=== PATIENT | male | born 1990 | race Caucasian/White ===

== ENCOUNTER 2023-09-28 17:10 | Emergency (ER) | payer MEDICAID, SELFPAY ==
[2023-09-28 17:12] VITALS: BP 193/139; PULSE 118; RESP 18; TEMP 36.7; O2SAT 98; BMI 26.5
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
--- NOTE | 2023-09-28 19:33 | EKG12_ITS ---
Test Reason : MHC Blood Pressure : / mmHG Vent. Rate : 098 BPM Atrial Rate : 098 BPM P-R Int : 142 ms QRS Dur : 114 ms QT Int : 334 ms P-R-T Axes : 063 087 043 degrees QTc Int : 426 ms Normal sinus rhythm Incomplete right bundle branch block Borderline ECG Confirmed by Trenton Vargas ([id number]), non linear editor NAS NOYOLA ([id number]) on 10/01/2023 10:26:42 AM Referred By: Confirmed By:Trenton Vargas
[2023-09-28 20:00] VITALS: RESP 16; O2SAT 98
[2023-09-28 20:58] LABS: Absolute Lymphocyte Count 1.95 X10^3/uL (0.83-4.51); Absolute Neutrophil Count 7.3 X10^3/uL (2.0-7.7); Basophil# 0.05 X10^3/uL; Basophil% 0.5 % (0-1); Eosinophil# 0.03 X10^3/uL; Eosinophils% 0.3 % (0-5); Hematocrit 44.8 % (40-54); Hemoglobin 14.9 g/dL (13.0-16.5); Lymphocyte # 1.95 X10^3/ul (0.83-4.51); Lymphocyte % 19.5 % (19-41); Mean Corp Hgb Conc 33.3 g/dL (32-36); Mean Corpuscular Hgb 29.8 pg (27.0-32.0); Mean Corpuscular Volume 89.6 fL (80-94); Mean Platelet Vol. 10.8 fl (6.2-12.0); Monocyte# 0.59 X10^3/uL; Monocyte% 5.9 % (0-10); NRBC Flagged by Analyzer 0 % (0-5); Neutrophil # 7.33 X10^3/uL (2.7-7.7); Neutrophil % 73.3 % (47-70); Platelet Count 256 K/mm3 (150-450); RBC Distribution Width CV 12.3 % (11.6-14.6); RBC Distribution Width SD 40.1 fl (35.1-43.9)
[2023-09-28 21:09] LABS: Amphetamine Urine VISTA NEGATIVE (<1000 ng/mL); Barbiturate Urine VISTA NEGATIVE (< 200 ng/mL); Benzodiazepine Urine VISTA NEGATIVE (< 200 ng/mL); Cocaine Urine VISTA NEGATIVE (< 300 ng/mL); Ecstacy Urine VISTA NEGATIVE (< 500 ng/mL); Methadone Urine VISTA NEGATIVE (< 300 ng/mL); PCP Urine VISTA NEGATIVE (< 25 ng/mL); THC Urine VISTA POSITIVE (< 50 ng/mL); Vista UDS pH Range 5
[2023-09-28 21:11] LABS: Anion Gap 2 (5-15); BUN 16 mg/dL (7-18); BUN/Creat Ratio 15.7 RATIO (10-20); Calcium,Total 8.7 mg/dL (8.5-10.1); Chloride 113 mmol/L (98-107); Creatinine, Serum 1.02 mg/dL (0.70-1.30); EST Glomerular Filtration Rate 88 mL/min (>60); Est Glom Filt Rate - Afr Amer 107 mL/min (>60); Estimated Creatinine Clearance 105.36 ml/min; Glucose 114 mg/dL (74-106); Potassium 3.7 mmol/L (3.5-5.1); Sodium Level 143 mmol/L (136-145)
[2023-09-28 22:00] VITALS: RESP 16; O2SAT 98
[2023-09-29] VITALS: BP 126/74; PULSE 78; RESP 16; TEMP 36.6; O2SAT 97
[2023-09-29 02:00] VITALS: PULSE 74; RESP 16; O2SAT 97
[2023-09-29 04:00] VITALS: BP 122/72; PULSE 72; RESP 16; TEMP 36.6; O2SAT 98
[2023-09-29 06:00] VITALS: PULSE 71; RESP 16; O2SAT 97
[2023-09-29 06:49] VITALS: BP 122/72; PULSE 71; RESP 16; TEMP 36.6; O2SAT 98
--- NOTE | 2023-09-29 07:46 | ED.RN ---
report given to transport team.
--- NOTE | 2023-09-29 08:02 | ED.RN ---
called facility to confirm they had recieved report. no further questions. let them know pt has left our facility
== END 2023-09-29 07:59 ==
PROVIDERS: Emergency Provider Emergency Medicine; Visit Provider Emergency Medicine
DX: F23 Brief psychotic disorder (principal); F12.90 Cannabis use, unspecified, uncomplicated
CPT/HCPCS: 80048; 80307; 80320; 85025; 87635; 93005; 99283; G0480

== ENCOUNTER 2023-12-13 19:06 | Emergency (ER) | payer MEDICAID, SELFPAY ==
[2023-12-13 19:07] VITALS: BP 152/90; PULSE 106; RESP 16; TEMP 36.6; O2SAT 99; BMI 23.6
--- NOTE | 2023-12-13 19:26 | EKG12_ITS ---
Test Reason : DYSRHYTHMIA Blood Pressure : / mmHG Vent. Rate : 097 BPM Atrial Rate : 097 BPM P-R Int : 136 ms QRS Dur : 110 ms QT Int : 332 ms P-R-T Axes : 069 092 055 degrees QTc Int : 421 ms Normal sinus rhythm Rightward axis Incomplete right bundle branch block Borderline ECG Confirmed by Trenton Vargas ([id number]), publication editor DAILY LOU ([id number]) on 12/17/2023 10:24:14 AM Referred By: Confirmed By:Trenton Vargas
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
--- NOTE | 2023-12-13 19:40 | RAD_ITS ---
STUDY: X-RAY CHEST REASON FOR EXAM: Male, 33 years old. chest pain TECHNIQUE: Single frontal view of the chest. COMPARISON: None. FINDINGS: The lungs are clear and expanded. There is no demonstrated pleural abnormality. Normal size heart. Normal mediastinum and sharad. Normal visualized pulmonary arteries. Normal visualized aortic arch and descending thoracic aorta. Normal visualized thoracic spine. Normal visualized ribs, clavicles, and shoulders. There is no demonstrated abnormality of the visualized soft tissue structures of the upper abdomen. RAD/Chest 1 View (Portable) IMPRESSION: Normal x-ray examination of the chest. Electronically Signed: Gaston Sprague MD at 20:18 EDT ,
[2023-12-13 19:48] LABS: Absolute Lymphocyte Count 2.44 X10^3/uL (0.83-4.51); Absolute Neutrophil Count 8.6 X10^3/uL (2.0-7.7); Basophil# 0.07 X10^3/uL; Basophil% 0.6 % (0-1); Eosinophil# 0.13 X10^3/uL; Hematocrit 46.1 % (40-54); Hemoglobin 15.3 g/dL (13.0-16.5); Lymphocyte # 2.44 X10^3/ul (0.83-4.51); Lymphocyte % 19.5 % (19-41); Mean Corp Hgb Conc 33.2 g/dL (32-36); Mean Corpuscular Volume 87.3 fL (80-94); Monocyte# 1.25 X10^3/uL; NRBC Flagged by Analyzer 0 % (0-5); Neutrophil # 8.57 X10^3/uL (2.7-7.7); Neutrophil % 68.3 % (47-70); Platelet Count 234 K/mm3 (150-450); RBC Distribution Width CV 12.7 % (11.6-14.6); RBC Distribution Width SD 39.9 fl (35.1-43.9); Red Blood Count 5.28 M/mm3 (4.6-6.2); White Blood Count 12.5 K/mm3 (4.4-11.0)
[2023-12-13 20:07] LABS: Amphetamine Urine VISTA POSITIVE (<1000 ng/mL); Barbiturate Urine VISTA NEGATIVE (< 200 ng/mL); Benzodiazepine Urine VISTA NEGATIVE (< 200 ng/mL); Cocaine Urine VISTA NEGATIVE (< 300 ng/mL); Ecstacy Urine VISTA POSITIVE (< 500 ng/mL); Methadone Urine VISTA NEGATIVE (< 300 ng/mL); PCP Urine VISTA NEGATIVE (< 25 ng/mL); THC Urine VISTA POSITIVE (< 50 ng/mL); Vista UDS pH Range 5
[2023-12-13 20:09] LABS: ALB/GLOB Ratio 1.2 RATIO (0.9-2.4); AST(SGOT) 32 U/L (15-37); Alanine Aminotransfer ALT/SGPT 27 U/L (16-61); Albumin, Serum 3.9 g/dL (3.2-5.0); Alkaline Phosphatase 68 U/L (45-117); Anion Gap 6 (5-15); BUN 21 mg/dL (7-18); BUN/Creat Ratio 15.7 RATIO (10-20); Calcium,Total 9.1 mg/dL (8.5-10.1); Chloride 106 mmol/L (98-107); Creatinine, Serum 1.34 mg/dL (0.70-1.30); EST Glomerular Filtration Rate 65 mL/min (>60); Est Glom Filt Rate - Afr Amer 78 mL/min (>60); Estimated Creatinine Clearance 81.95 ml/min; Globulin 3.3 g/dL (2.2-4.2); Glucose 105 mg/dL (74-106); Potassium 3.6 mmol/L (3.5-5.1); Protein, Total 7.2 g/dL (6.4-8.2); Sodium Level 139 mmol/L (136-145); Troponin-I HS 9 pg/mL (3.0-78.0)
[2023-12-13 20:51] LABS: CPK Total, Creatine Kinase 488 U/L (39-308)
[2023-12-13 21:10] VITALS: BP 147/103; PULSE 89; RESP 17; O2SAT 97
[2023-12-13 23:00] VITALS: PULSE 70; RESP 17; TEMP 36.7; O2SAT 96
[2023-12-14 00:26] VITALS: BP 125/97; PULSE 99; RESP 17; TEMP 36.6; O2SAT 98
== END 2023-12-14 00:29 | disposition home or self-care (01) ==
PROVIDERS: Physician Assistant; Emergency Provider Emergency Medicine; Visit Provider Emergency Medicine
DX: R44.0 Auditory hallucinations (principal); F19.19 Other psychoactive substance abuse with unspecified psychoactive substance-induced disorder; F15.10 Other stimulant abuse, uncomplicated; F90.9 Attention-deficit hyperactivity disorder, unspecified type; F17.210 Nicotine dependence, cigarettes, uncomplicated; Z79.899 Other long term (current) drug therapy
CPT/HCPCS: 71045; 80053; 80307; 80320; 82550; 84484; 85025; 93005; 99283; G0480

== ENCOUNTER 2023-12-21 17:30 | Emergency (ER) | payer MEDICAID, SELFPAY ==
[2023-12-21 17:31] VITALS: BP 245/228; PULSE 115; RESP 17; TEMP 36.4; O2SAT 97; BMI 24.3
--- NOTE | 2023-12-21 17:49 | EX.ED.VIS.PS ---
HPI HPI - Psych History of Present Illness Chief Complaint: Mental Health Detail of Chief Complaint: Patient presents because he needs refills on his psychiatric meds. Onset/Context/Timing Onset: Days Timing: Continuous Worsened by: Situational factors (No prescription refills) Associated Symptoms Specific plan (suicidal thought): Not applicable Narrative Narrative: Patient is a 33-year-old male. [facility] in [place]. He was discharged to home on multiple meds. He has no refills. He presents because he wants help and has no refills. He is concerned he will have a lapse and does not want that to occur. He has otherwise no complaints. Prior similar symptoms: Yes Recent Illness/Hospitalization: Yes PFSH PFSH Medical History Smoker Home Medications ?Medication ?Instructions ?Recorded ?Last Taken ?Type guanfacine 2 mg tablet 2 mg PO QHS #30 tabs 12/21/23 Unknown Rx hydroxyzine pamoate 50 mg capsule 50 mg PO TID PRN anxiety #90 caps 12/21/23 Unknown Rx lamotrigine 25 mg tablet 50 mg (2 x 25 mg) PO QHS #60 tabs 12/21/23 Unknown Rx risperidone 0.5 mg tablet 0.5 mg PO QHS #30 tabs 12/21/23 Unknown Rx trazodone 50 mg tablet 50 mg PO QHS PRN insomnia #30 tabs 12/21/23 Unknown Rx Allergy/AdvReac Type Severity Reaction Status Date / Time No Known Allergies Allergy Verified 12/21/23 17:37 Social History Smoking Status: Current every day smoker tobacco type: cigarettes ROS ROS ED Constitutional Constitutional ED: Denies chills, fever(s) or subjective Eyes Eyes: Denies blurry vision or change in vision Cardiovascular Cardiovascular: Denies chest pain or palpitations Respiratory/Chest Respiratory/Chest: Denies cough, dyspnea or dyspnea on exertion Gastrointestinal Gastrointestinal: Denies diarrhea, nausea or vomiting Musculoskeletal Musculoskeletal: Denies arthralgias or myalgias Psychiatric Psychiatric: Reports anxiety; Denies depression, suicidal ideation or suicidal thoughts Endocrine Endocrinology: Denies polydipsia or polyphagia Hematologic/Lymphatic Hematologic/Lymphatic: Denies easy bleeding or easy bruising EXAM Physical Exam Const Vital Signs: 12/21/23 17:31 Temperature 97.6 F L Temperature Source Temporal Pulse Rate 115 H Respiratory Rate 17 Blood Pressure 245/228 H Blood Pressure Mean 233 Pulse Ox 97 Oxygen Delivery Method Room Air Positive well nourished and well developed General Appearance ED: well developed and NAD; Negative for pallor HEENT Reports moist mucous membranes normocephalic and atraumatic Eyes PERRL and EOMs intact bilaterally General Eye ED: Negative for pale conjunctiva or scleral icterus Resp normal respiratory effort Cardio Rate: regular rate Rhythm: regular rhythm Extremity normal to inspection Neuro oriented x3 and CN's II-XII intact bilaterally Sensorium / Orientation: alert Psych mental status grossly normal, thought process normal, cooperative, denies hallucinations, denies homicidal ideation and denies suicidal ideation; Negative for speech normal or activity/motor behavior normal Appearance: grossly normal Attitude: engaged, No uncooperative, No evasive, No belligerent, No agitated, No aggressive and No hostile Activity / Motor Behavior: appropriate eye contact and hyperactive Speech: rapid and pressured Mood & Affect: elevated mood Thought Process: normal thought process Thought Content: normal thought content Attention / Concentration: attention grossly intact Memory / Cognition: memory grossly intact Insight: fair Judgement: fair Skin General Skin Exam: Negative for jaundice or pallor MDM MDM MDM Narrative Medical decision making narrative: Patient presents because he is experiencing some anxiety and agitation. He states he is concerned because he does not have refills on his medication. Will refill his medication. Discharge Plan Triage Chief Complaint: Mental Health ED Provider: Justin Linda Dx/Rx/DC Orders Clinical Impression: Schizoaffective disorder, Difficulty refilling prescriptions, Prescription refill Prescriptions: New guanfacine 2 mg tablet 2 mg PO QHS Qty: 30 0RF lamotrigine 25 mg tablet 50 mg PO QHS Qty: 60 0RF risperidone 0.5 mg tablet 0.5 mg PO QHS Qty: 30 0RF trazodone 50 mg tablet 50 mg PO QHS PRN (Reason: insomnia) Qty: 30 0RF hydroxyzine pamoate 50 mg capsule 50 mg PO TID PRN (Reason: anxiety) Qty: 90 0RF Primary Care Provider: Care Physician,No Primary Referrals: Counseling,Center [Group of Physicians] - 1-2 Weeks Care Physician,No Primary [Primary Care Provider] - Print Language: Tanzanian Disposition Disposition: Home, Self Care
[2023-12-21 18:31] VITALS: BP 127/80; PULSE 67; RESP 16; O2SAT 99
[2023-12-21 18:38] LABS: Absolute Lymphocyte Count 2.62 X10^3/uL (0.83-4.51); Absolute Neutrophil Count 3.4 X10^3/uL (2.0-7.7); Basophil# 0.04 X10^3/uL; Basophil% 0.6 % (0-1); Eosinophil# 0.32 X10^3/uL; Eosinophils% 4.6 % (0-5); Hematocrit 42.5 % (40-54); Hemoglobin 14.2 g/dL (13.0-16.5); Lymphocyte # 2.62 X10^3/ul (0.83-4.51); Lymphocyte % 37.9 % (19-41); Mean Corp Hgb Conc 33.4 g/dL (32-36); Mean Corpuscular Volume 86.9 fL (80-94); Mean Platelet Vol. 11.1 fl (6.2-12.0); Monocyte# 0.54 X10^3/uL; Monocyte% 7.8 % (0-10); NRBC Flagged by Analyzer 0 % (0-5); Neutrophil # 3.37 X10^3/uL (2.7-7.7); Neutrophil % 48.8 % (47-70); Platelet Count 275 K/mm3 (150-450); RBC Distribution Width CV 12.6 % (11.6-14.6); Red Blood Count 4.89 M/mm3 (4.6-6.2); White Blood Count 6.9 K/mm3 (4.4-11.0)
[2023-12-21 18:49] LABS: Anion Gap 5 (5-15); BUN 14 mg/dL (7-18); BUN/Creat Ratio 11.7 RATIO (10-20); Calcium,Total 8.8 mg/dL (8.5-10.1); Chloride 113 mmol/L (98-107); EST Glomerular Filtration Rate 73 mL/min (>60); Est Glom Filt Rate - Afr Amer 89 mL/min (>60); Estimated Creatinine Clearance 88.72 ml/min; Glucose 106 mg/dL (74-106); Potassium 3.8 mmol/L (3.5-5.1); Sodium Level 143 mmol/L (136-145)
[2023-12-21] MEDS: Ziprasidone IM 20 MG/ML VIAL IM (18:58)
[2023-12-21 20:00] VITALS: BP 115/78; PULSE 64; RESP 16; O2SAT 98
[2023-12-21 21:00] VITALS: BP 121/81; PULSE 59; RESP 14; O2SAT 98
[2023-12-21 22:45] LABS: Amphetamine Urine VISTA POSITIVE (<1000 ng/mL); Barbiturate Urine VISTA NEGATIVE (< 200 ng/mL); Benzodiazepine Urine VISTA NEGATIVE (< 200 ng/mL); Cocaine Urine VISTA NEGATIVE (< 300 ng/mL); Ecstacy Urine VISTA POSITIVE (< 500 ng/mL); Methadone Urine VISTA NEGATIVE (< 300 ng/mL); PCP Urine VISTA NEGATIVE (< 25 ng/mL); THC Urine VISTA POSITIVE (< 50 ng/mL); Vista UDS pH Range 5
[2023-12-22 05:08] VITALS: BP 161/85; PULSE 89; RESP 17; TEMP 36.2; O2SAT 97
[2023-12-22 11:29] VITALS: BP 131/84; PULSE 74; RESP 18; TEMP 36.6; O2SAT 98
--- NOTE | 2023-12-22 11:35 | ED.RN ---
Report given to Alex
== END 2023-12-22 11:35 ==
PROVIDERS: Emergency Provider Emergency Medicine; Visit Provider Emergency Medicine
DX: F25.9 Schizoaffective disorder, unspecified (principal); Z76.0 Encounter for issue of repeat prescription; F17.210 Nicotine dependence, cigarettes, uncomplicated
CPT/HCPCS: 80048; 80307; 80320; 85025; 96372; 99283; G0480

== ENCOUNTER 2024-01-02 13:34 | Emergency (ER) | payer MEDICAID, SELFPAY ==
[2024-01-02 13:34] VITALS: BP 127/80; PULSE 77; RESP 18; TEMP 36.7; O2SAT 99; BMI 23.6
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
--- NOTE | 2024-01-02 14:20 | RAD_ITS ---
STUDY: X-RAY - LEFT ELBOW REASON FOR EXAM: Male, 33 years old. Pain following a fall. TECHNIQUE: 3 view(s) of the elbow. COMPARISON: None. FINDINGS: Normal visualized humerus, radius and ulna. Normal radiocapitellar and ulnotrochlear articulations. The soft tissue structures are unremarkable. RAD/Elbow min 3 Views IMPRESSION: Normal x-ray examination of the elbow. Electronically Signed: Thanh Blancas MD at 14:37 EDT ,
[2024-01-02 14:34] VITALS: BP 113/65; PULSE 70; RESP 16; O2SAT 98
[2024-01-02] MEDS: Acetaminophen 325 MG Tablet 650 MG PO (14:48)
[2024-01-02 14:59] VITALS: BP 113/65; PULSE 70; RESP 16; TEMP 36.6; O2SAT 98
== END 2024-01-02 14:58 | disposition home or self-care (01) ==
PROVIDERS: Emergency Provider Emergency Medicine; PCP Nurse Practitioner Family; Visit Provider Emergency Medicine
DX: S40.012A Contusion of left shoulder, initial encounter (principal); Y92.410 Unspecified street and highway as the place of occurrence of the external cause; F17.210 Nicotine dependence, cigarettes, uncomplicated; S50.02XA Contusion of left elbow, initial encounter; V18.0XXA Pedal cycle driver injured in noncollision transport accident in nontraffic accident, initial encounter
CPT/HCPCS: 73030; 73080; 99283

== ENCOUNTER 2024-04-17 19:47 | Emergency (ER) | payer MEDICAID, SELFPAY ==
[2024-04-17 19:47] VITALS: BP 138/90; PULSE 76; RESP 18; TEMP 36.7; O2SAT 98; BMI 25.1
--- NOTE | 2024-04-17 21:42 | ED.RN ---
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
== END 2024-04-17 21:42 | disposition left against medical advice (07) ==
LOC: ED 22:50
PROVIDERS: PCP Nurse Practitioner Family
DX: R11.2 Nausea with vomiting, unspecified (principal)

== ENCOUNTER 2024-04-17 23:28 | Inpatient (IN) | payer MEDICAID, SELFPAY ==
[2024-04-17 23:29] VITALS: BP 129/102; PULSE 127; RESP 20; TEMP 36.6; O2SAT 93; BMI 24.3
[2024-04-18] VITALS (8 sets, daily range): BP systolic 120–159; BP diastolic 67–100; PULSE 104–128; RESP 14–18; TEMP 36.3–37.2; O2SAT 95–99; BMI 24.1
[2024-04-18] MEDS: 0.9% Normal Saline (1000mL) 1,000 ML 999 ML IV ×3 (00:01→02:23)
[2024-04-18] MEDS: Ondansetron 4 MG/2 ML Vial IV (00:01)
[2024-04-18 00:07] LABS: Absolute Lymphocyte Count 0.92 X10^3/uL (0.83-4.51); Absolute Neutrophil Count 22.7 X10^3/uL (2.0-7.7); Basophil# 0.09 X10^3/uL; Basophil% 0.4 % (0-1); Hematocrit 48.9 % (40-54); Hemoglobin 16.7 g/dL (13.0-16.5); Lymphocyte # 0.92 X10^3/ul (0.83-4.51); Lymphocyte % 3.6 % (19-41); Mean Corp Hgb Conc 34.2 g/dL (32-36); Mean Corpuscular Hgb 29.5 pg (27.0-32.0); Mean Corpuscular Volume 86.4 fL (80-94); Mean Platelet Vol. 10.5 fl (6.2-12.0); Monocyte# 1.43 X10^3/uL; Monocyte% 5.6 % (0-10); NRBC Flagged by Analyzer 0 % (0-5); Neutrophil # 22.72 X10^3/uL (2.7-7.7); Neutrophil % 89.3 % (47-70); POSITIVE DIFFERENTIAL YES; Platelet Count 330 K/mm3 (150-450); RBC Distribution Width CV 13.2 % (11.6-14.6); RBC Distribution Width SD 41.1 fl (35.1-43.9); Red Blood Count 5.66 M/mm3 (4.6-6.2); White Blood Count 25.5 K/mm3 (4.4-11.0)
[2024-04-18 00:10] LABS: Differential Indicated SCAN CRITERIA MET
[2024-04-18 00:16] LABS: AST(SGOT) 59 U/L (15-37); Alanine Aminotransfer ALT/SGPT 61 U/L (16-61); Albumin, Serum 4.8 g/dL (3.2-5.0); Alkaline Phosphatase 85 U/L (45-117); Anion Gap 16 (5-15); BUN 31 mg/dL (7-18); BUN/Creat Ratio 10.8 RATIO (10-20); Bilirubin, Direct 0.37 mg/dL (0.00-0.30); Calcium,Total 10.2 mg/dL (8.5-10.1); Chloride 101 mmol/L (98-107); Creatinine, Serum 2.87 mg/dL (0.70-1.30); EST Glomerular Filtration Rate 27 mL/min (>60); Est Glom Filt Rate - Afr Amer 32 mL/min (>60); Estimated Creatinine Clearance 38.26 ml/min; Globulin 3.6 g/dL (2.2-4.2); Glucose 125 mg/dL (74-106); Lipase 17 U/L (13-75); Magnesium 2.2 mg/dL (1.6-2.6); Potassium 4.5 mmol/L (3.5-5.1); Protein, Total 8.4 g/dL (6.4-8.2); Sodium Level 137 mmol/L (136-145)
--- NOTE | 2024-04-18 00:30 | CT_ITS ---
EXAM: CT ABDOMEN AND PELVIS WITHOUT INTRAVENOUS CONTRAST CLINICAL INDICATION: PAIN TECHNIQUE: Helically acquired images were obtained of the abdomen and pelvis without intravenous contrast. This CT exam was performed using one or more of the following dose reduction techniques: automated exposure control, adjustment of the mA and/or kV according to patient size, and/or use of iterative reconstruction technique. RADIATION DOSE: Total DLP: 360.48 mGy-cm. COMPARISON: No relevant prior studies available. FINDINGS: LOWER THORAX: Isolated focus of subpleural bronchiectasis within the posterior aspect of the right lower lobe; the most distal portion of this dilated bronchus is opacified by secretions or mucous plugging. No acute basilar pulmonary infiltrates or pleural effusions are identified. No coronary artery calcification. No significant pericardial effusion. ABDOMEN: LIVER: Unremarkable. Homogeneous. GALLBLADDER AND BILE DUCTS: Unremarkable. No calcified gallstones. No gallbladder distention or wall edema. No intra- or extrahepatic biliary ductal dilation. PANCREAS: Unremarkable. No focal cystic mass. SPLEEN: Unremarkable. Normal size without focal cystic or solid mass. ADRENALS: Unremarkable. No nodules. KIDNEYS AND URETERS: Unremarkable. Normal renal size and position. No renal or obstructing ureteral stones. No perirenal stranding or hydronephrosis. STOMACH AND BOWEL: No gastric mural thickening, periduodenal inflammatory changes or distended small bowel loops. The descending and rectosigmoid colon are decompressed/empty. The wall of the distal sigmoid colon is thicker/more prominent in the proximal sigmoid wall, raising the possibility of a mild colitis, in the appropriate clinical setting. No findings of diverticulitis or small bowel obstruction. No pneumatosis or additional air. PELVIS: APPENDIX: Normal appendix. No CT findings of acute appendicitis. BLADDER: Unremarkable. REPRODUCTIVE: Unremarkable as visualized. No mass. ABDOMEN and PELVIS: INTRAPERITONEAL SPACE: Unremarkable. No ascites or other fluid collection. No free air. BONES/JOINTS: No acute osseous abnormality. Sacralization of L5 is present. No suspicious lytic or blastic abnormality. SOFT TISSUES: A small fat-filled umbilical hernia is incidentally noted. VASCULATURE: Unremarkable. Abdominal aorta is non-dilated. LYMPH NODES: A few small pericecal lymph nodes are present but these do not fulfill the size criteria for mesenteric adenitis. No adenopathy. CT/Abdomen/Pelvis without Cont IMPRESSION: 1. Thickening of the distal colonic wall, primarily due to lack of distention but a mild colitis of the distal sigmoid colon may also be present, and clinical correlation is suggested. 2. Normal appendix. 3. No findings of small bowel obstruction or obstructive uropathy. Electronically Signed: Dayton Hanna MD at 2:22 EDT ,
[2024-04-18 00:56] LABS: Differential Comment SCANNED
--- NOTE | 2024-04-18 02:28 | HP.PCM.HOS_ITS ---
HPI - General General Date of Admission: 04/18/24 Date of Service: 04/18/24 Chief Complaint: N/V/D HPI Narrative The patient is a 33 y/o M w/ PMHx: Anxiety and Depression/Mood disorder/High suspicion underlying schizophrenia with history of frequent auditory hallucinations, Tobacco use, CKD stage II per GFR trending, History of Polysubstance abuse (Fentanyl, Methamphetamines per prior records) who presents to the [facility] ED on 04/18/24 with history of onset significant nausea, emesis and diarrhea starting at 4 in the afternoon reporting recent ill contacts at work not abating prompted eventual ED evaluation to be cautious. Patient notes mild generalized abdominal discomfort more so cramping although lessened since initial ED arrival. Upon evaluation in the ED notes his nausea is currently abated. Workup in the ED included T98, heart rate 76, BP 138/90, respiratory rate 18, 98% on room air with most recent repeat vital signs T97.9 Orally, heart rate 127, BP 129/102, respiratory rate 20, 93% on room air, CBC with WBC 25.5, hemoglobin 16.7, platelet 330 with left shift, CMP with, oxide 20, anion gap 16, BUN/creatinine 31/2.7, GFR 27, glucose 125, calcium 10.2, magnesium 2.2, T. bili 1.50, D bili 0.37, AST/ALT 59/61, alk phos 85, lipase 17, CT A/P with with thickening of the distal colonic wall primarily due to lack of distention but a mild colitis of the distal sigmoid colon may also be present, normal appendix with no findings of bowel obstruction or obstructive uropathy, SARS COVID/influenza/RSV PCR with positive COVID PCR. In the ED patient ministered 2 L normal saline as well as Zofran 4 mg IV x 1. PFSH Medical History ADHD Schizophrenia Mood disorder Anxiety and depression CKD (chronic kidney disease), stage II Polysubstance abuse Tobacco use Home Medications ?Medication ?Instructions ?Recorded ?Last Taken ?Type guanfacine 2 mg tablet 2 mg PO QHS #30 tabs 12/21/23 Unknown Rx atomoxetine 40 mg capsule 40 mg PO DAILY 04/18/24 Unknown History (Strattera) Allergy/AdvReac Type Severity Reaction Status Date / Time No Known Allergies Allergy Verified 04/17/24 23:29 Family History (Updated 04/18/24 @ 02:[address] Lucero Vidal MD) Mother Kidney disease Father Cancer Surgical History (Updated 04/18/24 @ 02:[address] Lucero Vidal MD) History of dental surgery History of tonsillectomy and adenoidectomy Social History (Updated 04/18/24 @ 02:[address] Lucero Vidal MD) household members: other details: Lives with his uncle. Smoking Status: Current every day smoker tobacco type: cigarettes Smoking packs per day: 0.5 Smoking cigarettes per day: 10.0 alcohol intake: never substance use type: former substance user Date of last use: Fentanyl, Methamphetamines per prior records. ROS ROS Narrative Admission Review of Systems: CONSTITUTIONAL: No weight loss, fever, chills, + weakness or fatigue. HEENT: Eyes: No visual loss, blurred vision, double vision or yellow sclerae. Ears, Nose, Throat: No hearing loss, sneezing, congestion, runny nose or sore throat. SKIN: No rash or itching, lesions, wounds. CARDIOVASCULAR: No chest pain, chest pressure or chest discomfort, palpitations, edema, orthopnea, syncopal events. RESPIRATORY: No shortness of breath, cough or sputum, wheezing, hemoptysis. GASTROINTESTINAL: + anorexia, nausea, vomiting, or diarrhea, abdominal pain. No melena, BRBPR. GENITOURINARY: No dysuria, frequency, urgency or retention. NEUROLOGICAL: No headache, dizziness, syncope, paralysis, ataxia, numbness or tingling in the extremities, focal weakness, change in bowel or bladder control, seizure. MUSCULOSKELETAL: + muscle, back pain, joint pain or stiffness. HEMATOLOGIC: No anemia, bleeding or bruising. LYMPHATICS: No enlarged nodes. No history of splenectomy. PSYCHIATRIC: + History of anxiety depression/mood disorder/ADHD/schizophrenia. ENDOCRINOLOGIC: No reports of sweating, cold or heat intolerance. No polyuria or polydipsia. ALLERGIES: No history of asthma, hives, eczema or rhinitis. Vital Signs Vital Signs Vital Signs: 04/17/24 23:29 04/18/24 01:29 Temperature 97.9 F Temperature Source Oral Pulse Rate 127 H 128 H Respiratory Rate 20 H 18 Blood Pressure 129/102 H 159/100 H Blood Pressure Mean 111 119 Pulse Ox 93 97 Oxygen Delivery Method Room Air Room Air Weight Weight: 174 lb 13.225 oz Body Mass Index (BMI) 24.3 Physical Exam Narrative Physical Examination: General: Awake, alert, oriented x 3 and cooperative, laying in the ED bed, fatigued but notes he is feeling improved since initial ED arrival. Skin: Normal color, normal turgor, no icterus, no cyanosis except occasional staged ecchymoses. HEENT: AT/NC, EOMI, PERRLA, dry MM, lacking dentition, no carotid bruits or JVD noted. Lungs: Diminished, greater bases, appropriate effort, no rales, ronchi or wheezing. Heart: Tachycardic with regular rhythm; no gallop, rub audible. Abdomen: Soft, mild generalized discomfort with palpation but no rebound or guarding,, ND, hyperactive BS, no appreciated HSM. Extremities: No cyanosis, clubbing, or edema. Neurological: Patient awake, alert, oriented as noted, cognitive function intact; pupils equally reactive to light and accommodation, cranial nerves gross normal, moving all 4 extremities, no focal deficits, strength moderately global decrease secondary to acute presentation Psychiatric: Affect appears fatigued, ill-appearing, no acute evidence of depressive or anxiety feelings but does have underlying significant psychiatric history Results Lab / Micro Data 04/17/24 23:50 04/17/24 23:50 Labs: Laboratory Results - last 24 hr 04/17/24 23:50: WBC 25.5 H, RBC 5.66, Hgb 16.7 H, Hct 48.9, MCV 86.4, MCH 29.5, MCHC 34.2, RDW Std Deviation 41.1, RDW Coeff of Thomas 13.2, Plt Count 330, MPV 10.5, Immature Gran % (Auto) 1.100 H, Neut % (Auto) 89.3 H, Lymph % (Auto) 3.6 L , [place] % (Auto) 5.6, Eos % (Auto) 0.0, Baso % (Auto) 0.4, Absolute Neuts (auto) 22.7 H, Absolute Lymphs (auto) 0.92, Nucleated RBC % 0, Differential Comment SCANNED, Sodium 137, Potassium 4.5, Chloride 101, Carbon Dioxide 20.0 L, Anion Gap 16 H, BUN 31 H, Creatinine 2.87 H, Estim Creat Clear Calc 38.26, Est GFR (MDRD) Af Amer 32 L, Est GFR (MDRD) Non-Af 27 L, BUN/Creatinine Ratio 10.8, G lucose 125 H, Calcium 10.2 H, Magnesium 2.2, Total Bilirubin 1.50 H, Direct Bilirubin 0.37 H, AST 59 H, ALT 61, Alkaline Phosphatase 85, Total Protein 8.4 H , Albumin 4.8, Globulin 3.6, Lipase 17 Micro: Microbiology 04/18/24 00:35 Mucosa - Nose SARS-CoV-2, Influenza & RSV (PCR) - Final SARS-CoV-2 (COVID 19 PCR) Imaging Radiology Impression Abdomen/Pelvis CT 04/18/24 00:30 IMPRESSION: 1. Thickening of the distal colonic wall, primarily due to lack of distention but a mild colitis of the distal sigmoid colon may also be present, and clinical correlation is suggested. 2. Normal appendix. 3. No findings of small bowel obstruction or obstructive uropathy. Electronically Signed: Dayton Hanna MD at 2:22 EDT , Assessment & Plan Assessment/Plan (1) COVID-19: (2) ISABELLA (acute kidney injury): PLAN: Plan The patient is a 33 y/o M w/ PMHx: Anxiety and Depression/Mood disorder/High suspicion underlying schizophrenia with history of frequent auditory hallucinations, Tobacco use, CKD stage II per GFR trending, History of Polysubstance abuse (Fentanyl, Methamphetamines per prior records) who presents to the [facility] ED on 04/18/24 with history of onset significant nausea, emesis and diarrhea starting at 4 in the afternoon reporting recent ill contacts at work not abating prompted eventual ED evaluation to be cautious. #1. Acute Intractable N/V/D with possible mild colitis of the distal sigmoid colon secondary to Acute Viral Syndrome, COVID-19: Will admit to the [facility] telemetry, maintain on COVID precautions, currently not requiring any oxygen supplementation, PRN albuterol, HOB, IS parameters w/ pending D-dimer, procalcitonin, CRP, CPK, Ferritin, LDH, trop and BNP, continue supportive care including q 2 hour turning including prone given no prone bed availability and judicious hydration, closely monitor for worsening status for ARDS and multiorgan failure, given patient oxygenation decreased to 93% in the ED will initiate IV Decadron steroid therapy, also given presentation with severe nausea/emesis/diarrhea resulting in significant acute kidney injury will also initiate IV remdesivir but defer to discretion of Infectious disease. To be cautious however will also obtain C. difficile PCR as well as enteric pathogens. Will allow clear liquids until clinically improving, maintain on IV PPI, Anti- emetics/pain regimen PRN. If procalcitonin is significantly elevated will also add IV Zosyn to be cautious. #2. Acute kidney injury on CKD stage II per prior GFR trending: Secondary to acute presentation #1, GI losses. Admission BUN/Cr 31/2.87, GFR 27, prior baseline creatinine noted to be 1.0-1.3, most recently prior 12/20/creatinine 1.20 at that time. Will continue to hydrate, hold nephrotoxic medications and repeat chemistry in AM. Given trended GFR consistent with CKD stage II and age of 33 would benefit from early outpatient follow-up with nephrology to continue to evaluate underlying renal disease. #3. Elevated BP without hypertensive diagnosis: Potentially related with pain, acute presentation, continue to monitor and add regimen if necessary, as needed IV hydralazine in the interim. #4. Mild hyperbilirubinemia, transaminitis: Admission CMP with T. bili 1.50, D bili 0.37, AST/LT 59/61, no previous marked elevations prior in the setting of previous polysubstance abuse of note, hepatitis panel has been requested to be cautious, likely related with #1, will continue hydration and repeat CMP in the AM. #5. Anxiety and depression/mood disorder/high suspicion underlying schizophrenia with history of frequent auditory hallucinations/ADHD: Clarifying patient home psychiatric region, had prior been noted to be on hydroxyzine, lamotrigine, risperidone and trazodone but currently only strattera is listed which will be held. #6. History of polysubstance abuse: Noted history per chart review of prior fentanyl and methamphetamine usage, reports currently being clean, UDS requested, encouraged continued clean status, given history to be cautious will obtain HIV, syphilis and hepatitis panel. #7. Tobacco Abuse: Encouraged cessation, inpatient consultation per RT, NR if desired. #8. DVT prophylaxis: Heparin. Charges/Coding Visit Charges Inpatient E&M: 32790 Init Hosp L3
--- NOTE | 2024-04-18 02:54 | EX.ED.DYSGE1 ---
HPI History of Present Illness Chief Complaint: Nausea/Vomiting Informant: patient Narrative Narrative: Patient is a 33-year-old male with past medical history of polysubstance abuse ADHD and schizophrenia. He states that in person he works with has been sick. He states today he started with nausea and vomiting as well as some loose stool and diarrhea. He states that he is feeling rundown tired and fatigued and with concern that he picked up an infection from his coworker comes in for evaluation PFSH PFSH Medical History ADHD Schizophrenia Mood disorder Anxiety and depression CKD (chronic kidney disease), stage II Polysubstance abuse Tobacco use Home Medications ?Medication ?Instructions ?Recorded ?Last Taken ?Type guanfacine 2 mg tablet 2 mg PO QHS #30 tabs 12/21/23 Unknown Rx atomoxetine 40 mg capsule 40 mg PO DAILY 04/18/24 Unknown History (Strattera) Allergy/AdvReac Type Severity Reaction Status Date / Time No Known Allergies Allergy Verified 04/17/24 23:29 Family History (Updated 04/18/24 @ 02:[address] Lucero Vidal MD) Mother Kidney disease Father Cancer Surgical History (Updated 04/18/24 @ 02:[address] Lucero Vidal MD) History of dental surgery History of tonsillectomy and adenoidectomy Social History (Updated 04/18/24 @ 02:[address] Lucero Vidal MD) household members: other details: Lives with his uncle. Smoking Status: Current every day smoker tobacco type: cigarettes Smoking packs per day: 0.5 Smoking cigarettes per day: 10.0 alcohol intake: never substance use type: former substance user Date of last use: Fentanyl, Methamphetamines per prior records. ROS ROS ED Constitutional Constitutional ED: Denies chills or fever(s) ENT ENT ED: Denies sore throat Cardiovascular Cardiovascular: Denies chest pain Respiratory/Chest Respiratory/Chest: Denies cough or dyspnea Gastrointestinal Gastrointestinal: Reports diarrhea, nausea and vomiting; Denies abdominal pain Genitourinary Genitourinary ED: Denies dysuria Musculoskeletal Musculoskeletal: Reports myalgias Integumentary Denies rash Neurologic Neurologic: Reports weakness; Denies headache(s) Hematologic/Lymphatic Hematologic/Lymphatic: Denies easy bleeding or easy bruising EXAM Physical Exam Const Vital Signs: 04/17/24 23:29 04/18/24 01:29 Temperature 97.9 F Temperature Source Oral Pulse Rate 127 H 128 H Respiratory Rate 20 H 18 Blood Pressure 129/102 H 159/100 H Blood Pressure Mean 111 119 Pulse Ox 93 97 Oxygen Delivery Method Room Air Room Air Positive well nourished and well developed General Appearance ED: well developed; Negative for pallor HEENT Reports dry mucous membranes HEENT Narrative: Mucous membranes are dry and tacky No tongue or lip swelling no oral lesions no airway edema or compromise No secondary findings in the posterior pharynx to suggest infection Mouth ED: Yes dry mucous membranes Mouth: dry mucous membranes Eyes PERRL and EOMs intact bilaterally General Eye ED: Negative for scleral icterus Neck supple Neck Narrative: No nuchal rigidity or meningeal signs noted Chest Wall palpation of chest normal Resp normal respiratory effort Resp Narrative: Faint rhonchi noted in bilateral lower lobes but no nasal flaring retractions tachypnea or accessory muscle use Cardio regular rhythm Rate: tachycardic and other Other Details: Tachycardic rate with regular rhythm No murmurs rubs or gallop Radial and carotid pulses are equal and symmetric GI non-distended and no masses GI Narrative: Abdomen is soft and nondistended with hyperactive bowel sounds. There is mild diffuse pain with palpation without voluntary guarding or rigidity. No pulsatile mass or fluid wave Auscultation: hyperactive bowel sounds Palpation: soft Extremity normal to inspection Neuro oriented x3, CN's II-XII intact bilaterally and no sensory deficits noted Sensorium / Orientation: alert Motor Exam: strength 5/5 throughout Psych mental status grossly normal Skin no rashes or lesions noted and No skin turgor normal Skin Narrative: Skin turgor is increased General Skin Exam: Negative for jaundice or pallor MDM MDM MDM Narrative Medical decision making narrative: Patient arrived to the ER hypertensive and tachycardic. He reported 1 day of generalized fatigue with nausea vomiting and diarrhea and known sick contact. Differential diagnosis is for viral stomach infection such as rotavirus versus [place] virus. There is also potential this could be related to COVID biliary colic acute cholecystitis pancreatitis or colitis/diverticulitis. Secondary to his basic labs were obtained. Patient's white count was elevated at [address] scan was ordered. This revealed no acute abdominal pathology. COVID test was positive which does correlate with his symptoms. The patient also has elevation to his creatinine at 2.87 when chart review reveals that in November of this year his creatinine was normal at 1.2. Therefore at this time as patient has acute kidney injury and findings consistent with acute dehydration I do feel that he would benefit from admission and continued IV hydration. Secondary to this medicine was contacted and they do agree to accept the patient this time for continued care History & Record Review Discussion w/independent historian: Patient Lab Data Attestation: I reviewed the patient's lab results. Labs: Laboratory Results - last 24 hr 04/17/24 23:50 WBC 25.5 H RBC 5.66 Hgb 16.7 H Hct 48.9 MCV 86.4 MCH 29.5 MCHC 34.2 RDW Std Deviation 41.1 RDW Coeff of Thomas 13.2 Plt Count 330 MPV 10.5 Immature Gran % (Auto) 1.100 H Neut % (Auto) 89.3 H Lymph % (Auto) 3.6 L [place] % (Auto) 5.6 Eos % (Auto) 0.0 Baso % (Auto) 0.4 Absolute Neuts (auto) 22.7 H Absolute Lymphs (auto) 0.92 Nucleated RBC % 0 Differential Comment SCANNED Sodium 137 Potassium 4.5 Chloride 101 Carbon Dioxide 20.0 L Anion Gap 16 H BUN 31 H Creatinine 2.87 H Estim Creat Clear Calc 38.26 Est GFR (MDRD) Af Amer 32 L Est GFR (MDRD) Non-Af 27 L BUN/Creatinine Ratio 10.8 Glucose 125 H Calcium 10.2 H Magnesium 2.2 Ferritin 175 Total Bilirubin 1.50 H Direct Bilirubin 0.37 H AST 59 H ALT 61 Alkaline Phosphatase 85 Lactate Dehydrogenase 338 H C-React Prot Ext Range 2.95 B-Natriuretic Peptide 14.3 Total Protein 8.4 H Albumin 4.8 Globulin 3.6 Lipase 17 Radiography Diagnostic Testing: Clinical Impression(s) from Imaging Studies Abdomen/Pelvis CT 04/18/24 00:30 IMPRESSION: 1. Thickening of the distal colonic wall, primarily due to lack of distention but a mild colitis of the distal sigmoid colon may also be present, and clinical correlation is suggested. 2. Normal appendix. 3. No findings of small bowel obstruction or obstructive uropathy. Electronically Signed: Dayton Hanna MD at 2:22 EDT , Discharge Plan Dx/Rx/DC Orders Clinical Impression: COVID-19, ISABELLA (acute kidney injury) Disposition Disposition: Acute Care Hospital [facility] Discharge Date/Time: 04/18/24 03:10
[2024-04-18 03:21] LABS: CRP 2.95 mg/L (0.0-3.0); Ferritin 175 ng/mL (26-388); LDH 338 U/L (87-241)
[2024-04-18 03:23] LABS: D-Dimer Quantitative (DVT/PE) 0.39 FEU/ug/m (0.27-0.49)
[2024-04-18 03:25] LABS: BNP,B-Type NATRIURETIC PEPTIDE 14.3 pg/mL (0-100)
[2024-04-18 03:27] LABS: CPK Total, Creatine Kinase 790 U/L (39-308)
[2024-04-18 03:41] LABS: Amphetamine Urine POSITIVE (<1000 ng/mL); Barbiturate Urine NEGATIVE (< 200 ng/mL); Benzodiazepine Urine NEGATIVE (< 200 ng/mL); Cocaine Urine NEGATIVE (< 300 ng/mL); Ecstacy Urine POSITIVE (< 500 ng/mL); Methadone Urine NEGATIVE (< 300 ng/mL); Opiates Urine NEGATIVE (< 300 ng/mL); PCP Urine NEGATIVE (< 25 ng/mL); THC Urine POSITIVE (< 50 ng/mL); Vista UDS pH Range 3
[2024-04-18] MEDS: dexAMETHasone 4 MG/ML Vial 6 MG IV (04:05)
[2024-04-18] MEDS: Heparin Injection (Vial) 5,000 UNIT/ML VIAL 5000 UNIT SC ×3 (04:06→21:24)
[2024-04-18] MEDS: 0.9% Normal Saline (1000mL) 1,000 ML 100 ML IV ×2 (04:07→15:10)
[2024-04-18] MEDS: Pantoprazole Sodium 40 MG in 0.9% Normal Saline (100mL MB+) 100 ML 330 MG IV ×3 (04:07→21:57)
[2024-04-18 04:37] LABS: Procalcitonin 3.46 ng/mL (0.00-0.09)
[2024-04-18] MEDS: Remdesivir 200 MG in 0.9% Normal Saline (250mL Bag) 210 ML 250 MG IV (04:48)
[2024-04-18] MEDS: Piperacil/Tazobactam 3.375 GM in 0.9% Normal Saline (50mL MB+) 50 ML IV ×3 (08:26→21:57)
[2024-04-18 08:34] LABS: Absolute Lymphocyte Count 1.05 X10^3/uL (0.83-4.51); Absolute Neutrophil Count 15.1 X10^3/uL (2.0-7.7); Basophil# 0.02 X10^3/uL; Basophil% 0.1 % (0-1); Hematocrit 43.8 % (40-54); Hemoglobin 14.8 g/dL (13.0-16.5); Lymphocyte # 1.05 X10^3/ul (0.83-4.51); Lymphocyte % 6.3 % (19-41); Mean Corp Hgb Conc 33.8 g/dL (32-36); Mean Corpuscular Hgb 29.5 pg (27.0-32.0); Mean Corpuscular Volume 87.3 fL (80-94); Mean Platelet Vol. 10.2 fl (6.2-12.0); Monocyte# 0.33 X10^3/uL; NRBC Flagged by Analyzer 0 % (0-5); Neutrophil # 15.09 X10^3/uL (2.7-7.7); Neutrophil % 91.2 % (47-70); Platelet Count 269 K/mm3 (150-450); RBC Distribution Width CV 13.3 % (11.6-14.6); RBC Distribution Width SD 42.8 fl (35.1-43.9); Red Blood Count 5.02 M/mm3 (4.6-6.2); White Blood Count 16.6 K/mm3 (4.4-11.0)
[2024-04-18 09:10] LABS: ALB/GLOB Ratio 1.2 RATIO (0.9-2.4); AST(SGOT) 62 U/L (15-37); Alanine Aminotransfer ALT/SGPT 51 U/L (16-61); Albumin, Serum 3.8 g/dL (3.2-5.0); Alkaline Phosphatase 72 U/L (45-117); Anion Gap 10 (5-15); BUN 24 mg/dL (7-18); BUN/Creat Ratio 14.6 RATIO (10-20); Calcium,Total 8.9 mg/dL (8.5-10.1); Chloride 109 mmol/L (98-107); Creatinine, Serum 1.64 mg/dL (0.70-1.30); EST Glomerular Filtration Rate 51 mL/min (>60); Est Glom Filt Rate - Afr Amer 62 mL/min (>60); Estimated Creatinine Clearance 66.96 ml/min; Globulin 3.1 g/dL (2.2-4.2); Glucose 116 mg/dL (74-106); Potassium 4.2 mmol/L (3.5-5.1); Protein, Total 6.9 g/dL (6.4-8.2); Sodium Level 139 mmol/L (136-145)
--- NOTE | 2024-04-18 12:38 | CM.UR ---
SW met with pt to complete assessment. Pt sitting on the bed, A&Ox3 and willing to talk with SW. Demographics, providers and pharmacy confirmed. PCP: Katelyn Vieira NP Specialist: Psychiatrist at [facility] Insurance: [employer] Prescription Benefit: Yes LNOK: Tahir Vidal, mother who lives in [place] Living Situation: Pt lives in a mobile home with 3 steps to enter. Pt lives with his uncle and uncles girlfriend. ADLs/IADLs: Pt is independent with all ADLS and IADLS. Pt works [employer] DME: None Transportation: Pt has an ebike that he uses for transportation Mental Health: pt with diagnosis of ADHD,schizophrenia, mood disorder, anxiety and depression. Pt admits to auditory hallucinations starting in July going through November of this year and is able to state that he was having psychosis at that time but denies current problems with this. Pt states he has seen a psychiatrist and a [facility]. Pt is currently taking Strattera but states he does not take other prescribed meds from the psychiatrist. Substance Abuse: Pt denies alcohol. States he uses marijuana daily. SDOH: SDOH assessment completed with pt. SW provided pt with information on securing new housing and transportation information. [employer] and [employer] card also provided. Plan: Pt plans to return home at time of dc and denies any follow up needs. Pt does not have a ride home and states he may have to walk home. THIAGO educated pt to transportation from the hospital van. Pt's ebike is currently lock up at [place] on the bike rack and pt states he will need a ride to [place] to get his bike. ALISSON Chavis
[2024-04-18 12:40] LABS: HIV - WCH Non-Reactive (Nonreactive); Hepatitis B Surface Antibody Non-Reactive; Hepatitis B Surface Antigen Non-Reactive (Nonreactive); Hepatitis C Antibody Non-Reactive (Nonreactive); Syphilis Antibodies Non-reactive
--- NOTE | 2024-04-18 17:12 | PN.HOSP_ITS ---
Hospitalist Note Patient admitted early this morning for significant dehydration with ISABELLA secondary to COVID versus possible bacterial infection. Presented with s ignificant nausea, emesis and diarrhea. I saw patient in the ED later in the morning. His nausea and diarrhea were significantly improved and he was stating that he felt very hungry. Was breathing comfortably on room air at rest. Notably, his procalcitonin was very elevated, pointing to a bacterial infection of some kind. Unclear at this point where this infection may be located; intra-abdominal pathology is a possibility. Started IV Zosyn for this. Will trial patient on regular diet given that he states he is very hungry and see how he tolerates this. Will continue steroid treatment for now for COVID. Will have labs drawn tomorrow morning to reassess patient's leukocytosis and ISABELLA. Full progress note to follow tomorrow.
[2024-04-19 05:00] VITALS: BP 124/69; PULSE 98; RESP 18; TEMP 36.7; O2SAT 99
[2024-04-19] MEDS: Piperacil/Tazobactam 3.375 GM in 0.9% Normal Saline (50mL MB+) 50 ML IV (05:03)
[2024-04-19 05:06] LABS: Absolute Lymphocyte Count 2.83 X10^3/uL (0.83-4.51); Basophil# 0.04 X10^3/uL; Basophil% 0.3 % (0-1); Eosinophil# 0.05 X10^3/uL; Eosinophils% 0.4 % (0-5); Hematocrit 42.5 % (40-54); Hemoglobin 13.8 g/dL (13.0-16.5); Lymphocyte # 2.83 X10^3/ul (0.83-4.51); Lymphocyte % 22.9 % (19-41); Mean Corp Hgb Conc 32.5 g/dL (32-36); Mean Corpuscular Hgb 28.9 pg (27.0-32.0); Mean Corpuscular Volume 89.1 fL (80-94); Mean Platelet Vol. 10.4 fl (6.2-12.0); Monocyte# 1.43 X10^3/uL; Monocyte% 11.6 % (0-10); NRBC Flagged by Analyzer 0 % (0-5); Neutrophil # 7.97 X10^3/uL (2.7-7.7); Neutrophil % 64.4 % (47-70); Platelet Count 253 K/mm3 (150-450); RBC Distribution Width CV 13.2 % (11.6-14.6); RBC Distribution Width SD 43.4 fl (35.1-43.9); Red Blood Count 4.77 M/mm3 (4.6-6.2); White Blood Count 12.4 K/mm3 (4.4-11.0)
[2024-04-19 05:46] LABS: ALB/GLOB Ratio 1.2 RATIO (0.9-2.4); AST(SGOT) 64 U/L (15-37); Alanine Aminotransfer ALT/SGPT 51 U/L (16-61); Albumin, Serum 3.4 g/dL (3.2-5.0); Alkaline Phosphatase 56 U/L (45-117); Anion Gap 3 (5-15); BUN 25 mg/dL (7-18); BUN/Creat Ratio 21.6 RATIO (10-20); Calcium,Total 8.8 mg/dL (8.5-10.1); Chloride 108 mmol/L (98-107); Creatinine, Serum 1.16 mg/dL (0.70-1.30); EST Glomerular Filtration Rate 76 mL/min (>60); Est Glom Filt Rate - Afr Amer 92 mL/min (>60); Estimated Creatinine Clearance 94.67 ml/min; Globulin 2.8 g/dL (2.2-4.2); Glucose 100 mg/dL (74-106); Potassium 4.4 mmol/L (3.5-5.1); Protein, Total 6.2 g/dL (6.4-8.2); Sodium Level 138 mmol/L (136-145)
[2024-04-19 06:00] VITALS: BMI 24.2
[2024-04-19 07:11] VITALS: O2SAT 97
--- NOTE | 2024-04-19 08:00 | RAD_ITS ---
HISTORY: eval covid pneumonia. TECHNIQUE: XR Chest 1 View. COMPARISON: 12/13/2023. FINDINGS: CARDIOMEDIASTINAL BORDERS: Cardiac silhouette within normal limits in size. Mediastinal contour unremarkable. LUNGS: Radiographically clear. PLEURA: No pleural effusion or pneumothorax seen. OSSEOUS STRUCTURES: Unremarkable. RAD/Chest 1 View (Portable) IMPRESSION: No acute cardiopulmonary process identified. Electronically Signed: Daysi Ayoub MD at 8:39 EDT ,
[2024-04-19 09:45] VITALS: PULSE 88
[2024-04-19 09:50] VITALS: BP 128/72; PULSE 88; RESP 18; TEMP 36.1; O2SAT 98
[2024-04-19] MEDS: Heparin Injection (Vial) 5,000 UNIT/ML VIAL 5000 UNIT SC (09:56)
[2024-04-19] MEDS: dexAMETHasone 4 MG Tablet 6 MG PO (09:56)
--- NOTE | 2024-04-19 12:13 | PCM.DC ---
Discharge Instructions Diet Discharge Diet: No restrictions Activity Discharge Activity: No Restrictions Return to work on:: 04/21/24 Follow Up Care Test Results: Test results from this visit will be discussed in further detail at your follow-up appointment, if applicable. Discharge Plan Admission Admit Date/Time: 04/18/24 02:29 Primary Reason for Your Visit: Nausea, vomiting and diarrhea Attending Provider: Fili Valencia Primary Care Provider: Shania Vieira NP Consulting Providers: Lucero Vidal Instructions Additional Instructions / Restrictions: Please take 5 more days of the antibiotic note below to complete a 7-day course of antibiotics total. Follow-up with your primary care doctor as needed. Discharge Orders/Prescriptions Prescriptions: New amoxicillin-pot clavulanate 875-125 mg tablet 1 tab PO BID 5 Days Qty: 10 0RF Continued guanfacine 2 mg tablet 2 mg PO QHS Qty: 30 0RF atomoxetine [Strattera] 40 mg capsule 40 mg PO DAILY Referrals / Follow Up: Shania Vieira NP, [employer]LL[employer] MEAT SEPARATOR OPERATOR-C [Primary Care Provider] - Disposition Disposition (needs filled in before D/C Order can be placed): Home, Self Care
--- NOTE | 2024-04-19 12:15 | PCM.DC.SUM ---
Providers Date of Admission: 04/18/24 Date of Discharge: 04/19/24 Primary Care Physician: Shania Vieira, KERRYC Reason For Visit: COVID, ISABELLA, N/V/D/MILD COLITIS Diagnosis Discharge Diagnosis (1) COVID-19: Status: Acute Code(s): U07.1 - COVID-19 (2) ISABELLA (acute kidney injury): Status: Acute Code(s): N17.9 - Acute kidney failure, unspecified Medications at Discharge Home Medications guanfacine 2 mg tablet 2 mg PO QHS #30 tabs 12/21/23 atomoxetine 40 mg capsule (Strattera) 40 mg PO DAILY 04/18/24 amoxicillin 875 mg-potassium clavulanate 125 mg tablet 1 tab PO BID 5 days #10 tabs 04/19/24 Hospital Course Operations None Procedures EKG and - (Chest x-ray, CT abdomen pelvis) Summary of Care Provided Minutes Spent on Discharge: 35 Hospital Course: Patient is a 33-year-old male who presented [facility] ED on 04/18/2021 with nausea, vomiting and diarrhea. Short hospital course as noted below. Patient discharged home in stable condition on 04/19. 1. Mild sigmoid colitis ? Presented with fairly acute onset nausea/vomiting/diarrhea. CT abdomen pelvis showed thickening of distal colonic wall with mild colitis of the distal sigmoid colon. Was initially suspected this could be due to COVID but procalcitonin was very elevated. Treated with IV Zosyn while inpatient with good improvement, was tolerating regular diet on day of discharge and had no loose bowel movements during hospitalization. Stool sample was not able to be collected. Discharged on Augmentin to complete 7-day course of antibiotics total. 2. COVID-19 infection ? COVID-positive in the ED. Chest x-ray unremarkable. Breathing comfortably and satting well on room air during hospitalization. 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 3. ISABELLA, resolved ? Creatinine 2.87 on admission, baseline 1.0-1.2. Presumed prerenal etiology. Improved to 1.16 on hospital day 2 after IV fluid resuscitation, resolved. 4. Polysubstance abuse ? Reported history of methamphetamine, fentanyl and cannabis use. Patient reported cessation of drug use on admission. UDS positive for amphetamines, MDMA and cannabinoids, however patient is ADHD medication would cause positive for amphetamines and MDMA. Encouraged cessation of marijuana use. 5. History of anxiety/depression/ADHD/concern for schizophrenia ? Previously on hydroxyzine, lamotrigine, risperidone and trazodone but not able to confirm fills for any of these on admission. Recommend close outpatient follow-up with psychiatry on discharge. 6. Tobacco abuse ? Nicotine patch provided while inpatient per patient request. Encouraged cessation on discharge. Total clinical time spent by myself addressing the patient's medical issues, reviewing all the data, and collaborating with patient's care team: 35 minutes. Physical Exam Const alert, oriented x3, no apparent distress and average body habitus Constitutional Narrative: Pleasant younger male, mildly anxious appearing but otherwise sitting up comfortably in bed, conversing normally, in no acute distress. General Appearance: cooperative and comfortable HEENT normocephalic, head/scalp atraumatic, hearing grossly normal bilaterally, nasal mucous membranes and turbinates normal and moist oral mucous membranes Eyes PERRL, EOMs intact bilaterally and conjunctivae normal Neck full ROM Chest inspection of chest normal Resp normal respiratory effort, normal air movement, no use of accessory muscles and clear to auscultation bilaterally Cardio regular rate, regular rhythm, no murmurs and peripheral pulses 2+ throughout GI normal to inspection, nondistended, normoactive bowel sounds, soft to palpation, non-tender and non-distended Back/Spine normal ROM Extremity normal to inspection, full ROM and no pedal edema Skin no rashes or lesions noted Neuro no focal motor deficits and no sensory deficits noted Speech: speech normal Psych mental status grossly normal Weight / BMI Weight Weight: 78.471 kg Body Mass Index (BMI) 24.2 ABG / Lab / Microbiology Data 04/19/24 04:40 04/19/24 04:40 Laboratory: Laboratory Results - last 24 hr 04/18/24 08:27: Syphilis Total Ab Non-reactive, Hep Bs Antigen Non-Reactive, Hep Bs Antibody Non-Reactive, Hepatitis C Antibody Non-Reactive, HIV 1&2 Antibody Non-Reactive 04/19/24 04:40: WBC 12.4 H, RBC 4.77, Hgb 13.8, Hct 42.5, MCV 89.1, MCH 28.9, MCHC 32.5, RDW Std Deviation 43.4, RDW Coeff of [place] 13.2, Plt Count 253, MPV 10.4, Immature Gran % (Auto) 0.400, Neut % (Auto) 64.4, Lymph % (Auto) 22.9, [place] % (Auto) 11.6 H, Eos % (Auto) 0.4, Baso % (Auto) 0.3, Absolute Neuts (auto) 8.0 H, Absolute Lymphs (auto) 2.83, Nucleated RBC % 0, Sodium 138, Potassium 4.4, Chloride 108 H, Carbon Dioxide 27.0, Anion Gap 3 L, BUN 25 H, Creatinine 1.16, Estim Creat Clear Calc 94.67, Est GFR (MDRD) Af Amer 92, Est GFR (MDRD) Non-Af 76, BUN/Creatinine Ratio 21.6 H, Glucose 100, Calcium 8.8, Total Bilirubin 1.20 H, AST 64 H, ALT 51, Alkaline Phosphatase 56, Total Protein 6.2 L, Albumin 3.4, Globulin 2.8, Albumin/Globulin Ratio 1.2 Microbiology: Microbiology 04/18/24 16:20 Stool Enteric Bacteriology - Final 04/18/24 16:20 Stool Clostridioides difficile (PCR) - Final 04/18/24 00:35 Mucosa - Nose SARS-CoV-2, Influenza & RSV (PCR) - Final SARS-CoV-2 (COVID 19 PCR) Radiography Diagnostic Testing: Radiology Impression Chest X-Ray 04/19/24 08:00 IMPRESSION: No acute cardiopulmonary process identified. Electronically Signed: Daysi Ayoub MD at 8:39 EDT , D/C Instructions Discharge Diet: No restrictions Return to work on: 04/21/24 Meaningful Use Info Meaningful Use Meaningful Use Diagnoses (Choose all that apply): None applicable Ischemic Stroke Statin Dosing Therapy Reference: STATIN DOSE THERAPY REFERENCE: * Patients > 75 years receive moderate or high dose statin therapy. * Patients 75 years or YOUNGER should receive HIGH intensity statin dose unless contraindicated. You will be required to document reason for non-treatment if statin daily dose does not meet guidelines. HIGH DOSE STATIN THERAPY DAILY Atorvastatin > than or = to 40 mg Rosuvastatin > than or = to 20 mg Amlodipine + Atorvastatin > than or = to 2.5/40 mg Ezetimibe + Simvastatin 10/80 mg Simvastatin 80mg Discharge Plan Admission Admit Date/Time: 04/18/24 02:29 Primary Reason for Your Visit: Nausea, vomiting and diarrhea Attending Provider: Fili Valencia Primary Care Provider: Shania Vieira NP Consulting Providers: Lucero Vidal Instructions Additional Instructions / Restrictions: Please take 5 more days of the antibiotic note below to complete a 7-day course of antibiotics total. Follow-up with your primary care doctor as needed. Discharge Orders/Prescriptions Prescriptions: New amoxicillin-pot clavulanate 875-125 mg tablet 1 tab PO BID 5 Days Qty: 10 0RF Continued guanfacine 2 mg tablet 2 mg PO QHS Qty: 30 0RF atomoxetine [Strattera] 40 mg capsule 40 mg PO DAILY Referrals / Follow Up: Shania Vieira NP, [employer]OPELLANT CHARGE ZONE ASSEMBLER-C [Primary Care Provider] - Disposition Disposition (needs filled in before D/C Order can be placed): Home, Self Care Charges/Coding Visit Charges Inpatient E&M: 54624 Disch Hosp >30min
== END 2024-04-19 12:49 | disposition home or self-care (01) | DRG 249 ==
LOC: ED 04-18 02:55 → MS3 04-18 03:02
PROVIDERS: Admitting Provider Family Medicine; Emergency Provider Emergency Medicine; PCP Nurse Practitioner Family; Visit Provider Hospitalist
DX: K52.9 Noninfective gastroenteritis and colitis, unspecified (principal); U07.1 COVID-19; N17.9 Acute kidney failure, unspecified; F17.210 Nicotine dependence, cigarettes, uncomplicated; N18.2 Chronic kidney disease, stage 2 (mild); E80.7 Disorder of bilirubin metabolism, unspecified; F90.9 Attention-deficit hyperactivity disorder, unspecified type; Z79.899 Other long term (current) drug therapy; R03.0 Elevated blood-pressure reading, without diagnosis of hypertension
CPT/HCPCS: 36415; 71045; 74176; 80048; 80053; 80076; 80307; 82550; 82728; 83615; 83690; 83735; 83880; 84145; 85025; 85379; 86140; 86703; 86706; 86780; 86803; 87340; 87493; 87506; 87631; 94668; 99283; A4216; J0248; J2405

== ENCOUNTER 2025-01-07 08:41 | Emergency (ER) | payer MEDICAID, SELFPAY ==
[2025-01-07 08:42] VITALS: BP 108/97; PULSE 99; RESP 18; TEMP 36.1; O2SAT 97; BMI 27.1
--- NOTE | 2025-01-07 09:40 | EX.ED.UPPERE ---
HPI History of Present Illness HPI Narrative: 34-year-old male history of ADHD, schizophrenia and polysubstance abuse. Denies any IV drug abuse. States he was putting a rack on his electric bike yesterday and causing some mild laceration of his right index finger. Now it is painful and swollen. Chief Complaint: Laceration Informant: patient Occured/Mechanism Mechanism/Context: Yes injury Onset/Context/Timing Onset: Yesterday Context: Gradual Onset Timing: Continuous Quality of Pain: Sharp Current Severity: Moderate Maximum Severity: Moderate Narrative Narrative: 34-year-old male complaining of pain and swelling of right index finger. Patient states he injured it last night. On a drill bit. Today its painful and swollen. Prior similar symptoms: No Recent Illness/Hospitalization: No PFSH PFSH Medical History ADHD Schizophrenia Mood disorder Anxiety and depression CKD (chronic kidney disease), stage II Polysubstance abuse Tobacco use Home Medications ?Medication ?Instructions ?Recorded ?Last Taken ?Type guanfacine 2 mg tablet 2 mg PO QHS #30 tabs 12/21/23 Unknown Rx atomoxetine 40 mg capsule 40 mg PO DAILY 04/18/24 Unknown History (Strattera) amoxicillin 875 mg-potassium 1 tab PO BID 5 days #10 tabs 04/19/24 Unknown Rx clavulanate 125 mg tablet amoxicillin 875 mg-potassium 1 tab PO Q12H 10 days #20 tabs 01/07/25 Unknown Rx clavulanate 125 mg tablet Allergy/AdvReac Type Severity Reaction Status Date / Time No Known Allergies Allergy Verified 04/17/24 23:29 Family History Mother Kidney disease Father Cancer Surgical History History of dental surgery History of tonsillectomy and adenoidectomy Social History household members: other details: Lives with his uncle. Smoking Status: Current every day smoker tobacco type: cigarettes alcohol intake: never substance use type: former substance user Date of last use: Fentanyl, Methamphetamines per prior records. ROS ROS ED ROS Narrative Denies any recent illness. Denies any fever or chills. Constitutional Constitutional ED: Denies chills or fever(s) Eyes Eyes: Denies blurry vision ENT ENT ED: Denies ear pain Cardiovascular Cardiovascular: Denies chest pain Respiratory/Chest Respiratory/Chest: Denies cough or dyspnea Gastrointestinal Gastrointestinal: Denies abdominal pain Genitourinary Genitourinary ED: Denies dysuria or hematuria Musculoskeletal Musculoskeletal: Denies back pain or myalgias Integumentary Denies abscess or Abrasions Neurologic Neurologic: Denies headache(s) Psychiatric Psychiatric: Denies anxiety Endocrine Endocrinology: Denies cold intolerance Hematologic/Lymphatic Hematologic/Lymphatic: Denies easy bleeding, easy bruising or lymphadenopathy Allergic/Immunologic Allergic/Immunologic ED: Denies mouth swelling, tongue swelling or urticaria EXAM Physical Exam Narrative Exam Narrative: 34-year-old male vital signs stable afebrile. No acute distress. He is anxious. H EENT exam pupils round reactive light. Moist mucous membranes. Poor dentition. Neck nontender no lymphadenopathy. Lungs clear to auscultation. Heart regular rhythm rate about 95 no murmur. Chest wall ribs nontender. Abdomen soft nontender. Moving all 4 extremities. His right index finger there is some cracking of the skin along the nail. There is a very very superficial laceration on the medial aspect of his right PIP. There is no bleeding. It does not need repaired. The finger is swollen. Appears to be infected. There is no bony deformity or tenderness. He has normal flexion extension. There is no signs of tenosynovitis. There is no abscess. There is no lymphangitic streaking. The wrist, forearm, elbow and upper arm are unremarkable. There are no track rodriguez. Neurologically he is awake and alert. Const Vital Signs: 01/07/25 08:42 Temperature 97 F L Temperature Source Temporal Pulse Rate 99 Respiratory Rate 18 Blood Pressure 108/97 H Blood Pressure Mean 100 Pulse Ox 97 Oxygen Delivery Method Room Air Positive well developed and unkempt; Negative for cachectic or contractures General Appearance ED: unkempt, well developed and NAD; Negative for cachectic, contractures, cyanotic or diaphoretic Nutritional Appearance: Negative for cachectic HEENT Reports moist mucous membranes normocephalic and atraumatic Eyes PERRL and EOMs intact bilaterally Neck full ROM and supple Chest Wall inspection of chest normal and palpation of chest normal Resp normal respiratory effort and clear to auscultation bilaterally Cardio regular rate, regular rhythm, S1 normal heart sound, S2 normal heart sound and no murmurs Rate: Negative for bradycardia or tachycardic GI non-tender, non-distended and no masses Palpation: soft; Negative for tender or guarding Back/Spine no CVA tenderness General Back: Negative for CVA tenderness Cervical Spine: Negative for cervical spine tenderness Thoracic Spine / Upper Back: Negative for thoracic spinal tenderness Lumbar Spine / Lower Back: Negative for lumbar spinal tenderness Extremity full ROM; Negative for normal to inspection Extremity Narrative: Right index finger mildly swollen. Chronic cracking of the skin along the nail. Superficial tiny little laceration along the medial aspect of the PIP. He is able to flex extend the finger. Is neurovascularly intact. Appears to be early infection. No tenosynovitis. General Extremety ED: Yes edema General Extremity: edema Neuro oriented x3, CN's II-XII intact bilaterally, moves all extremities, no focal motor deficits and no sensory deficits noted Sensorium / Orientation: alert, oriented to person, oriented to place and oriented to time Motor Exam: strength 5/5 throughout Psych Negative for mental status grossly normal Appearance: unkempt Mood & Affect: anxious Skin Lesions: no lesions Rashes: no rashes Trauma: no lacerations or abrasions MDM MDM MDM Narrative Medical decision making narrative: 34-year-old male appears to have an infected right index finger. There is no tenosynovitis. I do not think it is related to the injury he talks about last night. There is no need for x-rays because the injury was a very minor laceration. That does not need repaired. There is chronic cracking of the skin distally I think that is the area of onset of a soft tissue infection of his index finger. There is no lymphangitic streaking. There is no tenosynovitis. There is no abscess. He will be started on Augmentin 875 twice daily for 10 days. Motrin and Tylenol and follow-up. First dose antibiotic will be given here. Prescription be sent to his pharmacy. History & Record Review Discussion w/independent historian: Patient Additional record(s) reviewed:: Prior inpatient record, Prior outpatient record, Prior ED visit and Prior labs Discharge Plan Triage Chief Complaint: Laceration ED Provider: Stephan Burk Dx/Rx/DC Orders Clinical Impression: Finger infection Instructions: ED Cellulitis Prescriptions: New amoxicillin-pot clavulanate 875-125 mg tablet 1 tab PO Q12H 10 Days Qty: 20 0RF No Action guanfacine 2 mg tablet 2 mg PO QHS Qty: 30 0RF atomoxetine [Strattera] 40 mg capsule 40 mg PO DAILY amoxicillin-pot clavulanate 875-125 mg tablet 1 tab PO BID 5 Days Qty: 10 0RF Primary Care Provider: Shania Vieira NP Referrals: Shania Vieira [employer]INE[employer], [employer]INE[employer] [Primary Care Provider] - 3-5 Days if not improving Activity Restrictions/Additional Instructions: Take the antibiotic Augmentin 1 pill twice a day till gone. Motrin for pain and swelling and Tylenol for pain. Ice and elevate. Follow-up or return if getting worse. Are not improving. Print Language: Korean Disposition Disposition: Home, Self Care
[2025-01-07] MEDS: Amox/Clavulanate 875 MG Tablet PO (09:55)
[2025-01-07 09:57] VITALS: BP 101/99; PULSE 90; RESP 16; TEMP 36.3; O2SAT 99
== END 2025-01-07 09:58 | disposition home or self-care (01) ==
PROVIDERS: Emergency Provider Emergency Medicine; PCP Nurse Practitioner Family; Visit Provider Emergency Medicine
DX: L08.9 Local infection of the skin and subcutaneous tissue, unspecified (principal); N18.2 Chronic kidney disease, stage 2 (mild); F17.210 Nicotine dependence, cigarettes, uncomplicated; Z79.899 Other long term (current) drug therapy; F90.9 Attention-deficit hyperactivity disorder, unspecified type
CPT/HCPCS: 99282

== ENCOUNTER 2025-01-21 16:05 | Inpatient (IN) | payer MEDICAID, SELFPAY ==
[2025-01-21 16:05] VITALS: BP 140/83; PULSE 134; RESP 18; TEMP 36.4; O2SAT 98; BMI 27.0
[2025-01-21 18:05] VITALS: BP 136/88; PULSE 99; RESP 18; O2SAT 95
--- NOTE | 2025-01-21 19:14 | ED.VIS.GI ---
HPI HPI - GI History of Present Illness Chief Complaint: Abd Pain Informant: patient Narrative Narrative: Patient is a 34-year-old male with history of schizophrenia, CKD 2, ADHD and polysubstance abuse presenting with lower abdominal pain. Patient states he got a new e-bike is riding his bike a lot. He does know if he has been overdoing it in the heat and also has been having abdominal pain. Is also not sure if he may be pulled something. 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 For the past few days has been having pain mostly in his left lower quadrant but it radiates to his periumbilical area as well. He denies associated nausea or vomiting. States that he usually does not drink much water and will mostly either drink tea or pop. He has been trying to drink water today. He states he has been urinating but his urine is been a lot darker. Is having associated abdominal cramping. Denies any fevers. Denies associated chest pain or shortness of breath. Denies any leg swelling. States at times the pain in his abdomen does radiate to his groin but he does not have any specific testicular pain. States he did have something similar to this in the past which was associated with COVID. He does report that he has been mildly constipated. Feels that he might need to have a bowel movement today. PFSH PFSH Medical History ADHD Schizophrenia Mood disorder Anxiety and depression CKD (chronic kidney disease), stage II Polysubstance abuse Tobacco use Home Medications ?Medication ?Instructions ?Recorded ?Last Taken ?Type NK 01/21/25 Unknown History Allergy/AdvReac Type Severity Reaction Status Date / Time No Known Allergies Allergy Verified 01/21/25 16:10 Family History Mother Kidney disease Father Cancer Surgical History History of dental surgery History of tonsillectomy and adenoidectomy Social History household members: other details: Lives with his uncle. Smoking Status: Current every day smoker tobacco type: cigarettes alcohol intake: never substance use type: former substance user Date of last use: Fentanyl, Methamphetamines per prior records. ROS ROS ED Constitutional Constitutional ED: Denies chills or fever(s) Cardiovascular Cardiovascular: Denies chest pain Respiratory/Chest Respiratory/Chest: Denies cough or dyspnea Gastrointestinal Gastrointestinal: Reports abdominal pain and constipation; Denies vomiting Genitourinary Genitourinary ED: Reports dysuria; Denies hematuria Musculoskeletal Musculoskeletal: Reports myalgias; Denies arthralgias Integumentary Denies rash Neurologic Neurologic: Denies weakness EXAM Physical Exam Const Vital Signs: 01/21/25 16:05 01/21/25 18:05 01/21/25 20:00 Temperature 97.5 F L Temperature Source Temporal Pulse Rate 134 H 99 74 Respiratory Rate 18 18 18 Respiratory Effort Respiratory Depth Respiratory Pattern Blood Pressure 140/83 H 136/88 H 136/76 H Blood Pressure Mean 102 104 96 Blood Pressure Source Blood Pressure Position Blood Pressure Location Pulse Ox 98 95 99 Oxygen Delivery Method Room Air Room Air 01/21/25 21:53 01/21/25 21:53 01/21/25 23:03 Temperature 100 F H 100 F H 98.1 F Temperature Source Oral Temporal Pulse Rate 118 H 118 H 112 H Respiratory Rate 18 18 16 Respiratory Effort Respiratory Depth Respiratory Pattern Blood Pressure 130/83 H 130/83 H 111/70 Blood Pressure Mean 98 98 83 Blood Pressure Source Monitor Blood Pressure Position Semi-Fowlers Blood Pressure Location Left Forearm Pulse Ox 100 100 100 Oxygen Delivery Method Room Air Room Air 01/21/25 23:19 Temperature Temperature Source Pulse Rate Respiratory Rate Respiratory Effort Normal Non-Labored Respiratory Depth Normal Respiratory Pattern Normal Blood Pressure Blood Pressure Mean Blood Pressure Source Blood Pressure Position Blood Pressure Location Pulse Ox Oxygen Delivery Method Room Air MDM MDM MDM Narrative Medical decision making narrative: Patient evaluated for cramps, worsening left lower quadrant abdominal pain. He is initially quite tachycardic on arrival but does improve with IV fluids in the emergency room. He has significant pain in his left lower quadrant. Differential includes abdominal wall trauma, rhabdomyolysis, renal colic, diverticulitis, pyelonephritis. He has a leukocytosis white blood cell count of 17.8. CMP shows a mild elevation of his creatinine 1.22 but this appears to be near his baseline. CPK is normal. Urinalysis is not excess with infection. CT the abdomen pelvis shows acute sigmoid colonic diverticulitis with perforation surrounding inflammation and fluid. No abscess appreciated. Case discussed with general surgery, Dr. Bruno, who recommends IV Rocephin and Flagyl. Will admit to his service. Patient is agreeable with this plan of care. Patient is she was given Tylenol in the emergency room but then is given further pain medication while in the emergency room Lab Data Attestation: I reviewed the patient's lab results. Labs: Laboratory Results - last 24 hr 01/21/25 19:10 WBC 17.8 H RBC 4.82 Hgb 14.5 Hct 42.2 MCV 87.6 MCH 30.1 MCHC 34.4 RDW Std Deviation 39.0 RDW Coeff of Thomas 12.1 Plt Count 193 MPV 10.6 Immature Gran % (Auto) 0.700 Neut % (Auto) 80.6 H Lymph % (Auto) 9.1 L [place] % (Auto) 9.0 Eos % (Auto) 0.3 Baso % (Auto) 0.3 Absolute Neuts (auto) 14.4 H Absolute Lymphs (auto) 1.62 Nucleated RBC % 0 Platelet Estimate ADEQUATE Sodium 133 Potassium 4.1 Chloride 97 L Carbon Dioxide 24.9 Anion Gap 11 BUN 10 Creatinine 1.22 H Estim Creat Clear Calc 83.71 Est GFR (MDRD) Non-Af 79 BUN/Creatinine Ratio 7.9 L Glucose 104 H Calcium 9.2 Magnesium 2.2 Total Bilirubin 1.40 H AST 13 ALT 13 Alkaline Phosphatase 79 Total Creatine Kinase 82 Total Protein 7.1 Albumin 3.8 Globulin 3.3 Albumin/Globulin Ratio 1.2 Urine Color Yellow Urine Clarity Cloudy Urine pH 6.0 Ur Specific [place] 1.020 Urine Protein 30 H Urine Glucose (UA) Normal Urine Ketones 5 H Urine Occult Blood 10 H Urine Nitrite Negative Urine Bilirubin Negative Urine Urobilinogen 1 H Ur Leukocyte Esterase Negative Urine RBC 0-5 SEEN Urine WBC 0-5 SEEN Ur Squamous Epith Cells 0-5 SEEN Urine Bacteria 0 SEEN Urine Mucus 0 SEEN Radiography Diagnostic Testing: Clinical Impression(s) from Imaging Studies Abdomen/Pelvis CT 01/21/25 19:42 IMPRESSION: Acute sigmoid colon diverticulitis with perforation and extensive surrounding inflammation and fluid. Free air from perforation is noted best seen on series 2, image 106. No formed abscess at this time. No bowel obstruction. Thickened urinary bladder wall likely reactive. No fistulization is noted at this time. Dr. Quinn was notified by Minh Damico at 9:25 pm EST on 01/21/2025. Reading Location: [facility] Rhythm Strip Rhythm Strip: Sinus Tach Rate: 119 Ectopy: None EKG Initial EKG: Attestation: I personally reviewed and interpreted this EKG as follows: Interpretation: Sinus Tachycardia Comments: Sinus tachycardia at a rate of 119 bpm Right axis deviation Normal intervals Normal ST segments Compared to prior EKG patient is not tachycardic Management Discussion w/another healthcare provider: [employer] Discharge Plan Dx/Rx/DC Orders Clinical Impression: Diverticulitis of colon with perforation, Tachycardia, Leukocytosis Disposition Disposition: Acute Care Hospital [facility] Discharge Date/Time: 01/21/25 22:46
[2025-01-21 19:17] LABS: Bacteria 0 SEEN /hpf (None Seen); Mucous, Urine 0 SEEN /hpf (<or=2+)
[2025-01-21] MEDS: 0.9% Normal Saline (1000mL) 1,000 ML 1000 ML IV (19:18)
[2025-01-21 19:20] LABS: Absolute Lymphocyte Count 1.62 X10^3/uL (0.83-4.51); Absolute Neutrophil Count 14.4 X10^3/uL (2.0-7.7); Basophil# 0.06 X10^3/uL; Basophil% 0.3 % (0-1); Eosinophil# 0.05 X10^3/uL; Eosinophils% 0.3 % (0-5); Hematocrit 42.2 % (40-54); Hemoglobin 14.5 g/dL (13.0-16.5); Lymphocyte # 1.62 X10^3/ul (0.83-4.51); Lymphocyte % 9.1 % (19-41); Mean Corp Hgb Conc 34.4 g/dL (32-36); Mean Corpuscular Hgb 30.1 pg (27.0-32.0); Mean Corpuscular Volume 87.6 fL (80-94); Mean Platelet Vol. 10.6 fl (6.2-12.0); NRBC Flagged by Analyzer 0 % (0-5); Neutrophil # 14.37 X10^3/uL (2.7-7.7); Neutrophil % 80.6 % (47-70); POSITIVE DIFFERENTIAL YES; Platelet Count 193 K/mm3 (150-450); RBC Distribution Width CV 12.1 % (11.6-14.6); Red Blood Count 4.82 M/mm3 (4.6-6.2); White Blood Count 17.8 K/mm3 (4.4-11.0)
[2025-01-21 19:27] LABS: Color, Urine Yellow (Yellow); Glucose, Dipstick Normal (Normal); Ketone-Dipstick 5 mg/dl (Negative); Leukocyte Esterase-Dipstick Negative /ul (Negative); Nitrite-Dipstick Negative (Negative); Occult Blood-Urine 10 /ul (Negative); Protein-Dipstick 30 mg/dl (Negative); Urine Bilirubin Dipstick Negative (Negative); Urine Clarity Cloudy (Clear); Urine Urobilinogen 1 mg/dl (Normal)
[2025-01-21 19:32] LABS: Differential Indicated SCAN CRITERIA MET
--- NOTE | 2025-01-21 19:42 | CT_ITS ---
PROCEDURE: ABDOMEN/PELVIS W IV CONT ONLY 01/21/2025 REASON FOR EXAM: LLQ ABD PAIN TECHNIQUE: ABDOMEN/PELVIS W IV CONT ONLY Coronal and Sagittal reconstruction series were provided. CONTRAST: 100 mL of Isovue 370 One or more dose reduction techniques were used (e.g., Automated exposure control, adjustment of the mA and/or kV according to patient size, use of iterative reconstruction technique. RADIATION DOSE SUMMARY: DLP: 967 mGycm COMPARISON: Prior CT from 03/2024 FINDINGS: Limited sections of the lung bases demonstrate no focal pulmonary mass or consolidations. The liver, spleen, pancreas, and both adrenal glands demonstrate no acute findings. Hepatomegaly to 21 cm. The gallbladder is unremarkable. The stomach is unremarkable. The small bowel loops are not dilated. The appendix is normal. Acute sigmoid colon diverticulitis with perforation and extensive surrounding inflammation and fluid. Free air from perforation is noted best seen on series 2, image 106. No formed abscess at this time. No bowel obstruction. The kidneys are unremarkable. Thickened urinary bladder wall likely reactive. No fistulization is noted at this time. The pelvic structures are intact. There is no solid pelvic mass. No significant lymphadenopathy. Prominent para-aortic lymph nodes The aorta and IVC demonstrate no acute findings. Visualized osseous structures demonstrate no acute abnormality. CT/Abdomen/Pelvis W IV Cont ONLY IMPRESSION: Acute sigmoid colon diverticulitis with perforation and extensive surrounding i nflammation and fluid. Free air from perforation is noted best seen on series 2, image 106. No formed abscess at this time. No bowel obstruction. Thickened urinary bladder wall likely reactive. No fistulization is noted at t his time. Dr. Quinn was notified by Minh Damico at 9:25 pm EST on 01/21/2025. Reading Location: [facility]
[2025-01-21 19:54] LABS: ALB/GLOB Ratio 1.2 RATIO (0.9-2.4); Albumin, Serum 3.8 g/dL (3.5-5.0); BUN 10 mg/dL (4-19); BUN/Creat Ratio 7.9 RATIO (10-20); Calcium,Total 9.2 mg/dL (7.6-11.0); Creatinine, Serum 1.22 mg/dL (0.70-1.20); EST Glomerular Filtration Rate 79 (>60); Estimated Creatinine Clearance 83.71 ml/min (50-250); Globulin 3.3 g/dL (2.2-4.2); Glucose 104 mg/dL (70-99); Protein, Total 7.1 g/dL (5.9-8.4)
[2025-01-21 19:55] LABS: AST(SGOT) 13 U/L (<=37); Alanine Aminotransfer ALT/SGPT 13 U/L (<=46); Alkaline Phosphatase 79 U/L (40-129); Anion Gap 11 (5-15); CPK Total, Creatine Kinase 82 U/L (24-195); Carbon Dioxide 24.9 mmol/L (21.0-32.0); Chloride 97 mmol/L (98-108); Magnesium 2.2 mg/dL (1.5-2.2); Potassium 4.1 mmol/L (3.3-5.1); Sodium Level 133 mmol/L (133-145)
[2025-01-21 20:00] VITALS: BP 136/76; PULSE 74; RESP 18; O2SAT 99
[2025-01-21 20:20] LABS: Red Blood Cells-Urine 0-5 SEEN /hpf (0-5); Squamous Epithelial Cells - UA 0-5 SEEN /hpf (0-5); White Blood Cells 0-5 SEEN /hpf (0-5)
[2025-01-21 20:43] LABS: Platelet Estimate ADEQUATE (ADEQ)
[2025-01-21] MEDS: Ketorolac 15 MG/ML Vial IV (21:50)
[2025-01-21] MEDS: Morphine 4 MG/ML Syringe IV (21:50)
[2025-01-21 21:53] VITALS: BP 130/83; PULSE 118; RESP 18; TEMP 37.7; O2SAT 100
[2025-01-21] MEDS: Ceftriaxone 1 GM/50 ML BAG IV (22:03)
[2025-01-21] MEDS: metroNIDAZOLE 500 MG/100 ML BAG 100 MG IV (22:50)
[2025-01-21 22:58] VITALS: BMI 26.2
--- OUTSIDE RECORDS SUMMARY | 2025-01-21 22:58 | XMS RPT_ITS | CCD ---
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 GFR Calc Performed By: #### L 100.0100, L500.4050 ####[facility] [address] [place], [address] GAP 3 Low 5-15 [facility] Comment on above: Performed By: #### L 100.0100, L500.4050 ####[facility] [address] [place], [address] GFR/1.73 sq M.predicted among non-blacks MDRD (S/P/Bld) [Vol rate/Area] 76 mL/min/{1.73_m2} Normal >60 [facility] Comment on above: Result Comment: Non- GFR Calc Performed By: #### L 100.0100, L500.4050 ####[facility] [address] [place], [address] Globulin (S) [Mass/Vol] 2.8 g/dL Normal 2.2-4.2 [facility] Comment on above: Performed By: #### L 100.0100, L500.4050 ####[facility] [address] [place], [address] Glucose [Mass/Vol] 100 mg/dL Normal 74-106 [facility] Comment on above: Result Comment: Fast ing Glucose result from 100 to 125 mg/dL suggests IMPAIRED HOMEOSTASIS per A.D.A. criteria. Performed By: #### L 100.0100, L500.4050 ####[facility] [address] [place], [address] Potassium [Moles/Vol] 4.4 mmol/L Normal 3.5-5.1 [facility] Comment on above: Performed By: #### L 100.0100, L500.4050 ####[facility] [address] [place], [address] Sodium [Moles/Vol] 138 mmol/L Normal 136-145 [facility] Comment on above: Performed By: #### L 100.0100, L500.4050 ####[facility] [address] [place], [address] T PROT 6.2 g/dL Low 6.4-8.2 [facility] Comment on above: Performed By: #### L 100.0100, L500.4050 ####[facility] [address] [place], [address] Urea nitrogen [Mass/Vol] 25 mg/dL High 7-18 [facility] Comment on above: Performed By: #### L 100.0100, L500.4050 ####[facility] [address] [place], [address] Discharge Instructionon 03-31 Discharge Instruction [facility] Medical Records Department [address] [place] [address] Instructions for Home/Discharge Instructions 04/19/24 1213 MR#: [id number] Acct: [id number] Name: GABRIELA VIDAL Rep #: [id number] : 1990 33 From: Fili Valencia DO PCP: ELOISA Braden Status:ADM IN Discharge Instructions Diet Discharge Diet: No restrictions Activity Discharge Activity: No Restrictions Return to work on:: 04/21/24 Follow Up Care Test Results: Test results from this visit will be discussed in further detail at your follow-up appointment, if applicable. Discharge Plan Admission Admit Date/Time: 04/18/24 02:29 Primary Reason for Your Visit: Nausea, vomiting and diarrhea Attending Provider: Fili Valencia Primary Care Provider: Shania Vieira NP Consulting Providers: Lucero Vidal Instructions Additional Instructions / Restrictions: Please take 5 more days of the antibiotic note below to complete a 7-day course of antibiotics total. Follow-up with your primary care doctor as needed. Discharge Orders/Prescriptions Prescriptions: New amoxicillin-pot clavulanate 875-125 mg tablet 1 tab PO BID 5 Days Qty: 10 0RF Continued guanfacine 2 mg tablet 2 mg PO QHS Qty: 30 0RF atomoxetine [Strattera] 40 mg capsule 40 mg PO DAILY Referrals / Follow Up: Shania Vieira NP, [facility] [Primary Care Provider] - Disposition Disposition (needs filled in before D/C Order can be placed): Home, Self Care 04/19/24 1215 Fili Valencia DO CC: [facility] Shania Vieira; Dr. Lucero Vidal MD Signed Normal [facility] ENTERIC PATHOGEN PANEL STOOL on 04-19-2024 EP PANEL Is the patient receiving laxatives? N New/unexplained onset of 3 or more stools in past 24 hrs? Y Normal Reference Range = Not Detected GI pathogens Pnl Stl CARLOS+probe Nucleic acid amplification test method GI pathogens Pnl Stl CARLOS+probe Not detected for Campylobacter group, Salmonella species, Shigella species, Vibrio Group, Yersinia enterocolitica, EHEC (Shiga Toxin 1, Shiga Toxin 2), Norovirus Gl/Gll, and Rotavirus A. Other common stool pathogens are not detected on this panel include: Aeromonas/Plesiomonas or parasites. Order testing for these organisms separately if suspected. This is an amplified DNA test which makes it both specific and sensitive. CAMPYLOBACTER Not Detected Norovirus Not Detected Rotavirus Not Detected Salmonella Not Detected Shiga Toxin Not Detected Shigella sp. Not Detected VIBRIO Not Detected Yersinia Not Detected Normal [facility] Comment on above: Performed By: #### M 100.637, M100.6796 #### [facility] [address] [place], [address] Abdomen/Pelvis without Conto n 04-18-2024 Abdomen/Pelvis without Cont [facility] [address] [place], [place] [address] Abdomen/Pelvis without Cont MR#: [id number] Acct: [id number] Name: GABRIELA VIDAL JrJohn Rep #: [id number] : 1990 M 33 From: Dayton salcedo MD PCP: ELOSIA Braden Status: REG ER Study: Abdomen/Pelvis without Cont Date of Exam: 03/31 Exam# [id number] Ordering Dr: [place] [id number] EXAM: CT ABDOMEN AND PELVIS WITHOUT INTRAVENOUS CONTRAST CLINICAL INDICATION: PAIN TECHNIQUE: Helically acquired images were obtained of the abdomen and pelvis without intravenous contrast. This CT exam was performed using one or more of the following dose reduction techniques: automated exposure control, adjustment of the mA and/or kV according to patient size, and/or use of iterative reconstruction technique. RADIATION DOSE: Total DLP: 360.48 mGy-cm. COMPARISON: No relevant prior studies available. FINDINGS: LOWER THORAX: Isolated focus of subpleural bronchiectasis within the posterior aspect of the right lower lobe; the most distal portion of this dilated bronchus is opacified by secretions or mucous plugging. No acute basilar pulmonary infiltrates or pleural effusions are identified. No coronary artery calcification. No significant pericardial effusion. ABDOMEN: LIVER: Unremarkable. Homogeneous. GALLBLADDER AND BILE DUCTS: Unremarkable. No calcified gallstones. No gallbladder distention or wall edema. No intra- or extrahepatic biliary ductal dilation. PANCREAS: Unremarkable. No focal cystic mass. SPLEEN: Unremarkable. Normal size without focal cystic or solid mass. ADRENALS: Unremarkable. No nodules. KIDNEYS AND URETERS: Unremarkable. Normal renal size and position. No renal or obstructing ureteral stones. No perirenal stranding or hydronephrosis. STOMACH AND BOWEL: No gastric mural thickening, periduodenal inflammatory changes or distended small bowel loops. The descending and rectosigmoid colon are decompressed/empty. The wall of the distal sigmoid colon is thicker/more prominent in the proximal sigmoid wall, raising the possibility of a mild colitis, in the appropriate clinical setting. No findings of diverticulitis or small bowel obstruction. No pneumatosis or additional air. PELVIS: APPENDIX: Normal appendix. No CT findings of acute appendicitis. BLADDER: Unremarkable. REPRODUCTIVE: Unremarkable as visualized. No mass. ABDOMEN and PELVIS: INTRAPERITONEAL SPACE: Unremarkable. No ascites or other fluid collection. No free air. BONES/JOINTS: No acute osseous abnormality. Sacralization of L5 is present. No suspicious lytic or blastic abnormality. SOFT TISSUES: A small fat-filled umbilical hernia is incidentally noted. VASCULATURE: Unremarkable. Abdominal aorta is non-dilated. LYMPH NODES: A few small pericecal lymph nodes are present but these do not fulfill the size criteria for mesenteric adenitis. No adenopathy. CT/Abdomen/Pelvis without Cont IMPRESSION: 1. Thickening of the distal colonic wall, primarily due to lack of distention but a mild colitis of the distal sigmoid colon may also be present, and clinical correlation is suggested. 2. Normal appendix. 3. No findings of small bowel obstruction or obstructive uropathy. Electronically Signed: Dayton Hanna MD at 2:22 EDT , CC: ELOISA Vieira; Esteban Medel DO [employer] Technician: Signed Normal [facility] BNP,B-Type NATRIURETIC PEPTI Cornelia 04-18-2024 Natriuretic peptide B (Bld) [Mass/Vol] 14.3 pg/mL Normal 0-100 [facility] Comment on above: Performed By: #### M 100.637, M100.6796 #### [facility] [address] [place], [address] Basic Metabolic Profile (BMP )on 04-18-2024 BUN/CRE 10.8 RATIO Normal 10-20 [facility] Comment on above: Performed By: #### L 100.0100, L501.2450, L500.2500, L500.3400, L501.5200 #### [facility] [address] [place], [address] CA,Total 10.2 mg/dL High 8.5-10.1 [facility] Comment on above: Performed By: #### L 100.0100, L501.2450, L500.2500, L500.3400, L501.5200 #### [facility] [address] [place], [address] Chloride [Moles/Vol] 101 mmol/L Normal 98-107 [facility] Comment on above: Performed By: #### L 100.0100, L501.2450, L500.2500, L500.3400, L501.5200 #### [facility] [address] [place], [address] CO2 [Moles/Vol] 20.0 mmol/L Low 21.0-32.0 [facility] Comment on above: Performed By: #### L 100.0100, L501.2450, L500.2500, L500.3400, L501.5200 #### [facility] [address] [place], [address] Creatinine [Mass/Vol] 2.87 mg/dL High 0.70-1.30 [facility] Comment on above: Result Comment: The validity of the calculated GFR GFRAA in patients over 70 years has not been determined. Clinical correlation is essential. Performed By: #### L 100.0100, L501.2450, L500.2500, L500.3400, L501.5200 #### [facility] [address] [place], [address] ECRCL 38.26 ml/min Normal [facility] Comment on above: Performed By: #### L 100.0100, L501.2450, L500.2500, L500.3400, L501.5200 #### [facility] [address] [place], [address] EST GFR - AA 32 mL/min Low >60 [facility] Comment on above: Result Comment: Afri can Moroccan GFR Calc Performed By: #### L 100.0100, L501.2450, L500.2500, L500.3400, L501.5200 #### [facility] [address] [place], [address] GAP 16 High 5-15 [facility] Comment on above: Performed By: #### L 100.0100, L501.2450, L500.2500, L500.3400, L501.5200 #### [facility] [address] [place], [address] GFR/1.73 sq M.predicted among non-blacks MDRD (S/P/Bld) [Vol rate/Area] 27 mL/min/{1.73_m2} Low >60 [facility] Comment on above: Result Comment: Non- GFR Calc Performed By: #### L 100.0100, L501.2450, L500.2500, L500.3400, L501.5200 #### [facility] [address] [place], [address] Glucose [Mass/Vol] 125 mg/dL High 74-106 [facility] Comment on above: Result Comment: Fast ing Glucose result from 100 to 125 mg/dL suggests IMPAIRED HOMEOSTASIS per A.D.A. criteria. Performed By: #### L 100.0100, L501.2450, L500.2500, L500.3400, L501.5200 #### [facility] [address] [place], [address] Potassium [Moles/Vol] 4.5 mmol/L Normal 3.5-5.1 [facility] Comment on above: Performed By: #### L 100.0100, L501.2450, L500.2500, L500.3400, L501.5200 #### [facility] [address] [place], [address] Sodium [Moles/Vol] 137 mmol/L Normal 136-145 [facility] Comment on above: Performed By: #### L 100.0100, L501.2450, L500.2500, L500.3400, L501.5200 #### [facility] [address] [place], [address] Urea nitrogen [Mass/Vol] 31 mg/dL High 7-18 [facility] Comment on above: Performed By: #### L 100.0100, L501.2450, L500.2500, L500.3400, L501.5200 #### [facility] [address] [place], [address] CBC W/Diff, Automatedon 09-2 0-2023 Absolute Lymph 1.05 X10 3/uL Normal 0.83-4.51 [facility] Comment on above: Performed By: #### M 100.637, M100.6796 #### [facility] [address] [place], [address] Absolute Neut 15.1 X10 3/uL High 2.0-7.7 [facility] Comment on above: Performed By: #### M 100.637, M100.96 #### [facility] [address] [place], [address] Basophils/100 WBC (Bld) 0.1 % Normal 0-1 [facility] Comment on above: Performed By: #### M 100.637, M1.96 #### [facility] [address] [place], [address] Eosinophils/100 WBC (Bld) 0.0 % Normal 0-5 [facility] Comment on above: Performed By: #### M 100.637, M1.96 #### [facility] [address] [place], [address] Erythrocyte distribution width (RBC) [Ratio] 13.3 % Normal 11.6-14.6 [facility] Comment on above: Performed By: #### M 100.637, M1.96 #### [facility] [address] [place], [address] Hematocrit (Bld) [Volume fraction] 43.8 % Normal 40-54 [facility] Comment on above: Performed By: #### M 100.637, M1.96 #### [facility] [address] [place], [address] Hemoglobin (Bld) [Mass/Vol] 14.8 g/dL Normal 13.0-16.5 [facility] Comment on above: Performed By: #### M 100.637, M1.96 #### [facility] [address] [place], [address] IG% 0.400 Normal 0.0-0.9 [facility] Comment on above: Result Comment: IG% - Immature Granulocytes (promyelocytes, myelocytes and metamyelocytes) > 1% indicates that a LEFT SHIFT is Present. Performed By: #### M 100.637, M1.96 #### [facility] [address] [place], [address] Lymphocytes/100 WBC (Bld) 6.3 % Low 19-41 [facility] Comment on above: Performed By: #### M 100.637, M196 #### [facility] [address] [place], [address] MCH (RBC) [Entitic mass] 29.5 pg Normal 27.0-32.0 [facility] Comment on above: Performed By: #### M 100.637, 96 #### [facility] [address] [place], [address] MCHC (RBC) [Mass/Vol] 33.8 g/dL Normal 32-36 [facility] Comment on above: Performed By: #### M 100.637, 96 #### [facility] [address] [place], [address] MCV (RBC) [Entitic vol] 87.3 fL Normal 80-94 [facility] Comment on above: Performed By: #### M 100.637, 96 #### [facility] [address] [place], [address] Monocytes/100 WBC (Bld) 2.0 % Normal 0-10 [facility] Comment on above: Performed By: #### M 100.637, 96 #### [facility] [address] [place], [address] Neutrophils/100 WBC (Bld) 91.2 % High 47-70 [facility] Comment on above: Performed By: #### M 100.637, M196 #### [facility] [address] [place], [address] Nucleated RBC (Bld) [#/Vol] 0 10*3/uL Normal 0-5 [facility] Comment on above: Performed By: #### M 100.637, M1.96 #### [facility] [address] [place], [address] Platelet mean volume (Bld) [Entitic vol] 10.2 fL Normal 6.2-12.0 [facility] Comment on above: Performed By: #### M 100.637, .96 #### [facility] [address] [place], [address] Platelets (Bld) [#/Vol] 269 10*3/uL Normal 150-450 [facility] Comment on above: Performed By: #### M 100.637, 96 #### [facility] [address] [place], [address] RBC (Bld) [#/Vol] 5.02 10*6/uL Normal 4.6-6.2 [facility] Comment on above: Performed By: #### M 100.637, .96 #### [facility] [address] [place], [address] RDW SD 42.8 fl Normal 35.1-43.9 [facility] Comment on above: Performed By: #### M 100.637, .96 #### [facility] [address] [place], [address] WBC (Bld) [#/Vol] 16.6 10*3/uL High 4.4-11.0 [facility] Comment on above: Performed By: #### M 100.637, M196 #### [facility] [address] [place], [address] SMEAR COMMENT SCANNED Normal [facility] Comment on above: Result Comment: NEUT ROPHILLIA PRESENT Performed By: #### L 100.0100, L501.2450, L500.2500, L500.3400, L501.5200 #### [facility] [address] [place], [address] CDIFF (PCR)on 04-18-2024 CDIFF Is the patient receiving laxatives? N New/unexplained onset of 3 or more stools in past 24 hrs? Y Pending 027 027 NAP1-B1 Presumptive Negative *for epidemiolologic???use C. Diff PCR Negative- No toxigenic C. Diff Detected Normal [facility] Comment on above: Performed By: #### M 100.637, M100.6796 #### [facility] [address] [place], [address] CPK Total, Creatine Kinaseon 04-18-2024 CPK TOTAL 790 U/L High 39-308 [facility] Comment on above: Order Comment: Comme nts: add to ED labs Performed By: #### L 501.3620 #### [facility] [address] [place], [address] CRPon 04-18-2024 C-REACTIVE PROT 2.95 mg/L Normal 0.0-3.0 [facility] Comment on above: Order Comment: Comme nts: May add to ED labsmay add to ED labs Result Comment: C-Re active Protein (CRP) provides useful information for the diagnosis, therapy and monitoring of inflammatory processes and associated diseases. For the evaluation of Relative Risk for Cardiovascular Disease, a High Sensitivity CRP (HSCRP) should be ordered. Performed By: #### M 100.637, M100.6796 #### [facility] [address] [place], [address] Comprehensive Metabolic Prof ilon 04-18-2024 Albumin [Mass/Vol] 3.8 g/dL Normal 3.2-5.0 [facility] Comment on above: Performed By: #### M 100.637, M100.6796 #### [facility] [address] [place], [address] Albumin/Globulin [Mass ratio] 1.2 {ratio} Normal 0.9-2.4 [facility] Comment on above: Performed By: #### M 100.637, M1.96 #### [facility] [address] [place], [address] ALK P 72 U/L Normal 45-117 [facility] Comment on above: Performed By: #### M 100.637, .96 #### [facility] [address] [place], [address] ALT [Catalytic activity/Vol] 51 U/L Normal 16-61 [facility] Comment on above: Performed By: #### M 100.637, .96 #### [facility] [address] [place], [address] AST [Catalytic activity/Vol] 62 U/L High 15-37 [facility] Comment on above: Performed By: #### M 100.637, M1.96 #### [facility] [address] [place], [address] Bilirubin [Mass/Vol] 1.00 mg/dL Normal 0.20-1.00 [facility] Comment on above: Result Comment: For patients on eltrombopag therapy, use of [facility] TBIL is not recommended. Performed By: #### M 100.637, M1.96 #### [facility] [address] [place], [address] BUN/CRE 14.6 RATIO Normal 10-20 [facility] Comment on above: Performed By: #### M 100.637, M1.96 #### [facility] [address] [place], [address] CA,Total 8.9 mg/dL Normal 8.5-10.1 [facility] Comment on above: Performed By: #### M 100.637, M100.6796 #### [facility] [address] [place], [address] Chloride [Moles/Vol] 109 mmol/L High 98-107 [facility] Comment on above: Performed By: #### M 100.637, M100.6796 #### [facility] [address] [place], [address] CO2 [Moles/Vol] 20.0 mmol/L Low 21.0-32.0 [facility] Comment on above: Performed By: #### M 100.637, M1.96 #### [facility] [address] [place], [address] Creatinine [Mass/Vol] 1.64 mg/dL High 0.70-1.30 [facility] Comment on above: Result Comment: The validity of the calculated GFR GFRAA in patients over 70 years has not been determined. Clinical correlation is essential. Performed By: #### M 100.637, M1.96 #### [facility] [address] [place], [address] ECRCL 66.96 ml/min Normal [facility] Comment on above: Performed By: #### M 100.637, M1.96 #### [facility] [address] [place], [address] EST GFR - AA 62 mL/min Normal >60 [facility] Comment on above: Result Comment: Afri can Moroccan GFR Calc Performed By: #### M 100.637, M1.6796 #### [facility] [address] [place], [address] GAP 10 Normal 5-15 [facility] Comment on above: Performed By: #### M 100.637, M100.6796 #### [facility] [address] [place], [address] GFR/1.73 sq M.predicted among non-blacks MDRD (S/P/Bld) [Vol rate/Area] 51 mL/min/{1.73_m2} Low >60 [facility] Comment on above: Result Comment: Non- GFR Calc Performed By: #### M 100.637, M1.96 #### [facility] [address] [place], [address] Globulin (S) [Mass/Vol] 3.1 g/dL Normal 2.2-4.2 [facility] Comment on above: Performed By: #### M 100.637, 96 #### [facility] [address] [place], [address] Glucose [Mass/Vol] 116 mg/dL High 74-106 [facility] Comment on above: Result Comment: Fast ing Glucose result from 100 to 125 mg/dL suggests IMPAIRED HOMEOSTASIS per A.D.A. criteria. Performed By: #### M 100.637, 96 #### [facility] [address] [place], [address] Potassium [Moles/Vol] 4.2 mmol/L Normal 3.5-5.1 [facility] Comment on above: Performed By: #### M 100.637, M196 #### [facility] [address] [place], [address] Sodium [Moles/Vol] 139 mmol/L Normal 136-145 [facility] Comment on above: Performed By: #### M 100.637, M196 #### [facility] [address] [place], [address] T PROT 6.9 g/dL Normal 6.4-8.2 [facility] Comment on above: Performed By: #### M 100.637, M196 #### [facility] [address] [place], [place], [address] Urea nitrogen [Mass/Vol] 24 mg/dL High 7-18 [facility] Comment on above: Performed By: #### M 100.618, M185.7365 #### [facility] [address] [place], [place], [address] D-Dimer Quantitative (DVT/PE )on 04-18-2024 D-DIMER QUANT 0.39 FEU/ug/m Normal 0.27-0.49 [facility] Comment on above: Result Comment: NORM AL D-Dimer level (<0.50) indicates no DVT or PE. Performed By: #### M 100.490, M100.7602 #### [facility] [address] [place], [place], [address] Emergency Department Summary on 04-18-2024 Emergency Department Summary [facility] Medical Records Department [address] [place] [address] Emergency Department Summary 04/18/24 MR#: [id number] Acct: [id number] Name: GABRIELA VIDAL Jr. Rep #: [id number] : 1990 33 From: Esteban Medel DO PCP: ELOISA Braden Status:ADM IN Location: [address] History of Present Illness Chief Complaint: Nausea/Vomiting Informant: patient Narrative Narrative: Patient is a 33-year-old male with past medical history of polysubstance abuse ADHD and schizophrenia. He states that in person he works with has been sick. He states today he started with nausea and vomiting as well as some loose stool and diarrhea. He states that he is feeling rundown tired and fatigued and with concern that he picked up an infection from his coworker comes in for evaluation PFSH PFS Medical History ADHD Schizophrenia Mood disorder Anxiety and depression CKD (chronic kidney disease), stage II Polysubstance abuse Tobacco use Home Medications ???Medication ???Instructions ???Recorded ???Last Taken ???Type guanfacine 2 mg tablet 2 mg PO QHS #30 tabs 12/21/23 Unknown Rx atomoxetine 40 mg capsule 40 mg PO DAILY 04/18/24 Unknown History (Strattera) Allergy/AdvReac Type Severity Reaction Status Date / Time No Known Allergies Allergy Verified 04/17/24 23:29 Family History (Updated 04/18/24 @ 02:[address] Lucero Vidal MD) Mother Kidney disease Father Cancer Surgical History (Updated 04/18/24 @ 02:[address] Lucero Vidal MD) History of dental surgery History of tonsillectomy and adenoidectomy Social History (Updated 04/18/24 @ 02:[address] Lucero Vidal MD) household members: other details: Lives with his uncle. Smoking Status: Current every day smoker tobacco type: cigarettes Smoking packs per day: 0.5 Smoking cigarettes per day: 10.0 alcohol intake: never substance use type: former substance user Date of last use: Fentanyl, Methamphetamines per prior records. ROS ROS ED Constitutional Constitutional ED: Denies chills or fever(s) ENT ENT ED: Denies sore throat Cardiovascular Cardiovascular: Denies chest pain Respiratory/Chest Respiratory/Chest: Denies cough or dyspnea Gastrointestinal Gastrointestinal: Reports diarrhea, nausea and vomiting; Denies abdominal pain Genitourinary Genitourinary ED: Denies dysuria Musculoskeletal Musculoskeletal: Reports myalgias Integumentary Denies rash Neurologic Neurologic: Reports weakness; Denies headache(s) Hematologic/Lymphatic Hematologic/Lymphatic: Denies easy bleeding or easy bruising EXAM Physical Exam Const Vital Signs: 04/17/24 23:29 04/18/24 01:29 Temperature 97.9 F Temperature Source Oral Pulse Rate 127 H 128 H Respiratory Rate 20 H 18 Blood Pressure 129/102 H 159/100 H Blood Pressure Mean 111 119 Pulse Ox 93 97 Oxygen Delivery Method Room Air Room Air Positive well nourished and well developed General Appearance ED: well developed; Negative for pallor HEENT Reports dry mucous membranes HEENT Narrative: Mucous membranes are dry and tacky No tongue or lip swelling no oral lesions no airway edema or compromise No secondary findings in the posterior pharynx to suggest infection Mouth ED: Yes dry mucous membranes Mouth: dry mucous membranes Eyes PERRL and EOMs intact bilaterally General Eye ED: Negative for scleral icterus Neck supple Neck Narrative: No nuchal rigidity or meningeal signs noted Chest Wall palpation of chest normal Resp normal respiratory effort Resp Narrative: Faint rhonchi noted in bilateral lower lobes but no nasal flaring retractions tachypnea or accessory muscle use Cardio regular rhythm Rate: tachycardic and other Other Details: Tachycardic rate with regular rhythm No murmurs rubs or gallop Radial and carotid pulses are equal and symmetric GI non-distended and no masses GI Narrative: Abdomen is soft and nondistended with hyperactive bowel sounds. There is mild diffuse pain with palpation without voluntary guarding or rigidity. No pulsatile mass or fluid wave Auscultation: hyperactive bowel sounds Palpation: soft Extremity normal to inspection Neuro oriented x3, CN's II-XII intact bilaterally and no sensory deficits noted Sensorium / Orientation: alert Motor Exam: strength 5/5 throughout Psych mental status grossly normal Skin no rashes or lesions noted and No skin turgor normal Skin Narrative: Skin turgor is increased General Skin Exam: Negative for jaundice or pallor MDM MDM MDM Narrative Medical decision making narrative: Patient arrived to the ER hypertensive and tachycardic. He reported 1 day of generalized fatigue with nausea vomiting and diarrhea and known sick contact. Differential diagnosis is for viral st (more content not included)... Normal [facility] Erythrocyte Sed Rateon 04-18 SED RATE Normal 0-20 [facility] Comment on above: Result Comment: JIMMY ASKEW,RN AWARE OF CANCELLING, SHE WILL INFORM Performed By: #### M 100637, M100.6796 #### [facility] [address] [place], [place], [id number] ([phone]) Ferritinon 04-18-2024 Ferritin [Mass/Vol] 175 ng/mL Normal 26-388 [facility] Comment on above: Order Comment: Comme nts: May add to ED labsmay add to ED labs Performed By: #### M 100.637, M100.6796 #### [facility] [address] [place], [place], [address] ([phone] H AND P Exam - Hospitaliston 04-18-2024 H&P Exam - Hospitalist [facility] Medical Records Department [address] [place] [address] H P Exam - Hospitalist 04/18/24 0228 MR#: [id number] Acct: [id number] Name: GABRIELA VIDAL Jr. Rep #: [id number] : 1990 33 From: Lucero Vidal MD PCP: Shania Vieira, [employer]-[facility] Status:ADM IN Location: MS3 MSED-2 HPI - General General Date of Admission: 04/18/24 Date of Service: 04/18/24 Chief Complaint: N/V/D HPI Narrative The patient is a 33 y/o M w/ PMHx: Anxiety and Depression/Mood disorder/High suspicion underlying schizophrenia with history of frequent auditory hallucinations, Tobacco use, CKD stage II per GFR trending, History of Polysubstance abuse (Fentanyl, Methamphetamines per prior records) who presents to the [facility] ED on 04/18/24 with history of onset significant nausea, emesis and diarrhea starting at 4 in the afternoon reporting recent ill contacts at work not abating prompted eventual ED evaluation to be cautious. Patient notes mild generalized abdominal discomfort more so cramping although lessened since initial ED arrival. Upon evaluation in the ED notes his nausea is currently abated. Workup in the ED included T98, heart rate 76, BP 138/90, respiratory rate 18, 98% on room air with most recent repeat vital signs T97.9 Orally, heart rate 127, BP 129/102, respiratory rate 20, 93% on room air, CBC with WBC 25.5, hemoglobin 16.7, platelet 330 with left shift, CMP with, oxide 20, anion gap 16, BUN/creatinine 31/2.7, GFR 27, glucose 125, calcium 10.2, magnesium 2.2, T. bili 1.50, D bili 0.37, AST/ALT 59/61, alk phos 85, lipase 17, CT A/P with with thickening of the distal colonic wall primarily due to lack of distention but a mild colitis of the distal sigmoid colon may also be present, normal appendix with no findings of bowel obstruction or obstructive uropathy, SARS COVID/influenza/RSV PCR with positive COVID PCR. In the ED patient ministered 2 L normal saline as well as Zofran 4 mg IV x 1. PFSH Medical History ADHD Schizophrenia Mood disorder Anxiety and depression CKD (chronic kidney disease), stage II Polysubstance abuse Tobacco use Home Medications ???Medication ???Instructions ???Recorded ???Last Taken ???Type guanfacine 2 mg tablet 2 mg PO QHS #30 tabs 12/21/23 Unknown Rx atomoxetine 40 mg capsule 40 mg PO DAILY 04/18/24 Unknown History (Strattera) Allergy/AdvReac Type Severity Reaction Status Date / Time No Known Allergies Allergy Verified 04/17/24 23:29 Family History (Updated 04/18/24 @ 02:[address] Lucero Vidal MD) Mother Kidney disease Father Cancer Surgical History (Updated 04/18/24 @ 02:[address] Lucero Vidal MD) History of dental surgery History of tonsillectomy and adenoidectomy Social History (Updated 04/18/24 @ 02:[address] Lucero Vidal MD) household members: other details: Lives with his uncle. Smoking Status: Current every day smoker tobacco type: cigarettes Smoking packs per day: 0.5 Smoking cigarettes per day: 10.0 alcohol intake: never substance use type: former substance user Date of last use: Fentanyl, Methamphetamines per prior records. ROS ROS Narrative Admission Review of Systems: CONSTITUTIONAL: No weight loss, fever, chills, + weakness or fatigue. HEENT: Eyes: No visual loss, blurred vision, double vision or yellow sclerae. Ears, Nose, Throat: No hearing loss, sneezing, congestion, runny nose or sore throat. SKIN: No rash or itching, lesions, wounds. CARDIOVASCULAR: No chest pain, chest pressure or chest discomfort, palpitations, edema, orthopnea, syncopal events. RESPIRATORY: No shortness of breath, cough or sputum, wheezing, hemoptysis. GASTROINTESTINAL: + anorexia, nausea, vomiting, or diarrhea, abdominal pain. No melena, BRBPR. GENITOURINARY: No dysuria, frequency, urgency or retention. NEUROLOGICAL: No headache, dizziness, syncope, paralysis, ataxia, numbness or tingling in the extremities, focal weakness, change in bowel or bladder control, seizure. MUSCULOSKELETAL: + muscle, back pain, joint pain or stiffness. HEMATOLOGIC: No anemia, bleeding or bruising. LYMPHATICS: No enlarged nodes. No history of splenectomy. PSYCHIATRIC: + History of anxiety depression/mood disorder/ADHD/schizophr enia. ENDOCRINOLOGIC: No reports of sweating, cold or heat intolerance. No polyuria or polydipsia. ALLERGIES: No history of asthma, hives, eczema or rhinitis. Vital Signs Vital Signs Vital Signs: 04/17/24 23:29 04/18/24 01:29 Temperature 97.9 F Temperature Source Oral Pulse Rate 127 H 128 H Respiratory Rate 20 H 18 Blood Pressure 129/102 H 159/100 H Blood Pressure Mean 111 119 Pulse Ox 93 97 Oxygen Delivery Method Room Air Room Air Weight Weight: 174 lb 13.225 oz Body Mass Index (BMI) 24.3 Physical Exam Narrative Physical Examination: Genera (more content not included)... Normal [facility] HIV - WCHon 04-18-2024 HIV Non-Reactive Normal Nonreactive [facility] Comment on above: Order Comment: Reaso n for Exam: Hx polysubstance abuseReason for Exam: Hepatitis Screen Performed By: #### L 509.8000, L3890.6005, L3890.6100, L3890.6200, L3890.6300 ####[facility] [address] [place], [address] Hepatitis B Surface Antibody on 04-18-2024 HEP B Surf Ab Non-Reactive Normal [facility] Comment on above: Order Comment: Reaso n for Exam: Hx polysubstance abuseReason for Exam: Hepatitis Screen Result Comment: Non Reactive: Inconsistent with immunity less than <10 mIU/mL Reactive: Consistent with immunity greater than or equal to 10 mIU/mL Performed By: #### L 509.8000, L3890.6005, L3890.6100, L3890.6200, L3890.6300 ####[facility] [address] [place], [place], [id number] Hepatitis B Surface Antigeno n 04-18-2024 HEP B Surf Ag Non-Reactive Normal Nonreactive [facility] Comment on above: Order Comment: Reaso n for Exam: Hx polysubstance abuseReason for Exam: Hepatitis Screen Performed By: #### L 509.8000, L3890.6005, L3890.6100, L3890.6200, L3890.6300 ####[facility] [address] [place], [address] Hepatitis C Antibodyon 04-18 Hepatitis C AB Non-Reactive Normal Nonreactive [facility] Comment on above: Order Comment: Reaso n for Exam: Hx polysubstance abuseReason for Exam: Hepatitis Screen Result Comment: Non Reactive: < 0.8 Equivocal: >/= 0.8 to < 1.0 Reactive: >/= 1.0 The [facility] requires that a reactive/equivocal HCV antibody result be sent out for confirmation. HCV Quant by PCR testing. Performed By: #### L 509.8000, L3890.6005, L3890.6100, L3890.6200, L3890.6300 ####[facility] [address] [place], [address] L509.8000on 04-18-2024 Syphilis Abs Non-Reactive Normal [facility] Comment on above: Order Comment: Reaso n for Exam: Hx polysubstance abuseReason for Exam: Hepatitis Screen Performed By: #### L 509.8000, L3890.6005, L3890.6100, L3890.6200, L3890.6300 ####[facility] [address] [place], [place], [id number] LDHon 04-18-2024 LDH 338 U/L High 87-241 [facility] Comment on above: Order Comment: Comme nts: May add to ED labsmay add to ED labs Performed By: #### M 100.637, M100.6796 #### [facility] [address] [place], [place], [address] Lipaseon 04-18-2024 Lipase [Catalytic activity/Vol] 17 U/L Normal 13-75 [facility] Comment on above: Result Comment: Aniyah castañeda note: LIPASE revised reference range effective 22. New Lipase methodology. Expected to produce lower values than the previous assay method. NEW Reference Range: 13 - 75 U/L Performed By: #### L 100.0100, L501.2450, L500.2500, L500.3400, L501.5200 #### [facility] [address] [place], [address] Liver Profileon 04-18-2024 Albumin [Mass/Vol] 4.8 g/dL Normal 3.2-5.0 [facility] Comment on above: Performed By: #### L 100.0100, L501.2450, L500.2500, L500.3400, L501.5200 #### [facility] [address] [place], [address] ALK P 85 U/L Normal 45-117 [facility] Comment on above: Performed By: #### L 100.0100, L501.2450, L500.2500, L500.3400, L501.5200 #### [facility] [address] [place], [address] ALT [Catalytic activity/Vol] 61 U/L Normal 16-61 [facility] Comment on above: Performed By: #### L 100.0100, L501.2450, L500.2500, L500.3400, L501.5200 #### [facility] [address] [place], [address] AST [Catalytic activity/Vol] 59 U/L High 15-37 [facility] Comment on above: Performed By: #### L 100.0100, L501.2450, L500.2500, L500.3400, L501.5200 #### [facility] [address] [place], [address] Bilirubin [Mass/Vol] 1.50 mg/dL High 0.20-1.00 [facility] Comment on above: Result Comment: For patients on eltrombopag therapy, use of [facility] TBIL is not recommended. Performed By: #### L 100.0100, L501.2450, L500.2500, L500.3400, L501.5200 #### [facility] [address] [place], [address] Bilirubin.direct [Mass/Vol] 0.37 mg/dL High 0.00-0.30 [facility] Comment on above: Performed By: #### L 100.0100, L501.2450, L500.2500, L500.3400, L501.5200 #### [facility] [address] [place], [address] Globulin (S) [Mass/Vol] 3.6 g/dL Normal 2.2-4.2 [facility] Comment on above: Performed By: #### L 100.0100, L501.2450, L500.2500, L500.3400, L501.5200 #### [facility] [address] [place], [address] T PROT 8.4 g/dL High 6.4-8.2 [facility] Comment on above: Performed By: #### L 100.0100, L501.2450, L500.2500, L500.3400, L501.5200 #### [facility] [address] [place], [address] M100.678on 04-18-2024 M100.678 Copy of report sent to Infection Control Printer MS#[id number] 04/18/24 1335 ERICKA. [facility] 0122 Abundio Leon. RESULTS READ BACK BY SAME. SARS-CoV-2 (COVID 19) A Positive A INFLUENZA A Negative INFLUENZA B Negative RSV PCR Negative SARS-CoV-2 (COVID 19 PCR) Normal [facility] Comment on above: Performed By: #### M 100.678 ####[facility] [address] [place], [address] Magnesiumon 04-18-2024 Magnesium [Mass/Vol] 2.2 mg/dL Normal 1.6-2.6 [facility] Comment on above: Performed By: #### L 100.0100, L501.2450, L500.2500, L500.3400, L501.5200 #### [facility] [address] [place], [address] Procalcitoninon 04-18-2024 Procalcitonin 3.46 ng/mL High 0.00-0.09 [facility] Comment on above: Result Comment: A procalcitonin (PCT) level above 2.0 ng/mL on the first day of ICU admission is associated with a high risk for progression to severe sepsis and/or septic shock. A PCT level below 0.5 ng/mL on the first day of ICU admission is associated with a low risk for progression to severe and/or septic shock. Note: Concentrations <0.5 ng/mL do not exclude an infection on account of localized infections (without systemic signs) which can be associated with such low concentrations, or a systemic infection in its initial stages (<6 hours). Furthermore, increased procalcitonin can occur without infection. PCT concentrations between 0.5 and 2.0 ng/mL should be interpreted taking into account the patient's history. It is recommended to retest PCT within 6-24 hours if any concentrations <2 ng/mL are obtained. Performed By: #### M 100.637, M1.96 #### [facility] [address] [place], [place], [id number] Urine Drug Screen (VISTA)on 04-18-2024 AMPHETAMINES Positive Abnormal <1000 ng/mL [facility] Comment on above: Performed By: #### M 100.637, M1.96 #### [facility] [address] [place], [address] BARBITIURATES Negative Normal < 200 ng/mL [facility] Comment on above: Performed By: #### M 100.637, M1.6796 #### [facility] [address] [place], [address] BENZODIAZIPINE Negative Normal < 200 ng/mL [facility] Comment on above: Performed By: #### M 100.637, M1.96 #### [facility] [address] [place], [address] COCAINE Negative Normal < 300 ng/mL [facility] Comment on above: Performed By: #### M 100.637, M196 #### [facility] [address] [place], [address] ECSTACY Positive Abnormal < 500 ng/mL [facility] Comment on above: Performed By: #### M 100.637, 96 #### [facility] [address] [place], [address] METHADONE Negative Normal < 300 ng/mL [facility] Comment on above: Performed By: #### M 100.637, 96 #### [facility] [address] [place], [address] OPIATES Negative Normal < 300 ng/mL [facility] Comment on above: Performed By: #### M 100.637, 96 #### [facility] [address] [place], [address] PCP Negative Normal < 25 ng/mL [facility] Comment on above: Performed By: #### M 100.637, 96 #### [facility] [address] [place], [address] THC Positive Abnormal < 50 ng/mL [facility] Comment on above: Performed By: #### M 100.637, M196 #### [facility] [address] [place], [address] VISTA UDS PH 3 Normal [facility] Comment on above: Performed By: #### M 100.637, M196 #### [facility] [address] [place], [address] CNPNon 01-28-2024 CNPN Telephone (AGFAMPLE) GABRIELA VIDAL JR. ([id number]) 1990 M Date Time Provider Department 01/28/24 SHANIA VIEIRA During your visit today, we recorded the following information about you: Gracy Doss 01/28/2024 11:45 AM Signed Patient came to office because he is still in pain. Referral was give for Dr De Santiago. Please enter referral to patient chart. Thanks Shania Vieira APRN.AUTOMOTIVE SERVICE PROFESSIONAL 01/28/2024 12:13 PM Signed Referral placed to orthopedics/sports medicine Allergies As of Date: 01/28/2024 (No Known Allergies) Date Reviewed: 01/15/2024 Reviewed by: Shania Vieira APRN.AUTOMOTIVE SERVICE PROFESSIONAL - Fully Assessed Reason for Visit: Consult [502] Primary Visit Diagnosis:Acute pain of left shoulder [M25.512] Other Visit Diagnosis:Injury of left shoulder, initial encounter [S49.92XA] Order(s):CONSULT TO ORTHOPAEDICS [9026] Order #: [id number]: 1 FUTURE Prescriptions as of 01/28/2024 - hydrOXYzine HCl (ATARAX) 50 mg tablet Take 50 mg by mouth every 6 hours as needed. - traZODone (DESYREL) 50 mg tablet Take 50 mg by mouth at bedtime as needed. For Insomnia - guanFACINE (INTUNIV) 1 mg ER 24 hr tablet(s) TAKE 2 TABLETS BY MOUTH ONCE DAILY AT BEDTIME FOR ADD OR ADHD - risperiDONE (RISPERDAL) 2 mg tablet Take 2 mg by mouth daily at bedtime. - lamoTRIgine (LAMICTAL) 25 mg tablet TAKE 2 TABLETS BY MOUTH ONCE DAILY AT BEDTIME FOR BIPOLAR DISORDER. - ibuprofen (MOTRIN) 600 mg tablet Take 1 tablet by mouth every 6 hours as needed for pain. Problem List As Of Date 01/28/2024 Noted Resolved Adult ADHD [F90.9] 07/16/2014 Schizoaffective disorder (HCC) [F25.9] 01/15/2024 Drug overdose [T50.901A] 01/15/2024 Substance abuse (HCC) [F19.10] 01/15/2024 Acute psychosis (HCC) [F23] 10/03/2023 Auditory hallucinations [R44.0] 01/15/2024 Marijuana use [F12.90] 01/15/2024 Encounter Status:Closed by SHANIA VIEIRA on 01/28/24 [facility] Absolute lymphocyte countOrd ered By: Jose E Meier on 09-28-2023 Lymphocytes Auto (Unsp spec) [#/Vol] 1.95 10*3/uL 0.83-4.51 [facility] Automated lymphocyte count a s percentage of total leukocytesOrdered By: Jose E Meier on 09-28-2023 Lymphocytes/100 WBC Auto (Unsp spec) 19.5 % 19-41 [facility] Basophil percentageOrdered B y: Jose E Meier on 09-28-2023 Basophils/100 WBC (Bld) 0.5 % 0-1 [facility] Chloride [Moles/Vol] 113 mmol/L 98-107 [facility] Eosinophils/100 WBC (Bld) 0.3 % 0-5 [facility] Glucose [Mass/Vol] 114 mg/dL 74-106 [facility] Comment on above: Fasting Glucose resu lt from 100 to 125 mg/dL suggests IMPAIRED HOMEOSTASIS per A.D.A. criteria. Hemoglobin (Bld) [Mass/Vol] 14.9 g/dL 13.0-16.5 [facility] Monocytes/100 WBC (Bld) 5.9 % 0-10 [facility] Neutrophils (Bld) [#/Vol] 7.3 10*3/uL 2.0-7.7 [facility] Neutrophils/100 WBC (Bld) 73.3 % 47-70 [facility] Potassium [Moles/Vol] 3.7 mmol/L 3.5-5.1 [facility] Sodium [Moles/Vol] 143 mmol/L 136-145 [facility] WBC (Bld) [#/Vol] 10.0 10*3/uL 4.4-11.0 [facility] Determination of erythrocyte mean corpuscular volume (MCV)Ordered By: Jose E Meier on 09-28-2023 MCV (RBC) [Entitic vol] 89.6 fL 80-94 [facility] Erythrocyte distribution wid th ratioOrdered By: Jose E Meier on 09-28-2023 Erythrocyte distribution width (RBC) [Ratio] 12.3 % 11.6-14.6 [facility] Erythrocyte distribution wid th standard deviationOrdered By: Jose E Meier on 09-28-2023 Erythrocyte distribution width (RBC) [Entitic vol] 40.1 fL 35.1-43.9 [facility] Hematocrit Auto (Bld) [Volum e fraction]Ordered By: Jose E Meier on 09-28-2023 Hematocrit (Bld) [Volume fraction] 44.8 % 40-54 [facility] Immature granulocytes/100 WB C Auto (Bld)Ordered By: Jose E Meier on 09-28-2023 Immature granulocytes/100 WBC (Bld) 0.500 % 0.0-0.9 [facility] Comment on above: IG% - Immature Granu locytes (promyelocytes, myelocytes and metamyelocytes) > 1% indicates that a LEFT SHIFT is Present. Laboratory - Chemistry and C hemistry - challengeOrdered By: Jose E Meier on 09-28-2023 CO2 [Moles/Vol] 28.0 mmol/L 21.0-32.0 [facility] Urea nitrogen/Creatinine [Mass ratio] 15.7 mg/mg 10-20 [facility] Laboratory - Drug toxicology Ordered By: Jose E Meier on 09-28-2023 Amphetamines Ql (U) Negative <1000 ng/mL [facility] Benzodiazepines Ql (U) Negative < 200 ng/mL [facility] Cannabinoids Screen Ql (U) Positive < 50 ng/mL [facility] Cocaine Ql (U) Negative < 300 ng/mL [facility] Opiates Ql (U) Negative < 300 ng/mL [facility] Laboratory - Hematology and Cell countsOrdered By: Jose E Meier on 09-28-2023 MCH (RBC) [Entitic mass] 29.8 pg 27.0-32.0 [facility] MCHC (RBC) [Mass/Vol] 33.3 g/dL 32-36 [facility] Nucleated RBC/100 WBC (Bld) [Ratio] 0 % 0-5 [facility] Platelet mean volume (Bld) [Entitic vol] 10.8 fL 6.2-12.0 [facility] Platelets (Bld) [#/Vol] 256 10*3/uL 150-450 [facility] Laboratory - Microbiology an d Antimicrobial susceptibilityOrdered By: Jose E Meier on 09-28-2023 SARS-CoV-2 (COVID-19) RNA CARLOS+probe Ql (Unsp spec) [facility] No Panel InformationOrdered By: Jose E Meier on 09-28-2023 Estimated Creatinine Clearance Calc 105.36 ml/min [facility] Estimated GFR (MDRD) Amer 107 mL/min >60 [facility] Comment on above: GFR Calc Estimated GFR (MDRD) Non-Af Amer 88 mL/min >60 [facility] Comment on above: Non- GFR Calc Ethyl Alcohol Level 4.0 mg/dL [facility] Comment on above: The serum:whole bloo d ethanol ratio is approximately 1.14and varies slightly with hematocrit. Medical Alcohol reference interval and critical value innon-tolerant individuals; 50 - 100 Impairment 100 Intoxication 100 - 250 Severe Poisoning 250 - 400 Deep/possible fatal coma MDMA (Ecstasy) Screen Negative < 500 ng/mL [facility] Urine Barbiturates Screen Negative < 200 ng/mL [facility] Urine Drug Screen Comment [facility] Comment on above: CONFIRMATORY TESTING FOR ALL POSITIVE URINE DRUG SCREENRESULTS WILL ONLY BE SENT OUT UPON PHYSICIAN ORDER. VISTA Urine Drug Screen methods provide only preliminaryanalytical test results. A more specific alternate chemicalmethod must be used in order to obtain a confirmedanalytical result. Gas chromatography/mass spectrometery(GC/MS) is the preferred confirmatory method. Clinicalconsideration and professional judgement should be appliedto any drug of abuse test result, particularly whenpreliminary positive results are used. URINE TCA TESTING MUST BE ORDERED SEPARATELY. USE TESTMNEMONIC: [facility] Urine Methadone Screen Negative < 300 ng/mL [facility] RBC Auto (Bld) [#/Vol]Ordere d By: Jose E Meier on 09-28-2023 RBC (Bld) [#/Vol] 5.00 10*6/uL 4.6-6.2 [facility] Serum or plasma calcium jacob urement (mass/volume)Ordered By: Jose E Meier on 09-28-2023 Calcium [Mass/Vol] 8.7 mg/dL 8.5-10.1 [facility] Serum or plasma creatinine m easurement (mass/volume)Ordered By: Jose E Meier on 09-28-2023 Creatinine [Mass/Vol] 1.02 mg/dL 0.70-1.30 [facility] Comment on above: The validity of the calculated GFR & GFRAA in patients over 70 years has not been determined. Clinical correlation is essential. Serum or plasma urea nitroge n measurement (mass/volume)Ordered By: Jose E Meier on 09-28-2023 Urea nitrogen [Mass/Vol] 16 mg/dL 7-18 [facility] Thin prep Papanicolaou smear with manual screeningOrdered By: Jose E Meier on 09-28-2023 Thin prep Papanicolaou smear with manual screening 2 5-15 [facility] Urine phencyclidine (PCP) de tectionOrdered By: Jose E Meier on 09-28-2023 Phencyclidine Ql (U) Negative < 25 ng/mL [facility] ALLIED HEALTHon 01-29-2023 ALLIED HEALTH HNO ID: [id number] Author: RT Latoya(R) Service: Radiology Author Type: A Operator Type: Allied Health Filed: 01/29/2023 1:10 PM Note Text: Radiology Service Progress Note PATIENT NAME: Gabriela Vidal Jr. DATE OF SERVICE: January 29, 2023 TIME: 1:10 PM PATIENT IDENTITY VERIFICATION COMPLETED USING TWO (2) IDENTIFIERS: Name and Date of confirmed by patient verbally and Name and Date of confirmed by identification band. FALL SCREENING: Has the patient had 2 falls in the last year or 1 fall with injury or currently using an Ambulatory Assistive Device (Walker, Cane, Wheelchair, Crutches, etc.)? Emergency Room Patient: Screened in ED PATIENT GENDER DATA: Male PATIENT RELEVANT IMPLANT DATA REVIEWED: Not Applicable RADIOLOGY DEPARTMENT: General X-ray: Exam(s) Completed: Chest X-Ray PERIPHERAL IV DATA: Not applicable SIGNED BY: RT Latoya(R) January 29, 2023 1:10 PM [facility] CBC W Auto Differential pane l (Bld)on 01-29-2023 Basophils (Bld) [#/Vol] 0.03 10*3/uL Normal <0.11 [facility] Comment on above: Order Comment: Speci men Type: BLOOD SPECIMEN Ordering Facility: [facility] Address: [address] [place] [address] Performed By: #### 5 7021-8 #### [facility] CLIA [id number] [place] [address] [place] Basophils/100 WBC (Bld) 0.5 % Normal [facility] Comment on above: Order Comment: Speci men Type: BLOOD SPECIMEN Ordering Facility: [facility] Address: [address] [place] [address] Performed By: #### 5 7021-8 #### [facility] CLIA [id number] [address] [place] [address] [place] Differential cell count method Nom (Bld) Auto [facility] Comment on above: Order Comment: Speci men Type: BLOOD SPECIMEN Ordering Facility: [facility] Address: [address] [place] [address] Performed By: #### 5 7021-8 #### [facility] CLIA [id number] [address] [place] [address] [place] Eosinophils (Bld) [#/Vol] 0.16 10*3/uL Normal <0.46 [facility] Comment on above: Order Comment: Speci men Type: BLOOD SPECIMEN Ordering Facility: [facility] Address: [address] [place] [address] Performed By: #### 5 7021-8 #### [facility] CLIA [id number] [address] [place] [address] [place] Eosinophils/100 WBC (Bld) 2.4 % [facility] Comment on above: Order Comment: Speci men Type: BLOOD SPECIMEN Ordering Facility: [facility] Address: [address] [address] Performed By: #### 5 7021-8 #### [facility] CLIA [id number] [address] [place] [address] [place] Erythrocyte distribution width (RBC) [Ratio] 12.7 % Normal 11.5-15.0 [facility] Comment on above: Order Comment: Speci men Type: BLOOD SPECIMEN Ordering Facility: [facility] Address: [address] [address] Performed By: #### 5 7021-8 #### [facility] CLIA [id number] [address] [place] [address] [place] Hematocrit (Bld) [Volume fraction] 39.3 % Normal 39.0-51.0 [facility] Comment on above: Order Comment: Speci men Type: BLOOD SPECIMEN Ordering Facility: [facility] Address: [address] [address] Performed By: #### 5 7021-8 #### [facility] IA [id number] [address] [place] [address] [place] Hemoglobin (Bld) [Mass/Vol] 13.1 g/dL Normal 13.0-17.0 [facility] Comment on above: Order Comment: Speci men Type: BLOOD SPECIMEN Ordering Facility: [facility] Address: [address] [address] Performed By: #### 5 7021-8 #### [facility] CLIA [id number] [address] [place] [address] [place] Immature granulocytes (Bld) [#/Vol] 0.03 10*3/uL Normal <0.10 [facility] Comment on above: Order Comment: Speci men Type: BLOOD SPECIMEN Ordering Facility: [facility] Address: [address] [address] Performed By: #### 5 7021-8 #### [facility] CLIA [id number] [address] [place] [address] [place] Immature granulocytes/100 WBC (Bld) 0.5 % Normal [facility] Comment on above: Order Comment: Speci men Type: BLOOD SPECIMEN Ordering Facility: [facility] Address: [address] [place] [address] Performed By: #### 5 7021-8 #### [facility] CLIA [id number] [place] [address] [place] Lymphocytes (Bld) [#/Vol] 3.11 10*3/uL Normal 1.00-4.00 [facility] Comment on above: Order Comment: Speci men Type: BLOOD SPECIMEN Ordering Facility: [facility] Address: [address] [place] [address] Performed By: #### 5 7021-8 #### [facility] CLIA [id number] [place] [address] [place] Lymphocytes/100 WBC (Bld) 47.3 % Normal [facility] Comment on above: Order Comment: Speci men Type: BLOOD SPECIMEN Ordering Facility: [facility] Address: [address] [place] [address] Performed By: #### 5 7021-8 #### [facility] CLIA [id number] [address] [place] [address] [place] MCH (RBC) [Entitic mass] 30.0 pg Normal 26.0-34.0 [facility] Comment on above: Order Comment: Speci men Type: BLOOD SPECIMEN Ordering Facility: [facility] Address: [address] [place] [address] Performed By: #### 5 7021-8 #### [facility] CLIA [id number] [place] [address] [place] MCHC (RBC) [Mass/Vol] 33.3 g/dL Normal 30.5-36.0 [facility] Comment on above: Order Comment: Speci men Type: BLOOD SPECIMEN Ordering Facility: [facility] Address: [address] [place] [address] Performed By: #### 5 7021-8 #### [facility] CLIA [id number] [place] [address] [place] MCV (RBC) [Entitic vol] 90.1 fL Normal 80.0-100.0 [facility] Comment on above: Order Comment: Speci men Type: BLOOD SPECIMEN Ordering Facility: [facility] Address: [address] [place] [address] Performed By: #### 5 7021-8 #### [facility] CLIA [id number] [address] [place] [address] [place] Monocytes (Bld) [#/Vol] 0.65 10*3/uL Normal <0.87 [facility] Comment on above: Order Comment: Speci men Type: BLOOD SPECIMEN Ordering Facility: [facility] Address: [address] [place] [address] Performed By: #### 5 7021-8 #### [facility] CLIA [id number] [address] [place] [address] [place] Monocytes/100 WBC (Bld) 9.9 % Normal [facility] Comment on above: Order Comment: Speci men Type: BLOOD SPECIMEN Ordering Facility: [facility] Address: [address] [place] [address] Performed By: #### 5 7021-8 #### [facility] CLIA [id number] [address] [place] [address] [place] Neutrophils (Bld) [#/Vol] 2.59 10*3/uL Normal 1.45-7.50 [facility] Comment on above: Order Comment: Speci men Type: BLOOD SPECIMEN Ordering Facility: [facility] Address: [address] [place] [address] Performed By: #### 5 7021-8 #### [facility] CLIA [id number] [place] [address] [place] Neutrophils/100 WBC (Bld) 39.4 % Normal [facility] Comment on above: Order Comment: Speci men Type: BLOOD SPECIMEN Ordering Facility: [facility] Address: [address] [address] Performed By: #### 5 7021-8 #### [facility] CLIA [id number] [address] [place] [address] [place] Nucleated RBC (Bld) [#/Vol] 10*3/uL Normal <0.01 [facility] Comment on above: Order Comment: Speci men Type: BLOOD SPECIMEN Ordering Facility: [facility] Address: [address] [address] Performed By: #### 5 7021-8 #### [facility] CLIA [id number] [address] [place] [address] [place] Nucleated RBC/100 WBC (Bld) [Ratio] 0.0 /100 WBC Normal [facility] Comment on above: Order Comment: Speci men Type: BLOOD SPECIMEN Ordering Facility: [facility] Address: [address] [address] Performed By: #### 5 7021-8 #### [facility] CLIA [id number] [address] [place] [address] [place] Platelet mean volume (Bld) [Entitic vol] 10.9 fL Normal 9.0-12.7 [facility] Comment on above: Order Comment: Speci men Type: BLOOD SPECIMEN Ordering Facility: [facility] Address: [address] [address] Performed By: #### 5 7021-8 #### [facility] CLIA [id number] [address] [place] [address] [place] Platelets (Bld) [#/Vol] 209 10*3/uL Normal 150-400 [facility] Comment on above: Order Comment: Speci men Type: BLOOD SPECIMEN Ordering Facility: [facility] Address: [address] [place] [address] Performed By: #### 5 7021-8 #### [facility] CLIA [id number] RBC (Bld) [#/Vol] 4.36 10*6/uL Normal 4.20-6.00 [facility] Comment on above: Order Comment: Speci men Type: BLOOD SPECIMEN Ordering Facility: [facility] Address: [address] [place] [address] Performed By: #### 5 7021-8 #### [facility] CLIA [id number] [address] [place] [address] WBC (Bld) [#/Vol] 6.57 10*3/uL Normal 3.70-11.00 [facility] Comment on above: Order Comment: Speci men Type: BLOOD SPECIMEN Ordering Facility: [facility] Address: [address] [place] [address] Performed By: #### 5 7021-8 #### [facility] CLIA [id number] [address] [place] [address] [place] [facility] [place] Comprehensive metabolic 2000 panelon 01-29-2023 Albumin [Mass/Vol] 3.6 g/dL Low 3.9-4.9 [facility] Comment on above: Order Comment: Speci men Type: BLOOD SPECIMEN Ordering Facility: [facility] Address: [address] [place] [address] Performed By: #### 1 9123-9, [id number], 38193-1 #### [facility] CLIA [id number] [address] [place] [address] [place] ALP [Catalytic activity/Vol] 46 U/L Normal 38-113 [facility] Comment on above: Order Comment: Speci men Type: BLOOD SPECIMEN Ordering Facility: [facility] Address: [address] [place] [address] Performed By: #### 1 9123-9, [id number], 87030-8 #### [facility] CLIA [id number] [address] [place] [address] [place] ALT [Catalytic activity/Vol] 13 U/L Normal 10-54 [facility] Comment on above: Order Comment: Speci men Type: BLOOD SPECIMEN Ordering Facility: [facility] Address: [address] [address] Performed By: #### 1 9123-9, [id number], #### [facility] CLIA [id number] [place] [address] [place] Anion gap [Moles/Vol] 7 mmol/L Low 9-18 [facility] Comment on above: Order Comment: Speci men Type: BLOOD SPECIMEN Ordering Facility: [facility] Address: [address] [address] Performed By: #### 1 9123-9, [id number], #### [facility] CLIA [id number] [address] [place] [address] [place] AST [Catalytic activity/Vol] 16 U/L Normal 14-40 [facility] Comment on above: Order Comment: Speci men Type: BLOOD SPECIMEN Ordering Facility: [facility] Address: [address] [address] Performed By: #### 1 9123-9, [id number], #### [facility] CLIA [id number] [address] [place] [address] [place] Bilirubin [Mass/Vol] 0.4 mg/dL Normal 0.2-1.3 [facility] Comment on above: Order Comment: Speci men Type: BLOOD SPECIMEN Ordering Facility: [facility] Address: [address] Performed By: #### 1 9123-9, [id number], #### [facility] CLIA [id number] [address] [place] [address] [place] Calcium [Mass/Vol] 8.4 mg/dL Low 8.5-10.2 [facility] Comment on above: Order Comment: Speci men Type: BLOOD SPECIMEN Ordering Facility: [facility] Address: [address] [address] Performed By: #### 1 9123-9, [id number], 65783-8 #### [facility] CLIA [id number] [place] [address] [place] Chloride [Moles/Vol] 108 mmol/L High 97-105 [facility] Comment on above: Order Comment: Speci men Type: BLOOD SPECIMEN Ordering Facility: [facility] Address: [address] [place] [address] Performed By: #### 1 9123-9, [id number], 28848-0 #### [facility] CLIA [id number] [address] [place] [address] [place] CO2 [Moles/Vol] 26 mmol/L Normal 22-30 [facility] Comment on above: Order Comment: Speci men Type: BLOOD SPECIMEN Ordering Facility: [facility] Address: [address] [place] [address] Performed By: #### 1 9123-9, [id number], #### [facility] CLIA [id number] [address] [place] [address] [place] Creatinine [Mass/Vol] 1.14 mg/dL Normal 0.73-1.22 [facility] Comment on above: Order Comment: Speci men Type: BLOOD SPECIMEN Ordering Facility: [facility] Address: [address] [place] [address] Performed By: #### 1 9123-9, [id number], #### [facility] CLIA [id number] [address] [place] [address] [place] ESTIMATED GLOMERULAR FILTRATION RATE 87 mL/min/1.73m??? Normal >=60 [facility] Comment on above: Order Comment: Speci men Type: BLOOD SPECIMEN Ordering Facility: [facility] Address: [address] [place] [address] Result Comment: Cathy mated Glomerular Filtration Rate (eGFR) is calculated using the 2020 CKD-EPI creatinine equation. This equation utilizes serum creatinine, sex, and age as parameters. The creatinine assay has traceable calibration to isotope dilution-mass spectrometry. Refer to KDIGO guidelines for clinical interpretation. In patients with unstable renal function, e.g. those with acute kidney injury, the eGFR may not accurately reflect actual GFR. Performed By: #### 1 9123-9, [id number], #### [facility] CLIA [id number] [id number] [place] Glucose [Mass/Vol] 115 mg/dL High 74-99 [facility] Comment on above: Order Comment: Cristela ness Type: BLOOD SPECIMEN Ordering Facility: [facility] Address: [address] [place] [address] Result Comment: The [place] [employer] (ADA) provides guidance for cutoff values for fasting glucose and random glucose. The ADA defines fasting as no caloric intake for at least 8 hours. Fasting plasma glucose results between 100 to 125 mg/dL indicate increased risk for diabetes (prediabetes). Fasting plasma glucose results greater than or equal to 126 mg/dL meet the criteria for diagnosis of diabetes. In the absence of unequivocal hyperglycemia, results should be confirmed by repeat testing. In a patient with classic symptoms of hyperglycemia or hyperglycemic crisis, random plasma glucose results greater than or equal to 200 mg/dL meet the criteria for diagnosis of diabetes. Reference: Standards of Medical Care in Diabetes 2016, [place] [employer]. Diabetes Care. 2016.39(Suppl 1). Performed By: #### 1 9123-9, [id number], #### [facility] CLIA [id number] [id number] [place] Potassium [Moles/Vol] 4.1 mmol/L Normal 3.7-5.1 [facility] Comment on above: Order Comment: Cristela ness Type: BLOOD SPECIMEN Ordering Facility: [facility] Address: [address] [place] [address] Performed By: #### 1 9123-9, [id number], #### [facility] CLIA [id number] [address] [id number] [place] Protein [Mass/Vol] 5.5 g/dL Low 6.3-8.0 [facility] Comment on above: Order Comment: Speci men Type: BLOOD SPECIMEN Ordering Facility: [facility] Address: [address] [address] Performed By: #### 1 9123-9, [id number], 98622-3 #### [facility] CLIA [id number] [place] [address] [place] Sodium [Moles/Vol] 141 mmol/L Normal 136-144 [facility] Comment on above: Order Comment: Speci men Type: BLOOD SPECIMEN Ordering Facility: [facility] Address: [address] [address] Performed By: #### 1 9123-9, [id number], 40142-2 #### [facility] CLIA [id number] [address] [place] [address] [place] Urea nitrogen [Mass/Vol] 12 mg/dL Normal 9-24 [facility] Comment on above: Order Comment: Speci men Type: BLOOD SPECIMEN Ordering Facility: [facility] Address: [address] [address] Performed By: #### 1 9123-9, [id number], 33522-4 #### [facility] CLIA [id number] [address] [place] [address] [place] ECG COMPLETEon 01-29-2023 ECG COMPLETE Ventricular Rate : 7 8 BPM Atrial Rate : 78 BPM P-R Interval : 160 ms QRS Duration : 122 ms Q-T Interval : 374 ms QTC Calculation(Bazett) : 426 ms Calculated P Streator : 64 degrees Calculated R Streator : 82 degrees Calculated T Streator : 49 degrees Sinus rhythm IVCD, consider atypical RBBB ST elevation suggests acute pericarditis Abnormal ECG no stemi Confirmed by BENITO MATHIS, ERIK ([id number]), online content editor SUZI BRUNO ([id number]) on 01/30/2023 10:18:17 AM NAME : GABRIELA VIDAL PID : [id number] : 1990 Gender : Male Race : ORD : [id number] Procedure Date : Jan 29 2023 12:34:12 Edit Date : Jan 30 2023 10:18:21 Diagnosis: Sinus rhythm IVCD, consider atypical RBBB ST elevation suggests acute pericarditis Abnormal ECG no stemi Confirmed by ERIK DAVIS MD ([id number]), online content editor SUZI BRUNO ([id number]) on 01/30/2023 10:18:17 AM Test Reason : Chest Pain Location : 18 : ED [id number] Overread By : ERIK DAVIS MD Edited By : SUZI BRUNO Referred By : , Acquired by : , [facility] ED NOTEon 01-29-2023 ED NOTE HNO ID: [id number] Author: Juliana Aguilera RN Service: Nursing Author Type: Registered Nurse Type: ED Notes Filed: 01/29/2023 2:59 PM Note Text: Discussed discharge instructions with pt including importance of follow up with PCP. Education provided including s/s to return to ER. Pt verbalized understanding. Pt resp even and unlabored with no s/s of distress noted. Pt able to speak in complete sentences without difficulty. All questions answered and pt denies any needs at this time. Pt ambulatory with steady gait on departure. [facility] ED NOTE HNO ID: [id number] Author: Juliana Aguilera RN Service: Nursing Author Type: Registered Nurse Type: ED Notes Filed: 01/29/2023 12:29 PM Note Text: Pt presents to the ED via EMS from radiology with c/o Syncope, head injury, and dehydration. Per EMS, pt was getting a Chest XR done for his R shoulder and for a cortisone shot. Pt stood up and fell. Hit back of head. No LOC. Pt states he hasn't ate in days and has no appetite. EMS placed 18 L AC with 1L NS. BS 106. Pt is AANDOx3, speaks clear and coherent sentences. Respirations unlabored and regular. Pt is ambulatory with a steady gait. Plan of care -Monitor Patient's Vital Signs for changes in condition -Monitor patient for changes in pain -Maintain patient safety and privacy -Provide comfort measures -Call light in place Siderails up, bed in locked and low position [facility] ED NOTE HNO ID: [id number] Author: Anabel Hernandez RN Service: ? Author Type: Registered Nurse Type: ED Notes Filed: 01/29/2023 12:23 PM Note Text: Bed: ED-13 Expected date: Expected time: Means of arrival: Comments: EMS [facility] ED PROV NOTEon 01-29-2023 ED PROV NOTE HNO ID: [id number] Author: Erik Davis MD Service: Emergency Medicine Author Type: Physician Type: ED Provider Notes Filed: 01/29/2023 3:34 PM Note Text: ED Provider Note Patient Name: Gabriela Vidal Jr. : 1990 SERVICE DATE: 01/29/23 History Patient presents with: Head Injury Dehydration Syncope 32 y/o male with past medical history of ADHD presents to the emergency department status post syncopal episode from outpatient appointment. Patient was getting an x-ray of his shoulder done and reports that when he stood up he felt dizzy and fell backwards hitting his head off the radiology equipment. Believes that he only lost consciousness for a few seconds. He denies any preceding chest pain or shortness of breath. He passed out once before when he got a tattoo. He has eaten some gummy bears today. He denies any headache, neck pain, numbness/tingling, nausea, vomiting, dizziness or weakness. Not on blood thinners. PAST MEDICAL HISTORY Diagnosis Date Adult ADHD 07/16/2014 Attention deficit disorder with hyperactivity(314.01) PAST SURGICAL HISTORY Procedure Laterality Date TONSILLECTOMY AND ADENOIDECTOMY T/A (under age 12 years) TONSILLECTOMY HX FAMILY HISTORY Problem Relation Age of Onset Hypertension Mother Cancer Father esophageal Social History Tobacco Use Smoking status: Every Day Packs/day: 1.00 Years: 4.00 Pack years: 4.00 Types: Cigarettes Smokeless tobacco: Never Vaping Use Vaping Use: Never used Substance and Sexual Activity Alcohol use: Not Currently Comment: 5 times a year Drug use: Yes Types: Marijuana Sexual activity: Not on file ALLERGIES No Known Allergies Review of Systems Constitutional: Negative. HENT: Negative. Eyes: Negative. Respiratory: Negative. Cardiovascular: Negative. Gastrointestinal: Negative. Endocrine: Negative. Genitourinary: Negative. Musculoskeletal: Negative. Skin: Negative. Allergic/Immunologic: Negative. Neurological: Positive for syncope. Hematological: Negative. Psychiatric/Behavioral: Negative. Physical Exam Vitals [01/29/23 1225] BP Pulse Temp Temp src Resp SpO2 Weight Height 101/61 76 36.6 ?C (97.9 ?F) Oral 16 98 % 79.4 kg (175 lb) -- Physical Exam Vitals and nursing note reviewed. Exam conducted with a truck shop supervisor present. Constitutional: General: He is not in acute distress. Appearance: Normal appearance. He is not ill-appearing or toxic-appearing. HENT: Head: Normocephalic and atraumatic. No raccoon eyes, Mosley's sign, abrasion or contusion. Comments: No hemotympanum or malocclusion Eyes: Extraocular Movements: Extraocular movements intact. Pupils: Pupils are equal, round, and reactive to light. Cardiovascular: Rate and Rhythm: Normal rate and regular rhythm. Heart sounds: Heart sounds not distant. No murmur heard. No friction rub. Pulmonary: Effort: Pulmonary effort is normal. Breath sounds: Normal breath sounds. Musculoskeletal: Cervical back: No spinous process tenderness or muscular tenderness. Right lower leg: No edema. Left lower leg: No edema. Skin: General: Skin is warm and dry. Capillary Refill: Capillary refill takes less than 2 seconds. Neurological: General: No focal deficit present. Mental Status: He is alert and oriented to person, place, and time. Cranial Nerves: No dysarthria or facial asymmetry. Sensory: Sensation is intact. Motor: Motor function is intact. Coordination: Eguirk-Vxxf-Bbnxgt Test normal. Gait: Gait is intact. Psychiatric: Mood and Affect: Mood normal. Speech: Speech normal. Behavior: Behavior normal. Diagnostic Testing ED Labs Ordered and Reviewed GLUCOSE, BLOOD (POC) - Abnormal; Notable for the following components: Result Value Ref Range Glucose, Point of Care 106 (*) 74 - 99 mg/dL All other components within normal limits COMP METABOLIC PANEL - Abnormal; Notable for the following components: Protein, Total 5.5 (*) 6.3 - 8.0 g/dL Albumin 3.6 (*) 3.9 - 4.9 g/dL Calcium, Total 8.4 (*) 8.5 - 10.2 mg/dL Glucose 115 (*) 74 - 99 mg/dL Chloride 108 (*) 97 - 105 mmol/L Anion Gap 7 (*) 9 - 18 mmol/L All other components within normal limits MAGNESIUM BLD - Normal HIGH SENSITIVITY TROPONIN T (INITIAL) - Normal HIGH SENSITIVITY TROPONIN T (SECOND) - Normal CBC + DIFF XR CHEST 2V FRONTAL/LAT Final Result IMPRESSION: No acute radiographic abnormality. Nuclear Fuel Processing Technician: PSCB Transcribe Date/Time: Jan 29 2023 1:19P Dictated by : DEVEN CHAPMAN MD This examination was interpreted and the report reviewed and electronically signed by: DEVEN CHAPMAN MD on Jan 29 2023 1:20PM EST Procedures ED Course / Clinical Impression ED Course as of 01/29/23 1534 Erik Velasquezwler's Documentation Mon Jan 29, 2023 1248 EKG Interpretation: RHYTHM: Normal sinus rhythm at 78 beats per minute AXIS: Normal axis INTERVALS: Normal DC interval QRS COMPLEX: Normal ST SE (more content not included)... Normal [facility] HIGH SENSITIVITY TROPONIN T (INITIAL)on 01-29-2023 HIGH SENSITIVITY SHEBA 7 ng/L Normal <12 [facility] Comment on above: Order Comment: Cristela ness Type: BLOOD SPECIMENOrdering Facility: [facility] Address: [address] [place] [address] Result Comment: When assessing risk for acute coronary syndromes: In patients undergoing blood draw greater than or equal to 2 hours from symptom onset, with history of very low to moderate risk and non-ischemic ECG, an initial hs-Troponin T less than 12 ng/L AND a 1 hour delta hs-Troponin T less than 3 ng/L should be considered very low risk for 30 day MACE. Performed By: #### 1 9123-9, [id number], [id number] ####[facility]ORY[facility]IA [id number] [address] HIGH SENSITIVITY TROPONIN T (SECOND)on 01-29-2023 HIGH SENSITIVITY SHEBA <6 Normal <12 [facility] Comment on above: Order Comment: Cristela ness Type: BLOOD SPECIMEN Ordering Facility: [facility] Address: [address] [place] [address] Result Comment: When assessing risk for acute coronary syndromes: In patients undergoing blood draw greater than or equal to 2 hours from symptom onset, with history of very low to moderate risk and non-ischemic ECG, an initial hs-Troponin T less than 12 ng/L AND a 1 hour delta hs-Troponin T less than 3 ng/L should be considered very low risk for 30 day MACE. Performed By: #### L [id number] #### [facility] CLIA [id number] [place] [id number] [place] Magnesium SerPl-mCncon 01-29 Magnesium [Mass/Vol] 1.9 mg/dL Normal 1.7-2.3 [facility] Comment on above: Order Comment: Speci men Type: BLOOD SPECIMENOrdering Facility: [facility] Address: [place] [address] Performed By: #### 1 9123-9, [id number], 42905-4 ####[facility]ORY[facility] [id number] [address] No Panel Informationon 01-29 IMPRESSION: Mild acromioclavicular degenerative changes. Nuclear Fuel Processing Technician: YAIMA Transcribe Date/Time: Jan 29 2023 2:37P Dictated by : BROOK NELSON MD This examination was interpreted and the report reviewed and electronically signed by: BROOK NELSON MD on Jan 29 2023 2:38PM [facility] DIVISION OF RADIOLOGY Radiology Study observation (narrative) [facility] No Panel InformationOrdered By: Ccf Provider on 01-29-2023 [facility] XR CHEST 2V FRONTAL/LATon XR CHEST 2V FRONTAL/LAT * * *Final Repor t* * * DATE OF EXAM: Jan 29 2023 1:09PM [id number] - XR CHEST 2V FRONTAL/LAT / PROCEDURE REASON: Chest pain, nonspecific * * * * Physician Interpretation * * * * EXAMINATION: CHEST RADIOGRAPH (2 VIEW FRONTAL and LATERAL, 3 images) CLINICAL HISTORY: Chest pain, nonspecific MQ: XC2_6 EXAM DATE/TIME: 01/29/2023 1:09 PM COMPARISON: 05/17/2020 chest x-ray, 08/02/[address] RESULT: Lines, tubes, and devices: None. Lungs and pleura: No consolidation. No lung mass. No pleural effusion. No pneumothorax. Cardiomediastinal silhouette: Normal cardiomediastinal silhouette. Bones and soft tissues: Unremarkable. IMPRESSION: No acute radiographic abnormality. Nuclear Fuel Processing Technician: YAIMA Transcribe Date/Time: Jan 29 2023 1:19P Dictated by : DEVEN CHAPMAN MD This examination was interpreted and the report reviewed and electronically signed by: DEVEN CHAPMAN MD on Jan 29 2023 1:20PM EST [id number] [facility] XR SHLDR >/=3V AP/ALESSANDRO AP/OTH R LTon 01-29-2023 XR SHLDR >/=3V AP/ALESSANDRO AP/OTHR LT * * *Final Report* * * DATE OF EXAM: Jan 29 2023 12:17PM [id number] [id number] - XR SHLDR >/=3V AP/ALESSANDRO AP/OTHR LT / PROCEDURE REASON: Pain * * * * Physician Interpretation * * * * EXAMINATION: XR SHLDR >/=3V AP/ALESSANDRO AP/OTHR RT, XR SHLDR >/=3V AP/ALESSANDRO AP/OTHR LT HISTORY: bilateral shoulder pain no injury Pain . TECHNIQUE: XR SHLDR >/=3V AP/ALESSANDRO AP/OTHR RT, XR SHLDR >/=3V AP/ALESSANDRO AP/OTHR LT Laterality: RIGHT (accession [id number]), LEFT (accession [id number]) Number of different views (projections): 3 M: XB_1 COMPARISON: RESULT: Mild acromioclavicular degenerative changes bilaterally. Maintained glenohumeral joints bilaterally. Imaged lungs appear to be clear. No acute fracture or dislocation. There are no bony erosions. IMPRESSION: Mild acromioclavicular degenerative changes. Nuclear Fuel Processing Technician: PSCB Transcribe Date/Time: Jan 29 2023 2:37P Dictated by : BROOK NELSON MD This examination was interpreted and the report reviewed and electronically signed by: BROOK NELSON MD on Jan 29 2023 2:38PM EST [id number] [facility] XR SHLDR >/=3V AP/ALESSANDRO AP/OTH R RTon 01-29-2023 XR SHLDR >/=3V AP/ALESSANDRO AP/OTHR RT * * *Final Report* * * DATE OF EXAM: Jan 29 2023 12:17PM SHX 5253 - XR SHLDR >/=3V AP/ALESSANDRO AP/OTHR RT / PROCEDURE REASON: Pain * * * * Physician Interpretation * * * * EXAMINATION: XR SHLDR >/=3V AP/ALESSANDRO AP/OTHR RT, XR SHLDR >/=3V AP/ALESSANDRO AP/OTHR LT HISTORY: bilateral shoulder pain no injury Pain . TECHNIQUE: XR SHLDR >/=3V AP/ALESSANDRO AP/OTHR RT, XR SHLDR >/=3V AP/ALESSANDRO AP/OTHR LT Laterality: RIGHT (accession [id number]), LEFT (accession [id number]) Number of different views (projections): 3 M: XB_1 COMPARISON: RESULT: Mild acromioclavicular degenerative changes bilaterally. Maintained glenohumeral joints bilaterally. Imaged lungs appear to be clear. No acute fracture or dislocation. There are no bony erosions. IMPRESSION: Mild acromioclavicular degenerative changes. Nuclear Fuel Processing Technician: [facility] Transcribe Date/Time: Jan 29 2023 2:37P Dictated by : BROOK NELSON MD This examination was interpreted and the report reviewed and electronically signed by: BROOK NELSON MD on Jan 29 2023 2:38PM EST [id number] Normal [facility] XR Shoulder - left 3 Viewson 01-29-2023 * * *Final Report* * * DATE OF EXAM: Jan 29 2023 12:17PM SHX 5252 - XR SHLDR >/=3V AP/ALESSANDRO AP/OTHR LT / PROCEDURE REASON: Pain * * * * Physician Interpretation * * * * EXAMINATION: XR SHLDR >/=3V AP/ALESSANDRO AP/OTHR RT, XR SHLDR >/=3V AP/ALESSANDRO AP/OTHR LT HISTORY: bilateral shoulder pain no injury Pain . TECHNIQUE: XR SHLDR >/=3V AP/ALESSANDRO AP/OTHR RT, XR SHLDR >/=3V AP/ALESSANDRO AP/OTHR LT Laterality: RIGHT (accession [id number]), LEFT (accession [id number]) Number of different views (projections): 3 M: XB_1 COMPARISON: RESULT: Mild acromioclavicular degenerative changes bilaterally. Maintained glenohumeral joints bilaterally. Imaged lungs appear to be clear. No acute fracture or dislocation. There are no bony erosions. DIVISION OF RADIOLOGY Provider, [facility] - 01/29/2023 * * *Final Report* * * DATE OF EXAM: Jan 29 2023 12:17PM SHX 5252 - XR SHLDR >/=3V AP/ALESSANDRO AP/OTHR LT / PROCEDURE REASON: Pain * * * * Physician Interpretation * * * * EXAMINATION: XR SHLDR >/=3V AP/ALESSANDRO AP/OTHR RT, XR SHLDR >/=3V AP/ALESSANDRO AP/OTHR LT HISTORY: bilateral shoulder pain no injury Pain . TECHNIQUE: XR SHLDR >/=3V AP/ALESSANDRO AP/OTHR RT, XR SHLDR >/=3V AP/ALESSANDRO AP/OTHR LT Laterality: RIGHT (accession [id number]), LEFT (accession [id number])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 Patient Name: GABRIELA VIDAL Jr Diagnostic Radiology Exam Date/Time 02/08/2018 11:55:40 EDT Exam CR Abdomen Series w/ Chest 1 View Ordering Physician DO GONCALVES KIMBERLY D. Accession Number [id number] CPT4 Codes 68448 () Reason For Exam abdominal pain and distension Report Clinical indications: Chronic left flank and groin pain, lower abdominal pain Findings: Three views are submitted for interpretation. There are no prior exams for comparison. The frontal chest radiograph demonstrates an unremarkable cardiomediastinal silhouette. The lungs appear clear bilaterally. There is no gross evidence of pleural fluid accumulation. There is no evidence of consolidative change or active interstitial process. No evidence of free air is identified under either hemidiaphragm. Flat and upright abdominal films demonstrate a normal amount of gas and stool within the colon. There are no dilated loops of small bowel or air-fluid levels present. No free air is seen within the peritoneal cavity. No unusual calcifications are identified. Impression: No radiographic evidence of active cardiopulmonary process, obstruction, perforation or ileus. Report Dictated on Final Dictated: 02/08/2018 1:03 pm Dictating Physician: MD GUTIERREZ RUSSELL Signed Date and Time: 02/08/2018 1:03 pm Signed by: MD GUTIERREZ RUSSELL Transcribed Date and Time: 02/08/2018 1:03 Normal [facility] Comp Metabolic Panelon 02-08 Calcium 9.2 mg/dL Normal 8.4-10.4 [facility] Comment on above: Performed By: #### H ROBERT GUERRERO3 ####[facility] [place] [address] Alanine aminotransferase (ALT) 19 U/L Normal 13-69 [facility] Comment on above: Performed By: #### H ROBERT GUERRERO3 ####[facility] [place] [address] Alkaline phosphatase (ALP) 45 U/L Normal 38-126 [facility] Comment on above: Performed By: #### H YOLANDA CMP3 ####[id number] [place] [address] Anion gap 9 Normal [facility] Comment on above: Performed By: #### H YOLANDA CMP3 ####[id number] [place] [address] Aspartate aminotransferase (AST) 22 U/L Normal 15-46 [facility] Comment on above: Performed By: #### H YOLANDA CMP3 ####[address] [place] [address] Bilirubin (total) 0.5 mg/dL Normal 0.2-1.3 [facility] Comment on above: Performed By: #### H YOLANDA CMP3 ####[address] [place] [address] CO2 28 mmol/L Normal 22-30 [facility] Comment on above: Performed By: #### H YOLANDA CMP3 ####[address] [place] [address] Creatinine 1.19 mg/dL Normal 0.52-1.25 [facility] Comment on above: Performed By: #### H YOLANDA CMP3 ####[address] [place] [address] eGFR (black) mL/min/{1.73_m2} Normal >60 [facility] Comment on above: Performed By: #### H YOLANDA CMP3 ####[address] [place] [address] eGFR (non-black) mL/min/{1.73_m2} Normal >60 [facility] Comment on above: Result Comment: Sour ce- MDRD equation with creatinine calibration to IDMS(NKDEP) eGFR not recommended for drug dose adjustment Performed By: #### H YOLANDA CMP3 ####[address] [place] [address] Glucose mass conc 98 mg/dL Normal 70-100 [facility] Comment on above: Performed By: #### Larry GUERRERO CMP3 ####[address] [place] [address] Protein 6.9 g/dL Normal 6.3-8.2 [facility] Comment on above: Performed By: #### H YOLANDA CMP3 ####[id number] [place] [address] Urea nitrogen 10 mg/dL Normal 7-20 [facility] Comment on above: Performed By: #### H YOLANDA CMP3 ####[address] [place] [address] Potassium molar conc 4.2 mmol/L Normal 3.5-5.1 [facility] Comment on above: Performed By: #### H YOLANDA CMP3 ####[address] [place] [address] Albumin 4.2 g/dL Normal 3.5-5.0 [facility] Comment on above: Performed By: #### H YOLANDA CMP3 ####[address] [place] [address] Chloride 106 mmol/L Normal 98-107 [facility] Comment on above: Performed By: #### H YOLANDA CMP3 ####[address] [place] [address] Sodium 144 mmol/L Normal 137-145 [facility] Comment on above: Performed By: #### H YOLANDA CMP3 ####[address] [place] [address] Hemogram w/ Autodiffon 02-08 Abs Baso Cnt 0.0 10*3/uL Normal 0.0-0.2 [facility] Comment on above: Performed By: #### H YOLANDA CMP3 ####[address] [place] [address] Abs Neutrophile Cnt 4.4 10*3/uL Normal 1.8-7.0 [facility] Comment on above: Performed By: #### H YOLANDA CMP3 ####[address] [place] [address] Basophils/100 WBC Auto (Bld) 0.5 % Normal 0.0-2.0 [facility] Comment on above: Performed By: #### H YOLANDA CMP3 ####[address] [place] [address] Eosinophils 0.2 10*3/uL Normal 0.0-0.5 [facility] Comment on above: Performed By: #### H YOLANDA CMP3 ####[id number] [place] [address] Eosinophils/100 leukocytes 2.5 % Normal 1.0-6.0 [facility] Comment on above: Performed By: #### H YOLANDA CMP3 ####[address] [address] Erythrocyte distribution width Auto Ratio (RBC) 13.0 % Normal 11.5-14.5 [facility] Comment on above: Performed By: #### H YOLANDA CMP3 ####[address] [address] Erythrocytes (RBC) 5.31 10*6/uL Normal 4.40-5.90 [facility] Comment on above: Performed By: #### H YOLANDA CMP3 ####[address] [address] Granulocytes/100 WBC (Bld) 54.6 % Normal 40.0-80.0 [facility] Comment on above: Performed By: #### H YOLANDA CMP3 ####[address] [address] Hematocrit (HCT) 48.8 % Normal 40.0-52.0 [facility] Comment on above: Performed By: #### H YOLANDA CMP3 ####[address] [address] Hemoglobin mass conc (Bld) 16.7 g/dL Normal 13.0-18.0 [facility] Comment on above: Performed By: #### H YOLANDA CMP3 ####[address] [address] Lymphocytes 2.6 10*3/uL Normal 1.0-4.3 [facility] Comment on above: Performed By: #### H EMDF CMP3 ####[address] [address] Lymphocytes/100 leukocytes 32.5 % Normal 20.0-40.0 [facility] Comment on above: Performed By: #### H YOLANDA CMP3 ####[facility] [place] [address] MCH 31.4 pg Normal 26.0-34.0 [facility] Comment on above: Performed By: #### H YOLANDA CMP3 ####[id number] [place] [address] MCHC mass conc (RBC) 34.2 % Normal 32.0-36.0 [facility] Comment on above: Performed By: #### H YOLANDA CMP3 ####[id number] [place] [address] MCV 91.8 fL Normal 80.0-98.0 [facility] Comment on above: Performed By: #### H YOLANDA CMP3 ####[id number] [place] [address] Monocytes 0.8 10*3/uL Normal 0.0-0.8 [facility] Comment on above: Performed By: #### H YOLANDA CMP3 ####[address] [place] [address] Monocytes/100 leukocytes 9.9 % Normal 2.0-10.0 [facility] Comment on above: Performed By: #### H YOLANDA CMP3 ####[id number] [place] [address] Platelet mean volume (PMV) 10.2 fL Normal 7.4-10.4 [facility] Comment on above: Performed By: #### H YOLANDA CMP3 ####[id number] [place] [address] Platelets 195 10*3/uL Normal 140-440 [facility] Comment on above: Performed By: #### H YOLANDA CMP3 ####[id number] [place] [address] WBC (Leukocytes) 8.0 10*3/uL Normal 3.6-10.7 [facility] Comment on above: Performed By: #### H YOLANDA CMP3 ####[id number] [place] [address] Urinalysis,Macroon 8 Appearance Clear Normal Clear [facility] Comment on above: Performed By: #### U AMAC, UAMIC ####[facility] [place] [address] Bilirubin,Ur 1 + Normal Negative [facility] Comment on above: Performed By: #### U AMAC, UAMIC ####[facility] [place] [address] Color Yellow Normal Lt. Yellow [facility] Comment on above: Performed By: #### U AMAC, UAMIC ####[facility] [place] [address] Ketone,Urine Negative Normal Negative [facility] Comment on above: Performed By: #### U AMAC, UAMIC ####[id number] [place] [address] Leukocytes Negative Normal Negative [facility] Comment on above: Performed By: #### U AMAC, UAMIC ####[id number] [place] [address] Nitrites Negative Normal Negative [facility] Comment on above: Performed By: #### U AMAC, UAMIC ####[facility] [place] [address] Occult Blood,Ur Negative Normal Negative [facility] Comment on above: Performed By: #### U AMAC, UAMIC ####[facility] [place] [address] Specific [place],Urine 1.020 Normal 1.005-1.030 [facility] Comment on above: Performed By: #### U AMAC, UAMIC ####[facility] [place] [address] Total Protein,Urine Negative Normal Negative [facility] Comment on above: Performed By: #### U AMAC, UAMIC ####[facility] [place] [address] Urine, glucose presence NEG (Normal) Normal Negative [facility] Comment on above: Performed By: #### U AMAC, UAMIC ####[id number] [place] [address] Urine, pH 6.5 Normal 5.0-8.0 [facility] Comment on above: Performed By: #### U AMAC, UAMIC ####[address] [place] [address] Urobilinogen Normal (0.2) Normal 0-1 [facility] Comment on above: Performed By: #### U AMAC, UAMIC ####[facility] [place] [address] Urinalysis,Microscopicon Amorphous Urates Moderate (6-50) Normal Negative [facility] Comment on above: Performed By: #### U AMAC, UAMIC ####[id number] [place] [place] [address] Bacteria Few (1-5) Normal Negative [facility] Comment on above: Performed By: #### U AMAC, UAMIC ####[id number] [place] [address] Ca Oxylate Crystals Few (1-5) Normal Negative [facility] Comment on above: Performed By: #### U AMAC, UAMIC ####[id number] [place] [address] Epithelial Cells Negative Normal 3-5 [facility] Comment on above: Performed By: #### U AMAC, UAMIC ####[id number] [place] [address] Urine, erythrocytes in sediment by area Negative Normal 0-2 [facility] Comment on above: Performed By: #### U AMAC, UAMIC ####[id number] [place] [address] Urine, leukocytes in sedmiment 0 - 2 Normal 0-5 [facility] Comment on above: Performed By: #### U AMAC, UAMIC ####[address] [place] [address] Volume,Urine 12 ml Normal [facility] Comment on above: Performed By: #### U AMAC, UAMIC ####[address] [place] [address] Vital Signs Date Time Vital Sign Value Performing Clinician Facility 01-07-2025 09:57-0400 Body temperature 97.3 [degF] Shania Vieira [employer] Work Phone: [facility] 01-07-2025 09:57-0400 Diastolic blood pressure 99 mm[Hg] Shania Queden [employer] Work Phone: [facility] 01-07-2025 09:57-0400 Heart rate 90 /min Shania Queden [employer] Work Phone: [facility] 01-07-2025 09:57-0400 Respiratory rate 16 /min Shania Queden [employer] Work Phone: [facility] 01-07-2025 09:57-0400 SaO2% (BldA) [Mass fraction] 99 % Shania Queden [employer] Work Phone: [facility] 01-07-2025 09:57-0400 Systolic blood pressure 101 mm[Hg] Shania Queden [employer] Work Phone: [facility] 01-07-2025 08:42-0400 Body height 175.26 cm Shania Queden [employer] Work Phone: [facility] 01-07-2025 08:42-0400 Body mass index (BMI) [Ratio] 27.1 kg/m2 Shania Queden [employer] Work Phone: [facility] 01-07-2025 08:42-0400 Body weight 83.41 kg Shania Queden [employer] Work Phone: [facility] 01-15-2024 14:37-0400 Body height 177.8 cm Shania Queden RAIL MANAGER.AUTOMOTIVE SERVICE PROFESSIONAL Work Phone: [facility] 01-15-2024 14:37-0400 Body mass index (BMI) [Ratio] 24.54 kg/m2 Shania Queden RAIL MANAGER.AUTOMOTIVE SERVICE PROFESSIONAL Work Phone: [facility] 01-15-2024 14:37-0400 Body temperature 97.9 [degF] Shania Queden RAIL MANAGER.AUTOMOTIVE SERVICE PROFESSIONAL Work Phone: [facility] 01-15-2024 14:37-0400 Body weight 77.56 kg Shania Queden RAIL MANAGER.AUTOMOTIVE SERVICE PROFESSIONAL Work Phone: [facility] 01-15-2024 14:37-0400 Diastolic blood pressure 62 mm[Hg] Shania Queden RAIL MANAGER.AUTOMOTIVE SERVICE PROFESSIONAL Work Phone: [facility] 01-15-2024 14:37-0400 Heart rate 98 /min Shania Queden RAIL MANAGER.AUTOMOTIVE SERVICE PROFESSIONAL Work Phone: [facility] 01-15-2024 14:37-0400 Respiratory rate 18 /min Shania Queden RAIL MANAGER.AUTOMOTIVE SERVICE PROFESSIONAL Work Phone: [facility] 01-15-2024 14:37-0400 SaO2% (BldA) [Mass fraction] 99 % Shania Queden RAIL MANAGER.AUTOMOTIVE SERVICE PROFESSIONAL Work Phone: [facility] 01-15-2024 14:37-0400 Systolic blood pressure 122 mm[Hg] Shania Queden RAIL MANAGER.AUTOMOTIVE SERVICE PROFESSIONAL Work Phone: [facility] 09-29-2023 06:49-0500 Body temperature 97.8 [degF] [facility] 09-29-2023 06:49-0500 Diastolic blood pressure 72 mm[Hg] [facility] 09-29-2023 06:49-0500 Heart rate 71 /min [facility] 09-29-2023 06:49-0500 Respiratory rate 16 /min [facility] 09-29-2023 06:49-0500 SaO2% (BldA) [Mass fraction] 98 % [facility] 09-29-2023 06:49-0500 Systolic blood pressure 122 mm[Hg] [facility] 09-28-2023 17:12-0500 Body height 177.8 cm [facility] 09-28-2023 17:12-0500 Body mass index (BMI) [Ratio] 26.5 kg/m2 [facility] 09-28-2023 17:12-0500 Body weight 83.91 kg [facility] 04-09-2023 10:29-0400 Body height 177.8 cm Gilda Zavala RAIL MANAGER.AUTOMOTIVE SERVICE PROFESSIONAL Work Phone: [facility] 04-09-2023 10:29-0400 Body temperature 97.81 [degF] Gilda Trill RAIL MANAGER.AUTOMOTIVE SERVICE PROFESSIONAL Work Phone: [facility] 04-09-2023 10:29-0400 Body weight 82.1 kg Gilda Trill RAIL MANAGER.AUTOMOTIVE SERVICE PROFESSIONAL Work Phone: [facility] 04-09-2023 10:29-0400 Diastolic blood pressure 76 mm[Hg] Gilda Trill RAIL MANAGER.AUTOMOTIVE SERVICE PROFESSIONAL Work Phone: [facility] 04-09-2023 10:29-0400 Heart rate 92 /min Gilda Trill RAIL MANAGER.AUTOMOTIVE SERVICE PROFESSIONAL Work Phone: [facility] 04-09-2023 10:29-0400 SaO2% (BldA) [Mass fraction] 93 % Gilda Trill RAIL MANAGER.AUTOMOTIVE SERVICE PROFESSIONAL Work Phone: [facility] 04-09-2023 10:29-0400 Systolic blood pressure 120 mm[Hg] Gilda Trill RAIL MANAGER.AUTOMOTIVE SERVICE PROFESSIONAL Work Phone: [facility] 12-29-2022 16:55-0400 Body height 177.8 cm Shania Queden RAIL MANAGER.AUTOMOTIVE SERVICE PROFESSIONAL Work Phone: [facility] 12-29-2022 16:55-0400 Body temperature 97.9 [degF] Shania Queden RAIL MANAGER.AUTOMOTIVE SERVICE PROFESSIONAL Work Phone: [facility] 12-29-2022 16:55-0400 Body weight 79.83 kg Shania Queden RAIL MANAGER.AUTOMOTIVE SERVICE PROFESSIONAL Work Phone: [facility] 12-29-2022 16:55-0400 Diastolic blood pressure 74 mm[Hg] Shania Queden RAIL MANAGER.AUTOMOTIVE SERVICE PROFESSIONAL Work Phone: [facility] 12-29-2022 16:55-0400 Heart rate 91 /min Shania Queden RAIL MANAGER.AUTOMOTIVE SERVICE PROFESSIONAL Work Phone: [facility] 12-29-2022 16:55-0400 SaO2% (BldA) [Mass fraction] 97 % Shania Vieira RAIL MANAGER.AUTOMOTIVE SERVICE PROFESSIONAL Work Phone: [facility] 12-29-2022 16:55-0400 Systolic blood pressure 120 mm[Hg] Shania Vieira RAIL MANAGER.AUTOMOTIVE SERVICE PROFESSIONAL Work Phone: [facility] 12-12-2022 00:10-0400 Diastolic blood pressure 77 mm[Hg] No Pcp Required [facility] Other Phone (unformatted): [place] 12-12-2022 00:10-0400 Heart rate 96 /min No Pcp Required [facility] Other Phone (unformatted): [phone] 12-12-2022 00:10-0400 Respiratory rate 18 /min No Pcp Required [facility] Other Phone (unformatted): [phone] 12-12-2022 00:10-0400 SaO2% (BldA) [Mass fraction] 100 % No Pcp Required [facility] Other Phone (unformatted): [phone] 12-12-2022 00:10-0400 Systolic blood pressure 113 mm[Hg] No Pcp Required [facility] Other Phone (unformatted): [phone] 2022 22:57-0400 Body height 180.3 cm No Pcp Required [facility] Other Phone (unformatted): [phone] 2022 22:57-0400 Body temperature 96.8 [degF] No Pcp Required [facility] Other Phone (unformatted): [phone] 2022 22:57-0400 Body weight 84 kg No Pcp Required [facility] Other Phone (unformatted): [phone] 05-18-2019 15:46-0400 BMI (Body Mass Index) 26.54 kg/m2 [facility], [place] 05-18-2019 15:46-0400 Body Temperature 98.6 [degF] [facility], [place] 05-18-2019 15:46-0400 Body weight 83.92 kg [place], [place] 05-18-2019 15:46-0400 BP Diastolic 79 mm[Hg] [place] 05-18-2019 15:46-0400 BP Systolic 118 mm[Hg] [place] 05-18-2019 15:46-0400 Pulse (Heart Rate) 94 /min [place] 05-18-2019 15:46-0400 Pulse Oximetry 99 % [place] 05-18-2019 15:46-0400 Respiratory Rate 20 /min [facility] [place] Encounters Encounter Date Encounter Type Care Provider Facility Start: 01-12-2025 End: 01-12-2025 ambulatory Shania Vieira RAIL MANAGER.AUTOMOTIVE SERVICE PROFESSIONAL Work Phone: [facility] Start: 01-12-2025 End: 01-12-2025 Follow-up encounter Shania Vieira RAIL MANAGER.AUTOMOTIVE SERVICE PROFESSIONAL Work Phone: [facility] Comment on above: ED Follow-up ([facility] 01/07/2025) Start: 01-07-2025 End: 01-07-2025 Emergency department patient visit Shania Vieira [employer] Work Phone: -Emergency Department Work Phone: Start: 04-21-2024 End: 04-23-2024 Patient Outreach Estephania Lemos APPLICATION SOFTWARE DEVELOPER [facility] Comment on above: Transition Of Care ( Pt was admitted to [facility] on 04/18/2024 for ISABELLA, COVID-19. Pt was d/c on 04/19/2024) Start: 04-18-2024 ambulatory Shania Vieira [employer] Facil ity:[facility] Start: 04-18-2024 End: 04-19-2024 Evaluation and management of inpatient Shania Vieira [employer]ER HAND Facility:[facility] Start: 04-17-2024 End: 04-17-2024 Emergency department patient visit Shania Vieira ED[employer] B[employer]ER HAND Facility:[facility] Start: 01-28-2024 Telephone encounter Shania Vieira RAIL MANAGER.AUTOMOTIVE SERVICE PROFESSIONAL Work Phone: [facility] Comment on above: Consult Start: 01-15-2024 End: 01-15-2024 Patient encounter procedure Shania Vieira RAIL MANAGER.AUTOMOTIVE SERVICE PROFESSIONAL Work Phone: [facility] Comment on above: Schizoaffective diso rder, unspecified type (HCC) (Primary Dx); Adult ADHD; Auditory hallucinations; Acute psychosis (HCC); Marijuana use; Financial difficulties; Acute pain of left shoulder; Living in temporary quarters Start: 12-21-2023 Telephone encounter Shania Vieira APRN.AUTOMOTIVE SERVICE PROFESSIONAL Work Phone: [facility] Comment on above: Appointment Start: 12-17-2023 ambulatory Estephania Lemos LPN [facility] Start: 10-02-2023 ambulatory Humera Gillis [facility] Comment on above: ed outreach (Ed outr each/09/28/2023/[facility] ) Start: 09-28-2023 End: 09-29-2023 Emergency department patient visit [facility]-Emergency Department Work Phone: Start: 07-03-2023 ambulatory Shania sherman APRN.AUTOMOTIVE SERVICE PROFESSIONAL Work Phone: [facility] Comment on above: ED Outreach ([facility] 07/01/23) Start: 05-17-2023 ambulatory Shanae Bustamante [facility] Start: 04-11-2023 ambulatory Humera Gillis [facility] Comment on above: ED outreach (ED outr each /[facility] /04/07/2023 ) Start: 04-09-2023 End: 04-09-2023 Patient encounter procedure Gilda Zavala APRN.AUTOMOTIVE SERVICE PROFESSIONAL Work Phone: [facility] Comment on above: Cellulitis of right lower leg (Primary Dx); Itching Start: 01-29-2023 End: 01-29-2023 Emergency department patient visit SHANIA VIEIRA Facility:[facility] Start: 01-29-2023 End: 01-29-2023 ambulatory SHANIA VIEIRA Facility:[facility] Start: 01-29-2023 End: 01-29-2023 Subsequent hospital visit by physician [facility] Comment on above: Pain [R52] Start: 01-18-2023 Orders Only Humera Hernandez bobby RAIL MANAGER.AUTOMOTIVE SERVICE PROFESSIONAL Work Phone: [facility] [place] Comment on above: Pain (Primary Dx) Start: 01-01-2023 Telephone encounter Shania Vieira RAIL MANAGER.AUTOMOTIVE SERVICE PROFESSIONAL Work Phone: [facility] Comment on above: Results Start: 12-29-2022 End: 12-29-2022 Patient encounter procedure Shania Vieira RAIL MANAGER.AUTOMOTIVE SERVICE PROFESSIONAL Work Phone: [facility] Comment on above: Dysuria (Primary Dx) ; Exposure to STD Start: 2022 End: 12-12-2022 Emergency department patient visit Damion Perdue [facility] Other Phone (unformatted): [phone] Start: 08-24-2022 ambulatory Shania Byrned en RAIL MANAGER.AUTOMOTIVE SERVICE PROFESSIONAL Work Phone: [facility] Start: 08-24-2022 Follow-up encounter Shania Vieira RAIL MANAGER.AUTOMOTIVE SERVICE PROFESSIONAL Work Phone: [facility] Comment on above: ED Follow Up ([facility] discharge 08/21/2022 ED outreach ) Start: 01-06-2022 ambulatory Shania Byrned en RAIL MANAGER.AUTOMOTIVE SERVICE PROFESSIONAL Work Phone: [facility] Start: 05-18-2019 End: 05-18-2019 Emergency department patient visit [facility] ED Comment on above: Encounter for wound re-check (Primary Dx) Start: 02-08-2018 Emergency department patient visit Torrie Goncalves [facility] Procedures Date Procedure Procedure Detail Performing Clinician Start: 09-28-2023 Coronavirus COVID-19 PCR Start: 01-29-2023 Radex shoulder compl ete minimum 2 views Humera Martinez Meredith RAIL MANAGER.AUTOMOTIVE SERVICE PROFESSIONAL Work Phone: Start: 12-29-2022 Urnls dip stick/tabl et rgnt auto w/o microscopy Shania Vieira RAIL MANAGER.AUTOMOTIVE SERVICE PROFESSIONAL Work Phone: Start: 08-24-2020 Adult depression scr eening assessment Shania Vieira RAIL MANAGER.AUTOMOTIVE SERVICE PROFESSIONAL Work Phone: Plan of Treatment Date Care Activity Detail Author Start: 07-01-2033 Urine microalbumin profile DTaP,Tdap,Td Vaccine (8 - Td or Tdap) [facility] Start: 03-30-2025 Influenza vaccination Influenz a Vaccine (Season Ended) [facility] Start: 03-30-2024 Covid-19 Vaccine ( season) Covid-19 Vaccine ( season) [facility] Start: 03-30-2024 Covid-19 Vaccine ( season) Covid-19 Vaccine () [facility] Start: 03-30-2024 Influenza vaccination [facility] Start: 02-20-2024 End: 02-20-2024 Patient encounter procedure 02/20/2024 2:00 PM EDT Office Visit Orthopaedics [address] [address] Gisella De Santiago DO [address] [place] [address] shoulder pain, bycicle incident 01/02/24 [facility] Comment on above: shoulder pain, bycic le incident 01/02/24 [facility] Start: 01-15-2024 End: 01-15-2024 Patient encounter procedure 01/15/2024 2:20 PM EDT Office Visit [facility] [address] [place] [address] Shania Vieira APRN.AUTOMOTIVE SERVICE PROFESSIONAL [address] [place] [address] est casre [facility] Comment on above: est casre Start: 12-30-2023 COVID-19 VACCINE (#1) COVID-19 VACCI NE (#1) [facility] Comment on above: Postponed from 06/13 (Declined at this time) Start: 12-12-2023 Lipid panel Lipid Screening [facility] Start: 09-29-2023 [facility] Start: 09-28-2023 Suicide precautions [facility] Start: 07-30-2023 Behavioral Health Screening Behavioral Health Screening [facility] Start: 07-30-2023 Depression Assessment Depression Ass [facility] Start: 07-29-2023 Depression Assessment Depression Ass [facility] Comment on above: Postponed from 07/30 (Declined at this time) Start: 03-30-2023 Covid-19 Vaccine () Covid-19 Vaccine () [facility] Start: 03-30-2023 Influenza vaccination [facility] Start: 12-29-2022 End: 02-28-2023 SYPHILIS TOTAL W/REFLEX SYPHILIS TOTAL W/REFLEX Lab Routine Exposure to STD Expected: 12/29/2022, Expires: 02/28/2023 [facility] Work Phone: Comment on above: Expected: 12/29/2022 , Expires: 02/28/2023 Start: 07-30-2022 DEPRESSION ASSESSMENT DEPRESSION ASS [facility] Start: 03-30-2022 Influenza vaccination [facility] Start: 08-24-2021 Adult depression screening assessment DEPRESSION SCREENING [facility] Start: 11-11-2020 Urine microalbumin profile [facility] Start: 03-30-2019 Influenza vaccination Flu vaccine (# 1) [place] Start: 12-12-2007 Pneumococcal vaccination Pneumococcal Vaccine (1 of 2 - PCV) [facility] Start: 12-12-2007 Urine microalbumin profile DTAP,TDAP,TD (1 - Tdap) [facility] Start: 2006 Anxiety Screening Anxiety Screening [facility] Start: 2006 Depression Screening Depression Scre ening [facility] Start: 2006 HEPATITIS C SCREENING HEPATITIS C [facility] Start: 2006 Hepatitis C screening Hepatitis C [facility] Start: 2006 HIV SCREENING HIV SCREENING [facility] Start: 2006 HIV screening HIV Screening [facility] Start: 1994 PNEUMOCOCCAL (1 - PCV) PNEUMOCOCCAL (1 - PCV) [facility] Start: 1994 Pneumococcal vaccination [facility] Start: 1993 COVID-19 VACCINE (#1) COVID-19 VACCI NE (#1) [facility] Start: 06-13-1989 COVID-19 VACCINE (#1) COVID-19 VACCI NE (#1) [facility] Start: 1988 HEPATITIS B (1 of 3 - 3-dose series) HEPATITIS B (1 of 3 - 3-dose series) [facility] Chlamydia trachomatis+Neisseria gonorrhoeae DNA [Presence] in Urine by CARLOS with probe detection GC/CHLAMYDIA AMPLIF, URINE Microbiology Routine Exposure to STD 12/29/2022 5:06 PM EDT [facility] Work Phone: Patient Education ED Cellulitis [facility] Work Phone: Patient referral [facility] Work Phone: T VAGINALIS AMPLIFICATION T VAGINALIS AMPLIFICATION Lab Routine Exposure to STD 12/29/2022 5:02 PM EDT [facility] Work Phone: UA DIP, URINE (POC) UA DIP, URIN E (POC) Lab Routine Dysuria Ordered: 12/29/2022 [facility] Work Phone: Comment on above: Ordered: 12/29/2022 End: 02-17-2024 XR SHOULDER GENERAL 3V OR MORE AP/TRUE AP/OTHER LEFT XR SHOULDER GENERAL 3V OR MORE AP/TRUE AP/OTHER LEFT Radiology Routine Pain 1 Occurrences starting 01/18/2023 until 02/17/2024 [facility] Work Phone: Comment on above: 1 Occurrences starti ng 01/18/2023 until 02/17/2024 End: 02-17-2024 XR SHOULDER GENERAL 3V OR MORE AP/TRUE AP/OTHER RIGHT XR SHOULDER GENERAL 3V OR MORE AP/TRUE AP/OTHER RIGHT Radiology Routine Pain 1 Occurrences starting 01/18/2023 until 02/17/2024 [facility] Work Phone: Comment on above: 1 Occurrences starti ng 01/18/2023 until 02/17/2024 [facility] c Immunizations Immunization Date Immunization Notes Care Provider Igor escobedo 07-01-2023 tetanus toxoid, redu mag diphtheria toxoid, and acellular pertussis vaccine, adsorbed Shania Queden RAIL MANAGER.AUTOMOTIVE SERVICE PROFESSIONAL Work Phone: [facility] 11-11-2010 tetanus toxoid, redu mag diphtheria toxoid, and acellular pertussis vaccine, adsorbed Shania Queden RAIL MANAGER.AUTOMOTIVE SERVICE PROFESSIONAL Work Phone: [facility] 06-03-2009 novel Influenza-H1N1 -09, live virus for nasal administration Shania Queden RAIL MANAGER.AUTOMOTIVE SERVICE PROFESSIONAL Work Phone: [facility] 06-03-2009 influenza virus vacc ine, unspecified formulation Humera Gillis MA [facility] 11-28-2007 meningococcal polysaccharide (groups A, C, Y and W-135) diphtheria toxoid conjugate vaccine (MCV4P) Shania Queden RAIL MANAGER.AUTOMOTIVE SERVICE PROFESSIONAL Work Phone: [facility] 03-20-2005 hepatitis B vaccine, pediatric or pediatric/adolescent dosage Shania Queden RAIL MANAGER.AUTOMOTIVE SERVICE PROFESSIONAL Work Phone: [facility] 03-15-2004 hepatitis B vaccine, pediatric or pediatric/adolescent dosage Shania Queden RAIL MANAGER.AUTOMOTIVE SERVICE PROFESSIONAL Work Phone: [facility] 03-15-2004 TD(adult) unspecifie d formulation Shania Queden RAIL MANAGER.AUTOMOTIVE SERVICE PROFESSIONAL Work Phone: [facility] 03-04-2001 hepatitis B vaccine, pediatric or pediatric/adolescent dosage Shania Queden RAIL MANAGER.AUTOMOTIVE SERVICE PROFESSIONAL Work Phone: [facility] 03-04-2001 measles, mumps and rubella virus vaccine Shania Queden RAIL MANAGER.AUTOMOTIVE SERVICE PROFESSIONAL Work Phone: [facility] 02-22-1994 haemophilus influenz ae type b vaccine, conjugate unspecified formulation Shania Queden RAIL MANAGER.AUTOMOTIVE SERVICE PROFESSIONAL Work Phone: [facility] 02-15-1994 diphtheria, tetanus toxoids and acellular pertussis vaccine, unspecified formulation Shania Queden RAIL MANAGER.AUTOMOTIVE SERVICE PROFESSIONAL Work Phone: [facility] 02-15-1994 poliovirus vaccine, unspecified formulation Shania Queden RAIL MANAGER.AUTOMOTIVE SERVICE PROFESSIONAL Work Phone: [facility] 07-20-1993 haemophilus influenz ae type b vaccine, conjugate unspecified formulation Shania Queden RAIL MANAGER.[facility] Work Phone: [facility] 05-25-1993 haemophilus influenz ae type b vaccine, conjugate unspecified formulation Shania Queden RAIL MANAGER.AUTOMOTIVE SERVICE PROFESSIONAL Work Phone: [facility] 01-15-1991 diphtheria, tetanus toxoids and pertussis vaccine Shania Queden RAIL MANAGER.AUTOMOTIVE SERVICE PROFESSIONAL Work Phone: [facility] 01-15-1991 poliovirus vaccine, unspecified formulation Shania Queden RAIL MANAGER.AUTOMOTIVE SERVICE PROFESSIONAL Work Phone: [facility] 05-15-1990 haemophilus influenz ae type b vaccine, conjugate unspecified formulation Shania Queden RAIL MANAGER.AUTOMOTIVE SERVICE PROFESSIONAL Work Phone: [facility] 05-15-1990 measles, mumps and rubella virus vaccine Shania Queden RAIL MANAGER.AUTOMOTIVE SERVICE PROFESSIONAL Work Phone: [facility] 11-14-1989 diphtheria, tetanus toxoids and pertussis vaccine Shania Queden RAIL MANAGER.AUTOMOTIVE SERVICE PROFESSIONAL Work Phone: [facility] 05-23-1989 diphtheria, tetanus toxoids and pertussis vaccine Shania Queden RAIL MANAGER.AUTOMOTIVE SERVICE PROFESSIONAL Work Phone: [facility] 05-23-1989 poliovirus vaccine, unspecified formulation Shania Queden RAIL MANAGER.AUTOMOTIVE SERVICE PROFESSIONAL Work Phone: [facility] 02-07-1989 diphtheria, tetanus toxoids and pertussis vaccine Shania Queden RAIL MANAGER.AUTOMOTIVE SERVICE PROFESSIONAL Work Phone: [facility] 02-07-1989 poliovirus vaccine, unspecified formulation Shania Queden RAIL MANAGER.[facility] Work Phone: [facility] Payers Date Payer Category Payer Medicaid [id number] 2024 Self-pay 2023 Unknown [id number] 2022 Medicaid [employer] Member [employer] bscriber Plan / Payer (Effective 2022-Present) Name: Gabriela Vidal Jr. Relation to Subscriber: Self Name: Gabriela Vidal Jr. Payer ID: [id number] (NAIC) Group ID: Not on file Type: Medicaid Address: [address] [address] [place] [id number] 2022 Private Health Insurance [employer] MEDICAID [facility] [id number] 2022-Present [address] [address] [place] [address] Medicaid [id number] 2022 Unknown 2022 Unknown [id number] 2019 Unknown [employer] BLUE CARD PPO OOS [id number] 2019-Present [phone] [address] [place] [address] PPO [id number] 1988 Unknown [id number] Unknown [id number] Unknown [id number] Unknown [id number] Unknown [id number] Unknown [id number] Social History Date Type Detail Facility Start: 05-18-2019 End: 04-04-2023 Tobacco smoking status NHIS Current every day smoker [facility] Work Phone: Start: 05-18-2019 End: 03-12-2024 Alcohol intake Never [facility] Work Phone: Start: 05-18-2019 History SDOH Alcohol Frequency 1 [place], [place] Start: 1990 Sex Assigned At Not on file [place] History of tobacco use Cigarette Smoker [facility] Work Phone: Start: 07-16-2014 End: 03-12-2024 Cigarettes smoked current (pack per day) - Reported 1 [facility] Work Phone: Start: 07-16-2014 End: 04-04-2023 Tobacco use and exposure Smokeless tobacco non-user [facility] Work Phone: Start: 01-03-2022 End: 01-15-2024 Alcohol intake Ex-drinker (finding) [facility] Start: 05-17-2020 History SDOH Alcohol Frequency 2 [facility] Start: 02-02-2020 History SDOH Alcohol Comment 5 times a year [facility] Start: 12-24-2021 End: 01-03-2022 Exposure to SARS-CoV-2 (event) Not sure [facility] Start: 09-28-2023 Tobacco smokin g consumption unknown [facility] How often to you hav e a drink containing alcohol? Monthly or less [facility] Work Phone: Average Number of Drinks Not on file [facility] Start: 1990 Sex Assigned At Male [facility] Functional Status Date Assessment Result Facility 07-16-2014 Are you deaf, or do you have serious difficulty hearing No 07/16/2014 8:04 AM Ladi Ocampo Ma No [facility] 07-16-2014 Are you blind, or do you have serious difficulty seeing, even when wearing glasses No 07/16/2014 8:04 AM Ladi Ocampo Ma No [facility] 07-16-2014 Do you have serious difficulty walking or climbing stairs No 07/16/2014 8:04 AM Ladi Ocampo Ma No [facility] 07-16-2014 Do you have difficul ty dressing or bathing No 07/16/2014 8:04 AM Ladi Ocampo Ma No [facility] 07-16-2014 Because of a physica l, mental, or emotional condition, do you have difficulty doing errands alone such as visiting a physician's office or shopping No 07/16/2014 8:04 AM FRANCIA Angelo MaLadi No [facility] Mental Status Date Assessment Result Facility 07-16-2014 Because of a physica l, mental, or emotional condition, do you have serious difficulty concentrating, remembering, or making decisions Yes 07/16/2014 8:04 AM Ladi Ocampo Ma Yes [facility] Clinical Notes 01-06-2022 to 01-13-2025 Estephania Lemos LPN - 01/12/2025 2:17 PM EDTEstephania Lemos LPN - 04/21/2024 4:51 PM EDTTelephone Encounter - Shania Vieira APRN.AUTOMOTIVE SERVICE PROFESSIONAL - 01/28/2024 12:12 PM EDT Note Date & Type Note Facility 01-13-2025 Note HNO ID: [id number] Author: ESTEPHANIA LEMOS LPN Service: ? Author Type: LICENSED NURSE Type: Progress Notes Filed: 01/13/2025 09:29 Note Text: ED Follow-Up Note Provider Action / FYI: Call completed by: AUGUSTO Patient seen in ED: Out of Network ED Contact made with Patient: No, unable to leave message. No longer working number. Estephania Lemos LPN January 13, 2025 9:29 AM [facility] 01-12-2025 Note HNO ID: [id number] Author: ESTEPHANIA LEMOS LPN Service: ? Author Type: LICENSED NURSE Type: Progress Notes Filed: 01/12/2025 14:18 Note Text: ED Follow-Up Note Provider Action / FYI: Call completed by: AUGUSTO Patient seen in ED: Out of Network ED Contact made with Patient: No, unable to leave message. Phone number is no longer in service. Estephania Lemos LPN January 12, 2025 2:18 PM [facility] 01-12-2025 History of Present illness Narrative ED Follow-Up Note Provider Action / FYI: Call completed by: AUGUSTO Patient seen in ED: Out of Network ED Contact made with Patient: No, unable to leave message. Phone number is no longer in service. Estephania Lemos LPN January 12, 2025 2:18 PM documented in this encounter [facility] 01-12-2025 Note Patient Outreach (AG FAMPLE) GABRIELA VIDAL JR. ([id number]) 1990 M Date Time Provider Department 01/12/25 SHANIA VIEIRA During your visit today, we recorded the following information about you: Estephania Lemos LPN 01/12/2025 2:18 PM Signed ED Follow-Up Note Provider Action / FYI: Call completed by: AUGUSTO Patient seen in ED: Out of Network ED Contact made with Patient: No, unable to leave message. Phone number is no longer in service. Estephania Lemos LPN January 12, 2025 2:18 PM Estephania Lemos LPN 01/13/2025 9:29 AM Signed ED Follow-Up Note Provider Action / FYI: Call completed by: AUGUSTO Patient seen in ED: Out of Network ED Contact made with Patient: No, unable to leave message. No longer working number. Estephania Lemos LPN January 13, 2025 9:29 AM Allergies As of Date: 01/12/2025 (No Known Allergies) Date Reviewed: 01/15/2024 Reviewed by: Shania Vieira APRN.AUTOMOTIVE SERVICE PROFESSIONAL - Fully Assessed Reason for Visit: ED Follow-up [821] Cmt: [facility] 01/07/2025 Prescriptions as of 01/13/2025 - hydrOXYzine HCl (ATARAX) 50 mg tablet Take 50 mg by mouth every 6 hours as needed. - traZODone (DESYREL) 50 mg tablet Take 50 mg by mouth at bedtime as needed. For Insomnia - guanFACINE (INTUNIV) 1 mg ER 24 hr tablet(s) TAKE 2 TABLETS BY MOUTH ONCE DAILY AT BEDTIME FOR ADD OR ADHD - risperiDONE (RISPERDAL) 2 mg tablet Take 2 mg by mouth daily at bedtime. - lamoTRIgine (LAMICTAL) 25 mg tablet TAKE 2 TABLETS BY MOUTH ONCE DAILY AT BEDTIME FOR BIPOLAR DISORDER. - ibuprofen (MOTRIN) 600 mg tablet Take 1 tablet by mouth every 6 hours as needed for pain. Problem List As Of Date 01/12/2025 Noted Resolved Adult ADHD [F90.9] 07/16/2014 Schizoaffective disorder (HCC) [F25.9] 01/15/2024 Drug overdose [T50.901A] 01/15/2024 Substance abuse (HCC) [F19.10] 01/15/2024 Acute psychosis (HCC) [F23] 10/03/2023 Auditory hallucinations [R44.0] 01/15/2024 Marijuana use [F12.90] 01/15/2024 Encounter Status:Closed by ESTEPHANIA LEMOS on 01/12/25 [facility] 01-07-2025 Discharge summary [facility] 04-21-2024 Note HNO ID: [id number] Author: ESTEPHANIA LEMOS LPN Service: ? Author Type: LICENSED NURSE Type: Progress Notes Filed: 04/23/2024 07:40 Note Text: TRANSITIONAL CARE MANAGEMENT (TCM) COMMUNITY MONITORING PROGRAM - [facility] Provider Action/FYI: SUMMARY: Pt discharged from [facility] on 04/19/2024. Admitted for: ISABELLA, COVID-19 Patient seen Inpatient NURY Visit? No. Patient seen ICARE Program? No. Contact made with patient: No - next outreach attempt will be on next business day No Contact made. Outreach ended [facility] 04-21-2024 History of Presen t illness Narrative TRANSITIONAL CARE MANAGEMENT (TCM) COMMUNITY MONITORING PROGRAM - [facility] Provider Action/FYI: SUMMARY: Pt discharged from [facility] on 04/19/2024. Admitted for: ISABELLA, COVID-19 Patient seen Inpatient NURY Visit? No. Patient seen ICARE Program? No. Contact made with patient: No - next outreach attempt will be on next business day No Contact made. Outreach ended documented in this encounter [facility] 04-21-2024 Note Patient Outreach (AG INTMLW) GABRIELA VIDAL JR. ([id number]) 1990 M Date Time Provider Department 04/21/24 ESTEPHANIA LEMOS AGINTMLW During your visit today, we recorded the following information about you: Estephania Lemos LPN 04/23/2024 7:40 AM Signed TRANSITIONAL CARE MANAGEMENT (TCM) COMMUNITY MONITORING PROGRAM - JUDD Provider Action/FYI: SUMMARY: Pt discharged from [facility] on 04/19/2024. Admitted for: ISABELLA, COVID-19 Patient seen Inpatient NURY Visit? No. Patient seen ICARE Program? No. Contact made with patient: No - next outreach attempt will be on next No Contact made. Outreach ended Allergies As of Date: 04/21/2024 (No Known Allergies) Date Reviewed: 01/15/2024 Reviewed by: Shania Vieira APRN.AUTOMOTIVE SERVICE PROFESSIONAL - Fully Assessed Reason for Visit: Transition Of Care [4074] Cmt: Pt was admitted to [facility] on 04/18/2024 for ISABELLA, COVID-19. Pt was d/c on 04/19/2024 Prescriptions as of 04/23/2024 - hydrOXYzine HCl (ATARAX) 50 mg tablet Take 50 mg by mouth every 6 hours as needed. - traZODone (DESYREL) 50 mg tablet Take 50 mg by mouth at bedtime as needed. For Insomnia - guanFACINE (INTUNIV) 1 mg ER 24 hr tablet(s) TAKE 2 TABLETS BY MOUTH ONCE DAILY AT BEDTIME FOR ADD OR ADHD - risperiDONE (RISPERDAL) 2 mg tablet Take 2 mg by mouth daily at bedtime. - lamoTRIgine (LAMICTAL) 25 mg tablet TAKE 2 TABLETS BY MOUTH ONCE DAILY AT BEDTIME FOR BIPOLAR DISORDER. - ibuprofen (MOTRIN) 600 mg tablet Take 1 tablet by mouth every 6 hours as needed for pain. Problem List As Of Date 04/21/2024 Noted Resolved Adult ADHD [F90.9] 07/16/2014 Schizoaffective disorder (HCC) [F25.9] 01/15/2024 Drug overdose [T50.901A] 01/15/2024 Substance abuse (HCC) [F19.10] 01/15/2024 Acute psychosis (HCC) [F23] 10/03/2023 Auditory hallucinations [R44.0] 01/15/2024 Marijuana use [F12.90] 01/15/2024 Encounter Status:Closed by ESTEPHANIA LEMOS on 04/23/24 [facility] 04-19-2024 Note [facility] Medical Records Department [address] [place] [address] Discharge Summary 04/19/24 1215 MR#: [id number] Acct: [id number] Name: GABRIELA VIDAL Jr. Rep #: [id number] : 1990 33 From: Fili Valencia DO PCP: ELOISA Braden Status:DIS IN [facility] Prov[facility] Date of Admission: 04/18/24 Date of Discharge: 04/19/24 Primary Care Physician: ELOISA Braden Reason For Visit: COVID, ISABELLA, N/V/D/MILD COLITIS Diagnosis Discharge Diagnosis (1) COVID-19: Status: Acute Code(s): U07.1 - COVID-19 (2) ISABELLA (acute kidney injury): Status: Acute Code(s): N17.9 - Acute kidney failure, unspecified Medications at Discharge Home Medications guanfacine 2 mg tablet 2 mg PO QHS #30 tabs 12/21/23 atomoxetine 40 mg capsule (Strattera) 40 mg PO DAILY 04/18/24 amoxicillin 875 mg-potassium clavulanate 125 mg tablet 1 tab PO BID 5 days #10 tabs 04/19/24 Hospital Course Operations None Procedures EKG and - (Chest x-ray, CT abdomen pelvis) Summary of Care Provided Minutes Spent on Discharge: 35 Hospital Course: Patient is a 33-year-old male who presented [facility] ED on 04/18/2021 with nausea, vomiting and diarrhea. Short hospital course as noted below. Patient discharged home in stable condition on 04/19. 1. Mild sigmoid colitis ??? Presented with fairly acute onset nausea/vomiting/diarrhea. CT abdomen pelvis showed thickening of distal colonic wall with mild colitis of the distal sigmoid colon. Was initially suspected this could be due to COVID but procalcitonin was very elevated. Treated with IV Zosyn while inpatient with good improvement, was tolerating regular diet on day of discharge and had no loose bowel movements during hospitalization. Stool sample was not able to be collected. Discharged on Augmentin to complete 7-day course of antibiotics total. 2. COVID-19 infection ??? COVID-positive in the ED. Chest x-ray unremarkable. Breathing comfortably and satting well on room air during hospitalization. 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 3. ISABELLA, resolved ??? Creatinine 2.87 on admission, baseline 1.0-1.2. Presumed prerenal etiology. Improved to 1.16 on hospital day 2 after IV fluid resuscitation, resolved. 4. Polysubstance abuse ??? Reported history of methamphetamine, fentanyl and cannabis use. Patient reported cessation of drug use on admission. UDS positive for amphetamines, MDMA and cannabinoids, however patient is ADHD medication would cause positive for amphetamines and MDMA. Encouraged cessation of marijuana use. 5. History of anxiety/depression/ADHD/concern for schizophrenia ??? Previously on hydroxyzine, lamotrigine, risperidone and trazodone but not able to confirm fills for any of these on admission. Recommend close outpatient follow-up with psychiatry on discharge. 6. Tobacco abuse ??? Nicotine patch provided while inpatient per patient request. Encouraged cessation on discharge. Total clinical time spent by myself addressing the patient's medical issues, reviewing all the data, and collaborating with patient's care team: 35 minutes. Physical Exam Const alert, oriented x3, no apparent distress and average body habitus Constitutional Narrative: Pleasant younger male, mildly anxious appearing but otherwise sitting up comfortably in bed, conversing normally, in no acute distress. General Appearance: cooperative and comfortable HEENT normocephalic, head/scalp atraumatic, hearing grossly normal bilaterally, nasal mucous membranes and turbinates normal and moist oral mucous membranes Eyes PERRL, EOMs intact bilaterally and conjunctivae normal Neck full ROM Chest inspection of chest normal Resp normal respiratory effort, normal air movement, no use of accessory muscles and clear to auscultation bilaterally Cardio regular rate, regular rhythm, no murmurs and peripheral pulses 2+ throughout GI normal to inspection, nondistended, normoactive bowel sounds, soft to palpation, non-tender and non- distended Back/Spine normal ROM Extremity normal to inspection, full ROM and no pedal edema Skin no rashes or lesions noted Neuro no focal motor deficits and no sensory deficits noted Speech: speech normal Psych mental status grossly normal Weight / BMI Weight Weight: 78.471 kg Body Mass Index (BMI) 24.2 ABG / Lab / Microbiology Data 04/19/24 04:40 04/19/24 04:40 Laboratory: Laboratory Results - last 24 hr 04/18/24 08:27: Syphilis Total Ab Non-reactive, Hep Bs Antigen Non-Reactive, Hep Bs Antibody Non- Reactive, Hepatitis C Antibody Non-Reactive, HIV 1 2 Antibody Non-Reactive 04/19/24 04:4 (more content not included)... [facility] 01-28-2024 Telephone encounter Note Referral placed to orthopedics/sports medicine [facility] 01-28-2024 Miscellaneous Notes Referral placed to orthopedics/sports medicine Patient came to office because he is still in pain. Referral was give for Dr De Santiago. Please enter referral to patient chart. Thanks documented in this encounter [facility] 01-28-2024 Telephone encounter Note Patient came to office because he is still in pain. Referral was give for Dr De Santiago. Please enter referral to patient chart. Thanks [facility] 01-15-2024 History of Presen t illness Narrative Images from the original note were not included. [facility] Shania Vieira RAIL MANAGER-AUTOMOTIVE SERVICE PROFESSIONAL [address] [place] [address] Dept Dept. Visit Date: January 15, 2024 Mr.Robert Larry Vidal Jr. Date of : 1990 MRN/E #: [id number] Chief Complaint: Patient presents with: Establish Care History of Present Illness Gabriela Vidal Jr. is a 33 year old male returns today to reestablish care. I reviewed past medical, surgical, social, and family histories today and updated chart. Allergies, chronic medications, and supplements were also reviewed. Had laced marijuana in July and since then he has been hearing voices in his head His car radio told him to choke out a shereen and he did and her was arrested. He has an ankle bracelet Released from [facility] on 12/22/23 for acute psychosis and schizophrenia. Has an appt with psychiatry doctor on 01/22/24 but isn't sure who it was with He is currently staying with a few friends. He had his own trailer but was recently kicked out. Staying with his uncle, not the best living situation He reports he has been sober for a month One medication fell out into his backpack and got wet. He isn't sure which one it is because the label also got wet. Trazodone is giving him nightmares Has intrusive thoughts still but not as strong PAST MEDICAL HISTORY Diagnosis Date Adult ADHD 07/16/2014 Attention deficit disorder with hyperactivity(314.01) PAST SURGICAL HISTORY Procedure Laterality Date TONSILLECTOMY & ADENOIDECTOMY <AGE 12 T/A (under age 10 years) TONSILLECTOMY HX Social History Tobacco Use Smoking status: Every Day Packs/day: 1.00 Years: 4.00 Additional pack years: 0.00 Total pack years: 4.00 Types: Cigarettes Smokeless tobacco: Never Vaping Use Vaping Use: Never used Substance Use Topics Alcohol use: Not Currently Comment: 5 times a year Drug use: Yes Frequency: 7.0 times per week Types: Marijuana, Crystal Meth Social History Social History Narrative Not on file Family History Reviewed Including Cardiac Diseases, Psychiatric Diseases, & Substance Abuse Problem: Hypertension Relation: Mother Age of Onset: (Not Specified) Problem: Cancer Relation: Father Age of Onset: (Not Specified) Comment: esophageal ALLERGIES No Known Allergies Current Outpatient Medications Medication Sig hydrOXYzine HCl (ATARAX) 50 mg tablet Take 50 mg by mouth every 6 hours as needed. traZODone (DESYREL) 50 mg tablet Take 50 mg by mouth at bedtime as needed. For Insomnia guanFACINE (INTUNIV) 1 mg ER 24 hr tablet(s) TAKE 2 TABLETS BY MOUTH ONCE DAILY AT BEDTIME FOR ADD OR ADHD risperiDONE (RISPERDAL) 2 mg tablet Take 2 mg by mouth daily at bedtime. lamoTRIgine (LAMICTAL) 25 mg tablet TAKE 2 TABLETS BY MOUTH ONCE DAILY AT BEDTIME FOR BIPOLAR DISORDER. ibuprofen (MOTRIN) 600 mg tablet Take 1 tablet by mouth every 6 hours as needed for pain. No current facility-administered medications for this visit. Review of Systems Review of Systems Constitutional: Negative for chills, diaphoresis, fatigue and fever. Respiratory: Negative. Cardiovascular: Negative. Gastrointestinal: Negative. Genitourinary: Negative. Musculoskeletal: Positive for arthralgias. Skin: Negative. Neurological: Positive for dizziness and light-headedness. Negative for seizures, syncope and headaches. Psychiatric/Behavioral: Positive for decreased concentration, dysphoric mood, hallucinations (auditory on occasion) and sleep disturbance. Negative for behavioral problems, confusion, self-injury and suicidal ideas. The patient is nervous/anxious. The patient is not hyperactive. Vital Signs BP 122/62 Pulse 98 Temp 97.9 Resp 18 Ht 5' 10 (1.78m) Wt 171 lb (77.6kg) SpO2 99% BMI 24.54 kg/(m^2). Physical Exam Vitals and nursing note reviewed. HENT: Mouth/Throat: Mouth: Mucous membranes are moist. Eyes: Pupils: Pupils are equal, round, and reactive to light. Cardiovascular: Rate and Rhythm: Normal rate and regular rhythm. Heart sounds: Normal heart sounds. Pulmonary: Breath sounds: Normal breath sounds. Musculoskeletal: Cervical back: Neck supple. Neurological: Mental Status: He is alert and oriented to person, place, and time. Comments: Frequent uncontrolled facial movements with pursing lips, opening mouth, and blinking eyes Psychiatric: Mood and Affect: Mood is anxious. Speech: Speech is tangential. Behavior: Behavior is cooperative. Thought Content: Thought content is not paranoid. Thought content does not include homicidal or suicidal ideation. Visit Diagnoses (F25.9) Schizoaffective disorder, unspecified type (HCC) (primary encounter diagnosis) (F90.9) Adult ADHD (R44.0) Auditory hallucinations (F23) Acute psychosis (HCC) (F12.90) Marijuana use (Z59.9) Financial difficulties (M25.512) Acute pain of left shoulder (Z59.89) Living in temporary quarters Assessment and Plan 1. Schizoaffective disorder, unspecified type (HCC) - ICD9: 295.70, ICD10: F25.9 (primary diagnosis) - Needs to follow up with psychiatry. I stressed the importance of this to him. He needs to take his medications as prescribed. - LAMOTRIGINE 25 MG TABLET - CONSULT TO SOCIAL WORK AG (SPLITTING MACHINE FEEDER) 2. Adult ADHD - ICD9: 314.01, ICD10: F90.9 - Under the care of psychiatry. Currently on Intunviv 3. Auditory hallucinations - ICD9: 780.1, ICD10: R44.0 4. Acute psychosis (HCC) - ICD9: 298.9, ICD10: F23 5. Marijuana use - ICD9: 305.20, ICD10: F12.90 6. 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 Jr. DATE OF SERVICE: January 29, 2023 TIME: 12:17 PM PATIENT IDENTITY VERIFICATION COMPLETED USING TWO (2) IDENTIFIERS: Name and Date of confirmedby patient verbally. FALL SCREENING: Has the patient had 2 falls in the last year or 1 fall with injury or currently using an Ambulatory Assistive Device (Walker, Cane, Wheelchair, Crutches, etc.)? No PATIENT GENDER DATA: Male PATIENT RELEVANT IMPLANT DATA REVIEWED: Not Applicable RADIOLOGY DEPARTMENT: General X-ray: Exam(s) Completed: Upper Extremity X- Ray(s): Shoulder, AP / TRUE AP / AXILLARY bilateral PERIPHERAL IV DATA: Not applicable SIGNED BY: OTIS Yi) January 29, 2023 12:17 PM * Raven Montalvo RT(R) - 01/29/2023 12:00 PM EDT RADIOLOGY SERVICE PROGRESS NOTE DATE OF SERVICE: February 05, 2023 TIME OF SERVICE: 12:00pm EVENT: FALL: Fall Details: Patient was in for a shoulder x-ray. I took the first images with him sitting in a rosi. He stood up for the rest of the images. After 2 images he said he felt dizzy and wanted to sit down. I had himsit in a chair and told him to take his time and let me know when he felt better. He said he felt better and we continued with the x-rays. I came into the room to tell him we were done and passed outand his head hit the wall. I called for Thom and he called for Abad and Luis who immediatelycame. Thom helped him to the table once he was conscious. Patient was only unconscious for less than 1 minute. Abad took the patients blood pressure and said it was low. Luis notified the patient that he had to go to ER. Patient was pale and sweaty. Patient kept stating that he was fine and that his head didn't hurt. Patient was concerned about how he would get back to get his car after leaving the ER. We have him crackers, ice packs, and apple juice. Jose rAmando had Bouchra at our front counter clerk call 911. Luis and Thom got a bed and we took the patient to lay down in trendelenburg position while he ate some more. Ambulance came a couple of minutes after that Who was notified: Thom Balbuena, Abad Anderson, Luis Altzaira. Treatment given: Yes, patient was given juice and crackers, blood pressure was taken and patient was laid down on a bed until an ambulance arrived. Patient disposition: Sent to ED. ADDITIONAL EVENT DETAILS: N/A SIGNATURE: OTIS Yi) PATIENT NAME: Gabriela Vidal Jr. DATE: February 05, 2023 TIME: 10:57 AM PAGER/CONTACT #: documented in this [facility] Miscellaneous Notes* Plan of Care - Abad Anderson MD - 01/29/2023 12:00 PM EDT Progress Note Was notified by the techs of patient fall. Reportedly, patient fell and hit his head after standingup after getting Xrays. Patient was promptly seen and examined. Subjective Patient had complaints of dizziness weekness. Objective Skin: pale and diaphoretic General: A&O x3 Vitals: HR 60, BP 85/50 Assessment & Plan 32 year old year old male with a fall hitting back of his head and reported LOC. -Patient was observed and was given juice and crackers -patient was handed off to EMS to be transferred to the nearest ED Abad Anderson MD [employer] radiology fellow * Addendum Note - Abad Anderson MD - 01/29/2023 12:00 PM EDTEncounter addended by: Abad Anderson MD on: 01/29/2023 1:13 PM Actions taken: Clinical Note Signed * Addendum Note - Raven Montalvo RT(R) - 01/29/2023 12:00 PM EDTEncounter addended by: RT Kd(R) on: 02/05/2023 11:12 AM Actions taken: Chief Complaint modified, Clinical Note Signed documented in this encounterMer[facility] Note* Addendum Note - Abad Anderson MD - 01/29/2023 12:00 PM EDTEncounter addended by: Abad Anderson MD on: 01/29/2023 1:13 PM Actions taken: Clinical Note Signed [facility] Note* Addendum Note - Raven Montalvo RT(R) - 01/29/2023 12:00 PM EDTEncounter addended by: RT Kd(R) on: 02/05/2023 11:12 AM Actions taken: Chief Complaint modified, Clinical Note Signed [facility] Plan of care note* Plan of Care - Abad Anderson MD - 01/29/2023 12:00 PM EDT Progress Note Was notified by the techs of patient fall. Reportedly, patient fell and hit his head after standingup after getting Xrays. Patient was promptly seen and examined. Subjective Patient had complaints of dizziness weekness. Objective Skin: pale and diaphoretic General: A&O x3 Vitals: HR 60, BP 85/50 Assessment & Plan 32 year old year old male with a fall hitting back of his head and reported LOC. -Patient was observed and was given juice and crackers -patient was handed off to EMS to be transferred to the nearest ED Abad Anderson MD MSK radiology fellow [facility] Work Phone: [phone] Miscellaneous Notes* Telephone Encounter - Humera Gillis MA - 01/01/2023 1:54 PM EDT Pt. Aware and will get labs done once back from vacation. Humera Gillis MA * Telephone Encounter - Humera Gillis MA - 01/01/2023 1:54 PM EDT ----- Message from Shania Vieira APRN.CNP sent at 01/01/2023 1:25 PM EDT ----- Negative for GC/Chlamydia and trichomonas. Please remind him to complete the syphilis test when he comes back home. documented in this encounter[facility] Instructions* Patient Instructions* Shania Vieira APRN.CNP - 12/29/2022 5:07 PM EDT SEXUALLY TRANSMITTED DISEASES GENERAL INFORMATION: Sexually transmitted diseases (STDs) are infections that are spread by vaginal, oral, or anal sexual contact. The most serious STD is HIV infection. HIV is the virus that causes AIDS. Other common STDs are gonorrhea, syphilis, chlamydia, herpes, and genital warts. To avoid getting an STD, you should have safe sex, and the only safe sex is sex between two faithful partners who do not have STDs, ornot having sex at all (abstinence). You may still catch an STD when using other methods of protection, including using condoms and limiting the number of sexual partners. The more partners you have, the more likely you are to get an STD. INSTRUCTIONS: 1. It is important to follow your health reproductive healthcare assistant's explanations for treatment. If you are given antibiotics, take them until they are all gone, even if you feel better. 2. Don't have sex while you are being treated for an STD. After that, you or your partner should use a condom. This helps protect against catching or spreading STDs. 3. Tell all your sexual partners that you are being treated for an STD. They may be infected also and need treatment. 4. Wash your hands often, especially after you urinate or have a bowel movement. Do not touch your eyes with your hands. You can spread your STD to your eyes that way. 5. If you are , tell your doctor that you have an STD. Your STD can spread to your unborn child. 6. Women should wear cotton underwear or pantyhose with a cotton crotch so that moisture will not be trapped in that area. 7. If you had a culture, your results will be ready in 48-72 hours. You can ask your [facility] doctor or call [phone] to check them. CONTACT YOUR DOCTOR OR RETURN TO THE EMERGENCY DEPARTMENT IF: 1. You have any problems that may have occurred because of the medicine you are taking (such as a rash, swelling, or trouble breathing). 2. The symptoms or problems for which you were seen become worse or come back after treatment. documented in this encounterMer[facility] History of Present illness Narrative* Shania Vieira APRN.CNP - 12/29/2022 4:59 PM EDT CHIEF COMPLAINT: Gabriela Vidal Jr. is a 32 year old male who presents for possible exposure to a STD. He reports hewas with a female partner about a month ago and she contacted him and said she had gonorrhea and syphilis. He would like to be checked for these. He denies any penile discharge, pain, burning with urination. The only symptom he has noticed is a tight clamminess. I reviewed past medical, surgical,social, and family histories today and updated chart. Allergies, chronic medications, and supplements were also reviewed. The history is provided by the patient. No multi disciplined language analyst was used. PAST MEDICAL HISTORY Diagnosis Date Adult ADHD 07/16/2014 Attention deficit disorder with hyperactivity(314.01) PAST SURGICAL HISTORY Procedure Laterality Date TONSILLECTOMY & ADENOIDECTOMY <AGE 10 T/A (under age 10 years) TONSILLECTOMY HX Social History Tobacco Use Smoking status: Every Day Packs/day: 1.00 Years: 4.00 Pack years: 4.00 Types: Cigarettes Smokeless tobacco: Never Vaping Use Vaping Use: Never used Substance Use Topics Alcohol use: Not Currently Comment: 5 times a year Drug use: Yes Types: Marijuana ALLERGIES No Known Allergies Family History Problem Relation Age of Onset Hypertension Mother Cancer Father esophageal No current outpatient medications on file. No current facility-administered medications for this visit. Review of Systems Constitutional: Negative. Respiratory: Negative. Cardiovascular: Negative. Genitourinary: Negative for decreased urine volume, difficulty urinating, dysuria, enuresis, flank pain, frequency, genital sores, hematuria, penile discharge, penile pain, penile swelling, scrotal swelling, testicular pain and urgency. Skin: Negative. BP 120/74 Pulse 91 Temp 97.9 Ht 5' 10 (1.78m) Wt 176 lb (79.8kg) SpO2 97% BMI 25.25 kg/(m^2). Physical Exam Vitals and nursing note reviewed. Constitutional: Appearance: Normal appearance. Skin: General: Skin is warm and dry. Neurological: Mental Status: He is alert and oriented to person, place, and time. ASSESSMENT/PLAN: 1. Dysuria - ICD9: 788.1, ICD10: R30.0 (primary diagnosis) acute - Patient education for prevention given UA negative - UA DIP, URINE (POC) 2. Exposure to STD - ICD9: V01.6, ICD10: Z20.2 - Prophylactic treatment with Doxycycline - GC/CHLAMYDIA AMPLIF, URINE - SYPHILIS TOTAL W/REFLEX - T VAGINALIS AMPLIFICATION - GC/CHLAMYDIA AMPLIF, URINE - DOXYCYCLINE MONOHYDRATE 100 MG TABLET New medication(s) prescribed today: Yes: Doxycycline. Discussed new medication dosage, usage, goalsof therapy, and side effects. Patient has been apprised of any potential drug interactions to be aware of. Patient expresses understanding. Counseling completed in adopting health behaviors such as avoiding excessive alcohol use, avoid tobacco use, improve nutrition, and engage in physical activities. Copy of written care plan, clinical summary, treatment plan, new medications, goals, and self management requirements were given to patient. Shania Vieira APRN.LATRICIA documented in this encounterMer[facility]01-26-2023 History of Present illness Narrative* Kathy Chauhan LPN - 08/24/2022 11:11 AM EST ED Follow Up: Patient discharged from [facility] ED on 08/21/2022. 1. How are you feeling since your ED visit? Much improvement noted with injections given in ED. Pt states he was without insurance for awhile and now that he is insured he has plans on following up with Dr Rivera office. Have your symptoms improved or resolved? Yes 2. Were you prescribed any medications while in the ED or advised to stop any medication? Yes - If yes, were you able to fill your prescriptions? Yes -if stopped medication, what was the medication? na 3. Were you advised to schedule a follow up appointment with your provider? Yes - If no, Do you feel like you need an appointment scheduled? No - If yes, Do you need this scheduled now or has this already been scheduled? Not applicable 4. Were you able to contact the office or assembler semiconductor provider prior to your ED visit? No 5. Is there anything else I can do for you today? No Kathy Chauhan LPN documented in this encounterMer[facility]06-[facility] History of Present illness Narrative* Geraldine Landin MA - 01/06/2022 4:45 PM EDT ED Follow Up: Left message attempted to reach patient Patient discharged from [facility] ED on 01/03/22. 1. How are you feeling since your ED visit? Left message attempted to reach patient Have your symptoms improved or resolved? Not applicable 2. Were you prescribed any medications while in the ED or advised to stop any medication? Left message attempted to reach patient - If yes, were you able to fill your prescriptions? Left message attempted to reach patient -if stopped medication, what was the medication? Left message attempted to reach patient 3. Were you advised to schedule a follow up appointment with your provider? Left message attempted to reach patient - If no, Do you feel like you need an appointment scheduled? Left message attempted to reach patient - If yes, Do you need this scheduled now or has this already been scheduled? Left message attemptedto reach patient 4. Were you able to contact the office or assembler semiconductor provider prior to your ED visit? Left message attempted to reach patient 5. Is there anything else I can do for you today? Left message attempted to reach patient Geraldine Landin MA [facility] Author Stephan Burk [facility] Note Date/Time January 07, 2025 9:45 am [facility] Medical Records Department [address] [place] [address] Emergency Department Summary 01/07/25 MR#: [id number] Acct: [id number] Name: GABRIELA VIDAL Rep #:[id number] : 1990 34 From: Stephan Burk MD PCP: ELOISA Braden Status:REG E R Location: ED HPI History of Present Illness HPI Narrative: 34-year-old male history of ADHD, schizophrenia and polysubstance abuse. Deniesany IV drug abuse. States he was putting a rack on his electric bike yesterday and causing some mild laceration of his right index finger. Now it is painful and swollen. Chief Complaint: Laceration Informant: patient Occured/Mechanism Mechanism/Context: Yes injury Onset/Context/Timing Onset: Yesterday Context: Gradual Onset Timing: Continuous Quality of Pain: Sharp Current Severity: Moderate Maximum Severity: Moderate Narrative Narrative: 34-year-old male complaining of pain and swelling of right index finger. Patient states he injured it last night. On a drill bit. Today its painful andswollen. Prior similar symptoms: No Recent Illness/Hospitalization: No PFSH PFSH Medical History ADHD Schizophrenia Mood disorder Anxiety and depression CKD (chronic kidney disease), stage II Polysubstance abuse Tobacco use Home Medications ?Medication ?Instructions ?Recorded ?Last Taken ?Type guanfacine 2 mg tablet 2 mg PO QHS #30 tabs 12/20/ 4 Unknown Rx atomoxetine 40 mg capsule 40 mg PO DAILY 04/18/24 Unkn own History (Strattera) amoxicillin 875 mg-potassium 1 tab PO BID 5 days #10 t abs 04/19/24 Unknown Rx clavulanate 125 mg tablet amoxicillin 875 mg-potassium 1 tab PO Q12H 10 days #20 tabs 01/07/25 Unknown Rx clavulanate 125 mg tablet Allergy/AdvReac Type Severity Reaction Status Date / Time No Known Allergies Allergy Verified 04/17/24 23:29 Family History Mother Kidney disease Father Cancer Surgical History History of dental surgery History of tonsillectomy and adenoidectomy Social History household members: other details: Lives with his uncle. Smoking Status: Current every day smoker tobacco type: cigarettes alcohol intake: never substance use type: former substance user Date of last use: Fentanyl, Methamphetamines per prior records. ROS ROS ED ROS Narrative Denies any recent illness. Denies any fever or chills. Constitutional Constitutional ED: Denies chills or fever(s) Eyes Eyes: Denies blurry vision ENT ENT ED: Denies ear pain Cardiovascular Cardiovascular: Denies chest pain Respiratory/Chest Respiratory/Chest: Denies cough or dyspnea Gastrointestinal Gastrointestinal: Denies abdominal pain Genitourinary Genitourinary ED: Denies dysuria or hematuria Musculoskeletal Musculoskeletal: Denies back pain or myalgias Integumentary Denies abscess or Abrasions Neurologic Neurologic: Denies headache(s) Psychiatric Psychiatric: Denies anxiety Endocrine Endocrinology: Denies cold intolerance Hematologic/Lymphatic Hematologic/Lymphatic: Denies easy bleeding, easy bruising or lymphadenopathy Allergic/Immunologic Allergic/Immunologic ED: Denies mouth swelling, tongue swelling or urticaria EXAM Physical Exam Narrative Exam Narrative: 34-year-old male vital signs stable afebrile. No acute distress. He is anxious. H EENT exam pupils round reactive light. Moist mucous membranes. Poor dentition. Neck nontender no lymphadenopathy. Lungs clear to auscultation. Heart regular rhythm rate about 95 no murmur. Chest wall ribs nontender. Abdomen soft nontender. Moving all 4 extremities. His right index finger there is some cracking of the skin along the nail. There is a very very superficial laceration on the medial aspect of his right PIP. There is no bleeding. It does not need repaired. The finger is swollen. Appears to be infected. There is no bony deformity or tenderness. He has normal flexion extension. There is no signs of tenosynovitis. There is no abscess. There is no lymphangitic streaking. The wrist, forearm, elbow and upper arm are unremarkable. There are no track rodriguez. Neurologically he is awake and alert. Const Vital Signs: 01/07/25 08:42 Temperature 97 F L Temperature Source Temporal Pulse Rate 99 Respiratory Rate 18 Blood Pressure 108/97 H Blood Pressure Mean 100 Pulse Ox 97 Oxygen Delivery Method Room Air Positive well developed and unkempt; Negative for cachectic or contractures General Appearance ED: unkempt, well developed and NAD; Negative for cachectic, contractures, cyanotic or diaphoretic Nutritional Appearance: Negative for cachectic HEENT Reports moist mucous membranes normocephalic and atraumatic Eyes PERRL and EOMs intact bilaterally Neck full ROM and supple Chest Wall inspection of chest normal and palpation of chest normal Resp normal respiratory effort and clear to auscultation bilaterally Cardio regular rate, regular rhythm, S1 normal heart sound, S2 normal heart sound and no murmurs Rate: Negative for bradycardia or tachycardic GI non-tender, non-distended and no masses Palpation: soft; Negative for tender or guarding Back/Spine no CVA tenderness General Back: Negative for CVA tenderness Cervical Spine: Negative for cervical spine tenderness Thoracic Spine / Upper Back: Negative for thoracic spinal tenderness Lumbar Spine / Lower Back: Negative for lumbar spinal tenderness Extremity full ROM; Negative for normal to inspection Extremity Narrative: Right index finger mildly swollen. Chronic cracking of the skin along the nail. Superficial tiny little laceration along the medial aspect of the PIP. He is able to flex extend the finger. Is neurovascularly intact. Appears to be earlyinfection. No tenosynovitis. General Extremety ED: Yes edema General Extremity: edema Neuro oriented x3, CN's II-XII intact bilaterally, moves all extremities, no focal motor deficits and no sensory deficits noted Sensorium / Orientation: alert, oriented to person, oriented to place and oriented to time Motor Exam: strength 5/5 throughout Psych Negative for mental status grossly normal Appearance: unkempt Mood & Affect: anxious Skin Lesions: no lesions Rashes: no rashes Trauma: no lacerations or abrasions MDM MDM MDM Narrative Medical decision making narrative: 34-year-old male appears to have an infected right index finger. There is no tenosynovitis. I do not think it is related to the injury he talks about last night. There is no need for x-rays because the injury was a very minor laceration. That does not need repaired. There is chronic cracking of the skindistally I think that is the area of onset of a soft tissue infection of his index finger. There is no lymphangitic streaking. There is no tenosynovitis. There is no abscess. He will be started on Augmentin 875 twice daily for 10 days. Motrin and Tylenol and follow- up. First dose antibiotic will be given here. Prescription be sent to his pharmacy. History & Record Review Discussion w/independent historian: Patient Additional record(s) reviewed:: Prior inpatient record, Prior outpatient record,Prior ED visit and Prior labs Discharge Plan Triage Chief Complaint: Laceration ED Provider: Stephan Burk Dx/Rx/DC Orders Clinical Impression: Finger infection Instructions: ED Cellulitis Prescriptions: New amoxicillin-pot clavulanate 875-125 mg tablet 1 tab PO Q12H 10 Days Qty: 20 0RF No Action guanfacine 2 mg tablet 2 mg PO QHS Qty: 30 0RF atomoxetine [Strattera] 40 mg capsule 40 mg PO DAILY amoxicillin-pot clavulanate 875-125 mg tablet 1 tab PO BID 5 Days Qty: 10 0RF Primary Care Provider: Shania Vieira [facility] Referrals: Shania Vieira [facility], [facility] [Primary Care Provider] - 3-5 Days if not improving Activity Restrictions/Additional Instructions: Take the antibiotic Augmentin 1 pill twice a day till gone. Motrin for pain and swelling and Tylenol for pain. Ice and elevate. Follow-up or return if getting worse. Are not improving. Print Language: Korean Disposition Disposition: Home, Self Care What to do if you have Problems For any increased pain, shortness of breath, bleeding, nausea or vomiting, chestpain, or any unexpected problems, contact your Primary Care Provider. Call [facility] ([phone]) or report to the closest Emergency Room. Call 911 if necessary. 01/07/25 0977 <Electronically signed by Stephan uBrk MD> Brendaigner Signature (if applicable): CC: ELOISA Vieira ~ Signed [facility] Work Phone: Evaluation note* Diagnosis Dysuria- Primary Exposure to STD Contact with or exposure to other communicable diseases documented in this encounter [facility] note* Diagnosis Pain- Primary Generalized pain documented in this encounter [facility] note* Diagnosis Cellulitis of right lower leg- Primary Cellulitis and abscess of leg, except foot Itching Unspecified pruritic disorder documented in this encounter [facility] noteNo assessment information availableWFayette County Memorial Hospital Work Phone: Evaluation note* Diagnosis Schizoaffective disorder, unspecified type (HCC)- Primary Adult ADHD Attention deficit disorder with hyperactivity Auditory hallucinations Hallucinations Acute psychosis (HCC) Unspecified psychosis Marijuana use Cannabis abuse, unspecified Financial difficulties Inadequate material resources Acute pain of left shoulder Living in temporary quarters Other specified housing or economic circumstances documented in this encounter [facility] note* Diagnosis Acute pain of left shoulder- Primary Injury of left shoulder, initial encounter documented in this encounter [facility] note* Diagnosis Pain Generalized pain [facility] instructions Additional Instructions Take the antibiotic Augmentin 1 pill twice a day till gone. Motrin for pain and swelling and Tylenol for pain. Ice and elevate. Follow-up or return if getting worse. Are not improving.[facility] Work Phone: Reason for referral (narrative)* Diagnostic Procedure Only (Routine) - Authorized Specialty Diagnoses / Procedures Referred By Contyoni t Referred To Contact XR IMAGING Diagnoses Pain Procedures XR SHOULDER GENERAL 3V OR MORE AP/TRUE AP/OTHER LEFT RADEX SHOULDER COMPLETE MINIMUM 2 VIEWS Humera Harper, RAIL MANAGER.AUTOMOTIVE SERVICE PROFESSIONAL [address] [place] [address] Xr Imaging Referral ID Status Reason Start Date Expiration Date Visits Requested Visits Authorized [id number] Authorized Auto-Generat ed Referral 01/18/2023 02/17/2024 1 1 * Diagnostic Procedure Only (Routine) - Authorized Specialty Diagnoses / Procedures Referred By Contac t Referred To Contact XR IMAGING Diagnoses Pain Procedures XR SHOULDER GENERAL 3V OR MORE AP/TRUE AP/OTHER RIGHT RADEX SHOULDER COMPLETE MINIMUM 2 VIEWS Humera Harper APRN.CNP [address] [place] [id number] Xr Imaging Referral ID Status Reason Start Date Expiration Date Visits Requested Visits Authorized [id number] Authorized Auto-Generat ed Referral 01/18/2023 02/17/2024 1 1 [facility] for referral (narrative)* Diagnostic Procedure Only (Routine) - Closed Specialty Diagnoses / Procedures Referred By Contac t Referred To Contact XR IMAGING Diagnoses Pain Procedures XR SHOULDER GENERAL 3V OR MORE AP/TRUE AP/OTHER LEFT RADEX SHOULDER COMPLETE MINIMUM 2 VIEWS Humera Harper APRN.AUTOMOTIVE SERVICE PROFESSIONAL [address] [place] [id number] [place] [address] Referral ID Status Reason Start Date Expiration Date V isits Requested Visits Authorized [id number] Closed Auto-Generate d Referral 01/18/2023 02/17/2024 1 1 * Diagnostic Procedure Only (Routine) - Closed Specialty Diagnoses / Procedures Referred By Contac t Referred To Contact XR IMAGING Diagnoses Pain Procedures XR SHOULDER GENERAL 3V OR MORE AP/TRUE AP/OTHER RIGHT RADEX SHOULDER COMPLETE MINIMUM 2 VIEWS Humera Harper APRN.CNP [address] [place] [address] [place] [address] Referral ID Status Reason Start Date Expiration Date V isits Requested Visits Authorized [id number] Closed Auto-Generate d Referral 01/18/2023 02/17/2024 1 1 [facility] for referral (narrative)No reason for referral information availableWFayette [facility] Work Phone: Summary Purpose Family History No Family History Records Found Relationship Condition Age at Onset Recorded Date/T geo mother Kidney disorder Unknown father Malignant neoplasm Unknown Advance Directives No Advanced Directives Records FoundDocuments on File Type Date Recorded 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 No January 07, 2025 8:41am Discharge Instructions * Attachments The following attachments cannot be sent through Care Everywhere. * Wound Check (Korean) documented in this encounter Assessments Diagnosis Encounter for wound re-check- Primary Encounter for other specified aftercare Chief Complaint and Reason for Visit Chief Complaint MENTAL HEALTH Chief Complaint Admit Date FINGER LAC January 07, 2025 8:41 am Reason for Referral Specialty Diagnoses / Procedures Referred By Briana gallego Referred To Contact Diagnoses Schizoaffective disorder, unspecified type (HCC) Financial difficulties Living in temporary quarters Procedures CONSULT TO SOCIAL WORK AG (SPLITTING MACHINE FEEDER) Shania Vieira APRN.AUTOMOTIVE SERVICE PROFESSIONAL [address] [place] [address] Referral ID Status Reason Start Date Expiration Date Visits Requested Visits Authorized [id number] Ref Not Required PCP Requested Referral 01/15/2024 04/14/2024 3 3 Specialty Diagnoses / Procedures Referred By Briana gallego Referred To Contact Orthopedics / [facility] DEPARTMENT Diagnoses Acute pain of left shoulder Injury of left shoulder, initial encounter Procedures CONSULT TO ORTHOPAEDICS OFFICE/OUTPATIENT NEW HIGH MDM 60 MINUTES Shania Vieira, RAIL MANAGER.AUTOMOTIVE SERVICE PROFESSIONAL [address] [place] [address] Angel Vaz MD [address] [address] Referral ID Status Reason Start Date Expiration Date Visits Requested Visits Authorized [id number] Authorized PCP Requested Referral 01/28/2024 01/27/2025 1 1 Additional Source Comments (unrecognized sect ion and content) No Status Records FoundNo Status Records FoundNo Status Records FoundNo Status Records FoundNo Status Records FoundNo Status Records FoundNo Status Records FoundNo Status Records Found INFORMATION SOURCE (unrecogn ized section and content) DATE CREATED AUTHOR 02/09/2018 [facility] DATE CREATED AUTHOR AUTHOR'S ORGANIZ ATION 01/07/2021 [facility] DATE CREATED AUTHOR AUTHOR'S ORGANIZ ATION 01/07/2022 [facility] DATE CREATED AUTHOR AUTHOR'S ORGANIZ ATION 01/30/2023 [facility] [facility] DATE CREATED AUTHOR AUTHOR'S ORGANIZ ATION 02/06/2023 [facility] DATE CREATED AUTHOR AUTHOR'S ORGANIZ ATION 06/03/2023 [facility] DATE CREATED AUTHOR AUTHOR'S ORGANIZ ATION 01/09/2025 [facility] DATE CREATED AUTHOR AUTHOR'S ORGANIZ ATION 01/14/2025 [facility] Reason for Visit (unrecogniz ed section and content) Reason Comments Wound Check Reason Onset Date Comments ED Follow Up 08/24/2022 [facility] discharg e 08/21/2022 ED outreach Reason Comments STD Wants to be checked for STD . GIRL called and said she had gonorrhea and jazmine. Feels tight clamminess per. Pt. And itches. X 1 month Reason Comments Results Reason Onset Date Comments ED outreach 04/11/2023 ED outreach [place] [facility] 04/07/2023 Reason Comments Rash Bilateral legs x 1 w eeks. Hurts Leg Pain X 1 week. Bilateral Reason Onset Date Comments ED Outreach 07/03/2023 [facility] 07/01/23 Reason Onset Date Comments ed outreach 10/02/2023 Ed outreach [id number] Reason Comments Appointment Reason Comments Establish Care Reason Comments Consult Reason Comments Radio Gen RMP Specialty Diagnoses / Procedures Referred By Contac t Referred To Contact XR IMAGING Diagnoses Pain Procedures XR SHOULDER GENERAL 3V OR MORE AP/TRUE AP/OTHER LEFT RADEX SHOULDER COMPLETE MINIMUM 2 VIEWS Humera Harper, RAIL MANAGER.AUTOMOTIVE SERVICE PROFESSIONAL [address] [place] [id number] Xr Imaging [place] [id number] Referral ID Status Reason Start Date Expiration Date V isits Requested Visits Authorized [id number] Closed Auto-Generate d Referral 01/18/2023 02/17/2024 1 1 Reason Onset Date Comments Transition Of Care 04/21/2024 Pt was admitt ed to [facility] on 04/18/2024 for ISABELLA, COVID-19. Pt was d/c on 04/19/2024 Reason Onset Date Comments ED Follow-up 01/07/2025 [facility] 2024 Source Comments (unrecognize d section and content) In the event this informatio n is protected by the Federal Confidentiality of Alcohol and Drug Abuse Patient Records regulations: The Federal rules restrict any use of the information to criminally investigate or prosecute any alcohol or drug abuse patient.[facility] the event this information is protected by the Federal Confidentiality of Alcohol and Drug Abuse Patient Records regulations: The Federal rules restrict any use of the information to criminally investigate or prosecute any alcohol or drug abuse patient.[facility] HospitalIn the event this information is protected by the Federal Confidentiality of Alcohol and Drug Abuse Patient Records regulations: The Federal rules restrict any use of the information to criminally investigate or prosecute any alcohol or drug abuse patient.[facility] HospitalIn the event this information is protected by the Federal Confidentiality of Alcohol and Drug Abuse Patient Records regulations: The Federal rules restrict any use of the information to criminally investigate or prosecute any alcohol or drug abuse patient.[facility] HospitalIn the event this information is protected by the Federal Confidentiality of Alcohol and Drug Abuse Patient Records regulations: The Federal rules restrict any use of the information to criminally investigate or prosecute any alcohol or drug abuse patient.[facility] HospitalIn the event this information is protected by the Federal Confidentiality of Alcohol and Drug Abuse Patient Records regulations: The Federal rules restrict any use of the information to criminally investigate or prosecute any alcohol or drug abuse patient.[facility] HospitalIn the event this information is protected by the Federal Confidentiality of Alcohol and Drug Abuse Patient Records regulations: The Federal rules restrict any use of the information to criminally investigate or prosecute any alcohol or drug abuse patient.[facility] HospitalIn the event this information is protected by the Federal Confidentiality of Alcohol and Drug Abuse Patient Records regulations: The Federal rules restrict any use of the information to criminally investigate or prosecute any alcohol or drug abuse patient.[facility] HospitalIn the event this information is protected by the Federal Confidentiality of Alcohol and Drug Abuse Patient Records regulations: The Federal rules restrict any use of the information to criminally investigate or prosecute any alcohol or drug abuse patient.[facility] HospitalIn the event this information is protected by the Federal Confidentiality of Alcohol and Drug Abuse Patient Records regulations: The Federal rules restrict any use of the information to criminally investigate or prosecute any alcohol or drug abuse patient.[facility] HospitalIn the event this information is protected by the Federal Confidentiality of Alcohol and Drug Abuse Patient Records regulations: The Federal rules restrict any use of the information to criminally investigate or prosecute any alcohol or drug abuse patient.[facility] HospitalIn the event this information is protected by the Federal Confidentiality of Alcohol and Drug Abuse Patient Records regulations: The Federal rules restrict any use of the information to criminally investigate or prosecute any alcohol or drug abuse patient.[facility] HospitalIn the event this information is protected by the Federal Confidentiality of Alcohol and Drug Abuse Patient Records regulations: The Federal rules restrict any use of the information to criminally investigate or prosecute any alcohol or drug abuse patient.[facility] HospitalIn the event this information is protected by the Federal Confidentiality of Alcohol and Drug Abuse Patient Records regulations: The Federal rules restrict any use of the information to criminally investigate or prosecute any alcohol or drug abuse patient.[facility] HospitalIn the event this information is protected by the Federal Confidentiality of Alcohol and Drug Abuse Patient Records regulations: The Federal rules restrict any use of the information to criminally investigate or prosecute any alcohol or drug abuse patient.[facility] HospitalIn the event this information is protected by the Federal Confidentiality of Alcohol and Drug Abuse Patient Records regulations: The Federal rules restrict any use of the information to criminally investigate or prosecute any alcohol or drug abuse patient.[facility] HospitalIn the event this information is protected by the Federal Confidentiality of Alcohol and Drug Abuse Patient Records regulations: The Federal rules restrict any use of the information to criminally investigate or prosecute any alcohol or drug abuse patient.[facility] Care Teams (unrecognized sec tion and content) Health Insurance Assessor Relationship Specialty Start Date End Date Shania Vieira APRN.[facility] [address] [place] [address] PCP - General Family Practice 05/17/20 Health Insurance Assessor Relationship Specialty Start Date End Date Shania Vieira, RAIL MANAGER.AUTOMOTIVE SERVICE PROFESSIONAL [address] [place] [address] PCP - General Family Medicine 05/17/20 Health Insurance Assessor Relationship Specialty Start Date End Date Shania Vieira, RAIL MANAGER.AUTOMOTIVE SERVICE PROFESSIONAL [address] [facility] [facility] [place] [address] PCP - General Family Medicine 05/17/20 Health Insurance Assessor Relationship Specialty Start Date End Date Shania Vieira, RAIL MANAGER.AUTOMOTIVE SERVICE PROFESSIONAL [address] [facility] [facility] [place] [address] PCP - General Family Medicine 05/17/20 Health Insurance Assessor Relationship Specialty Start Date End Date Shania Vieira, RAIL MANAGER.AUTOMOTIVE SERVICE PROFESSIONAL [address] [facility] [facility] [place] [address] PCP - General Family Medicine 05/17/20 Health Insurance Assessor Relationship Specialty Start Date End Date Shania Vieira, RAIL MANAGER.AUTOMOTIVE SERVICE PROFESSIONAL [address] [place] [place] [address] PCP - General Family Medicine 05/17/20 Health Insurance Assessor Relationship Specialty Start Date End Date Shania Vieira, RAIL MANAGER.AUTOMOTIVE SERVICE PROFESSIONAL [address] [facility] [place] [address] PCP - General Family Medicine 05/17/20 Health Insurance Assessor Relationship Specialty Start Date End Date Shania Vieira, RAIL MANAGER.AUTOMOTIVE SERVICE PROFESSIONAL [address] [place] [place] [address] PCP - General Family Medicine 05/17/20 Health Insurance Assessor Relationship Specialty Start Date End Date Shania Vieira, RAIL MANAGER.AUTOMOTIVE SERVICE PROFESSIONAL [address] [place], [place] [id number] PCP - General Family Medicine 05/17/20 Team Status: Active Member Role Status Dates No Primary Care Physician Primary Care Provider Active Team Status: Inactive Member Role Status Dates Dr. Jose E Meier DO Emergency Provider Active No Primary Care Physician Primary Care Provider Active Health Insurance Assessor Relationship Specialty Start Date End Date Shania Vieira, RAIL MANAGER.AUTOMOTIVE SERVICE PROFESSIONAL [address] [place] [address] PCP - General Family Medicine 01/15/24 Health Insurance Assessor Relationship Specialty Start Date End Date Shania Vieira, RAIL MANAGER.AUTOMOTIVE SERVICE PROFESSIONAL [address] [place], [place] [id number] PCP - General Family Medicine 01/15/24 Health Insurance Assessor Relationship Specialty Start Date End Date Shania Vieira, RAIL MANAGER.AUTOMOTIVE SERVICE PROFESSIONAL [address] [place], [place] [id number] PCP - General Family Medicine 05/17/20 12/16/23 Health Insurance Assessor Relationship Specialty Start Date End Date Shania Vieira, RAIL MANAGER.AUTOMOTIVE SERVICE PROFESSIONAL [address] [place] [address] PCP - General Family Medicine 01/15/24 Team Status: Active Member Role Status Dates Shania Vieira EDGE BANDER HAND, EDGE BANDER HAND-C Primary Care Provider Active Team Status: Inactive Member Role Status Dates Shania Vieira EDGE BANDER HAND, EDGE BANDER HAND-C Primary Care Provider Active Start: January 07, 2025 End: January 07, 2025 Dr. Stephan Burk MD Emergency Provider Active S tart: January 07, 2025 End: January 07, 2025 Health Insurance Assessor Relationship Specialty Start Date End Date Shania Vieira, RAIL MANAGER.AUTOMOTIVE SERVICE PROFESSIONAL [address] [place] [address] PCP - General Family Medicine 01/15/24 <item> Privacy Markings (unrecogniz ed section and content) Section Author: Sara Rudd PROHIBITION ON REDISCLOSURE OF CONFIDENTIAL INFORMATION This notice accompanies a disclosure of information concerning a client made to you with the consent of such client. Goals (unrecognized section and content) Goals may be documented in a n alternate sectionGoals may be documented in an alternate section FOR RECORDS PERTAINING TO PATIENTS WHO ARE OR HAVE BEEN ENROLLED IN A CHEMICAL DEPENDENCY/SUBSTANCEABUSE PROGRAM, SOME INFORMATION MAY BE OMITTED. This clinical summary was aggregated from multiple sources. Caution should be exercised in using it in the provision of clinical care. This summary normalizes information from multiple sources, and as a consequence, information in this document may materially change the coding, format and clinical context of patient data. In addition, data may be omitted in some cases. CLINICAL DECISIONS SHOULD BE BASED ON THE PRIMARY CLINICAL RECORDS. [employer] [facility]. provides no warranty or guarantee of the accuracy or completeness of information in this document.
--- OUTSIDE RECORDS SUMMARY | 2025-01-21 22:58 | XMS RPT_ITS | CCD ---
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 [place], [place], [address] Emergency Department Summary on 04-18-2024 Emergency Department Summary [facility] Medical Records Department [address] [facility] [place] [address] Emergency Department Summary 04/18/24 MR#: [id number] Acct: [id number] Name: GABRIELA VIDAL Jr. Rep #: [id number] : 1990 33 From: Esteban Medel DO PCP: ELOISA Braden Status:ADM IN Location: [address] History of Present Illness Chief Complaint: [...] viral st (more content not included)... Normal [facility] Erythrocyte Sed Rateon 04-18 SED RATE Normal 0-20 [facility] Comment on above: Result Comment: JIMMY ASKEW,RN AWARE OF CANCELLING, SHE WILL INFORM Performed By: #### M 100637, M100.6796 #### [facility] [address] [place], [place], [address] (302) Ferritinon 04-18-2024 Ferritin [Mass/Vol] 175 ng/mL Normal 26-388 [facility] Comment on above: Order Comment: Comme nts: May add to ED labsmay add to ED labs Performed By: #### M 100.637, M100.6796 #### [facility] [address] [place], [place], [address] ([address] H AND P Exam - Hospitaliston 04-18-2024 H&P Exam - Hospitalist [facility] Medical Records Department [address] [place] [address] H P Exam - Hospitalist 04/18/24 0228 MR#: [id number] Acct: [id number] Name: GABRIELA VIDAL Jr. Rep #: [id number] : 1990 33 From: Lucero Vidal MD PCP: Shania Vieira, [employer]ENTAL REPRESENTATIVE-C Status:ADM IN Location: MS3 MSED-2 HPI - [...] per prior records) who presents to the [facility] ED on 04/18/24 with history of onset [...] Examination: Genera (more content not included)... Normal [facility] HIV - WCHon 04-18-2024 HIV Non-Reactive Normal Nonreactive [facility] Comment on above: Order Comment: Reaso n for Exam: Hx polysubstance abuseReason for Exam: Hepatitis Screen Performed By: #### L 509.8000, L3890.6005, L3890.6100, L3890.6200, L3890.6300 ####[facility] [address] [place], [address] Hepatitis B Surface Antibody on 04-18-2024 HEP B Surf Ab Non-Reactive Normal [facility] Comment on above: Order Comment: Reaso n for Exam: Hx polysubstance abuseReason for Exam: Hepatitis Screen Result Comment: Non Reactive: Inconsistent with immunity less than <10 mIU/mL Reactive: Consistent with immunity greater than or equal to 10 mIU/mL Performed By: #### L 509.8000, L3890.6005, L3890.6100, L3890.6200, L3890.6300 ####[facility] [address] [place], [place], [address] Hepatitis B Surface Antigeno n 04-18-2024 HEP B Surf Ag Non-Reactive Normal Nonreactive [facility] Comment on above: Order Comment: Reaso n for Exam: Hx polysubstance abuseReason for Exam: Hepatitis Screen Performed By: #### L 509.8000, L3890.6005, L3890.6100, L3890.6200, L3890.6300 ####[facility] [address] [place], [address] Hepatitis C Antibodyon 04-18 Hepatitis C AB Non-Reactive Normal Nonreactive [facility] Comment on above: Order Comment: Reaso n for Exam: Hx polysubstance abuseReason for Exam: Hepatitis Screen Result Comment: Non Reactive: < 0.8 Equivocal: >/= 0.8 to < 1.0 Reactive: >/= 1.0 [facility] requires that a reactive/equivocal HCV antibody result be sent out for confirmation. HCV Quant by PCR testing. Performed By: #### L 509.8000, L3890.6005, L3890.6100, L3890.6200, L3890.6300 ####[facility] [address] [place], [address] L509.8000on 04-18-2024 Syphilis Abs Non-Reactive Normal [facility] Comment on above: Order Comment: Reaso n for Exam: Hx polysubstance abuseReason for Exam: Hepatitis Screen Performed By: #### L 509.8000, L3890.6005, L3890.6100, L3890.6200, L3890.6300 ####[facility] [address] [place], [place], [address] LDHon 04-18-2024 LDH 338 U/L High 87-241 [facility] Comment on above: Order Comment: Comme nts: May add to ED labsmay add to ED labs Performed By: #### M 100.637, M100.6796 #### [facility] [address] [place], [place], [address] Lipaseon 04-18-2024 Lipase [Catalytic activity/Vol] 17 U/L Normal 13-75 [facility] Comment on above: Result Comment: Aniyah castañeda note: LIPASE revised reference range effective 22. New Lipase methodology. Expected to produce lower values than the previous assay method. NEW Reference Range: 13 - 75 U/L Performed By: #### L 100.0100, L501.2450, L500.2500, L500.3400, L501.5200 #### [facility] [address] [place], [address] Liver Profileon 04-18-2024 Albumin [Mass/Vol] 4.8 g/dL Normal 3.2-5.0 [facility] Comment on above: Performed By: #### L 100.0100, L501.2450, L500.2500, L500.3400, L501.5200 #### [facility] [address] [place], [address] ALK P 85 U/L Normal 45-117 [facility] Comment on above: Performed By: #### L 100.0100, L501.2450, L500.2500, L500.3400, L501.5200 #### [facility] [address] [place], [address] ALT [Catalytic activity/Vol] 61 U/L Normal 16-61 [facility] Comment on above: Performed By: #### L 100.0100, L501.2450, L500.2500, L500.3400, L501.5200 #### [facility] [address] [place], [address] AST [Catalytic activity/Vol] 59 U/L High 15-37 [facility] Comment on above: Performed By: #### L 100.0100, L501.2450, L500.2500, L500.3400, L501.5200 #### [facility] [address] [place], [address] Bilirubin [Mass/Vol] 1.50 mg/dL High 0.20-1.00 [facility] Comment on above: Result Comment: For patients on eltrombopag therapy, use of Dimension [place] TBIL is not recommended. Performed By: #### L 100.0100, L501.2450, L500.2500, L500.3400, L501.5200 #### [facility] [address] [place], [address] Bilirubin.direct [Mass/Vol] 0.37 mg/dL High 0.00-0.30 [facility] Comment on above: Performed By: #### L 100.0100, L501.2450, L500.2500, L500.3400, L501.5200 #### [facility] [address] [place], [address] Globulin (S) [Mass/Vol] 3.6 g/dL Normal 2.2-4.2 [facility] Comment on above: Performed By: #### L 100.0100, L501.2450, L500.2500, L500.3400, L501.5200 #### [facility] [address] [place], [address] T PROT 8.4 g/dL High 6.4-8.2 [facility] Comment on above: Performed By: #### L 100.0100, L501.2450, L500.2500, L500.3400, L501.5200 #### [facility] [address] [place], [address] M100.678on 04-18-2024 M100.678 Copy of report sent to Infection Control Printer MS#[id number] 04/18/24 1335 ERICKA. CRITICAL VALUE [facility] 04/18/24 0122 Abundio Leon. RESULTS READ BACK BY SAME. SARS-CoV-2 (COVID 19) A Positive A INFLUENZA A Negative INFLUENZA B Negative RSV PCR Negative SARS-CoV-2 (COVID 19 PCR) Normal [facility] Comment on above: Performed By: #### M 100.678 ####[facility] [address] [place], [address] Magnesiumon 04-18-2024 Magnesium [Mass/Vol] 2.2 mg/dL Normal 1.6-2.6 [facility] Comment on above: Performed By: #### L 100.0100, L501.2450, L500.2500, L500.3400, L501.5200 #### [facility] [address] [place], [address] Procalcitoninon 04-18-2024 Procalcitonin 3.46 ng/mL High 0.00-0.09 [facility] Comment on above: Result Comment: A [...] Performed By: #### M 100.637, M1.96 #### [facility] [address] [facility] [address] [place], [place], [address] Urine Drug Screen (VISTA)on 04-18-2024 AMPHETAMINES Positive Abnormal <1000 ng/mL [facility] Comment on above: Performed By: #### M 100.637, M1.96 #### [facility] [address] [place], [address] BARBITIURATES Negative Normal < 200 ng/mL [facility] Comment on above: Performed By: #### M 100.637, M1.6796 #### [facility] [address] [place], [address] BENZODIAZIPINE Negative Normal < 200 ng/mL [facility] Comment on above: Performed By: #### M 100.637, M1.96 #### [facility] [address] [place], [address] COCAINE Negative Normal < 300 ng/mL [facility] Comment on above: Performed By: #### M 100.637, M196 #### [facility] [address] [place], [address] ECSTACY Positive Abnormal < 500 ng/mL [facility] Comment on above: Performed By: #### M 100.637, 96 #### [facility] [address] [place], [address] METHADONE Negative Normal < 300 ng/mL [facility] Comment on above: Performed By: #### M 100.637, 96 #### [facility] [address] [place], [address] OPIATES Negative Normal < 300 ng/mL [facility] Comment on above: Performed By: #### M 100.637, 96 #### [facility] [address] [place], [address] PCP Negative Normal < 25 ng/mL [facility] Comment on above: Performed By: #### M 100.637, 96 #### [facility] [address] [place], [address] THC Positive Abnormal < 50 ng/mL [facility] Comment on above: Performed By: #### M 100.637, M196 #### [facility] [address] [place], [address] VISTA UDS PH 3 Normal [facility] Comment on above: Performed By: #### M 100.637, M196 #### [facility] [address] [place], [address] CNPNon 01-28-2024 CNPN Telephone (AGFAMPLE) GABRIELA VIDAL JR. ([id number]) 1990 M Date Time Provider Department 01/28/24 SHANIA VIEIRA During your visit today, we recorded the following information about you: Gracy Doss 01/28/2024 11:45 AM Signed Patient came to office because he is still in pain. Referral was give for Dr De Santiago. Please enter referral to patient chart. Thanks Shania Vieira APRN.BLUEPRINTER 01/28/2024 12:13 PM Signed Referral placed to orthopedics/sports medicine Allergies As of Date: 01/28/2024 (No Known Allergies) Date Reviewed: 01/15/2024 Reviewed by: Shania Vieira APRN.BLUEPRINTER - Fully Assessed Reason for Visit: Consult [502] Primary Visit Diagnosis:Acute pain of left shoulder [M25.512] Other Visit Diagnosis:Injury of left shoulder, initial encounter [S49.92XA] Order(s):CONSULT TO ORTHOPAEDICS [9026] Order #: [id number]: 1 FUTURE Prescriptions as of 01/28/2024 - [...] Encounter Status:Closed by SHANIA VIEIRA on 01/28/24 [facility] Absolute lymphocyte countOrd ered By: Jose E Meier on 09-28-2023 Lymphocytes Auto (Unsp spec) [#/Vol] 1.95 10*3/uL 0.83-4.51 [facility] Automated lymphocyte count a s percentage of total leukocytesOrdered By: Jose E Meier on 09-28-2023 Lymphocytes/100 WBC Auto (Unsp spec) 19.5 % 19-41 [facility] Basophil percentageOrdered B y: Jose E Meier on 09-28-2023 Basophils/100 WBC (Bld) 0.5 % 0-1 [facility] Chloride [Moles/Vol] 113 mmol/L 98-107 [facility] Eosinophils/100 WBC (Bld) 0.3 % 0-5 [facility] Glucose [Mass/Vol] 114 mg/dL 74-106 [facility] Comment on above: Fasting Glucose resu lt from 100 to 125 mg/dL suggests IMPAIRED HOMEOSTASIS per A.D.A. criteria. Hemoglobin (Bld) [Mass/Vol] 14.9 g/dL 13.0-16.5 [facility] Monocytes/100 WBC (Bld) 5.9 % 0-10 [facility] Neutrophils (Bld) [#/Vol] 7.3 10*3/uL 2.0-7.7 [facility] Neutrophils/100 WBC (Bld) 73.3 % 47-70 [facility] Potassium [Moles/Vol] 3.7 mmol/L 3.5-5.1 [facility] Sodium [Moles/Vol] 143 mmol/L 136-145 [facility] WBC (Bld) [#/Vol] 10.0 10*3/uL 4.4-11.0 [facility] Determination of erythrocyte mean corpuscular volume (MCV)Ordered By: Jose E Meier on 09-28-2023 MCV (RBC) [Entitic vol] 89.6 fL 80-94 [facility] Erythrocyte distribution wid th ratioOrdered By: Jose E Meier on 09-28-2023 Erythrocyte distribution width (RBC) [Ratio] 12.3 % 11.6-14.6 [facility] Erythrocyte distribution wid th standard deviationOrdered By: Jose E Meier on 09-28-2023 Erythrocyte distribution width (RBC) [Entitic vol] 40.1 fL 35.1-43.9 [facility] Hematocrit Auto (Bld) [Volum e fraction]Ordered By: Jose E Meier on 09-28-2023 Hematocrit (Bld) [Volume fraction] 44.8 % 40-54 [facility] Immature granulocytes/100 WB C Auto (Bld)Ordered By: Jose E Meier on 09-28-2023 Immature granulocytes/100 WBC (Bld) 0.500 % 0.0-0.9 [facility] Comment on above: IG% - Immature Granu locytes (promyelocytes, myelocytes and metamyelocytes) > 1% indicates that a LEFT SHIFT is Present. Laboratory - Chemistry and C hemistry - challengeOrdered By: Jose E Meier on 09-28-2023 CO2 [Moles/Vol] 28.0 mmol/L 21.0-32.0 [facility] Urea nitrogen/Creatinine [Mass ratio] 15.7 mg/mg 10-20 [facility] - Drug toxicology Ordered By: Jose E Meier on 09-28-2023 Amphetamines Ql (U) Negative <1000 ng/mL [facility] Benzodiazepines Ql (U) Negative < 200 ng/mL [facility] Cannabinoids Screen Ql (U) Positive < 50 ng/mL [facility] Cocaine Ql (U) Negative < 300 ng/mL [facility] Opiates Ql (U) Negative < 300 ng/mL [facility] - Hematology and Cell countsOrdered By: Jose E Meier on 09-28-2023 MCH (RBC) [Entitic mass] 29.8 pg 27.0-32.0 [facility] MCHC (RBC) [Mass/Vol] 33.3 g/dL 32-36 [facility] Nucleated RBC/100 WBC (Bld) [Ratio] 0 % 0-5 [facility] Platelet mean volume (Bld) [Entitic vol] 10.8 fL 6.2-12.0 [facility] Platelets (Bld) [#/Vol] 256 10*3/uL 150-450 [facility] - Microbiology an d Antimicrobial susceptibilityOrdered By: Jose E Meier on 09-28-2023 SARS-CoV-2 (COVID-19) RNA CARLOS+probe Ql (Unsp spec) [facility] No Panel InformationOrdered By: Jose E Meier on 09-28-2023 Estimated Creatinine Clearance Calc 105.36 ml/min [facility] Estimated GFR (MDRD) Amer 107 mL/min >60 [facility] Comment on above: GFR Calc Estimated GFR (MDRD) Non-Af Amer 88 mL/min >60 [facility] Comment on above: Non- GFR Calc Ethyl Alcohol Level 4.0 mg/dL [facility] Comment on above: The serum:whole bloo d ethanol ratio is approximately 1.14and varies slightly with hematocrit. Medical Alcohol reference interval and critical value innon-tolerant individuals; 50 - 100 Impairment 100 Intoxication 100 - 250 Severe Poisoning 250 - 400 Deep/possible fatal coma MDMA (Ecstasy) Screen Negative < 500 ng/mL [facility] Urine Barbiturates Screen Negative < 200 ng/mL [facility] Urine Drug Screen Comment [facility] Comment on above: CONFIRMATORY TESTING FOR [...] Methadone Screen Negative < 300 ng/mL [facility] RBC Auto (Bld) [#/Vol]Ordere d By: Jose E Meier on 09-28-2023 RBC (Bld) [#/Vol] 5.00 10*6/uL 4.6-6.2 [facility] Serum or plasma calcium jacob urement (mass/volume)Ordered By: Jose E Meier on 09-28-2023 Calcium [Mass/Vol] 8.7 mg/dL 8.5-10.1 [facility] Serum or plasma creatinine m easurement (mass/volume)Ordered By: Jose E Meier on 09-28-2023 Creatinine [Mass/Vol] 1.02 mg/dL 0.70-1.30 [facility] Comment on above: The validity of the calculated GFR & GFRAA in patients over 70 years has not been determined. Clinical correlation is essential. Serum or plasma urea nitroge n measurement (mass/volume)Ordered By: Jose E Meier on 09-28-2023 Urea nitrogen [Mass/Vol] 16 mg/dL 7-18 [facility] Thin prep Papanicolaou smear with manual screeningOrdered By: Jose E Meier on 09-28-2023 Thin prep Papanicolaou smear with manual screening 2 5-15 [facility] Urine phencyclidine (PCP) de tectionOrdered By: Jose E Meier on 09-28-2023 Phencyclidine Ql (U) Negative < 25 ng/mL [facility] ALLIED HEALTHon 01-29-2023 ALLIED HEALTH HNO ID: [id number] Author: RT Latoya(R) Service: Radiology Author Type: Shipping Support Type: Allied Health Filed: 01/29/2023 1:10 PM [...] RT Latoya(R) January 29, 2023 1:10 PM [facility] CBC W Auto Differential pane l (Bld)on 01-29-2023 Basophils (Bld) [#/Vol] 0.03 10*3/uL Normal <0.11 [facility] Comment on above: Order Comment: Speci men Type: BLOOD SPECIMEN Ordering Facility: [facility] Address: [address] [place] [address] Performed By: #### 5 7021-8 #### [facility] CLIA [id number] [place] [address] [place] Basophils/100 WBC (Bld) 0.5 % Normal [facility] Comment on above: Order Comment: Speci men Type: BLOOD SPECIMEN Ordering Facility: [facility] Address: [address] [place] [address] Performed By: #### 5 7021-8 #### [facility] CLIA [id number] [address] [place] [address] [place] Differential cell count method Nom (Bld) Auto [facility] Comment on above: Order Comment: Speci men Type: BLOOD SPECIMEN Ordering Facility: [facility] Address: [address] [place] [address] Performed By: #### 5 7021-8 #### [facility] CLIA [id number] [address] [place] [address] [place] Eosinophils (Bld) [#/Vol] 0.16 10*3/uL Normal <0.46 [facility] Comment on above: Order Comment: Speci men Type: BLOOD SPECIMEN Ordering Facility: [facility] Address: [address] [place] [address] Performed By: #### 5 7021-8 #### [facility] CLIA [id number] [address] [place] [address] [place] Eosinophils/100 WBC (Bld) 2.4 % [facility] Comment on above: Order Comment: Speci men Type: BLOOD SPECIMEN Ordering Facility: [facility] Address: [address] [address] Performed By: #### 5 7021-8 #### [facility] CLIA [id number] [address] [place] [address] [place] Erythrocyte distribution width (RBC) [Ratio] 12.7 % Normal 11.5-15.0 [facility] Comment on above: Order Comment: Speci men Type: BLOOD SPECIMEN Ordering Facility: [facility] Address: [address] [address] Performed By: #### 5 7021-8 #### [facility] CLIA [id number] [address] [place] [address] [place] Hematocrit (Bld) [Volume fraction] 39.3 % Normal 39.0-51.0 [facility] Comment on above: Order Comment: Speci men Type: BLOOD SPECIMEN Ordering Facility: [facility] Address: [address] [address] Performed By: #### 5 7021-8 #### [facility] IA [id number] [address] [place] [address] [place] Hemoglobin (Bld) [Mass/Vol] 13.1 g/dL Normal 13.0-17.0 [facility] Comment on above: Order Comment: Speci men Type: BLOOD SPECIMEN Ordering Facility: [facility] Address: [address] [address] Performed By: #### 5 7021-8 #### [facility] CLIA [id number] [address] [place] [address] [place] Immature granulocytes (Bld) [#/Vol] 0.03 10*3/uL Normal <0.10 [facility] Comment on above: Order Comment: Speci men Type: BLOOD SPECIMEN Ordering Facility: [facility] Address: [address] [address] Performed By: #### 5 7021-8 #### [facility] CLIA [id number] [address] [place] [address] [place] Immature granulocytes/100 WBC (Bld) 0.5 % Normal [facility] Comment on above: Order Comment: Speci men Type: BLOOD SPECIMEN Ordering Facility: [facility] Address: [address] [place] [address] Performed By: #### 5 7021-8 #### [facility] CLIA [id number] [place] [address] [place] Lymphocytes (Bld) [#/Vol] 3.11 10*3/uL Normal 1.00-4.00 [facility] Comment on above: Order Comment: Speci men Type: BLOOD SPECIMEN Ordering Facility: [facility] Address: [address] [place] [address] Performed By: #### 5 7021-8 #### [facility] CLIA [id number] [place] [address] [place] Lymphocytes/100 WBC (Bld) 47.3 % Normal [facility] Comment on above: Order Comment: Speci men Type: BLOOD SPECIMEN Ordering Facility: [facility] Address: [address] [place] [address] Performed By: #### 5 7021-8 #### [facility] CLIA [id number] [address] [place] [address] [place] MCH (RBC) [Entitic mass] 30.0 pg Normal 26.0-34.0 [facility] Comment on above: Order Comment: Speci men Type: BLOOD SPECIMEN Ordering Facility: [facility] Address: [address] [place] [address] Performed By: #### 5 7021-8 #### [facility] CLIA [id number] [place] [address] [place] MCHC (RBC) [Mass/Vol] 33.3 g/dL Normal 30.5-36.0 [facility] Comment on above: Order Comment: Speci men Type: BLOOD SPECIMEN Ordering Facility: [facility] Address: [address] [place] [address] Performed By: #### 5 7021-8 #### [facility] CLIA [id number] [place] [address] [place] MCV (RBC) [Entitic vol] 90.1 fL Normal 80.0-100.0 [facility] Comment on above: Order Comment: Speci men Type: BLOOD SPECIMEN Ordering Facility: [facility] Address: [address] [place] [address] Performed By: #### 5 7021-8 #### [facility] CLIA [id number] [address] [place] [address] [place] Monocytes (Bld) [#/Vol] 0.65 10*3/uL Normal <0.87 [facility] Comment on above: Order Comment: Speci men Type: BLOOD SPECIMEN Ordering Facility: [facility] Address: [address] [place] [address] Performed By: #### 5 7021-8 #### [facility] CLIA [id number] [address] [place] [address] [place] Monocytes/100 WBC (Bld) 9.9 % Normal [facility] Comment on above: Order Comment: Speci men Type: BLOOD SPECIMEN Ordering Facility: [facility] Address: [address] [place] [address] Performed By: #### 5 7021-8 #### [facility] CLIA [id number] [address] [place] [address] [place] Neutrophils (Bld) [#/Vol] 2.59 10*3/uL Normal 1.45-7.50 [facility] Comment on above: Order Comment: Speci men Type: BLOOD SPECIMEN Ordering Facility: [facility] Address: [address] [place] [address] Performed By: #### 5 7021-8 #### [facility] CLIA [id number] [place] [address] [place] Neutrophils/100 WBC (Bld) 39.4 % Normal [facility] Comment on above: Order Comment: Speci men Type: BLOOD SPECIMEN Ordering Facility: [facility] Address: [address] [address] Performed By: #### 5 7021-8 #### [facility] CLIA [id number] [address] [place] [address] [place] Nucleated RBC (Bld) [#/Vol] 10*3/uL Normal <0.01 [facility] Comment on above: Order Comment: Speci men Type: BLOOD SPECIMEN Ordering Facility: [facility] Address: [address] [address] Performed By: #### 5 7021-8 #### [facility] CLIA [id number] [address] [place] [address] [place] Nucleated RBC/100 WBC (Bld) [Ratio] 0.0 /100 WBC Normal [facility] Comment on above: Order Comment: Speci men Type: BLOOD SPECIMEN Ordering Facility: [facility] Address: [address] [address] Performed By: #### 5 7021-8 #### [facility] CLIA [id number] [address] [place] [address] [place] Platelet mean volume (Bld) [Entitic vol] 10.9 fL Normal 9.0-12.7 [facility] Comment on above: Order Comment: Speci men Type: BLOOD SPECIMEN Ordering Facility: [facility] Address: [address] [address] Performed By: #### 5 7021-8 #### [facility] CLIA [id number] [address] [place] [address] [place] Platelets (Bld) [#/Vol] 209 10*3/uL Normal 150-400 [facility] Comment on above: Order Comment: Speci men Type: BLOOD SPECIMEN Ordering Facility: [facility] Address: [address] [place] [address] Performed By: #### 5 7021-8 #### [facility] CLIA [id number] RBC (Bld) [#/Vol] 4.36 10*6/uL Normal 4.20-6.00 [facility] Comment on above: Order Comment: Speci men Type: BLOOD SPECIMEN Ordering Facility: [facility] Address: [address] [place] [address] Performed By: #### 5 7021-8 #### [facility] CLIA [id number] [address] [place] [address] WBC (Bld) [#/Vol] 6.57 10*3/uL Normal 3.70-11.00 [facility] Comment on above: Order Comment: Speci men Type: BLOOD SPECIMEN Ordering Facility: [facility] Address: [address] [place] [address] Performed By: #### 5 7021-8 #### [facility] CLIA [id number] [address] [place] [address] [place] [facility] [place] Comprehensive metabolic 2000 panelon 01-29-2023 Albumin [Mass/Vol] 3.6 g/dL Low 3.9-4.9 [facility] Comment on above: Order Comment: Speci men Type: BLOOD SPECIMEN Ordering Facility: [facility] Address: [address] [place] [address] Performed By: #### 1 9123-9, [id number], 37464-3 #### [facility] CLIA [id number] [address] [place] [address] [place] ALP [Catalytic activity/Vol] 46 U/L Normal 38-113 [facility] Comment on above: Order Comment: Speci men Type: BLOOD SPECIMEN Ordering Facility: [facility] Address: [address] [place] [address] Performed By: #### 1 9123-9, [id number], 85687-9 #### [facility] CLIA [id number] [address] [place] [address] [place] ALT [Catalytic activity/Vol] 13 U/L Normal 10-54 [facility] Comment on above: Order Comment: Speci men Type: BLOOD SPECIMEN Ordering Facility: [facility] Address: [address] [address] Performed By: #### 1 9123-9, [id number], #### [facility] CLIA [id number] [place] [address] [place] Anion gap [Moles/Vol] 7 mmol/L Low 9-18 [facility] Comment on above: Order Comment: Speci men Type: BLOOD SPECIMEN Ordering Facility: [facility] Address: [address] [address] Performed By: #### 1 9123-9, [id number], #### [facility] CLIA [id number] [address] [place] [address] [place] AST [Catalytic activity/Vol] 16 U/L Normal 14-40 [facility] Comment on above: Order Comment: Speci men Type: BLOOD SPECIMEN Ordering Facility: [facility] Address: [address] [address] Performed By: #### 1 9123-9, [id number], #### [facility] CLIA [id number] [address] [place] [address] [place] Bilirubin [Mass/Vol] 0.4 mg/dL Normal 0.2-1.3 [facility] Comment on above: Order Comment: Speci men Type: BLOOD SPECIMEN Ordering Facility: [facility] Address: [address] Performed By: #### 1 9123-9, [id number], #### [facility] CLIA [id number] [address] [place] [address] [place] Calcium [Mass/Vol] 8.4 mg/dL Low 8.5-10.2 [facility] Comment on above: Order Comment: Speci men Type: BLOOD SPECIMEN Ordering Facility: [facility] Address: [address] [address] Performed By: #### 1 9123-9, [id number], 90559-2 #### [facility] CLIA [id number] [place] [address] [place] Chloride [Moles/Vol] 108 mmol/L High 97-105 [facility] Comment on above: Order Comment: Speci men Type: BLOOD SPECIMEN Ordering Facility: [facility] Address: [address] [place] [address] Performed By: #### 1 9123-9, [id number], 28296-1 #### [facility] CLIA [id number] [address] [place] [address] [place] CO2 [Moles/Vol] 26 mmol/L Normal 22-30 [facility] Comment on above: Order Comment: Speci men Type: BLOOD SPECIMEN Ordering Facility: [facility] Address: [address] [place] [address] Performed By: #### 1 9123-9, [id number], #### [facility] CLIA [id number] [address] [place] [address] [place] Creatinine [Mass/Vol] 1.14 mg/dL Normal 0.73-1.22 [facility] Comment on above: Order Comment: Speci men Type: BLOOD SPECIMEN Ordering Facility: [facility] Address: [address] [place] [address] Performed By: #### 1 9123-9, [id number], #### [facility] CLIA [id number] [address] [place] [address] [place] ESTIMATED GLOMERULAR FILTRATION RATE 87 mL/min/1.73m??? Normal >=60 [facility] Comment on above: Order Comment: Speci men Type: BLOOD SPECIMEN Ordering Facility: [facility] Address: [address] [place] [address] Result Comment: Cathy mated Glomerular Filtration Rate [...] actual GFR. Performed By: #### 1 9123-9, [id number], #### [facility] CLIA [id number] [id number] [place] Glucose [Mass/Vol] 115 mg/dL High 74-99 [facility] Comment on above: Order Comment: Cristela ness Type: BLOOD SPECIMEN Ordering Facility: [facility] Address: [address] [place] [address] Result Comment: The [place] [employer] (ADA) provides guidance for cutoff [...] Standards of Medical Care in Diabetes 2016, [place] [employer]. Diabetes Care. 2016.39(Suppl 1). Performed By: #### 1 9123-9, [id number], #### [facility] CLIA [id number] [id number] [place] Potassium [Moles/Vol] 4.1 mmol/L Normal 3.7-5.1 [facility] Comment on above: Order Comment: Cristela ness Type: BLOOD SPECIMEN Ordering Facility: [facility] Address: [address] [place] [address] Performed By: #### 1 9123-9, [id number], #### [facility] CLIA [id number] [id number] [place] Protein [Mass/Vol] 5.5 g/dL Low 6.3-8.0 [facility] Comment on above: Order Comment: Speci men Type: BLOOD SPECIMEN Ordering Facility: [facility] Address: [address] [address] Performed By: #### 1 9123-9, [id number], 05952-8 #### [facility] CLIA [id number] [place] [address] [place] Sodium [Moles/Vol] 141 mmol/L Normal 136-144 [facility] Comment on above: Order Comment: Speci men Type: BLOOD SPECIMEN Ordering Facility: [facility] Address: [address] [address] Performed By: #### 1 9123-9, [id number], 98105-3 #### [facility] CLIA [id number] [address] [place] [address] [place] Urea nitrogen [Mass/Vol] 12 mg/dL Normal 9-24 [facility] Comment on above: Order Comment: Speci men Type: BLOOD SPECIMEN Ordering Facility: [facility] Address: [address] [address] Performed By: #### 1 9123-9, [id number], 52890-8 #### [facility] CLIA [id number] [address] [place] [address] [place] ECG COMPLETEon 01-29-2023 ECG COMPLETE Ventricular Rate : 7 8 BPM Atrial Rate : 78 BPM P-R Interval : 160 ms QRS Duration : 122 ms Q-T Interval : 374 ms QTC Calculation(Bazett) : 426 ms Calculated P [place] : 64 degrees Calculated R [place] : 82 degrees Calculated T [place] : 49 degrees Sinus rhythm IVCD, consider atypical RBBB ST elevation suggests acute pericarditis Abnormal ECG no stemi Confirmed by BENITO MATHIS, ERIK ([id number]), visual effects editor SUZI BRUNO ([id number]) on 01/30/2023 10:18:17 AM NAME : GABRIELA VIDAL PID : [id number] : 1990 Gender : Male Race : ORD : [id number] Procedure Date : Jan 29 2023 12:34:12 Edit Date : Jan 30 2023 10:18:21 Diagnosis: Sinus rhythm IVCD, consider atypical RBBB ST elevation suggests acute pericarditis Abnormal ECG no stemi Confirmed by ERIK DAVIS MD ([id number]), visual effects editor SUZI BRUNO ([id number]) on 01/30/2023 10:18:17 AM Test Reason : Chest Pain Location : 18 : ED [id number] Overread By : ERIK DAVIS MD Edited By : SUZI BRUNO Referred By : , Acquired by : , [facility] ED NOTEon 01-29-2023 ED NOTE HNO ID: [id number] Author: Juliana Aguilera RN Service: Nursing Author [...] Pt ambulatory with steady gait on departure. [facility] ED NOTE HNO ID: [id number] Author: Juliana Aguilera RN Service: Nursing Author [...] up, bed in locked and low position [facility] ED NOTE HNO ID: [id number] Author: Anabel Hernandez RN Service: ? Author Type: Registered Nurse Type: ED Notes Filed: 01/29/2023 12:23 PM Note Text: Bed: ED-13 Expected date: Expected time: Means of arrival: Comments: EMS [facility] ED PROV NOTEon 01-29-2023 ED PROV NOTE HNO ID: [id number] Author: Erik Davis MD Service: Emergency Medicine [...] nursing note reviewed. Exam conducted with a welcome center agent present. Constitutional: General: He is not in [...] intact. Motor: Motor function is intact. Coordination: Qjhorr-Bvoy-Ycbzzs Test normal. Gait: Gait is intact. Psychiatric: [...] Final Result IMPRESSION: No acute radiographic abnormality. Fur Mixer Operator: PSCB Transcribe Date/Time: Jan 29 2023 1:19P [...] per minute AXIS: Normal axis INTERVALS: Normal TX interval QRS COMPLEX: Normal ST SE (more content not included)... Normal [facility] HIGH SENSITIVITY TROPONIN T (INITIAL)on 01-29-2023 HIGH SENSITIVITY SHEBA 7 ng/L Normal <12 [facility] Comment on above: Order Comment: Cristela ness Type: BLOOD SPECIMENOrdering Facility: [facility] Address: [address] [place] [address] Result Comment: When assessing risk for acute [...] day MACE. Performed By: #### 1 9123-9, [id number], 48598-4 ####[facility] [id number] [address] HIGH SENSITIVITY TROPONIN T (SECOND)on 01-29-2023 HIGH SENSITIVITY SHEBA <6 Normal <12 [facility] Comment on above: Order Comment: Cristela ness Type: BLOOD SPECIMEN Ordering Facility: [facility] Address: [address] [place] [address] Result Comment: When assessing risk for acute [...] 30 day MACE. Performed By: #### L [id number] #### [facility] CLIA [id number] [id number] [place] Magnesium SerPl-mCncon 01-29 Magnesium [Mass/Vol] 1.9 mg/dL Normal 1.7-2.3 [facility] Comment on above: Order Comment: Speci men Type: BLOOD SPECIMENOrdering Facility: [facility] Address: [address] [address] Performed By: #### 1 9123-9, [id number], 25904-3 ####[facility] [id number] [address] No Panel Informationon 01-29 IMPRESSION: Mild acromioclavicular degenerative changes. Fur Mixer Operator: YAIMA Transcribe Date/Time: Jan 29 2023 2:37P Dictated by : BROOK NELSON MD This examination was interpreted and the report reviewed and electronically signed by: BROOK NELSON MD on Jan 29 2023 2:38PM [facility] DIVISION OF RADIOLOGY Radiology Study observation (narrative) [facility] No Panel InformationOrdered By: [facility] Provider on 01-29-2023 [facility] XR CHEST 2V FRONTAL/LATon XR CHEST 2V [...] tissues: Unremarkable. IMPRESSION: No acute radiographic abnormality. Fur Mixer Operator: YAIMA Transcribe Date/Time: Jan 29 2023 1:19P Dictated by : DEVEN CHAPMAN MD This examination was interpreted and the report reviewed and electronically signed by: DEVEN CHAPMAN MD on Jan 29 2023 1:20PM EST [id number] [facility] XR SHLDR >/=3V AP/ALESSANDRO AP/OTH R LTon [...] >/=3V AP/ALESSANDRO AP/OTHR LT Laterality: RIGHT (accession [id number]), LEFT (accession [id number]) Number of different views (projections): 3 M: XB_1 COMPARISON: RESULT: Mild acromioclavicular degenerative changes bilaterally. Maintained glenohumeral joints bilaterally. Imaged lungs appear to be clear. No acute fracture or dislocation. There are no bony erosions. IMPRESSION: Mild acromioclavicular degenerative changes. Fur Mixer Operator: PSCB Transcribe Date/Time: Jan 29 2023 2:37P Dictated by : BROOK NELSON MD This examination was interpreted and the report reviewed and electronically signed by: BROOK NELSON MD on Jan 29 2023 2:38PM EST [id number] [facility] XR SHLDR >/=3V AP/ALESSANDRO AP/OTH R [...] >/=3V AP/ALESSANDRO AP/OTHR LT Laterality: RIGHT (accession [id number]), LEFT (accession [id number]) Number of different views (projections): 3 M: XB_1 COMPARISON: RESULT: Mild acromioclavicular degenerative changes bilaterally. Maintained glenohumeral joints bilaterally. Imaged lungs appear to be clear. No acute fracture or dislocation. There are no bony erosions. IMPRESSION: Mild acromioclavicular degenerative changes. Fur Mixer Operator: [facility] Transcribe Date/Time: Jan 29 2023 2:37P Dictated by : BROOK NELSON MD This examination was interpreted and the report reviewed and electronically signed by: BROOK NELSON MD on Jan 29 2023 2:38PM EST [id number] Normal [facility] XR Shoulder - left 3 Viewson [...] >/=3V AP/ALESSANDRO AP/OTHR LT Laterality: RIGHT (accession [id number]), LEFT (accession [id number]) Number of different views (projections): 3 M: XB_1 COMPARISON: RESULT: Mild acromioclavicular degenerative changes bilaterally. Maintained glenohumeral joints bilaterally. Imaged lungs appear to be clear. No acute fracture or dislocation. There are no bony erosions. DIVISION OF RADIOLOGY Provider, [facility] - 01/29/2023 * * *Final Report* * [...] >/=3V AP/ALESSANDRO AP/OTHR LT Laterality: RIGHT (accession [id number]), LEFT (accession [id number]) Number of different views (projections): 3 M: XB_1 COMPARISON: RESULT: Mild acromioclavicular degenerative changes bilaterally. Maintained glenohumeral joints bilaterally. Imaged lungs appear to be clear. No acute fracture or dislocation. There are no bony erosions. IMPRESSION IMPRESSION: Mild acromioclavicular degenerative changes. Fur Mixer Operator: [facility] Transcribe Date/Time: Jan 29 2023 2:37P Dictated by : BROOK NELSON MD This examination was interpreted and the report reviewed and electronically signed by: BROOK NELSON MD on Jan 29 2023 2:38PM [facility] XR Shoulder - right 3 Viewso n 01-29-2023 * * *Final Report* * * DATE OF EXAM: Jan 29 2023 12:17PM SHX [id number] - XR SHLDR >/=3V AP/ALESSANDRO AP/OTHR RT / PROCEDURE REASON: Pain * * * * Physician Interpretation * * * * EXAMINATION: XR SHLDR >/=3V AP/ALSESANDRO AP/OTHR RT, XR SHLDR >/=3V AP/ALESSANDRO AP/OTHR LT HISTORY: bilateral shoulder pain no injury Pain . TECHNIQUE: XR SHLDR >/=3V AP/ALESSANDRO AP/OTHR RT, XR SHLDR >/=3V AP/ALESSANDRO AP/OTHR LT Laterality: RIGHT (accession [id number]), LEFT (accession [id number]) Number of different views (projections): 3 M: XB_1 COMPARISON: RESULT: Mild acromioclavicular degenerative changes bilaterally. Maintained glenohumeral joints bilaterally. Imaged lungs appear to be clear. No acute fracture or dislocation. There are no bony erosions. DIVISION OF RADIOLOGY Provider, [facility] - 01/29/2023 * * *Final Report* * [...] >/=3V AP/ALESSANDRO AP/OTHR LT Laterality: RIGHT (accession [id number]), LEFT (accession [id number]) Number of different views (projections): 3 M: XB_1 COMPARISON: RESULT: Mild acromioclavicular degenerative changes bilaterally. Maintained glenohumeral joints bilaterally. Imaged lungs appear to be clear. No acute fracture or dislocation. There are no bony erosions. IMPRESSION IMPRESSION: Mild acromioclavicular degenerative changes. Fur Mixer Operator: PSCB Transcribe Date/Time: Jan 29 2023 2:37P Dictated by : BROOK NELSON MD This examination was interpreted and the report reviewed and electronically signed by: BROOK NELSON MD on Jan 29 2023 2:38PM EST [facility] UA DIP, URINE (POC)on 2022 BILIRUBIN UA (POCT) Negative Negative [facility] CLARITY UA (POCT) Clear [facility] COLOR UA (POCT) Yellow [facility] GLUCOSE UA (POCT) Negative Negative mg/dL [facility] HEMOGLOBIN/BLOOD UA (POCT) Negative Negative [facility] KETONE UA (POCT) Negative Negative mg/dL [facility] LEUKOCYTES UA (POCT) Negative Negative [facility] NITRITE UA (POCT) Negative [facility] PH UA (POCT) 5.5 4.5 - 8.0 [facility] Protein Ql (U) Negative Negative mg/dL [facility] SPECIFIC GRAVITY UA (POCT) >=1.030 1.005 - 1.030 [facility] UROBILINOGEN UA (POCT) 0.2 E.U./dL Skyla l E.U./dL [facility] Provider Note - ED v3on 11-27 Provider [...] by speech recognition technology. Minor errors in non destructive tester may be present. HISTORY OF PRESENTING ILLNESS [...] Review Statu (more content not included)... Normal [facility] Triage - EDon 2022 Triage - ED Chart Review: ARRIVAL INFORMATION Mode of Arrival: ambulance Agency Name: [facility] CHIEF COMPLAINT GABRIELA VIDAL is a Male [...] BMI (kg/m2): 25.839 Calculated BSA (m2) 2.05 [place] Coma Scale: Best Eye Response: (E4) spontaneous Best Motor Response: (M6) obeys commands Best Verbal Response: (V5) oriented [place] Score: 15 Cough lasting greater than 3 [...] 11-Dec-2022 21:00 by Dina Wood (ANDRES PRN) [facility] ED NOTEon 01-03-2022 ED NOTE HNO ID: [id number] Author: Darcie Gary RN Service: Nursing Author [...] Pt ambulated off ED in no distress. [facility] ED NOTE HNO ID: [id number] Author: Nuvia George RN Service: ? Author Type: Registered Nurse Type: ED Notes Filed: 01/03/2022 11:51 AM Note Text: Pt presents to the ED with CC of a known dental infection for the past 2 years that has turned into an abscess, pt went to [place] yesterday where they attempted to drain the abscess and started him on oral antibiotics, pt now reports swelling is worse and to the point of his eye swelling shut Normal [facility] ED PROV NOTEon 01-03-2022 ED PROV NOTE HNO ID: [id number] Author: Aysha Poole MD Service: ? Author [...] swelling 2 days ago. He went to [place] emergency department was placed on amoxicillin. He [...] alert and (more content not included)... Normal [facility] XR SHOULDER 2V AP/TRUE AP RT on [...] otherwise maintained. No acute fracture or dislocation. Fur Mixer Operator: YAIMA Transcribe Date/Time: Sep 09 2020 9:58A Dictated by : XAVI OLIVER MD This examination was interpreted and the report reviewed and electronically signed by: XAVI OLIVER MD on Sep 09 2020 10:09AM EST Normal [facility] CT CHEST WO IVCONon 08-02-[address] CHEST WO IVCON Final Report DATE OF EXAM: Aug 02 2020 5:04PM [facility] 0541 - CT CHEST WO IVCON / [...] abnormality identified in the imaged upper abdomen. Gypsum Roofer (topogram) images: No additional findings. IMPRESSION: Interval resolution of right lower lobe consolidation/pneumonia . No acute findings in the chest. Fur Mixer Operator: YAIMA Transcribe Date/Time: Aug 02 2020 6:06P Dictated by : LACI MENDOZA MD This examination was interpreted and the report reviewed and electronically signed by: LACI MENDOZA MD on Aug 02 2020 6:17PM EST Normal [facility] XR CHEST 2V FRONTAL/LATon XR CHEST [...] to ensure resolution and exclude a neoplasm. Fur Mixer Operator: YAIMA Transcribe Date/Time: May 17 2020 5:34P Dictated by : JUAN AEYRS MD This examination was interpreted and the report reviewed and electronically signed by: JUAN AYERS MD on May 17 2020 5:35PM EST Normal [facility] T. Vaginalis Amplificationon 02-10-2020 T. Vaginalis Amplification SEE BELOW Normal [facility] Comment on above: Result Comment: Tric h vag Amp Source Urine Corrected on 02/08 AT 1722: Previously reported as URINE T vag Amplification SEE BELOW Negative for Trichomonas vaginalis by amplification This test was developed and its performance characteristics determined by [facility]'s Gabriela Orellana [facility]ology [facility] [place] ( [facility]). It has not been cleared or approved by the FDA. [facility] is regulated under CLIA as qualified to perform high complexity testing. This test is used for clinical purposes. It should not be regarded as investigational or for research. Performing Laboratory: [facility] [address] [place] [address] Performed By: #### T RVAX #### [address] [address] GC/Chlam Urine Ampon 020 CT Amplification, Ur CT neg Normal [facility] Comment on above: Result Comment: Nega tive for Chlamydia trachomatis by amplification. Performed By: #### G CTUP #### [address] [address] GC Amplification, Ur GC neg Normal [facility] Comment on above: Result Comment: Nega tive for Neisseria gonorrhoeae by amplification. Performed By: #### G CTUP #### [address] [address] GC/Chlam Urine Ampon 020 GC/Chlam Urine Amp Source Urine Normal [facility] Comment on above: Performed By: #### G CTUP #### [address] [address] XR LUMBAR 3V AP/LAT/L5-S1on 02-02-2020 XR LUMBAR [...] are seen. IMPRESSION: No acute traumatic abnormality Fur Mixer Operator: [facility] Transcribe Date/Time: Feb 02 2020 1:49P Dictated by : LINDA RAMÍREZ MD This examination was interpreted and the report reviewed and electronically signed by: LINDA RAMÍREZ MD on Feb 02 2020 1:54PM EST Normal [facility] Chlamydia and GC PCR Panelon 02-09-2018 [...] as suspected child abuse or molestation. [facility] Comment on above: Order Comment: Speci men Source Comment:Urine voided Performed By: #### C TNGP ####[facility] [place] [address] CR Abdomen Series w/ Chest 1 Viewon 02-08-2018 CR Abdomen Series w/ Chest 1 View Patient Name: GABRIELA VIDAL Jr Diagnostic Radiology Exam Date/Time 02/08/2018 11:55:40 EDT Exam CR Abdomen Series w/ Chest 1 View Ordering Physician DO GONCALVES KIMBERLY D. Accession Number [id number] CPT4 Codes 65426 () Reason For Exam abdominal pain and [...] Transcribed Date and Time: 02/08/2018 1:03 Normal [facility] Comp Metabolic Panelon 02-08 Calcium 9.2 mg/dL Normal 8.4-10.4 [facility] Comment on above: Performed By: #### H ROBERT GUERRERO3 ####[facility] [place] [address] Alanine aminotransferase (ALT) 19 U/L Normal 13-69 [facility] Comment on above: Performed By: #### H ROBERT GUERRERO3 ####[facility] [place] [address] Alkaline phosphatase (ALP) 45 U/L Normal 38-126 [facility] Comment on above: Performed By: #### H YOLANDA CMP3 ####[id number] [facility] [place] [address] Anion gap 9 Normal [facility] Comment on above: Performed By: #### H YOLANDA CMP3 ####[id number] [facility] [place] [address] Aspartate aminotransferase (AST) 22 U/L Normal 15-46 [facility] Comment on above: Performed By: #### H YOLANDA CMP3 ####[address] [place] [address] Bilirubin (total) 0.5 mg/dL Normal 0.2-1.3 [facility] Comment on above: Performed By: #### H YOLANDA CMP3 ####[address] [place] [address] CO2 28 mmol/L Normal 22-30 [facility] Comment on above: Performed By: #### H YOLANDA CMP3 ####[address] [place] [address] Creatinine 1.19 mg/dL Normal 0.52-1.25 [facility] Comment on above: Performed By: #### H YOLANDA CMP3 ####[address] [place] [address] eGFR (black) mL/min/{1.73_m2} Normal >60 [facility] Comment on above: Performed By: #### H YOLANDA CMP3 ####[address] [place] [address] eGFR (non-black) mL/min/{1.73_m2} Normal >60 [facility] Comment on above: Result Comment: Sour ce- MDRD equation with creatinine calibration to IDMS(NKDEP) eGFR not recommended for drug dose adjustment Performed By: #### H YOLANDA CMP3 ####[address] [place] [address] Glucose mass conc 98 mg/dL Normal 70-100 [facility] Comment on above: Performed By: #### Larry GUERRERO CMP3 ####[address] [place] [address] Protein 6.9 g/dL Normal 6.3-8.2 [facility] Comment on above: Performed By: #### H YOLANDA CMP3 ####[id number] [place] [address] Urea nitrogen 10 mg/dL Normal 7-20 [facility] Comment on above: Performed By: #### H YOLANDA CMP3 ####[address] [place] [address] Potassium molar conc 4.2 mmol/L Normal 3.5-5.1 [facility] Comment on above: Performed By: #### H YOLANDA CMP3 ####[address] [place] [address] Albumin 4.2 g/dL Normal 3.5-5.0 [facility] Comment on above: Performed By: #### H YOLANDA CMP3 ####[address] [place] [address] Chloride 106 mmol/L Normal 98-107 [facility] Comment on above: Performed By: #### H YOLANDA CMP3 ####[address] [place] [address] Sodium 144 mmol/L Normal 137-145 [facility] Comment on above: Performed By: #### H YOLANDA CMP3 ####[address] [place] [address] Hemogram w/ Autodiffon 02-08 Abs Baso Cnt 0.0 10*3/uL Normal 0.0-0.2 [facility] Comment on above: Performed By: #### H YOLANDA CMP3 ####[address] [place] [address] Abs Neutrophile Cnt 4.4 10*3/uL Normal 1.8-7.0 [facility] Comment on above: Performed By: #### H YOLANDA CMP3 ####[address] [place] [address] Basophils/100 WBC Auto (Bld) 0.5 % Normal 0.0-2.0 [facility] Comment on above: Performed By: #### H YOLANDA CMP3 ####[address] [place] [address] Eosinophils 0.2 10*3/uL Normal 0.0-0.5 [facility] Comment on above: Performed By: #### H YOLANDA CMP3 ####[id number] [place] [address] Eosinophils/100 leukocytes 2.5 % Normal 1.0-6.0 [facility] Comment on above: Performed By: #### H YOLANDA CMP3 ####[address] [address] Erythrocyte distribution width Auto Ratio (RBC) 13.0 % Normal 11.5-14.5 [facility] Comment on above: Performed By: #### H YOLANDA CMP3 ####[address] [address] Erythrocytes (RBC) 5.31 10*6/uL Normal 4.40-5.90 [facility] Comment on above: Performed By: #### H YOLANDA CMP3 ####[address] [address] Granulocytes/100 WBC (Bld) 54.6 % Normal 40.0-80.0 [facility] Comment on above: Performed By: #### H YOLANDA CMP3 ####[address] [address] Hematocrit (HCT) 48.8 % Normal 40.0-52.0 [facility] Comment on above: Performed By: #### H YOLANDA CMP3 ####[address] [address] Hemoglobin mass conc (Bld) 16.7 g/dL Normal 13.0-18.0 [facility] Comment on above: Performed By: #### H YOLANDA CMP3 ####[address] [address] Lymphocytes 2.6 10*3/uL Normal 1.0-4.3 [facility] Comment on above: Performed By: #### H EMDF CMP3 ####[address] [address] Lymphocytes/100 leukocytes 32.5 % Normal 20.0-40.0 [facility] Comment on above: Performed By: #### H YOLANDA CMP3 ####[facility] [place] [address] MCH 31.4 pg Normal 26.0-34.0 [facility] Comment on above: Performed By: #### H YOLANDA CMP3 ####[id number] [facility] [place] [address] MCHC mass conc (RBC) 34.2 % Normal 32.0-36.0 [facility] Comment on above: Performed By: #### H YOLANDA CMP3 ####[id number] [place] [address] MCV 91.8 fL Normal 80.0-98.0 [facility] Comment on above: Performed By: #### H YOLANDA CMP3 ####[address] [id number] [place] [address] Monocytes 0.8 10*3/uL Normal 0.0-0.8 [facility] Comment on above: Performed By: #### H YOLANDA CMP3 ####[address] [place] [address] Monocytes/100 leukocytes 9.9 % Normal 2.0-10.0 [facility] Comment on above: Performed By: #### H YOLANDA CMP3 ####[id number] [place] [address] Platelet mean volume (PMV) 10.2 fL Normal 7.4-10.4 [facility] Comment on above: Performed By: #### H YOLANDA CMP3 ####[address] [id number] [place] [address] Platelets 195 10*3/uL Normal 140-440 [facility] Comment on above: Performed By: #### H YOLANDA CMP3 ####[id number] [place] [address] WBC (Leukocytes) 8.0 10*3/uL Normal 3.6-10.7 [facility] Comment on above: Performed By: #### H YOLANDA CMP3 ####[id number] [place] [address] Urinalysis,Macroon 8 Appearance Clear Normal Clear [facility] Comment on above: Performed By: #### U AMAC, UAMIC ####[facility] [place] [address] Bilirubin,Ur 1 + Normal Negative [facility] Comment on above: Performed By: #### U AMAC, UAMIC ####[facility] [place] [address] Color Yellow Normal Lt. Yellow [facility] Comment on above: Performed By: #### U AMAC, UAMIC ####[facility] [place] [address] Ketone,Urine Negative Normal Negative [facility] Comment on above: Performed By: #### U AMAC, UAMIC ####[id number] [place] [address] Leukocytes Negative Normal Negative [facility] Comment on above: Performed By: #### U AMAC, UAMIC ####[id number] [place] [address] Nitrites Negative Normal Negative [facility] Comment on above: Performed By: #### U AMAC, UAMIC ####[facility] [place] [address] Occult Blood,Ur Negative Normal Negative [facility] Comment on above: Performed By: #### U AMAC, UAMIC ####[facility] [place] [address] Specific [place],Urine 1.020 Normal 1.005-1.030 [facility] Comment on above: Performed By: #### U AMAC, UAMIC ####[facility] [place] [address] Total Protein,Urine Negative Normal Negative [facility] Comment on above: Performed By: #### U AMAC, UAMIC ####[facility] [place] [address] Urine, glucose presence NEG (Normal) Normal Negative [facility] Comment on above: Performed By: #### U AMAC, UAMIC ####[id number] [place] [address] Urine, pH 6.5 Normal 5.0-8.0 [facility] Comment on above: Performed By: #### U AMAC, UAMIC ####[address] [place] [address] Urobilinogen Normal (0.2) Normal 0-1 [facility] Comment on above: Performed By: #### U AMAC, UAMIC ####[facility] [place] [address] Urinalysis,Microscopicon Amorphous Urates Moderate (6-50) Normal Negative [facility] Comment on above: Performed By: #### U AMAC, UAMIC ####[id number] [place] [address] Bacteria Few (1-5) Normal Negative [facility] Comment on above: Performed By: #### U AMAC, UAMIC ####[id number] [place] [address] Ca Oxylate Crystals Few (1-5) Normal Negative [facility] Comment on above: Performed By: #### U AMAC, UAMIC ####[address] [id number] [place] [address] Epithelial Cells Negative Normal 3-5 [facility] Comment on above: Performed By: #### U AMAC, UAMIC ####[address] [id number] [facility] [place] [address] Urine, erythrocytes in sediment by area Negative Normal 0-2 [facility] Comment on above: Performed By: #### U AMAC, UAMIC ####[address] [id number] [facility] [place] [address] Urine, leukocytes in sedmiment 0 - 2 Normal 0-5 [facility] Comment on above: Performed By: #### U AMAC, UAMIC ####[address] [place] [address] Volume,Urine 12 ml Normal [facility] Comment on above: Performed By: #### U AMAC, UAMIC ####[address] [place] [address] Vital Signs Date Time Vital Sign Value Performing Clinician Facility 01-07-2025 09:57-0400 Body temperature 97.3 [degF] Shania Vieira AUTOMOBILE RENTAL REPRESENTATIVE-C Work Phone: [facility] 01-07-2025 09:57-0400 Diastolic blood pressure 99 mm[Hg] Shania Queden AUTOMOBILE RENTAL REPRESENTATIVE-C Work Phone: [facility] 01-07-2025 09:57-0400 Heart rate 90 /min Shania Queden AUTOMOBILE RENTAL REPRESENTATIVE-C Work Phone: [facility] 01-07-2025 09:57-0400 Respiratory rate 16 /min Shania Queden AUTOMOBILE RENTAL REPRESENTATIVE-C Work Phone: [facility] 01-07-2025 09:57-0400 SaO2% (BldA) [Mass fraction] 99 % Shania Queden AUTOMOBILE RENTAL REPRESENTATIVE-C Work Phone: [facility] 01-07-2025 09:57-0400 Systolic blood pressure 101 mm[Hg] Shania Queden AUTOMOBILE RENTAL REPRESENTATIVE-C Work Phone: [facility] 01-07-2025 08:42-0400 Body height 175.26 cm Shania Queden AUTOMOBILE RENTAL REPRESENTATIVE-C Work Phone: [facility] 01-07-2025 08:42-0400 Body mass index (BMI) [Ratio] 27.1 kg/m2 Shania Queden AUTOMOBILE RENTAL REPRESENTATIVE-C Work Phone: [facility] 01-07-2025 08:42-0400 Body weight 83.41 kg Shania Queden AUTOMOBILE RENTAL REPRESENTATIVE-C Work Phone: [facility] 01-15-2024 14:37-0400 Body height 177.8 cm Shania Queden MICROBIOLOGY COORDINATOR.BLUEPRINTER Work Phone: [facility] 01-15-2024 14:37-0400 Body mass index (BMI) [Ratio] 24.54 kg/m2 Shania Queden MICROBIOLOGY COORDINATOR.BLUEPRINTER Work Phone: [facility] 01-15-2024 14:37-0400 Body temperature 97.9 [degF] Shania Queden MICROBIOLOGY COORDINATOR.BLUEPRINTER Work Phone: [facility] 01-15-2024 14:37-0400 Body weight 77.56 kg Shania Queden MICROBIOLOGY COORDINATOR.BLUEPRINTER Work Phone: [facility] 01-15-2024 14:37-0400 Diastolic blood pressure 62 mm[Hg] Shania Queden MICROBIOLOGY COORDINATOR.BLUEPRINTER Work Phone: [facility] 01-15-2024 14:37-0400 Heart rate 98 /min Shania Queden MICROBIOLOGY COORDINATOR.BLUEPRINTER Work Phone: [facility] 01-15-2024 14:37-0400 Respiratory rate 18 /min Shania Queden MICROBIOLOGY COORDINATOR.BLUEPRINTER Work Phone: [facility] 01-15-2024 14:37-0400 SaO2% (BldA) [Mass fraction] 99 % Shania Queden MICROBIOLOGY COORDINATOR.BLUEPRINTER Work Phone: [facility] 01-15-2024 14:37-0400 Systolic blood pressure 122 mm[Hg] Shania Queden MICROBIOLOGY COORDINATOR.BLUEPRINTER Work Phone: [facility] 09-29-2023 06:49-0500 Body temperature 97.8 [degF] [facility] 09-29-2023 06:49-0500 Diastolic blood pressure 72 mm[Hg] [facility] 09-29-2023 06:49-0500 Heart rate 71 /min [facility] 09-29-2023 06:49-0500 Respiratory rate 16 /min [facility] 09-29-2023 06:49-0500 SaO2% (BldA) [Mass fraction] 98 % [facility] 09-29-2023 06:49-0500 Systolic blood pressure 122 mm[Hg] [facility] 09-28-2023 17:12-0500 Body height 177.8 cm [facility] 09-28-2023 17:12-0500 Body mass index (BMI) [Ratio] 26.5 kg/m2 [facility] 09-28-2023 17:12-0500 Body weight 83.91 kg [facility] 04-09-2023 10:29-0400 Body height 177.8 cm Gilda Zavala MICROBIOLOGY COORDINATOR.BLUEPRINTER Work Phone: [facility] 04-09-2023 10:29-0400 Body temperature 97.81 [degF] Gilda Trill MICROBIOLOGY COORDINATOR.BLUEPRINTER Work Phone: [facility] 04-09-2023 10:29-0400 Body weight 82.1 kg Gilda Trill MICROBIOLOGY COORDINATOR.BLUEPRINTER Work Phone: [facility] 04-09-2023 10:29-0400 Diastolic blood pressure 76 mm[Hg] Gilda Trill MICROBIOLOGY COORDINATOR.BLUEPRINTER Work Phone: [facility] 04-09-2023 10:29-0400 Heart rate 92 /min Gilda Trill MICROBIOLOGY COORDINATOR.BLUEPRINTER Work Phone: [facility] 04-09-2023 10:29-0400 SaO2% (BldA) [Mass fraction] 93 % Gilda Trill MICROBIOLOGY COORDINATOR.BLUEPRINTER Work Phone: [facility] 04-09-2023 10:29-0400 Systolic blood pressure 120 mm[Hg] Gilda Trill MICROBIOLOGY COORDINATOR.BLUEPRINTER Work Phone: [facility] 12-29-2022 16:55-0400 Body height 177.8 cm Shania Queden MICROBIOLOGY COORDINATOR.BLUEPRINTER Work Phone: [facility] 12-29-2022 16:55-0400 Body temperature 97.9 [degF] Shania Queden MICROBIOLOGY COORDINATOR.BLUEPRINTER Work Phone: [facility] 12-29-2022 16:55-0400 Body weight 79.83 kg Shania Queden MICROBIOLOGY COORDINATOR.BLUEPRINTER Work Phone: [facility] 12-29-2022 16:55-0400 Diastolic blood pressure 74 mm[Hg] Shania Queden MICROBIOLOGY COORDINATOR.BLUEPRINTER Work Phone: [facility] 12-29-2022 16:55-0400 Heart rate 91 /min Shania Queden MICROBIOLOGY COORDINATOR.BLUEPRINTER Work Phone: [facility] 12-29-2022 16:55-0400 SaO2% (BldA) [Mass fraction] 97 % Shania Vieira MICROBIOLOGY COORDINATOR.BLUEPRINTER Work Phone: [facility] 12-29-2022 16:55-0400 Systolic blood pressure 120 mm[Hg] Shania Vieira MICROBIOLOGY COORDINATOR.BLUEPRINTER Work Phone: [facility] 12-12-2022 00:10-0400 Diastolic blood pressure 77 mm[Hg] No Pcp Required [facility] Other Phone (unformatted): [employer] 12-12-2022 00:10-0400 Heart rate 96 /min No Pcp Required [facility] Other Phone (unformatted): [phone] 12-12-2022 00:10-0400 Respiratory rate 18 /min No Pcp Required [facility] Other Phone (unformatted): [phone] 12-12-2022 00:10-0400 SaO2% (BldA) [Mass fraction] 100 % No Pcp Required [facility] Other Phone (unformatted): [phone] 12-12-2022 00:10-0400 Systolic blood pressure 113 mm[Hg] No Pcp Required [facility] Other Phone (unformatted): [phone] 2022 22:57-0400 Body height 180.3 cm No Pcp Required [facility] Other Phone (unformatted): [phone] 2022 22:57-0400 Body temperature 96.8 [degF] No Pcp Required [facility] Other Phone (unformatted): [phone] 2022 22:57-0400 Body weight 84 kg No Pcp Required [facility] Other Phone (unformatted): [phone] 05-18-2019 15:46-0400 BMI (Body Mass Index) 26.54 kg/m2 [facility] [place] 05-18-2019 15:46-0400 Body Temperature 98.6 [degF] [facility] [facility] [place] 05-18-2019 15:46-0400 Body weight 83.92 kg [place], [place] 05-18-2019 15:46-0400 BP Diastolic 79 mm[Hg] [place] 05-18-2019 15:46-0400 BP Systolic 118 mm[Hg] [place] 05-18-2019 15:46-0400 Pulse (Heart Rate) 94 /min [place], [place] 05-18-2019 15:46-0400 Pulse Oximetry 99 % [place] 05-18-2019 15:46-0400 Respiratory Rate 20 /min [facility], [place] Encounters Encounter Date Encounter Type Care Provider Facility Start: 01-12-2025 End: 01-12-2025 ambulatory Shania Vieira MICROBIOLOGY COORDINATOR.BLUEPRINTER Work Phone: [facility] Start: 01-12-2025 End: 01-12-2025 Follow-up encounter Shanai Vieira MICROBIOLOGY COORDINATOR.BLUEPRINTER Work Phone: [facility] Comment on above: ED Follow-up ([facility] ED 01/07/2025) Start: 01-07-2025 End: 01-07-2025 Emergency department patient visit Shania Vieira AUTOMOBILE RENTAL REPRESENTATIVE-C Work Phone: -Emergency Department Work Phone: Start: 04-21-2024 End: 04-23-2024 Patient Outreach Estephania Lemos LANDING SIGNAL OFFICER [facility] Comment on above: Transition Of Care ( Pt was admitted to [facility] on 04/18/2024 for ISABELLA, COVID-19. Pt was d/c on 04/19/2024) Start: 04-18-2024 ambulatory Shania Vieira AUTOMOBILE RENTAL REPRESENTATIVE Facil ity:[facility] Start: 04-18-2024 End: 04-19-2024 Evaluation and management of inpatient Shania Vieira AUTOMOBILE RENTAL REPRESENTATIVE Facility:[facility] Start: 04-17-2024 End: 04-17-2024 Emergency department patient visit Shania Vieira AUTOMOBILE RENTAL REPRESENTATIVE Facility:[facility] Start: 01-28-2024 Telephone encounter Shania Vieira MICROBIOLOGY COORDINATOR.BLUEPRINTER Work Phone: [facility] Comment on above: Consult Start: 01-15-2024 End: 01-15-2024 Patient encounter procedure Shania Vieira MICROBIOLOGY COORDINATOR.BLUEPRINTER Work Phone: [facility] Comment on above: Schizoaffective diso rder, unspecified type (HCC) (Primary Dx); Adult ADHD; Auditory hallucinations; Acute psychosis (HCC); Marijuana use; Financial difficulties; Acute pain of left shoulder; Living in temporary quarters Start: 12-21-2023 Telephone encounter Shania Vieira APRN.BLUEPRINTER Work Phone: [facility] Comment on above: Appointment Start: 12-17-2023 ambulatory Estephania Lemos LPN [facility] Start: 10-02-2023 ambulatory Humera Gillis [facility] Comment on above: ed outreach (Ed outr each/09/28/2023/[facility] ) Start: 09-28-2023 End: 09-29-2023 Emergency department patient visit [facility]-Emergency Department Work Phone: Start: 07-03-2023 ambulatory Shania sherman APRN.BLUEPRINTER Work Phone: [facility] Comment on above: ED Outreach ([place] ED 07/01/23) Start: 05-17-2023 ambulatory Shanae Bustamante [facility] Start: 04-11-2023 ambulatory Humera Gillis [facility] Comment on above: ED outreach (ED outr each /[place] /04/07/2023 ) Start: 04-09-2023 End: 04-09-2023 Patient encounter procedure Gilda Zavala APRN.BLUEPRINTER Work Phone: [facility] Comment on above: Cellulitis of right lower leg (Primary Dx); Itching Start: 01-29-2023 End: 01-29-2023 Emergency department patient visit SHANIA VIEIRA Facility:[facility] Start: 01-29-2023 End: 01-29-2023 ambulatory SHANIA VIEIRA Facility:[facility] Start: 01-29-2023 End: 01-29-2023 Subsequent hospital visit by physician [facility] Comment on above: Pain [R52] Start: 01-18-2023 Orders Only Humera Hernandez bobby MICROBIOLOGY COORDINATOR.BLUEPRINTER Work Phone: [facility] Comment on above: Pain (Primary Dx) Start: 01-01-2023 Telephone encounter Shania Vieira MICROBIOLOGY COORDINATOR.BLUEPRINTER Work Phone: [facility] Comment on above: Results Start: 12-29-2022 End: 12-29-2022 Patient encounter procedure Shania Vieira MICROBIOLOGY COORDINATOR.BLUEPRINTER Work Phone: [facility] Comment on above: Dysuria (Primary Dx) ; Exposure to STD Start: 2022 End: 12-12-2022 Emergency department patient visit Damion Perdue [facility] Other Phone (unformatted): [phone] Start: 08-24-2022 ambulatory Shania Byrned en MICROBIOLOGY COORDINATOR.BLUEPRINTER Work Phone: [facility] Start: 08-24-2022 Follow-up encounter Shania Vieira MICROBIOLOGY COORDINATOR.BLUEPRINTER Work Phone: [facility] Comment on above: ED Follow Up ([place] [facility] D discharge 08/21/2022 ED outreach ) Start: 01-06-2022 ambulatory Shania Byrned en MICROBIOLOGY COORDINATOR.BLUEPRINTER Work Phone: [facility] Start: 05-18-2019 End: 05-18-2019 Emergency department patient visit [facility] ED Comment on above: Encounter for wound re-check (Primary Dx) Start: 02-08-2018 Emergency department patient visit Torrie Goncalves [facility] Procedures Date Procedure Procedure Detail Performing Clinician Start: 09-28-2023 Coronavirus COVID-19 PCR Start: 01-29-2023 Radex shoulder compl ete minimum 2 views Humera Martinez Meredith MICROBIOLOGY COORDINATOR.BLUEPRINTER Work Phone: Start: 12-29-2022 Urnls dip stick/tabl et rgnt auto w/o microscopy Shania Vieira MICROBIOLOGY COORDINATOR.BLUEPRINTER Work Phone: Start: 08-24-2020 Adult depression scr eening assessment Shania Vieira MICROBIOLOGY COORDINATOR.BLUEPRINTER Work Phone: Plan of Treatment Date Care Activity Detail Author Start: 07-01-2033 Urine microalbumin profile DTaP,Tdap,Td Vaccine (8 - Td or Tdap) [facility] Start: 03-30-2025 Influenza vaccination Influenz a Vaccine (Season Ended) [facility] Start: 03-30-2024 Covid-19 Vaccine ( season) Covid-19 Vaccine ( season) [facility] Start: 03-30-2024 Covid-19 Vaccine ( season) Covid-19 Vaccine () [facility] Start: 03-30-2024 Influenza vaccination C [facility] Start: 02-20-2024 End: 02-20-2024 Patient encounter procedure 02/20/2024 2:00 PM EDT Office Visit Orthopaedics [address] [address] Gisella De Santiago DO [address] [place] [address] shoulder pain, bycicle incident 01/02/24 [facility] Comment on above: shoulder pain, bycic le incident 01/02/24 [facility] Start: 01-15-2024 End: 01-15-2024 Patient encounter procedure 01/15/2024 2:20 PM EDT Office Visit [facility] [address] [place] [address] Shania Vieira APRN.BLUEPRINTER [address] [place] [address] est casre [facility] Comment on above: est casre Start: 12-30-2023 COVID-19 VACCINE (#1) COVID-19 VACCI NE (#1) [facility] Comment on above: Postponed from 06/13 (Declined at this time) Start: 12-12-2023 Lipid panel Lipid Screening [facility] Start: 09-29-2023 [facility] Start: 09-28-2023 Suicide precautions [facility] Start: 07-30-2023 Behavioral Health Screening Behavioral Health Screening [facility] Start: 07-30-2023 Depression Assessment Depression Ass [facility] Start: 07-29-2023 Depression Assessment Depression Ass [facility] Comment on above: Postponed from 07/30 (Declined at this time) Start: 03-30-2023 Covid-19 Vaccine () Covid-19 Vaccine () [facility] Start: 03-30-2023 Influenza vaccination [facility] Start: 12-29-2022 End: 02-28-2023 SYPHILIS TOTAL W/REFLEX SYPHILIS TOTAL W/REFLEX Lab Routine Exposure to STD Expected: 12/29/2022, Expires: 02/28/2023 [facility] Work Phone: Comment on above: Expected: 12/29/2022 , Expires: 02/28/2023 Start: 07-30-2022 DEPRESSION ASSESSMENT DEPRESSION ASS [facility] Start: 03-30-2022 Influenza vaccination [facility] Start: 08-24-2021 Adult depression screening assessment DEPRESSION SCREENING [facility] Start: 11-11-2020 Urine microalbumin profile [facility] Start: 03-30-2019 Influenza vaccination Flu vaccine (# 1) [place] Start: 12-12-2007 Pneumococcal vaccination Pneumococcal Vaccine (1 of 2 - PCV) [facility] Start: 12-12-2007 Urine microalbumin profile DTAP,TDAP,TD (1 - Tdap) [facility] Start: 2006 Anxiety Screening Anxiety Screening [facility] Start: 2006 Depression Screening Depression Scre ening [facility] Start: 2006 HEPATITIS C SCREENING HEPATITIS C [facility] Start: 2006 Hepatitis C screening Hepatitis C [facility] Start: 2006 HIV SCREENING HIV SCREENING [facility] Start: 2006 HIV screening HIV Screening [facility] Start: 1994 PNEUMOCOCCAL (1 - PCV) PNEUMOCOCCAL (1 - PCV) [facility] Start: 1994 Pneumococcal vaccination [facility] Start: 1993 COVID-19 VACCINE (#1) COVID-19 VACCI NE (#1) [facility] Start: 06-13-1989 COVID-19 VACCINE (#1) COVID-19 VACCI NE (#1) [facility] Start: 1988 HEPATITIS B (1 of 3 - 3-dose series) HEPATITIS B (1 of 3 - 3-dose series) [facility] Chlamydia trachomatis+Neisseria gonorrhoeae DNA [Presence] in Urine by CARLOS with probe detection GC/CHLAMYDIA AMPLIF, URINE Microbiology Routine Exposure to STD 12/29/2022 5:06 PM EDT [facility] Work Phone: Patient Education ED Cellulitis [facility] Work Phone: Patient referral [facility] Work Phone: T VAGINALIS AMPLIFICATION T VAGINALIS AMPLIFICATION Lab Routine Exposure to STD 12/29/2022 5:02 PM EDT [facility] Work Phone: UA DIP, URINE (POC) UA DIP, URIN E (POC) Lab Routine Dysuria Ordered: 12/29/2022 [facility] Work Phone: Comment on above: Ordered: 12/29/2022 End: 02-17-2024 XR SHOULDER GENERAL 3V OR MORE AP/TRUE AP/OTHER LEFT XR SHOULDER GENERAL 3V OR MORE AP/TRUE AP/OTHER LEFT Radiology Routine Pain 1 Occurrences starting 01/18/2023 until 02/17/2024 [facility] Work Phone: Comment on above: 1 Occurrences starti ng 01/18/2023 until 02/17/2024 End: 02-17-2024 XR SHOULDER GENERAL 3V OR MORE AP/TRUE AP/OTHER RIGHT XR SHOULDER GENERAL 3V OR MORE AP/TRUE AP/OTHER RIGHT Radiology Routine Pain 1 Occurrences starting 01/18/2023 until 02/17/2024 [facility] Work Phone: Comment on above: 1 Occurrences starti ng 01/18/2023 until 02/17/2024 [facility] Immunizations Immunization Date Immunization Notes Care Provider Igor escobedo 07-01-2023 tetanus toxoid, redu mag diphtheria toxoid, and acellular pertussis vaccine, adsorbed Shania Queden MICROBIOLOGY COORDINATOR.BLUEPRINTER Work Phone: [facility] 11-11-2010 tetanus toxoid, redu mag diphtheria toxoid, and acellular pertussis vaccine, adsorbed Shania Queden MICROBIOLOGY COORDINATOR.BLUEPRINTER Work Phone: [facility] 06-03-2009 novel Influenza-H1N1 -09, live virus for nasal administration Shania Queden MICROBIOLOGY COORDINATOR.BLUEPRINTER Work Phone: [facility] 06-03-2009 influenza virus vacc ine, unspecified formulation Humera Gillis MA [facility] 11-28-2007 meningococcal polysaccharide (groups A, C, Y and W-135) diphtheria toxoid conjugate vaccine (MCV4P) Shania Queden MICROBIOLOGY COORDINATOR.BLUEPRINTER Work Phone: [facility] 03-20-2005 hepatitis B vaccine, pediatric or pediatric/adolescent dosage Shania Queden MICROBIOLOGY COORDINATOR.BLUEPRINTER Work Phone: [facility] 03-15-2004 hepatitis B vaccine, pediatric or pediatric/adolescent dosage Shania Queden MICROBIOLOGY COORDINATOR.BLUEPRINTER Work Phone: [facility] 03-15-2004 TD(adult) unspecifie d formulation Shania Queden MICROBIOLOGY COORDINATOR.BLUEPRINTER Work Phone: [facility] 03-04-2001 hepatitis B vaccine, pediatric or pediatric/adolescent dosage Shania Queden MICROBIOLOGY COORDINATOR.BLUEPRINTER Work Phone: [facility] 03-04-2001 measles, mumps and rubella virus vaccine Shania Queden MICROBIOLOGY COORDINATOR.BLUEPRINTER Work Phone: [facility] 02-22-1994 haemophilus influenz ae type b vaccine, conjugate unspecified formulation Shania Queden MICROBIOLOGY COORDINATOR.BLUEPRINTER Work Phone: [facility] 02-15-1994 diphtheria, tetanus toxoids and acellular pertussis vaccine, unspecified formulation Shania Queden MICROBIOLOGY COORDINATOR.BLUEPRINTER Work Phone: [facility] 02-15-1994 poliovirus vaccine, unspecified formulation Shania Queden MICROBIOLOGY COORDINATOR.BLUEPRINTER Work Phone: [facility] 07-20-1993 haemophilus influenz ae type b vaccine, conjugate unspecified formulation Shania Queden MICROBIOLOGY COORDINATOR.[facility] Work Phone: [facility] 05-25-1993 haemophilus influenz ae type b vaccine, conjugate unspecified formulation Shania Queden MICROBIOLOGY COORDINATOR.BLUEPRINTER Work Phone: [facility] 01-15-1991 diphtheria, tetanus toxoids and pertussis vaccine Shania Queden MICROBIOLOGY COORDINATOR.BLUEPRINTER Work Phone: [facility] 01-15-1991 poliovirus vaccine, unspecified formulation Shania Queden MICROBIOLOGY COORDINATOR.BLUEPRINTER Work Phone: [facility] 05-15-1990 haemophilus influenz ae type b vaccine, conjugate unspecified formulation Shania Queden MICROBIOLOGY COORDINATOR.BLUEPRINTER Work Phone: [facility] 05-15-1990 measles, mumps and rubella virus vaccine Shania Queden MICROBIOLOGY COORDINATOR.BLUEPRINTER Work Phone: [facility] 11-14-1989 diphtheria, tetanus toxoids and pertussis vaccine Shania Queden MICROBIOLOGY COORDINATOR.BLUEPRINTER Work Phone: [facility] 05-23-1989 diphtheria, tetanus toxoids and pertussis vaccine Shania Queden MICROBIOLOGY COORDINATOR.BLUEPRINTER Work Phone: [facility] 05-23-1989 poliovirus vaccine, unspecified formulation Shania Queden MICROBIOLOGY COORDINATOR.BLUEPRINTER Work Phone: [facility] 02-07-1989 diphtheria, tetanus toxoids and pertussis vaccine Shania Queden MICROBIOLOGY COORDINATOR.BLUEPRINTER Work Phone: [facility] 02-07-1989 poliovirus vaccine, unspecified formulation Shania Queden MICROBIOLOGY COORDINATOR.[facility] Work Phone: [facility] Payers Date Payer Category Payer Medicaid [id number] 2024 Self-pay 2023 Unknown [id number] 2022 Medicaid [employer] Member [place] bscriber Plan / Payer (Effective 2022-Present) Name: Gabriela Vidal Jr. Relation to Subscriber: Self Name: Gabriela Vidal Jr. Payer ID: [id number] (NAIC) Group ID: Not on file Type: Medicaid Address: [address] [address] [place] [id number] 2022 Private Health Insurance [employer] HU[employer] MEDICAID [facility] [id number] 2022-Present [address] [address] [place] [address] Medicaid [id number] 2022 Unknown 2022 Unknown [id number] 2019 Unknown ANTHEM BLUE CARD PPO OOS [id number] 2019-Present [phone] [address] [place] [address] PPO [id number] 1988 Unknown [id number] Unknown [id number] Unknown [id number] Unknown [id number] Unknown [id number] Unknown [id number] Social History Date Type Detail Facility Start: 05-18-2019 End: 04-04-2023 Tobacco smoking status NHIS Current every day smoker [facility] Work Phone: Start: 05-18-2019 End: 03-12-2024 Alcohol intake Never [place] [employer] Work Phone: Start: 05-18-2019 History SDOH Alcohol Frequency 1 [place], [place] Start: 1990 Sex Assigned At Not on file [place] History of tobacco use Cigarette Smoker C [facility] Work Phone: Start: 07-16-2014 End: 03-12-2024 Cigarettes smoked current (pack per day) - Reported 1 [facility] Work Phone: Start: 07-16-2014 End: 04-04-2023 Tobacco use and exposure Smokeless tobacco non-user [facility] Work Phone: Start: 01-03-2022 End: 01-15-2024 Alcohol intake Ex-drinker (finding) [facility] Start: 05-17-2020 History SDOH Alcohol Frequency 2 [facility] Start: 02-02-2020 History SDOH Alcohol Comment 5 times a year [facility] Start: 12-24-2021 End: 01-03-2022 Exposure to SARS-CoV-2 (event) Not sure [facility] Start: 09-28-2023 Tobacco smokin g consumption unknown [facility] How often to you hav e a drink containing alcohol? Monthly or less [facility] Work Phone: Average Number of Drinks Not on file [facility] Start: 1990 Sex Assigned At Male W [facility] Functional Status Date Assessment Result Facility 07-16-2014 Are you deaf, or do you have serious difficulty hearing No 07/16/2014 8:04 AM Ladi Ocampo Ma No [facility] 07-16-2014 Are you blind, or do you have serious difficulty seeing, even when wearing glasses No 07/16/2014 8:04 AM Ladi Ocampo Ma No [facility] 07-16-2014 Do you have serious difficulty walking or climbing stairs No 07/16/2014 8:04 AM Ladi Ocampo Ma No [facility] 07-16-2014 Do you have difficul ty dressing or bathing No 07/16/2014 8:04 AM Ladi Ocampo Ma No [facility] 07-16-2014 Because of a physica l, mental, or emotional condition, do you have difficulty doing errands alone such as visiting a physician's office or shopping No 07/16/2014 8:04 AM FRANCIA Angelo MaLadi No [facility] Mental Status Date Assessment Result Facility 07-16-2014 Because of a physica l, mental, or emotional condition, do you have serious difficulty concentrating, remembering, or making decisions Yes 07/16/2014 8:04 AM Ladi Ocampo Ma Yes [facility] Clinical Notes 01-06-2022 to 01-13-2025 Estephania Lemos LPN - 01/12/2025 2:17 PM EDTEstephania Lemos LPN - 04/21/2024 4:51 PM EDTTelephone Encounter - Shania Vieira APRN.BLUEPRINTER - 01/28/2024 12:12 PM EDT Note Date & Type Note Facility 01-13-2025 Note HNO ID: [id number] Author: ESTEPHANIA LEMOS LPN Service: ? Author Type: LICENSED NURSE Type: Progress Notes Filed: 01/13/2025 09:29 Note Text: ED Follow-Up Note Provider Action / FYI: Call completed by: AUGUSTO Patient seen in ED: Out of Network ED Contact made with Patient: No, unable to leave message. No longer working number. Estephania Lemos LPN January 13, 2025 9:29 AM [facility] 01-12-2025 Note HNO ID: [id number] Author: ESTEPHANIA LEMOS LPN Service: ? Author Type: LICENSED NURSE Type: Progress Notes Filed: 01/12/2025 14:18 Note Text: ED Follow-Up Note Provider Action / FYI: Call completed by: AUGUSTO Patient seen in ED: Out of Network ED Contact made with Patient: No, unable to leave message. Phone number is no longer in service. Estephania Lemos LPN January 12, 2025 2:18 PM [facility] 01-12-2025 History of Present illness Narrative ED Follow-Up Note Provider Action / FYI: Call completed by: AUGUSTO Patient seen in ED: Out of Network ED Contact made with Patient: No, unable to leave message. Phone number is no longer in service. Estephania Lemos LPN January 12, 2025 2:18 PM documented in this encounter [facility] 01-12-2025 Note Patient Outreach (AG FAMPLE) GABRIELA VIDAL JR. ([id number]) 1990 M Date Time Provider Department 01/12/25 [...] Date Reviewed: 01/15/2024 Reviewed by: Shania Vieira APRN.BLUEPRINTER - Fully Assessed Reason for Visit: ED [...] by ESTEPHANIA LEMOS on 01/12/25 [facility] 01-07-2025 Discharge summary [facility] 04-21-2024 Note HNO ID: [id number] Author: ESTEPHANIA LEMOS LPN Service: ? Author Type: LICENSED NURSE Type: Progress Notes Filed: 04/23/2024 07:40 Note Text: TRANSITIONAL CARE MANAGEMENT (TCM) COMMUNITY MONITORING PROGRAM - [place] Provider Action/FYI: SUMMARY: Pt discharged from [facility] on 04/19/2024. Admitted for: ISABELLA, COVID-19 Patient seen Inpatient NURY Visit? No. Patient seen ICARE Program? No. Contact made with patient: No - next outreach attempt will be on next business day No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 abuse patient.[facility] ColumbusIn the event this information is protected by the Federal Confidentiality of Alcohol and Drug Abuse Patient Records regulations: The Federal rules restrict any use of the information to criminally investigate or prosecute any alcohol or drug abuse patient.[facility] ColumbusIn the event this information is protected by the Federal Confidentiality of Alcohol and Drug Abuse Patient Records regulations: The Federal rules restrict any use of the information to criminally investigate or prosecute any alcohol or drug abuse patient.[facility] ColumbusIn the event this information is protected by the Federal Confidentiality of Alcohol and Drug Abuse Patient Records regulations: The Federal rules restrict any use of the information to criminally investigate or prosecute any alcohol or drug abuse patient.[facility] ColumbusIn the event this information is protected by the Federal Confidentiality of Alcohol and Drug Abuse Patient Records regulations: The Federal rules restrict any use of the information to criminally investigate or prosecute any alcohol or drug abuse patient.[facility] ColumbusIn the event this information is protected by the Federal Confidentiality of Alcohol and Drug Abuse Patient Records regulations: The Federal rules restrict any use of the information to criminally investigate or prosecute any alcohol or drug abuse patient.[facility] ColumbusIn the event this information is protected by the Federal Confidentiality of Alcohol and Drug Abuse Patient Records regulations: The Federal rules restrict any use of the information to criminally investigate or prosecute any alcohol or drug abuse patient.[facility] the event this information is protected by the Federal Confidentiality of Alcohol and Drug Abuse Patient Records regulations: The Federal rules restrict any use of the information to criminally investigate or prosecute any alcohol or drug abuse patient.[facility] the event this information is protected by the Federal Confidentiality of Alcohol and Drug Abuse Patient Records regulations: The Federal rules restrict any use of the information to criminally investigate or prosecute any alcohol or drug abuse patient.[facility] the event this information is protected by the Federal Confidentiality of Alcohol and Drug Abuse Patient Records regulations: The Federal rules restrict any use of the information to criminally investigate or prosecute any alcohol or drug abuse patient.[facility] Care Teams (unrecognized sec tion and content) Endband Cutter Hand Relationship Specialty Start Date End Date Shania Vieira APRN.[facility] [address] [place] [address] PCP - General Family Practice 05/17/20 Endband Cutter Hand Relationship Specialty Start Date End Date Shania Vieira, MICROBIOLOGY COORDINATOR.[employer] [address] [place] [address] PCP - General Family Medicine 05/17/20 Endband Cutter Hand Relationship Specialty Start Date End Date Shania Vieira, MICROBIOLOGY COORDINATOR.[employer] [address] [facility] [place] [address] PCP - General Family Medicine 05/17/20 Endband Cutter Hand Relationship Specialty Start Date End Date Shania Vieira, MICROBIOLOGY COORDINATOR.[employer] [address] [facility] [place] [address] PCP - General Family Medicine 05/17/20 Endband Cutter Hand Relationship Specialty Start Date End Date Shania Vieira, MICROBIOLOGY COORDINATOR.[employer] [address] [facility] [place] [address] PCP - General Family Medicine 05/17/20 Endband Cutter Hand Relationship Specialty Start Date End Date Shania Vieira, MICROBIOLOGY COORDINATOR.[employer] [address] [place] [address] PCP - General Family Medicine 05/17/20 Endband Cutter Hand Relationship Specialty Start Date End Date Shania Vieira, MICROBIOLOGY COORDINATOR.[employer]UE[employer]INTER [address] [facility] [place] [place] [address] PCP - General Family Medicine 05/17/20 Endband Cutter Hand Relationship Specialty Start Date End Date Shania Vieira, MICROBIOLOGY COORDINATOR.[employer] [address] [place] [address] PCP - General Family Medicine 05/17/20 Endband Cutter Hand Relationship Specialty Start Date End Date Shania Vieira, MICROBIOLOGY COORDINATOR.[employer] [address] [place], [place] [id number] PCP - General Family Medicine 05/17/20 Team Status: Active Member Role Status Dates No Primary Care Physician Primary Care Provider Active Team Status: Inactive Member Role Status Dates Dr. Jose E Meier DO Emergency Provider Active No Primary Care Physician Primary Care Provider Active Endband Cutter Hand Relationship Specialty Start Date End Date Shania Vieira, MICROBIOLOGY COORDINATOR.[employer] [address] [place] [address] PCP - General Family Medicine 01/15/24 Endband Cutter Hand Relationship Specialty Start Date End Date Shania Vieira, MICROBIOLOGY COORDINATOR.[employer] [address] [place], [place] [id number] PCP - General Family Medicine 01/15/24 Endband Cutter Hand Relationship Specialty Start Date End Date Shania Vieira, MICROBIOLOGY COORDINATOR.[employer] [address] [place], [place] [id number] PCP - General Family Medicine 05/17/20 12/16/23 Endband Cutter Hand Relationship Specialty Start Date End Date Shania Vieira, MICROBIOLOGY COORDINATOR.[employer] [address] [place] [address] PCP - General Family Medicine 01/15/24 Team Status: Active Member Role Status Dates Shania Vieira AUTOMOBILE RENTAL REPRESENTATIVE, AUTOMOBILE RENTAL REPRESENTATIVE-C Primary Care Provider Active Team Status: Inactive Member Role Status Dates Shania Vieira AUTOMOBILE RENTAL REPRESENTATIVE, AUTOMOBILE RENTAL REPRESENTATIVE-C Primary Care Provider Active Start: January 07, 2025 End: January 07, 2025 Dr. Stephan Burk MD Emergency Provider Active S tart: January 07, 2025 End: January 07, 2025 Endband Cutter Hand Relationship Specialty Start Date End Date Shania Vieira, MICROBIOLOGY COORDINATOR.[employer] [address] [place] [address] PCP - General Family Medicine 01/15/24 <item> [...] BE BASED ON THE PRIMARY CLINICAL RECORDS. [employer] [facility]. provides no warranty or guarantee of the accuracy or completeness of information in this document.
[2025-01-21 23:03] VITALS: BP 111/70; PULSE 112; RESP 16; TEMP 36.7; O2SAT 100
[2025-01-22] MEDS: Dextrose 5%/0.9% NaCl 1,000 ML 110 ML IV ×3 (00:19→22:04)
[2025-01-22] MEDS: Heparin Injection (Vial) 5,000 UNIT/ML VIAL 5000 UNIT SC ×3 (00:20→21:47)
[2025-01-22] MEDS: Ketorolac 30 MG/ML Syringe IV ×4 (00:20→18:00)
[2025-01-22] MEDS: Acetaminophen 500 MG Tablet 1000 MG PO ×4 (00:20→21:48)
[2025-01-22] MEDS: metroNIDAZOLE 500 MG/100 ML BAG 100 MG IV ×3 (05:00→22:03)
--- OUTSIDE RECORDS SUMMARY | 2025-01-22 05:03 | XMS RPT_ITS | CCD ---
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 mg/dL Normal 8.5-10.1 [facility] Comment on above: Performed By: #### L 100.0100, L500.4050 ####[facility] [address] [place], [address] Chloride [Moles/Vol] 108 mmol/L High 98-107 [facility] Comment on above: Performed By: #### L 100.0100, L500.4050 ####[facility] [address] [place], [address] CO2 [Moles/Vol] 27.0 mmol/L Normal 21.0-32.0 [facility] Comment on above: Performed By: #### L 100.0100, L500.4050 ####[facility] [address] [place], [address] Creatinine [Mass/Vol] 1.16 mg/dL Normal 0.70-1.30 [facility] Comment on above: Result Comment: The validity of the calculated GFR GFRAA in patients over 70 years has not been determined. Clinical correlation is essential. Performed By: #### L 100.0100, L500.4050 ####[facility] [address] [place], [address] ECRCL 94.67 ml/min Normal [facility] Comment on above: Performed By: #### L 100.0100, L500.4050 ####[facility] [address] [place], [address] EST GFR - AA 92 mL/min Normal >60 [facility] Comment on above: Result Comment: Afri can Congolese GFR Calc Performed By: #### L 100.0100, L500.4050 ####[facility] [address] [place], [address] GAP 3 Low 5-15 [facility] Comment on above: Performed By: #### L 100.0100, L500.4050 ####[facility] [address] [place], [address] GFR/1.73 sq M.predicted among non-blacks MDRD (S/P/Bld) [Vol rate/Area] 76 mL/min/{1.73_m2} Normal >60 [facility] Comment on above: Result Comment: Non- GFR Calc Performed By: #### L 100.0100, L500.4050 ####[facility] [address] [place], [address] Globulin (S) [Mass/Vol] 2.8 g/dL Normal 2.2-4.2 [facility] Comment on above: Performed By: #### L 100.0100, L500.4050 ####[facility] [address] [place], [address] Glucose [Mass/Vol] 100 mg/dL Normal 74-106 [facility] Comment on above: Result Comment: Fast ing Glucose result from 100 to 125 mg/dL suggests IMPAIRED HOMEOSTASIS per A.D.A. criteria. Performed By: #### L 100.0100, L500.4050 ####[facility] [address] [place], [address] Potassium [Moles/Vol] 4.4 mmol/L Normal 3.5-5.1 [facility] Comment on above: Performed By: #### L 100.0100, L500.4050 ####[facility] [address] [place], [address] Sodium [Moles/Vol] 138 mmol/L Normal 136-145 [facility] Comment on above: Performed By: #### L 100.0100, L500.4050 ####[facility] [address] [place], [address] T PROT 6.2 g/dL Low 6.4-8.2 [facility] Comment on above: Performed By: #### L 100.0100, L500.4050 ####[facility] [address] [place], [address] Urea nitrogen [Mass/Vol] 25 mg/dL High 7-18 [facility] Comment on above: Performed By: #### L 100.0100, L500.4050 ####[facility] [address] [place], [address] Discharge Instructionon 03-31 Discharge Instruction [facility] Medical Records Department [address] [place] [address] Instructions for Home/Discharge Instructions 04/19/24 1213 MR#: [id number] Acct: [id number] Name: DANNAGABRIELA CRESPO Rep #: [id number] : 1990 33 From: Fili Valencia DO [...] DAILY Referrals / Follow Up: Shania Vieira TRAPPER ANIMAL, TRAPPER ANIMAL-C [Primary Care Provider] - Disposition Disposition (needs filled in before D/C Order can be placed): Home, Self Care 04/19/24 1215 Fili Valencia DO CC: [employer]PER [employer]IM[employer]-C Shania Vieira; Dr. Lucero Vidal MD Signed Normal [facility] ENTERIC PATHOGEN PANEL STOOL on 04-19-2024 [...] VIBRIO Not Detected Yersinia Not Detected Normal [facility] Comment on above: Performed By: #### M 100637, M100.6701 #### [facility] [address] [facility] [place], [address] Abdomen/Pelvis without Conto n 04-18-2024 Abdomen/Pelvis without Cont [facility] Imaging Services [address] [place] [id number] Abdomen/Pelvis without Cont MR#: [id number] Acct: [id number] Name: GABRIELA VIDAL Jr. Rep #: [id number] : 1990 M 33 From: [place] salcedo MD PCP: Shania Vieira, TR[employer]PER [employer]IMAL-C Status: REG ER Study: Abdomen/Pelvis without Cont Date of Exam: 03/31 Exam# [id number] Ordering Dr: [place] [id number] EXAM: CT ABDOMEN AND PELVIS WITHOUT INTRAVENOUS [...] , CC: ELOISA Vieira; Esteban Medel DO Lehr Tender: Signed Normal [facility] BNP,B-Type NATRIURETIC PEPTI Cornelia 04-18-2024 Natriuretic peptide B (Bld) [Mass/Vol] 14.3 pg/mL Normal 0-100 [facility] Comment on above: Performed By: #### M 100.637, M100.6796 #### [facility] [address] [place], [place], [address] Basic Metabolic Profile (BMP )on 04-18-2024 BUN/CRE 10.8 RATIO Normal 10-20 [facility] Comment on above: Performed By: #### L 100.0100, L501.2450, L500.2500, L500.3400, L501.5200 #### [facility] [address] [place], [address] CA,Total 10.2 mg/dL High 8.5-10.1 [facility] Comment on above: Performed By: #### L 100.0100, L501.2450, L500.2500, L500.3400, L501.5200 #### [facility] [address] [place], [address] Chloride [Moles/Vol] 101 mmol/L Normal 98-107 [facility] Comment on above: Performed By: #### L 100.0100, L501.2450, L500.2500, L500.3400, L501.5200 #### [facility] [address] [place], [address] CO2 [Moles/Vol] 20.0 mmol/L Low 21.0-32.0 [facility] Comment on above: Performed By: #### L 100.0100, L501.2450, L500.2500, L500.3400, L501.5200 #### [facility] [address] [place], [address] Creatinine [Mass/Vol] 2.87 mg/dL High 0.70-1.30 [facility] Comment on above: Result Comment: The validity of the calculated GFR GFRAA in patients over 70 years has not been determined. Clinical correlation is essential. Performed By: #### L 100.0100, L501.2450, L500.2500, L500.3400, L501.5200 #### [facility] [address] [place], [address] ECRCL 38.26 ml/min Normal [facility] Comment on above: Performed By: #### L 100.0100, L501.2450, L500.2500, L500.3400, L501.5200 #### [facility] [address] [place], [address] EST GFR - AA 32 mL/min Low >60 [facility] Comment on above: Result Comment: Afri can Congolese GFR Calc Performed By: #### L 100.0100, L501.2450, L500.2500, L500.3400, L501.5200 #### [facility] [address] [place], [address] GAP 16 High 5-15 [facility] Comment on above: Performed By: #### L 100.0100, L501.2450, L500.2500, L500.3400, L501.5200 #### [facility] [address] [place], [address] GFR/1.73 sq M.predicted among non-blacks MDRD (S/P/Bld) [Vol rate/Area] 27 mL/min/{1.73_m2} Low >60 [facility] Comment on above: Result Comment: Non- GFR Calc Performed By: #### L 100.0100, L501.2450, L500.2500, L500.3400, L501.5200 #### [facility] [address] [place], [address] Glucose [Mass/Vol] 125 mg/dL High 74-106 [facility] Comment on above: Result Comment: Fast ing Glucose result from 100 to 125 mg/dL suggests IMPAIRED HOMEOSTASIS per A.D.A. criteria. Performed By: #### L 100.0100, L501.2450, L500.2500, L500.3400, L501.5200 #### [facility] [address] [place], [address] Potassium [Moles/Vol] 4.5 mmol/L Normal 3.5-5.1 [facility] Comment on above: Performed By: #### L 100.0100, L501.2450, L500.2500, L500.3400, L501.5200 #### [facility] [address] [place], [address] Sodium [Moles/Vol] 137 mmol/L Normal 136-145 [facility] Comment on above: Performed By: #### L 100.0100, L501.2450, L500.2500, L500.3400, L501.5200 #### [facility] [address] [place], [address] Urea nitrogen [Mass/Vol] 31 mg/dL High 7-18 [facility] Comment on above: Performed By: #### L 100.0100, L501.2450, L500.2500, L500.3400, L501.5200 #### [facility] [address] [place], [address] CBC W/Diff, Automatedon 092 0-2023 Absolute Lymph 1.05 X10 3/uL Normal 0.83-4.51 [facility] Comment on above: Performed By: #### M 100.637, M100.6796 #### [facility] [address] [place], [address] Absolute Neut 15.1 X10 3/uL High 2.0-7.7 [facility] Comment on above: Performed By: #### M 100.637, M100.6796 #### [facility] [address] [place], [address] Basophils/100 WBC (Bld) 0.1 % Normal 0-1 [facility] Comment on above: Performed By: #### M 100.637, M100.6796 #### [facility] [address] [place], [address] Eosinophils/100 WBC (Bld) 0.0 % Normal 0-5 [facility] Comment on above: Performed By: #### M 100.637, M100.6796 #### [facility] [address] [place], [address] Erythrocyte distribution width (RBC) [Ratio] 13.3 % Normal 11.6-14.6 [facility] Comment on above: Performed By: #### M 100.637, M100.6796 #### [facility] [address] [place], [address] Hematocrit (Bld) [Volume fraction] 43.8 % Normal 40-54 [facility] Comment on above: Performed By: #### M 100.637, M196 #### [facility] [address] [place], [address] Hemoglobin (Bld) [Mass/Vol] 14.8 g/dL Normal 13.0-16.5 [facility] Comment on above: Performed By: #### M 100.637, #### [facility] [address] [place], [address] IG% 0.400 Normal 0.0-0.9 [facility] Comment on above: Result Comment: IG% - Immature Granulocytes (promyelocytes, myelocytes and metamyelocytes) > 1% indicates that a LEFT SHIFT is Present. Performed By: #### M 100.637, 96 #### [facility] [address] [place], [address] Lymphocytes/100 WBC (Bld) 6.3 % Low 19-41 [facility] Comment on above: Performed By: #### M 100.637, 96 #### [facility] [address] [place], [address] MCH (RBC) [Entitic mass] 29.5 pg Normal 27.0-32.0 [facility] Comment on above: Performed By: #### M 100.637, 96 #### [facility] [address] [place], [address] MCHC (RBC) [Mass/Vol] 33.8 g/dL Normal 32-36 [facility] Comment on above: Performed By: #### M 100.637, 96 #### [facility] [address] [place], [address] MCV (RBC) [Entitic vol] 87.3 fL Normal 80-94 [facility] Comment on above: Performed By: #### M 100.637, M1.96 #### [facility] [address] [place], [address] Monocytes/100 WBC (Bld) 2.0 % Normal 0-10 [facility] Comment on above: Performed By: #### M 100.637, .96 #### [facility] [address] [place], [address] Neutrophils/100 WBC (Bld) 91.2 % High 47-70 [facility] Comment on above: Performed By: #### M 100.637, 96 #### [facility] [address] [place], [address] Nucleated RBC (Bld) [#/Vol] 0 10*3/uL Normal 0-5 [facility] Comment on above: Performed By: #### M 100.637, .96 #### [facility] [address] [place], [address] Platelet mean volume (Bld) [Entitic vol] 10.2 fL Normal 6.2-12.0 [facility] Comment on above: Performed By: #### M 100.637, .96 #### [facility] [address] [place], [address] Platelets (Bld) [#/Vol] 269 10*3/uL Normal 150-450 [facility] Comment on above: Performed By: #### M 100.637, M1.96 #### [facility] [address] [place], [address] RBC (Bld) [#/Vol] 5.02 10*6/uL Normal 4.6-6.2 [facility] Comment on above: Performed By: #### M 100.637, M100.6796 #### [facility] [address] [place], [address] RDW SD 42.8 fl Normal 35.1-43.9 [facility] Comment on above: Performed By: #### M 100.637, M100.6796 #### [facility] [address] [place], [address] WBC (Bld) [#/Vol] 16.6 10*3/uL High 4.4-11.0 [facility] Comment on above: Performed By: #### M 100.637, M100.6796 #### [facility] [address] [place], [address] SMEAR COMMENT SCANNED Normal [facility] Comment on above: Result Comment: NEUT ROPHILLIA PRESENT Performed By: #### L 100.0100, L501.2450, L500.2500, L500.3400, L501.5200 #### [facility] [address] [place], [address] CDIFF (PCR)on 04-18-2024 CDIFF Is the patient receiving laxatives? N New/unexplained onset of 3 or more stools in past 24 hrs? Y Pending 027 027 NAP1-B1 Presumptive Negative *for epidemiolologic???use C. Diff PCR Negative- No toxigenic C. Diff Detected Normal [facility] Comment on above: Performed By: #### M 100.637, M100.6796 #### [facility] [address] [place], [address] CPK Total, Creatine Kinaseon 04-18-2024 CPK TOTAL 790 U/L High 39-308 [facility] Comment on above: Order Comment: Comme nts: add to ED labs Performed By: #### L 501.2100 #### [facility] [address] [place], [address] CRPon 04-18-2024 C-REACTIVE PROT 2.95 mg/L Normal 0.0-3.0 [facility] Comment on above: Order Comment: Comme nts: May add to ED labsmay add to ED labs Result Comment: C-Re active Protein (CRP) provides useful information for the diagnosis, therapy and monitoring of inflammatory processes and associated diseases. For the evaluation of Relative Risk for Cardiovascular Disease, a High Sensitivity CRP (HSCRP) should be ordered. Performed By: #### M 100.637, M100.6796 #### [facility] [address] [place], [address] Comprehensive Metabolic Prof ilon 04-18-2024 Albumin [Mass/Vol] 3.8 g/dL Normal 3.2-5.0 [facility] Comment on above: Performed By: #### M 100.637, M100.6796 #### [facility] [address] [place], [address] Albumin/Globulin [Mass ratio] 1.2 {ratio} Normal 0.9-2.4 [facility] Comment on above: Performed By: #### M 100.637, M100.6796 #### [facility] [address] [place], [address] ALK P 72 U/L Normal 45-117 [facility] Comment on above: Performed By: #### M 100.637, M100.6796 #### [facility] [address] [place], [address] ALT [Catalytic activity/Vol] 51 U/L Normal 16-61 [facility] Comment on above: Performed By: #### M 100.637, M100.6796 #### [facility] [address] [place], [address] AST [Catalytic activity/Vol] 62 U/L High 15-37 [facility] Comment on above: Performed By: #### M 100.637, M100.96 #### [facility] [address] [place], [address] Bilirubin [Mass/Vol] 1.00 mg/dL Normal 0.20-1.00 [facility] Comment on above: Result Comment: For patients on eltrombopag therapy, use of Dimension [place] TBIL is not recommended. Performed By: #### M 100.637, M100.96 #### [facility] [address] [place], [address] BUN/CRE 14.6 RATIO Normal 10-20 [facility] Comment on above: Performed By: #### M 100.637, M1.96 #### [facility] [address] [place], [address] CA,Total 8.9 mg/dL Normal 8.5-10.1 [facility] Comment on above: Performed By: #### M 100.637, M100.96 #### [facility] [address] [place], [address] Chloride [Moles/Vol] 109 mmol/L High 98-107 [facility] Comment on above: Performed By: #### M 100.637, M100.96 #### [facility] [address] [place], [address] CO2 [Moles/Vol] 20.0 mmol/L Low 21.0-32.0 [facility] Comment on above: Performed By: #### M 100.637, M100.6796 #### [facility] [address] [place], [address] Creatinine [Mass/Vol] 1.64 mg/dL High 0.70-1.30 [facility] Comment on above: Result Comment: The validity of the calculated GFR GFRAA in patients over 70 years has not been determined. Clinical correlation is essential. Performed By: #### M 100.637, M100.96 #### [facility] [address] [place], [address] ECRCL 66.96 ml/min Normal [facility] Comment on above: Performed By: #### M 100.637, M100.96 #### [facility] [address] [place], [address] EST GFR - AA 62 mL/min Normal >60 [facility] Comment on above: Result Comment: Afri can [place]ese GFR Calc Performed By: #### M 100.637, M1.96 #### [facility] [address] [place], [address] GAP 10 Normal 5-15 [facility] Comment on above: Performed By: #### M 100.637, .96 #### [facility] [address] [place], [address] GFR/1.73 sq M.predicted among non-blacks MDRD (S/P/Bld) [Vol rate/Area] 51 mL/min/{1.73_m2} Low >60 [facility] Comment on above: Result Comment: Non- GFR Calc Performed By: #### M 100.637, M1.96 #### [facility] [address] [place], [address] Globulin (S) [Mass/Vol] 3.1 g/dL Normal 2.2-4.2 [facility] Comment on above: Performed By: #### M 100.637, M100.96 #### [facility] [address] [place], [address] Glucose [Mass/Vol] 116 mg/dL High 74-106 [facility] Comment on above: Result Comment: Fast ing Glucose result from 100 to 125 mg/dL suggests IMPAIRED HOMEOSTASIS per A.D.A. criteria. Performed By: #### M 100.637, M100.6796 #### [facility] [address] [place], [address] Potassium [Moles/Vol] 4.2 mmol/L Normal 3.5-5.1 [facility] Comment on above: Performed By: #### M 100.637, M100.6796 #### [facility] [address] [place], [address] Sodium [Moles/Vol] 139 mmol/L Normal 136-145 [facility] Comment on above: Performed By: #### M 100.637, M100.6796 #### [facility] [address] [place], [address] T PROT 6.9 g/dL Normal 6.4-8.2 [facility] Comment on above: Performed By: #### M 100.637, M100.96 #### [facility] [address] [place], [address] Urea nitrogen [Mass/Vol] 24 mg/dL High 7-18 [facility] Comment on above: Performed By: #### M 100.637, M100.6796 #### [facility] [address] [place], [address] D-Dimer Quantitative (DVT/PE )on 04-18-2024 D-DIMER QUANT 0.39 FEU/ug/m Normal 0.27-0.49 [facility] Comment on above: Result Comment: NORM AL D-Dimer level (<0.50) indicates no DVT or PE. Performed By: #### M 100.637, M100.6796 #### [facility] [address] [place], [address] Emergency Department Summary on 04-18-2024 Emergency Department Summary [facility] Medical Records Department [address] [place] [id number] Emergency Department Summary 04/18/24 MR#: [id number] Acct: [id number] Name: GABRIELA VIDAL Jr. Rep #: [id number] : 1990 33 From: Esteban Medel DO PCP: ELOISA Braden Status:ADM IN Location: MS3 [facility]-2 HPI History of Present Illness Chief Complaint: Nausea/Vomiting [...] his coworker comes in for evaluation PFSH PFSH Medical History ADHD Schizophrenia Mood [...] viral st (more content not included)... Normal [facility] Erythrocyte Sed Rateon 04-18 SED RATE Normal 0-20 [facility] Comment on above: Result Comment: JIMMY ASKEW,RN AWARE OF CANCELLING, SHE WILL INFORM Performed By: #### M 100638, M100.6796 #### [facility] [address] [place], [place], [address] Ferritinon 04-18-2024 Ferritin [Mass/Vol] 175 ng/mL Normal 26-388 [facility] Comment on above: Order Comment: Comme nts: May add to ED labsmay add to ED labs Performed By: #### M 100.159, M100.2696 #### [facility] [address] [place], [address] H AND P Exam - Hospitaliston 04-18-2024 H&P Exam - Hospitalist [facility] Medical Records Department [address] [facility] [place] [address] H P Exam - Hospitalist 04/18/24 0228 MR#: [id number] Acct: [id number] Name: GABRIELA VIDAL Rep #: [id number] : 1990 33 From: Lucero Vidal MD PCP: ELOISA Braden Status:ADM IN Location: MS3 [facility] HPI - General General Date of Admission: 04/18/24 Date of Service: 04/18/24 Chief Complaint: N/V/D HPI Narrative The patient is a 33 y/o M w/ PMHx: Anxiety and Depression/Mood disorder/High suspicion underlying schizophrenia with history of frequent auditory hallucinations, Tobacco use, CKD stage II per GFR trending, History of Polysubstance abuse (Fentanyl, Methamphetamines per prior records) who presents to [facility] ED on 04/18/24 with history of [...] Examination: Genera (more content not included)... Normal [facility] HIV - WCHon 04-18-2024 HIV Non-Reactive Normal Nonreactive [facility] Comment on above: Order Comment: Reaso n for Exam: Hx polysubstance abuseReason for Exam: Hepatitis Screen Performed By: #### L 509.8000, L3890.6005, L3890.6100, L3890.6200, L3890.6300 ####[facility] [address] [place], [place], [id number] Hepatitis B Surface Antibody on 04-18-2024 HEP B Surf Ab Non-Reactive Normal [facility] Comment on above: Order Comment: Reaso n for Exam: Hx polysubstance abuseReason for Exam: Hepatitis Screen Result Comment: Non Reactive: Inconsistent with immunity less than <10 mIU/mL Reactive: Consistent with immunity greater than or equal to 10 mIU/mL Performed By: #### L 509.8000, L3890.6005, L3890.6100, L3890.6200, L3890.6300 ####[facility] [address] [place], [place], [id number] Hepatitis B Surface Antigeno n 04-18-2024 HEP B Surf Ag Non-Reactive Normal Nonreactive [facility] Comment on above: Order Comment: Reaso n for Exam: Hx polysubstance abuseReason for Exam: Hepatitis Screen Performed By: #### L 509.8000, L3890.6005, L3890.6100, L3890.6200, L3890.6300 ####[facility] [address] [place], [address] Hepatitis C Antibodyon 04-18 Hepatitis C AB Non-Reactive Normal Nonreactive [facility] Comment on above: Order Comment: Reaso n for Exam: Hx polysubstance abuseReason for Exam: Hepatitis Screen Result Comment: Non Reactive: < 0.8 Equivocal: >/= 0.8 to < 1.0 Reactive: >/= 1.0 The CDC requires that a reactive/equivocal HCV antibody result be sent out for confirmation. HCV Quant by PCR testing. Performed By: #### L 509.8000, L3890.6005, L3890.6100, L3890.6200, L3890.6300 ####[facility] [address] [place], [place], [address] L509.8000on 04-18-2024 Syphilis Abs Non-Reactive Normal [facility] Comment on above: Order Comment: Reaso n for Exam: Hx polysubstance abuseReason for Exam: Hepatitis Screen Performed By: #### L 509.8000, L3890.6005, L3890.6100, L3890.6200, L3890.6300 ####[facility] [address] [place], [address] LDHon 04-18-2024 LDH 338 U/L High 87-241 [facility] Comment on above: Order Comment: Comme nts: May add to ED labsmay add to ED labs Performed By: #### M 100.637, M100.6796 #### [facility] [address] [place], [address] Lipaseon 04-18-2024 Lipase [Catalytic activity/Vol] 17 U/L Normal 13-75 [facility] Comment on above: Result Comment: Aniyah castañeda note: LIPASE revised reference range effective 22. New Lipase methodology. Expected to produce lower values than the previous assay method. NEW Reference Range: 13 - 75 U/L Performed By: #### L 100.0100, L501.2450, L500.2500, L500.3400, L501.5200 #### [facility] [address] [place], [address] Liver Profileon 04-18-2024 Albumin [Mass/Vol] 4.8 g/dL Normal 3.2-5.0 [facility] Comment on above: Performed By: #### L 100.0100, L501.2450, L500.2500, L500.3400, L501.5200 #### [facility] [address] [place], [address] ALK P 85 U/L Normal 45-117 [facility] Comment on above: Performed By: #### L 100.0100, L501.2450, L500.2500, L500.3400, L501.5200 #### [facility] [address] [place], [address] ALT [Catalytic activity/Vol] 61 U/L Normal 16-61 [facility] Comment on above: Performed By: #### L 100.0100, L501.2450, L500.2500, L500.3400, L501.5200 #### [facility] [address] [place], [address] AST [Catalytic activity/Vol] 59 U/L High 15-37 [facility] Comment on above: Performed By: #### L 100.0100, L501.2450, L500.2500, L500.3400, L501.5200 #### [facility] [address] [place], [address] Bilirubin [Mass/Vol] 1.50 mg/dL High 0.20-1.00 [facility] Comment on above: Result Comment: For patients on eltrombopag therapy, use of Dimension [place] TBIL is not recommended. Performed By: #### L 100.0100, L501.2450, L500.2500, L500.3400, L501.5200 #### [facility] [address] [place], [address] Bilirubin.direct [Mass/Vol] 0.37 mg/dL High 0.00-0.30 [facility] Comment on above: Performed By: #### L 100.0100, L501.2450, L500.2500, L500.3400, L501.5200 #### [facility] [address] [place], [address] Globulin (S) [Mass/Vol] 3.6 g/dL Normal 2.2-4.2 [facility] Comment on above: Performed By: #### L 100.0100, L501.2450, L500.2500, L500.3400, L501.5200 #### [facility] [address] [place], [address] T PROT 8.4 g/dL High 6.4-8.2 [facility] Comment on above: Performed By: #### L 100.0100, L501.2450, L500.2500, L500.3400, L501.5200 #### [facility] [address] [place], [address] M100.678on 04-18-2024 M100.678 Copy of report sent to Infection Control Printer MS#[id number] 04/18/24 1335 ERICKA. CRITICAL VALUE CALLED TO LSPARR 04/18/24 0122 Abundio Leon. RESULTS READ BACK BY SAME. SARS-CoV-2 (COVID 19) A Positive A INFLUENZA A Negative INFLUENZA B Negative RSV PCR Negative SARS-CoV-2 (COVID 19 PCR) Normal [facility] Comment on above: Performed By: #### M 100.678 ####[facility] [address] [place], [address] Magnesiumon 04-18-2024 Magnesium [Mass/Vol] 2.2 mg/dL Normal 1.6-2.6 [facility] Comment on above: Performed By: #### L 100.0100, L501.2450, L500.2500, L500.3400, L501.5200 #### [facility] [address] [place], [address] Procalcitoninon 04-18-2024 Procalcitonin 3.46 ng/mL High 0.00-0.09 [facility] Comment on above: Result Comment: A [...] are obtained. Performed By: #### M 100.637, M196 #### [facility] [address] [place], [address] Urine Drug Screen (VISTA)on 04-18-2024 AMPHETAMINES Positive Abnormal <1000 ng/mL [facility] Comment on above: Performed By: #### M 100.637, 96 #### [facility] [address] [place], [address] BARBITIURATES Negative Normal < 200 ng/mL [facility] Comment on above: Performed By: #### M 100.637, 96 #### [facility] [address] [place], [address] BENZODIAZIPINE Negative Normal < 200 ng/mL [facility] Comment on above: Performed By: #### M 100.63, 96 #### [facility] [address] [place], [address] COCAINE Negative Normal < 300 ng/mL [facility] Comment on above: Performed By: #### M 100.637, 96 #### [facility] [address] [place], [address] ECSTACY Positive Abnormal < 500 ng/mL [facility] Comment on above: Performed By: #### M 100.637, 96 #### [facility] [address] [place], [address] METHADONE Negative Normal < 300 ng/mL [facility] Comment on above: Performed By: #### M 100.637, M196 #### [facility] [address] [place], [address] OPIATES Negative Normal < 300 ng/mL [facility] Comment on above: Performed By: #### M 100.637, M100.6796 #### [facility] [address] [place], [place], [address] PCP Negative Normal < 25 ng/mL [facility] Comment on above: Performed By: #### M 100.637, M100.6796 #### [facility] [address] [place], [place], [address] THC Positive Abnormal < 50 ng/mL [facility] Comment on above: Performed By: #### M 100.637, M100.6796 #### [facility] [address] [place], [place], [address] VISTA UDS PH 3 Normal [facility] Comment on above: Performed By: #### M 100.637, M100.6796 #### [facility] [address] [place], [place], [address] CNPLindy 01-28-2024 MARTHA Telephone (AGFAMPLE) GABRIELA VIDAL JR. ([id number]) 1990 M Date Time Provider Department 01/28/24 SHANIA VIEIRA During your visit today, we recorded the following information about you: Gracy Doss 01/28/2024 11:45 AM Signed Patient came to office because he is still in pain. Referral was give for Dr De Santiago. Please enter referral to patient chart. Thanks Shania Vieira APRN.CNP 01/28/2024 12:13 PM Signed Referral placed to orthopedics/sports medicine Allergies As of Date: 01/28/2024 (No Known Allergies) Date Reviewed: 01/15/2024 Reviewed by: Shania Vieira APRN.NUTRITIONAL SERVICES HOST - Fully Assessed Reason for Visit: Consult [502] Primary Visit Diagnosis:Acute pain of left shoulder [M25.512] Other Visit Diagnosis:Injury of left shoulder, initial encounter [S49.92XA] Order(s):CONSULT TO ORTHOPAEDICS [9092] Order #: [id number]: 1 FUTURE Prescriptions as of 01/28/2024 - [...] Encounter Status:Closed by SHANIA VIEIRA on 01/28/24 Normal [facility] Absolute lymphocyte countOrd ered By: Jose E Meier on 09-28-2023 Lymphocytes Auto (Unsp spec) [#/Vol] 1.95 10*3/uL 0.83-4.51 [facility] Automated lymphocyte count a s percentage of total leukocytesOrdered By: Jose E Meier on 09-28-2023 Lymphocytes/100 WBC Auto (Unsp spec) 19.5 % 19-41 [facility] Basophil percentageOrdered B y: Jose E Meier on 09-28-2023 Basophils/100 WBC (Bld) 0.5 % 0-1 [facility] Chloride [Moles/Vol] 113 mmol/L 98-107 [facility] Eosinophils/100 WBC (Bld) 0.3 % 0-5 [facility] Glucose [Mass/Vol] 114 mg/dL 74-106 [facility] Comment on above: Fasting Glucose resu lt from 100 to 125 mg/dL suggests IMPAIRED HOMEOSTASIS per A.D.A. criteria. Hemoglobin (Bld) [Mass/Vol] 14.9 g/dL 13.0-16.5 [facility] Monocytes/100 WBC (Bld) 5.9 % 0-10 [facility] Neutrophils (Bld) [#/Vol] 7.3 10*3/uL 2.0-7.7 [facility] Neutrophils/100 WBC (Bld) 73.3 % 47-70 [facility] Potassium [Moles/Vol] 3.7 mmol/L 3.5-5.1 [facility] Sodium [Moles/Vol] 143 mmol/L 136-145 [facility] WBC (Bld) [#/Vol] 10.0 10*3/uL 4.4-11.0 [facility] Determination of erythrocyte mean corpuscular volume (MCV)Ordered By: Jose E Meier on 09-28-2023 MCV (RBC) [Entitic vol] 89.6 fL 80-94 [facility] Erythrocyte distribution wid th ratioOrdered By: Jose E Meier on 09-28-2023 Erythrocyte distribution width (RBC) [Ratio] 12.3 % 11.6-14.6 [facility] Erythrocyte distribution wid th standard deviationOrdered By: Jose E Meier on 09-28-2023 Erythrocyte distribution width (RBC) [Entitic vol] 40.1 fL 35.1-43.9 [facility] Hematocrit Auto (Bld) [Volum e fraction]Ordered By: Jose E Meier on 09-28-2023 Hematocrit (Bld) [Volume fraction] 44.8 % 40-54 [facility] Immature granulocytes/100 WB C Auto (Bld)Ordered By: Jose E Meier on 09-28-2023 Immature granulocytes/100 WBC (Bld) 0.500 % 0.0-0.9 [facility] Comment on above: IG% - Immature Granu locytes (promyelocytes, myelocytes and metamyelocytes) > 1% indicates that a LEFT SHIFT is Present. Laboratory - Chemistry and C hemistry - challengeOrdered By: Jose E Meier on 09-28-2023 CO2 [Moles/Vol] 28.0 mmol/L 21.0-32.0 [facility] Urea nitrogen/Creatinine [Mass ratio] 15.7 mg/mg 10-20 [facility] - Drug toxicology Ordered By: Jose E Meier on 09-28-2023 Amphetamines Ql (U) Negative <1000 ng/mL [facility] Benzodiazepines Ql (U) Negative < 200 ng/mL [facility] Cannabinoids Screen Ql (U) Positive < 50 ng/mL [facility] Cocaine Ql (U) Negative < 300 ng/mL [facility] Opiates Ql (U) Negative < 300 ng/mL [facility] - Hematology and Cell countsOrdered By: Jose E Meier on 09-28-2023 MCH (RBC) [Entitic mass] 29.8 pg 27.0-32.0 [facility] MCHC (RBC) [Mass/Vol] 33.3 g/dL 32-36 [facility] Nucleated RBC/100 WBC (Bld) [Ratio] 0 % 0-5 [facility] Platelet mean volume (Bld) [Entitic vol] 10.8 fL 6.2-12.0 [facility] Platelets (Bld) [#/Vol] 256 10*3/uL 150-450 [facility] - Microbiology an d Antimicrobial susceptibilityOrdered By: Jose E Meier on 09-28-2023 SARS-CoV-2 (COVID-19) RNA CARLOS+probe Ql (Unsp spec) [facility] No Panel InformationOrdered By: Jose E Meier on 09-28-2023 Estimated Creatinine Clearance Calc 105.36 ml/min [facility] Estimated GFR (MDRD) Amer 107 mL/min >60 [facility] Comment on above: GFR Calc Estimated GFR (MDRD) Non-Af Amer 88 mL/min >60 [facility] Comment on above: Non- GFR Calc Ethyl Alcohol Level 4.0 mg/dL [facility] Comment on above: The serum:whole bloo d ethanol ratio is approximately 1.14and varies slightly with hematocrit. Medical Alcohol reference interval and critical value innon-tolerant individuals; 50 - 100 Impairment 100 Intoxication 100 - 250 Severe Poisoning 250 - 400 Deep/possible fatal coma MDMA (Ecstasy) Screen Negative < 500 ng/mL [facility] Urine Barbiturates Screen Negative < 200 ng/mL [facility] Urine Drug Screen Comment [facility] Comment on above: CONFIRMATORY TESTING FOR [...] Methadone Screen Negative < 300 ng/mL [facility] RBC Auto (Bld) [#/Vol]Ordere d By: Jose E Meier on 09-28-2023 RBC (Bld) [#/Vol] 5.00 10*6/uL 4.6-6.2 [facility] Serum or plasma calcium jacob urement (mass/volume)Ordered By: Jose E Meier on 09-28-2023 Calcium [Mass/Vol] 8.7 mg/dL 8.5-10.1 [facility] Serum or plasma creatinine m easurement (mass/volume)Ordered By: Jose E Meier on 09-28-2023 Creatinine [Mass/Vol] 1.02 mg/dL 0.70-1.30 [facility] Comment on above: The validity of the calculated GFR & GFRAA in patients over 70 years has not been determined. Clinical correlation is essential. Serum or plasma urea nitroge n measurement (mass/volume)Ordered By: Jose E Meier on 09-28-2023 Urea nitrogen [Mass/Vol] 16 mg/dL 7-18 [facility] Thin prep Papanicolaou smear with manual screeningOrdered By: Jose E Meier on 09-28-2023 Thin prep Papanicolaou smear with manual screening 2 5-15 [facility] Urine phencyclidine (PCP) de tectionOrdered By: Jose E Meier on 09-28-2023 Phencyclidine Ql (U) Negative < 25 ng/mL [facility] ALLIED HEALTHon 01-29-2023 ALLIED HEALTH HNO ID: [id number] Author: RT Latoya(R) Service: Radiology Author Type: Pallet Assembler Type: Allied Health Filed: 01/29/2023 1:10 PM [...] RT Latoya(R) January 29, 2023 1:10 PM Normal [facility] CBC W Auto Differential pane l (Bld)on 01-29-2023 Basophils (Bld) [#/Vol] 0.03 10*3/uL Normal <0.11 [facility] Comment on above: Order Comment: Speci men Type: BLOOD SPECIMEN Ordering Facility: [facility] Address: [address] [place] [address] Performed By: #### 5 7021-8 #### [facility] CLIA [id number] [address] [place] [address] [place] Basophils/100 WBC (Bld) 0.5 % Normal [facility] Comment on above: Order Comment: Speci men Type: BLOOD SPECIMEN Ordering Facility: [facility] Address: [address] [place] [address] Performed By: #### 5 7021-8 #### [facility] CLIA [id number] [address] [place] [address] [place] Differential cell count method Nom (Bld) Auto Normal [facility] Comment on above: Order Comment: Speci men Type: BLOOD SPECIMEN Ordering Facility: [facility] Address: [address] [address] Performed By: #### 5 7021-8 #### [facility] CLIA [id number] [place] [address] [place] Eosinophils (Bld) [#/Vol] 0.16 10*3/uL Normal <0.46 [facility] Comment on above: Order Comment: Speci men Type: BLOOD SPECIMEN Ordering Facility: [facility] Address: [address] [address] Performed By: #### 5 7021-8 #### [facility] CLIA [id number] [address] [place] [address] [place] Eosinophils/100 WBC (Bld) 2.4 % Normal [facility] Comment on above: Order Comment: Speci men Type: BLOOD SPECIMEN Ordering Facility: [facility] Address: [address] [place] [address] Performed By: #### 5 7021-8 #### [facility] CLIA [id number] [address] [place] [address] [place] Erythrocyte distribution width (RBC) [Ratio] 12.7 % Normal 11.5-15.0 [facility] Comment on above: Order Comment: Speci men Type: BLOOD SPECIMEN Ordering Facility: [facility] Address: [address] [place] [address] Performed By: #### 5 7021-8 #### [facility] CLIA [id number] [address] [place] [address] [place] Hematocrit (Bld) [Volume fraction] 39.3 % Normal 39.0-51.0 [facility] Comment on above: Order Comment: Speci men Type: BLOOD SPECIMEN Ordering Facility: [facility] Address: [address] [place] [address] Performed By: #### 5 7021-8 #### [facility] CLIA [id number] [place] [address] [place] Hemoglobin (Bld) [Mass/Vol] 13.1 g/dL Normal 13.0-17.0 [facility] Comment on above: Order Comment: Speci men Type: BLOOD SPECIMEN Ordering Facility: [facility] Address: [address] [place] [address] Performed By: #### 5 7021-8 #### [facility] CLIA [id number] [place] [address] [place] Immature granulocytes (Bld) [#/Vol] 0.03 10*3/uL Normal <0.10 [facility] Comment on above: Order Comment: Speci men Type: BLOOD SPECIMEN Ordering Facility: [facility] Address: [address] [place] [address] Performed By: #### 5 7021-8 #### [facility] [place] [id number] [address] [place] [address] [place] Immature granulocytes/100 WBC (Bld) 0.5 % Normal [facility] Comment on above: Order Comment: Speci men Type: BLOOD SPECIMEN Ordering Facility: [facility] Address: [address] [place] [address] Performed By: #### 5 7021-8 #### [facility] [place] [id number] [address] [place] [address] [place] Lymphocytes (Bld) [#/Vol] 3.11 10*3/uL Normal 1.00-4.00 [facility] Comment on above: Order Comment: Speci men Type: BLOOD SPECIMEN Ordering Facility: [facility] Address: [address] [place] [address] Performed By: #### 5 7021-8 #### [facility] CLIA [id number] [address] [place] [address] [place] Lymphocytes/100 WBC (Bld) 47.3 % Normal [facility] Comment on above: Order Comment: Speci men Type: BLOOD SPECIMEN Ordering Facility: [facility] Address: [address] [address] Performed By: #### 5 7021-8 #### [facility] CLIA [id number] [address] [place] [address] MCH (RBC) [Entitic mass] 30.0 pg Normal 26.0-34.0 [facility] Comment on above: Order Comment: Speci men Type: BLOOD SPECIMEN Ordering Facility: [facility] Address: [address] [address] Performed By: #### 5 7021-8 #### [facility] CLIA [id number] [address] [place] [address] [place] MCHC (RBC) [Mass/Vol] 33.3 g/dL Normal 30.5-36.0 [facility] Comment on above: Order Comment: Speci men Type: BLOOD SPECIMEN Ordering Facility: [facility] Address: [address] [address] Performed By: #### 5 7021-8 #### [facility] CLIA [id number] [address] [place] [address] [place] MCV (RBC) [Entitic vol] 90.1 fL Normal 80.0-100.0 [facility] Comment on above: Order Comment: Speci men Type: BLOOD SPECIMEN Ordering Facility: [facility] Address: [address] [address] Performed By: #### 5 7021-8 #### [facility] CLIA [id number] [address] [place] [address] [place] Monocytes (Bld) [#/Vol] 0.65 10*3/uL Normal <0.87 [facility] Comment on above: Order Comment: Speci men Type: BLOOD SPECIMEN Ordering Facility: [facility] Address: [address] [address] Performed By: #### 5 7021-8 #### [facility] CLIA [id number] [address] [place], [place] [id number] [place] Monocytes/100 WBC (Bld) 9.9 % Normal [facility] Comment on above: Order Comment: Speci men Type: BLOOD SPECIMEN Ordering Facility: [facility] Address: [address] [place] [address] Performed By: #### 5 7021-8 #### [facility] CLIA [id number] [place] [address] [place] Neutrophils (Bld) [#/Vol] 2.59 10*3/uL Normal 1.45-7.50 [facility] Comment on above: Order Comment: Speci men Type: BLOOD SPECIMEN Ordering Facility: [facility] Address: [address] [place] [address] Performed By: #### 5 7021-8 #### [facility] CLIA [id number] [address] [place] [address] [place] Neutrophils/100 WBC (Bld) 39.4 % Normal [facility] Comment on above: Order Comment: Speci men Type: BLOOD SPECIMEN Ordering Facility: [facility] Address: [address] [place] [address] Performed By: #### 5 7021-8 #### [facility] CLIA [id number] [address] [place] [address] [place] Nucleated RBC (Bld) [#/Vol] 10*3/uL Normal <0.01 [facility] Comment on above: Order Comment: Speci men Type: BLOOD SPECIMEN Ordering Facility: [facility] Address: [address] [place] [address] Performed By: #### 5 7021-8 #### [facility] CLIA [id number] [address] [place] [address] [place] Nucleated RBC/100 WBC (Bld) [Ratio] 0.0 /100 WBC Normal [facility] Comment on above: Order Comment: Speci men Type: BLOOD SPECIMEN Ordering Facility: [facility] Address: [address] [place] [address] Performed By: #### 5 7021-8 #### [facility] CLIA [id number] [place] [address] [place] Platelet mean volume (Bld) [Entitic vol] 10.9 fL Normal 9.0-12.7 [facility] Comment on above: Order Comment: Speci men Type: BLOOD SPECIMEN Ordering Facility: [facility] Address: [address] [place] [address] Performed By: #### 5 7021-8 #### [facility] CLIA [id number] [place] [address] [place] Platelets (Bld) [#/Vol] 209 10*3/uL Normal 150-400 [facility] Comment on above: Order Comment: Speci men Type: BLOOD SPECIMEN Ordering Facility: [facility] Address: [address] [place] [address] Performed By: #### 5 7021-8 #### [facility] CLIA [id number] [address] [place] [address] [place] RBC (Bld) [#/Vol] 4.36 10*6/uL Normal 4.20-6.00 [facility] Comment on above: Order Comment: Speci men Type: BLOOD SPECIMEN Ordering Facility: [facility] Address: [address] [place] [address] Performed By: #### 5 7021-8 #### [facility] CLIA [id number] [address] [place] [address] [place] WBC (Bld) [#/Vol] 6.57 10*3/uL Normal 3.70-11.00 [facility] Comment on above: Order Comment: Speci men Type: BLOOD SPECIMEN Ordering Facility: [facility] Address: [address] [place] [address] Performed By: #### 5 7021-8 #### [facility] CLIA [id number] [address] [place] [address] [place] Comprehensive metabolic 2000 panelon 01-29-2023 Albumin [Mass/Vol] 3.6 g/dL Low 3.9-4.9 [facility] Comment on above: Order Comment: Speci men Type: BLOOD SPECIMEN Ordering Facility: [facility] Address: [address] [place] [address] Performed By: #### 1 9123-9, [id number], 45027-9 #### [facility] CLIA [id number] [place] [address] [place] ALP [Catalytic activity/Vol] 46 U/L Normal 38-113 [facility] Comment on above: Order Comment: Speci men Type: BLOOD SPECIMEN Ordering Facility: [facility] Address: [address] [place] [address] Performed By: #### 1 9123-9, [id number], 13240-2 #### [facility] CLIA [id number] [address] [place] [address] [place] ALT [Catalytic activity/Vol] 13 U/L Normal 10-54 [facility] Comment on above: Order Comment: Speci men Type: BLOOD SPECIMEN Ordering Facility: [facility] Address: [address] [place] [address] Performed By: #### 1 9123-9, [id number], 79506-2 #### [facility] CLIA [id number] [address] [place] [address] [place] Anion gap [Moles/Vol] 7 mmol/L Low 9-18 [facility] Comment on above: Order Comment: Speci men Type: BLOOD SPECIMEN Ordering Facility: [facility] Address: [address] [place] [address] Performed By: #### 1 9123-9, [id number], 86407-9 #### [facility] CLIA [id number] [place] [address] [place] AST [Catalytic activity/Vol] 16 U/L Normal 14-40 [facility] Comment on above: Order Comment: Speci men Type: BLOOD SPECIMEN Ordering Facility: [facility] Address: [address] Performed By: #### 1 23-9, [id number], #### [facility] CLIA [id number] [address] [place] [address] [place] Bilirubin [Mass/Vol] 0.4 mg/dL Normal 0.2-1.3 [facility] Comment on above: Order Comment: Speci men Type: BLOOD SPECIMEN Ordering Facility: [facility] Address: [address] [address] Performed By: #### 1 23-9, [id number], #### [facility] CLIA [id number] [address] [place] [address] [place] Calcium [Mass/Vol] 8.4 mg/dL Low 8.5-10.2 [facility] Comment on above: Order Comment: Speci men Type: BLOOD SPECIMEN Ordering Facility: [facility] Address: [address] [address] Performed By: #### 1 23-9, [id number], #### [facility] CLIA [id number] [address] [place] [address] [place] Chloride [Moles/Vol] 108 mmol/L High 97-105 [facility] Comment on above: Order Comment: Speci men Type: BLOOD SPECIMEN Ordering Facility: [facility] Address: [address] Performed By: #### 1 23-9, [id number], #### [facility] CLIA [id number] [address] [place] [address] [place] CO2 [Moles/Vol] 26 mmol/L Normal 22-30 [facility] Comment on above: Order Comment: Speci men Type: BLOOD SPECIMEN Ordering Facility: [facility] Address: [address] Performed By: #### 1 9123-9, [id number], #### [facility] CLIA [id number] [place] [address] [place] Creatinine [Mass/Vol] 1.14 mg/dL Normal 0.73-1.22 [facility] Comment on above: Order Comment: Cristela ness Type: BLOOD SPECIMEN Ordering Facility: [facility] Address: [address] [place] [address] Performed By: #### 1 9123-9, [id number], 38626-2 #### [facility] CLIA [id number] [place] [address] [place] ESTIMATED GLOMERULAR FILTRATION RATE 87 mL/min/1.73m??? Normal >=60 [facility] Comment on above: Order Comment: Cristela ness Type: BLOOD SPECIMEN Ordering Facility: [facility] Address: [address] [place] [address] Result Comment: Cathy mated Glomerular Filtration Rate [...] actual GFR. Performed By: #### 1 9123-9, [id number], 11931-4 #### [facility] CLIA [id number] [address] [place] [address] [place] Glucose [Mass/Vol] 115 mg/dL High 74-99 [facility] Comment on above: Order Comment: Cristela ness Type: BLOOD SPECIMEN Ordering Facility: [facility] Address: [address] [place] [address] Result Comment: The [place] [employer] Association (ADA) provides guidance for cutoff [...] Standards of Medical Care in Diabetes 2016, [place] [employer]. Diabetes Care. 2016.39(Suppl 1). Performed By: #### 1 9123-9, [id number], #### [facility] CLIA [id number] [address] [place] [address] [place] Potassium [Moles/Vol] 4.1 mmol/L Normal 3.7-5.1 [facility] Comment on above: Order Comment: Speci men Type: BLOOD SPECIMEN Ordering Facility: [facility] Address: [address] [address] Performed By: #### 1 9123-9, [id number], #### [facility] CLIA [id number] [address] [place] [address] [place] Protein [Mass/Vol] 5.5 g/dL Low 6.3-8.0 [facility] Comment on above: Order Comment: Speci men Type: BLOOD SPECIMEN Ordering Facility: [facility] Address: [address] [place] [address] Performed By: #### 1 23-9, [id number], #### [facility] CLIA [id number] [address] [place] [address] [place] Sodium [Moles/Vol] 141 mmol/L Normal 136-144 [facility] Comment on above: Order Comment: Speci men Type: BLOOD SPECIMEN Ordering Facility: [facility] Address: [address] [place] [address] Performed By: #### 1 23-9, [id number], #### [facility] CLIA [id number] [address] [place] [address] [place] Urea nitrogen [Mass/Vol] 12 mg/dL Normal 9-24 [facility] Comment on above: Order Comment: Speci men Type: BLOOD SPECIMEN Ordering Facility: [facility] Address: [address] [place] [phone] Performed By: #### 1 9123-9, [id number], 13753-5 #### [facility] [place] [id number] [address] [place] [address] STATES OF [facility] ECG COMPLETEon 01-29-2023 ECG COMPLETE Ventricular Rate : 7 8 BPM Atrial Rate : 78 BPM P-R Interval : 160 ms QRS Duration : 122 ms Q-T Interval : 374 ms QTC Calculation(Bazett) : 426 ms Calculated P Baxter : 64 degrees Calculated R Baxter : 82 degrees Calculated T Baxter : 49 degrees Sinus rhythm IVCD, consider atypical RBBB ST elevation suggests acute pericarditis Abnormal ECG no stemi Confirmed by ERIK DAVIS MD ([id number]), city editor SUZI BRUNO ([id number]) on 01/30/2023 10:18:17 AM NAME : GABRIELA VIDAL PID : [id number] : 1990 Gender : Male Race : ORD : [id number] Procedure Date : Jan 29 2023 12:34:12 Edit Date : Jan 30 2023 10:18:21 Diagnosis: Sinus rhythm IVCD, consider atypical RBBB ST elevation suggests acute pericarditis Abnormal ECG no stemi Confirmed by ERIK DAVIS MD ([id number]), city editor SUZI BRUNO ([id number]) on 01/30/2023 10:18:17 AM Test Reason : Chest Pain Location : 18 : ED [id number] Overread By : ERIK DAVIS MD Edited By : SUZI BRUNO Referred By : , Acquired by : , [facility] ED NOTEon 01-29-2023 ED NOTE HNO ID: [id number] Author: Juliana Aguilera, ANDRES Service: Nursing Author Type: Registered Nurse Type: [...] with steady gait on departure. [facility] ED NOTE HNO ID: [id number] Author: Juliana Aguilera RN Service: Nursing Author [...] in locked and low position [facility] ED NOTE HNO ID: [id number] Author: Anabel Hernandez RN Service: ? Author Type: Registered Nurse Type: ED Notes Filed: 01/29/2023 12:23 PM Note Text: Bed: ED-13 Expected date: Expected time: Means of arrival: Comments: EMS [facility] ED PROV NOTEon 01-29-2023 ED PROV NOTE HNO ID: [id number] Author: Erik Davis MD Service: Emergency Medicine [...] nursing note reviewed. Exam conducted with a rating officer present. Constitutional: General: He is not in [...] intact. Motor: Motor function is intact. Coordination: Cratyx-Feln-Nthlpk Test normal. Gait: Gait is intact. Psychiatric: [...] Final Result IMPRESSION: No acute radiographic abnormality. Lehr Tender: PSCB Transcribe Date/Time: Jan 29 2023 1:19P Dictated by : DEVEN CHAPMAN MD This examination was interpreted and the report reviewed and electronically signed by: DEVEN CHAPMAN MD on Jan 29 2023 1:20PM EST Procedures ED Course / Clinical Impression ED Course as of 01/29/23 1534 Erik Davis's Documentation Mon Jan 29, 2023 1248 EKG Interpretation: RHYTHM: Normal sinus rhythm at 78 beats per minute AXIS: Normal axis INTERVALS: Normal [place] interval QRS COMPLEX: Normal ST SE (more content not included)... Normal [facility] HIGH SENSITIVITY TROPONIN T (INITIAL)on 01-29-2023 HIGH SENSITIVITY SHEBA 7 ng/L Normal <12 [facility] Comment on above: Order Comment: Speci men Type: BLOOD SPECIMENOrdering Facility: [facility] Address: [address] [place] [phone] Result Comment: When assessing risk for acute [...] day MACE. Performed By: #### 1 9123-9, [id number], 24061-9 ####[facility] [id number] [address] [id number] [place] HIGH SENSITIVITY TROPONIN T (SECOND)on 01-29-2023 HIGH SENSITIVITY SHEBA <6 Normal <12 [facility] Comment on above: Order Comment: Cristela ness Type: BLOOD SPECIMEN Ordering Facility: [facility] Address: [address] [place] [address] Result Comment: When assessing risk for acute [...] 30 day MACE. Performed By: #### L [id number] #### [facility] CLIA [id number] [place] [address] [place] Magnesium SerPl-mCncon 01-29 Magnesium [Mass/Vol] 1.9 mg/dL Normal 1.7-2.3 [facility] Comment on above: Order Comment: Cristela ness Type: BLOOD SPECIMENOrdering Facility: [facility] Address: [address] [place] [address] Performed By: #### 1 9123-9, [id number], 26093-2 ####[facility] [id number] [place] [address] [place] No Panel Informationon 01-29 IMPRESSION: Mild acromioclavicular degenerative changes. Lehr Tender: YAIMA Transcribe Date/Time: Jan 29 2023 2:37P Dictated by : BROOK NELSON MD This examination was interpreted and the report reviewed and electronically signed by: BROOK NELSON MD on Guillermo 3 2023 2:38PM EST DIVISION OF RADIOLOGY Radiology Study observation (narrative) [facility] No Panel InformationOrdered By: Ccf Provider on 01-29-2023 [facility] XR CHEST 2V FRONTAL/LATon XR CHEST [...] tissues: Unremarkable. IMPRESSION: No acute radiographic abnormality. Lehr Tender: PSCB Transcribe Date/Time: Jan 29 2023 1:19P Dictated by : DEVEN CHAPMAN MD This examination was interpreted and the report reviewed and electronically signed by: DEVEN CHAPMAN MD on Jan 29 2023 1:20PM EST [id number] [facility] XR SHLDR >/=3V AP/ALESSANDRO AP/OTH R [...] >/=3V AP/ALESSANDRO AP/OTHR LT Laterality: RIGHT (accession [id number]), LEFT (accession [id number]) Number of different views (projections): 3 M: XB_1 COMPARISON: RESULT: Mild acromioclavicular degenerative changes bilaterally. Maintained glenohumeral joints bilaterally. Imaged lungs appear to be clear. No acute fracture or dislocation. There are no bony erosions. IMPRESSION: Mild acromioclavicular degenerative changes. Lehr Tender: [facility] Transcribe Date/Time: Jan 29 2023 2:37P Dictated by : BROOK NELSON MD This examination was interpreted and the report reviewed and electronically signed by: BROOK NELSON MD on Jan 29 2023 2:38PM EST [id number] Normal [facility] XR SHLDR >/=3V AP/ALESSANDRO AP/OTH R RTon [...] >/=3V AP/ALESSANDRO AP/OTHR LT Laterality: RIGHT (accession [id number]), LEFT (accession [id number]) Number of different views (projections): 3 M: XB_1 COMPARISON: RESULT: Mild acromioclavicular degenerative changes bilaterally. Maintained glenohumeral joints bilaterally. Imaged lungs appear to be clear. No acute fracture or dislocation. There are no bony erosions. IMPRESSION: Mild acromioclavicular degenerative changes. Lehr Tender: [facility] Transcribe Date/Time: Jan 29 2023 2:37P Dictated by : BROOK NELSON MD This examination was interpreted and the report reviewed and electronically signed by: BROOK NELSON MD on Jan 29 2023 2:38PM EST [id number] Normal [facility] XR Shoulder - left 3 Viewson 01-29-2023 [...] >/=3V AP/ALESSANDRO AP/OTHR LT Laterality: RIGHT (accession [id number]), LEFT (accession [id number]) Number of different views (projections): 3 M: XB_1 COMPARISON: RESULT: Mild acromioclavicular degenerative changes bilaterally. Maintained glenohumeral joints bilaterally. Imaged lungs appear to be clear. No acute fracture or dislocation. There are no bony erosions. DIVISION OF RADIOLOGY Provider, [facility] - 01/29/2023 * * *Final Report* * [...] >/=3V AP/ALESSANDRO AP/OTHR LT Laterality: RIGHT (accession [id number]), LEFT (accession [id number]) Number of different views (projections): 3 M: XB_1 COMPARISON: RESULT: Mild acromioclavicular degenerative changes bilaterally. Maintained glenohumeral joints bilaterally. Imaged lungs appear to be clear. No acute fracture or dislocation. There are no bony erosions. IMPRESSION IMPRESSION: Mild acromioclavicular degenerative changes. Lehr Tender: PSCB Transcribe Date/Time: Jan 29 2023 2:37P Dictated by : BROOK NELSON MD This examination was interpreted and the report reviewed and electronically signed by: BROOK NELSON MD on Jan 29 2023 2:38PM EST [facility] XR Shoulder - right 3 Viewso [...] >/=3V AP/ALESSANDRO AP/OTHR LT Laterality: RIGHT (accession [id number]), LEFT (accession [id number]) Number of different views (projections): 3 M: XB_1 COMPARISON: RESULT: Mild acromioclavicular degenerative changes bilaterally. Maintained glenohumeral joints bilaterally. Imaged lungs appear to be clear. No acute fracture or dislocation. There are no bony erosions. DIVISION OF RADIOLOGY Provider, [facility] - 01/29/2023 * * *Final Report* * [...] >/=3V AP/ALESSANDRO AP/OTHR LT Laterality: RIGHT (accession [id number]), LEFT (accession [id number]) Number of different views (projections): 3 M: XB_1 COMPARISON: RESULT: Mild acromioclavicular degenerative changes bilaterally. Maintained glenohumeral joints bilaterally. Imaged lungs appear to be clear. No acute fracture or dislocation. There are no bony erosions. IMPRESSION IMPRESSION: Mild acromioclavicular degenerative changes. Lehr Tender: PSCB Transcribe Date/Time: Jan 29 2023 2:37P Dictated by : BROOK NELSON MD This examination was interpreted and the report reviewed and electronically signed by: BROOK NELSON MD on Jan 29 2023 2:38PM EST [facility] UA DIP, URINE (POC)on 2022 BILIRUBIN UA (POCT) Negative Negative [facility] CLARITY UA (POCT) Clear [facility] COLOR UA (POCT) Yellow [facility] GLUCOSE UA (POCT) Negative Negative mg/dL [facility] HEMOGLOBIN/BLOOD UA (POCT) Negative Negative [facility] KETONE UA (POCT) Negative Negative mg/dL [facility] LEUKOCYTES UA (POCT) Negative Negative [facility] NITRITE UA (POCT) Negative Negative [facility] PH UA (POCT) 5.5 4.5 - 8.0 [facility] Protein Ql (U) Negative Negative mg/dL [facility] SPECIFIC GRAVITY UA (POCT) >=1.030 1.005 - 1.030 [facility] UROBILINOGEN UA (POCT) 0.2 E.U./dL Skyla l E.U./dL [facility] Provider Note - ED v3on 11-27 [...] by speech recognition technology. Minor errors in anodic treater may be present. HISTORY OF PRESENTING ILLNESS [...] Review Statu (more content not included)... Normal [facility] Triage - EDon 2022 Triage - ED Chart Review: ARRIVAL INFORMATION Mode of Arrival: ambulance Agency Name: [place] CHIEF COMPLAINT GABRIELA VIDAL is a Male [...] BMI (kg/m2): 25.839 Calculated BSA (m2) 2.05 [place] Coma Scale: Best Eye Response: (E4) spontaneous Best Motor Response: (M6) obeys commands Best Verbal Response: (V5) oriented Neha Score: 15 Cough lasting greater than 3 [...] Past Medical History Reviewedyes Electronic Signatures: Dina Wood) (Signed 11-Dec-2022 21:00) Authored: Quick Triage, Risk Screens, Pain, Travel History, Chart Review, Scores, Past Medical History Last Updated: 11-Dec-2022 21:00 by Dina Wood (RN PRN) [facility] ED NOTEon 01-03-2022 ED NOTE HNO ID: [id number] Author: Darcie Gary RN Service: Nursing Author [...] Pt ambulated off ED in no distress. [facility] ED NOTE HNO ID: [id number] Author: Nuvia George RN Service: ? Author Type: Registered Nurse Type: ED Notes Filed: 01/03/2022 11:51 AM Note Text: Pt presents to the ED with CC of a known dental infection for the past 2 years that has turned into an abscess, pt went to [place] yesterday where they attempted to drain the abscess and started him on oral antibiotics, pt now reports swelling is worse and to the point of his eye swelling shut [facility] ED PROV NOTEon 01-03-2022 ED PROV NOTE HNO ID: [id number] Author: Aysha Poole MD Service: ? Author [...] swelling 2 days ago. He went to [place] emergency department was placed on amoxicillin. He [...] alert and (more content not included)... Normal [facility] XR SHOULDER 2V AP/TRUE AP RT on [...] otherwise maintained. No acute fracture or dislocation. Lehr Tender: YAIMA Transcribe Date/Time: Sep 09 2020 9:58A Dictated by : XAVI OLIVER MD This examination was interpreted and the report reviewed and electronically signed by: XAVI OLIVER MD on Sep 09 2020 10:09AM EST Normal [facility] CT CHEST WO IVCONon 08-02-19 CT CHEST WO IVCON Final Report DATE OF EXAM: Aug 02 2020 5:04PM [facility] 0541 - CT CHEST WO IVCON / [...] abnormality identified in the imaged upper abdomen. Metalsmith Apprentice (topogram) images: No additional findings. IMPRESSION: Interval resolution of right lower lobe consolidation/pneumonia . No acute findings in the chest. Lehr Tender: YAIMA Transcribe Date/Time: Aug 02 2020 6:06P Dictated by : LACI MENDOZA MD This examination was interpreted and the report reviewed and electronically signed by: LACI MENDOZA MD on Aug 02 2020 6:17PM EST Normal [facility] XR CHEST 2V FRONTAL/LATon XR CHEST 2V [...] to ensure resolution and exclude a neoplasm. Lehr Tender: YAIMA Transcribe Date/Time: May 17 2020 5:34P Dictated by : JUAN AYERS MD This examination was interpreted and the report reviewed and electronically signed by: JUAN AYERS MD on May 17 2020 5:35PM EST Normal [facility] T. Vaginalis Amplificationon 02-10-2020 T. Vaginalis Amplification SEE BELOW Normal [facility] Comment on above: Result Comment: Tric h vag Amp Source Urine Corrected on 02/08 AT 1722: Previously reported as URINE T vag Amplification SEE BELOW Negative for Trichomonas vaginalis by amplification This test was developed and its performance characteristics determined by [facility]'s Gabriela Esteban [facility] [place] ( [facility]). It has not been cleared or approved by the FDA. [facility] is regulated under CLIA as qualified to perform high complexity testing. This test is used for clinical purposes. It should not be regarded as investigational or for research. Performing Laboratory: [facility] [address] [place] [address] Performed By: #### T RVAX #### [facility] [address] [place], [place] [address] GC/Chlam Urine Ampon 020 CT Amplification, Ur CT neg Normal [facility] Comment on above: Result Comment: Nega tive for Chlamydia trachomatis by amplification. Performed By: #### G CTUP #### [facility] [address] [place], [place] [address] GC Amplification, Ur GC neg Normal [facility] Comment on above: Result Comment: Nega tive for Neisseria gonorrhoeae by amplification. Performed By: #### G CTUP #### [facility] [address] [place], [place] [address] GC/Chlam Urine Ampon 020 GC/Chlam Urine Amp Source Urine Normal [facility] Comment on above: Performed By: #### G CTUP #### [facility] [address] [place], [place] [address] XR LUMBAR 3V AP/LAT/L5-S1on 02-02-2020 XR LUMBAR [...] are seen. IMPRESSION: No acute traumatic abnormality Lehr Tender: YAIMA Transcribe Date/Time: Feb 02 2020 1:49P Dictated by : LINDA RAMÍREZ MD This examination was interpreted and the report reviewed and electronically signed by: LINDA RAMÍREZ MD on Feb 02 2020 1:54PM EST Normal [facility] Chlamydia and GC PCR Panelon 02-09-2018 Chlamydia [...] as suspected child abuse or molestation. Normal [facility] Comment on above: Order Comment: Speci men Source Comment:Urine voided Performed By: #### C TNGP ####[facility] [address] [place] [address] CR Abdomen Series w/ Chest 1 Viewon 02-08-2018 CR Abdomen Series w/ Chest 1 View Patient Name: GABRIELA VIDAL Jr Diagnostic Radiology Exam Date/Time 02/08/2018 11:55:40 EDT Exam CR Abdomen Series w/ Chest 1 View Ordering Physician DO GONCALVES KIMBERLY D. Accession Number [id number] CPT4 Codes 38020 () Reason For Exam abdominal pain and [...] Transcribed Date and Time: 02/08/2018 1:03 Normal [facility] Comp Metabolic Panelon 02-08 Calcium 9.2 mg/dL Normal 8.4-10.4 [facility] Comment on above: Performed By: #### H YOLANDA CMP3 ####[address] [place] [address] Alanine aminotransferase (ALT) 19 U/L Normal 13-69 [facility] Comment on above: Performed By: #### H YOLANDA CMP3 ####[address] [place] [address] Alkaline phosphatase (ALP) 45 U/L Normal 38-126 [facility] Comment on above: Performed By: #### H YOLANDA CMP3 ####[address] [place] [address] Anion gap 9 Normal [facility] Comment on above: Performed By: #### H YOLANDA CMP3 ####[address] [place] [address] Aspartate aminotransferase (AST) 22 U/L Normal 15-46 [facility] Comment on above: Performed By: #### H YOLANDA CMP3 ####[address] [place] [address] Bilirubin (total) 0.5 mg/dL Normal 0.2-1.3 [facility] Comment on above: Performed By: #### H YOLANDA CMP3 ####[address] [place] [address] CO2 28 mmol/L Normal 22-30 [facility] Comment on above: Performed By: #### H YOLANDA CMP3 ####[address] [place] [address] Creatinine 1.19 mg/dL Normal 0.52-1.25 [facility] Comment on above: Performed By: #### H YOLANDA CMP3 ####[place] [id number] [place] [address] eGFR (black) mL/min/{1.73_m2} Normal >60 [facility] Comment on above: Performed By: #### H YOLANDA CMP3 ####[place] [id number] [place] [address] eGFR (non-black) mL/min/{1.73_m2} Normal >60 [facility] Comment on above: Result Comment: Sour ce- MDRD equation with creatinine calibration to IDMS(NKDEP) eGFR not recommended for drug dose adjustment Performed By: #### H YOLANDA CMP3 ####[address] [place] [address] Glucose mass conc 98 mg/dL Normal 70-100 [facility] Comment on above: Performed By: #### H YOLANDA CMP3 ####[address] [place] [address] Protein 6.9 g/dL Normal 6.3-8.2 [facility] Comment on above: Performed By: #### H YOLANDA CMP3 ####[place] [id number] [place] [address] Urea nitrogen 10 mg/dL Normal 7-20 [facility] Comment on above: Performed By: #### H YOLANDA CMP3 ####[address] [place] [address] Potassium molar conc 4.2 mmol/L Normal 3.5-5.1 [facility] Comment on above: Performed By: #### H YOLANDA CMP3 ####[place] [id number] [place] [address] Albumin 4.2 g/dL Normal 3.5-5.0 [facility] Comment on above: Performed By: #### H YOLANDA CMP3 ####[address] [place] [address] Chloride 106 mmol/L Normal 98-107 [facility] Comment on above: Performed By: #### H YOLANDA CMP3 ####[address] [address] Sodium 144 mmol/L Normal 137-145 [facility] Comment on above: Performed By: #### H YOLANDA CMP3 ####[address] [address] Hemogram w/ Autodiffon 02-08 Abs Baso Cnt 0.0 10*3/uL Normal 0.0-0.2 [facility] Comment on above: Performed By: #### H YOLANDA CMP3 ####[address] [address] Abs Neutrophile Cnt 4.4 10*3/uL Normal 1.8-7.0 [facility] Comment on above: Performed By: #### H YOLANDA CMP3 ####[address] [address] Basophils/100 WBC Auto (Bld) 0.5 % Normal 0.0-2.0 [facility] Comment on above: Performed By: #### H YOLANDA CMP3 ####[address] [address] Eosinophils 0.2 10*3/uL Normal 0.0-0.5 [facility] Comment on above: Performed By: #### H YOLANDA CMP3 ####[address] [address] Eosinophils/100 leukocytes 2.5 % Normal 1.0-6.0 [facility] Comment on above: Performed By: #### H YOLANDA CMP3 ####[address] [address] Erythrocyte distribution width Auto Ratio (RBC) 13.0 % Normal 11.5-14.5 [facility] Comment on above: Performed By: #### H YOLANDA CMP3 ####[address] [id number] Erythrocytes (RBC) 5.31 10*6/uL Normal 4.40-5.90 [facility] Comment on above: Performed By: #### H YOLANDA CMP3 ####[address] [address] Granulocytes/100 WBC (Bld) 54.6 % Normal 40.0-80.0 [facility] Comment on above: Performed By: #### H YOLANDA CMP3 ####[id number] [place] [address] Hematocrit (HCT) 48.8 % Normal 40.0-52.0 [facility] Comment on above: Performed By: #### H EMDHafsa CMP3 ####[id number] [place] [address] Hemoglobin mass conc (Bld) 16.7 g/dL Normal 13.0-18.0 [facility] Comment on above: Performed By: #### H YOLANDA CMP3 ####[id number] [place] [address] Lymphocytes 2.6 10*3/uL Normal 1.0-4.3 [facility] Comment on above: Performed By: #### H EMDHafsa CMP3 ####[address] [place] [address] Lymphocytes/100 leukocytes 32.5 % Normal 20.0-40.0 [facility] Comment on above: Performed By: #### H YOLANDA CMP3 ####[address] [place] [address] MCH 31.4 pg Normal 26.0-34.0 [facility] Comment on above: Performed By: #### H EMDHafsa CMP3 ####[address] [place] [address] MCHC mass conc (RBC) 34.2 % Normal 32.0-36.0 [facility] Comment on above: Performed By: #### H YOLANDA CMP3 ####[address] [place] [address] MCV 91.8 fL Normal 80.0-98.0 [facility] Comment on above: Performed By: #### H EMDHafsa CMP3 ####[id number] [place] [address] Monocytes 0.8 10*3/uL Normal 0.0-0.8 [facility] Comment on above: Performed By: #### H YOLANDA CMP3 ####[id number] [place] [address] Monocytes/100 leukocytes 9.9 % Normal 2.0-10.0 [facility] Comment on above: Performed By: #### H YOLANDA CMP3 ####[id number] [facility] [place] [address] Platelet mean volume (PMV) 10.2 fL Normal 7.4-10.4 [facility] Comment on above: Performed By: #### H YOLANDA CMP3 ####[id number] [facility] [place] [address] Platelets 195 10*3/uL Normal 140-440 [facility] Comment on above: Performed By: #### H YOLANDA CMP3 ####[id number] [facility] [place] [address] WBC (Leukocytes) 8.0 10*3/uL Normal 3.6-10.7 [facility] Comment on above: Performed By: #### H YOLANDA CMP3 ####[address] [place] [address] Urinalysis,Macroon 8 Appearance Clear Normal Clear [facility] Comment on above: Performed By: #### U AMAC, UAMIC ####[address] [place] [address] Bilirubin,Ur 1 + Normal Negative [facility] Comment on above: Performed By: #### U AMAC, UAMIC ####[address] [place] [address] Color Yellow Normal Lt. Yellow [facility] Comment on above: Performed By: #### U AMAC, UAMIC ####[id number] [facility] [place] [address] Ketone,Urine Negative Normal Negative [facility] Comment on above: Performed By: #### U AMAC, UAMIC ####[id number] [facility] [place] [address] Leukocytes Negative Normal Negative [facility] Comment on above: Performed By: #### U AMAC, UAMIC ####[address] [place] [address] Nitrites Negative Normal Negative [facility] Comment on above: Performed By: #### U AMAC, UAMIC ####[address] [place] [address] Occult Blood,Ur Negative Normal Negative [facility] Comment on above: Performed By: #### U AMAC, UAMIC ####[id number] [facility] [place] [address] Specific [place],Urine 1.020 Normal 1.005-1.030 [facility] Comment on above: Performed By: #### U AMAC, UAMIC ####[address] [place] [address] Total Protein,Urine Negative Normal Negative [facility] Comment on above: Performed By: #### U AMAC, UAMIC ####[address] [place] [address] Urine, glucose presence NEG (Normal) Normal Negative [facility] Comment on above: Performed By: #### U AMAC, UAMIC ####[address] [place] [address] Urine, pH 6.5 Normal 5.0-8.0 [facility] Comment on above: Performed By: #### U AMAC, UAMIC ####[address] [place] [address] Urobilinogen Normal (0.2) Normal 0-1 [facility] Comment on above: Performed By: #### U AMAC, UAMIC ####[address] [place] [address] Urinalysis,Microscopicon Amorphous Urates Moderate (6-50) Normal Negative [facility] Comment on above: Performed By: #### U AMAC, UAMIC ####[address] [place] [address] Bacteria Few (1-5) Normal Negative [facility] Comment on above: Performed By: #### U AMAC, UAMIC ####[address] [place] [address] Ca Oxylate Crystals Few (1-5) Normal Negative [facility] Comment on above: Performed By: #### U AMAC, UAMIC ####[address] [place] [address] Epithelial Cells Negative Normal 3-5 [facility] Comment on above: Performed By: #### U AMAC, UAMIC ####[facility] [id number] [facility] [place] [address] Urine, erythrocytes in sediment by area Negative Normal 0-2 [facility] Comment on above: Performed By: #### U AMAC, UAMIC ####[facility] [id number] [place] [address] Urine, leukocytes in sedmiment 0 - 2 Normal 0-5 [facility] KochAbo Comment on above: Performed By: #### U AMAC, UAMIC ####[facility] [id number] [facility] [place] [address] Volume,Urine 12 ml Normal [facility] Comment on above: Performed By: #### U AMAC, UAMIC ####[facility] [id number] [facility] [place] [address] Vital Signs Date Time Vital Sign Value Performing Clinician Facility 01-21-2025 21:53-0400 Body temperature 100 [degF] Shania Queden [employer]C Work Phone: [facility] 01-21-2025 21:53-0400 Diastolic blood pressure 83 mm[Hg] Shania Queden [employer]APPER ANIMAL-C Work Phone: [facility] 01-21-2025 21:53-0400 Heart rate 118 /min Shania Queden [employer]PER [employer]AL-C Work Phone: [facility] 01-21-2025 21:53-0400 Respiratory rate 18 /min Shania Queden [employer]-C Work Phone: [facility] 01-21-2025 21:53-0400 SaO2% (BldA) [Mass fraction] 100 % Shania Queden [employer]-C Work Phone: [facility] 01-21-2025 21:53-0400 Systolic blood pressure 130 mm[Hg] Shania Queden [employer]-C Work Phone: [facility] 01-21-2025 16:05-0400 Body height 175.26 cm Shania Queden [employer]-C Work Phone: [facility] 01-21-2025 16:05-0400 Body mass index (BMI) [Ratio] 27 kg/m2 Shania Queden [employer]-C Work Phone: [facility] 01-21-2025 16:05-0400 Body weight 83 kg Shania Queden [employer]PER [employer]AL-C Work Phone: [facility] 01-07-2025 09:57-0400 Body temperature 97.3 [degF] Shania Queden [employer]-C Work Phone: [facility] 01-07-2025 09:57-0400 Diastolic blood pressure 99 mm[Hg] Shania Queden [employer]PER AN[employer]AL-C Work Phone: [facility] 01-07-2025 09:57-0400 Heart rate 90 /min Shania Queden [employer]PER AN[employer]AL-C Work Phone: [facility] 01-07-2025 09:57-0400 Respiratory rate 16 /min Shania Queden [employer]PER AN[employer]AL-C Work Phone: [facility] 01-07-2025 09:57-0400 SaO2% (BldA) [Mass fraction] 99 % Shania Queden [employer]PER [employer]AL-C Work Phone: [facility] 01-07-2025 09:57-0400 Systolic blood pressure 101 mm[Hg] Shania Queden [employer]PER [employer]-C Work Phone: [facility] 01-07-2025 08:42-0400 Body height 175.26 cm Shania Queden [employer]PER [employer]AL-C Work Phone: [facility] 01-07-2025 08:42-0400 Body mass index (BMI) [Ratio] 27.1 kg/m2 Shania Queden [employer]C Work Phone: [facility] 01-07-2025 08:42-0400 Body weight 83.41 kg Shania Queden [employer]-C Work Phone: [facility] 01-15-2024 14:37-0400 Body height 177.8 cm Shania Queden CARDIAC NURSE PRACTITIONER.NUTRITIONAL SERVICES HOST Work Phone: [facility] 01-15-2024 14:37-0400 Body mass index (BMI) [Ratio] 24.54 kg/m2 Shania Queden CARDIAC NURSE PRACTITIONER.NUTRITIONAL SERVICES HOST Work Phone: [facility] 01-15-2024 14:37-0400 Body temperature 97.9 [degF] Sahnia Queden CARDIAC NURSE PRACTITIONER.NUTRITIONAL SERVICES HOST Work Phone: [facility] 01-15-2024 14:37-0400 Body weight 77.56 kg Shania Queden CARDIAC NURSE PRACTITIONER.NUTRITIONAL SERVICES HOST Work Phone: [facility] 01-15-2024 14:37-0400 Diastolic blood pressure 62 mm[Hg] Shania Queden CARDIAC NURSE PRACTITIONER.NUTRITIONAL SERVICES HOST Work Phone: [facility] 01-15-2024 14:37-0400 Heart rate 98 /min Shania Queden CARDIAC NURSE PRACTITIONER.NUTRITIONAL SERVICES HOST Work Phone: [facility] 01-15-2024 14:37-0400 Respiratory rate 18 /min Shania Queden CARDIAC NURSE PRACTITIONER.NUTRITIONAL SERVICES HOST Work Phone: [facility] 01-15-2024 14:37-0400 SaO2% (BldA) [Mass fraction] 99 % Shania Queden CARDIAC NURSE PRACTITIONER.NUTRITIONAL SERVICES HOST Work Phone: [facility] 01-15-2024 14:37-0400 Systolic blood pressure 122 mm[Hg] Shania Queden CARDIAC NURSE PRACTITIONER.NUTRITIONAL SERVICES HOST Work Phone: [facility] 09-29-2023 06:49-0500 Body temperature 97.8 [degF] [facility] 09-29-2023 06:49-0500 Diastolic blood pressure 72 mm[Hg] [facility] 09-29-2023 06:49-0500 Heart rate 71 /min [facility] 09-29-2023 06:49-0500 Respiratory rate 16 /min [facility] 09-29-2023 06:49-0500 SaO2% (BldA) [Mass fraction] 98 % [facility] 09-29-2023 06:49-0500 Systolic blood pressure 122 mm[Hg] [facility] 09-28-2023 17:12-0500 Body height 177.8 cm [facility] 09-28-2023 17:12-0500 Body mass index (BMI) [Ratio] 26.5 kg/m2 [facility] 09-28-2023 17:12-0500 Body weight 83.91 kg [facility] 04-09-2023 10:29-0400 Body height 177.8 cm Gilda Zavala APRN.NUTRITIONAL SERVICES HOST Work Phone: [facility] 04-09-2023 10:29-0400 Body temperature 97.81 [degF] Gilda Zavala CARDIAC NURSE PRACTITIONER.NUTRITIONAL SERVICES HOST Work Phone: [facility] 04-09-2023 10:29-0400 Body weight 82.1 kg Gilda Zavala APRN.NUTRITIONAL SERVICES HOST Work Phone: [facility] 04-09-2023 10:29-0400 Diastolic blood pressure 76 mm[Hg] Gilda Zavala APRN.NUTRITIONAL SERVICES HOST Work Phone: [facility] 04-09-2023 10:29-0400 Heart rate 92 /min Gilda Zavala APRN.NUTRITIONAL SERVICES HOST Work Phone: [facility] 04-09-2023 10:29-0400 SaO2% (BldA) [Mass fraction] 93 % Gilda Zavala APRN.NUTRITIONAL SERVICES HOST Work Phone: [facility] 04-09-2023 10:29-0400 Systolic blood pressure 120 mm[Hg] Gilda Zavala APRN.NUTRITIONAL SERVICES HOST Work Phone: [facility] 12-29-2022 16:55-0400 Body height 177.8 cm Shania Vieira CARDIAC NURSE PRACTITIONER.NUTRITIONAL SERVICES HOST Work Phone: [facility] 12-29-2022 16:55-0400 Body temperature 97.9 [degF] Shania Vieira CARDIAC NURSE PRACTITIONER.NUTRITIONAL SERVICES HOST Work Phone: [facility] 12-29-2022 16:55-0400 Body weight 79.83 kg Shania Vieira CARDIAC NURSE PRACTITIONER.NUTRITIONAL SERVICES HOST Work Phone: [facility] 12-29-2022 16:55-0400 Diastolic blood pressure 74 mm[Hg] Shania Butlerden CARDIAC NURSE PRACTITIONER.NUTRITIONAL SERVICES HOST Work Phone: [facility] 12-29-2022 16:55-0400 Heart rate 91 /min Shania Queden CARDIAC NURSE PRACTITIONER.NUTRITIONAL SERVICES HOST Work Phone: [facility] 12-29-2022 16:55-0400 SaO2% (BldA) [Mass fraction] 97 % Shania Queden CARDIAC NURSE PRACTITIONER.NUTRITIONAL SERVICES HOST Work Phone: [facility] 12-29-2022 16:55-0400 Systolic blood pressure 120 mm[Hg] Shania Butlerden CARDIAC NURSE PRACTITIONER.NUTRITIONAL SERVICES HOST Work Phone: [facility] 12-12-2022 00:10-0400 Diastolic blood pressure 77 mm[Hg] No Pcp Required [facility] Other Phone (unformatted): [phone] 12-12-2022 00:10-0400 Heart rate 96 /min No Pcp Required [facility] Other Phone (unformatted): [phone] 12-12-2022 00:10-0400 Respiratory rate 18 /min No Pcp Required [facility] Other Phone (unformatted): [phone] 12-12-2022 00:10-0400 SaO2% (BldA) [Mass fraction] 100 % No Pcp Required [facility] Other Phone (unformatted): [phone] 12-12-2022 00:10-0400 Systolic blood pressure 113 mm[Hg] No Pcp Required [facility] Other Phone (unformatted): [phone] 2022 22:57-0400 Body height 180.3 cm No Pcp Required [facility] Other Phone (unformatted): [phone] 2022 22:57-0400 Body temperature 96.8 [degF] No Pcp Required [facility] Other Phone (unformatted): [phone] 2022 22:57-0400 Body weight 84 kg No Pcp Required [facility] Other Phone (unformatted): [phone] 05-18-2019 15:46-0400 BMI (Body Mass Index) 26.54 kg/m2 [facility] [place] 05-18-2019 15:46-0400 Body Temperature 98.6 [degF] [place], [place] 05-18-2019 15:46-0400 Body weight 83.92 kg [place], [place] 05-18-2019 15:46-0400 BP Diastolic 79 mm[Hg] [place] 05-18-2019 15:46-0400 BP Systolic 118 mm[Hg] [place] 05-18-2019 15:46-0400 Pulse (Heart Rate) 94 /min [place], [place] 05-18-2019 15:46-0400 Pulse Oximetry 99 % [place], [place] 05-18-2019 15:46-0400 Respiratory Rate 20 /min [place], [place] Encounters Encounter Date Encounter Type Care Provider Facility Start: 01-21-2025 Evaluation and manag ement of inpatient Dr. Zechariah Bruno MD -Medical Surgical 3 Work Phone: Start: 01-12-2025 End: 01-12-2025 ambulatory Shania Vieira APRN.CNP Work Phone: [facility] Start: 01-12-2025 End: 01-12-2025 Follow-up encounter Shania Vieira APRN.NUTRITIONAL SERVICES HOST Work Phone: [facility] Comment on above: ED Follow-up ([facility] ED 01/07/2025) Start: 01-07-2025 End: 01-07-2025 Emergency department patient visit Shania Vieira [employer]APPER ANIMAL-C Work Phone: -Emergency Department Work Phone: Start: 04-21-2024 End: 04-23-2024 Patient Outreach Estephania Lemos [facility] Comment on above: Transition Of Care ( Pt was admitted to [place] on 04/18/2024 for ISABELLA, COVID-19. Pt was d/c on 04/19/2024) Start: 04-18-2024 ambulatory Shaniaklaus Vieira TRAPPER ANIMAL Facil ity:[facility] Start: 04-18-2024 End: 04-19-2024 Evaluation and management of inpatient Shania Vieira TRAPPER ANIMAL Facility:[facility] Start: 04-17-2024 End: 04-17-2024 Emergency department patient visit Shania Vieira TRAPPER ANIMAL Facility:[facility] Start: 01-28-2024 Telephone encounter Shania Vieira CARDIAC NURSE PRACTITIONER.NUTRITIONAL SERVICES HOST Work Phone: [facility] Comment on above: Consult Start: 01-15-2024 End: 01-15-2024 Patient encounter procedure Shania Vieira CARDIAC NURSE PRACTITIONER.NUTRITIONAL SERVICES HOST Work Phone: [facility] Comment on above: Schizoaffective diso rder, unspecified type (HCC) (Primary Dx); Adult ADHD; Auditory hallucinations; Acute psychosis (HCC); Marijuana use; Financial difficulties; Acute pain of left shoulder; Living in temporary quarters Start: 12-21-2023 Telephone encounter Shania A Isha CARDIAC NURSE PRACTITIONER.NUTRITIONAL SERVICES HOST Work Phone: [facility] Comment on above: Appointment Start: 12-17-2023 ambulatory Estephania Lemos LPN [facility] Start: 10-02-2023 ambulatory Humera Gillis MA [facility] Comment on above: ed outreach (Ed outr each/09/28/2023/[place] ) Start: 09-28-2023 End: 09-29-2023 Emergency department patient visit [facility]-Emergency Department Work Phone: Start: 07-03-2023 ambulatory Shania Butlerd en CARDIAC NURSE PRACTITIONER.NUTRITIONAL SERVICES HOST Work Phone: [facility] Comment on above: ED Outreach ([place] ED 07/01/23) Start: 05-17-2023 ambulatory Sh[address]e Bustamante MA [facility] Start: 04-11-2023 ambulatory Humera Gillis MA [facility] Comment on above: ED outreach (ED outr each /[place] /04/07/2023 ) Start: 04-09-2023 End: 04-09-2023 Patient encounter procedure Gilda Zavala CARDIAC NURSE PRACTITIONER.NUTRITIONAL SERVICES HOST Work Phone: [facility] Comment on above: Cellulitis of right lower leg (Primary Dx); Itching Start: 01-29-2023 End: 01-29-2023 Emergency department patient visit SHANIAKLAUS BUTLERJOSHUA Facility:[facility] Start: 01-29-2023 End: 01-29-2023 ambulatory SHANIA VIEIRA Facility:[facility] Start: 01-29-2023 End: 01-29-2023 Subsequent hospital visit by physician [facility] Comment on above: Pain [R52] Start: 01-18-2023 Orders Only Humera Hernandez bobby CARDIAC NURSE PRACTITIONER.NUTRITIONAL SERVICES HOST Work Phone: [facility] Comment on above: Pain (Primary Dx) Start: 01-01-2023 Telephone encounter Shania Vieira CARDIAC NURSE PRACTITIONER.NUTRITIONAL SERVICES HOST Work Phone: [facility] Comment on above: Results Start: 12-29-2022 End: 12-29-2022 Patient encounter procedure Shania Macie Isha CARDIAC NURSE PRACTITIONER.NUTRITIONAL SERVICES HOST Work Phone: [facility] Comment on above: Dysuria (Primary Dx) ; Exposure to STD Start: 2022 End: 12-12-2022 Emergency department patient visit Damion Perdue [facility] Other Phone (unformatted): [phone] Start: 08-24-2022 ambulatory Shania Quijano Qued en CARDIAC NURSE PRACTITIONER.NUTRITIONAL SERVICES HOST Work Phone: [facility] Start: 08-24-2022 Follow-up encounter Shania Vieira CARDIAC NURSE PRACTITIONER.NUTRITIONAL SERVICES HOST Work Phone: [facility] Comment on above: ED Follow Up ([place] E D discharge 08/21/2022 ED outreach ) Start: 01-06-2022 ambulatory Shania Quijano Qued en CARDIAC NURSE PRACTITIONER.NUTRITIONAL SERVICES HOST Work Phone: [facility] Start: 05-18-2019 End: 05-18-2019 Emergency department patient visit [facility] Comment on above: Encounter for wound re-check (Primary Dx) Start: 02-08-2018 Emergency department patient visit Torrie Goncalves [facility] Procedures Date Procedure Procedure Detail Performing Clinician Start: 01-21-2025 Computed tomography of abdomen and pelvis with intravenous contrast Shania Vieira [employer]PER AN[employer]AL-C Work Phone: Start: 01-21-2025 Estimated creatinine clearance Shania Vieira [employer]APPER ANIMAL-C Work Phone: Start: 01-21-2025 Urnls dip stick/tabl et reagent auto microscopy Shania Vieira [employer]APPER ANIMAL-C Work Phone: Start: 09-28-2023 Coronavirus COVID-19 PCR Start: 01-29-2023 Radex shoulder compl ete minimum 2 views Humera Martinez Meredith CARDIAC NURSE PRACTITIONER.NUTRITIONAL SERVICES HOST Work Phone: Start: 12-29-2022 Urnls dip stick/tabl et rgnt auto w/o microscopy Shania Vieira CARDIAC NURSE PRACTITIONER.NUTRITIONAL SERVICES HOST Work Phone: Start: 08-24-2020 Adult depression scr eening assessment Shania Vieira CARDIAC NURSE PRACTITIONER.NUTRITIONAL SERVICES HOST Work Phone: Plan of Treatment Date Care Activity Detail Author Start: 07-01-2033 Urine microalbumin profile DTaP,Tdap,Td Vaccine (8 - Td or Tdap) [facility] Start: 03-30-2025 Influenza vaccination Influenz a Vaccine (Season Ended) [facility] Start: 01-21-2025 Hospital admission, emergency, from emergency room, medical nature [facility] Start: 01-21-2025 Verification routine [facility] Start: 01-21-2025 Admission procedure [facility] Start: 03-30-2024 Covid-19 Vaccine ( season) Covid-19 Vaccine ( season) [facility] Start: 03-30-2024 Covid-19 Vaccine ( season) Covid-19 Vaccine ( season) [facility] Start: 03-30-2024 Influ[facility] Start: 02-20-2024 End: 02-20-2024 Patient encounter procedure 02/20/2024 2:00 PM EDT Office Visit Orthopaedics [address] [place] [address] Gisella De Santiago DO [address] [place] [address] shoulder pain, bycicle incident 01/02/24 [facility] Comment on above: shoulder pain, bycic le incident 01/02/24 [facility] Start: 01-15-2024 End: 01-15-2024 Patient encounter procedure 01/15/2024 2:20 PM EDT Office Visit [facility] [address] [place] [address] Shania Vieira, CARDIAC NURSE PRACTITIONER.NUTRITIONAL SERVICES HOST [address] [place], [place] [id number] [facility] Start: 12-30-2023 COVID-19 VACCINE (#1) COVID-19 VACCI NE (#1) [facility] Comment on above: Postponed from 06/13 (Declined at this time) Start: 12-12-2023 Lipid panel Lipid Screening [facility] Start: 09-29-2023 [facility] Start: 09-28-2023 Suicide precautions [facility] Start: 07-30-2023 Behavioral Health Screening Behavioral Health Screening [facility] Start: 07-30-2023 Depression Assessment [facility] Start: 07-29-2023 Depression Assessment Depression [facility] Comment on above: Postponed from 07/30 (Declined at this time) Start: 03-30-2023 Covid-19 Vaccine ( season) Covid-19 Vaccine ( season) [facility] Start: 03-30-2023 Influenza vaccination C [facility] Start: 12-29-2022 End: 02-28-2023 SYPHILIS TOTAL W/REFLEX SYPHILIS TOTAL W/REFLEX Lab Routine Exposure to STD Expected: 12/29/2022, Expires: 02/28/2023 [facility] Work Phone: Comment on above: Expected: 12/29/2022 , Expires: 02/28/2023 Start: 07-30-2022 DEPRESSION ASSESSMENT DEPRESSION ASS ESSMENT [facility] Start: 03-30-2022 Influenza vaccination [facility] Start: 08-24-2021 Adult depression screening assessment DEPRESSION SCREENING [facility] Start: 11-11-2020 Urine microalbumin profile [facility] Start: 03-30-2019 Influenza vaccination Flu vaccine (# 1) [place], [place] Start: 12-12-2007 Pneumococcal vaccination Pneumococcal Vaccine (1 of 2 - PCV) [facility] Start: 12-12-2007 Urine microalbumin profile DTAP,TDAP,TD (1 - Tdap) [facility] Start: 2006 Anxiety Screening Anxiety Screening [facility] Start: 2006 Depression Screening Depression Scre ening [facility] Start: 2006 HEPATITIS C SCREENING HEPATITIS C [facility] Start: 2006 Hepatitis C screening Hepatitis C [facility] Start: 2006 HIV SCREENING HIV SCREENING [facility] Start: 2006 HIV screening HIV Screening [facility] Start: 1994 PNEUMOCOCCAL (1 - PCV) PNEUMOCOCCAL (1 - PCV) [facility] Start: 1994 Pneumococcal vaccination [facility] Start: 1993 COVID-19 VACCINE (#1) COVID-19 VACCI NE (#1) [facility] Start: 06-13-1989 COVID-19 VACCINE (#1) COVID-19 VACCI NE (#1) [facility] Start: 1988 HEPATITIS B (1 of 3 - 3-dose series) HEPATITIS B (1 of 3 - 3-dose series) [facility] Chlamydia trachomatis+Neisseria gonorrhoeae DNA [Presence] in Urine by CARLOS with probe detection GC/CHLAMYDIA AMPLIF, URINE Microbiology Routine Exposure to STD 12/29/2022 5:06 PM EDT [facility] Work Phone: Patient Education ED Cellulitis [facility] Work Phone: Patient referral [facility] Work Phone: T VAGINALIS AMPLIFICATION T VAGINALIS AMPLIFICATION Lab Routine Exposure to STD 12/29/2022 5:02 PM EDT [facility] Work Phone: UA DIP, URINE (POC) UA DIP, URIN E (POC) Lab Routine Dysuria Ordered: 12/29/2022 [facility] Work Phone: Comment on above: Ordered: 12/29/2022 End: 02-17-2024 XR SHOULDER GENERAL 3V OR MORE AP/TRUE AP/OTHER LEFT XR SHOULDER GENERAL 3V OR MORE AP/TRUE AP/OTHER LEFT Radiology Routine Pain 1 Occurrences starting 01/18/2023 until 02/17/2024 [facility] Work Phone: Comment on above: 1 Occurrences starti ng 01/18/2023 until 02/17/2024 End: 02-17-2024 XR SHOULDER GENERAL 3V OR MORE AP/TRUE AP/OTHER RIGHT XR SHOULDER GENERAL 3V OR MORE AP/TRUE AP/OTHER RIGHT Radiology Routine Pain 1 Occurrences starting 01/18/2023 until 02/17/2024 [facility] Work Phone: Comment on above: 1 Occurrences starti ng 01/18/2023 until 02/17/[facility] Immunization Date Immunization Notes Care Provider Igor garcia 07-01-2023 tetanus toxoid, redu mag diphtheria toxoid, and acellular pertussis vaccine, adsorbed Shania Queden CARDIAC NURSE PRACTITIONER.NUTRITIONAL SERVICES HOST Work Phone: [facility] 11-11-2010 tetanus toxoid, redu mag diphtheria toxoid, and acellular pertussis vaccine, adsorbed Shania Queden CARDIAC NURSE PRACTITIONER.NUTRITIONAL SERVICES HOST Work Phone: [facility] 06-03-2009 novel Influenza-H1N1 -09, live virus for nasal administration Shania Queden CARDIAC NURSE PRACTITIONER.NUTRITIONAL SERVICES HOST Work Phone: [facility] 06-03-2009 influenza virus vacc ine, unspecified formulation Humera Gillis MA [facility] 11-28-2007 meningococcal polysaccharide (groups A, C, Y and W-135) diphtheria toxoid conjugate vaccine (MCV4P) Shania Queden CARDIAC NURSE PRACTITIONER.NUTRITIONAL SERVICES HOST Work Phone: [facility] 03-20-2005 hepatitis B vaccine, pediatric or pediatric/adolescent dosage Shania Queden CARDIAC NURSE PRACTITIONER.NUTRITIONAL SERVICES HOST Work Phone: [facility] 03-15-2004 hepatitis B vaccine, pediatric or pediatric/adolescent dosage Shania Queden CARDIAC NURSE PRACTITIONER.NUTRITIONAL SERVICES HOST Work Phone: [facility] 03-15-2004 TD(adult) unspecifie d formulation Shania Queden CARDIAC NURSE PRACTITIONER.NUTRITIONAL SERVICES HOST Work Phone: [facility] 03-04-2001 hepatitis B vaccine, pediatric or pediatric/adolescent dosage Shania Queden CARDIAC NURSE PRACTITIONER.NUTRITIONAL SERVICES HOST Work Phone: [facility] 03-04-2001 measles, mumps and rubella virus vaccine Shania Queden CARDIAC NURSE PRACTITIONER.NUTRITIONAL SERVICES HOST Work Phone: [facility] 02-22-1994 haemophilus influenz ae type b vaccine, conjugate unspecified formulation Shania Queden CARDIAC NURSE PRACTITIONER.NUTRITIONAL SERVICES HOST Work Phone: [facility] 02-15-1994 diphtheria, tetanus toxoids and acellular pertussis vaccine, unspecified formulation Shania Queden CARDIAC NURSE PRACTITIONER.NUTRITIONAL SERVICES HOST Work Phone: [facility] 02-15-1994 poliovirus vaccine, unspecified formulation Shania Queden CARDIAC NURSE PRACTITIONER.NUTRITIONAL SERVICES HOST Work Phone: [facility] 07-20-1993 haemophilus influenz ae type b vaccine, conjugate unspecified formulation Shania Queden CARDIAC NURSE PRACTITIONER.NUTRITIONAL SERVICES HOST Work Phone: [facility] 05-25-1993 haemophilus influenz ae type b vaccine, conjugate unspecified formulation Shania Queden CARDIAC NURSE PRACTITIONER.NUTRITIONAL SERVICES HOST Work Phone: [facility] 01-15-1991 diphtheria, tetanus toxoids and pertussis vaccine Shania Queden CARDIAC NURSE PRACTITIONER.NUTRITIONAL SERVICES HOST Work Phone: [facility] 01-15-1991 poliovirus vaccine, unspecified formulation Shania Queden CARDIAC NURSE PRACTITIONER.NUTRITIONAL SERVICES HOST Work Phone: [facility] 05-15-1990 haemophilus influenz ae type b vaccine, conjugate unspecified formulation Shania Queden CARDIAC NURSE PRACTITIONER.NUTRITIONAL SERVICES HOST Work Phone: [facility] 05-15-1990 measles, mumps and rubella virus vaccine Shania Queden CARDIAC NURSE PRACTITIONER.NUTRITIONAL SERVICES HOST Work Phone: [facility] 11-14-1989 diphtheria, tetanus toxoids and pertussis vaccine Shania Queden CARDIAC NURSE PRACTITIONER.NUTRITIONAL SERVICES HOST Work Phone: [facility] 05-23-1989 diphtheria, tetanus toxoids and pertussis vaccine Shania Queden CARDIAC NURSE PRACTITIONER.NUTRITIONAL SERVICES HOST Work Phone: [facility] 05-23-1989 poliovirus vaccine, unspecified formulation Shania Queden CARDIAC NURSE PRACTITIONER.NUTRITIONAL SERVICES HOST Work Phone: [facility] 02-07-1989 diphtheria, tetanus toxoids and pertussis vaccine Shania Queden CARDIAC NURSE PRACTITIONER.NUTRITIONAL SERVICES HOST Work Phone: [facility] 02-07-1989 poliovirus vaccine, unspecified formulation Shania Queden CARDIAC NURSE PRACTITIONER.NUTRITIONAL SERVICES HOST Work Phone: [facility] Payers Date Payer Category Payer Medicaid [id number] 2024 Self-pay 2023 Unknown [id number] 2022 Medicaid [employer] Member Fitz[place] bscriber Plan / Payer (Effective 2022-Present) Name: Gabriela Vidal Jr. Relation to Subscriber: Self Name: Gabriela Vidal Jr. Payer ID: [id number] (NAIC) Group ID: Not on file Type: Medicaid Address: [address] [address] [place] [address] [id number] 2022 Private Health Insurance [employer] [facility] [place] [id number] 2022-Present [address] [address] [place] [address] Medicaid [id number] 2022 Unknown 2022 Unknown [id number] 2019 Unknown [employer] CARD PPO OOS [id number] 2019-Present [phone] [address] [place] [address] PPO [id number] 1988 Unknown [id number] Unknown [id number] Unknown [id number] Unknown [id number] Unknown [id number] Unknown [id number] Social History Date Type Detail Facility Start: 05-18-2019 End: 01-21-2025 Tobacco smoking status NHIS Current every day smoker [facility] Work Phone: Start: 05-18-2019 End: 03-12-2024 Alcohol intake Never [facility] Work Phone: Start: 05-18-2019 History SDOH Alcohol Frequency 1 [place], [place] Start: 1990 Sex Assigned At Not on file M [place], [place] History of tobacco use Cigarette Smoker C [facility] Work Phone: Start: 07-16-2014 End: 03-12-2024 Cigarettes smoked current (pack per day) - Reported 1 [facility] Work Phone: Start: 07-16-2014 End: 04-04-2023 Tobacco use and exposure Smokeless tobacco non-user [facility] Work Phone: Start: 01-03-2022 End: 01-15-2024 Alcohol intake Ex-drinker (finding) [facility] Start: 05-17-2020 History SDOH Alcohol Frequency 2 [facility] Start: 02-02-2020 History SDOH Alcohol Comment 5 times a year [facility] Start: 12-24-2021 End: 01-03-2022 Exposure to SARS-CoV-2 (event) Not sure [facility] Start: 09-28-2023 Tobacco smokin g consumption unknown [facility] How often to you hav e a drink containing alcohol? Monthly or less [facility] Work Phone: Average Number of Drinks Not on file [facility] Start: 1990 Sex Assigned At Male W [facility] Functional Status Date Assessment Result Facility 07-16-2014 Are you deaf, or do you have serious difficulty hearing No 07/16/2014 8:04 AM Ladi cOampo Ma No [facility] 07-16-2014 Are you blind, or do you have serious difficulty seeing, even when wearing glasses No 07/16/2014 8:04 AM Ladi Ocampo Ma No [facility] 07-16-2014 Do you have serious difficulty walking or climbing stairs No 07/16/2014 8:04 AM Ladi Ocampo Ma No [facility] 07-16-2014 Do you have difficul ty dressing or bathing No 07/16/2014 8:04 AM Ladi Ocampo Ma No [facility] 07-16-2014 Because of a physica l, mental, or emotional condition, do you have difficulty doing errands alone such as visiting a physician's office or shopping No 07/16/2014 8:04 AM Ladi Ocampo Ma No [facility] Mental Status Date Assessment Result Facility 07-16-2014 Because of a physica l, mental, or emotional condition, do you have serious difficulty concentrating, remembering, or making decisions Yes 07/16/2014 8:04 AM Ladi Ocampo Ma Yes [facility] Clinical Notes 01-06-2022 to 01-21-2025 Estephania Lemos LPN - 01/12/2025 2:17 PM Estephania Marroquin LPN - 04/21/2024 4:51 PM EDTTelephone Encounter - Shania Vieira APRN.NUTRITIONAL SERVICES HOST - 01/28/2024 12:12 PM EDT Note Date & Type Note Facility 01-21-2025 Radiology Diagnostic study note [facility] Imaging Services [address] [place] [address] Abdomen/Pelvis W IV Cont ONLY MR#: [id number] Acct: [id number] Name: GABRIELA VIDAL Jr. Rep #: [id number] : 1990 M 34 From: Shara Damico MD PCP: Shania Vieira TRAPPER ANIMALHiraC Status: REG E R Study:Abdomen/Pelvis W IV Cont ONLY Date of E xam: 01/21/25 Exam# [id number] Ordering Dr: Lisa Quinn DO PROCEDURE: ABDOMEN/PELVIS W IV CONT ONLY 01/21/2025 REASON FOR EXAM: LLQ ABD PAIN TECHNIQUE: ABDOMEN/PELVIS W IV CONT ONLY Coronal and Sagittal reconstruction series were provided. CONTRAST: 100 mL of Isovue 370 One or more dose reduction techniques were used (e.g., Automated exposure control, adjustment of the mA and/or kV according to patient size, use of iterative reconstruction technique. RADIATION DOSE SUMMARY: DLP: 967 mGycm COMPARISON: Prior CT from 03/2024 FINDINGS: Limited sections of the lung bases demonstrate no focal pulmonary mass or consolidations. The liver, spleen, pancreas, and both adrenal glands demonstrate no acute findings. Hepatomegaly to 21 cm. The gallbladder is unremarkable. The stomach is unremarkable. The small bowel loops are not dilated. The appendix is normal. Acute sigmoid colon diverticulitis with perforation and extensive surrounding inflammation and fluid. Free air from perforation is noted best seen on series 2, image 106. No formed abscess at this time. No bowel obstruction. The kidneys are unremarkable. Thickened urinary bladder wall likely reactive. No fistulization is noted at this time. The pelvic structures are intact. There is no solid pelvic mass. No significant lymphadenopathy. Prominent para-aortic lymph nodes The aorta and IVC demonstrate no acute findings. Visualized osseous structures demonstrate no acute abnormality. CT/Abdomen/Pelvis W IV Cont ONLY IMPRESSION: Acute sigmoid colon diverticulitis with perforation and extensive surrounding inflammation and fluid. Free air from perforation is noted best seen on series 2, image 106. No formed abscess at this time. No bowel obstruction. Thickened urinary bladder wall likely reactive. No fistulization is noted at this time. Dr. Quinn was notified by Minh Damico at 9:25 pm EST on 01/21/2025. Reading Location: [facility] CC: TRAPPER ANIMALDioni Vieira; Dr. Shiela Quinn, DO ~ Lehr Tender: Signed [facility] 01-13-2025 Note HNO ID: [id number] Author: ESTEPHANIA LEMOS LPN Service: ? Author Type: LICENSED NURSE Type: Progress Notes Filed: 01/13/2025 09:29 Note Text: ED Follow-Up Note Provider Action / FYI: Call completed by: AUGUSTO Patient seen in ED: Out of Network ED Contact made with Patient: No, unable to leave message. No longer working number. Estephania Lemos LPN January 13, 2025 9:29 AM [facility] 01-12-2025 Note HNO ID: [id number] Author: ESTEPHANIA LEMOS LPN Service: ? Author Type: LICENSED NURSE Type: Progress Notes Filed: 01/12/2025 14:18 Note Text: ED Follow-Up Note Provider Action / FYI: Call completed by: AUGUSTO Patient seen in ED: Out of Network ED Contact made with Patient: No, unable to leave message. Phone number is no longer in service. Estephania Lemos LPN January 12, 2025 2:18 PM [facility] 01-12-2025 History of Present illness Narrative ED Follow-Up Note Provider Action / FYI: Call completed by: AUGUSTO Patient seen in ED: Out of Network ED Contact made with Patient: No, unable to leave message. Phone number is no longer in service. Estephania Lemos LPN January 12, 2025 2:18 PM documented in this encounter [facility] 01-12-2025 Note Patient Outreach (AG FAMPLE) DANNAGABRIELA Juarez ([id number]) 1990 M Date Time Provider Department 01/12/25 [...] Date Reviewed: 01/15/2024 Reviewed by: Shania Vieira APRN.NUTRITIONAL SERVICES HOST - Fully Assessed Reason for Visit: ED [...] Encounter Status:Closed by ESTEPHANIA LEMOS on 01/12/25 [facility] 01-07-2025 Discharge summary [facility] 04-21-2024 Note HNO ID: [id number] Author: ESTEPHANIA LEMOS LPN Service: ? Author Type: LICENSED NURSE Type: Progress Notes Filed: 04/23/2024 07:40 Note Text: TRANSITIONAL CARE MANAGEMENT (TCM) COMMUNITY MONITORING PROGRAM - CENTER Provider Action/FYI: SUMMARY: Pt discharged from [facility] on 04/19/2024. Admitted for: ISABELLA, COVID-19 Patient seen Inpatient NURY Visit? No. Patient seen ICARE Program? No. Contact made with patient: No - next outreach attempt will be on next business day No Contact made. Outreach ended [facility] 04-21-2024 History of Presen t illness Narrative TRANSITIONAL CARE MANAGEMENT (TCM) COMMUNITY MONITORING PROGRAM - CENTER Provider Action/FYI: SUMMARY: Pt discharged from [facility] on 04/19/2024. Admitted for: ISABELLA, COVID-19 Patient seen Inpatient NURY Visit? No. Patient seen ICARE Program? No. Contact made with patient: No - next outreach attempt will be on next business day No Contact made. Outreach ended documented in this encounter [facility] 04-21-2024 Note Patient Outreach (AG INTMLW) GABRIELA VIDAL JR. ([id number]) 1990 M Date Time Provider Department 04/21/24 ESTEPHANIA LEMOS AGINTMLW During your visit today, we recorded the following information about you: Estephania Lemos LPN 04/23/2024 7:40 AM Signed TRANSITIONAL CARE MANAGEMENT (TCM) COMMUNITY MONITORING PROGRAM - JUDD Provider Action/FYI: SUMMARY: Pt discharged from [facility] on 04/19/2024. Admitted for: ISABELLA, COVID-19 Patient seen Inpatient NURY Visit? No. Patient seen ICARE Program? No. Contact made with patient: No - next outreach attempt will be on next No Contact made. Outreach ended Allergies As of Date: 04/21/2024 (No Known Allergies) Date Reviewed: 01/15/2024 Reviewed by: Shania Vieira APRN.NUTRITIONAL SERVICES HOST - Fully Assessed Reason for Visit: Transition Of Care [4074] Cmt: Pt was admitted to [facility] on 04/18/2024 for ISABELLA, COVID-19. Pt was [...] Schizoaffective disorder (HCC) [F25.9] 01/15/2024 Drug overdose [T50.531A] 01/15/2024 Substance abuse (HCC) [F19.10] 01/15/2024 Acute psychosis (HCC) [F23] 10/03/2023 Auditory hallucinations [R44.0] 01/15/2024 Marijuana use [F12.90] 01/15/2024 Encounter Status:Closed by ESTEPHANIA LEMOS on 04/23/24 [facility] 04-19-2024 Note [facility] Medical Records Department [address] [place] [address] Discharge Summary 04/19/24 1215 MR#: [id number] Acct: [id number] Name: DANNAGABRIELA ZAK Durham Rep #: [id number] : 1990 33 From: Fili Valencia DO PCP: ELOISA Braedn Status:DIS IN [facility] Providers Date of Admission: 04/18/24 Date of [...] Patient is a 33-year-old male who presented [facility] ED on 04/18/2021 with nausea, vomiting and diarrhea. Short hospital course as noted below. Patient discharged home in stable condition on 04/19. . Mild sigmoid colitis ??? Presented with fairly [...] inpatient but suspect COVID was not the p d driver of his infectious symptoms, and with [...] Non-Reactive 04/19/24 04:4 (more content not included)... [facility] 01-28-2024 Telephone encounter Note Referral placed to orthopedics/sports medicine [facility] 01-28-2024 Miscellaneous Notes Referral placed to orthopedics/sports medicine Patient came to office because he is still in pain. Referral was give for Dr De Santiago. Please enter referral to patient chart. Thanks documented in this encounter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 prosecute any alcohol or drug abuse patient.[facility] HospitalIn the event this information is protected by the Federal Confidentiality of Alcohol and Drug Abuse Patient Records regulations: The Federal rules restrict any use of the information to criminally investigate or prosecute any alcohol or drug abuse patient.[facility] HospitalIn the event this information is protected by the Federal Confidentiality of Alcohol and Drug Abuse Patient Records regulations: The Federal rules restrict any use of the information to criminally investigate or prosecute any alcohol or drug abuse patient.[facility] HospitalIn the event this information is protected by the Federal Confidentiality of Alcohol and Drug Abuse Patient Records regulations: The Federal rules restrict any use of the information to criminally investigate or prosecute any alcohol or drug abuse patient.[facility] HospitalIn the event this information is protected by the Federal Confidentiality of Alcohol and Drug Abuse Patient Records regulations: The Federal rules restrict any use of the information to criminally investigate or prosecute any alcohol or drug abuse patient.[facility] HospitalIn the event this information is protected by the Federal Confidentiality of Alcohol and Drug Abuse Patient Records regulations: The Federal rules restrict any use of the information to criminally investigate or prosecute any alcohol or drug abuse patient.[facility] HospitalIn the event this information is protected by the Federal Confidentiality of Alcohol and Drug Abuse Patient Records regulations: The Federal rules restrict any use of the information to criminally investigate or prosecute any alcohol or drug abuse patient.[facility] HospitalIn the event this information is protected by the Federal Confidentiality of Alcohol and Drug Abuse Patient Records regulations: The Federal rules restrict any use of the information to criminally investigate or prosecute any alcohol or drug abuse patient.[facility] Care Teams (unrecognized sec tion and content) Lightout Examiner Relationship Specialty Start Date End Date Shania Vieira, APOORVA.[facility] [address] [place] [address] PCP - General Family Practice 05/17/20 Lightout Examiner Relationship Specialty Start Date End Date Shania Vieira, CARDIAC NURSE PRACTITIONER.NUTRITIONAL SERVICES HOST [address] [place] [address] PCP - General Family Medicine 05/17/20 Lightout Examiner Relationship Specialty Start Date End Date Shania Vieira, CARDIAC NURSE PRACTITIONER.NUTRITIONAL SERVICES HOST [address] [place] [address] PCP - General Family Medicine 05/17/20 Lightout Examiner Relationship Specialty Start Date End Date Shania Vieira, CARDIAC NURSE PRACTITIONER.NUTRITIONAL SERVICES HOST [address] [place] [address] PCP - General Family Medicine 05/17/20 Lightout Examiner Relationship Specialty Start Date End Date Shania Vieira, CARDIAC NURSE PRACTITIONER.NUTRITIONAL SERVICES HOST [address] [place] [address] PCP - General Family Medicine 05/17/20 Lightout Examiner Relationship Specialty Start Date End Date Shania Vieira, CARDIAC NURSE PRACTITIONER.NUTRITIONAL SERVICES HOST [address] [place] [address] PCP - General Family Medicine 05/17/20 Lightout Examiner Relationship Specialty Start Date End Date Shania Vieira, CARDIAC NURSE PRACTITIONER.NUTRITIONAL SERVICES HOST [address] [place] [address] PCP - General Family Medicine 05/17/20 Lightout Examiner Relationship Specialty Start Date End Date Shania Vieira, CARDIAC NURSE PRACTITIONER.NUTRITIONAL SERVICES HOST [address] [place] [address] PCP - General Family Medicine 05/17/20 Lightout Examiner Relationship Specialty Start Date End Date Shania Vieira, CARDIAC NURSE PRACTITIONER.NUTRITIONAL SERVICES HOST [address] [place], [place] [id number] PCP - General Family Medicine 05/17/20 Team Status: Active Member Role Status Dates No Primary Care Physician Primary Care Provider Active Team Status: Inactive Member Role Status Dates Dr. Jose E Meier DO Emergency Provider Active No Primary Care Physician Primary Care Provider Active Lightout Examiner Relationship Specialty Start Date End Date Shania Vieira, CARDIAC NURSE PRACTITIONER.NUTRITIONAL SERVICES HOST [address] [place] [address] PCP - General Family Medicine 01/15/24 Lightout Examiner Relationship Specialty Start Date End Date Shania Viiera CARDIAC NURSE PRACTITIONER.NUTRITIONAL SERVICES HOST [address] [place], [place] [id number] PCP - General Family Medicine 01/15/24 Lightout Examiner Relationship Specialty Start Date End Date Shania Vieira, CARDIAC NURSE PRACTITIONER.NUTRITIONAL SERVICES HOST [address] [place], [place] [id number] PCP - General Family Medicine 05/17/20 12/16/23 Lightout Examiner Relationship Specialty Start Date End Date Shania Vieira, CARDIAC NURSE PRACTITIONER.NUTRITIONAL SERVICES HOST [address] [place] [address] PCP - General Family Medicine 01/15/24 Team Status: Active Member Role Status Dates Shania Vieira TRAPPER ANIMAL, TRAPPER ANIMAL-C Primary Care Provider Active Team Status: Inactive Member Role Status Dates Shania Vieira TRAPPER ANIMAL, TRAPPER ANIMAL-C Primary Care Provider Active Start: January 07, 2025 End: January 07, 2025 Dr. Stephan Burk MD Emergency Provider Active S tart: January 07, 2025 End: January 07, 2025 Lightout Examiner Relationship Specialty Start Date End Date Shania Vieira CARDIAC NURSE PRACTITIONER.NUTRITIONAL SERVICES HOST [address] [place] [address] PCP - General Family Medicine 01/15/24 Team Status: Inactive Member Role Status Dates Shania Vieira TRAPPER ANIMAL, TRAPPER ANIMAL-C Primary Care Provider Active Start: January 07, 2025 End: January 07, 2025 Dr. Stephan Burk MD Attending Provider Active S tart: January 07, 2025 End: January 07, 2025 Dr. Setphan Burk MD Emergency Provider Active S tart: January 07, 2025 End: January 07, 2025 Team Status: Active Member Role Status Dates Shania Vieira TRAPPER ANIMAL, TRAPPER ANIMAL-C Primary Care Provider Active Start: January 21, 2025 Dr. Shiela Quinn DO Emergency Provider Active Start: January 21, 2025 Dr. Zechariah Bruno MD Admit Provider Active St art: January 21, 2025 Dr. Zechariah Bruno MD Attending Provider Active Start: January 21, 2025 <item> Privacy Markings (unrecogniz ed section and content) Section Author: Sara Rudd PROHIBITION ON REDISCLOSURE OF CONFIDENTIAL INFORMATION This notice accompanies a disclosure of information concerning a client made to you with the consent of such client. Goals (unrecognized section and content) Goals may be documented in a n alternate sectionGoals may be documented in an alternate sectionGoals may be documented in an [...] BE BASED ON THE PRIMARY CLINICAL RECORDS. [facility] [employer] [facility]. provides no warranty or guarantee of the accuracy or completeness of information in this document.
--- OUTSIDE RECORDS SUMMARY | 2025-01-22 05:03 | XMS RPT_ITS | CCD ---
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 [place], [address] Basophils/100 WBC (Bld) 0.1 % Normal 0-1 [facility] Comment on above: Performed By: #### M 100.637, M100.6796 #### [facility] [address] [place], [address] Eosinophils/100 WBC (Bld) 0.0 % Normal 0-5 [facility] Comment on above: Performed By: #### M 100.637, M100.6796 #### [facility] [address] [place], [address] Erythrocyte distribution width (RBC) [Ratio] 13.3 % Normal 11.6-14.6 [facility] Comment on above: Performed By: #### M 100.637, M100.6796 #### [facility] [address] [place], [address] Hematocrit (Bld) [Volume fraction] 43.8 % Normal 40-54 [facility] Comment on above: Performed By: #### M 100.637, M196 #### [facility] [address] [place], [address] Hemoglobin (Bld) [Mass/Vol] 14.8 g/dL Normal 13.0-16.5 [facility] Comment on above: Performed By: #### M 100.637, #### [facility] [address] [place], [address] IG% 0.400 Normal 0.0-0.9 [facility] Comment on above: Result Comment: IG% - Immature Granulocytes (promyelocytes, myelocytes and metamyelocytes) > 1% indicates that a LEFT SHIFT is Present. Performed By: #### M 100.637, 96 #### [facility] [address] [place], [address] Lymphocytes/100 WBC (Bld) 6.3 % Low 19-41 [facility] Comment on above: Performed By: #### M 100.637, 96 #### [facility] [address] [place], [address] MCH (RBC) [Entitic mass] 29.5 pg Normal 27.0-32.0 [facility] Comment on above: Performed By: #### M 100.637, 96 #### [facility] [address] [place], [address] MCHC (RBC) [Mass/Vol] 33.8 g/dL Normal 32-36 [facility] Comment on above: Performed By: #### M 100.637, 96 #### [facility] [address] [place], [address] MCV (RBC) [Entitic vol] 87.3 fL Normal 80-94 [facility] Comment on above: Performed By: #### M 100.637, M1.96 #### [facility] [address] [place], [address] Monocytes/100 WBC (Bld) 2.0 % Normal 0-10 [facility] Comment on above: Performed By: #### M 100.637, .96 #### [facility] [address] [place], [address] Neutrophils/100 WBC (Bld) 91.2 % High 47-70 [facility] Comment on above: Performed By: #### M 100.637, 96 #### [facility] [address] [place], [address] Nucleated RBC (Bld) [#/Vol] 0 10*3/uL Normal 0-5 [facility] Comment on above: Performed By: #### M 100.637, .96 #### [facility] [address] [place], [address] Platelet mean volume (Bld) [Entitic vol] 10.2 fL Normal 6.2-12.0 [facility] Comment on above: Performed By: #### M 100.637, .96 #### [facility] [address] [place], [address] Platelets (Bld) [#/Vol] 269 10*3/uL Normal 150-450 [facility] Comment on above: Performed By: #### M 100.637, M1.96 #### [facility] [address] [place], [address] RBC (Bld) [#/Vol] 5.02 10*6/uL Normal 4.6-6.[address] [facility] Comment on above: Performed By: #### M 100.637, M100.6796 #### [facility] [address] [place], [address] RDW SD 42.8 fl Normal 35.1-43.9 [facility] Comment on above: Performed By: #### M 100.637, M100.6796 #### [facility] [address] [place], [address] WBC (Bld) [#/Vol] 16.6 10*3/uL High 4.4-11.[address] [facility] Comment on above: Performed By: #### M 100.637, M100.6796 #### [facility] [address] [place], [address] SMEAR COMMENT SCANNED Normal [facility] Comment on above: Result Comment: NEUT ROPHILLIA PRESENT Performed By: #### L 100.0100, L501.2450, L500.2500, L500.3400, L501.5200 #### [facility] [address] [place], [address] CDIFF (PCR)on 04-18-2024 CDIFF Is the patient receiving laxatives? N New/unexplained onset of 3 or more stools in past 24 hrs? Y Pending 027 027 NAP1-B1 Presumptive Negative *for epidemiolologic???use C. Diff PCR Negative- No toxigenic C. Diff Detected Normal [facility] Comment on above: Performed By: #### M 100.637, M100.6796 #### [facility] [address] [place], [address] CPK Total, Creatine Kinaseon 04-18-2024 CPK TOTAL 790 U/L High 39-308 [facility] Comment on above: Order Comment: Comme nts: add to ED labs Performed By: #### L 501.9710 #### [facility] [address] [place], [address] CRPon 04-18-2024 C-REACTIVE PROT 2.95 mg/L Normal 0.0-3.0 [facility] Comment on above: Order Comment: Comme nts: May add to ED labsmay add to ED labs Result Comment: C-Re active Protein (CRP) provides useful information for the diagnosis, therapy and monitoring of inflammatory processes and associated diseases. For the evaluation of Relative Risk for Cardiovascular Disease, a High Sensitivity CRP (HSCRP) should be ordered. Performed By: #### M 100.637, M100.6796 #### [facility] [address] [place], [address] Comprehensive Metabolic Prof ilon 04-18-2024 Albumin [Mass/Vol] 3.8 g/dL Normal 3.2-5.0 [facility] Comment on above: Performed By: #### M 100.637, M100.6796 #### [facility] [address] [place], [address] Albumin/Globulin [Mass ratio] 1.2 {ratio} Normal 0.9-2.4 [facility] Comment on above: Performed By: #### M 100.637, M100.6796 #### [facility] [address] [place], [address] ALK P 72 U/L Normal 45-117 [facility] Comment on above: Performed By: #### M 100.637, M100.6796 #### [facility] [address] [place], [address] ALT [Catalytic activity/Vol] 51 U/L Normal 16-61 [facility] Comment on above: Performed By: #### M 100.637, M100.6796 #### [facility] [address] [place], [address] AST [Catalytic activity/Vol] 62 U/L High 15-37 [facility] Comment on above: Performed By: #### M 100.637, M100.96 #### [facility] [address] [place], [address] Bilirubin [Mass/Vol] 1.00 mg/dL Normal 0.20-1.00 [facility] Comment on above: Result Comment: For patients on eltrombopag therapy, use of Dimension [place] TBIL is not recommended. Performed By: #### M 100.637, M100.96 #### [facility] [address] [place], [address] BUN/CRE 14.6 RATIO Normal 10-20 [facility] Comment on above: Performed By: #### M 100.637, M1.96 #### [facility] [address] [place], [address] CA,Total 8.9 mg/dL Normal 8.5-10.1 [facility] Comment on above: Performed By: #### M 100.637, M100.96 #### [facility] [address] [place], [address] Chloride [Moles/Vol] 109 mmol/L High 98-107 [facility] Comment on above: Performed By: #### M 100.637, M100.96 #### [facility] [address] [place], [address] CO2 [Moles/Vol] 20.0 mmol/L Low 21.0-32.0 [facility] Comment on above: Performed By: #### M 100.637, M100.6796 #### [facility] [address] [place], [address] Creatinine [Mass/Vol] 1.64 mg/dL High 0.70-1.30 [facility] Comment on above: Result Comment: The validity of the calculated GFR GFRAA in patients over 70 years has not been determined. Clinical correlation is essential. Performed By: #### M 100.637, M100.96 #### [facility] [address] [place], [address] ECRCL 66.96 ml/min Normal [facility] Comment on above: Performed By: #### M 100.637, M100.96 #### [facility] [address] [place], [address] EST GFR - AA 62 mL/min Normal >60 [facility] Comment on above: Result Comment: Afri can Marshallese GFR Calc Performed By: #### M 100.637, M1.96 #### [facility] [address] [place], [address] GAP 10 Normal 5-15 [facility] Comment on above: Performed By: #### M 100.637, .96 #### [facility] [address] [place], [address] GFR/1.73 sq M.predicted among non-blacks MDRD (S/P/Bld) [Vol rate/Area] 51 mL/min/{1.73_m2} Low >60 [facility] Comment on above: Result Comment: Non- GFR Calc Performed By: #### M 100.637, M1.96 #### [facility] [address] [place], [address] Globulin (S) [Mass/Vol] 3.1 g/dL Normal 2.2-4.2 [facility] Comment on above: Performed By: #### M 100.637, M100.96 #### [facility] [address] [place], [address] Glucose [Mass/Vol] 116 mg/dL High 74-106 [facility] Comment on above: Result Comment: Fast ing Glucose result from 100 to 125 mg/dL suggests IMPAIRED HOMEOSTASIS per A.D.A. criteria. Performed By: #### M 100.637, M100.6796 #### [facility] [address] [place], [address] Potassium [Moles/Vol] 4.2 mmol/L Normal 3.5-5.1 [facility] Comment on above: Performed By: #### M 100.637, M100.6796 #### [facility] [address] [place], [address] Sodium [Moles/Vol] 139 mmol/L Normal 136-145 [facility] Comment on above: Performed By: #### M 100.637, M100.6796 #### [facility] [address] [place], [address] T PROT 6.9 g/dL Normal 6.4-8.2 [facility] Comment on above: Performed By: #### M 100.637, M100.96 #### [facility] [address] [place], [address] Urea nitrogen [Mass/Vol] 24 mg/dL High 7-18 [facility] Comment on above: Performed By: #### M 100.637, M100.6796 #### [facility] [address] [place], [address] D-Dimer Quantitative (DVT/PE )on 04-18-2024 D-DIMER QUANT 0.39 FEU/ug/m Normal 0.27-0.49 [facility] Comment on above: Result Comment: NORM AL D-Dimer level (<0.50) indicates no DVT or PE. Performed By: #### M 100.637, M100.6796 #### [facility] [address] [place], [address] Emergency Department Summary on 04-18-2024 Emergency Department Summary [facility] Medical Records Department [address] [place] [address] Emergency Department Summary 04/18/24 MR#: [id number] Acct: [id number] Name: GABRIELA VIDAL Jr. Rep #: [id number] : 1990 33 From: Esteban Medel DO [...] viral st (more content not included)... Normal [facility] Erythrocyte Sed Rateon 04-18 SED RATE Normal 0-20 [facility] Comment on above: Result Comment: JIMMY ASKEW,RN AWARE OF CANCELLING, SHE WILL INFORM Performed By: #### M 100630, M100.6796 #### [facility] [address] [place], [place], [address] Ferritinon 04-18-2024 Ferritin [Mass/Vol] 175 ng/mL Normal 26-[address] [facility] Comment on above: Order Comment: Comme nts: May add to ED labsmay add to ED labs Performed By: #### M 100.731, M100.6596 #### [facility] [address] [place], [address] H AND P Exam - Hospitaliston 04-18-2024 H&P Exam - Hospitalist [facility] Medical Records Department [address] [facility] [place] [address] H P Exam - Hospitalist 04/18/24 0228 MR#: [id number] Acct: [id number] Name: GABRIELA VIDAL Rep #: [id number] : 1990 33 From: Lucero Vidal MD PCP: ELOISA Braden Status:ADM IN Location: [facility] HPI - General General Date of Admission: 04/18/24 Date of Service: 04/18/24 Chief Complaint: N/V/D HPI Narrative The patient is a 33 y/o M w/ PMHx: Anxiety and Depression/Mood disorder/High suspicion underlying schizophrenia with history of frequent auditory hallucinations, Tobacco use, CKD stage II per GFR trending, History of Polysubstance abuse (Fentanyl, Methamphetamines per prior records) who presents to the [facility] ED on 04/18/24 with history of onset [...] Examination: Genera (more content not included)... Normal [facility] HIV - WCHon 04-18-2024 HIV Non-Reactive Normal Nonreactive [facility] Comment on above: Order Comment: Reaso n for Exam: Hx polysubstance abuseReason for Exam: Hepatitis Screen Performed By: #### L 509.8000, L3890.6005, L3890.6100, L3890.6200, L3890.6300 ####[facility] [address] [place], [place], [address] Hepatitis B Surface Antibody on 04-18-2024 HEP B Surf Ab Non-Reactive Normal [facility] Comment on above: Order Comment: Reaso n for Exam: Hx polysubstance abuseReason for Exam: Hepatitis Screen Result Comment: Non Reactive: Inconsistent with immunity less than <10 mIU/mL Reactive: Consistent with immunity greater than or equal to 10 mIU/mL Performed By: #### L 509.8000, L3890.6005, L3890.6100, L3890.6200, L3890.6300 ####[facility] [address] [place], [place], [address] Hepatitis B Surface Antigeno n 04-18-2024 HEP B Surf Ag Non-Reactive Normal Nonreactive [facility] Comment on above: Order Comment: Reaso n for Exam: Hx polysubstance abuseReason for Exam: Hepatitis Screen Performed By: #### L 509.8000, L3890.6005, L3890.6100, L3890.6200, L3890.6300 ####[facility] [address] [place], [address] Hepatitis C Antibodyon 04-18 Hepatitis C AB Non-Reactive Normal Nonreactive [facility] Comment on above: Order Comment: Reaso n for Exam: Hx polysubstance abuseReason for Exam: Hepatitis Screen Result Comment: Non Reactive: < 0.8 Equivocal: >/= 0.8 to < 1.0 Reactive: >/= 1.0 The CDC requires that a reactive/equivocal HCV antibody result be sent out for confirmation. HCV Quant by PCR testing. Performed By: #### L 509.8000, L3890.6005, L3890.6100, L3890.6200, L3890.6300 ####[facility] [address] [place], [place], [address] L509.8000on 04-18-2024 Syphilis Abs Non-Reactive Normal [facility] Comment on above: Order Comment: Reaso n for Exam: Hx polysubstance abuseReason for Exam: Hepatitis Screen Performed By: #### L 509.8000, L3890.6005, L3890.6100, L3890.6200, L3890.6300 ####[facility] [address] [place], [address] LDHon 04-18-2024 LDH 338 U/L High 87-241 [facility] Comment on above: Order Comment: Comme nts: May add to ED labsmay add to ED labs Performed By: #### M 100.637, M100.6796 #### [facility] [address] [place], [address] Lipaseon 04-18-2024 Lipase [Catalytic activity/Vol] 17 U/L Normal 13-75 [facility] Comment on above: Result Comment: Aniyah castañeda note: LIPASE revised reference range effective 22. New Lipase methodology. Expected to produce lower values than the previous assay method. NEW Reference Range: 13 - 75 U/L Performed By: #### L 100.0100, L501.2450, L500.2500, L500.3400, L501.5200 #### [facility] [address] [place], [address] Liver Profileon 04-18-2024 Albumin [Mass/Vol] 4.8 g/dL Normal 3.2-5.0 [facility] Comment on above: Performed By: #### L 100.0100, L501.2450, L500.2500, L500.3400, L501.5200 #### [facility] [address] [place], [address] ALK P 85 U/L Normal 45-117 [facility] Comment on above: Performed By: #### L 100.0100, L501.2450, L500.2500, L500.3400, L501.5200 #### [facility] [address] [place], [address] ALT [Catalytic activity/Vol] 61 U/L Normal 16-61 [facility] Comment on above: Performed By: #### L 100.0100, L501.2450, L500.2500, L500.3400, L501.5200 #### [facility] [address] [place], [address] AST [Catalytic activity/Vol] 59 U/L High 15-37 [facility] Comment on above: Performed By: #### L 100.0100, L501.2450, L500.2500, L500.3400, L501.5200 #### [facility] [address] [place], [address] Bilirubin [Mass/Vol] 1.50 mg/dL High 0.20-1.00 [facility] Comment on above: Result Comment: For patients on eltrombopag therapy, use of Dimension [place] TBIL is not recommended. Performed By: #### L 100.0100, L501.2450, L500.2500, L500.3400, L501.5200 #### [facility] [address] [place], [address] Bilirubin.direct [Mass/Vol] 0.37 mg/dL High 0.00-0.30 [facility] Comment on above: Performed By: #### L 100.0100, L501.2450, L500.2500, L500.3400, L501.5200 #### [facility] [address] [place], [address] Globulin (S) [Mass/Vol] 3.6 g/dL Normal 2.2-4.2 [facility] Comment on above: Performed By: #### L 100.0100, L501.2450, L500.2500, L500.3400, L501.5200 #### [facility] [address] [place], [address] T PROT 8.4 g/dL High 6.4-8.2 [facility] Comment on above: Performed By: #### L 100.0100, L501.2450, L500.2500, L500.3400, L501.5200 #### [facility] [address] [place], [address] M100.678on 04-18-2024 M100.678 Copy of report sent to Infection Control Printer MS#[id number] 04/18/24 1335 ERICKA. CRITICAL VALUE CALLED TO LSPARR 04/18/24 0122 Abundio Leon. RESULTS READ BACK BY SAME. SARS-CoV-2 (COVID 19) A Positive A INFLUENZA A Negative INFLUENZA B Negative RSV PCR Negative SARS-CoV-2 (COVID 19 PCR) Normal [facility] Comment on above: Performed By: #### M 100.678 ####[facility] [address] [place], [address] Magnesiumon 04-18-2024 Magnesium [Mass/Vol] 2.2 mg/dL Normal 1.6-2.6 [facility] Comment on above: Performed By: #### L 100.0100, L501.2450, L500.2500, L500.3400, L501.5200 #### [facility] [address] [place], [address] Procalcitoninon 04-18-2024 Procalcitonin 3.46 ng/mL High 0.00-0.09 [facility] Comment on above: Result Comment: A [...] Performed By: #### M 100.637, M196 #### [facility] [address] [place], [address] Urine Drug Screen (VISTA)on 04-18-2024 AMPHETAMINES Positive Abnormal <1000 ng/mL [facility] Comment on above: Performed By: #### M 100.637, 96 #### [facility] [address] [place], [address] BARBITIURATES Negative Normal < 200 ng/mL [facility] Comment on above: Performed By: #### M 100.637, 96 #### [facility] [address] [place], [address] BENZODIAZIPINE Negative Normal < 200 ng/mL [facility] Comment on above: Performed By: #### M 100.63, 96 #### [facility] [address] [place], [address] COCAINE Negative Normal < 300 ng/mL [facility] Comment on above: Performed By: #### M 100.637, 96 #### [facility] [address] [place], [address] ECSTACY Positive Abnormal < 500 ng/mL [facility] Comment on above: Performed By: #### M 100.637, 96 #### [facility] [address] [place], [address] METHADONE Negative Normal < 300 ng/mL [facility] Comment on above: Performed By: #### M 100.637, M196 #### [facility] [address] [place], [address] OPIATES Negative Normal < 300 ng/mL [facility] Comment on above: Performed By: #### M 100.637, M100.6796 #### [facility] [address] [place], [place], [address] PCP Negative Normal < 25 ng/mL [facility] Comment on above: Performed By: #### M 100.637, M100.6796 #### [facility] [address] [place], [place], [address] THC Positive Abnormal < 50 ng/mL [facility] Comment on above: Performed By: #### M 100.637, M100.6796 #### [facility] [address] [place], [place], [address] VISTA UDS PH 3 Normal [facility] Comment on above: Performed By: #### M 100.637, M100.6796 #### [facility] [address] [place], [place], [address] CNPLindy 01-28-2024 MARTHA Telephone (AGFAMPLE) GABRIELA VIDAL JR. ([id number]) 1990 M Date Time Provider Department 01/28/24 [...] Date Reviewed: 01/15/2024 Reviewed by: Shania Vieira APRN.PODODERMATOLOGIST - Fully Assessed Reason for Visit: Consult [502] Primary Visit Diagnosis:Acute pain of left shoulder [M25.512] Other Visit Diagnosis:Injury of left shoulder, initial encounter [S49.92XA] Order(s):CONSULT TO ORTHOPAEDICS [9011] Order #: [id number]: 1 FUTURE Prescriptions as of 01/28/2024 - [...] Status:Closed by SHANIA VIEIRA on 01/28/24 Normal [facility] Absolute lymphocyte countOrd ered By: Jose E Meier on 09-28-2023 Lymphocytes Auto (Unsp spec) [#/Vol] 1.95 10*3/uL 0.83-4.51 [facility] Automated lymphocyte count a s percentage of total leukocytesOrdered By: Jose E Meier on 09-28-2023 Lymphocytes/100 WBC Auto (Unsp spec) 19.5 % 19-41 [facility] Basophil percentageOrdered B y: Jose E Meier on 09-28-2023 Basophils/100 WBC (Bld) 0.5 % 0-1 [facility] Chloride [Moles/Vol] 113 mmol/L 98-107 [facility] Eosinophils/100 WBC (Bld) 0.3 % 0-5 [facility] Glucose [Mass/Vol] 114 mg/dL 74-106 [facility] Comment on above: Fasting Glucose resu lt from 100 to 125 mg/dL suggests IMPAIRED HOMEOSTASIS per A.D.A. criteria. Hemoglobin (Bld) [Mass/Vol] 14.9 g/dL 13.0-16.5 [facility] Monocytes/100 WBC (Bld) 5.9 % 0-10 W [facility] Neutrophils (Bld) [#/Vol] 7.3 10*3/uL 2.0-7.7 [facility] Neutrophils/100 WBC (Bld) 73.3 % 47-70 [facility] Potassium [Moles/Vol] 3.7 mmol/L 3.5-5.1 [facility] Sodium [Moles/Vol] 143 mmol/L 136-145 [facility] WBC (Bld) [#/Vol] 10.0 10*3/uL 4.4-11.[address] [facility] Determination of erythrocyte mean corpuscular volume (MCV)Ordered By: Jose E Meier on 09-28-2023 MCV (RBC) [Entitic vol] 89.6 fL 80-94 [facility] Erythrocyte distribution wid th ratioOrdered By: Jose E Meier on 09-28-2023 Erythrocyte distribution width (RBC) [Ratio] 12.3 % 11.6-14.6 [facility] Erythrocyte distribution wid th standard deviationOrdered By: Jose E Meier on 09-28-2023 Erythrocyte distribution width (RBC) [Entitic vol] 40.1 fL 35.1-43.9 [facility] Hematocrit Auto (Bld) [Volum e fraction]Ordered By: Jose E Meier on 09-28-2023 Hematocrit (Bld) [Volume fraction] 44.8 % 40-54 [facility] Immature granulocytes/100 WB C Auto (Bld)Ordered By: Jose E Meier on 09-28-2023 Immature granulocytes/100 WBC (Bld) 0.500 % 0.0-0.9 [facility] Comment on above: IG% - Immature Granu locytes (promyelocytes, myelocytes and metamyelocytes) > 1% indicates that a LEFT SHIFT is Present. Laboratory - Chemistry and C hemistry - challengeOrdered By: Jose E Meier on 09-28-2023 CO2 [Moles/Vol] 28.0 mmol/L 21.0-32.0 [facility] Urea nitrogen/Creatinine [Mass ratio] 15.7 mg/mg 10-20 [facility] Laboratory - Drug toxicology Ordered By: Jose E Meier on 09-28-2023 Amphetamines Ql (U) Negative <1000 ng/mL [facility] Benzodiazepines Ql (U) Negative < 200 ng/mL [facility] Cannabinoids Screen Ql (U) Positive < 50 ng/mL [facility] Cocaine Ql (U) Negative < 300 ng/mL [facility] Opiates Ql (U) Negative < 300 ng/mL [facility] Laboratory - Hematology and Cell countsOrdered By: Jose E Meier on 09-28-2023 MCH (RBC) [Entitic mass] 29.8 pg 27.0-32.0 [facility] MCHC (RBC) [Mass/Vol] 33.3 g/dL 32-36 [facility] Nucleated RBC/100 WBC (Bld) [Ratio] 0 % 0-5 [facility] Platelet mean volume (Bld) [Entitic vol] 10.8 fL 6.2-12.0 [facility] Platelets (Bld) [#/Vol] 256 10*3/uL 150-450 [facility] Laboratory - Microbiology an d Antimicrobial susceptibilityOrdered By: Jose E Meier on 09-28-2023 SARS-CoV-2 (COVID-19) RNA CARLOS+probe Ql (Unsp spec) [facility] No Panel InformationOrdered By: Jose E Meier on 09-28-2023 Estimated Creatinine Clearance Calc 105.36 ml/min [facility] Estimated GFR (MDRD) Amer 107 mL/min >60 [facility] Comment on above: GFR Calc Estimated GFR (MDRD) Non-Af Amer 88 mL/min >60 [facility] Comment on above: Non- GFR Calc Ethyl Alcohol Level 4.0 mg/dL [facility] Comment on above: The serum:whole bloo d ethanol ratio is approximately 1.14and varies slightly with hematocrit. Medical Alcohol reference interval and critical value innon-tolerant individuals; 50 - 100 Impairment 100 Intoxication 100 - 250 Severe Poisoning 250 - 400 Deep/possible fatal coma MDMA (Ecstasy) Screen Negative < 500 ng/mL [facility] Urine Barbiturates Screen Negative < 200 ng/mL [facility] Urine Drug Screen Comment [facility] Comment on above: CONFIRMATORY TESTING FOR [...] Methadone Screen Negative < 300 ng/mL [facility] RBC Auto (Bld) [#/Vol]Ordere d By: Jose E Meier on 09-28-2023 RBC (Bld) [#/Vol] 5.00 10*6/uL 4.6-6.[address] [facility] Serum or plasma calcium jacob urement (mass/volume)Ordered By: Jose E Meier on 09-28-2023 Calcium [Mass/Vol] 8.7 mg/dL 8.5-10.1 [facility] Serum or plasma creatinine m easurement (mass/volume)Ordered By: Jose E Meier on 09-28-2023 Creatinine [Mass/Vol] 1.02 mg/dL 0.70-1.30 [facility] Comment on above: The validity of the calculated GFR & GFRAA in patients over 70 years has not been determined. Clinical correlation is essential. Serum or plasma urea nitroge n measurement (mass/volume)Ordered By: Jose E Meier on 09-28-2023 Urea nitrogen [Mass/Vol] 16 mg/dL 7-18 [facility] Thin prep Papanicolaou smear with manual screeningOrdered By: Jose E Meier on 09-28-2023 Thin prep Papanicolaou smear with manual screening 2 5-15 [facility] Urine phencyclidine (PCP) de tectionOrdered By: Jose E Meier on 09-28-2023 Phencyclidine Ql (U) Negative < 25 ng/mL [facility] ALLIED HEALTHon 01-29-2023 ALLIED HEALTH HNO ID: [id number] Author: RT Latoya(R) Service: Radiology Author Type: Painter Supervisor Type: Allied Health Filed: 01/29/2023 1:10 PM [...] Latoya(R) January 29, 2023 1:10 PM Normal [facility] CBC W Auto Differential pane l (Bld)on 01-29-2023 Basophils (Bld) [#/Vol] 0.03 10*3/uL Normal <0.11 [facility] Comment on above: Order Comment: Speci men Type: BLOOD SPECIMEN Ordering Facility: [facility] Address: [address] [place] [address] Performed By: #### 5 7021-8 #### [facility] CLIA [id number] [address] [place] [address] [place] Basophils/100 WBC (Bld) 0.5 % Normal [facility] Comment on above: Order Comment: Speci men Type: BLOOD SPECIMEN Ordering Facility: [facility] Address: [address] [place] [address] Performed By: #### 5 7021-8 #### [facility] CLIA [id number] [address] [place] [address] [place] Differential cell count method Nom (Bld) Auto Normal [facility] Comment on above: Order Comment: Speci men Type: BLOOD SPECIMEN Ordering Facility: [facility] Address: [address] [address] Performed By: #### 5 7021-8 #### [facility] CLIA [id number] [place] [address] [place] Eosinophils (Bld) [#/Vol] 0.16 10*3/uL Normal <0.46 [facility] Comment on above: Order Comment: Speci men Type: BLOOD SPECIMEN Ordering Facility: [facility] Address: [address] [address] Performed By: #### 5 7021-8 #### [facility] CLIA [id number] [address] [place] [address] [place] Eosinophils/100 WBC (Bld) 2.4 % Normal [facility] Comment on above: Order Comment: Speci men Type: BLOOD SPECIMEN Ordering Facility: [facility] Address: [address] [place] [address] Performed By: #### 5 7021-8 #### [facility] CLIA [id number] [address] [place] [address] [place] Erythrocyte distribution width (RBC) [Ratio] 12.7 % Normal 11.5-15.0 [facility] Comment on above: Order Comment: Speci men Type: BLOOD SPECIMEN Ordering Facility: [facility] Address: [address] [place] [address] Performed By: #### 5 7021-8 #### [facility] CLIA [id number] [address] [place] [address] [place] Hematocrit (Bld) [Volume fraction] 39.3 % Normal 39.0-51.0 [facility] Comment on above: Order Comment: Speci men Type: BLOOD SPECIMEN Ordering Facility: [facility] Address: [address] [place] [address] Performed By: #### 5 7021-8 #### [facility] CLIA [id number] [place] [address] [place] Hemoglobin (Bld) [Mass/Vol] 13.1 g/dL Normal 13.0-17.0 [facility] Comment on above: Order Comment: Speci men Type: BLOOD SPECIMEN Ordering Facility: [facility] Address: [address] [place] [address] Performed By: #### 5 7021-8 #### [facility] CLIA [id number] [place] [address] [place] Immature granulocytes (Bld) [#/Vol] 0.03 10*3/uL Normal <0.10 [facility] Comment on above: Order Comment: Speci men Type: BLOOD SPECIMEN Ordering Facility: [facility] Address: [address] [place] [address] Performed By: #### 5 7021-8 #### [facility] IA [id number] [address] [place] [address] [place] Immature granulocytes/100 WBC (Bld) 0.5 % Normal [facility] Comment on above: Order Comment: Speci men Type: BLOOD SPECIMEN Ordering Facility: [facility] Address: [address] [place] [address] Performed By: #### 5 7021-8 #### [facility] IA [id number] [address] [place] [address] [place] Lymphocytes (Bld) [#/Vol] 3.11 10*3/uL Normal 1.00-4.00 [facility] Comment on above: Order Comment: Speci men Type: BLOOD SPECIMEN Ordering Facility: [facility] Address: [address] [place] [address] Performed By: #### 5 7021-8 #### [facility] CLIA [id number] [address] [place] [address] [place] Lymphocytes/100 WBC (Bld) 47.3 % Normal [facility] Comment on above: Order Comment: Speci men Type: BLOOD SPECIMEN Ordering Facility: [facility] Address: [address] [address] Performed By: #### 5 7021-8 #### [facility] CLIA [id number] [address] [place] [address] MCH (RBC) [Entitic mass] 30.0 pg Normal 26.0-34.0 [facility] Comment on above: Order Comment: Speci men Type: BLOOD SPECIMEN Ordering Facility: [facility] Address: [address] [address] Performed By: #### 5 7021-8 #### [facility] CLIA [id number] [address] [place] [address] [place] MCHC (RBC) [Mass/Vol] 33.3 g/dL Normal 30.5-36.0 [facility] Comment on above: Order Comment: Speci men Type: BLOOD SPECIMEN Ordering Facility: [facility] Address: [address] [address] Performed By: #### 5 7021-8 #### [facility] CLIA [id number] [address] [place] [address] [place] MCV (RBC) [Entitic vol] 90.1 fL Normal 80.0-100.0 [facility] Comment on above: Order Comment: Speci men Type: BLOOD SPECIMEN Ordering Facility: [facility] Address: [address] [address] Performed By: #### 5 7021-8 #### [facility] CLIA [id number] [address] [place] [address] [place] Monocytes (Bld) [#/Vol] 0.65 10*3/uL Normal <0.87 [facility] Comment on above: Order Comment: Speci men Type: BLOOD SPECIMEN Ordering Facility: [facility] Address: [address] [address] Performed By: #### 5 7021-8 #### [facility] CLIA [id number] [address] [place], [place] [address] [place] Monocytes/100 WBC (Bld) 9.9 % Normal [facility] Comment on above: Order Comment: Speci men Type: BLOOD SPECIMEN Ordering Facility: [facility] Address: [address] [place] [address] Performed By: #### 5 7021-8 #### [facility] CLIA [id number] [place] [address] [place] Neutrophils (Bld) [#/Vol] 2.59 10*3/uL Normal 1.45-7.50 [facility] Comment on above: Order Comment: Speci men Type: BLOOD SPECIMEN Ordering Facility: [facility] Address: [address] [place] [address] Performed By: #### 5 7021-8 #### [facility] CLIA [id number] [address] [place] [address] [place] Neutrophils/100 WBC (Bld) 39.4 % Normal [facility] Comment on above: Order Comment: Speci men Type: BLOOD SPECIMEN Ordering Facility: [facility] Address: [address] [place] [address] Performed By: #### 5 7021-8 #### [facility] CLIA [id number] [address] [place] [address] [place] Nucleated RBC (Bld) [#/Vol] 10*3/uL Normal <0.01 [facility] Comment on above: Order Comment: Speci men Type: BLOOD SPECIMEN Ordering Facility: [facility] Address: [address] [place] [address] Performed By: #### 5 7021-8 #### [facility] CLIA [id number] [address] [place] [address] [place] Nucleated RBC/100 WBC (Bld) [Ratio] 0.0 /100 WBC Normal [facility] Comment on above: Order Comment: Speci men Type: BLOOD SPECIMEN Ordering Facility: [facility] Address: [address] [place] [address] Performed By: #### 5 7021-8 #### [facility] CLIA [id number] [place] [address] [place] Platelet mean volume (Bld) [Entitic vol] 10.9 fL Normal 9.0-12.7 [facility] Comment on above: Order Comment: Speci men Type: BLOOD SPECIMEN Ordering Facility: [facility] Address: [address] [place] [address] Performed By: #### 5 7021-8 #### [facility] CLIA [id number] [place] [address] [place] Platelets (Bld) [#/Vol] 209 10*3/uL Normal 150-400 [facility] Comment on above: Order Comment: Speci men Type: BLOOD SPECIMEN Ordering Facility: [facility] Address: [address] [place] [address] Performed By: #### 5 7021-8 #### [facility] CLIA [id number] [address] [place] [address] [place] RBC (Bld) [#/Vol] 4.36 10*6/uL Normal 4.20-6.00 [facility] Comment on above: Order Comment: Speci men Type: BLOOD SPECIMEN Ordering Facility: [facility] Address: [address] [place] [address] Performed By: #### 5 7021-8 #### [facility] CLIA [id number] [address] [place] [address] [place] WBC (Bld) [#/Vol] 6.57 10*3/uL Normal 3.70-11.00 [facility] Comment on above: Order Comment: Speci men Type: BLOOD SPECIMEN Ordering Facility: [facility] Address: [address] [place] [address] Performed By: #### 5 7021-8 #### [facility] CLIA [id number] [address] [place] [address] [place] Comprehensive metabolic 2000 panelon 01-29-2023 Albumin [Mass/Vol] 3.6 g/dL Low 3.9-4.9 [facility] Comment on above: Order Comment: Speci men Type: BLOOD SPECIMEN Ordering Facility: [facility] Address: [address] [place] [address] Performed By: #### 1 9123-9, [id number], 41057-2 #### [facility] CLIA [id number] [place] [address] [place] ALP [Catalytic activity/Vol] 46 U/L Normal 38-113 [facility] Comment on above: Order Comment: Speci men Type: BLOOD SPECIMEN Ordering Facility: [facility] Address: [address] [place] [address] Performed By: #### 1 9123-9, [id number], 32058-0 #### [facility] CLIA [id number] [address] [place] [address] [place] ALT [Catalytic activity/Vol] 13 U/L Normal 10-54 [facility] Comment on above: Order Comment: Speci men Type: BLOOD SPECIMEN Ordering Facility: [facility] Address: [address] [place] [address] Performed By: #### 1 9123-9, [id number], 93960-4 #### [facility] CLIA [id number] [address] [place] [address] [place] Anion gap [Moles/Vol] 7 mmol/L Low 9-18 [facility] Comment on above: Order Comment: Speci men Type: BLOOD SPECIMEN Ordering Facility: [facility] Address: [address] [place] [address] Performed By: #### 1 9123-9, [id number], 56472-7 #### [facility] CLIA [id number] [place] [address] [place] AST [Catalytic activity/Vol] 16 U/L Normal 14-40 [facility] Comment on above: Order Comment: Speci men Type: BLOOD SPECIMEN Ordering Facility: [facility] Address: [address] Performed By: #### 1 23-9, [id number], #### [facility] CLIA [id number] [address] [place] [address] [place] Bilirubin [Mass/Vol] 0.4 mg/dL Normal 0.2-1.3 [facility] Comment on above: Order Comment: Speci men Type: BLOOD SPECIMEN Ordering Facility: [facility] Address: [address] [address] Performed By: #### 1 23-9, [id number], #### [facility] CLIA [id number] [address] [place] [address] [place] Calcium [Mass/Vol] 8.4 mg/dL Low 8.5-10.2 [facility] Comment on above: Order Comment: Speci men Type: BLOOD SPECIMEN Ordering Facility: [facility] Address: [address] [address] Performed By: #### 1 23-9, [id number], #### [facility] CLIA [id number] [address] [place] [address] [place] Chloride [Moles/Vol] 108 mmol/L High 97-105 [facility] Comment on above: Order Comment: Speci men Type: BLOOD SPECIMEN Ordering Facility: [facility] Address: [address] Performed By: #### 1 23-9, [id number], #### [facility] CLIA [id number] [address] [place] [address] [place] CO2 [Moles/Vol] 26 mmol/L Normal 22-30 [facility] Comment on above: Order Comment: Speci men Type: BLOOD SPECIMEN Ordering Facility: [facility] Address: [address] Performed By: #### 1 9123-9, [id number], #### [facility] CLIA [id number] [address] [place] [address] [place] Creatinine [Mass/Vol] 1.14 mg/dL Normal 0.73-1.22 [facility] Comment on above: Order Comment: Cristela ness Type: BLOOD SPECIMEN Ordering Facility: [facility] Address: [address] [place] [address] Performed By: #### 1 9123-9, [id number], 27241-2 #### [facility] CLIA [id number] [place] [address] [place] ESTIMATED GLOMERULAR FILTRATION RATE 87 mL/min/1.73m??? Normal >=60 [facility] Comment on above: Order Comment: Cristela ness Type: BLOOD SPECIMEN Ordering Facility: [facility] Address: [address] [place] [address] Result Comment: Cathy mated Glomerular Filtration Rate [...] actual GFR. Performed By: #### 1 9123-9, [id number], 53837-9 #### [facility] CLIA [id number] [address] [place] [address] [place] Glucose [Mass/Vol] 115 mg/dL High 74-99 [facility] Comment on above: Order Comment: Cristela ness Type: BLOOD SPECIMEN Ordering Facility: [facility] Address: [address] [place] [address] Result Comment: The [place] [employer] (ADA) provides guidance for cutoff [...] Standards of Medical Care in Diabetes 2016, [place] [employer]. Diabetes Care. 2016.39(Suppl 1). Performed By: #### 1 9123-9, [id number], #### [facility] CLIA [id number] [address] [place] [address] [place] Potassium [Moles/Vol] 4.1 mmol/L Normal 3.7-5.1 [facility] Comment on above: Order Comment: Speci men Type: BLOOD SPECIMEN Ordering Facility: [facility] Address: [address] [address] Performed By: #### 1 9123-9, [id number], #### [facility] CLIA [id number] [address] [place] [address] [place] Protein [Mass/Vol] 5.5 g/dL Low 6.3-8.0 [facility] Comment on above: Order Comment: Speci men Type: BLOOD SPECIMEN Ordering Facility: [facility] Address: [address] [place] [address] Performed By: #### 1 23-9, [id number], #### [facility] CLIA [id number] [address] [place] [address] [place] Sodium [Moles/Vol] 141 mmol/L Normal 136-144 [facility] Comment on above: Order Comment: Speci men Type: BLOOD SPECIMEN Ordering Facility: [facility] Address: [address] [place] [address] Performed By: #### 1 23-9, [id number], #### [facility] CLIA [id number] [address] [place] [address] [place] Urea nitrogen [Mass/Vol] 12 mg/dL Normal 9-24 [facility] Comment on above: Order Comment: Speci men Type: BLOOD SPECIMEN Ordering Facility: [facility] Address: [address] [place] [phone] Performed By: #### 1 9123-9, [id number], 68780-6 #### [facility] [place] [id number] [address] [place] [address] [place] [facility] ECG COMPLETEon 01-29-2023 ECG COMPLETE Ventricular Rate : 7 8 BPM Atrial Rate : 78 BPM P-R Interval : 160 ms QRS Duration : 122 ms Q-T Interval : 374 ms QTC Calculation(Bazett) : 426 ms Calculated P Teachey : 64 degrees Calculated R Te[place]y : 82 degrees Calculated T Teachey : 49 degrees Sinus rhythm IVCD, consider atypical RBBB ST elevation suggests acute pericarditis Abnormal ECG no stemi Confirmed by ERIK DAVIS MD ([id number]), metropolitan editor SUZI BRUNO ([id number]) on 01/30/2023 10:18:17 AM NAME : GABRIELA VIDAL PID : [id number] : 1990 Gender : Male Race : ORD : [id number] Procedure Date : Jan 29 2023 12:34:12 Edit Date : Jan 30 2023 10:18:21 Diagnosis: Sinus rhythm IVCD, consider atypical RBBB ST elevation suggests acute pericarditis Abnormal ECG no stemi Confirmed by ERIK DAVIS MD ([id number]), metropolitan editor SUZI BRUNO ([id number]) on 01/30/2023 10:18:17 AM Test Reason : Chest Pain Location : 18 : ED [id number] Overread By : ERIK DAVIS MD Edited By : SUZI BRUNO Referred By : , Acquired by : , [facility] ED NOTEon 01-29-2023 ED NOTE HNO ID: [id number] Author: Juliana Aguilera, ANDRES Service: Nursing Author [...] Pt ambulatory with steady gait on departure. [facility] ED NOTE HNO ID: [id number] Author: Juliana Aguilera RN Service: Nursing Author [...] up, bed in locked and low position [facility] ED NOTE HNO ID: [id number] Author: Anabel Hernandez RN Service: ? Author Type: Registered Nurse Type: ED Notes Filed: 01/29/2023 12:23 PM Note Text: Bed: ED-13 Expected date: Expected time: Means of arrival: Comments: EMS [facility] ED PROV NOTEon 01-29-2023 ED PROV NOTE HNO ID: [id number] Author: Erik Davis MD Service: Emergency Medicine [...] nursing note reviewed. Exam conducted with a single stroke preformer present. Constitutional: General: He is not in [...] intact. Motor: Motor function is intact. Coordination: Uxwaao-Ekcw-Cutlsk Test normal. Gait: Gait is intact. Psychiatric: [...] Final Result IMPRESSION: No acute radiographic abnormality. Sewage Disposal Worker: PSCB Transcribe Date/Time: Jan 29 2023 1:19P [...] per minute AXIS: Normal axis INTERVALS: Normal LA interval QRS COMPLEX: Normal ST SE (more content not included)... Normal [facility] HIGH SENSITIVITY TROPONIN T (INITIAL)on 01-29-2023 HIGH SENSITIVITY SHEBA 7 ng/L Normal <12 [facility] Comment on above: Order Comment: Speci men Type: BLOOD SPECIMENOrdering Facility: [facility] Address: [address] [place] [phone] Result Comment: When assessing risk for acute [...] day MACE. Performed By: #### 1 9123-9, [id number], 60952-3 ####[facility] [id number] [address] [id number] [place] HIGH SENSITIVITY TROPONIN T (SECOND)on 01-29-2023 HIGH SENSITIVITY SHEBA <6 Normal <12 [facility] Comment on above: Order Comment: Cristela ness Type: BLOOD SPECIMEN Ordering Facility: [facility] Address: [address] [address] Result Comment: When assessing risk for acute [...] 30 day MACE. Performed By: #### L [id number] #### [facility] CLIA [id number] [address] [place] [address] [place] Magnesium SerPl-mCncon 01-29 Magnesium [Mass/Vol] 1.9 mg/dL Normal 1.7-2.3 [facility] Comment on above: Order Comment: Cristela ness Type: BLOOD SPECIMENOrdering Facility: [facility] Address: [address] [place] [address] Performed By: #### 1 9123-9, [id number], 08741-3 ####[facility]ORY[facility] [id number] [place] [address] [place] No Panel Informationon 01-29 IMPRESSION: Mild acromioclavicular degenerative changes. Sewage Disposal Worker: YAIMA Transcribe Date/Time: Jan 29 2023 2:37P Dictated by : BROOK NELSON MD This examination was interpreted and the report reviewed and electronically signed by: BROOK NELSON MD on Guillermo 3 2023 2:38PM EST DIVISION OF RADIOLOGY Radiology Study observation (narrative) [facility] No Panel InformationOrdered By: Ccf Provider on 01-29-2023 [facility] XR CHEST 2V FRONTAL/LATon XR CHEST [...] tissues: Unremarkable. IMPRESSION: No acute radiographic abnormality. Sewage Disposal Worker: PSCB Transcribe Date/Time: Jan 29 2023 1:19P Dictated by : DEVEN CHAPMAN MD This examination was interpreted and the report reviewed and electronically signed by: DEVEN CHAPMAN MD on Jan 29 2023 1:20PM EST [id number] [facility] XR SHLDR >/=3V AP/ALESSANDRO AP/OTH R [...] >/=3V AP/ALESSANDRO AP/OTHR LT Laterality: RIGHT (accession [id number]), LEFT (accession [id number]) Number of different views (projections): 3 M: XB_1 COMPARISON: RESULT: Mild acromioclavicular degenerative changes bilaterally. Maintained glenohumeral joints bilaterally. Imaged lungs appear to be clear. No acute fracture or dislocation. There are no bony erosions. IMPRESSION: Mild acromioclavicular degenerative changes. Sewage Disposal Worker: [facility] Transcribe Date/Time: Jan 29 2023 2:37P Dictated by : BROOK NELSON MD This examination was interpreted and the report reviewed and electronically signed by: BROOK NELSON MD on Jan 29 2023 2:38PM EST [id number] Normal [facility] XR SHLDR >/=3V AP/ALESSANDRO AP/OTH R [...] >/=3V AP/ALESSANDRO AP/OTHR LT Laterality: RIGHT (accession [id number]), LEFT (accession [id number]) Number of different views (projections): 3 M: XB_1 COMPARISON: RESULT: Mild acromioclavicular degenerative changes bilaterally. Maintained glenohumeral joints bilaterally. Imaged lungs appear to be clear. No acute fracture or dislocation. There are no bony erosions. IMPRESSION: Mild acromioclavicular degenerative changes. Sewage Disposal Worker: [facility] Transcribe Date/Time: Jan 29 2023 2:37P Dictated by : BROOK NELSON MD This examination was interpreted and the report reviewed and electronically signed by: BROOK NELSON MD on Jan 29 2023 2:38PM EST [id number] Normal [facility] XR Shoulder - left 3 Viewson [...] >/=3V AP/ALESSANDRO AP/OTHR LT Laterality: RIGHT (accession [id number]), LEFT (accession [id number]) Number of different views (projections): 3 M: XB_1 COMPARISON: RESULT: Mild acromioclavicular degenerative changes bilaterally. Maintained glenohumeral joints bilaterally. Imaged lungs appear to be clear. No acute fracture or dislocation. There are no bony erosions. DIVISION OF RADIOLOGY Provider, [facility] - 01/29/2023 * * *Final Report* [...] >/=3V AP/ALESSANDRO AP/OTHR LT Laterality: RIGHT (accession [id number]), LEFT (accession [id number]) Number of different views (projections): 3 M: XB_1 COMPARISON: RESULT: Mild acromioclavicular degenerative changes bilaterally. Maintained glenohumeral joints bilaterally. Imaged lungs appear to be clear. No acute fracture or dislocation. There are no bony erosions. IMPRESSION IMPRESSION: Mild acromioclavicular degenerative changes. Sewage Disposal Worker: PSCB Transcribe Date/Time: Jan 29 2023 2:37P Dictated by : BROOK NELSON MD This examination was interpreted and the report reviewed and electronically signed by: BROOK NELSON MD on Jan 29 2023 2:38PM EST [facility] XR Shoulder - right 3 Viewso [...] >/=3V AP/ALESSANDRO AP/OTHR LT Laterality: RIGHT (accession [id number]), LEFT (accession [id number]) Number of different views (projections): 3 M: XB_1 COMPARISON: RESULT: Mild acromioclavicular degenerative changes bilaterally. Maintained glenohumeral joints bilaterally. Imaged lungs appear to be clear. No acute fracture or dislocation. There are no bony erosions. DIVISION OF RADIOLOGY Provider, [facility] - 01/29/2023 * * *Final Report* [...] >/=3V AP/ALESSANDRO AP/OTHR LT Laterality: RIGHT (accession [id number]), LEFT (accession [id number]) Number of different views (projections): 3 M: XB_1 COMPARISON: RESULT: Mild acromioclavicular degenerative changes bilaterally. Maintained glenohumeral joints bilaterally. Imaged lungs appear to be clear. No acute fracture or dislocation. There are no bony erosions. IMPRESSION IMPRESSION: Mild acromioclavicular degenerative changes. Sewage Disposal Worker: PSCB Transcribe Date/Time: Jan 29 2023 2:37P Dictated by : BROOK NELSON MD This examination was interpreted and the report reviewed and electronically signed by: BROOK NELSON MD on Jan 29 2023 2:38PM EST [facility] UA DIP, URINE (POC)on 2022 BILIRUBIN UA (POCT) Negative Negative [facility] CLARITY UA (POCT) Clear [facility] COLOR UA (POCT) Yellow [facility] GLUCOSE UA (POCT) Negative Negative mg/dL [facility] HEMOGLOBIN/BLOOD UA (POCT) Negative Negative [facility] KETONE UA (POCT) Negative Negative mg/dL [facility] LEUKOCYTES UA (POCT) Negative Negative [facility] NITRITE UA (POCT) Negative Negative [facility] [place] PH UA (POCT) 5.5 4.5 - 8.0 [facility] Protein Ql (U) Negative Negative mg/dL [facility] SPECIFIC GRAVITY UA (POCT) >=1.030 1.005 - 1.030 [facility] UROBILINOGEN UA (POCT) 0.2 E.U./dL Skyla l E.U./dL [facility] Provider Note - ED v3on 11-27 [...] by speech recognition technology. Minor errors in battery wrecker operator may be present. HISTORY OF PRESENTING ILLNESS [...] Review Statu (more content not included)... Normal [facility] Triage - EDon 2022 Triage - ED Chart Review: ARRIVAL INFORMATION Mode of Arrival: ambulance Agency Name: [place] CHIEF COMPLAINT GABRIELA VIDAL is a Male [...] 11-Dec-2022 21:00 by Dina Wood (RN PRN) [facility] ED NOTEon 01-03-2022 ED NOTE HNO ID: [id number] Author: Darcie Gary RN Service: Nursing Author [...] ambulated off ED in no distress. [facility] ED NOTE HNO ID: [id number] Author: Nuvia George RN Service: ? Author Type: Registered Nurse Type: ED Notes Filed: 01/03/2022 11:51 AM Note Text: Pt presents to the ED with CC of a known dental infection for the past 2 years that has turned into an abscess, pt went to [place] yesterday where they attempted to drain the abscess and started him on oral antibiotics, pt now reports swelling is worse and to the point of his eye swelling shut [facility] ED PROV NOTEon 01-03-2022 ED PROV NOTE HNO ID: [id number] Author: Aysha Poole MD Service: ? Author [...] swelling 2 days ago. He went to [place] emergency department was placed on amoxicillin. He [...] alert and (more content not included)... Normal [facility] XR SHOULDER 2V AP/TRUE AP [...] otherwise maintained. No acute fracture or dislocation. Sewage Disposal Worker: YAIMA Transcribe Date/Time: Sep 09 2020 9:58A Dictated by : XAVI OLIVER MD This examination was interpreted and the report reviewed and electronically signed by: XAVI OLIVER MD on Sep 09 2020 10:09AM EST Normal [facility] CT CHEST WO IVCONon 08-02-19 CT CHEST WO IVCON Final Report DATE OF EXAM: Aug 02 2020 5:04PM [facility] 0541 - CT CHEST WO IVCON / [...] abnormality identified in the imaged upper abdomen. Meat Grading Machine Operator (topogram) images: No additional findings. IMPRESSION: Interval resolution of right lower lobe consolidation/pneumonia . No acute findings in the chest. Sewage Disposal Worker: YAIMA Transcribe Date/Time: Aug 02 2020 6:06P Dictated by : LACI MENDOZA MD This examination was interpreted and the report reviewed and electronically signed by: LACI MENDOZA MD on Aug 02 2020 6:17PM EST Normal [facility] XR CHEST 2V FRONTAL/LATon XR CHEST [...] to ensure resolution and exclude a neoplasm. Sewage Disposal Worker: YAIMA Transcribe Date/Time: May 17 2020 5:34P Dictated by : JUAN AYERS MD This examination was interpreted and the report reviewed and electronically signed by: JUAN AYERS MD on May 17 2020 5:35PM EST Normal [facility] T. Vaginalis Amplificationon 02-10-2020 T. Vaginalis Amplification SEE BELOW Normal [facility] Comment on above: Result Comment: Tric h vag Amp Source Urine Corrected on 02/08 AT 1722: Previously reported as URINE T vag Amplification SEE BELOW Negative for Trichomonas vaginalis by amplification This test was developed and its performance characteristics determined by [facility]'s Gabriela Esteban [facility] Pathology and Laboratory Medicine [place] ( [place]). It has not been cleared or approved by the FDA. [facility] is regulated under CLIA as qualified to perform high complexity testing. This test is used for clinical purposes. It should not be regarded as investigational or for research. Performing Laboratory: [facility] [address] [place] [address] Performed By: #### T RVAX #### [facility] [address] [place], [place] [address] GC/Chlam Urine Ampon 020 CT Amplification, Ur CT neg Normal [facility] Comment on above: Result Comment: Nega tive for Chlamydia trachomatis by amplification. Performed By: #### G CTUP #### [facility] [address] [place], [place] [address] GC Amplification, Ur GC neg Normal [facility] Comment on above: Result Comment: Nega tive for Neisseria gonorrhoeae by amplification. Performed By: #### G CTUP #### [facility] [address] [place], [place] [address] GC/Chlam Urine Ampon 020 GC/Chlam Urine Amp Source Urine Normal [facility] Comment on above: Performed By: #### G CTUP #### [facility] [address] [place], [place] [address] XR LUMBAR 3V AP/LAT/L5-S1on 02-02-2020 XR LUMBAR [...] are seen. IMPRESSION: No acute traumatic abnormality Sewage Disposal Worker: YAIMA Transcribe Date/Time: Feb 02 2020 1:49P Dictated by : LINDA RAMÍREZ MD This examination was interpreted and the report reviewed and electronically signed by: LINDA RAMÍREZ MD on Feb 02 2020 1:54PM EST Normal [facility] Chlamydia and GC PCR Panelon 02-09-2018 [...] as suspected child abuse or molestation. Normal [facility] Comment on above: Order Comment: Speci men Source Comment:Urine voided Performed By: #### C TNGP ####[facility] [id number] [place] [address] CR Abdomen Series w/ Chest 1 Viewon 02-08-2018 CR Abdomen Series w/ Chest 1 View Patient Name: GABRIELA VIDAL Jr Diagnostic Radiology Exam Date/Time 02/08/2018 11:55:40 EDT Exam CR Abdomen Series w/ Chest 1 View Ordering Physician DO GONCALVES KIMBERLY D. Accession Number [id number] CPT4 Codes 33965 () Reason For Exam abdominal pain and [...] Transcribed Date and Time: 02/08/2018 1:03 Normal [facility] Comp Metabolic Panelon 02-08 Calcium 9.2 mg/dL Normal 8.4-10.4 [facility] Comment on above: Performed By: #### H YOLANDA CMP3 ####[address] [place] [address] Alanine aminotransferase (ALT) 19 U/L Normal 13-69 [facility] Comment on above: Performed By: #### H YOLANDA CMP3 ####[address] [place] [address] Alkaline phosphatase (ALP) 45 U/L Normal 38-126 [facility] Comment on above: Performed By: #### H YOLANDA CMP3 ####[address] [place] [address] Anion gap 9 Normal [facility] Comment on above: Performed By: #### H YOLANDA CMP3 ####[address] [place] [address] Aspartate aminotransferase (AST) 22 U/L Normal 15-46 [facility] Comment on above: Performed By: #### H YOLANDA CMP3 ####[address] [place] [address] Bilirubin (total) 0.5 mg/dL Normal 0.2-1.3 [facility] Comment on above: Performed By: #### H YOLANDA CMP3 ####[address] [place] [address] CO2 28 mmol/L Normal 22-30 [facility] Comment on above: Performed By: #### H YOLANDA CMP3 ####[address] [place] [address] Creatinine 1.19 mg/dL Normal 0.52-1.25 [facility] Comment on above: Performed By: #### H YOLANDA CMP3 ####[place] [id number] [place] [address] eGFR (black) mL/min/{1.73_m2} Normal >60 [facility] Comment on above: Performed By: #### H YOLANDA CMP3 ####[place] [id number] [place] [address] eGFR (non-black) mL/min/{1.73_m2} Normal >60 [facility] Comment on above: Result Comment: Sour ce- MDRD equation with creatinine calibration to IDMS(NKDEP) eGFR not recommended for drug dose adjustment Performed By: #### H YOLANDA CMP3 ####[address] [place] [address] Glucose mass conc 98 mg/dL Normal 70-100 [facility] Comment on above: Performed By: #### H YOLANDA CMP3 ####[address] [place] [address] Protein 6.9 g/dL Normal 6.3-8.2 [facility] Comment on above: Performed By: #### H YOLANDA CMP3 ####[place] [id number] [place] [address] Urea nitrogen 10 mg/dL Normal 7-20 [facility] Comment on above: Performed By: #### H YOLANDA CMP3 ####[address] [place] [address] Potassium molar conc 4.2 mmol/L Normal 3.5-5.1 [facility] Comment on above: Performed By: #### H YOLANDA CMP3 ####[place] [id number] [place] [address] Albumin 4.2 g/dL Normal 3.5-5.0 [facility] Comment on above: Performed By: #### H YOLANDA CMP3 ####[address] [place] [address] Chloride 106 mmol/L Normal 98-107 [facility] Comment on above: Performed By: #### H YOLANDA CMP3 ####[address] [address] Sodium 144 mmol/L Normal 137-145 [facility] Comment on above: Performed By: #### H YOLANDA CMP3 ####[address] [address] Hemogram w/ Autodiffon 02-08 Abs Baso Cnt 0.0 10*3/uL Normal 0.0-0.2 [facility] Comment on above: Performed By: #### H YOLANDA CMP3 ####[address] [address] Abs Neutrophile Cnt 4.4 10*3/uL Normal 1.8-7.0 [facility] Comment on above: Performed By: #### H YOLANDA CMP3 ####[address] [address] Basophils/100 WBC Auto (Bld) 0.5 % Normal 0.0-2.0 [facility] Comment on above: Performed By: #### H YOLANDA CMP3 ####[address] [address] Eosinophils 0.2 10*3/uL Normal 0.0-0.5 [facility] Comment on above: Performed By: #### H YOLANDA CMP3 ####[address] [address] Eosinophils/100 leukocytes 2.5 % Normal 1.0-6.0 [facility] Comment on above: Performed By: #### H YOLANDA CMP3 ####[address] [address] Erythrocyte distribution width Auto Ratio (RBC) 13.0 % Normal 11.5-14.5 [facility] Comment on above: Performed By: #### H YOLANDA CMP3 ####[address] [address] Erythrocytes (RBC) 5.31 10*6/uL Normal 4.40-5.90 [facility] Comment on above: Performed By: #### H YOLANDA CMP3 ####[address] [address] Granulocytes/100 WBC (Bld) 54.6 % Normal 40.0-80.0 [facility] Comment on above: Performed By: #### H YOLANDA CMP3 ####[place] [id number] [place] [address] Hematocrit (HCT) 48.8 % Normal 40.0-52.0 [facility] Comment on above: Performed By: #### H EMDHafsa CMP3 ####[place] [address] [place] [address] Hemoglobin mass conc (Bld) 16.7 g/dL Normal 13.0-18.0 [facility] Comment on above: Performed By: #### H YOLANDA CMP3 ####[place] [id number] [place] [address] Lymphocytes 2.6 10*3/uL Normal 1.0-4.3 [facility] Comment on above: Performed By: #### H EMDHafsa CMP3 ####[address] [place] [address] Lymphocytes/100 leukocytes 32.5 % Normal 20.0-40.0 [facility] Comment on above: Performed By: #### H YOLANDA CMP3 ####[address] [place] [address] MCH 31.4 pg Normal 26.0-34.0 [facility] Comment on above: Performed By: #### H EMDHafsa CMP3 ####[address] [place] [address] MCHC mass conc (RBC) 34.2 % Normal 32.0-36.0 [facility] Comment on above: Performed By: #### H YOLANDA CMP3 ####[address] [place] [address] MCV 91.8 fL Normal 80.0-98.0 [facility] Comment on above: Performed By: #### H EMDHafsa CMP3 ####[place] [address] [place] [address] Monocytes 0.8 10*3/uL Normal 0.0-0.8 [facility] Comment on above: Performed By: #### H YOLANDA CMP3 ####[place] [id number] [place] [address] Monocytes/100 leukocytes 9.9 % Normal 2.0-10.0 [facility] Comment on above: Performed By: #### H YOLANDA CMP3 ####[place] [id number] [place] [address] Platelet mean volume (PMV) 10.2 fL Normal 7.4-10.4 [facility] Comment on above: Performed By: #### H YOLANDA CMP3 ####[place] [id number] [place] [address] Platelets 195 10*3/uL Normal 140-440 [facility] Comment on above: Performed By: #### H YOLANDA CMP3 ####[place] [address] [place] [address] WBC (Leukocytes) 8.0 10*3/uL Normal 3.6-10.7 [facility] Comment on above: Performed By: #### H YOLANDA CMP3 ####[address] [place] [address] Urinalysis,Macroon 8 Appearance Clear Normal Clear [facility] Comment on above: Performed By: #### U AMAC, UAMIC ####[address] [place] [address] Bilirubin,Ur 1 + Normal Negative [facility] Comment on above: Performed By: #### U AMAC, UAMIC ####[address] [place] [address] Color Yellow Normal Lt. Yellow [facility] Comment on above: Performed By: #### U AMAC, UAMIC ####[place] [id number] [place] [address] Ketone,Urine Negative Normal Negative [facility] Comment on above: Performed By: #### U AMAC, UAMIC ####[place] [id number] [place] [address] Leukocytes Negative Normal Negative [facility] Comment on above: Performed By: #### U AMAC, UAMIC ####[address] [place] [address] Nitrites Negative Normal Negative [facility] Comment on above: Performed By: #### U AMAC, UAMIC ####[address] [place] [address] Occult Blood,Ur Negative Normal Negative [facility] Comment on above: Performed By: #### U AMAC, UAMIC ####[place] [id number] [place] [address] Specific [place],Urine 1.020 Normal 1.005-1.030 [facility] Comment on above: Performed By: #### U AMAC, UAMIC ####[address] [place] [address] Total Protein,Urine Negative Normal Negative [facility] Comment on above: Performed By: #### U AMAC, UAMIC ####[address] [place] [address] Urine, glucose presence NEG (Normal) Normal Negative [facility] Comment on above: Performed By: #### U AMAC, UAMIC ####[address] [place] [address] Urine, pH 6.5 Normal 5.0-8.0 [facility] Comment on above: Performed By: #### U AMAC, UAMIC ####[address] [place] [address] Urobilinogen Normal (0.2) Normal 0-1 [facility] Comment on above: Performed By: #### U AMAC, UAMIC ####[address] [place] [address] Urinalysis,Microscopicon Amorphous Urates Moderate (6-50) Normal Negative [facility] Comment on above: Performed By: #### U AMAC, UAMIC ####[address] [place] [address] Bacteria Few (1-5) Normal Negative [facility] Comment on above: Performed By: #### U AMAC, UAMIC ####[address] [place] [address] Ca Oxylate Crystals Few (1-5) Normal Negative [facility] Comment on above: Performed By: #### U AMAC, UAMIC ####[address] [place] [address] Epithelial Cells Negative Normal 3-5 [facility] Comment on above: Performed By: #### U AMAC, UAMIC ####[facility] [id number] [place] [address] Urine, erythrocytes in sediment by area Negative Normal 0-2 [facility] Comment on above: Performed By: #### U AMAC, UAMIC ####[facility] [id number] [address] Urine, leukocytes in sedmiment 0 - 2 Normal 0-5 [facility] Comment on above: Performed By: #### U AMAC, UAMIC ####[facility] [id number] [place] [address] Volume,Urine 12 ml Normal [facility] Comment on above: Performed By: #### U AMAC, UAMIC ####[facility] [id number] [place] [address] Vital Signs Date Time Vital Sign Value Performing Clinician Facility 01-21-2025 21:53-0400 Body temperature 100 [degF] Shania Queden DISTRICT ADMINISTRATOR-C Work Phone: [facility] 01-21-2025 21:53-0400 Diastolic blood pressure 83 mm[Hg] Shania Queden DISTRICT ADMINISTRATOR-C Work Phone: [facility] 01-21-2025 21:53-0400 Heart rate 118 /min Shania Queden DISTRICT ADMINISTRATOR-C Work Phone: [facility] 01-21-2025 21:53-0400 Respiratory rate 18 /min Shania Queden DISTRICT ADMINISTRATOR-C Work Phone: [facility] 01-21-2025 21:53-0400 SaO2% (BldA) [Mass fraction] 100 % Shania Queden DISTRICT ADMINISTRATOR-C Work Phone: [facility] 01-21-2025 21:53-0400 Systolic blood pressure 130 mm[Hg] Shania Queden DISTRICT ADMINISTRATOR-C Work Phone: [facility] 01-21-2025 16:05-0400 Body height 175.26 cm Shania Queden DISTRICT ADMINISTRATOR-C Work Phone: [facility] 01-21-2025 16:05-0400 Body mass index (BMI) [Ratio] 27 kg/m2 Shania Queden DISTRICT ADMINISTRATOR-C Work Phone: [facility] 01-21-2025 16:05-0400 Body weight 83 kg Shania Queden DISTRICT ADMINISTRATOR-C Work Phone: [facility] 01-07-2025 09:57-0400 Body temperature 97.3 [degF] Shania Queden DISTRICT ADMINISTRATOR-C Work Phone: [facility] 01-07-2025 09:57-0400 Diastolic blood pressure 99 mm[Hg] Shania Queden DISTRICT ADMINISTRATOR-C Work Phone: [facility] 01-07-2025 09:57-0400 Heart rate 90 /min Shania Queden DISTRICT ADMINISTRATOR-C Work Phone: [facility] 01-07-2025 09:57-0400 Respiratory rate 16 /min Shania Queden DISTRICT ADMINISTRATOR-C Work Phone: [facility] 01-07-2025 09:57-0400 SaO2% (BldA) [Mass fraction] 99 % Shania Queden DISTRICT ADMINISTRATOR-C Work Phone: [facility] 01-07-2025 09:57-0400 Systolic blood pressure 101 mm[Hg] Shania Queden DISTRICT ADMINISTRATOR-C Work Phone: [facility] 01-07-2025 08:42-0400 Body height 175.26 cm Shania Queden DISTRICT ADMINISTRATOR-C Work Phone: [facility] 01-07-2025 08:42-0400 Body mass index (BMI) [Ratio] 27.1 kg/m2 Shania Queden DISTRICT ADMINISTRATOR-C Work Phone: [facility] 01-07-2025 08:42-0400 Body weight 83.41 kg Shania Queden DISTRICT ADMINISTRATOR-C Work Phone: [facility] 01-15-2024 14:37-0400 Body height 177.8 cm Shania Queden TELEPHONE DIAPHRAGM ASSEMBLER.PODODERMATOLOGIST Work Phone: [facility] 01-15-2024 14:37-0400 Body mass index (BMI) [Ratio] 24.54 kg/m2 Shania Queden TELEPHONE DIAPHRAGM ASSEMBLER.PODODERMATOLOGIST Work Phone: [facility] 01-15-2024 14:37-0400 Body temperature 97.9 [degF] Shania Queden TELEPHONE DIAPHRAGM ASSEMBLER.PODODERMATOLOGIST Work Phone: [facility] 01-15-2024 14:37-0400 Body weight 77.56 kg Shania Queden TELEPHONE DIAPHRAGM ASSEMBLER.PODODERMATOLOGIST Work Phone: [facility] 01-15-2024 14:37-0400 Diastolic blood pressure 62 mm[Hg] Shania Queden TELEPHONE DIAPHRAGM ASSEMBLER.PODODERMATOLOGIST Work Phone: [facility] 01-15-2024 14:37-0400 Heart rate 98 /min Shania Queden TELEPHONE DIAPHRAGM ASSEMBLER.PODODERMATOLOGIST Work Phone: [facility] 01-15-2024 14:37-0400 Respiratory rate 18 /min Shania Queden TELEPHONE DIAPHRAGM ASSEMBLER.PODODERMATOLOGIST Work Phone: [facility] 01-15-2024 14:37-0400 SaO2% (BldA) [Mass fraction] 99 % Shania Queden TELEPHONE DIAPHRAGM ASSEMBLER.PODODERMATOLOGIST Work Phone: [facility] 01-15-2024 14:37-0400 Systolic blood pressure 122 mm[Hg] Shania Queden TELEPHONE DIAPHRAGM ASSEMBLER.PODODERMATOLOGIST Work Phone: [facility] 09-29-2023 06:49-0500 Body temperature 97.8 [degF] [facility] 09-29-2023 06:49-0500 Diastolic blood pressure 72 mm[Hg] [facility] 09-29-2023 06:49-0500 Heart rate 71 /min [facility] 09-29-2023 06:49-0500 Respiratory rate 16 /min [facility] 09-29-2023 06:49-0500 SaO2% (BldA) [Mass fraction] 98 % [facility] 09-29-2023 06:49-0500 Systolic blood pressure 122 mm[Hg] [facility] 09-28-2023 17:12-0500 Body height 177.[address] [facility] 09-28-2023 17:12-0500 Body mass index (BMI) [Ratio] 26.5 kg/m2 [facility] 09-28-2023 17:12-0500 Body weight 83.[address] [facility] 04-09-2023 10:29-0400 Body height 177.8 cm Gilda Zavala APRN.PODODERMATOLOGIST Work Phone: [facility] 04-09-2023 10:29-0400 Body temperature 97.81 [degF] Gilda Zavala TELEPHONE DIAPHRAGM ASSEMBLER.PODODERMATOLOGIST Work Phone: [facility] 04-09-2023 10:29-0400 Body weight 82.1 kg Gilda Zavala APRN.PODODERMATOLOGIST Work Phone: [facility] 04-09-2023 10:29-0400 Diastolic blood pressure 76 mm[Hg] Gilda Zavala APRN.PODODERMATOLOGIST Work Phone: [facility] 04-09-2023 10:29-0400 Heart rate 92 /min Gilda Zavala APRN.PODODERMATOLOGIST Work Phone: [facility] 04-09-2023 10:29-0400 SaO2% (BldA) [Mass fraction] 93 % Gilda Zavala APRN.PODODERMATOLOGIST Work Phone: [facility] 04-09-2023 10:29-0400 Systolic blood pressure 120 mm[Hg] Gilda Zavala APRN.PODODERMATOLOGIST Work Phone: [facility] 12-29-2022 16:55-0400 Body height 177.8 cm Shania Vieira TELEPHONE DIAPHRAGM ASSEMBLER.PODODERMATOLOGIST Work Phone: [facility] 12-29-2022 16:55-0400 Body temperature 97.9 [degF] Shania Vieira TELEPHONE DIAPHRAGM ASSEMBLER.PODODERMATOLOGIST Work Phone: [facility] 12-29-2022 16:55-0400 Body weight 79.83 kg Shania Vieira TELEPHONE DIAPHRAGM ASSEMBLER.PODODERMATOLOGIST Work Phone: [facility] 12-29-2022 16:55-0400 Diastolic blood pressure 74 mm[Hg] Shania Butlerden TELEPHONE DIAPHRAGM ASSEMBLER.PODODERMATOLOGIST Work Phone: [facility] 12-29-2022 16:55-0400 Heart rate 91 /min Shania Queden TELEPHONE DIAPHRAGM ASSEMBLER.PODODERMATOLOGIST Work Phone: [facility] 12-29-2022 16:55-0400 SaO2% (BldA) [Mass fraction] 97 % Shania Queden TELEPHONE DIAPHRAGM ASSEMBLER.PODODERMATOLOGIST Work Phone: [facility] 12-29-2022 16:55-0400 Systolic blood pressure 120 mm[Hg] Shania Butlerden TELEPHONE DIAPHRAGM ASSEMBLER.PODODERMATOLOGIST Work Phone: [facility] 12-12-2022 00:10-0400 Diastolic blood pressure 77 mm[Hg] No Pcp Required [facility] Other Phone (unformatted): [phone] 12-12-2022 00:10-0400 Heart rate 96 /min No Pcp Required [facility] Other Phone (unformatted): [phone] 12-12-2022 00:10-0400 Respiratory rate 18 /min No Pcp Required [facility] Other Phone (unformatted): [phone] 12-12-2022 00:10-0400 SaO2% (BldA) [Mass fraction] 100 % No Pcp Required [facility] Other Phone (unformatted): [phone] 12-12-2022 00:10-0400 Systolic blood pressure 113 mm[Hg] No Pcp Required [facility] Other Phone (unformatted): [phone] 2022 22:57-0400 Body height 180.3 cm No Pcp Required [facility] Other Phone (unformatted): [phone] 2022 22:57-0400 Body temperature 96.8 [degF] No [facility] Other Phone (unformatted): [phone] 2022 22:57-0400 Body weight 84 kg No Pcp Required [facility] Other Phone (unformatted): [phone] 05-18-2019 15:46-0400 BMI (Body Mass Index) 26.54 kg/m2 [facility] [place] 05-18-2019 15:46-0400 Body Temperature 98.6 [degF] [place], [place] 05-18-2019 15:46-0400 Body weight 83.92 kg [place], [place] 05-18-2019 15:46-0400 BP Diastolic 79 mm[Hg] [place] 05-18-2019 15:46-0400 BP Systolic 118 mm[Hg] [place] 05-18-2019 15:46-0400 Pulse (Heart Rate) 94 /min [place], [place] 05-18-2019 15:46-0400 Pulse Oximetry 99 % [place] 05-18-2019 15:46-0400 Respiratory Rate 20 /min [place] Encounters Encounter Date Encounter Type Care Provider Facility Start: 01-21-2025 Evaluation and manag ement of inpatient Dr. Zechariah Bruno MD -Medical Surgical 3 Work Phone: Start: 01-12-2025 End: 01-12-2025 ambulatory Shania Vieira APRN.CNP Work Phone: [facility] Start: 01-12-2025 End: 01-12-2025 Follow-up encounter Shania Vieira APRN.PODODERMATOLOGIST Work Phone: [facility] Comment on above: ED Follow-up ([facility] ED 01/07/2025) Start: 01-07-2025 End: 01-07-2025 Emergency department patient visit Shania Vieira DISTRICT ADMINISTRATOR-C Work Phone: -Emergency Department Work Phone: Start: 04-21-2024 End: 04-23-2024 Patient Outreach Estephania Lemos [facility] Comment on above: Transition Of Care ( Pt was admitted to [place] on 04/18/2024 for ISABELLA, COVID-19. Pt was d/c on 04/19/2024) Start: 04-18-2024 ambulatory Shaniaklaus Vieira DISTRICT ADMINISTRATOR Facil ity:[facility] Start: 04-18-2024 End: 04-19-2024 Evaluation and management of inpatient Shania Vieira DISTRICT ADMINISTRATOR Facility:[facility] Start: 04-17-2024 End: 04-17-2024 Emergency department patient visit Shania Vieira DISTRICT ADMINISTRATOR Facility:[facility] Start: 01-28-2024 Telephone encounter Shania Vieira TELEPHONE DIAPHRAGM ASSEMBLER.PODODERMATOLOGIST Work Phone: [facility] Comment on above: Consult Start: 01-15-2024 End: 01-15-2024 Patient encounter procedure Shania Vieira TELEPHONE DIAPHRAGM ASSEMBLER.PODODERMATOLOGIST Work Phone: [facility] Comment on above: Schizoaffective diso rder, unspecified type (HCC) (Primary Dx); Adult ADHD; Auditory hallucinations; Acute psychosis (HCC); Marijuana use; Financial difficulties; Acute pain of left shoulder; Living in temporary quarters Start: 12-21-2023 Telephone encounter Shania A Isha TELEPHONE DIAPHRAGM ASSEMBLER.PODODERMATOLOGIST Work Phone: [facility] Comment on above: Appointment Start: 12-17-2023 ambulatory Estephania Lemos LPN [facility] Start: 10-02-2023 ambulatory Humera Gillis MA [facility] Comment on above: ed outreach (Ed outr each/09/28/2023/[place] ) Start: 09-28-2023 End: 09-29-2023 Emergency department patient visit [facility] Work Phone: Start: 07-03-2023 ambulatory Shania Butlerd en TELEPHONE DIAPHRAGM ASSEMBLER.PODODERMATOLOGIST Work Phone: [facility] Comment on above: ED Outreach ([place] [facility] 07/01/23) Start: 05-17-2023 ambulatory Shanae Bustamante MA [facility] Start: 04-11-2023 ambulatory Humera Gillis MA [facility] Comment on above: ED outreach (ED outr each /[place] /04/07/2023 ) Start: 04-09-2023 End: 04-09-2023 Patient encounter procedure Gilda Zavala TELEPHONE DIAPHRAGM ASSEMBLER.PODODERMATOLOGIST Work Phone: [facility] Comment on above: Cellulitis of right lower leg (Primary Dx); Itching Start: 01-29-2023 End: 01-29-2023 Emergency department patient visit SHANIAKLAUS BUTLERJOSHUA Facility:[facility] Start: 01-29-2023 End: 01-29-2023 ambulatory SHANIA VIEIRA Facility:[facility] Start: 01-29-2023 End: 01-29-2023 Subsequent hospital visit by physician [facility] Comment on above: Pain [R52] Start: 01-18-2023 Orders Only Humera Hernandez bobby TELEPHONE DIAPHRAGM ASSEMBLER.PODODERMATOLOGIST Work Phone: [facility] [place] Comment on above: Pain (Primary Dx) Start: 01-01-2023 Telephone encounter Shania Vieira TELEPHONE DIAPHRAGM ASSEMBLER.PODODERMATOLOGIST Work Phone: [facility] Comment on above: Results Start: 12-29-2022 End: 12-29-2022 Patient encounter procedure Shania Macie Isha TELEPHONE DIAPHRAGM ASSEMBLER.PODODERMATOLOGIST Work Phone: [facility] Comment on above: Dysuria (Primary Dx) ; Exposure to STD Start: 2022 End: 12-12-2022 Emergency department patient visit Damion Perdue [facility] Other Phone (unformatted): [phone] Start: 08-24-2022 ambulatory Shania Quijano Qued en TELEPHONE DIAPHRAGM ASSEMBLER.PODODERMATOLOGIST [facility] Start: 08-24-2022 Follow-up encounter Shania Vieira TELEPHONE DIAPHRAGM ASSEMBLER.PODODERMATOLOGIST Work Phone: [facility] Comment on above: ED Follow Up ([place] [facility] D discharge 08/21/2022 ED outreach ) Start: 01-06-2022 ambulatory Shania Quijano Qued en TELEPHONE DIAPHRAGM ASSEMBLER.PODODERMATOLOGIST Work Phone: [facility] Start: 05-18-2019 End: 05-18-2019 Emergency department patient visit [facility] Comment on above: Encounter for wound re-check (Primary Dx) Start: 02-08-2018 Emergency department patient visit Torrie Goncalves [facility] Procedures Date Procedure Procedure Detail Performing Clinician Start: 01-21-2025 Computed tomography of abdomen and pelvis with intravenous contrast Shania Vieira DISTRICT ADMINISTRATOR-C Work Phone: Start: 01-21-2025 Estimated creatinine clearance Shania Vieira DISTRICT ADMINISTRATOR-C Work Phone: Start: 01-21-2025 Urnls dip stick/tabl et reagent auto microscopy Shania Vieira DISTRICT ADMINISTRATOR-C Work Phone: Start: 09-28-2023 Coronavirus COVID-19 PCR Start: 01-29-2023 Radex shoulder compl ete minimum 2 views Humera Martinez Meredith TELEPHONE DIAPHRAGM ASSEMBLER.PODODERMATOLOGIST Work Phone: Start: 12-29-2022 Urnls dip stick/tabl et rgnt auto w/o microscopy Shania Vieira TELEPHONE DIAPHRAGM ASSEMBLER.PODODERMATOLOGIST Work Phone: Start: 08-24-2020 Adult depression scr eening assessment Shania Vieira TELEPHONE DIAPHRAGM ASSEMBLER.PODODERMATOLOGIST Work Phone: Plan of Treatment Date Care Activity Detail Author Start: 07-01-2033 Urine microalbumin profile DTaP,Tdap,Td Vaccine (8 - Td or Tdap) [facility] Start: 03-30-2025 Influenza vaccination Influenz a Vaccine (Season Ended) [facility] Start: 01-21-2025 Hospital admission, emergency, from emergency room, medical nature [facility] Start: 01-21-2025 Verification routine [facility] Start: 01-21-2025 Admission procedure [facility] Start: 03-30-2024 Covid-19 Vaccine ( season) Covid-19 Vaccine ( season) [facility] Start: 03-30-2024 Covid-19 Vaccine ( season) Covid-19 Vaccine ( season) [facility] Start: 03-30-2024 Influenza [facility] Start: 02-20-2024 End: 02-20-2024 Patient encounter procedure 02/20/2024 2:00 PM EDT Office Visit Orthopaedics [address] [place] [address] Gisella De Santiago DO [address] [place] [address] shoulder pain, bycicle incident 01/02/24 [facility] Comment on above: shoulder pain, bycic le incident 01/02/24 [facility] Start: 01-15-2024 End: 01-15-2024 Patient encounter procedure 01/15/2024 2:20 PM EDT Office Visit [facility] [address] [place] [address] Shania Vieira, TELEPHONE DIAPHRAGM ASSEMBLER.PODODERMATOLOGIST [address] [place], [place] [id number] [facility] Start: 12-30-2023 COVID-19 VACCINE (#1) COVID-19 VACCI NE (#1) [facility] Comment on above: Postponed from 06/13 (Declined at this time) Start: 12-12-2023 Lipid panel Lipid Screening [facility] Start: 09-29-2023 [facility] Start: 09-28-2023 Suicide precautions [facility] Start: 07-30-2023 Behavioral Health Screening Behavioral Health Screening [facility] Start: 07-30-2023 [facility] Assessment [facility] Start: 07-29-2023 Depression Assessment [facility] Comment on above: Postponed from 07/30 (Declined at this time) Start: 03-30-2023 Covid-19 Vaccine ( season) Covid-19 Vaccine ( season) [facility] Start: 03-30-2023 Influenza vaccination [facility] Start: 12-29-2022 End: 02-28-2023 SYPHILIS TOTAL W/REFLEX SYPHILIS TOTAL W/REFLEX Lab Routine Exposure to STD Expected: 12/29/2022, Expires: 02/28/2023 [facility] Work Phone: Comment on above: Expected: 12/29/2022 , Expires: 02/28/2023 Start: 07-30-2022 DEPRESSION ASSESSMENT DEPRESSION ASS ESSMENT [facility] Start: 03-30-2022 Influenza vaccination [facility] Start: 08-24-2021 Adult depression screening assessment DEPRESSION SCREENING [facility] Start: 11-11-2020 Urine microalbumin profile [facility] Start: 03-30-2019 Influenza vaccination Flu vaccine (# 1) [place], [place] Start: 12-12-2007 Pneumococcal vaccination Pneumococcal Vaccine (1 of 2 - PCV) [facility] Start: 12-12-2007 Urine microalbumin profile DTAP,TDAP,TD (1 - Tdap) [facility] Start: 2006 Anxiety Screening Anxiety Screening [facility] Start: 2006 Depression Screening Depression Scre ening [facility] Start: 2006 HEPATITIS C SCREENING HEPATITIS C [facility] Start: 2006 Hepatitis C screening Hepatitis C [facility] Start: 2006 HIV SCREENING HIV SCREENING [facility] Start: 2006 HIV screening HIV Screening [facility] Start: 1994 PNEUMOCOCCAL (1 - PCV) PNEUMOCOCCAL (1 - PCV) [facility] Start: 1994 Pneumococcal vaccination [facility] Start: 1993 COVID-19 VACCINE (#1) COVID-19 VACCI NE (#1) [facility] Start: 06-13-1989 COVID-19 VACCINE (#1) COVID-19 VACCI NE (#1) [facility] Start: 1988 HEPATITIS B (1 of 3 - 3-dose series) HEPATITIS B (1 of 3 - 3-dose series) [facility] Chlamydia trachomatis+Neisseria gonorrhoeae DNA [Presence] in Urine by CARLOS with probe detection GC/CHLAMYDIA AMPLIF, URINE Microbiology Routine Exposure to STD 12/29/2022 5:06 PM EDT [facility] Work Phone: Patient Education ED Cellulitis [facility] Work Phone: Patient referral [facility] Work Phone: T VAGINALIS AMPLIFICATION T VAGINALIS AMPLIFICATION Lab Routine Exposure to STD 12/29/2022 5:02 PM EDT [facility] Work Phone: UA DIP, URINE (POC) UA DIP, URIN E (POC) Lab Routine Dysuria Ordered: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 [id number] Name: GABRIELA VIDAL Jr. Rep #:[id number] : 1990 34 From: Stephan Burk MD [...] Shania Vieira NP Referrals: Shania Vieira NP, DISTRICT ADMINISTRATOR-C [Primary Care Provider] - 3-5 Days if not improving Activity Restrictions/Additional Instructions: Take the antibiotic Augmentin 1 pill twice a day till gone. Motrin for pain and swelling and Tylenol for pain. Ice and elevate. Follow-up or return if getting worse. Are not improving. Print Language: Turkmen Disposition Disposition: Home, Self Care What to do if you have Problems For any increased pain, shortness of breath, bleeding, nausea or vomiting, chestpain, or any unexpected problems, contact your Primary Care Provider. Call [facility] ([phone]) or report to the closest Emergency Room. Call 911 if necessary. 01/07/25 9451 <Electronically signed by Stephan Burk MD> Cosigner Signature (if applicable): CC: DISTRICT ADMINISTRATORDioni Vieira ~ Signed [facility] Work Phone: Evaluation note* Diagnosis Dysuria- Primary Exposure to STD Contact with or exposure to other communicable diseases documented in this encounter [facility] note* Diagnosis Pain- Primary Generalized pain documented in this encounter [facility] note* Diagnosis Cellulitis of right lower leg- Primary Cellulitis and abscess of leg, except foot Itching Unspecified pruritic disorder documented in this encounter [facility] noteNo assessment information availableWHocking Valley Community Hospital Work Phone: Evaluation note* Diagnosis Schizoaffective disorder, unspecified type (HCC)- Primary Adult ADHD Attention deficit disorder with hyperactivity Auditory hallucinations Hallucinations Acute psychosis (HCC) Unspecified psychosis Marijuana use Cannabis abuse, unspecified Financial difficulties Inadequate material resources Acute pain of left shoulder Living in temporary quarters Other specified housing or economic circumstances documented in this encounter [facility] note* Diagnosis Acute pain of left shoulder- Primary Injury of left shoulder, initial encounter documented in this encounter [facility] note* Diagnosis Pain Generalized pain [facility] Additional Instructions Take the antibiotic Augmentin 1 pill twice a day till gone. Motrin for pain and swelling and Tylenol for pain. Ice and elevate. Follow-up or return if getting worse. Are not improving.[facility] Work Phone: Reason for referral (narrative)* Diagnostic Procedure Only (Routine) - Authorized Specialty Diagnoses / Procedures Referred By Sarahiac julián Referred To Contact XR IMAGING Diagnoses Pain Procedures XR SHOULDER GENERAL 3V OR MORE AP/TRUE AP/OTHER LEFT RADEX SHOULDER COMPLETE MINIMUM 2 VIEWS Humera Harper APRN.CNP [address] [place] [address] Xr Imaging Referral ID Status Reason Start Date Expiration Date Visits Requested Visits Authorized [id number] Authorized Auto-Generat ed Referral 01/18/2023 02/17/2024 1 1 * Diagnostic Procedure Only (Routine) - Authorized Specialty Diagnoses / Procedures Referred By Contac t Referred To Contact XR IMAGING Diagnoses Pain Procedures XR SHOULDER GENERAL 3V OR MORE AP/TRUE AP/OTHER RIGHT RADEX SHOULDER COMPLETE MINIMUM 2 VIEWS Humera Harper APRN.PODODERMATOLOGIST [address] [place] [address] Xr Imaging Referral ID Status Reason Start Date Expiration Date Visits Requested Visits Authorized [id number] Authorized Auto-Generat ed Referral 01/18/2023 02/17/2024 1 1 [facility] for referral (narrative)* Diagnostic Procedure Only (Routine) - Closed Specialty Diagnoses / Procedures Referred By Contac t Referred To Contact XR IMAGING Diagnoses Pain Procedures XR SHOULDER GENERAL 3V OR MORE AP/TRUE AP/OTHER LEFT RADEX SHOULDER COMPLETE MINIMUM 2 VIEWS Humera Harper APRN.PODODERMATOLOGIST [address] [place] [place] [id number] [place] [address] Referral ID Status Reason Start Date Expiration Date V isits Requested Visits Authorized [id number] Closed Auto-Generate d Referral 01/18/2023 02/17/2024 1 1 * Diagnostic Procedure Only (Routine) - Closed Specialty Diagnoses / Procedures Referred By Contac t Referred To Contact XR IMAGING Diagnoses Pain Procedures XR SHOULDER GENERAL 3V OR MORE AP/TRUE AP/OTHER RIGHT RADEX SHOULDER COMPLETE MINIMUM 2 VIEWS Humera Harper APRN.PODODERMATOLOGIST [address] [place] [address] [place] [address] Referral ID Status Reason Start Date Expiration Date V isits Requested Visits Authorized [id number] Closed Auto-Generate d Referral 01/18/2023 02/17/2024 1 1 [facility] for referral (narrative)No reason for referral information availableWHocking Valley Community Hospital Work Phone: Summary Purpose Family History Relationship Condition Age at Onset Recorded Date/T geo mother Kidney disorder Unknown father Malignant neoplasm Unknown Advance Directives Documents on File Type Date Recorded 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 No January 07, 2025 8:41am Advance Directive Response Recorded Date/ Time Do you have a Healthcare Power of Stone Mill Operator? No January 07, 2025 8:41am Do you have a Healthcare Power of Stone Mill Operator? No January 21, 2025 5:05pm Discharge Instructions * Attachments The following attachments cannot be sent through Care Everywhere. * Wound Check (Turkmen) documented in this encounter Assessments Diagnosis Encounter [...] quarters Procedures CONSULT TO SOCIAL WORK AG (PELLET PRESS OPERATOR) Shania Vieira, TELEPHONE DIAPHRAGM ASSEMBLER.PODODERMATOLOGIST [address] [place] [address] Referral ID Status Reason Start Date Expiration Date Visits Requested Visits Authorized [id number] Ref Not Required PCP Requested Referral 01/15/2024 04/14/2024 3 3 Specialty Diagnoses / Procedures Referred By Briana gallego Referred To Contact Orthopedics / [facility] DEPARTMENT Diagnoses Acute pain of left shoulder Injury of left shoulder, initial encounter Procedures CONSULT TO ORTHOPAEDICS OFFICE/OUTPATIENT [facility] 60 MINUTES Shania Vieira APRN.PODODERMATOLOGIST [address] [place] [address] Angel Vaz MD [address] [address] Referral ID Status Reason Start Date Expiration Date Visits Requested Visits Authorized [id number] Authorized PCP Requested Referral 01/28/2024 01/27/2025 1 1 Additional Source Comments (unrecognized sect ion and content) No Status Records FoundNo Status Records FoundNo Status Records FoundNo Status Records FoundNo Status Records FoundNo Status Records FoundNo Status Records FoundNo Status Records Found INFORMATION SOURCE (unrecogn ized section and content) DATE CREATED AUTHOR 02/09/2018 [facility] DATE CREATED AUTHOR AUTHOR'S ORGANIZ ATION 01/07/2021 [facility] DATE CREATED AUTHOR AUTHOR'S ORGANIZ ATION 01/07/2022 [facility] DATE CREATED AUTHOR AUTHOR'S ORGANIZ ATION 01/30/2023 [facility] DATE CREATED AUTHOR AUTHOR'S ORGANIZ ATION 02/06/2023 [facility] DATE CREATED AUTHOR AUTHOR'S ORGANIZ ATION 06/03/2023 [facility] DATE CREATED AUTHOR AUTHOR'S ORGANIZ ATION 01/09/2025 [facility] DATE CREATED AUTHOR AUTHOR'S ORGANIZ ATION 01/14/2025 [facility] Reason for Visit (unrecogniz ed section and content) Reason Comments Wound Check Reason Onset Date Comments ED Follow Up 08/24/2022 [place] [facility] discharg e 08/21/2022 ED outreach Reason Comments STD Wants to be checked for STD . GIRL called and said she had gonorrhea and jazmine. Feels tight clamminess per. Pt. And itches. X 1 month Reason Comments Results Reason Onset Date Comments ED outreach 04/11/2023 ED outreach [place] 04/07/2023 Reason Comments Rash Bilateral legs x 1 w eeks. Hurts Leg Pain X 1 week. Bilateral Reason Onset Date Comments ED Outreach 07/03/2023 [place] [facility] 07/01/23 Reason Onset Date Comments ed outreach 10/02/2023 Ed outreach [id number] Reason Comments Appointment Reason Comments Establish Care Reason Comments Consult Reason Comments Radio Gen RMP Specialty Diagnoses / Procedures Referred By Contac t Referred To Contact XR IMAGING Diagnoses Pain Procedures XR SHOULDER GENERAL 3V OR MORE AP/TRUE AP/OTHER LEFT RADEX SHOULDER COMPLETE MINIMUM 2 VIEWS Humera Harper, TELEPHONE DIAPHRAGM ASSEMBLER.PODODERMATOLOGIST [address] [place] [address] Xr Imaging [place] [id number] Referral ID Status Reason Start Date Expiration Date V isits Requested Visits Authorized [id number] Closed Auto-Generate d Referral 01/18/2023 02/17/2024 1 1 Reason Onset Date Comments Transition Of Care 04/21/2024 Pt was admitt ed to [facility] on 04/18/2024 for ISABELLA, COVID-19. Pt was d/c on 04/19/2024 Reason Onset Date Comments ED Follow-up 01/07/2025 [facility] [facility] 2024 Source Comments (unrecognize d section and content) In the event this informatio n is protected by the Federal Confidentiality of Alcohol and Drug Abuse Patient Records regulations: The Federal rules restrict any use of the information to criminally investigate or prosecute any alcohol or drug abuse patient.[facility] the event this information is protected by the Federal Confidentiality of Alcohol and Drug Abuse Patient Records regulations: The Federal rules restrict any use of the information to criminally investigate or prosecute any alcohol or drug abuse patient.[facility] the event this information is protected by the Federal Confidentiality of Alcohol and Drug Abuse Patient Records regulations: The Federal rules restrict any use of the information to criminally investigate or prosecute any alcohol or drug abuse patient.[facility] the event this information is protected by the Federal Confidentiality of Alcohol and Drug Abuse Patient Records regulations: The Federal rules restrict any use of the information to criminally investigate or prosecute any alcohol or drug abuse patient.[facility] the event this information is protected by the Federal Confidentiality of Alcohol and Drug Abuse Patient Records regulations: The Federal rules restrict any use of the information to criminally investigate or prosecute any alcohol or drug abuse patient.[facility] the event this information is protected by the Federal Confidentiality of Alcohol and Drug Abuse Patient Records regulations: The Federal rules restrict any use of the information to criminally investigate or prosecute any alcohol or drug abuse patient.[facility] the event this information is protected by the Federal Confidentiality of Alcohol and Drug Abuse Patient Records regulations: The Federal rules restrict any use of the information to criminally investigate or prosecute any alcohol or drug abuse patient.[facility] the event this information is protected by the Federal Confidentiality of Alcohol and Drug Abuse Patient Records regulations: The Federal rules restrict any use of the information to criminally investigate or prosecute any alcohol or drug abuse patient.[facility] the event this information is protected by the Federal Confidentiality of Alcohol and Drug Abuse Patient Records regulations: The Federal rules restrict any use of the information to criminally investigate or prosecute any alcohol or drug abuse patient.[facility] the event this information is protected by the Federal Confidentiality of Alcohol and Drug Abuse Patient Records regulations: The Federal rules restrict any use of the information to criminally investigate or prosecute any alcohol or drug abuse patient.[facility] the event this information is protected by the Federal Confidentiality of Alcohol and Drug Abuse Patient Records regulations: The Federal rules restrict any use of the information to criminally investigate or prosecute any alcohol or drug abuse patient.[facility] Hospital[facility] the event this information is protected by the Federal Confidentiality of Alcohol and Drug Abuse Patient Records regulations: The Federal rules restrict any use of the information to criminally investigate or prosecute any alcohol or drug abuse patient.[facility] Hospital[facility] the event this information is protected by the Federal Confidentiality of Alcohol and Drug Abuse Patient Records regulations: The Federal rules restrict any use of the information to criminally investigate or prosecute any alcohol or drug abuse patient.[facility] Hospital[facility] the event this information is protected by the Federal Confidentiality of Alcohol and Drug Abuse Patient Records regulations: The Federal rules restrict any use of the information to criminally investigate or prosecute any alcohol or drug abuse patient.[facility] Hospital[facility] the event this information is protected by the Federal Confidentiality of Alcohol and Drug Abuse Patient Records regulations: The Federal rules restrict any use of the information to criminally investigate or prosecute any alcohol or drug abuse patient.[facility] Hospital[facility] the event this information is protected by the Federal Confidentiality of Alcohol and Drug Abuse Patient Records regulations: The Federal rules restrict any use of the information to criminally investigate or prosecute any alcohol or drug abuse patient.[facility] Hospital[facility] the event this information is protected by the Federal Confidentiality of Alcohol and Drug Abuse Patient Records regulations: The Federal rules restrict any use of the information to criminally investigate or prosecute any alcohol or drug abuse patient.[facility] Care Teams (unrecognized sec tion and content) Labor Utilization Superintendent Relationship Specialty Start Date End Date Shania Vieira, [place].[facility] [address] [place] [address] PCP - General Family Practice 05/17/20 Labor Utilization Superintendent Relationship Specialty Start Date End Date Shania Vieira, TELEPHONE DIAPHRAGM ASSEMBLER.PODODERMATOLOGIST [address] [place] [address] PCP - General Family Medicine 05/17/20 Labor Utilization Superintendent Relationship Specialty Start Date End Date Shania Vieira, TELEPHONE DIAPHRAGM ASSEMBLER.PODODERMATOLOGIST [address] [place] [address] PCP - General Family Medicine 05/17/20 Labor Utilization Superintendent Relationship Specialty Start Date End Date Shania Vieira, TELEPHONE DIAPHRAGM ASSEMBLER.PODODERMATOLOGIST [address] [place] [address] PCP - General Family Medicine 05/17/20 Labor Utilization Superintendent Relationship Specialty Start Date End Date Shania Vieira, TELEPHONE DIAPHRAGM ASSEMBLER.PODODERMATOLOGIST [address] [facility] [place] [address] PCP - General Family Medicine 05/17/20 Labor Utilization Superintendent Relationship Specialty Start Date End Date Shania Vieira, TELEPHONE DIAPHRAGM ASSEMBLER.PODODERMATOLOGIST [address] [place] [address] PCP - General Family Medicine 05/17/20 Labor Utilization Superintendent Relationship Specialty Start Date End Date Shania Vieira, TELEPHONE DIAPHRAGM ASSEMBLER.PODODERMATOLOGIST [address] [facility] [place] [address] PCP - General Family Medicine 05/17/20 Labor Utilization Superintendent Relationship Specialty Start Date End Date Shania Vieira, TELEPHONE DIAPHRAGM ASSEMBLER.PODODERMATOLOGIST [address] [place] [address] PCP - General Family Medicine 05/17/20 Labor Utilization Superintendent Relationship Specialty Start Date End Date Shania Vieira, TELEPHONE DIAPHRAGM ASSEMBLER.PODODERMATOLOGIST [address] [place], [place] [id number] PCP - General Family Medicine 05/17/20 Team Status: Active Member Role Status Dates No Primary Care Physician Primary Care Provider Active Team Status: Inactive Member Role Status Dates Dr. Jose E Meier DO Emergency Provider Active No Primary Care Physician Primary Care Provider Active Labor Utilization Superintendent Relationship Specialty Start Date End Date Shania Vieira, TELEPHONE DIAPHRAGM ASSEMBLER.PODODERMATOLOGIST [address] [place] [address] PCP - General Family Medicine 01/15/24 Labor Utilization Superintendent Relationship Specialty Start Date End Date Shania Vieira TELEPHONE DIAPHRAGM ASSEMBLER.PODODERMATOLOGIST [address] [place], [place] [id number] PCP - General Family Medicine 01/15/24 Labor Utilization Superintendent Relationship Specialty Start Date End Date Shania Vieira, TELEPHONE DIAPHRAGM ASSEMBLER.PODODERMATOLOGIST [address] [place], [place] [id number] PCP - General Family Medicine 05/17/20 12/16/23 Labor Utilization Superintendent Relationship Specialty Start Date End Date Shania Vieira, TELEPHONE DIAPHRAGM ASSEMBLER.PODODERMATOLOGIST [address] [place] [address] PCP - General Family Medicine 01/15/24 Team Status: Active Member Role Status Dates Shania Vieira DISTRICT ADMINISTRATOR, DISTRICT ADMINISTRATOR-C Primary Care Provider Active Team Status: Inactive Member Role Status Dates Shania Vieira DISTRICT ADMINISTRATOR, DISTRICT ADMINISTRATOR-C Primary Care Provider Active Start: January 07, 2025 End: January 07, 2025 Dr. Stephan Burk MD Emergency Provider Active S tart: January 07, 2025 End: January 07, 2025 Labor Utilization Superintendent Relationship Specialty Start Date End Date Shania Vieira TELEPHONE DIAPHRAGM ASSEMBLER.PODODERMATOLOGIST [address] [place] [address] PCP - General Family Medicine 01/15/24 Team Status: Inactive Member Role Status Dates Shania Vieira DISTRICT ADMINISTRATOR, DISTRICT ADMINISTRATOR-C Primary Care Provider Active Start: January 07, 2025 End: January 07, 2025 Dr. Stephan Burk MD Attending Provider Active S tart: January 07, 2025 End: January 07, 2025 Dr. Stephan Burk MD Emergency Provider Active S tart: January 07, 2025 End: January 07, 2025 Team Status: Active Member Role Status Dates Shania Vieira DISTRICT ADMINISTRATOR, DISTRICT ADMINISTRATOR-C Primary Care Provider Active Start: January 21, [...] BE BASED ON THE PRIMARY CLINICAL RECORDS. [facility] [employer] [facility]. provides no warranty or guarantee of the accuracy or completeness of information in this document.
[2025-01-22 05:15] VITALS: BP 134/82; PULSE 81; RESP 16; TEMP 36.6; O2SAT 100
--- OUTSIDE RECORDS SUMMARY | 2025-01-22 06:02 | XMS RPT_ITS | CCD ---
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 High 2.0-7.7 [facility] Comment on above: Performed By: #### M 100.637, M100.6796 #### [facility] [address] [place], [address] Basophils/100 WBC (Bld) 0.1 % Normal 0-1 [facility] Comment on above: Performed By: #### M 100.637, M100.6796 #### [facility] [address] [place], [address] Eosinophils/100 WBC (Bld) 0.0 % Normal 0-5 [facility] Comment on above: Performed By: #### M 100.637, M100.6796 #### [facility] [address] [place], [address] Erythrocyte distribution width (RBC) [Ratio] 13.3 % Normal 11.6-14.6 [facility] Comment on above: Performed By: #### M 100.637, M100.6796 #### [facility] [address] [place], [address] Hematocrit (Bld) [Volume fraction] 43.8 % Normal 40-54 [facility] Comment on above: Performed By: #### M 100.637, M196 #### [facility] [address] [place], [address] Hemoglobin (Bld) [Mass/Vol] 14.8 g/dL Normal 13.0-16.5 [facility] Comment on above: Performed By: #### M 100.637, #### [facility] [address] [place], [address] IG% 0.400 Normal 0.0-0.9 [facility] Comment on above: Result Comment: IG% - Immature Granulocytes (promyelocytes, myelocytes and metamyelocytes) > 1% indicates that a LEFT SHIFT is Present. Performed By: #### M 100.637, 96 #### [facility] [address] [place], [address] Lymphocytes/100 WBC (Bld) 6.3 % Low 19-41 [facility] Comment on above: Performed By: #### M 100.637, 96 #### [facility] [address] [place], [address] MCH (RBC) [Entitic mass] 29.5 pg Normal 27.0-32.0 [facility] Comment on above: Performed By: #### M 100.637, 96 #### [facility] [address] [place], [address] MCHC (RBC) [Mass/Vol] 33.8 g/dL Normal 32-36 [facility] Comment on above: Performed By: #### M 100.637, 96 #### [facility] [address] [place], [address] MCV (RBC) [Entitic vol] 87.3 fL Normal 80-94 [facility] Comment on above: Performed By: #### M 100.637, M1.96 #### [facility] [address] [place], [address] Monocytes/100 WBC (Bld) 2.0 % Normal 0-10 [facility] Comment on above: Performed By: #### M 100.637, .96 #### [facility] [address] [place], [address] Neutrophils/100 WBC (Bld) 91.2 % High 47-70 [facility] Comment on above: Performed By: #### M 100.637, 96 #### [facility] [address] [place], [address] Nucleated RBC (Bld) [#/Vol] 0 10*3/uL Normal 0-5 [facility] Comment on above: Performed By: #### M 100.637, .96 #### [facility] [address] [place], [address] Platelet mean volume (Bld) [Entitic vol] 10.2 fL Normal 6.2-12.0 [facility] Comment on above: Performed By: #### M 100.637, .96 #### [facility] [address] [place], [address] Platelets (Bld) [#/Vol] 269 10*3/uL Normal 150-450 [facility] Comment on above: Performed By: #### M 100.637, M1.96 #### [facility] [address] [place], [address] RBC (Bld) [#/Vol] 5.02 10*6/uL Normal 4.6-6.2 [facility] Comment on above: Performed By: #### M 100.637, M100.6796 #### [facility] [address] [place], [address] RDW SD 42.8 fl Normal 35.1-43.9 [facility] Comment on above: Performed By: #### M 100.637, M100.6796 #### [facility] [address] [place], [address] WBC (Bld) [#/Vol] 16.6 10*3/uL High 4.4-11.0 [facility] Comment on above: Performed By: #### M 100.637, M100.6796 #### [facility] [address] [place], [address] SMEAR COMMENT SCANNED Normal [facility] Comment on above: Result Comment: NEUT ROPHILLIA PRESENT Performed By: #### L 100.0100, L501.2450, L500.2500, L500.3400, L501.5200 #### [facility] [address] [place], [address] CDIFF (PCR)on 04-18-2024 CDIFF Is the patient receiving laxatives? N New/unexplained onset of 3 or more stools in past 24 hrs? Y Pending 027 027 NAP1-B1 Presumptive Negative *for epidemiolologic???use C. Diff PCR Negative- No toxigenic C. Diff Detected Normal [facility] Comment on above: Performed By: #### M 100.637, M100.6796 #### [facility] [address] [place], [address] CPK Total, Creatine Kinaseon 04-18-2024 CPK TOTAL 790 U/L High 39-308 [facility] Comment on above: Order Comment: Comme nts: add to ED labs Performed By: #### L 501.0080 #### [facility] [address] [place], [address] CRPon 04-18-2024 C-REACTIVE PROT 2.95 mg/L Normal 0.0-3.0 [facility] Comment on above: Order Comment: Comme nts: May add to ED labsmay add to ED labs Result Comment: C-Re active Protein (CRP) provides useful information for the diagnosis, therapy and monitoring of inflammatory processes and associated diseases. For the evaluation of Relative Risk for Cardiovascular Disease, a High Sensitivity CRP (HSCRP) should be ordered. Performed By: #### M 100.637, M100.6796 #### [facility] [address] [place], [address] Comprehensive Metabolic Prof ilon 04-18-2024 Albumin [Mass/Vol] 3.8 g/dL Normal 3.2-5.0 [facility] Comment on above: Performed By: #### M 100.637, M100.6796 #### [facility] [address] [place], [address] Albumin/Globulin [Mass ratio] 1.2 {ratio} Normal 0.9-2.4 [facility] Comment on above: Performed By: #### M 100.637, M100.6796 #### [facility] [address] [place], [address] ALK P 72 U/L Normal 45-117 [facility] Comment on above: Performed By: #### M 100.637, M100.6796 #### [facility] [address] [place], [address] ALT [Catalytic activity/Vol] 51 U/L Normal 16-61 [facility] Comment on above: Performed By: #### M 100.637, M100.6796 #### [facility] [address] [place], [address] AST [Catalytic activity/Vol] 62 U/L High 15-37 [facility] Comment on above: Performed By: #### M 100.637, M100.96 #### [facility] [address] [place], [address] Bilirubin [Mass/Vol] 1.00 mg/dL Normal 0.20-1.[address] [facility] Comment on above: Result Comment: For patients on eltrombopag therapy, use of Dimension [place] TBIL is not recommended. Performed By: #### M 100.637, M100.96 #### [facility] [address] [place], [address] BUN/CRE 14.6 RATIO Normal 10-20 [facility] Comment on above: Performed By: #### M 100.637, M1.96 #### [facility] [address] [place], [address] CA,Total 8.9 mg/dL Normal 8.5-10.1 [facility] Comment on above: Performed By: #### M 100.637, M100.96 #### [facility] [address] [place], [address] Chloride [Moles/Vol] 109 mmol/L High 98-[address] [facility] Comment on above: Performed By: #### M 100.637, M100.96 #### [facility] [address] [place], [address] CO2 [Moles/Vol] 20.0 mmol/L Low 21.0-32.0 [facility] Comment on above: Performed By: #### M 100.637, M100.6796 #### [facility] [address] [place], [address] Creatinine [Mass/Vol] 1.64 mg/dL High 0.70-1.30 [facility] Comment on above: Result Comment: The validity of the calculated GFR GFRAA in patients over 70 years has not been determined. Clinical correlation is essential. Performed By: #### M 100.637, M100.96 #### [facility] [address] [place], [address] ECRCL 66.96 ml/min Normal [facility] Comment on above: Performed By: #### M 100.637, M100.96 #### [facility] [address] [place], [address] EST GFR - AA 62 mL/min Normal >60 [facility] Comment on above: Result Comment: Afri can Marshallese GFR Calc Performed By: #### M 100.637, M1.96 #### [facility] [address] [place], [address] GAP 10 Normal 5-15 [facility] Comment on above: Performed By: #### M 100.637, .96 #### [facility] [address] [place], [address] GFR/1.73 sq M.predicted among non-blacks MDRD (S/P/Bld) [Vol rate/Area] 51 mL/min/{1.73_m2} Low >60 [facility] Comment on above: Result Comment: Non- GFR Calc Performed By: #### M 100.637, M1.96 #### [facility] [address] [place], [address] Globulin (S) [Mass/Vol] 3.1 g/dL Normal 2.2-4.2 [facility] Comment on above: Performed By: #### M 100.637, M100.96 #### [facility] [address] [place], [address] Glucose [Mass/Vol] 116 mg/dL High 74-106 [facility] Comment on above: Result Comment: Fast ing Glucose result from 100 to 125 mg/dL suggests IMPAIRED HOMEOSTASIS per A.D.A. criteria. Performed By: #### M 100.637, M100.6796 #### [facility] [address] [place], [address] Potassium [Moles/Vol] 4.2 mmol/L Normal 3.5-5.1 [facility] Comment on above: Performed By: #### M 100.637, M100.6796 #### [facility] [address] [place], [address] Sodium [Moles/Vol] 139 mmol/L Normal 136-145 [facility] Comment on above: Performed By: #### M 100.637, M100.6796 #### [facility] [address] [place], [address] T PROT 6.9 g/dL Normal 6.4-8.2 [facility] Comment on above: Performed By: #### M 100.637, M100.96 #### [facility] [address] [place], [address] Urea nitrogen [Mass/Vol] 24 mg/dL High 7-18 [facility] Comment on above: Performed By: #### M 100.637, M100.6796 #### [facility] [address] [place], [address] D-Dimer Quantitative (DVT/PE )on 04-18-2024 D-DIMER QUANT 0.39 FEU/ug/m Normal 0.27-0.49 [facility] Comment on above: Result Comment: NORM AL D-Dimer level (<0.50) indicates no DVT or PE. Performed By: #### M 100.637, M100.6796 #### [facility] [address] [place], [address] Emergency Department Summary on 04-18-2024 Emergency Department Summary [facility] Medical Records Department [address] [place] [address] Emergency Department Summary 04/18/24 MR#: [id number] Acct: [id number] Name: GABRIELA VIDAL Jr. Rep #: [id number] : 1990 33 From: Esteban Medel DO [...] viral st (more content not included)... Normal [facility] Erythrocyte Sed Rateon 04-18 SED RATE Normal 0-20 [facility] Comment on above: Result Comment: JIMMY ASKEW,RN AWARE OF CANCELLING, SHE WILL INFORM Performed By: #### M 100631, M100.6796 #### [facility] [address] [place], [place], [address] Ferritinon 04-18-2024 Ferritin [Mass/Vol] 175 ng/mL Normal 26-388 [facility] Comment on above: Order Comment: Comme nts: May add to ED labsmay add to ED labs Performed By: #### M 100.531, M100.3496 #### [facility] [address] [place], [address] H AND P Exam - Hospitaliston 04-18-2024 H&P Exam - Hospitalist [facility] Medical Records Department [address] [facility] [place] [address] H P Exam - Hospitalist 04/18/24 0228 MR#: [id number] Acct: [id number] Name: GABRIELA VIDAL Rep #: [id number] : 1990 33 From: Lucero Vidal MD PCP: ELOISA Braden Status:ADM IN [place] [place] - General General Date of Admission: 04/18/24 Date of Service: 04/18/24 Chief Complaint: N/V/D HPI Narrative The patient is a 33 y/o M w/ PMHx: Anxiety and Depression/Mood disorder/High suspicion underlying schizophrenia with history of frequent auditory hallucinations, Tobacco use, CKD stage II per GFR trending, History of Polysubstance abuse (Fentanyl, Methamphetamines per prior records) who presents [facility] ED on 04/18/24 with history of [...] Examination: Genera (more content not included)... Normal [facility] HIV - WCHon 04-18-2024 HIV Non-Reactive Normal Nonreactive [facility] Comment on above: Order Comment: Reaso n for Exam: Hx polysubstance abuseReason for Exam: Hepatitis Screen Performed By: #### L 509.8000, L3890.6005, L3890.6100, L3890.6200, L3890.6300 ####[facility] [address] [place], [place], [address] Hepatitis B Surface Antibody on 04-18-2024 HEP B Surf Ab Non-Reactive Normal [facility] Comment on above: Order Comment: Reaso n for Exam: Hx polysubstance abuseReason for Exam: Hepatitis Screen Result Comment: Non Reactive: Inconsistent with immunity less than <10 mIU/mL Reactive: Consistent with immunity greater than or equal to 10 mIU/mL Performed By: #### L 509.8000, L3890.6005, L3890.6100, L3890.6200, L3890.6300 ####[facility] [address] [place], [place], [address] Hepatitis B Surface Antigeno n 04-18-2024 HEP B Surf Ag Non-Reactive Normal Nonreactive [facility] Comment on above: Order Comment: Reaso n for Exam: Hx polysubstance abuseReason for Exam: Hepatitis Screen Performed By: #### L 509.8000, L3890.6005, L3890.6100, L3890.6200, L3890.6300 ####[facility] [address] [place], [address] Hepatitis C Antibodyon 04-18 Hepatitis C AB Non-Reactive Normal Nonreactive [facility] Comment on above: Order Comment: Reaso n for Exam: Hx polysubstance abuseReason for Exam: Hepatitis Screen Result Comment: Non Reactive: < 0.8 Equivocal: >/= 0.8 to < 1.0 Reactive: >/= 1.0 The CDC requires that a reactive/equivocal HCV antibody result be sent out for confirmation. HCV Quant by PCR testing. Performed By: #### L 509.8000, L3890.6005, L3890.6100, L3890.6200, L3890.6300 ####[facility] [address] [place], [place], [address] L509.8000on 04-18-2024 Syphilis Abs Non-Reactive Normal [facility] Comment on above: Order Comment: Reaso n for Exam: Hx polysubstance abuseReason for Exam: Hepatitis Screen Performed By: #### L 509.8000, L3890.6005, L3890.6100, L3890.6200, L3890.6300 ####[facility] [address] [place], [address] LDHon 04-18-2024 LDH 338 U/L High 87-241 [facility] Comment on above: Order Comment: Comme nts: May add to ED labsmay add to ED labs Performed By: #### M 100.637, M100.6796 #### [facility] [address] [place], [address] Lipaseon 04-18-2024 Lipase [Catalytic activity/Vol] 17 U/L Normal 13-75 [facility] Comment on above: Result Comment: Aniyah castañeda note: LIPASE revised reference range effective 22. New Lipase methodology. Expected to produce lower values than the previous assay method. NEW Reference Range: 13 - 75 U/L Performed By: #### L 100.0100, L501.2450, L500.2500, L500.3400, L501.5200 #### [facility] [address] [place], [address] Liver Profileon 04-18-2024 Albumin [Mass/Vol] 4.8 g/dL Normal 3.2-5.0 [facility] Comment on above: Performed By: #### L 100.0100, L501.2450, L500.2500, L500.3400, L501.5200 #### [facility] [address] [place], [address] ALK P 85 U/L Normal 45-117 [facility] Comment on above: Performed By: #### L 100.0100, L501.2450, L500.2500, L500.3400, L501.5200 #### [facility] [address] [place], [address] ALT [Catalytic activity/Vol] 61 U/L Normal 16-61 [facility] Comment on above: Performed By: #### L 100.0100, L501.2450, L500.2500, L500.3400, L501.5200 #### [facility] [address] [place], [address] AST [Catalytic activity/Vol] 59 U/L High 15-37 [facility] Comment on above: Performed By: #### L 100.0100, L501.2450, L500.2500, L500.3400, L501.5200 #### [facility] [address] [place], [address] Bilirubin [Mass/Vol] 1.50 mg/dL High 0.20-1.[address] [facility] Comment on above: Result Comment: For patients on eltrombopag therapy, use of Dimension [place] TBIL is not recommended. Performed By: #### L 100.0100, L501.2450, L500.2500, L500.3400, L501.5200 #### [facility] [address] [place], [address] Bilirubin.direct [Mass/Vol] 0.37 mg/dL High 0.00-0.30 [facility] Comment on above: Performed By: #### L 100.0100, L501.2450, L500.2500, L500.3400, L501.5200 #### [facility] [address] [place], [address] Globulin (S) [Mass/Vol] 3.6 g/dL Normal 2.2-4.2 [facility] Comment on above: Performed By: #### L 100.0100, L501.2450, L500.2500, L500.3400, L501.5200 #### [facility] [address] [place], [address] T PROT 8.4 g/dL High 6.4-8.2 [facility] Comment on above: Performed By: #### L 100.0100, L501.2450, L500.2500, L500.3400, L501.5200 #### [facility] [address] [place], [address] M100.678on 04-18-2024 M100.678 Copy of report sent to Infection Control Printer [id number] 04/18/24 1335 ERICKA. CRITICAL VALUE CALLED TO LSPARR 04/18/24 0122 Abundio Leon. RESULTS READ BACK BY SAME. SARS-CoV-2 (COVID 19) A Positive A INFLUENZA A Negative INFLUENZA B Negative RSV PCR Negative SARS-CoV-2 (COVID 19 PCR) Normal [facility] Comment on above: Performed By: #### M 100.678 ####[facility] [address] [place], [address] Magnesiumon 04-18-2024 Magnesium [Mass/Vol] 2.2 mg/dL Normal 1.6-2.[address] [facility] Comment on above: Performed By: #### L 100.0100, L501.2450, L500.2500, L500.3400, L501.5200 #### [facility] [address] [place], [address] Procalcitoninon 04-18-2024 Procalcitonin 3.46 ng/mL High 0.00-0.09 [facility] Comment on above: Result Comment: A procalcitonin [...] Performed By: #### M 100.637, M196 #### [facility] [address] [place], [address] Urine Drug Screen (VISTA)on 04-18-2024 AMPHETAMINES Positive Abnormal <1000 ng/mL [facility] Comment on above: Performed By: #### M 100.637, 96 #### [facility] [address] [place], [address] BARBITIURATES Negative Normal < 200 ng/mL [facility] Comment on above: Performed By: #### M 100.637, 96 #### [facility] [address] [place], [address] BENZODIAZIPINE Negative Normal < 200 ng/mL [facility] Comment on above: Performed By: #### M 100.63, 96 #### [facility] [address] [place], [address] COCAINE Negative Normal < 300 ng/mL [facility] Comment on above: Performed By: #### M 100.637, 96 #### [facility] [address] [place], [address] ECSTACY Positive Abnormal < 500 ng/mL [facility] Comment on above: Performed By: #### M 100.637, 96 #### [facility] [address] [place], [address] METHADONE Negative Normal < 300 ng/mL [facility] Comment on above: Performed By: #### M 100.637, M196 #### [facility] [address] [place], [address] OPIATES Negative Normal < 300 ng/mL [facility] Comment on above: Performed By: #### M 100.637, M100.6796 #### [facility] [address] [place], [place], [address] PCP Negative Normal < 25 ng/mL [facility] Comment on above: Performed By: #### M 100.637, M100.6796 #### [facility] [address] [place], [place], [address] THC Positive Abnormal < 50 ng/mL [facility] Comment on above: Performed By: #### M 100.637, M100.6796 #### [facility] [address] [place], [place], [address] VISTA UDS PH 3 Normal [facility] Comment on above: Performed By: #### M 100.637, M100.6796 #### [facility] [address] [place], [place], [address] CNPLindy 01-28-2024 MARTHA Telephone (AGFAMPLE) GABRIELA VIDAL JR. ([id number]) 1990 M Date Time Provider Department 01/28/24 [...] Date Reviewed: 01/15/2024 Reviewed by: Shania Vieira APRN.TITLE DEPARTMENT MANAGER - Fully Assessed Reason for Visit: Consult [502] Primary Visit Diagnosis:Acute pain of left shoulder [M25.512] Other Visit Diagnosis:Injury of left shoulder, initial encounter [S49.92XA] Order(s):CONSULT TO ORTHOPAEDICS [9071] Order #: [id number]: 1 FUTURE Prescriptions as of 01/28/2024 - [...] Status:Closed by SHANIA VIEIRA on 01/28/24 Normal [facility] Absolute lymphocyte countOrd ered By: Jose E Meier on 09-28-2023 Lymphocytes Auto (Unsp spec) [#/Vol] 1.95 10*3/uL 0.83-4.51 [facility] Automated lymphocyte count a s percentage of total leukocytesOrdered By: Jose E Meier on 09-28-2023 Lymphocytes/100 WBC Auto (Unsp spec) 19.5 % 19-41 [facility] Basophil percentageOrdered B y: Jose E Meier on 09-28-2023 Basophils/100 WBC (Bld) 0.5 % 0-1 [facility] Chloride [Moles/Vol] 113 mmol/L 98-[address] [facility] Eosinophils/100 WBC (Bld) 0.3 % 0-5 [facility] Glucose [Mass/Vol] 114 mg/dL 74-106 [facility] Comment on above: Fasting Glucose resu lt from 100 to 125 mg/dL suggests IMPAIRED HOMEOSTASIS per A.D.A. criteria. Hemoglobin (Bld) [Mass/Vol] 14.9 g/dL 13.0-16.5 [facility] Monocytes/100 WBC (Bld) 5.9 % 0-10 [facility] Neutrophils (Bld) [#/Vol] 7.3 10*3/uL 2.0-7.7 [facility] Neutrophils/100 WBC (Bld) 73.3 % 47-70 [facility] Potassium [Moles/Vol] 3.7 mmol/L 3.5-5.1 [facility] Sodium [Moles/Vol] 143 mmol/L 136-145 [facility] WBC (Bld) [#/Vol] 10.0 10*3/uL 4.4-11.0 [facility] Determination of erythrocyte mean corpuscular volume (MCV)Ordered By: Jose E Meier on 09-28-2023 MCV (RBC) [Entitic vol] 89.6 fL 80-94 [facility] Erythrocyte distribution wid th ratioOrdered By: Jose E Meier on 09-28-2023 Erythrocyte distribution width (RBC) [Ratio] 12.3 % 11.6-14.6 [facility] Erythrocyte distribution wid th standard deviationOrdered By: Jose E Meier on 09-28-2023 Erythrocyte distribution width (RBC) [Entitic vol] 40.1 fL 35.1-43.9 [facility] Hematocrit Auto (Bld) [Volum e fraction]Ordered By: Jose E Meier on 09-28-2023 Hematocrit (Bld) [Volume fraction] 44.8 % 40-54 [facility] Immature granulocytes/100 WB C Auto (Bld)Ordered By: Jose E Meier on 09-28-2023 Immature granulocytes/100 WBC (Bld) 0.500 % 0.0-0.9 [facility] Comment on above: IG% - Immature Granu locytes (promyelocytes, myelocytes and metamyelocytes) > 1% indicates that a LEFT SHIFT is Present. Laboratory - Chemistry and C hemistry - challengeOrdered By: Jose E Meier on 09-28-2023 CO2 [Moles/Vol] 28.0 mmol/L 21.0-32.0 [facility] Urea nitrogen/Creatinine [Mass ratio] 15.7 mg/mg 10-20 [facility] Laboratory - Drug toxicology Ordered By: Jose E Meier on 09-28-2023 Amphetamines Ql (U) Negative <1000 ng/mL [facility] Benzodiazepines Ql (U) Negative < 200 ng/mL [facility] Cannabinoids Screen Ql (U) Positive < 50 ng/mL [facility] Cocaine Ql (U) Negative < 300 ng/mL [facility] Opiates Ql (U) Negative < 300 ng/mL [facility] Laboratory - Hematology and Cell countsOrdered By: Jose E Meier on 09-28-2023 MCH (RBC) [Entitic mass] 29.8 pg 27.0-32.0 [facility] MCHC (RBC) [Mass/Vol] 33.3 g/dL 32-36 [facility] Nucleated RBC/100 WBC (Bld) [Ratio] 0 % 0-5 [facility] Platelet mean volume (Bld) [Entitic vol] 10.8 fL 6.2-12.0 [facility] Platelets (Bld) [#/Vol] 256 10*3/uL 150-450 [facility] Laboratory - Microbiology an d Antimicrobial susceptibilityOrdered By: Jose E Meier on 09-28-2023 SARS-CoV-2 (COVID-19) RNA CARLOS+probe Ql (Unsp spec) [facility] No Panel InformationOrdered By: Jose E Meier on 09-28-2023 Estimated Creatinine Clearance Calc 105.36 ml/min [facility] Estimated GFR (MDRD) Amer 107 mL/min >60 [facility] Comment on above: GFR Calc Estimated GFR (MDRD) Non-Af Amer 88 mL/min >60 [facility] Comment on above: Non- GFR Calc Ethyl Alcohol Level 4.0 mg/dL [facility] Comment on above: The serum:whole bloo d ethanol ratio is approximately 1.14and varies slightly with hematocrit. Medical Alcohol reference interval and critical value innon-tolerant individuals; 50 - 100 Impairment 100 Intoxication 100 - 250 Severe Poisoning 250 - 400 Deep/possible fatal coma MDMA (Ecstasy) Screen Negative < 500 ng/mL [facility] Urine Barbiturates Screen Negative < 200 ng/mL [facility] Urine Drug Screen Comment [facility] Comment on above: CONFIRMATORY TESTING FOR ALL [...] Methadone Screen Negative < 300 ng/mL [facility] RBC Auto (Bld) [#/Vol]Ordere d By: Jose E Meier on 09-28-2023 RBC (Bld) [#/Vol] 5.00 10*6/uL 4.6-6.2 [facility] Serum or plasma calcium jacob urement (mass/volume)Ordered By: Jose E Meier on 09-28-2023 Calcium [Mass/Vol] 8.7 mg/dL 8.5-10.1 [facility] Serum or plasma creatinine m easurement (mass/volume)Ordered By: Jose E Meier on 09-28-2023 Creatinine [Mass/Vol] 1.02 mg/dL 0.70-1.30 [facility] Comment on above: The validity of the calculated GFR & GFRAA in patients over 70 years has not been determined. Clinical correlation is essential. Serum or plasma urea nitroge n measurement (mass/volume)Ordered By: Jose E Meier on 09-28-2023 Urea nitrogen [Mass/Vol] 16 mg/dL 7-18 [facility] Thin prep Papanicolaou smear with manual screeningOrdered By: Jose E Meier on 09-28-2023 Thin prep Papanicolaou smear with manual screening 2 5-15 [facility] Urine phencyclidine (PCP) de tectionOrdered By: Jose E Meier on 09-28-2023 Phencyclidine Ql (U) Negative < 25 ng/mL [facility] ALLIED HEALTHon 01-29-2023 ALLIED HEALTH HNO ID: [id number] Author: RT Latoya(R) Service: Radiology Author Type: Launchman Type: Allied Health Filed: 01/29/2023 1:10 PM [...] Latoya(R) January 29, 2023 1:10 PM Normal [facility] CBC W Auto Differential pane l (Bld)on 01-29-2023 Basophils (Bld) [#/Vol] 0.03 10*3/uL Normal <0.11 [facility] Comment on above: Order Comment: Speci men Type: BLOOD SPECIMEN Ordering Facility: [facility] Address: [address] [place] [address] Performed By: #### 5 7021-8 #### [facility] CLIA [id number] [address] [place] [address] [place] Basophils/100 WBC (Bld) 0.5 % Normal [facility] Comment on above: Order Comment: Speci men Type: BLOOD SPECIMEN Ordering Facility: [facility] Address: [address] [place] [address] Performed By: #### 5 7021-8 #### [facility] CLIA [id number] [address] [place] [address] [place] Differential cell count method Nom (Bld) Auto Normal [facility] Comment on above: Order Comment: Speci men Type: BLOOD SPECIMEN Ordering Facility: [facility] Address: [address] [address] Performed By: #### 5 7021-8 #### [facility] CLIA [id number] [place] [address] [place] Eosinophils (Bld) [#/Vol] 0.16 10*3/uL Normal <0.46 [facility] Comment on above: Order Comment: Speci men Type: BLOOD SPECIMEN Ordering Facility: [facility] Address: [address] [address] Performed By: #### 5 7021-8 #### [facility] CLIA [id number] [address] [place] [address] [place] Eosinophils/100 WBC (Bld) 2.4 % Normal [facility] Comment on above: Order Comment: Speci men Type: BLOOD SPECIMEN Ordering Facility: [facility] Address: [address] [place] [address] Performed By: #### 5 7021-8 #### [facility] CLIA [id number] [address] [place] [address] [place] Erythrocyte distribution width (RBC) [Ratio] 12.7 % Normal 11.5-15.0 [facility] Comment on above: Order Comment: Speci men Type: BLOOD SPECIMEN Ordering Facility: [facility] Address: [address] [place] [address] Performed By: #### 5 7021-8 #### [facility] CLIA [id number] [address] [place] [address] [place] Hematocrit (Bld) [Volume fraction] 39.3 % Normal 39.0-51.0 [facility] Comment on above: Order Comment: Speci men Type: BLOOD SPECIMEN Ordering Facility: [facility] Address: [address] [place] [address] Performed By: #### 5 7021-8 #### [facility] CLIA [id number] [place] [address] [place] Hemoglobin (Bld) [Mass/Vol] 13.1 g/dL Normal 13.0-17.0 [facility] Comment on above: Order Comment: Speci men Type: BLOOD SPECIMEN Ordering Facility: [facility] Address: [address] [place] [address] Performed By: #### 5 7021-8 #### [facility] CLIA [id number] [place] [address] [place] Immature granulocytes (Bld) [#/Vol] 0.03 10*3/uL Normal <0.10 [facility] Comment on above: Order Comment: Speci men Type: BLOOD SPECIMEN Ordering Facility: [facility] Address: [address] [place] [address] Performed By: #### 5 7021-8 #### [facility] IA [id number] [address] [place] [address] [place] Immature granulocytes/100 WBC (Bld) 0.5 % Normal [facility] Comment on above: Order Comment: Speci men Type: BLOOD SPECIMEN Ordering Facility: [facility] Address: [address] [place] [address] Performed By: #### 5 7021-8 #### [facility] IA [id number] [address] [place] [address] [place] Lymphocytes (Bld) [#/Vol] 3.11 10*3/uL Normal 1.00-4.00 [facility] Comment on above: Order Comment: Speci men Type: BLOOD SPECIMEN Ordering Facility: [facility] Address: [address] [place] [address] Performed By: #### 5 7021-8 #### [facility] CLIA [id number] [address] [place] [address] [place] Lymphocytes/100 WBC (Bld) 47.3 % Normal [facility] Comment on above: Order Comment: Speci men Type: BLOOD SPECIMEN Ordering Facility: [facility] Address: [address] [address] Performed By: #### 5 7021-8 #### [facility] CLIA [id number] [address] [place] [address] MCH (RBC) [Entitic mass] 30.0 pg Normal 26.0-34.0 [facility] Comment on above: Order Comment: Speci men Type: BLOOD SPECIMEN Ordering Facility: [facility] Address: [address] [address] Performed By: #### 5 7021-8 #### [facility] CLIA [id number] [address] [place] [address] [place] MCHC (RBC) [Mass/Vol] 33.3 g/dL Normal 30.5-36.0 [facility] Comment on above: Order Comment: Speci men Type: BLOOD SPECIMEN Ordering Facility: [facility] Address: [address] [address] Performed By: #### 5 7021-8 #### [facility] CLIA [id number] [address] [place] [address] [place] MCV (RBC) [Entitic vol] 90.1 fL Normal 80.0-100.0 [facility] Comment on above: Order Comment: Speci men Type: BLOOD SPECIMEN Ordering Facility: [facility] Address: [address] [address] Performed By: #### 5 7021-8 #### [facility] CLIA [id number] [address] [place] [address] [place] Monocytes (Bld) [#/Vol] 0.65 10*3/uL Normal <0.87 [facility] Comment on above: Order Comment: Speci men Type: BLOOD SPECIMEN Ordering Facility: [facility] Address: [address] [address] Performed By: #### 5 7021-8 #### [facility] CLIA [id number] [address] [place], [place] [id number] [place] Monocytes/100 WBC (Bld) 9.9 % Normal [facility] Comment on above: Order Comment: Speci men Type: BLOOD SPECIMEN Ordering Facility: [facility] Address: [address] [place] [address] Performed By: #### 5 7021-8 #### [facility] CLIA [id number] [place] [address] [place] Neutrophils (Bld) [#/Vol] 2.59 10*3/uL Normal 1.45-7.50 [facility] Comment on above: Order Comment: Speci men Type: BLOOD SPECIMEN Ordering Facility: [facility] Address: [address] [place] [address] Performed By: #### 5 7021-8 #### [facility] CLIA [id number] [address] [place] [address] [place] Neutrophils/100 WBC (Bld) 39.4 % Normal [facility] Comment on above: Order Comment: Speci men Type: BLOOD SPECIMEN Ordering Facility: [facility] Address: [address] [place] [address] Performed By: #### 5 7021-8 #### [facility] CLIA [id number] [address] [place] [address] [place] Nucleated RBC (Bld) [#/Vol] 10*3/uL Normal <0.01 [facility] Comment on above: Order Comment: Speci men Type: BLOOD SPECIMEN Ordering Facility: [facility] Address: [address] [place] [address] Performed By: #### 5 7021-8 #### [facility] CLIA [id number] [address] [place] [address] [place] Nucleated RBC/100 WBC (Bld) [Ratio] 0.0 /100 WBC Normal [facility] Comment on above: Order Comment: Speci men Type: BLOOD SPECIMEN Ordering Facility: [facility] Address: [address] [place] [address] Performed By: #### 5 7021-8 #### [facility] CLIA [id number] [place] [address] [place] Platelet mean volume (Bld) [Entitic vol] 10.9 fL Normal 9.0-12.7 [facility] Comment on above: Order Comment: Speci men Type: BLOOD SPECIMEN Ordering Facility: [facility] Address: [address] [place] [address] Performed By: #### 5 7021-8 #### [facility] CLIA [id number] [place] [address] [place] Platelets (Bld) [#/Vol] 209 10*3/uL Normal 150-400 [facility] Comment on above: Order Comment: Speci men Type: BLOOD SPECIMEN Ordering Facility: [facility] Address: [address] [place] [address] Performed By: #### 5 7021-8 #### [facility] CLIA [id number] [address] [place] [address] [place] RBC (Bld) [#/Vol] 4.36 10*6/uL Normal 4.20-6.00 [facility] Comment on above: Order Comment: Speci men Type: BLOOD SPECIMEN Ordering Facility: [facility] Address: [address] [place] [address] Performed By: #### 5 7021-8 #### [facility] CLIA [id number] [address] [place] [address] [place] WBC (Bld) [#/Vol] 6.57 10*3/uL Normal 3.70-11.00 [facility] Comment on above: Order Comment: Speci men Type: BLOOD SPECIMEN Ordering Facility: [facility] Address: [address] [place] [address] Performed By: #### 5 7021-8 #### [facility] CLIA [id number] [address] [place] [address] [place] Comprehensive metabolic 2000 panelon 01-29-2023 Albumin [Mass/Vol] 3.6 g/dL Low 3.9-4.9 [facility] Comment on above: Order Comment: Speci men Type: BLOOD SPECIMEN Ordering Facility: [facility] Address: [address] [place] [address] Performed By: #### 1 9123-9, [id number], 19523-0 #### [facility] CLIA [id number] [place] [address] [place] ALP [Catalytic activity/Vol] 46 U/L Normal 38-113 [facility] Comment on above: Order Comment: Speci men Type: BLOOD SPECIMEN Ordering Facility: [facility] Address: [address] [place] [address] Performed By: #### 1 9123-9, [id number], 14837-4 #### [facility] CLIA [id number] [address] [place] [address] [place] ALT [Catalytic activity/Vol] 13 U/L Normal 10-54 [facility] Comment on above: Order Comment: Speci men Type: BLOOD SPECIMEN Ordering Facility: [facility] Address: [address] [place] [address] Performed By: #### 1 9123-9, [id number], 10178-8 #### [facility] CLIA [id number] [address] [place] [address] [place] Anion gap [Moles/Vol] 7 mmol/L Low 9-18 [facility] Comment on above: Order Comment: Speci men Type: BLOOD SPECIMEN Ordering Facility: [facility] Address: [address] [place] [address] Performed By: #### 1 9123-9, [id number], 28027-9 #### [facility] CLIA [id number] [place] [address] [place] AST [Catalytic activity/Vol] 16 U/L Normal 14-40 [facility] Comment on above: Order Comment: Speci men Type: BLOOD SPECIMEN Ordering Facility: [facility] Address: [address] Performed By: #### 1 23-9, [id number], #### [facility] CLIA [id number] [address] [place] [address] [place] Bilirubin [Mass/Vol] 0.4 mg/dL Normal 0.2-1.3 [facility] Comment on above: Order Comment: Speci men Type: BLOOD SPECIMEN Ordering Facility: [facility] Address: [address] [address] Performed By: #### 1 23-9, [id number], #### [facility] CLIA [id number] [address] [place] [address] [place] Calcium [Mass/Vol] 8.4 mg/dL Low 8.5-10.2 [facility] Comment on above: Order Comment: Speci men Type: BLOOD SPECIMEN Ordering Facility: [facility] Address: [address] [address] Performed By: #### 1 23-9, [id number], #### [facility] CLIA [id number] [address] [place] [address] [place] Chloride [Moles/Vol] 108 mmol/L High 97-105 [facility] Comment on above: Order Comment: Speci men Type: BLOOD SPECIMEN Ordering Facility: [facility] Address: [address] Performed By: #### 1 23-9, [id number], #### [facility] CLIA [id number] [address] [place] [address] [place] CO2 [Moles/Vol] 26 mmol/L Normal 22-30 [facility] Comment on above: Order Comment: Speci men Type: BLOOD SPECIMEN Ordering Facility: [facility] Address: [address] Performed By: #### 1 9123-9, [id number], #### [facility] CLIA [id number] [address] [place] [address] [place] Creatinine [Mass/Vol] 1.14 mg/dL Normal 0.73-1.22 [facility] Comment on above: Order Comment: Cristela ness Type: BLOOD SPECIMEN Ordering Facility: [facility] Address: [address] [place] [address] Performed By: #### 1 9123-9, [id number], 25919-3 #### [facility] CLIA [id number] [place] [address] [place] ESTIMATED GLOMERULAR FILTRATION RATE 87 mL/min/1.73m??? Normal >=60 [facility] Comment on above: Order Comment: Cristela ness Type: BLOOD SPECIMEN Ordering Facility: [facility] Address: [address] [place] [address] Result Comment: Cathy mated Glomerular Filtration Rate [...] actual GFR. Performed By: #### 1 9123-9, [id number], 19737-0 #### [facility] CLIA [id number] [address] [place] [address] [place] Glucose [Mass/Vol] 115 mg/dL High 74-99 [facility] Comment on above: Order Comment: Cristela ness Type: BLOOD SPECIMEN Ordering Facility: [facility] Address: [address] [place] [address] Result Comment: The [place] [employer] (ADA) [...] 2016.39(Suppl 1). Performed By: #### 1 9123-9, [id number], #### [facility] CLIA [id number] [address] [place] [address] [place] Potassium [Moles/Vol] 4.1 mmol/L Normal 3.7-5.1 [facility] Comment on above: Order Comment: Speci men Type: BLOOD SPECIMEN Ordering Facility: [facility] Address: [address] [address] Performed By: #### 1 9123-9, [id number], #### [facility] CLIA [id number] [address] [place] [address] [place] Protein [Mass/Vol] 5.5 g/dL Low 6.3-8.0 [facility] Comment on above: Order Comment: Speci men Type: BLOOD SPECIMEN Ordering Facility: [facility] Address: [address] [place] [address] Performed By: #### 1 23-9, [id number], #### [facility] CLIA [id number] [address] [place] [address] [place] Sodium [Moles/Vol] 141 mmol/L Normal 136-144 [facility] Comment on above: Order Comment: Speci men Type: BLOOD SPECIMEN Ordering Facility: [facility] Address: [address] [place] [address] Performed By: #### 1 23-9, [id number], #### [facility] CLIA [id number] [address] [place] [address] [place] Urea nitrogen [Mass/Vol] 12 mg/dL Normal 9-24 [facility] Comment on above: Order Comment: Speci men Type: BLOOD SPECIMEN Ordering Facility: [facility] Address: [address] [place] [phone] Performed By: #### 1 9123-9, [id number], 84789-8 #### [facility] IA [id number] [address] [place] [address] [facility] COMPLETEon 01-29-2023 ECG COMPLETE Ventricular Rate : 7 8 BPM Atrial Rate : 78 BPM P-R Interval : 160 ms QRS Duration : 122 ms Q-T Interval : 374 ms QTC Calculation(Bazett) : 426 ms Calculated P [place] : 64 degrees Calculated R [place] : 82 degrees Calculated T [place] : 49 degrees Sinus rhythm IVCD, consider atypical RBBB ST elevation suggests acute pericarditis Abnormal ECG no stemi Confirmed by ERIK DAVIS MD ([id number]), photograph editor SUZI BRUNO ([id number]) on 01/30/2023 10:18:17 AM NAME : GABRIELA VIDAL PID : [id number] : 1990 Gender : Male Race : ORD : [id number] Procedure Date : Jan 29 2023 12:34:12 Edit Date : Jan 30 2023 10:18:21 Diagnosis: Sinus rhythm IVCD, consider atypical RBBB ST elevation suggests acute pericarditis Abnormal ECG no stemi Confirmed by ERIK DAVIS MD ([id number]), photograph editor SUZI BRUNO ([id number]) on 01/30/2023 10:18:17 AM Test Reason : Chest Pain Location : 18 : ED [id number] Overread By : ERIK DAVIS MD Edited By : SUZI BRUNO Referred By : , Acquired by : , [facility] ED NOTEon 01-29-2023 ED NOTE HNO ID: [id number] Author: Juliana Aguilera, ANDRES Service: Nursing Author [...] Pt ambulatory with steady gait on departure. [facility] ED NOTE HNO ID: [id number] Author: Juliana Aguilera RN Service: Nursing Author [...] up, bed in locked and low position [facility] ED NOTE HNO ID: [id number] Author: Anabel Hernandez RN Service: ? Author Type: Registered Nurse Type: ED Notes Filed: 01/29/2023 12:23 PM Note Text: Bed: ED-13 Expected date: Expected time: Means of arrival: Comments: EMS [facility] ED PROV NOTEon 01-29-2023 ED PROV NOTE HNO ID: [id number] Author: Erik Davis MD Service: Emergency Medicine [...] nursing note reviewed. Exam conducted with a industrial education teacher present. Constitutional: General: He is not in [...] intact. Motor: Motor function is intact. Coordination: Cwmzfb-Itxy-Scouap Test normal. Gait: Gait is intact. Psychiatric: [...] Final Result IMPRESSION: No acute radiographic abnormality. Vp Client Services: PSCB Transcribe Date/Time: Jan 29 2023 1:19P [...] per minute AXIS: Normal axis INTERVALS: Normal ID interval QRS COMPLEX: Normal ST SE (more content not included)... Normal [facility] HIGH SENSITIVITY TROPONIN T (INITIAL)on 01-29-2023 HIGH SENSITIVITY SHEBA 7 ng/L Normal <12 [facility] Comment on above: Order Comment: Speci men Type: BLOOD SPECIMENOrdering Facility: [facility] Address: [address] [place] [phone] Result Comment: When assessing risk for acute [...] day MACE. Performed By: #### 1 9123-9, [id number], 31559-6 ####[facility] [id number] [place] [id number] [place] HIGH SENSITIVITY TROPONIN T (SECOND)on 01-29-2023 HIGH SENSITIVITY SHEBA <6 Normal <12 [facility] Comment on above: Order Comment: Cristela ness Type: BLOOD SPECIMEN Ordering Facility: [facility] Address: [place] [address] Result Comment: When assessing risk for acute [...] 30 day MACE. Performed By: #### L [id number] #### [facility] CLIA [id number] [place] [address] [place] Magnesium SerPl-mCncon 01-29 Magnesium [Mass/Vol] 1.9 mg/dL Normal 1.7-2.3 [facility] Comment on above: Order Comment: Cristela ness Type: BLOOD SPECIMENOrdering Facility: [facility] Address: [place] [place] [address] Performed By: #### 1 9123-9, [id number], 16364-1 ####[facility]IA [id number] [place] [address] [place] No Panel Informationon 01-29 IMPRESSION: Mild acromioclavicular degenerative changes. Vp Client Services: YAIMA Transcribe Date/Time: Jan 29 2023 2:37P Dictated by : BROOK NELSON MD This examination was interpreted and the report reviewed and electronically signed by: BROOK NELSON MD on Guillermo 3 2023 2:38PM EST DIVISION OF RADIOLOGY Radiology Study observation (narrative) [facility] No Panel InformationOrdered By: Ccf Provider on 01-29-2023 [facility] XR CHEST 2V FRONTAL/LATon XR [...] tissues: Unremarkable. IMPRESSION: No acute radiographic abnormality. Vp Client Services: PSCB Transcribe Date/Time: Jan 29 2023 1:19P Dictated by : DEVEN CHAPMAN MD This examination was interpreted and the report reviewed and electronically signed by: DEVEN CHAPMAN MD on Jan 29 2023 1:20PM EST [id number] [facility] XR SHLDR >/=3V AP/ALESSANDRO AP/OTH R [...] >/=3V AP/ALESSANDRO AP/OTHR LT Laterality: RIGHT (accession [id number]), LEFT (accession [id number]) Number of different views (projections): 3 M: XB_1 COMPARISON: RESULT: Mild acromioclavicular degenerative changes bilaterally. Maintained glenohumeral joints bilaterally. Imaged lungs appear to be clear. No acute fracture or dislocation. There are no bony erosions. IMPRESSION: Mild acromioclavicular degenerative changes. Vp Client Services: [facility] Transcribe Date/Time: Jan 29 2023 2:37P Dictated by : BROOK NELSON MD This examination was interpreted and the report reviewed and electronically signed by: BROOK NELSON MD on Jan 29 2023 2:38PM EST [id number] Normal [facility] XR SHLDR >/=3V AP/ALESSANDRO AP/OTH R [...] >/=3V AP/ALESSANDRO AP/OTHR LT Laterality: RIGHT (accession [id number]), LEFT (accession [id number]) Number of different views (projections): 3 M: XB_1 COMPARISON: RESULT: Mild acromioclavicular degenerative changes bilaterally. Maintained glenohumeral joints bilaterally. Imaged lungs appear to be clear. No acute fracture or dislocation. There are no bony erosions. IMPRESSION: Mild acromioclavicular degenerative changes. Vp Client Services: [facility] Transcribe Date/Time: Jan 29 2023 2:37P Dictated by : BROOK NELSON MD This examination was interpreted and the report reviewed and electronically signed by: BROOK NELSON MD on Jan 29 2023 2:38PM EST [id number] Normal [facility] XR Shoulder - left 3 Viewson [...] >/=3V AP/ALESSANDRO AP/OTHR LT Laterality: RIGHT (accession [id number]), LEFT (accession [id number]) Number of different views (projections): 3 M: XB_1 COMPARISON: RESULT: Mild acromioclavicular degenerative changes bilaterally. Maintained glenohumeral joints bilaterally. Imaged lungs appear to be clear. No acute fracture or dislocation. There are no bony erosions. DIVISION OF RADIOLOGY Provider, [facility] - 01/29/2023 * * *Final Report* [...] >/=3V AP/ALESSANDRO AP/OTHR LT Laterality: RIGHT (accession [id number]), LEFT (accession [id number]) Number of different views (projections): 3 M: XB_1 COMPARISON: RESULT: Mild acromioclavicular degenerative changes bilaterally. Maintained glenohumeral joints bilaterally. Imaged lungs appear to be clear. No acute fracture or dislocation. There are no bony erosions. IMPRESSION IMPRESSION: Mild acromioclavicular degenerative changes. Vp Client Services: PSCB Transcribe Date/Time: Jan 29 2023 2:37P Dictated by : BROOK NELSON MD This examination was interpreted and the report reviewed and electronically signed by: BROOK NELSON MD on Jan 29 2023 2:38PM EST [facility] XR Shoulder - right 3 [...] >/=3V AP/ALESSANDRO AP/OTHR LT Laterality: RIGHT (accession [id number]), LEFT (accession [id number]) Number of different views (projections): 3 M: XB_1 COMPARISON: RESULT: Mild acromioclavicular degenerative changes bilaterally. Maintained glenohumeral joints bilaterally. Imaged lungs appear to be clear. No acute fracture or dislocation. There are no bony erosions. DIVISION OF RADIOLOGY Provider, [facility] - 01/29/2023 * * *Final Report* [...] >/=3V AP/ALESSANDRO AP/OTHR LT Laterality: RIGHT (accession [id number]), LEFT (accession [id number]) Number of different views (projections): 3 M: XB_1 COMPARISON: RESULT: Mild acromioclavicular degenerative changes bilaterally. Maintained glenohumeral joints bilaterally. Imaged lungs appear to be clear. No acute fracture or dislocation. There are no bony erosions. IMPRESSION IMPRESSION: Mild acromioclavicular degenerative changes. Vp Client Services: PSCB Transcribe Date/Time: Jan 29 2023 2:37P Dictated by : BROOK NELSON MD This examination was interpreted and the report reviewed and electronically signed by: BROOK NELSON MD on Jan 29 2023 2:38PM EST [facility] UA DIP, URINE (POC)on 2022 BILIRUBIN UA (POCT) Negative Negative [facility] CLARITY U[facility] (POCT) [facility] COLOR UA (POCT) Yellow [facility] GLUCOSE UA (POCT) Negative Negative mg/dL [facility] HEMOGLOBIN/BLOOD UA (POCT) Negative Negative [facility] KETONE UA (POCT) Negative Negative mg/dL [facility] LEUKOCYTES UA (POCT) Negative Negative [facility] NITRITE UA (POCT) Negative Negative [facility] PH UA (POCT) 5.5 4.5 - 8.0 [facility] Protein Ql (U) Negative Negative mg/dL [facility] SPECIFIC GRAVITY UA (POCT) >=1.030 1.005 - 1.030 [facility] UROBILINOGEN UA (POCT) 0.2 E.U./dL Skyla l E.U./dL [facility] Provider Note - ED v3on 11-27 Provider [...] by speech recognition technology. Minor errors in break and load operator may be present. HISTORY OF PRESENTING [...] Review Statu (more content not included)... Normal [facility] Triage - EDon 2022 Triage - ED Chart Review: ARRIVAL INFORMATION Mode of Arrival: ambulance Agency Name: [facility] CHIEF COMPLAINT GABRIELA VIDAL is a Male [...] 11-Dec-2022 21:00 by Dina Wood (RN PRN) [facility] ED NOTEon 01-03-2022 ED NOTE HNO ID: [id number] Author: Darcie Gary RN Service: Nursing Author [...] Pt ambulated off ED in no distress. [facility] ED NOTE HNO ID: [id number] Author: Nuvia George RN Service: ? Author Type: Registered Nurse Type: ED Notes Filed: 01/03/2022 11:51 AM Note Text: Pt presents to the ED with CC of a known dental infection for the past 2 years that has turned into an abscess, pt went [facility] where they attempted to drain the abscess and started him on oral antibiotics, pt now reports swelling is worse and to the point of his eye swelling shut [facility] ED PROV NOTEon 01-03-2022 ED PROV NOTE HNO ID: [id number] Author: Aysha Poole MD Service: ? Author [...] swelling 2 days ago. He went to [place] emergency department was placed on amoxicillin. He [...] alert and (more content not included)... Normal [facility] XR SHOULDER 2V AP/TRUE AP RT [...] otherwise maintained. No acute fracture or dislocation. Vp Client Services: YAIMA Transcribe Date/Time: Sep 09 2020 9:58A Dictated by : XAVI OLIVER MD This examination was interpreted and the report reviewed and electronically signed by: XAVI OLIVER MD on Sep 09 2020 10:09AM EST Normal [facility] CT CHEST WO IVCONon 08-02-19 CT CHEST WO IVCON Final Report DATE OF EXAM: Aug 02 2020 5:04PM [facility] 0541 - CT CHEST WO IVCON [...] abnormality identified in the imaged upper abdomen. [employer] Team Member (topogram) images: No additional findings. IMPRESSION: Interval resolution of right lower lobe consolidation/pneumonia . No acute findings in the chest. Vp Client Services: YAIMA Transcribe Date/Time: Aug 02 2020 6:06P Dictated by : LACI MENDOZA MD This examination was interpreted and the report reviewed and electronically signed by: LACI MENDOZA MD on Aug 02 2020 6:17PM EST Normal [facility] XR CHEST 2V FRONTAL/LATon XR CHEST [...] to ensure resolution and exclude a neoplasm. Vp Client Services: YAIMA Transcribe Date/Time: May 17 2020 5:34P Dictated by : JUAN AYERS MD This examination was interpreted and the report reviewed and electronically signed by: JUAN AYERS MD on May 17 2020 5:35PM EST Normal [facility] T. Vaginalis Amplificationon 02-10-2020 T. Vaginalis Amplification SEE BELOW Normal [facility] Comment on above: Result Comment: Tric h vag Amp Source Urine Corrected on 02/08 AT 1722: Previously reported as URINE T vag Amplification SEE BELOW Negative for Trichomonas vaginalis by amplification This test was developed and its performance characteristics determined by [facility]'s Gabriela Esteban [facility] Pathology and Laboratory Medicine Aubrey ( PLNE). It has not been cleared or approved by the FDA. [facility] is regulated under CLIA as qualified to perform high complexity testing. This test is used for clinical purposes. It should not be regarded as investigational or for research. Performing Laboratory: [facility] [address] [place] [address] Performed By: #### T RVAX #### [facility] [address] [place], [place] [address] GC/Chlam Urine Ampon 020 CT Amplification, Ur CT neg Normal [facility] Comment on above: Result Comment: Nega tive for Chlamydia trachomatis by amplification. Performed By: #### G CTUP #### [facility] [address] [place], [place] [address] GC Amplification, Ur GC neg Normal [facility] Comment on above: Result Comment: Nega tive for Neisseria gonorrhoeae by amplification. Performed By: #### G CTUP #### [facility] [address] [place], [place] [address] GC/Chlam Urine Ampon 020 GC/Chlam Urine Amp Source Urine Normal [facility] Comment on above: Performed By: #### G CTUP #### [facility] [address] [place], [place] [address] XR LUMBAR 3V AP/LAT/L5-S1on 02-02-2020 XR LUMBAR [...] are seen. IMPRESSION: No acute traumatic abnormality Vp Client Services: YAIMA Transcribe Date/Time: Feb 02 2020 1:49P Dictated by : LINDA RAMÍREZ MD This examination was interpreted and the report reviewed and electronically signed by: LINDA RAMÍREZ MD on Feb 02 2020 1:54PM EST Normal [facility] Chlamydia and GC PCR Panelon 02-09-2018 [...] as suspected child abuse or molestation. Normal [facility] Comment on above: Order Comment: Speci men Source Comment:Urine voided Performed By: #### C TNGP ####[facility] [address] [place] [address] CR Abdomen Series w/ Chest 1 Viewon 02-08-2018 CR Abdomen Series w/ Chest 1 View Patient Name: GABRIELA VIDAL Jr Diagnostic Radiology Exam Date/Time 02/08/2018 11:55:40 EDT Exam CR Abdomen Series w/ Chest 1 View Ordering Physician DO GONCALVES KIMBERLY D. Accession Number [id number] CPT4 Codes 78940 () Reason For Exam abdominal pain and [...] Transcribed Date and Time: 02/08/2018 1:03 Normal [facility] Comp Metabolic Panelon 02-08 Calcium 9.2 mg/dL Normal 8.4-10.4 [facility] Comment on above: Performed By: #### H YOLANDA CMP3 ####[address] [place] [address] Alanine aminotransferase (ALT) 19 U/L Normal 13-69 [facility] Comment on above: Performed By: #### H YOLANDA CMP3 ####[address] [place] [address] Alkaline phosphatase (ALP) 45 U/L Normal 38-126 [facility] Comment on above: Performed By: #### H YOLANDA CMP3 ####[address] [place] [address] Anion gap 9 Normal [facility] Comment on above: Performed By: #### H YOLANDA CMP3 ####[address] [place] [address] Aspartate aminotransferase (AST) 22 U/L Normal 15-46 [facility] Comment on above: Performed By: #### H YOLANDA CMP3 ####[address] [place] [address] Bilirubin (total) 0.5 mg/dL Normal 0.2-1.3 [facility] Comment on above: Performed By: #### H YOLANDA CMP3 ####[address] [place] [address] CO2 28 mmol/L Normal 22-30 [facility] Comment on above: Performed By: #### H YOLANDA CMP3 ####[address] [place] [address] Creatinine 1.19 mg/dL Normal 0.52-1.25 [facility] Comment on above: Performed By: #### H YOLANDA CMP3 ####[place] [id number] [place] [address] eGFR (black) mL/min/{1.73_m2} Normal >60 [facility] Comment on above: Performed By: #### H YOLANDA CMP3 ####[place] [id number] [place] [address] eGFR (non-black) mL/min/{1.73_m2} Normal >60 [facility] Comment on above: Result Comment: Sour ce- MDRD equation with creatinine calibration to IDMS(NKDEP) eGFR not recommended for drug dose adjustment Performed By: #### H YOLANDA CMP3 ####[address] [place] [address] Glucose mass conc 98 mg/dL Normal 70-100 [facility] Comment on above: Performed By: #### H YOLANDA CMP3 ####[address] [place] [address] Protein 6.9 g/dL Normal 6.3-8.2 [facility] Comment on above: Performed By: #### H YOLANDA CMP3 ####[place] [id number] [place] [address] Urea nitrogen 10 mg/dL Normal 7-20 [facility] Comment on above: Performed By: #### H YOLANDA CMP3 ####[address] [place] [address] Potassium molar conc 4.2 mmol/L Normal 3.5-5.1 [facility] Comment on above: Performed By: #### H YOLANDA CMP3 ####[place] [id number] [place] [address] Albumin 4.2 g/dL Normal 3.5-5.0 [facility] Comment on above: Performed By: #### H YOLANDA CMP3 ####[address] [place] [address] Chloride 106 mmol/L Normal 98-107 [facility] Comment on above: Performed By: #### H YOLANDA CMP3 ####[address] [address] Sodium 144 mmol/L Normal 137-145 [facility] Comment on above: Performed By: #### H YOLANDA CMP3 ####[address] [address] Hemogram w/ Autodiffon 02-08 Abs Baso Cnt 0.0 10*3/uL Normal 0.0-0.2 [facility] Comment on above: Performed By: #### H YOLANDA CMP3 ####[address] [address] Abs Neutrophile Cnt 4.4 10*3/uL Normal 1.8-7.0 [facility] Comment on above: Performed By: #### H YOLANDA CMP3 ####[address] [address] Basophils/100 WBC Auto (Bld) 0.5 % Normal 0.0-2.0 [facility] Comment on above: Performed By: #### H YOLANDA CMP3 ####[address] [address] Eosinophils 0.2 10*3/uL Normal 0.0-0.5 [facility] Comment on above: Performed By: #### H YOLANDA CMP3 ####[address] [address] Eosinophils/100 leukocytes 2.5 % Normal 1.0-6.0 [facility] Comment on above: Performed By: #### H YOLANDA CMP3 ####[address] [address] Erythrocyte distribution width Auto Ratio (RBC) 13.0 % Normal 11.5-14.5 [facility] Comment on above: Performed By: #### H YOLANDA CMP3 ####[address] [address] Erythrocytes (RBC) 5.31 10*6/uL Normal 4.40-5.90 [facility] Comment on above: Performed By: #### H YOLANDA CMP3 ####[address] [address] Granulocytes/100 WBC (Bld) 54.6 % Normal 40.0-80.0 [facility] Comment on above: Performed By: #### H YOLANDA CMP3 ####[place] [id number] [place] [address] Hematocrit (HCT) 48.8 % Normal 40.0-52.0 [facility] Comment on above: Performed By: #### H EMDHafsa CMP3 ####[place] [id number] [facility] [place] [address] Hemoglobin mass conc (Bld) 16.7 g/dL Normal 13.0-18.0 [facility] Comment on above: Performed By: #### H YOLANDA CMP3 ####[place] [id number] [place] [address] Lymphocytes 2.6 10*3/uL Normal 1.0-4.3 [facility] Comment on above: Performed By: #### H EMDHafsa CMP3 ####[address] [place] [address] Lymphocytes/100 leukocytes 32.5 % Normal 20.0-40.0 [facility] Comment on above: Performed By: #### H YOLANDA CMP3 ####[address] [place] [address] MCH 31.4 pg Normal 26.0-34.0 [facility] Comment on above: Performed By: #### H EMDHafsa CMP3 ####[address] [place] [address] MCHC mass conc (RBC) 34.2 % Normal 32.0-36.0 [facility] Comment on above: Performed By: #### H YOLANDA CMP3 ####[address] [facility] [place] [address] MCV 91.8 fL Normal 80.0-98.0 [facility] Comment on above: Performed By: #### H EMDHafsa CMP3 ####[place] [id number] [facility] [place] [address] Monocytes 0.8 10*3/uL Normal 0.0-0.8 [facility] Comment on above: Performed By: #### H YOLANDA CMP3 ####[place] [id number] [facility] [place] [address] Monocytes/100 leukocytes 9.9 % Normal 2.0-10.0 [facility] Comment on above: Performed By: #### H YOLANDA CMP3 ####[place] [id number] [place] [address] Platelet mean volume (PMV) 10.2 fL Normal 7.4-10.4 [facility] Comment on above: Performed By: #### H YOLANDA CMP3 ####[place] [id number] [place] [address] Platelets 195 10*3/uL Normal 140-440 [facility] Comment on above: Performed By: #### H YOLANDA CMP3 ####[place] [id number] [place] [address] WBC (Leukocytes) 8.0 10*3/uL Normal 3.6-10.7 [facility] Comment on above: Performed By: #### H YOLANDA CMP3 ####[address] [place] [address] Urinalysis,Macroon 8 Appearance Clear Normal Clear [facility] Comment on above: Performed By: #### U AMAC, UAMIC ####[address] [place] [address] Bilirubin,Ur 1 + Normal Negative [facility] Comment on above: Performed By: #### U AMAC, UAMIC ####[address] [place] [address] Color Yellow Normal Lt. Yellow [facility] Comment on above: Performed By: #### U AMAC, UAMIC ####[place] [id number] [place] [address] Ketone,Urine Negative Normal Negative [facility] Comment on above: Performed By: #### U AMAC, UAMIC ####[place] [id number] [place] [address] Leukocytes Negative Normal Negative [facility] Comment on above: Performed By: #### U AMAC, UAMIC ####[address] [place] [address] Nitrites Negative Normal Negative [facility] Comment on above: Performed By: #### U AMAC, UAMIC ####[address] [place] [address] Occult Blood,Ur Negative Normal Negative [facility] Comment on above: Performed By: #### U AMAC, UAMIC ####[place] [id number] [place] [address] Specific [place],Urine 1.020 Normal 1.005-1.030 [facility] Comment on above: Performed By: #### U AMAC, UAMIC ####[address] [place] [address] Total Protein,Urine Negative Normal Negative [facility] Comment on above: Performed By: #### U AMAC, UAMIC ####[address] [place] [address] Urine, glucose presence NEG (Normal) Normal Negative [facility] Comment on above: Performed By: #### U AMAC, UAMIC ####[address] [place] [address] Urine, pH 6.5 Normal 5.0-8.0 [facility] Comment on above: Performed By: #### U AMAC, UAMIC ####[address] [place] [address] Urobilinogen Normal (0.2) Normal 0-1 [facility] Comment on above: Performed By: #### U AMAC, UAMIC ####[address] [place] [address] Urinalysis,Microscopicon Amorphous Urates Moderate (6-50) Normal Negative [facility] Comment on above: Performed By: #### U AMAC, UAMIC ####[address] [place] [address] Bacteria Few (1-5) Normal Negative [facility] Comment on above: Performed By: #### U AMAC, UAMIC ####[address] [place] [address] Ca Oxylate Crystals Few (1-5) Normal Negative [facility] Comment on above: Performed By: #### U AMAC, UAMIC ####[address] [place] [address] Epithelial Cells Negative Normal 3-5 [facility] Comment on above: Performed By: #### U AMAC, UAMIC ####[facility] [id number] [place] [address] Urine, erythrocytes in sediment by area Negative Normal 0-2 [facility] Comment on above: Performed By: #### U AMAC, UAMIC ####[facility] [address] [place] [address] Urine, leukocytes in sedmiment 0 - 2 Normal 0-5 [facility] [employer] Comment on above: Performed By: #### U AMAC, UAMIC ####[facility] [address] [place] [address] Volume,Urine 12 ml Normal [facility] Comment on above: Performed By: #### U AMAC, UAMIC ####[facility] [address] [place] [address] Vital Signs Date Time Vital Sign Value Performing Clinician Facility 01-21-2025 21:53-0400 Body temperature 100 [degF] Shania Queden PROPERTY [employer] EQUIPMENT CLERK-C Work Phone: [facility] 01-21-2025 21:53-0400 Diastolic blood pressure 83 mm[Hg] Shania Queden PROPERTY AND EQUIPMENT CLERK-C Work Phone: [facility] 01-21-2025 21:53-0400 Heart rate 118 /min Shania Queden PROPERTY AND EQUIPMENT CLERK-C Work Phone: [facility] 01-21-2025 21:53-0400 Respiratory rate 18 /min Shania Queden PROPERTY AND EQUIPMENT CLERK-C Work Phone: [facility] 01-21-2025 21:53-0400 SaO2% (BldA) [Mass fraction] 100 % Shania Queden [employer]ERTY [employer] EQUIPMENT CLERK-C Work Phone: [facility] 01-21-2025 21:53-0400 Systolic blood pressure 130 mm[Hg] Shania Queden PROPERTY AND EQUIPMENT CLERK-C Work Phone: [facility] 01-21-2025 16:05-0400 Body height 175.26 cm Shania Queden PROPERTY AND EQUIPMENT CLERK-C Work Phone: [facility] 01-21-2025 16:05-0400 Body mass index (BMI) [Ratio] 27 kg/m2 Shania Queden [employer]ERTY AND EQUIPMENT CLERK-C Work Phone: [facility] 01-21-2025 16:05-0400 Body weight 83 kg Shania Queden [employer]ERTY AND EQUIPMENT CLERK-C Work Phone: [facility] 01-07-2025 09:57-0400 Body temperature 97.3 [degF] Shania Queden PROPERTY AND EQUIPMENT CLERK-C Work Phone: [facility] 01-07-2025 09:57-0400 Diastolic blood pressure 99 mm[Hg] Shania Queden [employer]ERTY AND EQUIPMENT CLERK-C Work Phone: [facility] 01-07-2025 09:57-0400 Heart rate 90 /min Shania Queden PROPERTY AND EQUIPMENT CLERK-C Work Phone: [facility] 01-07-2025 09:57-0400 Respiratory rate 16 /min Shania Queden PROPERTY AND EQUIPMENT CLERK-C Work Phone: [facility] 01-07-2025 09:57-0400 SaO2% (BldA) [Mass fraction] 99 % Shania Queden PROPERTY AND EQUIPMENT CLERK-C Work Phone: [facility] 01-07-2025 09:57-0400 Systolic blood pressure 101 mm[Hg] Shania Queden PROPERTY AND EQUIPMENT CLERK-C Work Phone: [facility] 01-07-2025 08:42-0400 Body height 175.26 cm Shania Queden PROPERTY AND EQUIPMENT CLERK-C Work Phone: [facility] 01-07-2025 08:42-0400 Body mass index (BMI) [Ratio] 27.1 kg/m2 Shania Queden PROPERTY AND EQUIPMENT CLERK-C Work Phone: [facility] 01-07-2025 08:42-0400 Body weight 83.41 kg Shania Queden PROPERTY AND EQUIPMENT CLERK-C Work Phone: [facility] 01-15-2024 14:37-0400 Body height 177.8 cm Shania Queden ARTIST [employer]NE[employer] COLORING.TITLE DEPARTMENT MANAGER Work Phone: [facility] 01-15-2024 14:37-0400 Body mass index (BMI) [Ratio] 24.54 kg/m2 Shania Queden ARTIST [employer] COLORING.TITLE DEPARTMENT MANAGER Work Phone: [facility] 01-15-2024 14:37-0400 Body temperature 97.9 [degF] Shania Queden ARTIST [employer] COL[employer]ING.TITLE DEPARTMENT MANAGER Work Phone: [facility] 01-15-2024 14:37-0400 Body weight 77.56 kg Shania Queden ARTIST [employer] COLORING.TITLE DEPARTMENT MANAGER Work Phone: [facility] 01-15-2024 14:37-0400 Diastolic blood pressure 62 mm[Hg] Shania Queden ARTIST [employer] COLORING.TITLE DEPARTMENT MANAGER Work Phone: [facility] 01-15-2024 14:37-0400 Heart rate 98 /min Shania Queden ARTIST [employer] COL[employer]ING.TITLE DEPARTMENT MANAGER Work Phone: [facility] 01-15-2024 14:37-0400 Respiratory rate 18 /min Shania Queden ARTIST [employer] COL[employer]ING.TITLE DEPARTMENT MANAGER Work Phone: [facility] 01-15-2024 14:37-0400 SaO2% (BldA) [Mass fraction] 99 % Shania Queden ARTIST [employer] COLORING.TITLE DEPARTMENT MANAGER Work Phone: [facility] 01-15-2024 14:37-0400 Systolic blood pressure 122 mm[Hg] Shania Queden ARTIST [employer] COL[employer]ING.TITLE DEPARTMENT MANAGER Work Phone: [facility] 09-29-2023 06:49-0500 Body temperature 97.8 [degF] [facility] 09-29-2023 06:49-0500 Diastolic blood pressure 72 mm[Hg] [facility] 09-29-2023 06:49-0500 Heart rate 71 /min [facility] 09-29-2023 06:49-0500 Respiratory rate 16 /min [facility] 09-29-2023 06:49-0500 SaO2% (BldA) [Mass fraction] 98 % [facility] 09-29-2023 06:49-0500 Systolic blood pressure 122 mm[Hg] [facility] 09-28-2023 17:12-0500 Body height 177.8 cm [facility] 09-28-2023 17:12-0500 Body mass index (BMI) [Ratio] 26.5 kg/m2 [facility] 09-28-2023 17:12-0500 Body weight 83.91 kg [facility] 04-09-2023 10:29-0400 Body height 177.8 cm Gilda Zavala APRN.TITLE DEPARTMENT MANAGER Work Phone: [facility] 04-09-2023 10:29-0400 Body temperature 97.81 [degF] Gilda Zavala ARTIST [employer] COL[employer]ING.TITLE DEPARTMENT MANAGER Work Phone: [facility] 04-09-2023 10:29-0400 Body weight 82.1 kg Gilda Zavala APRN.TITLE DEPARTMENT MANAGER Work Phone: [facility] 04-09-2023 10:29-0400 Diastolic blood pressure 76 mm[Hg] Gilda Zavala APRN.TITLE DEPARTMENT MANAGER Work Phone: [facility] 04-09-2023 10:29-0400 Heart rate 92 /min Gilda Zavala APRN.TITLE DEPARTMENT MANAGER Work Phone: [facility] 04-09-2023 10:29-0400 SaO2% (BldA) [Mass fraction] 93 % Gilda Zavala APRN.TITLE DEPARTMENT MANAGER Work Phone: [facility] 04-09-2023 10:29-0400 Systolic blood pressure 120 mm[Hg] Gilda Zavala APRN.TITLE DEPARTMENT MANAGER Work Phone: [facility] 12-29-2022 16:55-0400 Body height 177.8 cm Shania Vieira ARTIST [employer]ING.TITLE DEPARTMENT MANAGER Work Phone: [facility] 12-29-2022 16:55-0400 Body temperature 97.9 [degF] Shania Vieira ARTIST [employer] COL[employer]ING.TITLE DEPARTMENT MANAGER Work Phone: [facility] 12-29-2022 16:55-0400 Body weight 79.83 kg Shania Vieira ARTIST [employer] COLORING.TITLE DEPARTMENT MANAGER Work Phone: [facility] 12-29-2022 16:55-0400 Diastolic blood pressure 74 mm[Hg] Shania Butlerden ARTIST [employer] COLORING.TITLE DEPARTMENT MANAGER Work Phone: [facility] 12-29-2022 16:55-0400 Heart rate 91 /min Shania Queden ARTIST [employer] COLORING.TITLE DEPARTMENT MANAGER Work Phone: [facility] 12-29-2022 16:55-0400 SaO2% (BldA) [Mass fraction] 97 % Shania Queden ARTIST [employer]NE[employer] COLORING.TITLE DEPARTMENT MANAGER Work Phone: [facility] 12-29-2022 16:55-0400 Systolic blood pressure 120 mm[Hg] Shania Butlerden ARTIST [employer] COLORING.TITLE DEPARTMENT MANAGER Work Phone: [facility] 12-12-2022 00:10-0400 Diastolic blood pressure 77 mm[Hg] No Pcp Required [facility] Other Phone (unformatted): [phone] 12-12-2022 00:10-0400 Heart rate 96 /min No Pcp Required [facility] Other Phone (unformatted): [phone] 12-12-2022 00:10-0400 Respiratory rate 18 /min No Pcp Required [facility] Other Phone (unformatted): [phone] 12-12-2022 00:10-0400 SaO2% (BldA) [Mass fraction] 100 % No Pcp Required [facility] Other Phone (unformatted): [phone] 12-12-2022 00:10-0400 Systolic blood pressure 113 mm[Hg] No Pcp Required [facility] Other Phone (unformatted): [phone] 2022 22:57-0400 Body height 180.3 cm No Pcp Required [facility] Other Phone (unformatted): [phone] 2022 22:57-0400 Body temperature 96.8 [degF] No [facility] Other Phone (unformatted): [phone] 2022 22:57-0400 Body weight 84 kg No Pcp Required [facility] Other Phone (unformatted): [phone] 05-18-2019 15:46-0400 BMI (Body Mass Index) 26.54 kg/m2 [email or web address] [place] 05-18-2019 15:46-0400 Body Temperature 98.6 [degF] [place], [place] 05-18-2019 15:46-0400 Body weight 83.92 kg [place], [place] 05-18-2019 15:46-0400 BP Diastolic 79 mm[Hg] [place] 05-18-2019 15:46-0400 BP Systolic 118 mm[Hg] [place] 05-18-2019 15:46-0400 Pulse (Heart Rate) 94 /min [place], [place] 05-18-2019 15:46-0400 Pulse Oximetry 99 % [place] 05-18-2019 15:46-0400 Respiratory Rate 20 /min [place] Encounters Encounter Date Encounter Type Care Provider Facility Start: 01-21-2025 Evaluation and manag ement of inpatient Dr. Zechariah Bruno MD -Medical Surgical 3 Work Phone: Start: 01-12-2025 End: 01-12-2025 ambulatory Shania Vieira APRN.CNP Work Phone: [facility] Start: 01-12-2025 End: 01-12-2025 Follow-up encounter Shania Vieira APRN.TITLE DEPARTMENT MANAGER Work Phone: [facility] Comment on above: ED Follow-up ([facility] ED 01/07/2025) Start: 01-07-2025 End: 01-07-2025 Emergency department patient visit Shania Vieira PROPERTY AND EQUIPMENT CLERK-C Work Phone: -Emergency Department Work Phone: Start: 04-21-2024 End: 04-23-2024 Patient Outreach Estephania Lemos [facility] Comment on above: Transition Of Care ( Pt was admitted to [facility] on 04/18/2024 for ISABELLA, COVID-19. Pt was d/c on 04/19/2024) Start: 04-18-2024 ambulatory Shaniaklaus Vieira PROPERTY AND EQUIPMENT CLERK Facil ity:[facility] Start: 04-18-2024 End: 04-19-2024 Evaluation and management of inpatient Shania Vieira PROPERTY AND EQUIPMENT CLERK Facility:[facility] Start: 04-17-2024 End: 04-17-2024 Emergency department patient visit Shania Vieira PROPERTY AND EQUIPMENT CLERK Facility:[facility] Start: 01-28-2024 Telephone encounter Shania Vieira ARTIST [employer] COLORING.TITLE DEPARTMENT MANAGER Work Phone: [facility] Comment on above: Consult Start: 01-15-2024 End: 01-15-2024 Patient encounter procedure Shania Vieira ARTIST [employer] COLORING.TITLE DEPARTMENT MANAGER Work Phone: [facility] Comment on above: Schizoaffective diso rder, unspecified type (HCC) (Primary Dx); Adult ADHD; Auditory hallucinations; Acute psychosis (HCC); Marijuana use; Financial difficulties; Acute pain of left shoulder; Living in temporary quarters Start: 12-21-2023 Telephone encounter Shania A Isha ARTIST [employer] COLORING.TITLE DEPARTMENT MANAGER Work Phone: [facility] Comment on above: Appointment Start: 12-17-2023 ambulatory Estephania Lemos LPN [facility] Start: 10-02-2023 ambulatory Humera Gillis MA [facility] Comment on above: ed outreach (Ed outr each/09/28/2023/[facility] ) Start: 09-28-2023 End: 09-29-2023 Emergency department patient visit [facility]-Emergency Department Work Phone: Start: 07-03-2023 ambulatory Shania Butlerd en ARTIST MANNEQUIN COLORING.TITLE DEPARTMENT MANAGER Work Phone: [facility] Comment on above: ED Outreach ([place] ED 07/01/23) Start: 05-17-2023 ambulatory Shanae Bustamante MA [facility] Start: 04-11-2023 ambulatory Humera Gillis MA [facility] Comment on above: ED outreach (ED outr each /[place] /04/07/2023 ) Start: 04-09-2023 End: 04-09-2023 Patient encounter procedure Gilda Zavala ARTIST [employer]NE[employer] COLORING.TITLE DEPARTMENT MANAGER Work Phone: [facility] Comment on above: Cellulitis of right lower leg (Primary Dx); Itching Start: 01-29-2023 End: 01-29-2023 Emergency department patient visit SHANIAKLAUS BUTLERJOSHUA Facility:[facility] Start: 01-29-2023 End: 01-29-2023 ambulatory SHANIA VIEIRA Facility:[facility] Start: 01-29-2023 End: 01-29-2023 Subsequent hospital visit by physician [facility] Comment on above: Pain [R52] Start: 01-18-2023 Orders Only Humera Hernandez bobby ARTIST [employer] COLORING.TITLE DEPARTMENT MANAGER Work Phone: [facility] Comment on above: Pain (Primary Dx) Start: 01-01-2023 Telephone encounter Shania Vieira ARTIST [employer]NE[employer] COLORING.TITLE DEPARTMENT MANAGER Work Phone: [facility] Comment on above: Results Start: 12-29-2022 End: 12-29-2022 Patient encounter procedure Shania Macie Isha ARTIST [employer] COLORING.TITLE DEPARTMENT MANAGER Work Phone: [facility] Comment on above: Dysuria (Primary Dx) ; Exposure to STD Start: 2022 End: 12-12-2022 Emergency department patient visit Damion Perdue [facility] Other Phone (unformatted): [phone] Start: 08-24-2022 ambulatory Shania Quijano Qued en ARTIST [employer]NE[employer] COLORING.TITLE DEPARTMENT MANAGER Work Phone: [facility] Start: 08-24-2022 Follow-up encounter Shania Vieira ARTIST [employer]NE[employer]IN COLORING.TITLE DEPARTMENT MANAGER Work Phone: [facility] Comment on above: ED Follow Up ([place] E D discharge 08/21/2022 ED outreach ) Start: 01-06-2022 ambulatory Shania Quijano Qued en ARTIST [employer] COLORING.TITLE DEPARTMENT MANAGER Work Phone: [facility] Start: 05-18-2019 End: 05-18-2019 Emergency department patient visit [facility] Comment on above: Encounter for wound re-check (Primary Dx) Start: 02-08-2018 Emergency department patient visit Torrie Goncalves [facility] Procedures Date Procedure Procedure Detail Performing Clinician Start: 01-21-2025 Computed tomography of abdomen and pelvis with intravenous contrast Shania Vieira PROPERTY AND EQUIPMENT CLERK-C Work Phone: Start: 01-21-2025 Estimated creatinine clearance Shania Vieira PROPERTY AND EQUIPMENT CLERK-C Work Phone: Start: 01-21-2025 Urnls dip stick/tabl et reagent auto microscopy Shania Vieira PROPERTY AND EQUIPMENT CLERK-C Work Phone: Start: 09-28-2023 Coronavirus COVID-19 PCR Start: 01-29-2023 Radex shoulder compl ete minimum 2 views Humera Martinez Meredith ARTIST [employer] COLORING.TITLE DEPARTMENT MANAGER Work Phone: Start: 12-29-2022 Urnls dip stick/tabl et rgnt auto w/o microscopy Shania Vieira ARTIST [employer] COLORING.TITLE DEPARTMENT MANAGER Work Phone: Start: 08-24-2020 Adult depression scr eening assessment Shania Vieira ARTIST [employer]NE[employer] COLORING.TITLE DEPARTMENT MANAGER Work Phone: Plan of Treatment Date Care Activity Detail Author Start: 07-01-2033 Urine microalbumin profile DTaP,Tdap,Td Vaccine (8 - Td or Tdap) [facility] Start: 03-30-2025 Influenza vaccination Influenz a Vaccine (Season Ended) [facility] Start: 01-21-2025 Hospital admission, emergency, from emergency room, medical nature [facility] Start: 01-21-2025 Verification routine [facility] Start: 01-21-2025 Admission procedure [facility] Start: 03-30-2024 Covid-19 Vaccine ( season) Covid-19 Vaccine ( season) [facility] Start: 03-30-2024 Covid-19 Vaccine ( season) Covid-19 Vaccine ( season) [facility] Start: 03-30-2024 Influenza vaccination [facility] Start: 02-20-2024 End: 02-20-2024 Patient encounter procedure 02/20/2024 2:00 PM EDT Office Visit Orthopaedics [address] [place] [address] Gisella De Santiago DO [address] [place] [address] shoulder pain, bycicle incident 01/02/24 [facility] Orth[facility] Comment on above: shoulder pain, bycic le incident 01/02/24 [facility] Start: 01-15-2024 End: 01-15-2024 Patient encounter procedure 01/15/2024 2:20 PM EDT Office Visit [facility] [address] [place] [address] Shania Vieira, ARTIST [employer]NEQUIN COLORING.TITLE DEPARTMENT MANAGER [address] [place] [id number] [facility] Start: 12-30-2023 COVID-19 VACCINE (#1) COVID-19 VACCI NE (#1) [facility] Comment on above: Postponed from 06/13 (Declined at this time) Start: 12-12-2023 Lipid panel Lipid Screening [facility] Start: 09-29-2023 [facility] Start: 09-28-2023 Suicide precautions [facility] Start: 07-30-2023 Behavioral Health Screening Behavioral Health Screening [facility] Start: 07-30-2023 [facility] Start: 07-29-2023 [facility] Comment on above: Postponed from 07/30 (Declined at this time) Start: 03-30-2023 Covid-19 Vaccine ( season) Covid-19 Vaccine ( season) [facility] Start: 03-30-2023 Influenza vaccination [facility] Start: 12-29-2022 End: 02-28-2023 SYPHILIS TOTAL W/REFLEX SYPHILIS TOTAL W/REFLEX Lab Routine Exposure to STD Expected: 12/29/2022, Expires: 02/28/2023 [facility] Work Phone: Comment on above: Expected: 12/29/2022 , Expires: 02/28/2023 Start: 07-30-2022 DEPRESSION ASSESSMENT DEPRESSION ASS ESSMENT [facility] Start: 03-30-2022 Influenza vaccination [facility] Start: 08-24-2021 Adult depression screening assessment DEPRESSION SCREENING [facility] Start: 11-11-2020 Urine microalbumin profile [facility] Start: 03-30-2019 Influenza vaccination Flu vaccine (# 1) [place], [place] Start: 12-12-2007 Pneumococcal vaccination Pneumococcal Vaccine (1 of 2 - PCV) [facility] Start: 12-12-2007 Urine microalbumin profile DTAP,TDAP,TD (1 - Tdap) [facility] Start: 2006 Anxiety Screening Anxiety Screening [facility] Start: 2006 Depression Screening Depression Scre ening [facility] Start: 2006 HEPATITIS C SCREENING HEPATITIS C [facility] Start: 2006 Hepatitis C screening Hepatitis C [facility] Start: 2006 HIV SCREENING HIV SCREENING [facility] Start: 2006 HIV screening HIV Screening [facility] Start: 1994 PNEUMOCOCCAL (1 - PCV) PNEUMOCOCCAL (1 - PCV) [facility] Start: 1994 Pneumococcal vaccination [facility] Start: 1993 COVID-19 VACCINE (#1) COVID-19 VACCI NE (#1) [facility] Start: 06-13-1989 COVID-19 VACCINE (#1) COVID-19 VACCI NE (#1) [facility] Start: 1988 HEPATITIS B (1 of 3 - 3-dose series) HEPATITIS B (1 of 3 - 3-dose series) [facility] Chlamydia trachomatis+Neisseria gonorrhoeae DNA [Presence] in Urine by CARLOS with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 service technician provider prior to your ED visit? No 5. Is there anything else I can do for you today? No Kathy Chauhan LPN documented in this encounterUniversity Hospitals Cleveland [facility] Center06-10-2022 History of Present illness Narrative* Geraldine Landin MA - 01/06/2022 4:45 PM EDT ED Follow Up: Left message attempted to reach patient Patient discharged from [facility] ED on 01/03/22. 1. How are [...] you able to contact the office or irrigation service technician provider prior to your ED visit? Left message attempted to reach patient 5. Is there anything else I can do for you today? Left message attempted to reach patient Geraldine Landin MA documented [facility] Author Stephan Burk [facility] Note Date/Time January 07, 2025 9:45 am [facility] Medical Records Department [address] [place] [address] Emergency Department Summary 01/07/25 MR#: [id number] Acct: [id number] Name: GABRIELA VIDAL Jr. Rep #:[id number] : 1990 34 From: Stephan Burk MD [...] Shania Vieira NP Referrals: Shania Vieira NP, PROPERTY AND EQUIPMENT CLERK-C [Primary Care Provider] - 3-5 Days if not improving Activity Restrictions/Additional Instructions: Take the antibiotic Augmentin 1 pill twice a day till gone. Motrin for pain and swelling and Tylenol for pain. Ice and elevate. Follow-up or return if getting worse. Are not improving. Print Language: Andorran Disposition Disposition: Home, Self Care What to do if you have Problems For any increased pain, shortness of breath, bleeding, nausea or vomiting, chestpain, or any unexpected problems, contact your Primary Care Provider. Call [facility] ([phone]) or report to the closest Emergency Room. Call 911 if necessary. 01/07/25 0002 <Electronically signed by Stephan Burk MD> Cosigner Signature (if applicable): CC: PROPERTY AND EQUIPMENT CLERKDioni Vieira ~ Signed [facility] Work Phone: Evaluation note* Diagnosis Dysuria- Primary Exposure to STD Contact with or exposure to other communicable diseases documented in this encounter [facility] note* Diagnosis Pain- Primary Generalized pain documented in this encounter [facility] note* Diagnosis Cellulitis of right lower leg- Primary Cellulitis and abscess of leg, except foot Itching Unspecified pruritic disorder documented in this encounter [facility] noteNo assessment information availableWGlenbeigh Hospital Work Phone: Evaluation note* Diagnosis Schizoaffective disorder, unspecified type (HCC)- Primary Adult ADHD Attention deficit disorder with hyperactivity Auditory hallucinations Hallucinations Acute psychosis (HCC) Unspecified psychosis Marijuana use Cannabis abuse, unspecified Financial difficulties Inadequate material resources Acute pain of left shoulder Living in temporary quarters Other specified housing or economic circumstances documented in this encounter [facility] note* Diagnosis Acute pain of left shoulder- Primary Injury of left shoulder, initial encounter documented in this encounter [facility] note* Diagnosis Pain Generalized pain [facility] Additional Instructions Take the antibiotic Augmentin 1 pill twice a day till gone. Motrin for pain and swelling and Tylenol for pain. Ice and elevate. Follow-up or return if getting worse. Are not improving.[facility] Work Phone: Reason for referral (narrative)* Diagnostic Procedure Only (Routine) - Authorized Specialty Diagnoses / Procedures Referred By Sarahiac julián Referred To Contact XR IMAGING Diagnoses Pain Procedures XR SHOULDER GENERAL 3V OR MORE AP/TRUE AP/OTHER LEFT RADEX SHOULDER COMPLETE MINIMUM 2 VIEWS Humera Harper APRN.CNP [address] [place] [address] Xr Imaging Referral ID Status Reason Start Date Expiration Date Visits Requested Visits Authorized [id number] Authorized Auto-Generat ed Referral 01/18/2023 02/17/2024 1 1 * Diagnostic Procedure Only (Routine) - Authorized Specialty Diagnoses / Procedures Referred By Contac t Referred To Contact XR IMAGING Diagnoses Pain Procedures XR SHOULDER GENERAL 3V OR MORE AP/TRUE AP/OTHER RIGHT RADEX SHOULDER COMPLETE MINIMUM 2 VIEWS Humera Harper APRN.TITLE DEPARTMENT MANAGER [address] [place] [address] Xr Imaging Referral ID Status Reason Start Date Expiration Date Visits Requested Visits Authorized [id number] Authorized Auto-Generat ed Referral 01/18/2023 02/17/2024 1 1 [facility] for referral (narrative)* Diagnostic Procedure Only (Routine) - Closed Specialty Diagnoses / Procedures Referred By Contac t Referred To Contact XR IMAGING Diagnoses Pain Procedures XR SHOULDER GENERAL 3V OR MORE AP/TRUE AP/OTHER LEFT RADEX SHOULDER COMPLETE MINIMUM 2 VIEWS Humera Harper APRN.TITLE DEPARTMENT MANAGER [address] [place] [id number] [place] [address] Referral ID Status Reason Start Date Expiration Date V isits Requested Visits Authorized [id number] Closed Auto-Generate d Referral 01/18/2023 02/17/2024 1 1 * Diagnostic Procedure Only (Routine) - Closed Specialty Diagnoses / Procedures Referred By Contac t Referred To Contact XR IMAGING Diagnoses Pain Procedures XR SHOULDER GENERAL 3V OR MORE AP/TRUE AP/OTHER RIGHT RADEX SHOULDER COMPLETE MINIMUM 2 VIEWS Humera Harper APRN.TITLE DEPARTMENT MANAGER [address] [place] [address] [place] [address] Referral ID Status Reason Start Date Expiration Date V isits Requested Visits Authorized [id number] Closed Auto-Generate d Referral 01/18/2023 02/17/2024 1 1 [facility] for referral (narrative)No reason for referral information [facility] Work Phone: Summary Purpose Family History Relationship Condition Age at Onset Recorded Date/T geo mother Kidney disorder Unknown father Malignant neoplasm Unknown Advance Directives Documents on File Type Date 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 No January 07, 2025 8:41am Advance Directive Response Recorded Date/ Time Do you have a Healthcare Power of Cutlet Maker Pork? No January 07, 2025 8:41am Do you have a Healthcare Power of Cutlet Maker Pork? No January 21, 2025 5:05pm Discharge Instructions * Attachments The following attachments cannot be sent through Care Everywhere. * Wound Check (Andorran) documented in this encounter Assessments Diagnosis Encounter [...] quarters Procedures CONSULT TO SOCIAL WORK AG (HAND TRIMMER) Shania Vieira, ARTIST MANNEQUIN COLORING.TITLE DEPARTMENT MANAGER [address] [place] [address] Referral ID Status Reason Start Date Expiration Date Visits Requested Visits Authorized [id number] Ref Not Required PCP Requested Referral 01/15/2024 04/14/2024 3 3 Specialty Diagnoses / Procedures Referred By Briaan gallego Referred To Contact Orthopedics / [facility] DEPARTMENT Diagnoses Acute pain of left shoulder Injury of left shoulder, initial encounter Procedures CONSULT TO ORTHOPAEDICS OFFICE/OUTPATIENT [facility] 60 MINUTES Shania Vieira APRN.TITLE DEPARTMENT MANAGER [address] [place] [address] Angel Vaz MD [address] [address] Referral ID Status Reason Start Date Expiration Date Visits Requested Visits Authorized [id number] Authorized PCP Requested Referral 01/28/2024 01/27/2025 1 1 Additional Source Comments (unrecognized sect ion and content) No Status Records FoundNo Status Records FoundNo Status Records FoundNo Status Records FoundNo Status Records FoundNo Status Records FoundNo Status Records FoundNo Status Records Found INFORMATION SOURCE (unrecogn ized section and content) DATE CREATED AUTHOR 02/09/2018 [facility] DATE CREATED AUTHOR AUTHOR'S ORGANIZ ATION 01/07/2021 [facility] DATE CREATED AUTHOR AUTHOR'S ORGANIZ ATION 01/07/2022 [facility] DATE CREATED AUTHOR AUTHOR'S ORGANIZ ATION 01/30/2023 [facility] DATE CREATED AUTHOR AUTHOR'S ORGANIZ ATION 02/06/2023 [facility] DATE CREATED AUTHOR AUTHOR'S ORGANIZ ATION 06/03/2023 [facility] DATE CREATED AUTHOR AUTHOR'S ORGANIZ ATION 01/09/2025 [facility] DATE CREATED AUTHOR AUTHOR'S ORGANIZ ATION 01/14/2025 [facility] Reason for Visit (unrecogniz ed section and content) Reason Comments Wound Check Reason Onset Date Comments ED Follow Up 08/24/2022 [place] ED discharg e 08/21/2022 ED outreach Reason Comments STD Wants to be checked for STD . GIRL called and said she had gonorrhea and jazmine. Feels tight clamminess per. Pt. And itches. X 1 month Reason Comments Results Reason Onset Date Comments ED outreach 04/11/2023 ED outreach [place] 04/07/2023 Reason Comments Rash Bilateral legs x 1 w eeks. Hurts Leg Pain X 1 week. Bilateral Reason Onset Date Comments ED Outreach 07/03/2023 [place] [facility] 07/01/23 Reason Onset Date Comments ed outreach 10/02/2023 Ed outreach [id number] Reason Comments Appointment Reason Comments Establish Care Reason Comments Consult Reason Comments Radio Gen RMP Specialty Diagnoses / Procedures Referred By Contac t Referred To Contact XR IMAGING Diagnoses Pain Procedures XR SHOULDER GENERAL 3V OR MORE AP/TRUE AP/OTHER LEFT RADEX SHOULDER COMPLETE MINIMUM 2 VIEWS Humera Harper, ARTIST MANNEQUIN COLORING.TITLE DEPARTMENT MANAGER [address] [place] [address] Xr Imaging [place] [address] Referral ID Status Reason Start Date Expiration Date V isits Requested Visits Authorized [id number] Closed Auto-Generate d Referral 01/18/2023 02/17/2024 1 1 Reason Onset Date Comments Transition Of Care 04/21/2024 Pt was admitt ed to [facility] on 04/18/2024 for ISABELLA, COVID-19. Pt was d/c on 04/19/2024 Reason Onset Date Comments ED Follow-up 01/07/2025 [facility] 2024 Source Comments (unrecognize d section and content) In the event this informatio n is protected by the Federal Confidentiality of Alcohol and Drug Abuse Patient Records regulations: The Federal rules restrict any use of the information to criminally investigate or prosecute any alcohol or drug abuse patient.[facility] the event this information is protected by the Federal Confidentiality of Alcohol and Drug Abuse Patient Records regulations: The Federal rules restrict any use of the information to criminally investigate or prosecute any alcohol or drug abuse patient.[facility] the event this information is protected by the Federal Confidentiality of Alcohol and Drug Abuse Patient Records regulations: The Federal rules restrict any use of the information to criminally investigate or prosecute any alcohol or drug abuse patient.[facility] the event this information is protected by the Federal Confidentiality of Alcohol and Drug Abuse Patient Records regulations: The Federal rules restrict any use of the information to criminally investigate or prosecute any alcohol or drug abuse patient.[facility] the event this information is protected by the Federal Confidentiality of Alcohol and Drug Abuse Patient Records regulations: The Federal rules restrict any use of the information to criminally investigate or prosecute any alcohol or drug abuse patient.[facility] Center[facility] the event this information is protected by the Federal Confidentiality of Alcohol and Drug Abuse Patient Records regulations: The Federal rules restrict any use of the information to criminally investigate or prosecute any alcohol or drug abuse patient.[facility] Center[facility] the event this information is protected by the Federal Confidentiality of Alcohol and Drug Abuse Patient Records regulations: The Federal rules restrict any use of the information to criminally investigate or prosecute any alcohol or drug abuse patient.[facility] Center[facility] the event this information is protected by the Federal Confidentiality of Alcohol and Drug Abuse Patient Records regulations: The Federal rules restrict any use of the information to criminally investigate or prosecute any alcohol or drug abuse patient.[facility] Center[facility] the event this information is protected by the Federal Confidentiality of Alcohol and Drug Abuse Patient Records regulations: The Federal rules restrict any use of the information to criminally investigate or prosecute any alcohol or drug abuse patient.[facility] Center[facility] the event this information is protected by the Federal Confidentiality of Alcohol and Drug Abuse Patient Records regulations: The Federal rules restrict any use of the information to criminally investigate or prosecute any alcohol or drug abuse patient.[facility] CenterIn the event this information is protected by the Federal Confidentiality of Alcohol and Drug Abuse Patient Records regulations: The Federal rules restrict any use of the information to criminally investigate or prosecute any alcohol or drug abuse patient.[facility] Center[facility] the event this information is protected by the Federal Confidentiality of Alcohol and Drug Abuse Patient Records regulations: The Federal rules restrict any use of the information to criminally investigate or prosecute any alcohol or drug abuse patient.[facility] Center[facility] the event this information is protected by the Federal Confidentiality of Alcohol and Drug Abuse Patient Records regulations: The Federal rules restrict any use of the information to criminally investigate or prosecute any alcohol or drug abuse patient.[facility] CenterIn the event this information is protected by the Federal Confidentiality of Alcohol and Drug Abuse Patient Records regulations: The Federal rules restrict any use of the information to criminally investigate or prosecute any alcohol or drug abuse patient.[facility] CenterIn the event this information is protected by the Federal Confidentiality of Alcohol and Drug Abuse Patient Records regulations: The Federal rules restrict any use of the information to criminally investigate or prosecute any alcohol or drug abuse patient.[facility] CenterIn the event this information is protected by the Federal Confidentiality of Alcohol and Drug Abuse Patient Records regulations: The Federal rules restrict any use of the information to criminally investigate or prosecute any alcohol or drug abuse patient.[facility] CenterIn the event this information is protected by the Federal Confidentiality of Alcohol and Drug Abuse Patient Records regulations: The Federal rules restrict any use of the information to criminally investigate or prosecute any alcohol or drug abuse patient.[facility] Care Teams (unrecognized sec tion and content) Refrigerating Engineer Relationship Specialty Start Date End Date Shania Vieira, APOORVA.[facility] [address] [place] [address] PCP - General Family Practice 05/17/20 Refrigerating Engineer Relationship Specialty Start Date End Date Shania Vieira, ARTIST MANNEQUIN COLORING.TITLE DEPARTMENT MANAGER [address] [place] [address] PCP - General Family Medicine 05/17/20 Refrigerating Engineer Relationship Specialty Start Date End Date Shania Vieira, ARTIST MANNEQUIN COLORING.TITLE DEPARTMENT MANAGER [address] [place] [address] PCP - General Family Medicine 05/17/20 Refrigerating Engineer Relationship Specialty Start Date End Date Shania Vieira, ARTIST MANNEQUIN COLORING.TITLE DEPARTMENT MANAGER [address] [place] [address] PCP - General Family Medicine 05/17/20 Refrigerating Engineer Relationship Specialty Start Date End Date Shania Vieira, ARTIST MANNEQUIN COLORING.TITLE DEPARTMENT MANAGER [address] [place] [place] [address] PCP - General Family Medicine 05/17/20 Refrigerating Engineer Relationship Specialty Start Date End Date Shania Vieira, ARTIST MANNEQUIN COLORING.TITLE DEPARTMENT MANAGER [address] [place] [address] PCP - General Family Medicine 05/17/20 Refrigerating Engineer Relationship Specialty Start Date End Date Shania Vieira, ARTIST MANNEQUIN COLORING.TITLE DEPARTMENT MANAGER [address] [place] [address] PCP - General Family Medicine 05/17/20 Refrigerating Engineer Relationship Specialty Start Date End Date Shania Vieira, ARTIST MANNEQUIN COLORING.TITLE DEPARTMENT MANAGER [address] [place] [address] PCP - General Family Medicine 05/17/20 Refrigerating Engineer Relationship Specialty Start Date End Date Shania Vieira, ARTIST MANNEQUIN COLORING.TITLE DEPARTMENT MANAGER [address] [place], [place] [id number] PCP - General Family Medicine 05/17/20 Team Status: Active Member Role Status Dates No Primary Care Physician Primary Care Provider Active Team Status: Inactive Member Role Status Dates Dr. Jose E Meier DO Emergency Provider Active No Primary Care Physician Primary Care Provider Active Refrigerating Engineer Relationship Specialty Start Date End Date Shania Vieira, ARTIST MANNEQUIN COLORING.TITLE DEPARTMENT MANAGER [address] [place] [address] PCP - General Family Medicine 01/15/24 Refrigerating Engineer Relationship Specialty Start Date End Date Shania Vieira ARTIST MANNEQUIN COLORING.TITLE DEPARTMENT MANAGER [address] [place], [place] [id number] PCP - General Family Medicine 01/15/24 Refrigerating Engineer Relationship Specialty Start Date End Date Shania Vieira, ARTIST MANNEQUIN COLORING.TITLE DEPARTMENT MANAGER [address] [place], [place] [id number] PCP - General Family Medicine 05/17/20 12/16/23 Refrigerating Engineer Relationship Specialty Start Date End Date Shania Vieira, ARTIST MANNEQUIN COLORING.TITLE DEPARTMENT MANAGER [address] [place] [address] PCP - General Family Medicine 01/15/24 Team Status: Active Member Role Status Dates Shania Vieira PROPERTY AND EQUIPMENT CLERK, PROPERTY AND EQUIPMENT CLERK-C Primary Care Provider Active Team Status: Inactive Member Role Status Dates Shania Vieira PROPERTY AND EQUIPMENT CLERK, PROPERTY AND EQUIPMENT CLERK-C Primary Care Provider Active Start: January 07, 2025 End: January 07, 2025 Dr. Stephan Burk MD Emergency Provider Active S tart: January 07, 2025 End: January 07, 2025 Refrigerating Engineer Relationship Specialty Start Date End Date Shania Vieira ARTIST MANNEQUIN COLORING.TITLE DEPARTMENT MANAGER [address] [place] [address] PCP - General Family Medicine 01/15/24 Team Status: Inactive Member Role Status Dates Shania Vieira PROPERTY AND EQUIPMENT CLERK, PROPERTY AND EQUIPMENT CLERK-C Primary Care Provider Active Start: January 07, 2025 End: January 07, 2025 Dr. Stephan Burk MD Attending Provider Active S tart: January 07, 2025 End: January 07, 2025 Dr. Stephan Burk MD Emergency Provider Active S tart: January 07, 2025 End: January 07, 2025 Team Status: Active Member Role Status Dates Shania Vieira PROPERTY AND EQUIPMENT CLERK, PROPERTY AND EQUIPMENT CLERK-C Primary Care Provider Active Start: January 21, [...] BE BASED ON THE PRIMARY CLINICAL RECORDS. [facility] [employer] [facility]. provides no warranty or guarantee of the accuracy or completeness of information in this document.
--- OUTSIDE RECORDS SUMMARY | 2025-01-22 06:02 | XMS RPT_ITS | CCD ---
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 (Bld) [Volume fraction] 43.8 % Normal 40-54 [facility] Comment on above: Performed By: #### M 100.637, M196 #### [facility] [address] [place], [address] Hemoglobin (Bld) [Mass/Vol] 14.8 g/dL Normal 13.0-16.5 [facility] Comment on above: Performed By: #### M 100.637, #### [facility] [address] [place], [address] IG% 0.400 Normal 0.0-0.9 [facility] Comment on above: Result Comment: IG% - Immature Granulocytes (promyelocytes, myelocytes and metamyelocytes) > 1% indicates that a LEFT SHIFT is Present. Performed By: #### M 100.637, 96 #### [facility] [address] [place], [address] Lymphocytes/100 WBC (Bld) 6.3 % Low 19-41 [facility] Comment on above: Performed By: #### M 100.637, 96 #### [facility] [address] [place], [address] MCH (RBC) [Entitic mass] 29.5 pg Normal 27.0-32.0 [facility] Comment on above: Performed By: #### M 100.637, 96 #### [facility] [address] [place], [address] MCHC (RBC) [Mass/Vol] 33.8 g/dL Normal 32-36 [facility] Comment on above: Performed By: #### M 100.637, 96 #### [facility] [address] [place], [address] MCV (RBC) [Entitic vol] 87.3 fL Normal 80-94 [facility] Comment on above: Performed By: #### M 100.637, M1.96 #### [facility] [address] [place], [address] Monocytes/100 WBC (Bld) 2.0 % Normal 0-10 [facility] Comment on above: Performed By: #### M 100.637, .96 #### [facility] [address] [place], [address] Neutrophils/100 WBC (Bld) 91.2 % High 47-70 [facility] Comment on above: Performed By: #### M 100.637, 96 #### [facility] [address] [place], [address] Nucleated RBC (Bld) [#/Vol] 0 10*3/uL Normal 0-5 [facility] Comment on above: Performed By: #### M 100.637, .96 #### [facility] [address] [place], [address] Platelet mean volume (Bld) [Entitic vol] 10.2 fL Normal 6.2-12.0 [facility] Comment on above: Performed By: #### M 100.637, .96 #### [facility] [address] [place], [address] Platelets (Bld) [#/Vol] 269 10*3/uL Normal 150-450 [facility] Comment on above: Performed By: #### M 100.637, M1.96 #### [facility] [address] [place], [address] RBC (Bld) [#/Vol] 5.02 10*6/uL Normal 4.6-6.2 [facility] Comment on above: Performed By: #### M 100.637, M100.6796 #### [facility] [address] [place], [address] RDW SD 42.8 fl Normal 35.1-43.9 [facility] Comment on above: Performed By: #### M 100.637, M100.6796 #### [facility] [address] [place], [address] WBC (Bld) [#/Vol] 16.6 10*3/uL High 4.4-11.0 [facility] Comment on above: Performed By: #### M 100.637, M100.6796 #### [facility] [address] [place], [address] SMEAR COMMENT SCANNED Normal [facility] Comment on above: Result Comment: NEUT ROPHILLIA PRESENT Performed By: #### L 100.0100, L501.2450, L500.2500, L500.3400, L501.5200 #### [facility] [address] [place], [address] CDIFF (PCR)on 04-18-2024 CDIFF Is the patient receiving laxatives? N New/unexplained onset of 3 or more stools in past 24 hrs? Y Pending 027 027 NAP1-B1 Presumptive Negative *for epidemiolologic???use C. Diff PCR Negative- No toxigenic C. Diff Detected Normal [facility] Comment on above: Performed By: #### M 100.637, M100.6796 #### [facility] [address] [place], [address] CPK Total, Creatine Kinaseon 04-18-2024 CPK TOTAL 790 U/L High 39-308 [facility] Comment on above: Order Comment: Comme nts: add to ED labs Performed By: #### L 501.2550 #### [facility] [address] [place], [address] CRPon 04-18-2024 C-REACTIVE PROT 2.95 mg/L Normal 0.0-3.0 [facility] Comment on above: Order Comment: Comme nts: May add to ED labsmay add to ED labs Result Comment: C-Re active Protein (CRP) provides useful information for the diagnosis, therapy and monitoring of inflammatory processes and associated diseases. For the evaluation of Relative Risk for Cardiovascular Disease, a High Sensitivity CRP (HSCRP) should be ordered. Performed By: #### M 100.637, M100.6796 #### [facility] [address] [place], [address] Comprehensive Metabolic Prof ilon 04-18-2024 Albumin [Mass/Vol] 3.8 g/dL Normal 3.2-5.0 [facility] Comment on above: Performed By: #### M 100.637, M100.6796 #### [facility] [address] [place], [address] Albumin/Globulin [Mass ratio] 1.2 {ratio} Normal 0.9-2.4 [facility] Comment on above: Performed By: #### M 100.637, M100.6796 #### [facility] [address] [place], [address] ALK P 72 U/L Normal 45-117 [facility] Comment on above: Performed By: #### M 100.637, M100.6796 #### [facility] [address] [place], [address] ALT [Catalytic activity/Vol] 51 U/L Normal 16-61 [facility] Comment on above: Performed By: #### M 100.637, M100.6796 #### [facility] [address] [place], [address] AST [Catalytic activity/Vol] 62 U/L High 15-37 [facility] Comment on above: Performed By: #### M 100.637, M100.96 #### [facility] [address] [place], [address] Bilirubin [Mass/Vol] 1.00 mg/dL Normal 0.20-1.00 [facility] Comment on above: Result Comment: For patients on eltrombopag therapy, use of Dimension [place] TBIL is not recommended. Performed By: #### M 100.637, M100.96 #### [facility] [address] [place], [address] BUN/CRE 14.6 RATIO Normal 10-20 [facility] Comment on above: Performed By: #### M 100.637, M1.96 #### [facility] [address] [place], [address] CA,Total 8.9 mg/dL Normal 8.5-10.1 [facility] Comment on above: Performed By: #### M 100.637, M100.96 #### [facility] [address] [place], [address] Chloride [Moles/Vol] 109 mmol/L High 98-107 [facility] Comment on above: Performed By: #### M 100.637, M100.96 #### [facility] [address] [place], [address] CO2 [Moles/Vol] 20.0 mmol/L Low 21.0-32.0 [facility] Comment on above: Performed By: #### M 100.637, M100.6796 #### [facility] [address] [place], [address] Creatinine [Mass/Vol] 1.64 mg/dL High 0.70-1.30 [facility] Comment on above: Result Comment: The validity of the calculated GFR GFRAA in patients over 70 years has not been determined. Clinical correlation is essential. Performed By: #### M 100.637, M100.96 #### [facility] [address] [place], [address] ECRCL 66.96 ml/min Normal [facility] Comment on above: Performed By: #### M 100.637, M100.96 #### [facility] [address] [place], [address] EST GFR - AA 62 mL/min Normal >60 [facility] Comment on above: Result Comment: Afri can [place] GFR Calc Performed By: #### M 100.637, M1.96 #### [facility] [address] [place], [address] GAP 10 Normal 5-15 [facility] Comment on above: Performed By: #### M 100.637, .96 #### [facility] [address] [place], [address] GFR/1.73 sq M.predicted among non-blacks MDRD (S/P/Bld) [Vol rate/Area] 51 mL/min/{1.73_m2} Low >60 [facility] Comment on above: Result Comment: Non- GFR Calc Performed By: #### M 100.637, M1.96 #### [facility] [address] [place], [address] Globulin (S) [Mass/Vol] 3.1 g/dL Normal 2.2-4.2 [facility] Comment on above: Performed By: #### M 100.637, M100.96 #### [facility] [address] [place], [address] Glucose [Mass/Vol] 116 mg/dL High 74-106 [facility] Comment on above: Result Comment: Fast ing Glucose result from 100 to 125 mg/dL suggests IMPAIRED HOMEOSTASIS per A.D.A. criteria. Performed By: #### M 100.637, M100.6796 #### [facility] [address] [place], [address] Potassium [Moles/Vol] 4.2 mmol/L Normal 3.5-5.1 [facility] Comment on above: Performed By: #### M 100.637, M100.6796 #### [facility] [address] [place], [address] Sodium [Moles/Vol] 139 mmol/L Normal 136-145 [facility] Comment on above: Performed By: #### M 100.637, M100.6796 #### [facility] [address] [place], [address] T PROT 6.9 g/dL Normal 6.4-8.2 [facility] Comment on above: Performed By: #### M 100.637, M100.96 #### [facility] [address] [place], [address] Urea nitrogen [Mass/Vol] 24 mg/dL High 7-18 [facility] Comment on above: Performed By: #### M 100.637, M100.6796 #### [facility] [address] [place], [address] D-Dimer Quantitative (DVT/PE )on 04-18-2024 D-DIMER QUANT 0.39 FEU/ug/m Normal 0.27-0.49 [facility] Comment on above: Result Comment: NORM AL D-Dimer level (<0.50) indicates no DVT or PE. Performed By: #### M 100.637, M100.6796 #### [facility] [address] [place], [address] Emergency Department Summary on 04-18-2024 Emergency Department Summary [facility] Medical Records Department [address] [place] [address] Emergency Department Summary 04/18/24 MR#: [id number] Acct: [id number] Name: GABRIELA VIDAL Jr. Rep #: [id number] : 1990 33 From: Esteban Medel DO [...] viral st (more content not included)... Normal [facility] Erythrocyte Sed Rateon 04-18 SED RATE Normal 0-20 [facility] Comment on above: Result Comment: JIMMY ASKEW,RN AWARE OF CANCELLING, SHE WILL INFORM Performed By: #### M 100630, M100.6796 #### [facility] [address] [place], [place], [address] Ferritinon 04-18-2024 Ferritin [Mass/Vol] 175 ng/mL Normal 26-388 [facility] Comment on above: Order Comment: Comme nts: May add to ED labsmay add to ED labs Performed By: #### M 100.222, M100.8896 #### [facility] [address] [place], [address] H AND P Exam - Hospitaliston 04-18-2024 H&P Exam - Hospitalist [facility] Medical Records Department [address] [facility] [place] [address] H P Exam - Hospitalist 04/18/24 0228 MR#: [id number] Acct: [id number] Name: GABRIELA VIDAL Rep #: [id number] : 1990 33 From: Lucero Vidal MD PCP: ELOISA Braden Status:ADM IN [place] [facility] HPI - General General Date of Admission: 04/18/24 Date of Service: 04/18/24 Chief Complaint: N/V/D HPI Narrative The patient is a 33 y/o M w/ PMHx: Anxiety and Depression/Mood disorder/High suspicion underlying schizophrenia with history of frequent auditory hallucinations, Tobacco use, CKD stage II per GFR trending, History of Polysubstance abuse (Fentanyl, Methamphetamines per prior records) who presents to the [facility] ED on 04/18/24 with history of [...] Examination: Genera (more content not included)... Normal [facility] HIV - WCHon 04-18-2024 HIV Non-Reactive Normal Nonreactive [facility] Comment on above: Order Comment: Reaso n for Exam: Hx polysubstance abuseReason for Exam: Hepatitis Screen Performed By: #### L 509.8000, L3890.6005, L3890.6100, L3890.6200, L3890.6300 ####[facility] [address] [place], [place], [id number] Hepatitis B Surface Antibody on 04-18-2024 HEP B Surf Ab Non-Reactive Normal [facility] Comment on above: Order Comment: Reaso n for Exam: Hx polysubstance abuseReason for Exam: Hepatitis Screen Result Comment: Non Reactive: Inconsistent with immunity less than <10 mIU/mL Reactive: Consistent with immunity greater than or equal to 10 mIU/mL Performed By: #### L 509.8000, L3890.6005, L3890.6100, L3890.6200, L3890.6300 ####[facility] [address] [place], [place], [address] Hepatitis B Surface Antigeno n 04-18-2024 HEP B Surf Ag Non-Reactive Normal Nonreactive [facility] Comment on above: Order Comment: Reaso n for Exam: Hx polysubstance abuseReason for Exam: Hepatitis Screen Performed By: #### L 509.8000, L3890.6005, L3890.6100, L3890.6200, L3890.6300 ####[facility] [address] [place], [address] Hepatitis C Antibodyon 04-18 Hepatitis C AB Non-Reactive Normal Nonreactive [facility] Comment on above: Order Comment: Reaso n for Exam: Hx polysubstance abuseReason for Exam: Hepatitis Screen Result Comment: Non Reactive: < 0.8 Equivocal: >/= 0.8 to < 1.0 Reactive: >/= 1.0 The CDC requires that a reactive/equivocal HCV antibody result be sent out for confirmation. HCV Quant by PCR testing. Performed By: #### L 509.8000, L3890.6005, L3890.6100, L3890.6200, L3890.6300 ####[facility] [address] [place], [place], [address] L509.8000on 04-18-2024 Syphilis Abs Non-Reactive Normal [facility] Comment on above: Order Comment: Reaso n for Exam: Hx polysubstance abuseReason for Exam: Hepatitis Screen Performed By: #### L 509.8000, L3890.6005, L3890.6100, L3890.6200, L3890.6300 ####[facility] [address] [place], [address] LDHon 04-18-2024 LDH 338 U/L High 87-241 [facility] Comment on above: Order Comment: Comme nts: May add to ED labsmay add to ED labs Performed By: #### M 100.637, M100.6796 #### [facility] [address] [place], [address] Lipaseon 04-18-2024 Lipase [Catalytic activity/Vol] 17 U/L Normal 13-75 [facility] Comment on above: Result Comment: Aniyah castañeda note: LIPASE revised reference range effective 22. New Lipase methodology. Expected to produce lower values than the previous assay method. NEW Reference Range: 13 - 75 U/L Performed By: #### L 100.0100, L501.2450, L500.2500, L500.3400, L501.5200 #### [facility] [address] [place], [address] Liver Profileon 04-18-2024 Albumin [Mass/Vol] 4.8 g/dL Normal 3.2-5.0 [facility] Comment on above: Performed By: #### L 100.0100, L501.2450, L500.2500, L500.3400, L501.5200 #### [facility] [address] [place], [address] ALK P 85 U/L Normal 45-117 [facility] Comment on above: Performed By: #### L 100.0100, L501.2450, L500.2500, L500.3400, L501.5200 #### [facility] [address] [place], [address] ALT [Catalytic activity/Vol] 61 U/L Normal 16-61 [facility] Comment on above: Performed By: #### L 100.0100, L501.2450, L500.2500, L500.3400, L501.5200 #### [facility] [address] [place], [address] AST [Catalytic activity/Vol] 59 U/L High 15-37 [facility] Comment on above: Performed By: #### L 100.0100, L501.2450, L500.2500, L500.3400, L501.5200 #### [facility] [address] [place], [address] Bilirubin [Mass/Vol] 1.50 mg/dL High 0.20-1.00 [facility] Comment on above: Result Comment: For patients on eltrombopag therapy, use of Dimension [place] TBIL is not recommended. Performed By: #### L 100.0100, L501.2450, L500.2500, L500.3400, L501.5200 #### [facility] [address] [place], [address] Bilirubin.direct [Mass/Vol] 0.37 mg/dL High 0.00-0.30 [facility] Comment on above: Performed By: #### L 100.0100, L501.2450, L500.2500, L500.3400, L501.5200 #### [facility] [address] [place], [address] Globulin (S) [Mass/Vol] 3.6 g/dL Normal 2.2-4.2 [facility] Comment on above: Performed By: #### L 100.0100, L501.2450, L500.2500, L500.3400, L501.5200 #### [facility] [address] [place], [address] T PROT 8.4 g/dL High 6.4-8.2 [facility] Comment on above: Performed By: #### L 100.0100, L501.2450, L500.2500, L500.3400, L501.5200 #### [facility] [address] [place], [address] M100.678on 04-18-2024 M100.678 Copy of report sent to Infection Control Printer MS#[id number] 04/18/24 1335 ERICKA. CRITICAL VALUE CALLED TO LSPARR 04/18/24 0122 Abundio Leon. RESULTS READ BACK BY SAME. SARS-CoV-2 (COVID 19) A Positive A INFLUENZA A Negative INFLUENZA B Negative RSV PCR Negative SARS-CoV-2 (COVID 19 PCR) Normal [facility] Comment on above: Performed By: #### M 100.678 ####[facility] [address] [place], [address] Magnesiumon 04-18-2024 Magnesium [Mass/Vol] 2.2 mg/dL Normal 1.6-2.6 [facility] Comment on above: Performed By: #### L 100.0100, L501.2450, L500.2500, L500.3400, L501.5200 #### [facility] [address] [place], [address] Procalcitoninon 04-18-2024 Procalcitonin 3.46 ng/mL High 0.00-0.09 [facility] Comment on above: Result Comment: A [...] Performed By: #### M 100.637, M196 #### [facility] [address] [place], [address] Urine Drug Screen (VISTA)on 04-18-2024 AMPHETAMINES Positive Abnormal <1000 ng/mL [facility] Comment on above: Performed By: #### M 100.637, 96 #### [facility] [address] [place], [address] BARBITIURATES Negative Normal < 200 ng/mL [facility] Comment on above: Performed By: #### M 100.637, 96 #### [facility] [address] [place], [address] BENZODIAZIPINE Negative Normal < 200 ng/mL [facility] Comment on above: Performed By: #### M 100.63, 96 #### [facility] [address] [place], [address] COCAINE Negative Normal < 300 ng/mL [facility] Comment on above: Performed By: #### M 100.637, 96 #### [facility] [address] [place], [address] ECSTACY Positive Abnormal < 500 ng/mL [facility] Comment on above: Performed By: #### M 100.637, 96 #### [facility] [address] [place], [address] METHADONE Negative Normal < 300 ng/mL [facility] Comment on above: Performed By: #### M 100.637, M196 #### [facility] [address] [place], [address] OPIATES Negative Normal < 300 ng/mL [facility] Comment on above: Performed By: #### M 100.637, M100.6796 #### [facility] [address] [place], [place], [address] PCP Negative Normal < 25 ng/mL [facility] Comment on above: Performed By: #### M 100.637, M100.6796 #### [facility] [address] [place], [place], [address] THC Positive Abnormal < 50 ng/mL [facility] Comment on above: Performed By: #### M 100.637, M100.6796 #### [facility] [address] [place], [place], [address] VISTA UDS PH 3 Normal [facility] Comment on above: Performed By: #### M 100.637, M100.6796 #### [facility] [address] [place], [place], [id number] CNPLindy 01-28-2024 MARTHA Telephone (AGFAMPLE) GABRIELA VIDAL JR. ([id number]) 1990 M Date Time Provider Department 01/28/24 [...] Date Reviewed: 01/15/2024 Reviewed by: Shania Vieira APRN.OBSTETRICAL TECH - Fully Assessed Reason for Visit: Consult [502] Primary Visit Diagnosis:Acute pain of left shoulder [M25.512] Other Visit Diagnosis:Injury of left shoulder, initial encounter [S49.92XA] Order(s):CONSULT TO ORTHOPAEDICS [9094] Order #: [id number]: 1 FUTURE Prescriptions as of 01/28/2024 - [...] Status:Closed by SHANIA VIEIRA on 01/28/24 Normal [facility] Absolute lymphocyte countOrd ered By: Jose E Meier on 09-28-2023 Lymphocytes Auto (Unsp spec) [#/Vol] 1.95 10*3/uL 0.83-4.51 [facility] Automated lymphocyte count a s percentage of total leukocytesOrdered By: Jose E Meier on 09-28-2023 Lymphocytes/100 WBC Auto (Unsp spec) 19.5 % 19-41 [facility] Basophil percentageOrdered B y: Jose E Meier on 09-28-2023 Basophils/100 WBC (Bld) 0.5 % 0-1 [facility] Chloride [Moles/Vol] 113 mmol/L 98-107 [facility] Eosinophils/100 WBC (Bld) 0.3 % 0-5 [facility] Glucose [Mass/Vol] 114 mg/dL 74-106 [facility] Comment on above: Fasting Glucose resu lt from 100 to 125 mg/dL suggests IMPAIRED HOMEOSTASIS per A.D.A. criteria. Hemoglobin (Bld) [Mass/Vol] 14.9 g/dL 13.0-16.5 [facility] Monocytes/100 WBC (Bld) 5.9 % 0-10 [facility] Neutrophils (Bld) [#/Vol] 7.3 10*3/uL 2.0-7.7 [facility] Neutrophils/100 WBC (Bld) 73.3 % 47-70 [facility] Potassium [Moles/Vol] 3.7 mmol/L 3.5-5.1 [facility] Sodium [Moles/Vol] 143 mmol/L 136-145 [facility] WBC (Bld) [#/Vol] 10.0 10*3/uL 4.4-11.0 [facility] Determination of erythrocyte mean corpuscular volume (MCV)Ordered By: Jose E Meier on 09-28-2023 MCV (RBC) [Entitic vol] 89.6 fL 80-94 [facility] Erythrocyte distribution wid th ratioOrdered By: Jose E Meier on 09-28-2023 Erythrocyte distribution width (RBC) [Ratio] 12.3 % 11.6-14.6 [facility] Erythrocyte distribution wid th standard deviationOrdered By: Jose E Meier on 09-28-2023 Erythrocyte distribution width (RBC) [Entitic vol] 40.1 fL 35.1-43.9 [facility] Hematocrit Auto (Bld) [Volum e fraction]Ordered By: Jose E Meier on 09-28-2023 Hematocrit (Bld) [Volume fraction] 44.8 % 40-54 [facility] Immature granulocytes/100 WB C Auto (Bld)Ordered By: Jose E Meier on 09-28-2023 Immature granulocytes/100 WBC (Bld) 0.500 % 0.0-0.9 [facility] Comment on above: IG% - Immature Granu locytes (promyelocytes, myelocytes and metamyelocytes) > 1% indicates that a LEFT SHIFT is Present. Laboratory - Chemistry and C hemistry - challengeOrdered By: Jose E Meier on 09-28-2023 CO2 [Moles/Vol] 28.0 mmol/L 21.0-32.0 [facility] Urea nitrogen/Creatinine [Mass ratio] 15.7 mg/mg 10-20 [facility] - Drug toxicology Ordered By: Jose E Meier on 09-28-2023 Amphetamines Ql (U) Negative <1000 ng/mL [facility] Benzodiazepines Ql (U) Negative < 200 ng/mL [facility] Cannabinoids Screen Ql (U) Positive < 50 ng/mL [facility] Cocaine Ql (U) Negative < 300 ng/mL [facility] Opiates Ql (U) Negative < 300 ng/mL [facility] - Hematology and Cell countsOrdered By: Jose E Meier on 09-28-2023 MCH (RBC) [Entitic mass] 29.8 pg 27.0-32.0 [facility] MCHC (RBC) [Mass/Vol] 33.3 g/dL 32-36 [facility] Nucleated RBC/100 WBC (Bld) [Ratio] 0 % 0-5 [facility] Platelet mean volume (Bld) [Entitic vol] 10.8 fL 6.2-12.0 [facility] Platelets (Bld) [#/Vol] 256 10*3/uL 150-450 [facility] - Microbiology an d Antimicrobial susceptibilityOrdered By: Jose E Meier on 09-28-2023 SARS-CoV-2 (COVID-19) RNA CARLOS+probe Ql (Unsp spec) [facility] No Panel InformationOrdered By: Jose E Meier on 09-28-2023 Estimated Creatinine Clearance Calc 105.36 ml/min [facility] Estimated GFR (MDRD) Amer 107 mL/min >60 [facility] Comment on above: GFR Calc Estimated GFR (MDRD) Non-Af Amer 88 mL/min >60 [facility] Comment on above: Non- GFR Calc Ethyl Alcohol Level 4.0 mg/dL [facility] Comment on above: The serum:whole bloo d ethanol ratio is approximately 1.14and varies slightly with hematocrit. Medical Alcohol reference interval and critical value innon-tolerant individuals; 50 - 100 Impairment 100 Intoxication 100 - 250 Severe Poisoning 250 - 400 Deep/possible fatal coma MDMA (Ecstasy) Screen Negative < 500 ng/mL [facility] Urine Barbiturates Screen Negative < 200 ng/mL [facility] Urine Drug Screen Comment [facility] Comment on above: CONFIRMATORY TESTING FOR [...] Methadone Screen Negative < 300 ng/mL [facility] RBC Auto (Bld) [#/Vol]Ordere d By: Jose E Meier on 09-28-2023 RBC (Bld) [#/Vol] 5.00 10*6/uL 4.6-6.2 [facility] Serum or plasma calcium jacob urement (mass/volume)Ordered By: Jose E Meier on 09-28-2023 Calcium [Mass/Vol] 8.7 mg/dL 8.5-10.1 [facility] Serum or plasma creatinine m easurement (mass/volume)Ordered By: Jose E Meier on 09-28-2023 Creatinine [Mass/Vol] 1.02 mg/dL 0.70-1.30 [facility] Comment on above: The validity of the calculated GFR & GFRAA in patients over 70 years has not been determined. Clinical correlation is essential. Serum or plasma urea nitroge n measurement (mass/volume)Ordered By: Jose E Meier on 09-28-2023 Urea nitrogen [Mass/Vol] 16 mg/dL 7-18 [facility] Thin prep Papanicolaou smear with manual screeningOrdered By: Jose E Meier on 09-28-2023 Thin prep Papanicolaou smear with manual screening 2 5-15 [facility] Urine phencyclidine (PCP) de tectionOrdered By: Joes E Meier on 09-28-2023 Phencyclidine Ql (U) Negative < 25 ng/mL [facility] ALLIED HEALTHon 01-29-2023 ALLIED HEALTH HNO ID: [id number] Author: RT Latoya(R) Service: Radiology Author Type: Advertising Clerk Type: Allied Health Filed: 01/29/2023 1:10 PM [...] 29, 2023 1:10 PM Normal [facility] CBC W Auto Differential pane l (Bld)on 01-29-2023 Basophils (Bld) [#/Vol] 0.03 10*3/uL Normal <0.11 [facility] Comment on above: Order Comment: Speci men Type: BLOOD SPECIMEN Ordering Facility: [facility] Address: [address] [place] [address] Performed By: #### 5 7021-8 #### [facility] CLIA [id number] [address] [place] [address] [place] Basophils/100 WBC (Bld) 0.5 % Normal [facility] Comment on above: Order Comment: Speci men Type: BLOOD SPECIMEN Ordering Facility: [facility] Address: [address] [place] [address] Performed By: #### 5 7021-8 #### [facility] CLIA [id number] [address] [place] [address] [place] Differential cell count method Nom (Bld) Auto Normal [facility] Comment on above: Order Comment: Speci men Type: BLOOD SPECIMEN Ordering Facility: [facility] Address: [address] [address] Performed By: #### 5 7021-8 #### [facility] CLIA [id number] [place] [address] [place] Eosinophils (Bld) [#/Vol] 0.16 10*3/uL Normal <0.46 [facility] Comment on above: Order Comment: Speci men Type: BLOOD SPECIMEN Ordering Facility: [facility] Address: [address] [address] Performed By: #### 5 7021-8 #### [facility] CLIA [id number] [address] [place] [address] [place] Eosinophils/100 WBC (Bld) 2.4 % Normal [facility] Comment on above: Order Comment: Speci men Type: BLOOD SPECIMEN Ordering Facility: [facility] Address: [address] [place] [address] Performed By: #### 5 7021-8 #### [facility] CLIA [id number] [address] [place] [address] [place] Erythrocyte distribution width (RBC) [Ratio] 12.7 % Normal 11.5-15.0 [facility] Comment on above: Order Comment: Speci men Type: BLOOD SPECIMEN Ordering Facility: [facility] Address: [address] [place] [address] Performed By: #### 5 7021-8 #### [facility] CLIA [id number] [address] [place] [address] [place] Hematocrit (Bld) [Volume fraction] 39.3 % Normal 39.0-51.0 [facility] Comment on above: Order Comment: Speci men Type: BLOOD SPECIMEN Ordering Facility: [facility] Address: [address] [place] [address] Performed By: #### 5 7021-8 #### [facility] CLIA [id number] [place] [address] [place] Hemoglobin (Bld) [Mass/Vol] 13.1 g/dL Normal 13.0-17.0 [facility] Comment on above: Order Comment: Speci men Type: BLOOD SPECIMEN Ordering Facility: [facility] Address: [address] [place] [address] Performed By: #### 5 7021-8 #### [facility] CLIA [id number] [place] [address] [place] Immature granulocytes (Bld) [#/Vol] 0.03 10*3/uL Normal <0.10 [facility] Comment on above: Order Comment: Speci men Type: BLOOD SPECIMEN Ordering Facility: [facility] Address: [address] [place] [address] Performed By: #### 5 7021-8 #### [facility] [place] [id number] [address] [place] [address] [place] Immature granulocytes/100 WBC (Bld) 0.5 % Normal [facility] Comment on above: Order Comment: Speci men Type: BLOOD SPECIMEN Ordering Facility: [facility] Address: [address] [place] [address] Performed By: #### 5 7021-8 #### [facility] [place] [id number] [address] [place] [address] [place] Lymphocytes (Bld) [#/Vol] 3.11 10*3/uL Normal 1.00-4.00 [facility] Comment on above: Order Comment: Speci men Type: BLOOD SPECIMEN Ordering Facility: [facility] Address: [address] [place] [address] Performed By: #### 5 7021-8 #### [facility] CLIA [id number] [address] [place] [address] [place] Lymphocytes/100 WBC (Bld) 47.3 % Normal [facility] Comment on above: Order Comment: Speci men Type: BLOOD SPECIMEN Ordering Facility: [facility] Address: [address] [address] Performed By: #### 5 7021-8 #### [facility] CLIA [id number] [address] [place] [address] MCH (RBC) [Entitic mass] 30.0 pg Normal 26.0-34.0 [facility] Comment on above: Order Comment: Speci men Type: BLOOD SPECIMEN Ordering Facility: [facility] Address: [address] [address] Performed By: #### 5 7021-8 #### [facility] CLIA [id number] [address] [place] [address] [place] MCHC (RBC) [Mass/Vol] 33.3 g/dL Normal 30.5-36.0 [facility] Comment on above: Order Comment: Speci men Type: BLOOD SPECIMEN Ordering Facility: [facility] Address: [address] [address] Performed By: #### 5 7021-8 #### [facility] CLIA [id number] [address] [place] [address] [place] MCV (RBC) [Entitic vol] 90.1 fL Normal 80.0-100.0 M [facility] Comment on above: Order Comment: Speci men Type: BLOOD SPECIMEN Ordering Facility: [facility] Address: [address] [address] Performed By: #### 5 7021-8 #### [facility] CLIA [id number] [address] [place] [address] [place] Monocytes (Bld) [#/Vol] 0.65 10*3/uL Normal <0.87 [facility] Comment on above: Order Comment: Speci men Type: BLOOD SPECIMEN Ordering Facility: [facility] Address: [address] [address] Performed By: #### 5 7021-8 #### [facility] CLIA [id number] [address] [place], [place] [address] [place] Monocytes/100 WBC (Bld) 9.9 % Normal [facility] Comment on above: Order Comment: Speci men Type: BLOOD SPECIMEN Ordering Facility: [facility] Address: [address] [place] [address] Performed By: #### 5 7021-8 #### [facility] CLIA [id number] [place] [address] [place] Neutrophils (Bld) [#/Vol] 2.59 10*3/uL Normal 1.45-7.50 [facility] Comment on above: Order Comment: Speci men Type: BLOOD SPECIMEN Ordering Facility: [facility] Address: [address] [place] [address] Performed By: #### 5 7021-8 #### [facility] CLIA [id number] [address] [place] [address] [place] Neutrophils/100 WBC (Bld) 39.4 % Normal [facility] Comment on above: Order Comment: Speci men Type: BLOOD SPECIMEN Ordering Facility: [facility] Address: [address] [place] [address] Performed By: #### 5 7021-8 #### [facility] CLIA [id number] [address] [place] [address] [place] Nucleated RBC (Bld) [#/Vol] 10*3/uL Normal <0.01 [facility] Comment on above: Order Comment: Speci men Type: BLOOD SPECIMEN Ordering Facility: [facility] Address: [address] [place] [address] Performed By: #### 5 7021-8 #### [facility] CLIA [id number] [address] [place] [address] [place] Nucleated RBC/100 WBC (Bld) [Ratio] 0.0 /100 WBC Normal [facility] Comment on above: Order Comment: Speci men Type: BLOOD SPECIMEN Ordering Facility: [facility] Address: [address] [place] [address] Performed By: #### 5 7021-8 #### [facility] CLIA [id number] [place] [address] [place] Platelet mean volume (Bld) [Entitic vol] 10.9 fL Normal 9.0-12.7 [facility] Comment on above: Order Comment: Speci men Type: BLOOD SPECIMEN Ordering Facility: [facility] Address: [address] [place] [address] Performed By: #### 5 7021-8 #### [facility] CLIA [id number] [place] [address] [place] Platelets (Bld) [#/Vol] 209 10*3/uL Normal 150-400 [facility] Comment on above: Order Comment: Speci men Type: BLOOD SPECIMEN Ordering Facility: [facility] Address: [address] [place] [address] Performed By: #### 5 7021-8 #### [facility] CLIA [id number] [address] [place] [address] [place] RBC (Bld) [#/Vol] 4.36 10*6/uL Normal 4.20-6.00 [facility] Comment on above: Order Comment: Speci men Type: BLOOD SPECIMEN Ordering Facility: [facility] Address: [address] [place] [address] Performed By: #### 5 7021-8 #### [facility] CLIA [id number] [address] [place] [address] [place] WBC (Bld) [#/Vol] 6.57 10*3/uL Normal 3.70-11.00 [facility] Comment on above: Order Comment: Speci men Type: BLOOD SPECIMEN Ordering Facility: [facility] Address: [address] [place] [address] Performed By: #### 5 7021-8 #### [facility] CLIA [id number] [address] [place] [address] [place] Comprehensive metabolic 2000 panelon 01-29-2023 Albumin [Mass/Vol] 3.6 g/dL Low 3.9-4.9 [facility] Comment on above: Order Comment: Speci men Type: BLOOD SPECIMEN Ordering Facility: [facility] Address: [address] [place] [address] Performed By: #### 1 9123-9, [id number], 19183-9 #### [facility] CLIA [id number] [place] [address] [place] ALP [Catalytic activity/Vol] 46 U/L Normal 38-113 [facility] Comment on above: Order Comment: Speci men Type: BLOOD SPECIMEN Ordering Facility: [facility] Address: [address] [place] [address] Performed By: #### 1 9123-9, [id number], 13274-1 #### [facility] CLIA [id number] [address] [place] [address] [place] ALT [Catalytic activity/Vol] 13 U/L Normal 10-54 [facility] Comment on above: Order Comment: Speci men Type: BLOOD SPECIMEN Ordering Facility: [facility] Address: [address] [place] [address] Performed By: #### 1 9123-9, [id number], 33661-2 #### [facility] CLIA [id number] [address] [place] [address] [place] Anion gap [Moles/Vol] 7 mmol/L Low 9-18 [facility] Comment on above: Order Comment: Speci men Type: BLOOD SPECIMEN Ordering Facility: [facility] Address: [address] [place] [address] Performed By: #### 1 9123-9, [id number], 40911-7 #### [facility] CLIA [id number] [place] [address] [place] AST [Catalytic activity/Vol] 16 U/L Normal 14-40 [facility] Comment on above: Order Comment: Speci men Type: BLOOD SPECIMEN Ordering Facility: [facility] Address: [address] Performed By: #### 1 23-9, [id number], #### [facility] CLIA [id number] [address] [place] [address] [place] Bilirubin [Mass/Vol] 0.4 mg/dL Normal 0.2-1.3 [facility] Comment on above: Order Comment: Speci men Type: BLOOD SPECIMEN Ordering Facility: [facility] Address: [address] [address] Performed By: #### 1 23-9, [id number], #### [facility] CLIA [id number] [address] [place] [address] [place] Calcium [Mass/Vol] 8.4 mg/dL Low 8.5-10.2 [facility] Comment on above: Order Comment: Speci men Type: BLOOD SPECIMEN Ordering Facility: [facility] Address: [address] [address] Performed By: #### 1 23-9, [id number], #### [facility] CLIA [id number] [address] [place] [address] [place] Chloride [Moles/Vol] 108 mmol/L High 97-105 [facility] Comment on above: Order Comment: Speci men Type: BLOOD SPECIMEN Ordering Facility: [facility] Address: [address] Performed By: #### 1 23-9, [id number], #### [facility] CLIA [id number] [address] [place] [address] [place] CO2 [Moles/Vol] 26 mmol/L Normal 22-30 [facility] Comment on above: Order Comment: Speci men Type: BLOOD SPECIMEN Ordering Facility: [facility] Address: [address] Performed By: #### 1 9123-9, [id number], #### [facility] CLIA [id number] [address] [place] [address] [place] Creatinine [Mass/Vol] 1.14 mg/dL Normal 0.73-1.22 [facility] Comment on above: Order Comment: Cristela ness Type: BLOOD SPECIMEN Ordering Facility: [facility] Address: [address] [place] [address] Performed By: #### 1 9123-9, [id number], 19429-3 #### [facility] CLIA [id number] [place] [address] [place] ESTIMATED GLOMERULAR FILTRATION RATE 87 mL/min/1.73m??? Normal >=60 [facility] Comment on above: Order Comment: Cristela ness Type: BLOOD SPECIMEN Ordering Facility: [facility] Address: [address] [place] [address] Result Comment: Cathy mated Glomerular Filtration Rate [...] actual GFR. Performed By: #### 1 9123-9, [id number], 99602-2 #### [facility] CLIA [id number] [address] [place] [address] [place] Glucose [Mass/Vol] 115 mg/dL High 74-99 [facility] Comment on above: Order Comment: Cristela ness Type: BLOOD SPECIMEN Ordering Facility: [facility] Address: [address] [place] [address] Result Comment: The [place] [employer] (ADA) provides guidance for cutoff [...] Standards of Medical Care in Diabetes 2016, [place] [employer]. Diabetes Care. 2016.39(Suppl 1). Performed By: #### 1 9123-9, [id number], #### [facility] CLIA [id number] [address] [place] [address] [place] Potassium [Moles/Vol] 4.1 mmol/L Normal 3.7-5.1 [facility] Comment on above: Order Comment: Speci men Type: BLOOD SPECIMEN Ordering Facility: [facility] Address: [address] [address] Performed By: #### 1 9123-9, [id number], #### [facility] CLIA [id number] [address] [place] [address] [place] Protein [Mass/Vol] 5.5 g/dL Low 6.3-8.0 [facility] Comment on above: Order Comment: Speci men Type: BLOOD SPECIMEN Ordering Facility: [facility] Address: [address] [place] [address] Performed By: #### 1 23-9, [id number], #### [facility] CLIA [id number] [address] [place] [address] [place] Sodium [Moles/Vol] 141 mmol/L Normal 136-144 [facility] Comment on above: Order Comment: Speci men Type: BLOOD SPECIMEN Ordering Facility: [facility] Address: [address] [place] [address] Performed By: #### 1 23-9, [id number], #### [facility] CLIA [id number] [address] [place] [address] [place] Urea nitrogen [Mass/Vol] 12 mg/dL Normal 9-24 [facility] Comment on above: Order Comment: Speci men Type: BLOOD SPECIMEN Ordering Facility: [facility] Address: [address] [place] [address] Performed By: #### 1 9123-9, [id number], 02431-0 #### [facility] IA [id number] [address] [place] [address] [place] [facility] ECG COMPLETEon 01-29-2023 ECG COMPLETE Ventricular Rate : 7 8 BPM Atrial Rate : 78 BPM P-R Interval : 160 ms QRS Duration : 122 ms Q-T Interval : 374 ms QTC Calculation(Bazett) : 426 ms Calculated P Marquez : 64 degrees Calculated R Marquez : 82 degrees Calculated T Marquez : 49 degrees Sinus rhythm IVCD, consider atypical RBBB ST elevation suggests acute pericarditis Abnormal ECG no stemi Confirmed by ERIK DAVIS MD ([id number]), editorial writer SUZI BRUNO ([id number]) on 01/30/2023 10:18:17 AM NAME : GABRIELA VIDAL PID : [id number] : 1990 Gender : Male Race : ORD : [id number] Procedure Date : Jan 29 2023 12:34:12 Edit Date : Jan 30 2023 10:18:21 Diagnosis: Sinus rhythm IVCD, consider atypical RBBB ST elevation suggests acute pericarditis Abnormal ECG no stemi Confirmed by ERIK DAVIS MD ([id number]), editorial writer SUZI BRUNO ([id number]) on 01/30/2023 10:18:17 AM Test Reason : Chest Pain Location : 18 : ED [id number] Overread By : ERIK DAVIS MD Edited By : SZUI BRUNO Referred By : , Acquired by : , [facility] ED NOTEon 01-29-2023 ED NOTE HNO ID: [id number] Author: Juliana Aguilera, ANDRES Service: Nursing Author [...] Pt ambulatory with steady gait on departure. [facility] ED NOTE HNO ID: [id number] Author: Juliana Aguilera RN Service: Nursing Author [...] up, bed in locked and low position [facility] ED NOTE HNO ID: [id number] Author: Anabel Hernandez RN Service: ? Author Type: Registered Nurse Type: ED Notes Filed: 01/29/2023 12:23 PM Note Text: Bed: ED-13 Expected date: Expected time: Means of arrival: Comments: EMS [facility] ED PROV NOTEon 01-29-2023 ED PROV NOTE HNO ID: [id number] Author: Erik Davis MD Service: Emergency Medicine [...] nursing note reviewed. Exam conducted with a net wpf developer present. Constitutional: General: He is not in [...] intact. Motor: Motor function is intact. Coordination: Hxpkkk-Jfff-Kzcacb Test normal. Gait: Gait is intact. Psychiatric: [...] Final Result IMPRESSION: No acute radiographic abnormality. Blow Off Worker: PSCB Transcribe Date/Time: Jan 29 2023 [...] per minute AXIS: Normal axis INTERVALS: Normal [place] interval QRS COMPLEX: Normal ST SE (more content not included)... Normal [facility] HIGH SENSITIVITY TROPONIN T (INITIAL)on 01-29-2023 HIGH SENSITIVITY SHEBA 7 ng/L Normal <12 [facility] Comment on above: Order Comment: Speci men Type: BLOOD SPECIMENOrdering Facility: [facility] Address: [address] [place] [phone] Result Comment: When assessing risk for acute [...] day MACE. Performed By: #### 1 9123-9, [id number], 56097-9 ####[facility] [id number] [place] [id number] [place] HIGH SENSITIVITY TROPONIN T (SECOND)on 01-29-2023 HIGH SENSITIVITY SHEBA <6 Normal <12 [facility] Comment on above: Order Comment: Cristela ness Type: BLOOD SPECIMEN [facility] Address: [place] [address] Result Comment: When assessing risk for acute [...] 30 day MACE. Performed By: #### L [id number] #### [facility] CLIA [id number] [place] [address] [place] Magnesium SerPl-mCncon 01-29 Magnesium [Mass/Vol] 1.9 mg/dL Normal 1.7-2.3 [facility] Comment on above: Order Comment: Cristela ness Type: BLOOD SPECIMENOrdering Facility: [facility] Address: [address] [place] [address] Performed By: #### 1 9123-9, [id number], 89292-9 ####[facility]ORY[facility]IA [id number] [place] [address] [place] No Panel Informationon 01-29 IMPRESSION: Mild acromioclavicular degenerative changes. Blow Off Worker: YAIMA Transcribe Date/Time: Jan 29 2023 2:37P Dictated by : BROOK NELSON MD This examination was interpreted and the report reviewed and electronically signed by: BROOK NELSON MD on Guillermo 3 2023 2:38PM EST DIVISION OF RADIOLOGY Radiology Study observation (narrative) [facility] No Panel InformationOrdered By: Ccf Provider on 01-29-2023 [facility] XR CHEST 2V FRONTAL/LATon XR [...] tissues: Unremarkable. IMPRESSION: No acute radiographic abnormality. Blow Off Worker: PSCB Transcribe Date/Time: Jan 29 2023 1:19P Dictated by : DEVEN CHAPMAN MD This examination was interpreted and the report reviewed and electronically signed by: DEVEN CHAPMAN MD on Jan 29 2023 1:20PM EST [id number] [facility] XR SHLDR >/=3V AP/ALESSANDRO AP/OTH R [...] >/=3V AP/ALESSANDRO AP/OTHR LT Laterality: RIGHT (accession [id number]), LEFT (accession [id number]) Number of different views (projections): 3 M: XB_1 COMPARISON: RESULT: Mild acromioclavicular degenerative changes bilaterally. Maintained glenohumeral joints bilaterally. Imaged lungs appear to be clear. No acute fracture or dislocation. There are no bony erosions. IMPRESSION: Mild acromioclavicular degenerative changes. Blow Off Worker: [facility] Transcribe Date/Time: Jan 29 2023 2:37P Dictated by : BROOK NELSON MD This examination was interpreted and the report reviewed and electronically signed by: BROOK NELSON MD on Jan 29 2023 2:38PM EST [id number] Normal [facility] XR SHLDR >/=3V AP/ALESSANDRO AP/OTH [...] >/=3V AP/ALESSANDRO AP/OTHR LT Laterality: RIGHT (accession [id number]), LEFT (accession [id number]) Number of different views (projections): 3 M: XB_1 COMPARISON: RESULT: Mild acromioclavicular degenerative changes bilaterally. Maintained glenohumeral joints bilaterally. Imaged lungs appear to be clear. No acute fracture or dislocation. There are no bony erosions. IMPRESSION: Mild acromioclavicular degenerative changes. Blow Off Worker: [facility] Transcribe Date/Time: Jan 29 2023 2:37P Dictated by : BROOK NELSON MD This examination was interpreted and the report reviewed and electronically signed by: BROOK NELSON MD on Jan 29 2023 2:38PM EST [id number] Normal [facility] XR Shoulder - left 3 [...] >/=3V AP/ALESSANDRO AP/OTHR LT Laterality: RIGHT (accession [id number]), LEFT (accession [id number]) Number of different views (projections): 3 M: XB_1 COMPARISON: RESULT: Mild acromioclavicular degenerative changes bilaterally. Maintained glenohumeral joints bilaterally. Imaged lungs appear to be clear. No acute fracture or dislocation. There are no bony erosions. DIVISION OF RADIOLOGY Provider, [facility] - 01/29/2023 * * *Final [...] injury Pain . TECHNIQUE: XR SHLDR >/=3V AP/ALESSNADRO AP/OTHR RT, XR SHLDR >/=3V AP/ALESSANDRO AP/OTHR LT Laterality: RIGHT (accession [id number]), LEFT (accession [id number]) Number of different views (projections): 3 M: XB_1 COMPARISON: RESULT: Mild acromioclavicular degenerative changes bilaterally. Maintained glenohumeral joints bilaterally. Imaged lungs appear to be clear. No acute fracture or dislocation. There are no bony erosions. IMPRESSION IMPRESSION: Mild acromioclavicular degenerative changes. Blow Off Worker: PSCB Transcribe Date/Time: Jan 29 2023 2:37P Dictated by : BROOK NELSON MD This examination was interpreted and the report reviewed and electronically signed by: BROOK NELSON MD on Jan 29 2023 2:38PM EST [facility] XR Shoulder - right 3 [...] >/=3V AP/ALESSANDRO AP/OTHR LT Laterality: RIGHT (accession [id number]), LEFT (accession [id number]) Number of different views (projections): 3 M: XB_1 COMPARISON: RESULT: Mild acromioclavicular degenerative changes bilaterally. Maintained glenohumeral joints bilaterally. Imaged lungs appear to be clear. No acute fracture or dislocation. There are no bony erosions. DIVISION OF RADIOLOGY Provider, [facility] - 01/29/2023 * * *Final [...] >/=3V AP/ALESSANDRO AP/OTHR LT Laterality: RIGHT (accession [id number]), LEFT (accession [id number]) Number of different views (projections): 3 M: XB_1 COMPARISON: RESULT: Mild acromioclavicular degenerative changes bilaterally. Maintained glenohumeral joints bilaterally. Imaged lungs appear to be clear. No acute fracture or dislocation. There are no bony erosions. IMPRESSION IMPRESSION: Mild acromioclavicular degenerative changes. Blow Off Worker: PSCB Transcribe Date/Time: Jan 29 2023 2:37P Dictated by : BROOK NELSON MD This examination was interpreted and the report reviewed and electronically signed by: BROOK NELSON MD on Jan 29 2023 2:38PM EST [facility] UA DIP, URINE (POC)on 2022 BILIRUBIN UA (POCT) Negative Negative [facility] CLARITY UA (POCT) Clear [facility] COLOR UA (POCT) Yellow [facility] GLUCOSE UA (POCT) Negative Negative mg/dL [facility] HEMOGLOBIN/BLOOD UA (POCT) Negative Negative [facility] KETONE UA (POCT) Negative Negative mg/dL [facility] LEUKOCYTES UA (POCT) Negative Negative [facility] NITRITE UA (POCT) Negative Negative [facility] PH UA (POCT) 5.5 4.5 - 8.0 [facility] Protein Ql (U) Negative Negative mg/dL [facility] SPECIFIC GRAVITY UA (POCT) >=1.030 1.005 - 1.030 [facility] UROBILINOGEN UA (POCT) 0.2 E.U./dL Skyla l E.U./dL [facility] Provider Note - ED v3on [...] by speech recognition technology. Minor errors in chainstitch sewing machine operator may be present. HISTORY OF PRESENTING [...] Review Statu (more content not included)... Normal [facility] Triage - EDon 2022 Triage - ED Chart Review: ARRIVAL INFORMATION Mode of Arrival: ambulance Agency Name: [place] CHIEF COMPLAINT GABRIELA VIDAL is a Male [...] 11-Dec-2022 21:00 by Dina Wood (RN PRN) [facility] ED NOTEon 01-03-2022 ED NOTE HNO ID: [id number] Author: Darcie Gary RN Service: Nursing Author [...] Pt ambulated off ED in no distress. [facility] ED NOTE HNO ID: [id number] Author: Nuvia George RN Service: ? Author Type: Registered Nurse Type: ED Notes Filed: 01/03/2022 11:51 AM Note Text: Pt presents to the ED with CC of a known dental infection for the past 2 years that has turned into an abscess, pt went to [place] yesterday where they attempted to drain the abscess and started him on oral antibiotics, pt now reports swelling is worse and to the point of his eye swelling shut [facility] ED PROV NOTEon 01-03-2022 ED PROV NOTE HNO ID: [id number] Author: Aysha Poole MD Service: ? Author [...] swelling 2 days ago. He went to [place] emergency department was placed on amoxicillin. He [...] alert and (more content not included)... Normal [facility] XR SHOULDER 2V AP/TRUE AP RT [...] otherwise maintained. No acute fracture or dislocation. Blow Off Worker: YAIMA Transcribe Date/Time: Sep 09 2020 9:58A Dictated by : XAVI OLIVER MD This examination was interpreted and the report reviewed and electronically signed by: XAVI OLIVER MD on Sep 09 2020 10:09AM EST Normal [facility] CT CHEST WO IVCONon 08-02-19 CT CHEST WO IVCON Final Report DATE OF EXAM: Aug 02 2020 5:04PM [facility] 0541 - CT CHEST WO [...] abnormality identified in the imaged upper abdomen. Seafood Preparer (topogram) images: No additional findings. IMPRESSION: Interval resolution of right lower lobe consolidation/pneumonia . No acute findings in the chest. Blow Off Worker: YAIMA Transcribe Date/Time: Aug 02 2020 6:06P Dictated by : LACI MENDOZA MD This examination was interpreted and the report reviewed and electronically signed by: LACI MENDOZA MD on Aug 02 2020 6:17PM EST Normal [facility] XR CHEST 2V FRONTAL/LATon XR CHEST [...] to ensure resolution and exclude a neoplasm. Blow Off Worker: YAIMA Transcribe Date/Time: May 17 2020 5:34P Dictated by : JUAN AYERS MD This examination was interpreted and the report reviewed and electronically signed by: JUAN AYERS MD on May 17 2020 5:35PM EST Normal [facility] T. Vaginalis Amplificationon 02-10-2020 T. Vaginalis Amplification SEE BELOW Normal [facility] Comment on above: Result Comment: Tric h vag Amp Source Urine Corrected on 02/08 AT 1722: Previously reported as URINE T vag Amplification SEE BELOW Negative for Trichomonas vaginalis by amplification This test was developed and its performance characteristics determined by [facility]'s Gabriela Esteban [facility] Pathology [facility] [place] ( [facility]). It has not been cleared or approved by the FDA. [facility] is regulated under CLIA as qualified to perform high complexity testing. This test is used for clinical purposes. It should not be regarded as investigational or for research. Performing Laboratory: [facility] [address] [place] [address] Performed By: #### T RVAX #### [facility] [address] [place], [place] [address] GC/Chlam Urine Ampon 020 CT Amplification, Ur CT neg Normal [facility] Comment on above: Result Comment: Nega tive for Chlamydia trachomatis by amplification. Performed By: #### G CTUP #### [facility] [address] [place], [place] [address] GC Amplification, Ur GC neg Normal [facility] Comment on above: Result Comment: Nega tive for Neisseria gonorrhoeae by amplification. Performed By: #### G CTUP #### [facility] [address] [place], [place] [address] GC/Chlam Urine Ampon 020 GC/Chlam Urine Amp Source Urine Normal [facility] Comment on above: Performed By: #### G CTUP #### [facility] [address] [place], [place] [address] XR LUMBAR 3V AP/LAT/L5-S1on 02-02-2020 XR LUMBAR [...] are seen. IMPRESSION: No acute traumatic abnormality Blow Off Worker: YAIMA Transcribe Date/Time: Feb 02 2020 1:49P Dictated by : LINDA RAMÍREZ MD This examination was interpreted and the report reviewed and electronically signed by: LINDA RAMÍREZ MD on Feb 02 2020 1:54PM EST Normal [facility] Chlamydia and GC PCR Panelon 02-09-2018 [...] as suspected child abuse or molestation. Normal [facility] Comment on above: Order Comment: Speci men Source Comment:Urine voided Performed By: #### C TNGP ####[facility] [id number] [place] [address] CR Abdomen Series w/ Chest 1 Viewon 02-08-2018 CR Abdomen Series w/ Chest 1 View Patient Name: GABRIELA VIDAL Jr Diagnostic Radiology Exam Date/Time 02/08/2018 11:55:40 EDT Exam CR Abdomen Series w/ Chest 1 View Ordering Physician DO GONCALVES KIMBERLY D. Accession Number [id number] CPT4 Codes 72457 () Reason For Exam abdominal pain and [...] Transcribed Date and Time: 02/08/2018 1:03 Normal [facility] Comp Metabolic Panelon 02-08 Calcium 9.2 mg/dL Normal 8.4-10.4 [facility] Comment on above: Performed By: #### H YOLANDA CMP3 ####[address] [place] [address] Alanine aminotransferase (ALT) 19 U/L Normal 13-69 [facility] Comment on above: Performed By: #### H YOLANDA CMP3 ####[address] [place] [address] Alkaline phosphatase (ALP) 45 U/L Normal 38-126 [facility] Comment on above: Performed By: #### H YOLANDA CMP3 ####[address] [place] [address] Anion gap 9 Normal [facility] Comment on above: Performed By: #### H YOLANDA CMP3 ####[address] [place] [address] Aspartate aminotransferase (AST) 22 U/L Normal 15-46 [facility] Comment on above: Performed By: #### H YOLANDA CMP3 ####[address] [place] [address] Bilirubin (total) 0.5 mg/dL Normal 0.2-1.3 [facility] Comment on above: Performed By: #### H YOLANDA CMP3 ####[address] [place] [address] CO2 28 mmol/L Normal 22-30 [facility] Comment on above: Performed By: #### H YOLANDA CMP3 ####[address] [place] [address] Creatinine 1.19 mg/dL Normal 0.52-1.25 [facility] Comment on above: Performed By: #### H YOLANDA CMP3 ####[place] [id number] [place] [address] eGFR (black) mL/min/{1.73_m2} Normal >60 [facility] Comment on above: Performed By: #### H YOLANDA CMP3 ####[place] [id number] [place] [address] eGFR (non-black) mL/min/{1.73_m2} Normal >60 [facility] Comment on above: Result Comment: Sour ce- MDRD equation with creatinine calibration to IDMS(NKDEP) eGFR not recommended for drug dose adjustment Performed By: #### H YOLANDA CMP3 ####[address] [place] [address] Glucose mass conc 98 mg/dL Normal 70-100 [facility] Comment on above: Performed By: #### H YOLANDA CMP3 ####[address] [place] [address] Protein 6.9 g/dL Normal 6.3-8.2 [facility] Comment on above: Performed By: #### H YOLANDA CMP3 ####[place] [id number] [place] [address] Urea nitrogen 10 mg/dL Normal 7-20 [facility] Comment on above: Performed By: #### H YOLANDA CMP3 ####[address] [place] [address] Potassium molar conc 4.2 mmol/L Normal 3.5-5.1 [facility] Comment on above: Performed By: #### H YOLANDA CMP3 ####[place] [id number] [place] [address] Albumin 4.2 g/dL Normal 3.5-5.0 [facility] Comment on above: Performed By: #### H YOLANDA CMP3 ####[address] [place] [address] Chloride 106 mmol/L Normal 98-107 [facility] Comment on above: Performed By: #### H YOLANDA CMP3 ####[address] [address] Sodium 144 mmol/L Normal 137-145 [facility] Comment on above: Performed By: #### H YOLANDA CMP3 ####[address] [address] Hemogram w/ Autodiffon 02-08 Abs Baso Cnt 0.0 10*3/uL Normal 0.0-0.2 [facility] Comment on above: Performed By: #### H YOLANDA CMP3 ####[address] [address] Abs Neutrophile Cnt 4.4 10*3/uL Normal 1.8-7.0 [facility] Comment on above: Performed By: #### H YOLANDA CMP3 ####[address] [address] Basophils/100 WBC Auto (Bld) 0.5 % Normal 0.0-2.0 [facility] Comment on above: Performed By: #### H YOLANDA CMP3 ####[address] [address] Eosinophils 0.2 10*3/uL Normal 0.0-0.5 [facility] Comment on above: Performed By: #### H YOLANDA CMP3 ####[address] [address] Eosinophils/100 leukocytes 2.5 % Normal 1.0-6.0 [facility] Comment on above: Performed By: #### H YOLANDA CMP3 ####[address] [address] Erythrocyte distribution width Auto Ratio (RBC) 13.0 % Normal 11.5-14.5 [facility] Comment on above: Performed By: #### H YOLANDA CMP3 ####[address] [address] Erythrocytes (RBC) 5.31 10*6/uL Normal 4.40-5.90 [facility] Comment on above: Performed By: #### H YOLANDA CMP3 ####[address] [address] Granulocytes/100 WBC (Bld) 54.6 % Normal 40.0-80.0 [facility] Comment on above: Performed By: #### H YOLANDA CMP3 ####[place] [id number] [facility] [address] Hematocrit (HCT) 48.8 % Normal 40.0-52.0 [facility] Comment on above: Performed By: #### H EMDHafsa CMP3 ####[place] [id number] [place] [address] Hemoglobin mass conc (Bld) 16.7 g/dL Normal 13.0-18.0 [facility] Comment on above: Performed By: #### H YOLANDA CMP3 ####[place] [id number] [facility] [address] Lymphocytes 2.6 10*3/uL Normal 1.0-4.3 [facility] Comment on above: Performed By: #### H EMDHafsa CMP3 ####[address] [place] [address] Lymphocytes/100 leukocytes 32.5 % Normal 20.0-40.0 [facility] Comment on above: Performed By: #### H YOLANDA CMP3 ####[address] [place] [address] MCH 31.4 pg Normal 26.0-34.0 [facility] Comment on above: Performed By: #### H EMDHafsa CMP3 ####[address] [place] [address] MCHC mass conc (RBC) 34.2 % Normal 32.0-36.0 [facility] Comment on above: Performed By: #### H YOLANDA CMP3 ####[address] [place] [address] MCV 91.8 fL Normal 80.0-98.0 [facility] Comment on above: Performed By: #### H EMDHafsa CMP3 ####[place] [id number] [place] [address] Monocytes 0.8 10*3/uL Normal 0.0-0.8 [facility] Comment on above: Performed By: #### H YOLANDA CMP3 ####[place] [id number] [place] [address] Monocytes/100 leukocytes 9.9 % Normal 2.0-10.0 [facility] Comment on above: Performed By: #### H YOLANDA CMP3 ####[place] [id number] [place] [address] Platelet mean volume (PMV) 10.2 fL Normal 7.4-10.4 [facility] Comment on above: Performed By: #### H YOLANDA CMP3 ####[place] [id number] [place] [address] Platelets 195 10*3/uL Normal 140-440 [facility] Comment on above: Performed By: #### H YOLANDA CMP3 ####[place] [id number] [place] [address] WBC (Leukocytes) 8.0 10*3/uL Normal 3.6-10.7 [facility] Comment on above: Performed By: #### H YOLANDA CMP3 ####[address] [place] [address] Urinalysis,Macroon 8 Appearance Clear Normal Clear [facility] Comment on above: Performed By: #### U AMAC, UAMIC ####[address] [place] [address] Bilirubin,Ur 1 + Normal Negative [facility] Comment on above: Performed By: #### U AMAC, UAMIC ####[address] [place] [address] Color Yellow Normal Lt. Yellow [facility] Comment on above: Performed By: #### U AMAC, UAMIC ####[place] [id number] [place] [address] Ketone,Urine Negative Normal Negative [facility] Comment on above: Performed By: #### U AMAC, UAMIC ####[place] [id number] [place] [address] Leukocytes Negative Normal Negative [facility] Comment on above: Performed By: #### U AMAC, UAMIC ####[address] [place] [address] Nitrites Negative Normal Negative [facility] Comment on above: Performed By: #### U AMAC, UAMIC ####[address] [place] [address] Occult Blood,Ur Negative Normal Negative [facility] Comment on above: Performed By: #### U AMAC, UAMIC ####[place] [id number] [place] [address] Specific [place],Urine 1.020 Normal 1.005-1.030 [facility] Comment on above: Performed By: #### U AMAC, UAMIC ####[address] [place] [address] Total Protein,Urine Negative Normal Negative [facility] Comment on above: Performed By: #### U AMAC, UAMIC ####[address] [place] [address] Urine, glucose presence NEG (Normal) Normal Negative [facility] Comment on above: Performed By: #### U AMAC, UAMIC ####[address] [place] [address] Urine, pH 6.5 Normal 5.0-8.0 [facility] Comment on above: Performed By: #### U AMAC, UAMIC ####[address] [place] [address] Urobilinogen Normal (0.2) Normal 0-1 [facility] Comment on above: Performed By: #### U AMAC, UAMIC ####[address] [place] [address] Urinalysis,Microscopicon Amorphous Urates Moderate (6-50) Normal Negative [facility] Comment on above: Performed By: #### U AMAC, UAMIC ####[address] [place] [address] Bacteria Few (1-5) Normal Negative [facility] Comment on above: Performed By: #### U AMAC, UAMIC ####[address] [place] [address] Ca Oxylate Crystals Few (1-5) Normal Negative [facility] Comment on above: Performed By: #### U AMAC, UAMIC ####[address] [place] [address] Epithelial Cells Negative Normal 3-5 [facility] Comment on above: Performed By: #### U AMAC, UAMIC ####[facility] [id number] [place] [address] Urine, erythrocytes in sediment by area Negative Normal 0-2 [facility] Comment on above: Performed By: #### U AMAC, UAMIC ####[facility] [id number] [place] [address] Urine, leukocytes in sedmiment 0 - 2 Normal 0-5 [facility] [employer] Comment on above: Performed By: #### U AMAC, UAMIC ####[facility] [id number] [place] [address] Volume,Urine 12 ml Normal [facility] Comment on above: Performed By: #### U AMAC, UAMIC ####[facility] [id number] [place] [address] Vital Signs Date Time Vital Sign Value Performing Clinician Facility 01-21-2025 21:53-0400 Body temperature 100 [degF] Shania Queden [employer]D [employer]ER[employer]C Work Phone: [facility] 01-21-2025 21:53-0400 Diastolic blood pressure 83 mm[Hg] Shania Queden [employer]C Work Phone: [facility] 01-21-2025 21:53-0400 Heart rate 118 /min Shania Queden [employer] Work Phone: [facility] 01-21-2025 21:53-0400 Respiratory rate 18 /min Shania Queden [employer]C Work Phone: [facility] 01-21-2025 21:53-0400 SaO2% (BldA) [Mass fraction] 100 % Shania Queden [employer] Work Phone: [facility] 01-21-2025 21:53-0400 Systolic blood pressure 130 mm[Hg] Shania Queden [employer]C Work Phone: [facility] 01-21-2025 16:05-0400 Body height 175.26 cm Shania Queden ALMOND ROASTER-C Work Phone: [facility] 01-21-2025 16:05-0400 Body mass index (BMI) [Ratio] 27 kg/m2 Shania Queden ALMOND ROASTER-C Work Phone: [facility] 01-21-2025 16:05-0400 Body weight 83 kg Shania Queden ALMOND ROASTER-C Work Phone: [facility] 01-07-2025 09:57-0400 Body temperature 97.3 [degF] Shania Queden ALMOND ROASTER-C Work Phone: [facility] 01-07-2025 09:57-0400 Diastolic blood pressure 99 mm[Hg] Shania Queden ALMOND ROASTER-C Work Phone: [facility] 01-07-2025 09:57-0400 Heart rate 90 /min Shania Queden ALMOND ROASTER-C Work Phone: [facility] 01-07-2025 09:57-0400 Respiratory rate 16 /min Shania Queden ALMOND ROASTER-C Work Phone: [facility] 01-07-2025 09:57-0400 SaO2% (BldA) [Mass fraction] 99 % Shania Queden ALMOND ROASTER-C Work Phone: [facility] 01-07-2025 09:57-0400 Systolic blood pressure 101 mm[Hg] Shania Queden ALMOND ROASTER-C Work Phone: [facility] 01-07-2025 08:42-0400 Body height 175.26 cm Shania Queden ALMOND ROASTER-C Work Phone: [facility] 01-07-2025 08:42-0400 Body mass index (BMI) [Ratio] 27.1 kg/m2 Shania Queden ALMOND ROASTER-C Work Phone: [facility] 01-07-2025 08:42-0400 Body weight 83.41 kg Shania Queden ALMOND ROASTER-C Work Phone: [facility] 01-15-2024 14:37-0400 Body height 177.8 cm Shania Queden MANAGER PARKING.OBSTETRICAL TECH Work Phone: [facility] 01-15-2024 14:37-0400 Body mass index (BMI) [Ratio] 24.54 kg/m2 Shania Queden MANAGER PARKING.OBSTETRICAL TECH Work Phone: [facility] 01-15-2024 14:37-0400 Body temperature 97.9 [degF] Shania Queden MANAGER PARKING.OBSTETRICAL TECH Work Phone: [facility] 01-15-2024 14:37-0400 Body weight 77.56 kg Shania Queden MANAGER PARKING.OBSTETRICAL TECH Work Phone: [facility] 01-15-2024 14:37-0400 Diastolic blood pressure 62 mm[Hg] Shania Queden MANAGER PARKING.OBSTETRICAL TECH Work Phone: [facility] 01-15-2024 14:37-0400 Heart rate 98 /min Shania Queden MANAGER PARKING.OBSTETRICAL TECH Work Phone: [facility] 01-15-2024 14:37-0400 Respiratory rate 18 /min Shania Queden MANAGER PARKING.OBSTETRICAL TECH Work Phone: [facility] 01-15-2024 14:37-0400 SaO2% (BldA) [Mass fraction] 99 % Shania Queden MANAGER PARKING.OBSTETRICAL TECH Work Phone: [facility] 01-15-2024 14:37-0400 Systolic blood pressure 122 mm[Hg] Shania Queden MANAGER PARKING.OBSTETRICAL TECH Work Phone: [facility] 09-29-2023 06:49-0500 Body temperature 97.8 [degF] [facility] 09-29-2023 06:49-0500 Diastolic blood pressure 72 mm[Hg] [facility] 09-29-2023 06:49-0500 Heart rate 71 /min [facility] 09-29-2023 06:49-0500 Respiratory rate 16 /min [facility] 09-29-2023 06:49-0500 SaO2% (BldA) [Mass fraction] 98 % [facility] 09-29-2023 06:49-0500 Systolic blood pressure 122 mm[Hg] [facility] 09-28-2023 17:12-0500 Body height 177.8 cm [facility] 09-28-2023 17:12-0500 Body mass index (BMI) [Ratio] 26.5 kg/m2 [facility] 09-28-2023 17:12-0500 Body weight 83.91 kg [facility] 04-09-2023 10:29-0400 Body height 177.8 cm Gilda Zavala APRN.OBSTETRICAL TECH Work Phone: [facility] 04-09-2023 10:29-0400 Body temperature 97.81 [degF] Gilda Zavala MANAGER PARKING.OBSTETRICAL TECH Work Phone: [facility] 04-09-2023 10:29-0400 Body weight 82.1 kg Gilda Zavala APRN.OBSTETRICAL TECH Work Phone: [facility] 04-09-2023 10:29-0400 Diastolic blood pressure 76 mm[Hg] Gilda Zavala APRN.OBSTETRICAL TECH Work Phone: [facility] 04-09-2023 10:29-0400 Heart rate 92 /min Gilda Zavala APRN.OBSTETRICAL TECH Work Phone: [facility] 04-09-2023 10:29-0400 SaO2% (BldA) [Mass fraction] 93 % Gilda Zavala APRN.OBSTETRICAL TECH Work Phone: [facility] 04-09-2023 10:29-0400 Systolic blood pressure 120 mm[Hg] Gilda Zavala APRN.OBSTETRICAL TECH Work Phone: [facility] 12-29-2022 16:55-0400 Body height 177.8 cm Shania Vieira MANAGER PARKING.OBSTETRICAL TECH Work Phone: [facility] 12-29-2022 16:55-0400 Body temperature 97.9 [degF] Shania Vieira MANAGER PARKING.OBSTETRICAL TECH Work Phone: [facility] 12-29-2022 16:55-0400 Body weight 79.83 kg Shania Vieira MANAGER PARKING.OBSTETRICAL TECH Work Phone: [facility] 12-29-2022 16:55-0400 Diastolic blood pressure 74 mm[Hg] Shania Butlerden MANAGER PARKING.OBSTETRICAL TECH Work Phone: [facility] 12-29-2022 16:55-0400 Heart rate 91 /min Shania Queden MANAGER PARKING.OBSTETRICAL TECH Work Phone: [facility] 12-29-2022 16:55-0400 SaO2% (BldA) [Mass fraction] 97 % Shania Queden MANAGER PARKING.OBSTETRICAL TECH Work Phone: [facility] 12-29-2022 16:55-0400 Systolic blood pressure 120 mm[Hg] Shania Butlerden MANAGER PARKING.OBSTETRICAL TECH Work Phone: [facility] 12-12-2022 00:10-0400 Diastolic blood pressure 77 mm[Hg] No Pcp Required [facility] Other Phone (unformatted): [phone] 12-12-2022 00:10-0400 Heart rate 96 /min No Pcp Required [facility] Other Phone (unformatted): [phone] 12-12-2022 00:10-0400 Respiratory rate 18 /min No Pcp Required [facility] Other Phone (unformatted): [phone] 12-12-2022 00:10-0400 SaO2% (BldA) [Mass fraction] 100 % No Pcp Required [facility] Other Phone (unformatted): [phone] 12-12-2022 00:10-0400 Systolic blood pressure 113 mm[Hg] No Pcp Required [facility] Other Phone (unformatted): [phone] 2022 22:57-0400 Body height 180.3 cm No Pcp Required [facility] Other Phone (unformatted): [phone] 2022 22:57-0400 Body temperature 96.8 [degF] No Pcp Required [facility] Other Phone (unformatted): [phone] 2022 22:57-0400 Body weight 84 kg No Pcp Required [facility] Other Phone (unformatted): [phone] 05-18-2019 15:46-0400 BMI (Body Mass Index) 26.54 [facility] [place] [place] 05-18-2019 15:46-0400 Body Temperature 98.6 [degF] [place] 05-18-2019 15:46-0400 Body weight 83.92 kg [place], [place] 05-18-2019 15:46-0400 BP Diastolic 79 mm[Hg] [place] 05-18-2019 15:46-0400 BP Systolic 118 mm[Hg] [place] 05-18-2019 15:46-0400 Pulse (Heart Rate) 94 /min [place], [place] 05-18-2019 15:46-0400 Pulse Oximetry 99 % [place] 05-18-2019 15:46-0400 Respiratory Rate 20 /min [place] Encounters Encounter Date Encounter Type Care Provider Facility Start: 01-21-2025 Evaluation and manag ement of inpatient Dr. Zechariah Bruno MD -Medical Surgical 3 Work Phone: Start: 01-12-2025 End: 01-12-2025 ambulatory Shania Vieira APRN.CNP Work Phone: [facility] Start: 01-12-2025 End: 01-12-2025 Follow-up encounter Shania Vieira APRN.OBSTETRICAL TECH Work Phone: [facility] Comment on above: ED Follow-up ([facility] ED 01/07/2025) Start: 01-07-2025 End: 01-07-2025 Emergency department patient visit Shania Vieira ALMOND ROASTER-C Work Phone: -Emergency Department Work Phone: Start: 04-21-2024 End: 04-23-2024 Patient Outreach Estephania Lemos [facility] Comment on above: Transition Of Care ( Pt was admitted to [facility] on 04/18/2024 for ISABELLA, COVID-19. Pt was d/c on 04/19/2024) Start: 04-18-2024 ambulatory Shaniaklaus Vieira ALMOND ROASTER Facil ity:[facility] Start: 04-18-2024 End: 04-19-2024 Evaluation and management of inpatient Shania Vieira ALMOND ROASTER Facility:[facility] Start: 04-17-2024 End: 04-17-2024 Emergency department patient visit Shania Vieira ALMOND ROASTER Facility:[facility] Start: 01-28-2024 Telephone encounter Shania Vieira MANAGER PARKING.OBSTETRICAL TECH Work Phone: [facility] Comment on above: Consult Start: 01-15-2024 End: 01-15-2024 Patient encounter procedure Shania Vieira MANAGER PARKING.OBSTETRICAL TECH Work Phone: [facility] Comment on above: Schizoaffective diso rder, unspecified type (HCC) (Primary Dx); Adult ADHD; Auditory hallucinations; Acute psychosis (HCC); Marijuana use; Financial difficulties; Acute pain of left shoulder; Living in temporary quarters Start: 12-21-2023 Telephone encounter Shania A Isha MANAGER PARKING.OBSTETRICAL TECH Work Phone: [facility] Comment on above: Appointment Start: 12-17-2023 ambulatory Estephania Lemos LPN [facility] Start: 10-02-2023 ambulatory Humera Gillis MA [facility] Comment on above: ed outreach (Ed outr each/09/28/2023/[facility] ) Start: 09-28-2023 End: 09-29-2023 Emergency department patient visit [facility]-Emergency Department Work Phone: Start: 07-03-2023 ambulatory Shania Butlerd en MANAGER PARKING.OBSTETRICAL TECH Work Phone: [facility] Comment on above: ED Outreach ([facility] ED 07/01/23) Start: 05-17-2023 ambulatory Shanae Bustamante MA [facility] Start: 04-11-2023 ambulatory Humera Gillis MA [facility] Comment on above: ED outreach (ED outr each /[facility] /04/07/2023 ) Start: 04-09-2023 End: 04-09-2023 Patient encounter procedure Gilda Zavala MANAGER PARKING.OBSTETRICAL TECH Work Phone: [facility] Comment on above: Cellulitis of right lower leg (Primary Dx); Itching Start: 01-29-2023 End: 01-29-2023 Emergency department patient visit SHANIAKLAUS BUTLERJOSHUA Facility:[facility] Start: 01-29-2023 End: 01-29-2023 ambulatory SHANIA VIEIRA Facility:[facility] Start: 01-29-2023 End: 01-29-2023 Subsequent hospital visit by physician [facility] Comment on above: Pain [R52] Start: 01-18-2023 Orders Only Humera Hernandez bobby MANAGER PARKING.OBSTETRICAL TECH Work Phone: [facility] [place] Comment on above: Pain (Primary Dx) Start: 01-01-2023 Telephone encounter Shania Vieira MANAGER PARKING.OBSTETRICAL TECH Work Phone: [facility] Comment on above: Results Start: 12-29-2022 End: 12-29-2022 Patient encounter procedure Shania Macie Isha MANAGER PARKING.OBSTETRICAL TECH Work Phone: [facility] Comment on above: Dysuria (Primary Dx) ; Exposure to STD Start: 2022 End: 12-12-2022 Emergency department patient visit Damion Perdue [facility] Other Phone (unformatted): [phone] Start: 08-24-2022 ambulatory Shania Quijano Qued en MANAGER PARKING.OBSTETRICAL TECH Work Phone: [facility] Start: 08-24-2022 Follow-up encounter Shania Vieira MANAGER PARKING.OBSTETRICAL TECH Work Phone: [facility] Comment on above: ED Follow Up ([facility] discharge 08/21/2022 ED outreach ) Start: 01-06-2022 ambulatory Shania Quijano Qued en MANAGER PARKING.OBSTETRICAL TECH Work Phone: [facility] Start: 05-18-2019 End: 05-18-2019 Emergency department patient visit [facility] Comment on above: Encounter for wound re-check (Primary Dx) Start: 02-08-2018 Emergency department patient visit Torrie Goncalves [facility] Procedures Date Procedure Procedure Detail Performing Clinician Start: 01-21-2025 Computed tomography of abdomen and pelvis with intravenous contrast Shania Vieira ALMOND ROASTER-C Work Phone: Start: 01-21-2025 Estimated creatinine clearance Shania Vieira ALMOND ROASTER-C Work Phone: Start: 01-21-2025 Urnls dip stick/tabl et reagent auto microscopy Shania Vieira ALMOND ROASTER-C Work Phone: Start: 09-28-2023 Coronavirus COVID-19 PCR Start: 01-29-2023 Radex shoulder compl ete minimum 2 views Humera Martinez Meredith MANAGER PARKING.OBSTETRICAL TECH Work Phone: Start: 12-29-2022 Urnls dip stick/tabl et rgnt auto w/o microscopy Shania Vieira MANAGER PARKING.OBSTETRICAL TECH Work Phone: Start: 08-24-2020 Adult depression scr eening assessment Shania Vieira MANAGER PARKING.OBSTETRICAL TECH Work Phone: Plan of Treatment Date Care Activity Detail Author Start: 07-01-2033 Urine microalbumin profile DTaP,Tdap,Td Vaccine (8 - Td or Tdap) [facility] Start: 03-30-2025 Influenza vaccination Influenz a Vaccine (Season Ended) [facility] Start: 01-21-2025 Hospital admission, emergency, from emergency room, medical nature [facility] Start: 01-21-2025 Verification routine [facility] Start: 01-21-2025 Admission procedure [facility] Start: 03-30-2024 Covid-19 Vaccine ( season) Covid-19 Vaccine ( season) [facility] Start: 03-30-2024 Covid-19 Vaccine ( season) Covid-19 Vaccine ( season) [facility] Start: 03-30-2024 Influenza vaccination [facility] Start: 02-20-2024 End: 02-20-2024 Patient encounter procedure 02/20/2024 2:00 PM EDT Office Visit Orthopaedics [address] [place] [address] Gisella De Santiago DO [address] [place] [address] shoulder pain, bycicle incident 01/02/24 [facility] Comment on above: shoulder pain, bycic le incident 01/02/24 [facility] Start: 01-15-2024 End: 01-15-2024 Patient encounter procedure 01/15/2024 2:[address] PM [address]T Office Visit [facility] [address] [place] [address] Shania Vieira, MANAGER PARKING.OBSTETRICAL TECH [address] [place] [place] [phone] [facility] Start: 12-30-2023 COVID-19 VACCINE (#1) COVID-19 VACCI NE (#1) [facility] Comment on above: Postponed from 06/13 (Declined at this time) Start: 12-12-2023 Lipid panel Lipid Screening [facility] Start: 09-29-2023 [facility] Start: 09-28-2023 Suicide precautions [facility] Start: 07-30-2023 Behavioral Health Screening Behavioral Health Screening [facility] Start: 07-30-2023 [facility] Start: 07-29-2023 [facility] Comment on above: Postponed from 07/30 (Declined at this time) Start: 03-30-2023 Covid-19 Vaccine ( season) Covid-19 Vaccine ( season) [facility] Start: 03-30-2023 Influenza vaccination [facility] Start: 12-29-2022 End: 02-28-2023 SYPHILIS TOTAL W/REFLEX SYPHILIS TOTAL W/REFLEX Lab Routine Exposure to STD Expected: 12/29/2022, Expires: 02/28/2023 [facility] Work Phone: Comment on above: Expected: 12/29/2022 , Expires: 02/28/2023 Start: 07-30-2022 DEPRESSION ASSESSMENT DEPRESSION ASS ESSMENT [facility] Start: 03-30-2022 Influenza vaccination [facility] Start: 08-24-2021 Adult depression screening assessment DEPRESSION SCREENING [facility] Start: 11-11-2020 Urine microalbumin profile [facility] Start: 03-30-2019 Influenza vaccination Flu vaccine (# 1) [place], [place] Start: 12-12-2007 Pneumococcal vaccination Pneumococcal Vaccine (1 of 2 - PCV) [facility] Start: 12-12-2007 Urine microalbumin profile DTAP,TDAP,TD (1 - Tdap) [facility] Start: 2006 Anxiety Screening Anxiety Screening [facility] Start: 2006 Depression Screening Depression Scre ening [facility] Start: 2006 HEPATITIS C SCREENING HEPATITIS C [facility] Start: 2006 Hepatitis C screening Hepatitis C [facility] Start: 2006 HIV SCREENING HIV SCREENING [facility] Start: 2006 HIV screening HIV Screening [facility] Start: 1994 PNEUMOCOCCAL (1 - PCV) PNEUMOCOCCAL (1 - PCV) [facility] Start: 1994 Pneumococcal vaccination [facility] Start: 1993 COVID-19 VACCINE (#1) COVID-19 VACCI NE (#1) [facility] Start: 06-13-1989 COVID-19 VACCINE (#1) COVID-19 VACCI NE (#1) [facility] Start: 1988 HEPATITIS B (1 of 3 - 3-dose series) HEPATITIS B (1 of 3 - 3-dose series) [facility] Chlamydia trachomatis+Neisseria gonorrhoeae DNA [Presence] in Urine by CARLOS with probe detection GC/CHLAMYDIA AMPLIF, URINE Microbiology Routine Exposure to STD 12/29/2022 5:06 PM EDT [facility] Work Phone: Patient Education ED Cellulitis [facility] Work Phone: Patient referral [facility] Work Phone: T VAGINALIS AMPLIFICATION T VAGINALIS AMPLIFICATION Lab Routine Exposure to STD 12/29/2022 5:02 PM EDT [facility] Work Phone: UA DIP, URINE (POC) UA DIP, URIN E (POC) Lab Routine Dysuria Ordered: 12/29/2022 [facility] Work Phone: Comment on above: Ordered: 12/29/2022 End: 02-17-2024 XR SHOULDER GENERAL 3V OR MORE AP/TRUE AP/OTHER LEFT XR SHOULDER GENERAL 3V OR MORE AP/TRUE AP/OTHER LEFT Radiology Routine Pain 1 Occurrences starting 01/18/2023 until 02/17/2024 [facility] Work Phone: Comment on above: 1 Occurrences starti ng 01/18/2023 until 02/17/2024 End: 02-17-2024 XR SHOULDER GENERAL 3V OR MORE AP/TRUE AP/OTHER RIGHT XR SHOULDER GENERAL 3V OR MORE AP/TRUE AP/OTHER RIGHT Radiology Routine Pain 1 Occurrences starting 01/18/2023 until 02/17/2024 [facility] Work Phone: Comment on above: 1 Occurrences starti ng 01/18/2023 until [facility] Immunization Date Immunization Notes Care Provider Igor garcia 07-01-2023 tetanus toxoid, redu mag diphtheria toxoid, and acellular pertussis vaccine, adsorbed Shania Queden MANAGER PARKING.OBSTETRICAL TECH Work Phone: [facility] 11-11-2010 tetanus toxoid, redu mag diphtheria toxoid, and acellular pertussis vaccine, adsorbed Shania Queden MANAGER PARKING.OBSTETRICAL TECH Work Phone: [facility] 06-03-2009 novel Influenza-H1N1 -09, live virus for nasal administration Shania Queden MANAGER PARKING.OBSTETRICAL TECH Work Phone: [facility] 06-03-2009 influenza virus vacc ine, unspecified formulation Humera Gillis MA [facility] 11-28-2007 meningococcal polysaccharide (groups A, C, Y and W-135) diphtheria toxoid conjugate vaccine (MCV4P) Shania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 pruritic disorder documented in this encounter [facility] noteNo assessment information availableWCleveland Clinic Children's [facility] Work Phone: Evaluation note* Diagnosis Schizoaffective disorder, unspecified type (HCC)- Primary Adult ADHD Attention deficit disorder with hyperactivity Auditory hallucinations Hallucinations Acute psychosis (HCC) Unspecified psychosis Marijuana use Cannabis abuse, unspecified Financial difficulties Inadequate material resources Acute pain of left shoulder Living in temporary quarters Other specified housing or economic circumstances documented in this encounter [facility] note* Diagnosis Acute pain of left shoulder- Primary Injury of left shoulder, initial encounter documented in this encounter [facility] note* Diagnosis Pain Generalized pain [facility] Additional Instructions Take the antibiotic Augmentin 1 pill twice a day till gone. Motrin for pain and swelling and Tylenol for pain. Ice and elevate. Follow-up or return if getting worse. Are not improving.[facility] Work Phone: Reason for referral (narrative)* Diagnostic Procedure Only (Routine) - Authorized Specialty Diagnoses / Procedures Referred By Sarahiac julián Referred To Contact XR IMAGING Diagnoses Pain Procedures XR SHOULDER GENERAL 3V OR MORE AP/TRUE AP/OTHER LEFT RADEX SHOULDER COMPLETE MINIMUM 2 VIEWS Humera Harper APRN.CNP [address] [place] [address] Xr Imaging Referral ID Status Reason Start Date Expiration Date Visits Requested Visits Authorized [id number] Authorized Auto-Generat ed Referral 01/18/2023 02/17/2024 1 1 * Diagnostic Procedure Only (Routine) - Authorized Specialty Diagnoses / Procedures Referred By Contac t Referred To Contact XR IMAGING Diagnoses Pain Procedures XR SHOULDER GENERAL 3V OR MORE AP/TRUE AP/OTHER RIGHT RADEX SHOULDER COMPLETE MINIMUM 2 VIEWS Humera Harper APRN.OBSTETRICAL TECH [address] [place] [address] Xr Imaging Referral ID Status Reason Start Date Expiration Date Visits Requested Visits Authorized [id number] Authorized Auto-Generat ed Referral 01/18/2023 02/17/2024 1 1 [facility] for referral (narrative)* Diagnostic Procedure Only (Routine) - Closed Specialty Diagnoses / Procedures Referred By Contac t Referred To Contact XR IMAGING Diagnoses Pain Procedures XR SHOULDER GENERAL 3V OR MORE AP/TRUE AP/OTHER LEFT RADEX SHOULDER COMPLETE MINIMUM 2 VIEWS Humera Harper APRN.OBSTETRICAL TECH [address] [id number] [place] [address] Referral ID Status Reason Start Date Expiration Date V isits Requested Visits Authorized [id number] Closed Auto-Generate d Referral 01/18/2023 02/17/2024 1 1 * Diagnostic Procedure Only (Routine) - Closed Specialty Diagnoses / Procedures Referred By Contac t Referred To Contact XR IMAGING Diagnoses Pain Procedures XR SHOULDER GENERAL 3V OR MORE AP/TRUE AP/OTHER RIGHT RADEX SHOULDER COMPLETE MINIMUM 2 VIEWS Humera Harper APRN.OBSTETRICAL TECH [address] [place] [address] [place] [address] Referral ID Status Reason Start Date Expiration Date V isits Requested Visits Authorized [id number] Closed Auto-Generate d Referral 01/18/2023 02/17/2024 1 1 [facility] for referral (narrative)No reason for referral information availableWCleveland Clinic Children's [facility] Work Phone: Summary Purpose Family History Relationship Condition Age at Onset Recorded Date/T geo mother Kidney disorder Unknown father Malignant neoplasm Unknown Advance Directives Documents on File Type Date Recorded 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 No January 07, 2025 8:41am Advance Directive Response Recorded Date/ Time Do you have a Healthcare Power of Land Surveyor Assistant? No January 07, 2025 8:41am Do you have a Healthcare Power of Land Surveyor Assistant? No January 21, 2025 5:05pm Discharge Instructions * Attachments The following attachments cannot be sent through Care Everywhere. * Wound Check (Citizen Of [place]) documented in this encounter Assessments Diagnosis Encounter [...] quarters Procedures CONSULT TO SOCIAL WORK AG (PUBLICATIONS INSPECTOR) Shania Vieira, MANAGER PARKING.OBSTETRICAL TECH [address] [place] [address] Referral ID Status Reason Start Date Expiration Date Visits Requested Visits Authorized [id number] Ref Not Required PCP Requested Referral 01/15/2024 04/14/2024 3 3 Specialty Diagnoses / Procedures Referred By Briana gallego Referred To Contact Orthopedics / [facility] DEPARTMENT Diagnoses Acute pain of left shoulder Injury of left shoulder, initial encounter Procedures CONSULT TO ORTHOPAEDICS OFFICE/OUTPATIENT [facility] 60 MINUTES Shania Vieira APRN.OBSTETRICAL TECH [address] [place] [address] Angel Vaz MD [address] [address] Referral ID Status Reason Start Date Expiration Date Visits Requested Visits Authorized [id number] Authorized PCP Requested Referral 01/28/2024 01/27/2025 1 1 Additional Source Comments (unrecognized sect ion and content) No Status Records FoundNo Status Records FoundNo Status Records FoundNo Status Records FoundNo Status Records FoundNo Status Records FoundNo Status Records FoundNo Status Records Found INFORMATION SOURCE (unrecogn ized section and content) DATE CREATED AUTHOR 02/09/2018 [facility] DATE CREATED AUTHOR AUTHOR'S ORGANIZ ATION 01/07/2021 [facility] DATE CREATED AUTHOR AUTHOR'S ORGANIZ ATION 01/07/2022 [facility] DATE CREATED AUTHOR AUTHOR'S ORGANIZ ATION 01/30/2023 [facility] DATE CREATED AUTHOR AUTHOR'S ORGANIZ ATION 02/06/2023 [facility] DATE CREATED AUTHOR AUTHOR'S ORGANIZ ATION 06/03/2023 [facility] DATE CREATED AUTHOR AUTHOR'S ORGANIZ ATION 01/09/2025 [facility] DATE CREATED AUTHOR AUTHOR'S ORGANIZ ATION 01/14/2025 [facility] Reason for Visit (unrecogniz ed section and content) Reason Comments Wound Check Reason Onset Date Comments ED Follow Up 08/24/2022 [facility] ED discharg e 08/21/2022 ED outreach Reason Comments STD Wants to be checked for STD . GIRL called and said she had gonorrhea and jazmine. Feels tight clamminess per. Pt. And itches. X 1 month Reason Comments Results Reason Onset Date Comments ED outreach 04/11/2023 ED outreach [facility] 04/07/2023 Reason Comments Rash Bilateral legs x 1 w eeks. Hurts Leg Pain X 1 week. Bilateral Reason Onset Date Comments ED Outreach 07/03/2023 [facility] ED 07/01/23 Reason Onset Date Comments ed outreach 10/02/2023 Ed outreach [id number] Reason Comments Appointment Reason Comments Establish Care Reason Comments Consult Reason Comments Radio Gen RMP Specialty Diagnoses / Procedures Referred By Contac t Referred To Contact XR IMAGING Diagnoses Pain Procedures XR SHOULDER GENERAL 3V OR MORE AP/TRUE AP/OTHER LEFT RADEX SHOULDER COMPLETE MINIMUM 2 VIEWS Humera Harper, MANAGER PARKING.OBSTETRICAL TECH [address] [place] [address] Xr Imaging [place] [address] Referral ID Status Reason Start Date Expiration Date V isits Requested Visits Authorized [id number] Closed Auto-Generate d Referral 01/18/2023 02/17/2024 1 1 Reason Onset Date Comments Transition Of Care 04/21/2024 Pt was admitt ed to [facility] on 04/18/2024 for ISABELLA, COVID-19. Pt was d/c on 04/19/2024 Reason Onset Date Comments ED Follow-up 01/07/2025 [facility] ED 2024 Source Comments (unrecognize d section and content) In the event this informatio n is protected by the Federal Confidentiality of Alcohol and Drug Abuse Patient Records regulations: The Federal rules restrict any use of the information to criminally investigate or prosecute any alcohol or drug abuse patient.[facility] the event this information is protected by the Federal Confidentiality of Alcohol and Drug Abuse Patient Records regulations: The Federal rules restrict any use of the information to criminally investigate or prosecute any alcohol or drug abuse patient.[facility] the event this information is protected by the Federal Confidentiality of Alcohol and Drug Abuse Patient Records regulations: The Federal rules restrict any use of the information to criminally investigate or prosecute any alcohol or drug abuse patient.[facility] the event this information is protected by the Federal Confidentiality of Alcohol and Drug Abuse Patient Records regulations: The Federal rules restrict any use of the information to criminally investigate or prosecute any alcohol or drug abuse patient.[facility] the event this information is protected by the Federal Confidentiality of Alcohol and Drug Abuse Patient Records regulations: The Federal rules restrict any use of the information to criminally investigate or prosecute any alcohol or drug abuse patient.[facility] the event this information is protected by the Federal Confidentiality of Alcohol and Drug Abuse Patient Records regulations: The Federal rules restrict any use of the information to criminally investigate or prosecute any alcohol or drug abuse patient.[facility] the event this information is protected by the Federal Confidentiality of Alcohol and Drug Abuse Patient Records regulations: The Federal rules restrict any use of the information to criminally investigate or prosecute any alcohol or drug abuse patient.[facility] the event this information is protected by the Federal Confidentiality of Alcohol and Drug Abuse Patient Records regulations: The Federal rules restrict any use of the information to criminally investigate or prosecute any alcohol or drug abuse patient.[facility] the event this information is protected by the Federal Confidentiality of Alcohol and Drug Abuse Patient Records regulations: The Federal rules restrict any use of the information to criminally investigate or prosecute any alcohol or drug abuse patient.[facility] the event this information is protected by the Federal Confidentiality of Alcohol and Drug Abuse Patient Records regulations: The Federal rules restrict any use of the information to criminally investigate or prosecute any alcohol or drug abuse patient.[facility] the event this information is protected by the Federal Confidentiality of Alcohol and Drug Abuse Patient Records regulations: The Federal rules restrict any use of the information to criminally investigate or prosecute any alcohol or drug abuse patient.[facility] Hospital[facility] the event this information is protected by the Federal Confidentiality of Alcohol and Drug Abuse Patient Records regulations: The Federal rules restrict any use of the information to criminally investigate or prosecute any alcohol or drug abuse patient.[facility] Hospital[facility] the event this information is protected by the Federal Confidentiality of Alcohol and Drug Abuse Patient Records regulations: The Federal rules restrict any use of the information to criminally investigate or prosecute any alcohol or drug abuse patient.[facility] Hospital[facility] the event this information is protected by the Federal Confidentiality of Alcohol and Drug Abuse Patient Records regulations: The Federal rules restrict any use of the information to criminally investigate or prosecute any alcohol or drug abuse patient.[facility] Hospital[facility] the event this information is protected by the Federal Confidentiality of Alcohol and Drug Abuse Patient Records regulations: The Federal rules restrict any use of the information to criminally investigate or prosecute any alcohol or drug abuse patient.[facility] Hospital[facility] the event this information is protected by the Federal Confidentiality of Alcohol and Drug Abuse Patient Records regulations: The Federal rules restrict any use of the information to criminally investigate or prosecute any alcohol or drug abuse patient.[facility] Hospital[facility] the event this information is protected by the Federal Confidentiality of Alcohol and Drug Abuse Patient Records regulations: The Federal rules restrict any use of the information to criminally investigate or prosecute any alcohol or drug abuse patient.[facility] Care Teams (unrecognized sec tion and content) Procurement Agent Relationship Specialty Start Date End Date Shania Vieira, [facility] [address] [place] [address] PCP - General Family Practice 05/17/20 Procurement Agent Relationship Specialty Start Date End Date Shania Vieira, MANAGER PARKING.OBSTETRICAL TECH [address] [place] [address] PCP - General Family Medicine 05/17/20 Procurement Agent Relationship Specialty Start Date End Date hSania Vieira, MANAGER PARKING.OBSTETRICAL TECH [address] [place] [address] PCP - General Family Medicine 05/17/20 Procurement Agent Relationship Specialty Start Date End Date Shania Vieira, MANAGER PARKING.OBSTETRICAL TECH [address] [place] [address] PCP - General Family Medicine 05/17/20 Procurement Agent Relationship Specialty Start Date End Date Shania Vieira, MANAGER PARKING.OBSTETRICAL TECH [address] [address] PCP - General Family Medicine 05/17/20 Procurement Agent Relationship Specialty Start Date End Date Shania Vieira, MANAGER PARKING.OBSTETRICAL TECH [address] [place] [address] PCP - General Family Medicine 05/17/20 Procurement Agent Relationship Specialty Start Date End Date Shania Vieira, MANAGER PARKING.OBSTETRICAL TECH [address] [place] [address] PCP - General Family Medicine 05/17/20 Procurement Agent Relationship Specialty Start Date End Date Shania Vieira, MANAGER PARKING.OBSTETRICAL TECH [address] [place] [address] PCP - General Family Medicine 05/17/20 Procurement Agent Relationship Specialty Start Date End Date Shania Vieira, MANAGER PARKING.OBSTETRICAL TECH [address] [place], [place] [id number] PCP - General Family Medicine 05/17/20 Team Status: Active Member Role Status Dates No Primary Care Physician Primary Care Provider Active Team Status: Inactive Member Role Status Dates Dr. Jose E Meier DO Emergency Provider Active No Primary Care Physician Primary Care Provider Active Procurement Agent Relationship Specialty Start Date End Date Shania Vieira, MANAGER PARKING.OBSTETRICAL TECH [address] [place] [address] PCP - General Family Medicine 01/15/24 Procurement Agent Relationship Specialty Start Date End Date Shania Vieira MANAGER PARKING.OBSTETRICAL TECH [address] [place], [place] [id number] PCP - General Family Medicine 01/15/24 Procurement Agent Relationship Specialty Start Date End Date Shania Vieira, MANAGER PARKING.OBSTETRICAL TECH [address] [place], [place] [id number] PCP - General Family Medicine 05/17/20 12/16/23 Procurement Agent Relationship Specialty Start Date End Date Shania Vieira, MANAGER PARKING.OBSTETRICAL TECH [address] [place] [address] PCP - General Family Medicine 01/15/24 Team Status: Active Member Role Status Dates Shania Vieira ALMOND ROASTER, ALMOND ROASTER-C Primary Care Provider Active Team Status: Inactive Member Role Status Dates Shania Vieira ALMOND ROASTER, ALMOND ROASTER-C Primary Care Provider Active Start: January 07, 2025 End: January 07, 2025 Dr. Stephan Burk MD Emergency Provider Active S tart: January 07, 2025 End: January 07, 2025 Procurement Agent Relationship Specialty Start Date End Date Shania Vieira MANAGER PARKING.OBSTETRICAL TECH [address] [place] [address] PCP - General Family Medicine 01/15/24 Team Status: Inactive Member Role Status Dates Shania Vieira ALMOND ROASTER, ALMOND ROASTER-C Primary Care Provider Active Start: January 07, 2025 End: January 07, 2025 Dr. Stephan Burk MD Attending Provider Active S tart: January 07, 2025 End: January 07, 2025 Dr. Stephan Burk MD Emergency Provider Active S tart: January 07, 2025 End: January 07, 2025 Team Status: Active Member Role Status Dates Shania Vieira ALMOND ROASTER, ALMOND ROASTER-C Primary Care Provider Active Start: January 21, [...] BE BASED ON THE PRIMARY CLINICAL RECORDS. [facility] [employer] [facility]. provides no warranty or guarantee of the accuracy or completeness of information in this document.
--- OUTSIDE RECORDS SUMMARY | 2025-01-22 07:14 | XMS RPT_ITS | CCD ---
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 [place], [address] Erythrocyte distribution width (RBC) [Ratio] 13.3 % Normal 11.6-14.6 [facility] Comment on above: Performed By: #### M 100.637, M100.6796 #### [facility] [address] [place], [address] Hematocrit (Bld) [Volume fraction] 43.8 % Normal 40-54 [facility] Comment on above: Performed By: #### M 100.637, M196 #### [facility] [address] [place], [address] Hemoglobin (Bld) [Mass/Vol] 14.8 g/dL Normal 13.0-16.5 [facility] Comment on above: Performed By: #### M 100.637, #### [facility] [address] [place], [address] IG% 0.400 Normal 0.0-0.9 [facility] Comment on above: Result Comment: IG% - Immature Granulocytes (promyelocytes, myelocytes and metamyelocytes) > 1% indicates that a LEFT SHIFT is Present. Performed By: #### M 100.637, 96 #### [facility] [address] [place], [address] Lymphocytes/100 WBC (Bld) 6.3 % Low 19-41 [facility] Comment on above: Performed By: #### M 100.637, 96 #### [facility] [address] [place], [address] MCH (RBC) [Entitic mass] 29.5 pg Normal 27.0-32.0 [facility] Comment on above: Performed By: #### M 100.637, 96 #### [facility] [address] [place], [address] MCHC (RBC) [Mass/Vol] 33.8 g/dL Normal 32-36 [facility] Comment on above: Performed By: #### M 100.637, 96 #### [facility] [address] [place], [address] MCV (RBC) [Entitic vol] 87.3 fL Normal 80-94 [facility] Comment on above: Performed By: #### M 100.637, M1.96 #### [facility] [address] [place], [address] Monocytes/100 WBC (Bld) 2.0 % Normal 0-10 [facility] Comment on above: Performed By: #### M 100.637, .96 #### [facility] [address] [place], [address] Neutrophils/100 WBC (Bld) 91.2 % High 47-70 [facility] Comment on above: Performed By: #### M 100.637, 96 #### [facility] [address] [place], [address] Nucleated RBC (Bld) [#/Vol] 0 10*3/uL Normal 0-5 [facility] Comment on above: Performed By: #### M 100.637, .96 #### [facility] [address] [place], [address] Platelet mean volume (Bld) [Entitic vol] 10.2 fL Normal 6.2-12.0 [facility] Comment on above: Performed By: #### M 100.637, .96 #### [facility] [address] [place], [address] Platelets (Bld) [#/Vol] 269 10*3/uL Normal 150-450 [facility] Comment on above: Performed By: #### M 100.637, M1.96 #### [facility] [address] [place], [address] RBC (Bld) [#/Vol] 5.02 10*6/uL Normal 4.6-6.2 [facility] Comment on above: Performed By: #### M 100.637, M100.6796 #### [facility] [address] [place], [address] RDW SD 42.8 fl Normal 35.1-43.9 [facility] Comment on above: Performed By: #### M 100.637, M100.6796 #### [facility] [address] [place], [address] WBC (Bld) [#/Vol] 16.6 10*3/uL High 4.4-11.0 [facility] Comment on above: Performed By: #### M 100.637, M100.6796 #### [facility] [address] [place], [address] SMEAR COMMENT SCANNED Normal [facility] Comment on above: Result Comment: NEUT ROPHILLIA PRESENT Performed By: #### L 100.0100, L501.2450, L500.2500, L500.3400, L501.5200 #### [facility] [address] [place], [address] CDIFF (PCR)on 04-18-2024 CDIFF Is the patient receiving laxatives? N New/unexplained onset of 3 or more stools in past 24 hrs? Y Pending 027 027 NAP1-B1 Presumptive Negative *for epidemiolologic???use C. Diff PCR Negative- No toxigenic C. Diff Detected Normal [facility] Comment on above: Performed By: #### M 100.637, M100.6796 #### [facility] [address] [place], [address] CPK Total, Creatine Kinaseon 04-18-2024 CPK TOTAL 790 U/L High 39-308 [facility] Comment on above: Order Comment: Comme nts: add to ED labs Performed By: #### L 501.3560 #### [facility] [address] [place], [address] CRPon 04-18-2024 C-REACTIVE PROT 2.95 mg/L Normal 0.0-3.0 [facility] Comment on above: Order Comment: Comme nts: May add to ED labsmay add to ED labs Result Comment: C-Re active Protein (CRP) provides useful information for the diagnosis, therapy and monitoring of inflammatory processes and associated diseases. For the evaluation of Relative Risk for Cardiovascular Disease, a High Sensitivity CRP (HSCRP) should be ordered. Performed By: #### M 100.637, M100.6796 #### [facility] [address] [place], [address] Comprehensive Metabolic Prof ilon 04-18-2024 Albumin [Mass/Vol] 3.8 g/dL Normal 3.2-5.0 [facility] Comment on above: Performed By: #### M 100.637, M100.6796 #### [facility] [address] [place], [address] Albumin/Globulin [Mass ratio] 1.2 {ratio} Normal 0.9-2.4 [facility] Comment on above: Performed By: #### M 100.637, M100.6796 #### [facility] [address] [place], [address] ALK P 72 U/L Normal 45-117 [facility] Comment on above: Performed By: #### M 100.637, M100.6796 #### [facility] [address] [place], [address] ALT [Catalytic activity/Vol] 51 U/L Normal 16-61 [facility] Comment on above: Performed By: #### M 100.637, M100.6796 #### [facility] [address] [place], [address] AST [Catalytic activity/Vol] 62 U/L High 15-37 [facility] Comment on above: Performed By: #### M 100.637, M100.96 #### [facility] [address] [place], [address] Bilirubin [Mass/Vol] 1.00 mg/dL Normal 0.20-1.00 [facility] Comment on above: Result Comment: For patients on eltrombopag therapy, use of Dimension [place] TBIL is not recommended. Performed By: #### M 100.637, M100.96 #### [facility] [address] [place], [address] BUN/CRE 14.6 RATIO Normal 10-20 [facility] Comment on above: Performed By: #### M 100.637, M1.96 #### [facility] [address] [place], [address] CA,Total 8.9 mg/dL Normal 8.5-10.1 [facility] Comment on above: Performed By: #### M 100.637, M100.96 #### [facility] [address] [place], [address] Chloride [Moles/Vol] 109 mmol/L High 98-107 [facility] Comment on above: Performed By: #### M 100.637, M100.96 #### [facility] [address] [place], [address] CO2 [Moles/Vol] 20.0 mmol/L Low 21.0-32.0 [facility] Comment on above: Performed By: #### M 100.637, M100.6796 #### [facility] [address] [place], [address] Creatinine [Mass/Vol] 1.64 mg/dL High 0.70-1.30 [facility] Comment on above: Result Comment: The validity of the calculated GFR GFRAA in patients over 70 years has not been determined. Clinical correlation is essential. Performed By: #### M 100.637, M100.96 #### [facility] [address] [place], [address] ECRCL 66.96 ml/min Normal [facility] Comment on above: Performed By: #### M 100.637, M100.96 #### [facility] [address] [place], [address] EST GFR - AA 62 mL/min Normal >60 [facility] Comment on above: Result Comment: Afri can [place] GFR Calc Performed By: #### M 100.637, M1.96 #### [facility] [address] [place], [address] GAP 10 Normal 5-15 [facility] Comment on above: Performed By: #### M 100.637, .96 #### [facility] [address] [place], [address] GFR/1.73 sq M.predicted among non-blacks MDRD (S/P/Bld) [Vol rate/Area] 51 mL/min/{1.73_m2} Low >60 [facility] Comment on above: Result Comment: Non- GFR Calc Performed By: #### M 100.637, M1.96 #### [facility] [address] [place], [address] Globulin (S) [Mass/Vol] 3.1 g/dL Normal 2.2-4.2 [facility] Comment on above: Performed By: #### M 100.637, M100.96 #### [facility] [address] [place], [address] Glucose [Mass/Vol] 116 mg/dL High 74-106 [facility] Comment on above: Result Comment: Fast ing Glucose result from 100 to 125 mg/dL suggests IMPAIRED HOMEOSTASIS per A.D.A. criteria. Performed By: #### M 100.637, M100.6796 #### [facility] [address] [place], [address] Potassium [Moles/Vol] 4.2 mmol/L Normal 3.5-5.1 [facility] Comment on above: Performed By: #### M 100.637, M100.6796 #### [facility] [address] [place], [address] Sodium [Moles/Vol] 139 mmol/L Normal 136-145 [facility] Comment on above: Performed By: #### M 100.637, M100.6796 #### [facility] [address] [place], [address] T PROT 6.9 g/dL Normal 6.4-8.2 [facility] Comment on above: Performed By: #### M 100.637, M100.96 #### [facility] [address] [place], [address] Urea nitrogen [Mass/Vol] 24 mg/dL High 7-18 [facility] Comment on above: Performed By: #### M 100.637, M100.6796 #### [facility] [address] [place], [address] D-Dimer Quantitative (DVT/PE )on 04-18-2024 D-DIMER QUANT 0.39 FEU/ug/m Normal 0.27-0.49 [facility] Comment on above: Result Comment: NORM AL D-Dimer level (<0.50) indicates no DVT or PE. Performed By: #### M 100.637, M100.6796 #### [facility] [address] [place], [address] Emergency Department Summary on 04-18-2024 Emergency Department Summary [facility] Medical Records Department [address] [place] [address] Emergency Department Summary 04/18/24 MR#: [id number] Acct: [id number] Name: GABRIELA VIDAL Jr. Rep #: [id number] : 1990 33 From: Esteban Medel DO [...] viral st (more content not included)... Normal [facility] Erythrocyte Sed Rateon 04-18 SED RATE Normal 0-20 [facility] Comment on above: Result Comment: JIMMY ASKEW,RN AWARE OF CANCELLING, SHE WILL INFORM Performed By: #### M 100633, M100.6796 #### [facility] [address] [place], [place], [address] Ferritinon 04-18-2024 Ferritin [Mass/Vol] 175 ng/mL Normal 26-388 [facility] Comment on above: Order Comment: Comme nts: May add to ED labsmay add to ED labs Performed By: #### M 100.753, M100.3496 #### [facility] [address] [place], [address] H AND P Exam - Hospitaliston 04-18-2024 H&P Exam - Hospitalist [facility] Medical Records Department [address] [facility] [place] [address] H P Exam - Hospitalist 04/18/24 0228 MR#: [id number] Acct: [id number] Name: GABRIELA VIDAL Rep #: [id number] : 1990 33 From: Lucero Vidal MD PCP: ELOISA Braden Status:ADM IN Location: MS3 [facility] HPI - General General Date of Admission: 04/18/24 Date of Service: 04/18/24 Chief Complaint: N/V/D HPI Narrative The patient is a 33 y/o M w/ PMHx: Anxiety and Depression/Mood disorder/High suspicion underlying schizophrenia with history of frequent auditory hallucinations, Tobacco use, CKD stage II per GFR trending, History of Polysubstance abuse (Fentanyl, Methamphetamines per prior records) who presents to the [facility] ED on 04/18/24 with history of [...] Examination: Genera (more content not included)... Normal [facility] HIV - WCHon 04-18-2024 HIV Non-Reactive Normal Nonreactive [facility] Comment on above: Order Comment: Reaso n for Exam: Hx polysubstance abuseReason for Exam: Hepatitis Screen Performed By: #### L 509.8000, L3890.6005, L3890.6100, L3890.6200, L3890.6300 ####[facility] [address] [place], [place], [address] Hepatitis B Surface Antibody on 04-18-2024 HEP B Surf Ab Non-Reactive Normal [facility] Comment on above: Order Comment: Reaso n for Exam: Hx polysubstance abuseReason for Exam: Hepatitis Screen Result Comment: Non Reactive: Inconsistent with immunity less than <10 mIU/mL Reactive: Consistent with immunity greater than or equal to 10 mIU/mL Performed By: #### L 509.8000, L3890.6005, L3890.6100, L3890.6200, L3890.6300 ####[facility] [address] [place], [place], [address] Hepatitis B Surface Antigeno n 04-18-2024 HEP B Surf Ag Non-Reactive Normal Nonreactive [facility] Comment on above: Order Comment: Reaso n for Exam: Hx polysubstance abuseReason for Exam: Hepatitis Screen Performed By: #### L 509.8000, L3890.6005, L3890.6100, L3890.6200, L3890.6300 ####[facility] [address] [place], [address] Hepatitis C Antibodyon 04-18 Hepatitis C AB Non-Reactive Normal Nonreactive [facility] Comment on above: Order Comment: Reaso n for Exam: Hx polysubstance abuseReason for Exam: Hepatitis Screen Result Comment: Non Reactive: < 0.8 Equivocal: >/= 0.8 to < 1.0 Reactive: >/= 1.0 The CDC requires that a reactive/equivocal HCV antibody result be sent out for confirmation. HCV Quant by PCR testing. Performed By: #### L 509.8000, L3890.6005, L3890.6100, L3890.6200, L3890.6300 ####[facility] [address] [place], [place], [address] L509.8000on 04-18-2024 Syphilis Abs Non-Reactive Normal [facility] Comment on above: Order Comment: Reaso n for Exam: Hx polysubstance abuseReason for Exam: Hepatitis Screen Performed By: #### L 509.8000, L3890.6005, L3890.6100, L3890.6200, L3890.6300 ####[facility] [address] [place], [address] LDHon 04-18-2024 LDH 338 U/L High 87-241 [facility] Comment on above: Order Comment: Comme nts: May add to ED labsmay add to ED labs Performed By: #### M 100.637, M100.6796 #### [facility] [address] [place], [address] Lipaseon 04-18-2024 Lipase [Catalytic activity/Vol] 17 U/L Normal 13-75 [facility] Comment on above: Result Comment: Aniyah castañeda note: LIPASE revised reference range effective 22. New Lipase methodology. Expected to produce lower values than the previous assay method. NEW Reference Range: 13 - 75 U/L Performed By: #### L 100.0100, L501.2450, L500.2500, L500.3400, L501.5200 #### [facility] [address] [place], [address] Liver Profileon 04-18-2024 Albumin [Mass/Vol] 4.8 g/dL Normal 3.2-5.0 [facility] Comment on above: Performed By: #### L 100.0100, L501.2450, L500.2500, L500.3400, L501.5200 #### [facility] [address] [place], [address] ALK P 85 U/L Normal 45-117 [facility] Comment on above: Performed By: #### L 100.0100, L501.2450, L500.2500, L500.3400, L501.5200 #### [facility] [address] [place], [address] ALT [Catalytic activity/Vol] 61 U/L Normal 16-61 [facility] Comment on above: Performed By: #### L 100.0100, L501.2450, L500.2500, L500.3400, L501.5200 #### [facility] [address] [place], [address] AST [Catalytic activity/Vol] 59 U/L High 15-37 [facility] Comment on above: Performed By: #### L 100.0100, L501.2450, L500.2500, L500.3400, L501.5200 #### [facility] [address] [place], [address] Bilirubin [Mass/Vol] 1.50 mg/dL High 0.20-1.00 [facility] Comment on above: Result Comment: For patients on eltrombopag therapy, use of Dimension [place] TBIL is not recommended. Performed By: #### L 100.0100, L501.2450, L500.2500, L500.3400, L501.5200 #### [facility] [address] [place], [address] Bilirubin.direct [Mass/Vol] 0.37 mg/dL High 0.00-0.30 [facility] Comment on above: Performed By: #### L 100.0100, L501.2450, L500.2500, L500.3400, L501.5200 #### [facility] [address] [place], [address] Globulin (S) [Mass/Vol] 3.6 g/dL Normal 2.2-4.2 [facility] Comment on above: Performed By: #### L 100.0100, L501.2450, L500.2500, L500.3400, L501.5200 #### [facility] [address] [place], [address] T PROT 8.4 g/dL High 6.4-8.2 [facility] Comment on above: Performed By: #### L 100.0100, L501.2450, L500.2500, L500.3400, L501.5200 #### [facility] [address] [place], [address] M100.678on 04-18-2024 M100.678 Copy of report sent to Infection Control Printer MS#[id number] 04/18/24 1335 ERICKA. CRITICAL VALUE CALLED TO LSPARR 04/18/24 0122 Abundio Leon. RESULTS READ BACK BY SAME. SARS-CoV-2 (COVID 19) A Positive A INFLUENZA A Negative INFLUENZA B Negative RSV PCR Negative SARS-CoV-2 (COVID 19 PCR) Normal [facility] Comment on above: Performed By: #### M 100.678 ####[facility] [address] [place], [address] Magnesiumon 04-18-2024 Magnesium [Mass/Vol] 2.2 mg/dL Normal 1.6-2.6 [facility] Comment on above: Performed By: #### L 100.0100, L501.2450, L500.2500, L500.3400, L501.5200 #### [facility] [address] [place], [address] Procalcitoninon 04-18-2024 Procalcitonin 3.46 ng/mL High 0.00-0.09 [facility] Comment on above: Result Comment: A [...] Performed By: #### M 100.637, M196 #### [facility] [address] [place], [address] Urine Drug Screen (VISTA)on 04-18-2024 AMPHETAMINES Positive Abnormal <1000 ng/mL [facility] Comment on above: Performed By: #### M 100.637, 96 #### [facility] [address] [place], [address] BARBITIURATES Negative Normal < 200 ng/mL [facility] Comment on above: Performed By: #### M 100.637, 96 #### [facility] [address] [place], [address] BENZODIAZIPINE Negative Normal < 200 ng/mL [facility] Comment on above: Performed By: #### M 100.63, 96 #### [facility] [address] [place], [address] COCAINE Negative Normal < 300 ng/mL [facility] Comment on above: Performed By: #### M 100.637, 96 #### [facility] [address] [place], [address] ECSTACY Positive Abnormal < 500 ng/mL [facility] Comment on above: Performed By: #### M 100.637, 96 #### [facility] [address] [place], [address] METHADONE Negative Normal < 300 ng/mL [facility] Comment on above: Performed By: #### M 100.637, M196 #### [facility] [address] [place], [address] OPIATES Negative Normal < 300 ng/mL [facility] Comment on above: Performed By: #### M 100.637, M100.6796 #### [facility] [address] [place], [place], [address] PCP Negative Normal < 25 ng/mL [facility] Comment on above: Performed By: #### M 100.637, M100.6796 #### [facility] [address] [place], [place], [address] THC Positive Abnormal < 50 ng/mL [facility] Comment on above: Performed By: #### M 100.637, M100.6796 #### [facility] [address] [place], [place], [address] VISTA UDS PH 3 Normal [facility] Comment on above: Performed By: #### M 100.637, M100.6796 #### [facility] [address] [place], [place], [address] CNPLindy 01-28-2024 MARTHA Telephone (AGFAMPLE) GABRIELA VIDAL JR. ([id number]) 1990 M Date Time Provider Department 01/28/24 [...] Date Reviewed: 01/15/2024 Reviewed by: Shania Vieira APRN.ENGINEERING AND DEVELOPMENT DIRECTOR - Fully Assessed Reason for Visit: Consult [502] Primary Visit Diagnosis:Acute pain of left shoulder [M25.512] Other Visit Diagnosis:Injury of left shoulder, initial encounter [S49.92XA] Order(s):CONSULT TO ORTHOPAEDICS [90] Order #: [id number]: 1 FUTURE Prescriptions as of 01/28/2024 - [...] Status:Closed by SHANIA VIEIRA on 01/28/24 Normal [facility] Absolute lymphocyte countOrd ered By: Jose E Meier on 09-28-2023 Lymphocytes Auto (Unsp spec) [#/Vol] 1.95 10*3/uL 0.83-4.51 [facility] Automated lymphocyte count a s percentage of total leukocytesOrdered By: Jose E Meier on 09-28-2023 Lymphocytes/100 WBC Auto (Unsp spec) 19.5 % 19-41 [facility] Basophil percentageOrdered B y: Jose E Meier on 09-28-2023 Basophils/100 WBC (Bld) 0.5 % 0-1 [facility] Chloride [Moles/Vol] 113 mmol/L 98-107 [facility] Eosinophils/100 WBC (Bld) 0.3 % 0-5 [facility] Glucose [Mass/Vol] 114 mg/dL 74-106 [facility] Comment on above: Fasting Glucose resu lt from 100 to 125 mg/dL suggests IMPAIRED HOMEOSTASIS per A.D.A. criteria. Hemoglobin (Bld) [Mass/Vol] 14.9 g/dL 13.0-16.5 [facility] Monocytes/100 WBC (Bld) 5.9 % 0-10 [facility] Neutrophils (Bld) [#/Vol] 7.3 10*3/uL 2.0-7.7 [facility] Neutrophils/100 WBC (Bld) 73.3 % 47-70 [facility] Potassium [Moles/Vol] 3.7 mmol/L 3.5-5.1 [facility] Sodium [Moles/Vol] 143 mmol/L 136-145 [facility] WBC (Bld) [#/Vol] 10.0 10*3/uL 4.4-11.0 [facility] Determination of erythrocyte mean corpuscular volume (MCV)Ordered By: Jose E Meier on 09-28-2023 MCV (RBC) [Entitic vol] 89.6 fL 80-94 [facility] Erythrocyte distribution wid th ratioOrdered By: Jose E Meier on 09-28-2023 Erythrocyte distribution width (RBC) [Ratio] 12.3 % 11.6-14.6 [facility] Erythrocyte distribution wid th standard deviationOrdered By: Jose E Meier on 09-28-2023 Erythrocyte distribution width (RBC) [Entitic vol] 40.1 fL 35.1-43.9 [facility] Hematocrit Auto (Bld) [Volum e fraction]Ordered By: Jose E Meier on 09-28-2023 Hematocrit (Bld) [Volume fraction] 44.8 % 40-54 [facility] Immature granulocytes/100 WB C Auto (Bld)Ordered By: Jose E Meier on 09-28-2023 Immature granulocytes/100 WBC (Bld) 0.500 % 0.0-0.9 [facility] Comment on above: IG% - Immature Granu locytes (promyelocytes, myelocytes and metamyelocytes) > 1% indicates that a LEFT SHIFT is Present. Laboratory - Chemistry and C hemistry - challengeOrdered By: Jose E Meier on 09-28-2023 CO2 [Moles/Vol] 28.0 mmol/L 21.0-32.0 [facility] Urea nitrogen/Creatinine [Mass ratio] 15.7 mg/mg 10-20 [facility] - Drug toxicology Ordered By: Jose E Meier on 09-28-2023 Amphetamines Ql (U) Negative <1000 ng/mL [facility] Benzodiazepines Ql (U) Negative < 200 ng/mL [facility] Cannabinoids Screen Ql (U) Positive < 50 ng/mL [facility] Cocaine Ql (U) Negative < 300 ng/mL [facility] Opiates Ql (U) Negative < 300 ng/mL [facility] - Hematology and Cell countsOrdered By: Jose E Meier on 09-28-2023 MCH (RBC) [Entitic mass] 29.8 pg 27.0-32.0 [facility] MCHC (RBC) [Mass/Vol] 33.3 g/dL 32-36 [facility] Nucleated RBC/100 WBC (Bld) [Ratio] 0 % 0-5 [facility] Platelet mean volume (Bld) [Entitic vol] 10.8 fL 6.2-12.0 [facility] Platelets (Bld) [#/Vol] 256 10*3/uL 150-450 [facility] - Microbiology an d Antimicrobial susceptibilityOrdered By: Jose E Meier on 09-28-2023 SARS-CoV-2 (COVID-19) RNA CARLOS+probe Ql (Unsp spec) [facility] No Panel InformationOrdered By: Jose E Meier on 09-28-2023 Estimated Creatinine Clearance Calc 105.36 ml/min [facility] Estimated GFR (MDRD) Amer 107 mL/min >60 [facility] Comment on above: GFR Calc Estimated GFR (MDRD) Non-Af Amer 88 mL/min >60 [facility] Comment on above: Non- GFR Calc Ethyl Alcohol Level 4.0 mg/dL [facility] Comment on above: The serum:whole bloo d ethanol ratio is approximately 1.14and varies slightly with hematocrit. Medical Alcohol reference interval and critical value innon-tolerant individuals; 50 - 100 Impairment 100 Intoxication 100 - 250 Severe Poisoning 250 - 400 Deep/possible fatal coma MDMA (Ecstasy) Screen Negative < 500 ng/mL [facility] Urine Barbiturates Screen Negative < 200 ng/mL [facility] Urine Drug Screen Comment [facility] Comment on above: CONFIRMATORY TESTING FOR [...] Methadone Screen Negative < 300 ng/mL [facility] RBC Auto (Bld) [#/Vol]Ordere d By: Jose E Meier on 09-28-2023 RBC (Bld) [#/Vol] 5.00 10*6/uL 4.6-6.2 [facility] Serum or plasma calcium jacob urement (mass/volume)Ordered By: Jose E Meier on 09-28-2023 Calcium [Mass/Vol] 8.7 mg/dL 8.5-10.1 [facility] Serum or plasma creatinine m easurement (mass/volume)Ordered By: Jose E Meier on 09-28-2023 Creatinine [Mass/Vol] 1.02 mg/dL 0.70-1.30 [facility] Comment on above: The validity of the calculated GFR & GFRAA in patients over 70 years has not been determined. Clinical correlation is essential. Serum or plasma urea nitroge n measurement (mass/volume)Ordered By: Jose E Meier on 09-28-2023 Urea nitrogen [Mass/Vol] 16 mg/dL 7-18 [facility] Thin prep Papanicolaou smear with manual screeningOrdered By: Jose E Meier on 09-28-2023 Thin prep Papanicolaou smear with manual screening 2 5-15 [facility] Urine phencyclidine (PCP) de tectionOrdered By: Jose E Meier on 09-28-2023 Phencyclidine Ql (U) Negative < 25 ng/mL [facility] ALLIED HEALTHon 01-29-2023 ALLIED HEALTH HNO ID: [id number] Author: RT Latoya(R) Service: Radiology Author Type: Professional Tutor Type: Allied Health Filed: 01/29/2023 1:10 PM [...] Latoya(R) January 29, 2023 1:10 PM Normal [facility] CBC W Auto Differential pane l (Bld)on 01-29-2023 Basophils (Bld) [#/Vol] 0.03 10*3/uL Normal <0.11 [facility] Comment on above: Order Comment: Speci men Type: BLOOD SPECIMEN Ordering Facility: [facility] Address: [address] [place] [address] Performed By: #### 5 7021-8 #### [facility] CLIA [id number] [address] [place] [address] [place] Basophils/100 WBC (Bld) 0.5 % Normal [facility] Comment on above: Order Comment: Speci men Type: BLOOD SPECIMEN Ordering Facility: [facility] Address: [address] [place] [address] Performed By: #### 5 7021-8 #### [facility] CLIA [id number] [address] [place] [address] [place] Differential cell count method Nom (Bld) Auto Normal [facility] Comment on above: Order Comment: Speci men Type: BLOOD SPECIMEN Ordering Facility: [facility] Address: [address] [address] Performed By: #### 5 7021-8 #### [facility] CLIA [id number] [place] [address] [place] Eosinophils (Bld) [#/Vol] 0.16 10*3/uL Normal <0.46 [facility] Comment on above: Order Comment: Speci men Type: BLOOD SPECIMEN Ordering Facility: [facility] Address: [address] [address] Performed By: #### 5 7021-8 #### [facility] CLIA [id number] [address] [place] [address] [place] Eosinophils/100 WBC (Bld) 2.4 % Normal [facility] Comment on above: Order Comment: Speci men Type: BLOOD SPECIMEN Ordering Facility: [facility] Address: [address] [place] [address] Performed By: #### 5 7021-8 #### [facility] CLIA [id number] [address] [place] [address] [place] Erythrocyte distribution width (RBC) [Ratio] 12.7 % Normal 11.5-15.0 [facility] Comment on above: Order Comment: Speci men Type: BLOOD SPECIMEN Ordering Facility: [facility] Address: [address] [place] [address] Performed By: #### 5 7021-8 #### [facility] CLIA [id number] [address] [place] [address] [place] Hematocrit (Bld) [Volume fraction] 39.3 % Normal 39.0-51.0 [facility] Comment on above: Order Comment: Speci men Type: BLOOD SPECIMEN Ordering Facility: [facility] Address: [address] [place] [address] Performed By: #### 5 7021-8 #### [facility] CLIA [id number] [place] [address] [place] Hemoglobin (Bld) [Mass/Vol] 13.1 g/dL Normal 13.0-17.0 [facility] Comment on above: Order Comment: Speci men Type: BLOOD SPECIMEN Ordering Facility: [facility] Address: [address] [place] [address] Performed By: #### 5 7021-8 #### [facility] CLIA [id number] [place] [address] [place] Immature granulocytes (Bld) [#/Vol] 0.03 10*3/uL Normal <0.10 [facility] Comment on above: Order Comment: Speci men Type: BLOOD SPECIMEN Ordering Facility: [facility] Address: [address] [place] [address] Performed By: #### 5 7021-8 #### [facility] [place] [id number] [address] [place] [address] [place] Immature granulocytes/100 WBC (Bld) 0.5 % Normal [facility] Comment on above: Order Comment: Speci men Type: BLOOD SPECIMEN Ordering Facility: [facility] Address: [address] [place] [address] Performed By: #### 5 7021-8 #### [facility] [place] [id number] [address] [place] [address] [place] Lymphocytes (Bld) [#/Vol] 3.11 10*3/uL Normal 1.00-4.00 [facility] Comment on above: Order Comment: Speci men Type: BLOOD SPECIMEN Ordering Facility: [facility] Address: [address] [place] [address] Performed By: #### 5 7021-8 #### [facility] CLIA [id number] [address] [place] [address] [place] Lymphocytes/100 WBC (Bld) 47.3 % Normal [facility] Comment on above: Order Comment: Speci men Type: BLOOD SPECIMEN Ordering Facility: [facility] Address: [address] [address] Performed By: #### 5 7021-8 #### [facility] CLIA [id number] [address] [place] [address] MCH (RBC) [Entitic mass] 30.0 pg Normal 26.0-34.0 [facility] Comment on above: Order Comment: Speci men Type: BLOOD SPECIMEN Ordering Facility: [facility] Address: [address] [address] Performed By: #### 5 7021-8 #### [facility] CLIA [id number] [address] [place] [address] [place] MCHC (RBC) [Mass/Vol] 33.3 g/dL Normal 30.5-36.[address] [facility] Comment on above: Order Comment: Speci men Type: BLOOD SPECIMEN Ordering Facility: [facility] Address: [address] [address] Performed By: #### 5 7021-8 #### [facility] CLIA [id number] [address] [place] [address] [place] MCV (RBC) [Entitic vol] 90.1 fL Normal 80.0-100.0 M [facility] Comment on above: Order Comment: Speci men Type: BLOOD SPECIMEN Ordering Facility: [facility] Address: [address] [address] Performed By: #### 5 7021-8 #### [facility] CLIA [id number] [address] [place] [address] [place] Monocytes (Bld) [#/Vol] 0.65 10*3/uL Normal <0.87 [facility] Comment on above: Order Comment: Speci men Type: BLOOD SPECIMEN Ordering Facility: [facility] Address: [address] [address] Performed By: #### 5 7021-8 #### [facility] CLIA [id number] [address] [place], [place] [address] [place] Monocytes/100 WBC (Bld) 9.9 % Normal [facility] Comment on above: Order Comment: Speci men Type: BLOOD SPECIMEN Ordering Facility: [facility] Address: [address] [place] [address] Performed By: #### 5 7021-8 #### [facility] CLIA [id number] [place] [address] [place] Neutrophils (Bld) [#/Vol] 2.59 10*3/uL Normal 1.45-7.50 [facility] Comment on above: Order Comment: Speci men Type: BLOOD SPECIMEN Ordering Facility: [facility] Address: [address] [place] [address] Performed By: #### 5 7021-8 #### [facility] CLIA [id number] [address] [place] [address] [place] Neutrophils/100 WBC (Bld) 39.4 % Normal [facility] Comment on above: Order Comment: Speci men Type: BLOOD SPECIMEN Ordering Facility: [facility] Address: [address] [place] [address] Performed By: #### 5 7021-8 #### [facility] CLIA [id number] [address] [place] [address] [place] Nucleated RBC (Bld) [#/Vol] 10*3/uL Normal <0.01 [facility] Comment on above: Order Comment: Speci men Type: BLOOD SPECIMEN Ordering Facility: [facility] Address: [address] [place] [address] Performed By: #### 5 7021-8 #### [facility] CLIA [id number] [address] [place] [address] [place] Nucleated RBC/100 WBC (Bld) [Ratio] 0.0 /100 WBC Normal [facility] Comment on above: Order Comment: Speci men Type: BLOOD SPECIMEN Ordering Facility: [facility] Address: [address] [place] [address] Performed By: #### 5 7021-8 #### [facility] CLIA [id number] [place] [address] [place] Platelet mean volume (Bld) [Entitic vol] 10.9 fL Normal 9.0-12.7 [facility] Comment on above: Order Comment: Speci men Type: BLOOD SPECIMEN Ordering Facility: [facility] Address: [address] [place] [address] Performed By: #### 5 7021-8 #### [facility] CLIA [id number] [place] [address] [place] Platelets (Bld) [#/Vol] 209 10*3/uL Normal 150-400 [facility] Comment on above: Order Comment: Speci men Type: BLOOD SPECIMEN Ordering Facility: [facility] Address: [address] [place] [address] Performed By: #### 5 7021-8 #### [facility] CLIA [id number] [address] [place] [address] [place] RBC (Bld) [#/Vol] 4.36 10*6/uL Normal 4.20-6.00 [facility] Comment on above: Order Comment: Speci men Type: BLOOD SPECIMEN Ordering Facility: [facility] Address: [address] [place] [address] Performed By: #### 5 7021-8 #### [facility] CLIA [id number] [address] [place] [address] [place] WBC (Bld) [#/Vol] 6.57 10*3/uL Normal 3.70-11.00 [facility] Comment on above: Order Comment: Speci men Type: BLOOD SPECIMEN Ordering Facility: [facility] Address: [address] [place] [address] Performed By: #### 5 7021-8 #### [facility] CLIA [id number] [address] [place] [address] [place] Comprehensive metabolic 2000 panelon 01-29-2023 Albumin [Mass/Vol] 3.6 g/dL Low 3.9-4.9 [facility] Comment on above: Order Comment: Speci men Type: BLOOD SPECIMEN Ordering Facility: [facility] Address: [address] [place] [address] Performed By: #### 1 9123-9, [id number], 81515-3 #### [facility] CLIA [id number] [place] [address] [place] ALP [Catalytic activity/Vol] 46 U/L Normal 38-113 [facility] Comment on above: Order Comment: Speci men Type: BLOOD SPECIMEN Ordering Facility: [facility] Address: [address] [place] [address] Performed By: #### 1 9123-9, [id number], 11941-5 #### [facility] CLIA [id number] [address] [place] [address] [place] ALT [Catalytic activity/Vol] 13 U/L Normal 10-54 [facility] Comment on above: Order Comment: Speci men Type: BLOOD SPECIMEN Ordering Facility: [facility] Address: [address] [place] [address] Performed By: #### 1 9123-9, [id number], 18564-0 #### [facility] CLIA [id number] [address] [place] [address] [place] Anion gap [Moles/Vol] 7 mmol/L Low 9-[address] [facility] Comment on above: Order Comment: Speci men Type: BLOOD SPECIMEN Ordering Facility: [facility] Address: [address] [place] [address] Performed By: #### 1 9123-9, [id number], 85543-8 #### [facility] CLIA [id number] [place] [address] [place] AST [Catalytic activity/Vol] 16 U/L Normal 14-40 [facility] Comment on above: Order Comment: Speci men Type: BLOOD SPECIMEN Ordering Facility: [facility] Address: [address] Performed By: #### 1 23-9, [id number], #### [facility] CLIA [id number] [address] [place] [address] [place] Bilirubin [Mass/Vol] 0.4 mg/dL Normal 0.2-1.3 [facility] Comment on above: Order Comment: Speci men Type: BLOOD SPECIMEN Ordering Facility: [facility] Address: [address] [address] Performed By: #### 1 23-9, [id number], #### [facility] CLIA [id number] [address] [place] [address] [place] Calcium [Mass/Vol] 8.4 mg/dL Low 8.5-10.2 [facility] Comment on above: Order Comment: Speci men Type: BLOOD SPECIMEN Ordering Facility: [facility] Address: [address] [address] Performed By: #### 1 23-9, [id number], #### [facility] CLIA [id number] [address] [place] [address] [place] Chloride [Moles/Vol] 108 mmol/L High 97-105 [facility] Comment on above: Order Comment: Speci men Type: BLOOD SPECIMEN Ordering Facility: [facility] Address: [address] Performed By: #### 1 23-9, [id number], #### [facility] CLIA [id number] [address] [place] [address] [place] CO2 [Moles/Vol] 26 mmol/L Normal 22-30 [facility] Comment on above: Order Comment: Speci men Type: BLOOD SPECIMEN Ordering Facility: [facility] Address: [address] Performed By: #### 1 9123-9, [id number], #### [facility] CLIA [id number] [address] [place] [address] [place] Creatinine [Mass/Vol] 1.14 mg/dL Normal 0.73-1.[address] [facility] Comment on above: Order Comment: Cristeal ness Type: BLOOD SPECIMEN Ordering Facility: [facility] Address: [address] [place] [address] Performed By: #### 1 9123-9, [id number], 24432-1 #### [facility] CLIA [id number] [place] [address] [place] ESTIMATED GLOMERULAR FILTRATION RATE 87 mL/min/1.73m??? Normal >=60 [facility] Comment on above: Order Comment: Cristela ness Type: BLOOD SPECIMEN Ordering Facility: [facility] Address: [address] [place] [address] Result Comment: Cathy mated Glomerular Filtration Rate [...] actual GFR. Performed By: #### 1 9123-9, [id number], 34361-0 #### [facility] CLIA [id number] [address] [place] [address] [place] Glucose [Mass/Vol] 115 mg/dL High 74-99 [facility] Comment on above: Order Comment: Cristela ness Type: BLOOD SPECIMEN Ordering Facility: [facility] Address: [address] [place] [address] Result Comment: The [place] [employer] (ADA) provides guidance for [...] Standards of Medical Care in Diabetes 2016, [place] [employer]. Diabetes Care. 2016.39(Suppl 1). Performed By: #### 1 9123-9, [id number], #### [facility] CLIA [id number] [address] [place] [address] [place] Potassium [Moles/Vol] 4.1 mmol/L Normal 3.7-5.[address] [facility] Comment on above: Order Comment: Speci men Type: BLOOD SPECIMEN Ordering Facility: [facility] Address: [address] [address] Performed By: #### 1 9123-9, [id number], #### [facility] CLIA [id number] [address] [place] [address] [place] Protein [Mass/Vol] 5.5 g/dL Low 6.3-8.0 [facility] Comment on above: Order Comment: Speci men Type: BLOOD SPECIMEN Ordering Facility: [facility] Address: [address] [place] [address] Performed By: #### 1 23-9, [id number], #### [facility] CLIA [id number] [address] [place] [address] [place] Sodium [Moles/Vol] 141 mmol/L Normal 136-144 [facility] Comment on above: Order Comment: Speci men Type: BLOOD SPECIMEN Ordering Facility: [facility] Address: [address] [place] [address] Performed By: #### 1 23-9, [id number], #### [facility] CLIA [id number] [address] [place] [address] [place] Urea nitrogen [Mass/Vol] 12 mg/dL Normal 9-24 [facility] Comment on above: Order Comment: Speci men Type: BLOOD SPECIMEN Ordering Facility: [facility] Address: [address] [place] [address] Performed By: #### 1 9123-9, [id number], 05406-5 #### [facility] [place] [id number] [address] [place] [address] [place] [facility] ECG COMPLETEon 01-29-2023 ECG COMPLETE Ventricular Rate : 7 8 BPM Atrial Rate : 78 BPM P-R Interval : 160 ms QRS Duration : 122 ms Q-T Interval : 374 ms QTC Calculation(Bazett) : 426 ms Calculated P [place] : 64 degrees Calculated R [place] : 82 degrees Calculated T [place] : 49 degrees Sinus rhythm IVCD, consider atypical RBBB ST elevation suggests acute pericarditis Abnormal ECG no stemi Confirmed by ERIK DAVIS MD ([id number]), writer editor SUZI BRUNO ([id number]) on 01/30/2023 10:18:17 AM NAME : GABRIELA VIDAL PID : [id number] : 1990 Gender : Male Race : ORD : [id number] Procedure Date : Jan 29 2023 12:34:12 Edit Date : Jan 30 2023 10:18:21 Diagnosis: Sinus rhythm IVCD, consider atypical RBBB ST elevation suggests acute pericarditis Abnormal ECG no stemi Confirmed by ERIK DAVIS MD ([id number]), writer editor SUZI BRUNO ([id number]) on 01/30/2023 10:18:17 AM Test Reason : Chest Pain Location : 18 : ED [id number] Overread By : ERIK DAVIS MD Edited By : SUZI BRUNO Referred By : , Acquired by : , [facility] ED NOTEon 01-29-2023 ED NOTE HNO ID: [id number] Author: Juliana Aguilera, ANDRES Service: Nursing Author [...] Pt ambulatory with steady gait on departure. [facility] ED NOTE HNO ID: [id number] Author: Juliana Aguilera RN Service: Nursing Author [...] up, bed in locked and low position [facility] ED NOTE HNO ID: [id number] Author: Anabel Hernandez RN Service: ? Author Type: Registered Nurse Type: ED Notes Filed: 01/29/2023 12:23 PM Note Text: Bed: ED-13 Expected date: Expected time: Means of arrival: Comments: EMS [facility] ED PROV NOTEon 01-29-2023 ED PROV NOTE HNO ID: [id number] Author: Erik Davis MD Service: Emergency Medicine [...] nursing note reviewed. Exam conducted with a mechanical product engineer present. Constitutional: General: He is not in [...] intact. Motor: Motor function is intact. Coordination: Oxqfbm-Grpx-Qqcoas Test normal. Gait: Gait is intact. Psychiatric: [...] Final Result IMPRESSION: No acute radiographic abnormality. Campus Wellness Coordinator: PSCB Transcribe Date/Time: Jan 29 2023 1:19P [...] per minute AXIS: Normal axis INTERVALS: Normal ND interval QRS COMPLEX: Normal ST SE (more content not included)... Normal [facility] HIGH SENSITIVITY TROPONIN T (INITIAL)on 01-29-2023 HIGH SENSITIVITY SHEBA 7 ng/L Normal <12 [facility] Comment on above: Order Comment: Speci men Type: BLOOD SPECIMENOrdering Facility: [facility] Address: [address] [place] [phone] Result Comment: When assessing risk for acute [...] day MACE. Performed By: #### 1 9123-9, [id number], 40436-5 ####[facility] [id number] [place] [id number] [place] HIGH SENSITIVITY TROPONIN T (SECOND)on 01-29-2023 HIGH SENSITIVITY SHEBA <6 Normal <12 [facility] Comment on above: Order Comment: Cristela ness Type: BLOOD SPECIMEN [facility] Address: [place] [address] Result Comment: When assessing risk for acute [...] 30 day MACE. Performed By: #### L [id number] #### [facility] CLIA [id number] [place] [address] [place] Magnesium SerPl-mCncon 01-29 Magnesium [Mass/Vol] 1.9 mg/dL Normal 1.7-2.3 [facility] Comment on above: Order Comment: Cristela ness Type: BLOOD SPECIMENOrdering Facility: [facility] Address: [place] [address] Performed By: #### 1 9123-9, [id number], 72398-2 ####[facility] [id number] [place] [address] [place] No Panel Informationon 01-29 IMPRESSION: Mild acromioclavicular degenerative changes. Campus Wellness Coordinator: YAIMA Transcribe Date/Time: Jan 29 2023 2:37P Dictated by : BROOK NELSON MD This examination was interpreted and the report reviewed and electronically signed by: BROOK NELSON MD on Guillermo 3 2023 2:38PM EST DIVISION OF RADIOLOGY Radiology Study observation (narrative) [facility] No Panel InformationOrdered By: Ccf Provider on 01-29-2023 [facility] XR CHEST 2V FRONTAL/LATon XR [...] tissues: Unremarkable. IMPRESSION: No acute radiographic abnormality. Campus Wellness Coordinator: PSCB Transcribe Date/Time: Jan 29 2023 1:19P Dictated by : DEVEN CHAPMAN MD This examination was interpreted and the report reviewed and electronically signed by: DEVEN CHAPMAN MD on Jan 29 2023 1:20PM EST [id number] [facility] XR SHLDR >/=3V AP/ALESSANDRO AP/OTH R LTon [...] >/=3V AP/ALESSANDRO AP/OTHR LT Laterality: RIGHT (accession [id number]), LEFT (accession [id number]) Number of different views (projections): 3 M: XB_1 COMPARISON: RESULT: Mild acromioclavicular degenerative changes bilaterally. Maintained glenohumeral joints bilaterally. Imaged lungs appear to be clear. No acute fracture or dislocation. There are no bony erosions. IMPRESSION: Mild acromioclavicular degenerative changes. Campus Wellness Coordinator: [facility] Transcribe Date/Time: Jan 29 2023 2:37P Dictated by : BROOK NELSON MD This examination was interpreted and the report reviewed and electronically signed by: BROOK NELSON MD on Jan 29 2023 2:38PM EST [id number] Normal [facility] XR SHLDR >/=3V AP/ALESSANDRO AP/OTH R [...] >/=3V AP/ALESSANDRO AP/OTHR LT Laterality: RIGHT (accession [id number]), LEFT (accession [id number]) Number of different views (projections): 3 M: XB_1 COMPARISON: RESULT: Mild acromioclavicular degenerative changes bilaterally. Maintained glenohumeral joints bilaterally. Imaged lungs appear to be clear. No acute fracture or dislocation. There are no bony erosions. IMPRESSION: Mild acromioclavicular degenerative changes. Campus Wellness Coordinator: [facility] Transcribe Date/Time: Jan 29 2023 2:37P Dictated by : BROOK NELSON MD This examination was interpreted and the report reviewed and electronically signed by: BROOK NELSON MD on Jan 29 2023 2:38PM EST [id number] Normal [facility] XR Shoulder - left 3 Viewson [...] >/=3V AP/ALESSANDRO AP/OTHR LT Laterality: RIGHT (accession [id number]), LEFT (accession [id number]) Number of different views (projections): 3 M: [...] >/=3V AP/ALESSANDRO AP/OTHR LT Laterality: RIGHT (accession [id number]), LEFT (accession [id number]) Number of different views (projections): 3 M: XB_1 COMPARISON: RESULT: Mild acromioclavicular degenerative changes bilaterally. Maintained glenohumeral joints bilaterally. Imaged lungs appear to be clear. No acute fracture or dislocation. There are no bony erosions. IMPRESSION IMPRESSION: Mild acromioclavicular degenerative changes. Campus Wellness Coordinator: PSCB Transcribe Date/Time: Jan 29 2023 2:37P Dictated by : BROOK NELSON MD This examination was interpreted and the report reviewed and electronically signed by: BROOK NELSON MD on Jan 29 2023 2:38PM EST [facility] XR Shoulder - right 3 [...] >/=3V AP/ALESSANDRO AP/OTHR LT Laterality: RIGHT (accession [id number]), LEFT (accession [id number]) Number of different views (projections): 3 M: [...] >/=3V AP/ALESSANDRO AP/OTHR LT Laterality: RIGHT (accession [id number]), LEFT (accession [id number]) Number of different views (projections): 3 M: XB_1 COMPARISON: RESULT: Mild acromioclavicular degenerative changes bilaterally. Maintained glenohumeral joints bilaterally. Imaged lungs appear to be clear. No acute fracture or dislocation. There are no bony erosions. IMPRESSION IMPRESSION: Mild acromioclavicular degenerative changes. Campus Wellness Coordinator: PSCB Transcribe Date/Time: Jan 29 2023 2:37P Dictated by : BROOK NELSON MD This examination was interpreted and the report reviewed and electronically signed by: BROOK NELSON MD on Jan 29 2023 2:38PM EST [facility] UA DIP, URINE (POC)on 2022 BILIRUBIN UA (POCT) Negative Negative [facility] CLARITY UA (POCT) [facility] COLOR UA (POCT) Yellow [facility] GLUCOSE UA (POCT) Negative Negative mg/dL [facility] HEMOGLOBIN/BLOOD UA (POCT) Negative Negative [facility] KETONE UA (POCT) Negative Negative mg/dL [facility] LEUKOCYTES UA (POCT) Negative Negative [facility] NITRITE UA (POCT) Negative Negative [facility] PH UA (POCT) 5.5 4.5 - 8.0 [facility] Protein Ql (U) Negative Negative mg/dL [facility] SPECIFIC GRAVITY UA (POCT) >=1.030 1.005 - 1.030 [facility] UROBILINOGEN UA (POCT) 0.2 E.U./dL Skyla l E.U./dL [facility] Provider Note - ED v3on [...] by speech recognition technology. Minor errors in tooth polisher may be present. HISTORY OF PRESENTING ILLNESS [...] Review Statu (more content not included)... Normal [facility] Triage - EDon 2022 Triage - ED Chart Review: ARRIVAL INFORMATION Mode of Arrival: ambulance Agency Name: [place] CHIEF COMPLAINT GABRIELA VIDAL is a Male [...] 11-Dec-2022 21:00 by Dina Wood (RN PRN) [facility] ED NOTEon 01-03-2022 ED NOTE HNO ID: [id number] Author: Darcie Gary RN Service: Nursing Author [...] Pt ambulated off ED in no distress. [facility] ED NOTE HNO ID: [id number] Author: Nuvia George RN Service: ? Author Type: Registered Nurse Type: ED Notes Filed: 01/03/2022 11:51 AM Note Text: Pt presents to the ED with CC of a known dental infection for the past 2 years that has turned into an abscess, pt went to [place] yesterday where they attempted to drain the abscess and started him on oral antibiotics, pt now reports swelling is worse and to the point of his eye swelling shut [facility] ED PROV NOTEon 01-03-2022 ED PROV NOTE HNO ID: [id number] Author: Aysha Poole MD Service: ? Author [...] swelling 2 days ago. He went to [place] emergency department was placed on amoxicillin. He [...] (more content not included)... Normal [facility] XR SHOULDER 2V AP/TRUE AP [...] otherwise maintained. No acute fracture or dislocation. Campus Wellness Coordinator: YAIMA Transcribe Date/Time: Sep 09 2020 9:58A Dictated by : XAVI OLIVER MD This examination was interpreted and the report reviewed and electronically signed by: XAVI OLIVER MD on Sep 09 2020 10:09AM EST Normal [facility] CT CHEST WO IVCONon 08-02-19 CT CHEST WO IVCON Final Report DATE OF EXAM: Aug 02 2020 5:04PM [facility] 0541 - CT CHEST WO IVCON [...] abnormality identified in the imaged upper abdomen. Frame Catcher (topogram) images: No additional findings. IMPRESSION: Interval resolution of right lower lobe consolidation/pneumonia . No acute findings in the chest. Campus Wellness Coordinator: YAIMA Transcribe Date/Time: Aug 02 2020 6:06P Dictated by : LACI MENDOZA MD This examination was interpreted and the report reviewed and electronically signed by: LACI MENDOZA MD on Aug 02 2020 6:17PM EST Normal [facility] XR CHEST 2V FRONTAL/LATon XR [...] to ensure resolution and exclude a neoplasm. Campus Wellness Coordinator: YAIMA Transcribe Date/Time: May 17 2020 5:34P Dictated by : JUAN AYERS MD This examination was interpreted and the report reviewed and electronically signed by: JUAN AYERS MD on May 17 2020 5:35PM EST Normal [facility] T. Vaginalis Amplificationon 02-10-2020 T. Vaginalis Amplification SEE BELOW Normal [facility] Comment on above: Result Comment: Tric h vag Amp Source Urine Corrected on 02/08 AT 1722: Previously reported as URINE T vag Amplification SEE BELOW Negative for Trichomonas vaginalis by amplification This test was developed and its performance characteristics determined by [facility]'s Gabriela Esteban [facility] Pathology and Laboratory Medicine [place] ( [facility]). It has not been cleared or approved by the FDA. [facility] is regulated under CLIA as qualified to perform high complexity testing. This test is used for clinical purposes. It should not be regarded as investigational or for research. Performing Laboratory: [facility] [address] [place] [address] Performed By: #### T RVAX #### [facility] [address] [place], [place] [address] GC/Chlam Urine Ampon 020 CT Amplification, Ur CT neg Normal [facility] Comment on above: Result Comment: Nega tive for Chlamydia trachomatis by amplification. Performed By: #### G CTUP #### [facility] [address] [place], [place] [address] GC Amplification, Ur GC neg Normal [facility] Comment on above: Result Comment: Nega tive for Neisseria gonorrhoeae by amplification. Performed By: #### G CTUP #### [facility] [address] [place], [place] [address] GC/Chlam Urine Ampon 020 GC/Chlam Urine Amp Source Urine Normal [facility] Comment on above: Performed By: #### G CTUP #### [facility] [address] [place], [place] [address] XR LUMBAR 3V AP/LAT/L5-S1on 02-02-2020 XR LUMBAR [...] are seen. IMPRESSION: No acute traumatic abnormality Campus Wellness Coordinator: YAIMA Transcribe Date/Time: Feb 02 2020 1:49P Dictated by : LINDA RAMÍREZ MD This examination was interpreted and the report reviewed and electronically signed by: LINDA RAMÍREZ MD on Feb 02 2020 1:54PM EST Normal [facility] Chlamydia and GC PCR Panelon [...] as suspected child abuse or molestation. Normal [facility] Comment on above: Order Comment: Speci men Source Comment:Urine voided Performed By: #### C TNGP ####[facility] [address] [place] [address] CR Abdomen Series w/ Chest 1 Viewon 02-08-2018 CR Abdomen Series w/ Chest 1 View Patient Name: GABRIELA VIDAL Jr Diagnostic Radiology Exam Date/Time 02/08/2018 11:55:40 EDT Exam CR Abdomen Series w/ Chest 1 View Ordering Physician DO GONCALVES KIMBERLY D. Accession Number [id number] CPT4 Codes 58329 () Reason For Exam abdominal pain and [...] Transcribed Date and Time: 02/08/2018 1:03 Normal [facility] Comp Metabolic Panelon 02-08 Calcium 9.2 mg/dL Normal 8.4-10.4 [facility] Comment on above: Performed By: #### H YOLANDA CMP3 ####[address] [place] [address] Alanine aminotransferase (ALT) 19 U/L Normal 13-69 [facility] Comment on above: Performed By: #### H YOLANDA CMP3 ####[address] [place] [address] Alkaline phosphatase (ALP) 45 U/L Normal 38-126 [facility] Comment on above: Performed By: #### H YOLANDA CMP3 ####[address] [place] [address] Anion gap 9 Normal [facility] Comment on above: Performed By: #### H YOLANDA CMP3 ####[address] [place] [address] Aspartate aminotransferase (AST) 22 U/L Normal 15-46 [facility] Comment on above: Performed By: #### H YOLANDA CMP3 ####[address] [place] [address] Bilirubin (total) 0.5 mg/dL Normal 0.2-1.3 [facility] Comment on above: Performed By: #### H YOLANDA CMP3 ####[address] [place] [address] CO2 28 mmol/L Normal 22-30 [facility] Comment on above: Performed By: #### H YOLANDA CMP3 ####[address] [place] [address] Creatinine 1.19 mg/dL Normal 0.52-1.25 [facility] Comment on above: Performed By: #### H YOLANDA CMP3 ####[place] [id number] [place] [address] eGFR (black) mL/min/{1.73_m2} Normal >60 [facility] Comment on above: Performed By: #### H YOLANDA CMP3 ####[place] [id number] [place] [address] eGFR (non-black) mL/min/{1.73_m2} Normal >60 [facility] Comment on above: Result Comment: Sour ce- MDRD equation with creatinine calibration to IDMS(NKDEP) eGFR not recommended for drug dose adjustment Performed By: #### H YOLANDA CMP3 ####[address] [place] [address] Glucose mass conc 98 mg/dL Normal 70-100 [facility] Comment on above: Performed By: #### H YOLANDA CMP3 ####[address] [place] [address] Protein 6.9 g/dL Normal 6.3-8.2 [facility] Comment on above: Performed By: #### H YOLANDA CMP3 ####[place] [address] [place] [address] Urea nitrogen 10 mg/dL Normal 7-20 [facility] Comment on above: Performed By: #### H YOLANDA CMP3 ####[address] [place] [address] Potassium molar conc 4.2 mmol/L Normal 3.5-5.1 [facility] Comment on above: Performed By: #### H YOLANDA CMP3 ####[place] [id number] [place] [address] Albumin 4.2 g/dL Normal 3.5-5.0 [facility] Comment on above: Performed By: #### H YOLANDA CMP3 ####[address] [place] [address] Chloride 106 mmol/L Normal 98-107 [facility] Comment on above: Performed By: #### H YOLANDA CMP3 ####[address] [address] Sodium 144 mmol/L Normal 137-145 [facility] Comment on above: Performed By: #### H YOLANDA CMP3 ####[address] [address] Hemogram w/ Autodiffon 02-08 Abs Baso Cnt 0.0 10*3/uL Normal 0.0-0.2 [facility] Comment on above: Performed By: #### H YOLANDA CMP3 ####[address] [address] Abs Neutrophile Cnt 4.4 10*3/uL Normal 1.8-7.0 [facility] Comment on above: Performed By: #### H YOLANDA CMP3 ####[address] [address] Basophils/100 WBC Auto (Bld) 0.5 % Normal 0.0-2.0 [facility] Comment on above: Performed By: #### H YOLANDA CMP3 ####[address] [address] Eosinophils 0.2 10*3/uL Normal 0.0-0.5 [facility] Comment on above: Performed By: #### H YOLANDA CMP3 ####[address] [address] Eosinophils/100 leukocytes 2.5 % Normal 1.0-6.0 [facility] Comment on above: Performed By: #### H YOLANDA CMP3 ####[address] [address] Erythrocyte distribution width Auto Ratio (RBC) 13.0 % Normal 11.5-14.5 [facility] Comment on above: Performed By: #### H YOLANDA CMP3 ####[address] [address] Erythrocytes (RBC) 5.31 10*6/uL Normal 4.40-5.90 [facility] Comment on above: Performed By: #### H YOLANDA CMP3 ####[address] [address] Granulocytes/100 WBC (Bld) 54.6 % Normal 40.0-80.0 [facility] Comment on above: Performed By: #### H YOLANDA CMP3 ####[place] [id number] [place] [address] Hematocrit (HCT) 48.8 % Normal 40.0-52.0 [facility] Comment on above: Performed By: #### H EMDHafsa CMP3 ####[place] [id number] [facility] [place] [address] Hemoglobin mass conc (Bld) 16.7 g/dL Normal 13.0-18.0 [facility] Comment on above: Performed By: #### H YOLANDA CMP3 ####[place] [id number] [place] [address] Lymphocytes 2.6 10*3/uL Normal 1.0-4.3 [facility] Comment on above: Performed By: #### H EMDHafsa CMP3 ####[address] [place] [address] Lymphocytes/100 leukocytes 32.5 % Normal 20.0-40.0 [facility] Comment on above: Performed By: #### H YOLANDA CMP3 ####[address] [place] [address] MCH 31.4 pg Normal 26.0-34.0 [facility] Comment on above: Performed By: #### H EMDHafsa CMP3 ####[address] [place] [address] MCHC mass conc (RBC) 34.2 % Normal 32.0-36.0 [facility] Comment on above: Performed By: #### H YOLANDA CMP3 ####[address] [facility] [place] [address] MCV 91.8 fL Normal 80.0-98.0 [facility] Comment on above: Performed By: #### H EMDHafsa CMP3 ####[place] [id number] [facility] [place] [address] Monocytes 0.8 10*3/uL Normal 0.0-0.8 [facility] Comment on above: Performed By: #### H YOLANDA CMP3 ####[place] [id number] [facility] [place] [address] Monocytes/100 leukocytes 9.9 % Normal 2.0-10.0 [facility] Comment on above: Performed By: #### H YOLANDA CMP3 ####[place] [id number] [place] [address] Platelet mean volume (PMV) 10.2 fL Normal 7.4-10.4 [facility] Comment on above: Performed By: #### H YOLANDA CMP3 ####[place] [id number] [place] [address] Platelets 195 10*3/uL Normal 140-440 [facility] Comment on above: Performed By: #### H YOLANDA CMP3 ####[place] [id number] [place] [address] WBC (Leukocytes) 8.0 10*3/uL Normal 3.6-10.7 [facility] Comment on above: Performed By: #### H YOLANDA CMP3 ####[address] [place] [address] Urinalysis,Macroon 8 Appearance Clear Normal Clear [facility] Comment on above: Performed By: #### U AMAC, UAMIC ####[address] [place] [address] Bilirubin,Ur 1 + Normal Negative [facility] Comment on above: Performed By: #### U AMAC, UAMIC ####[address] [place] [address] Color Yellow Normal Lt. Yellow [facility] Comment on above: Performed By: #### U AMAC, UAMIC ####[place] [id number] [place] [address] Ketone,Urine Negative Normal Negative [facility] Comment on above: Performed By: #### U AMAC, UAMIC ####[place] [id number] [place] [address] Leukocytes Negative Normal Negative [facility] Comment on above: Performed By: #### U AMAC, UAMIC ####[address] [place] [address] Nitrites Negative Normal Negative [facility] Comment on above: Performed By: #### U AMAC, UAMIC ####[address] [place] [address] Occult Blood,Ur Negative Normal Negative [facility] Comment on above: Performed By: #### U AMAC, UAMIC ####[place] [id number] [place] [address] Specific [place],Urine 1.020 Normal 1.005-1.030 [facility] Comment on above: Performed By: #### U AMAC, UAMIC ####[address] [place] [address] Total Protein,Urine Negative Normal Negative [facility] Comment on above: Performed By: #### U AMAC, UAMIC ####[address] [place] [address] Urine, glucose presence NEG (Normal) Normal Negative [facility] Comment on above: Performed By: #### U AMAC, UAMIC ####[address] [place] [address] Urine, pH 6.5 Normal 5.0-8.0 [facility] Comment on above: Performed By: #### U AMAC, UAMIC ####[address] [place] [address] Urobilinogen Normal (0.2) Normal 0-1 [facility] Comment on above: Performed By: #### U AMAC, UAMIC ####[address] [place] [address] Urinalysis,Microscopicon Amorphous Urates Moderate (6-50) Normal Negative [facility] Comment on above: Performed By: #### U AMAC, UAMIC ####[address] [place] [address] Bacteria Few (1-5) Normal Negative [facility] Comment on above: Performed By: #### U AMAC, UAMIC ####[address] [place] [address] Ca Oxylate Crystals Few (1-5) Normal Negative [facility] Comment on above: Performed By: #### U AMAC, UAMIC ####[address] [place] [address] Epithelial Cells Negative Normal 3-5 [facility] Comment on above: Performed By: #### U AMAC, UAMIC ####[facility] [address] [place] [address] Urine, erythrocytes in sediment by area Negative Normal 0-2 [facility] Comment on above: Performed By: #### U AMAC, UAMIC ####[facility] [facility] [id number] [place] [address] Urine, leukocytes in sedmiment 0 - 2 Normal 0-5 [facility] [employer] Comment on above: Performed By: #### U AMAC, UAMIC ####[facility] [id number] [place] [address] Volume,Urine 12 ml Normal [facility] Comment on above: Performed By: #### U AMAC, UAMIC ####[facility] [id number] [place] [address] Vital Signs Date Time Vital Sign Value Performing Clinician Facility 01-21-2025 21:53-0400 Body temperature 100 [degF] Shania Queden BUG TRIMMER-C Work Phone: [facility] 01-21-2025 21:53-0400 Diastolic blood pressure 83 mm[Hg] Shania Queden BUG TRIMMER-C Work Phone: [facility] 01-21-2025 21:53-0400 Heart rate 118 /min Shania Queden BUG TRIMMER-C Work Phone: [facility] 01-21-2025 21:53-0400 Respiratory rate 18 /min Shania Queden BUG TRIMMER-C Work Phone: [facility] 01-21-2025 21:53-0400 SaO2% (BldA) [Mass fraction] 100 % Shania Queden BUG TRIMMER-C Work Phone: [facility] 01-21-2025 21:53-0400 Systolic blood pressure 130 mm[Hg] Shania Queden BUG TRIMMER-C Work Phone: [facility] 01-21-2025 16:05-0400 Body height 175.26 cm Shania Queden BUG TRIMMER-C Work Phone: [facility] 01-21-2025 16:05-0400 Body mass index (BMI) [Ratio] 27 kg/m2 Shania Queden BUG TRIMMER-C Work Phone: [facility] 01-21-2025 16:05-0400 Body weight 83 kg Shania Queden BUG TRIMMER-C Work Phone: [facility] 01-07-2025 09:57-0400 Body temperature 97.3 [degF] Shania Queden BUG TRIMMER-C Work Phone: [facility] 01-07-2025 09:57-0400 Diastolic blood pressure 99 mm[Hg] Shania Queden BUG TRIMMER-C Work Phone: [facility] 01-07-2025 09:57-0400 Heart rate 90 /min Shania Queden BUG TRIMMER-C Work Phone: [facility] 01-07-2025 09:57-0400 Respiratory rate 16 /min Shania Queden BUG TRIMMER-C Work Phone: [facility] 01-07-2025 09:57-0400 SaO2% (BldA) [Mass fraction] 99 % Shania Queden BUG TRIMMER-C Work Phone: [facility] 01-07-2025 09:57-0400 Systolic blood pressure 101 mm[Hg] Shania Queden BUG TRIMMER-C Work Phone: [facility] 01-07-2025 08:42-0400 Body height 175.26 cm Shania Queden BUG TRIMMER-C Work Phone: [facility] 01-07-2025 08:42-0400 Body mass index (BMI) [Ratio] 27.1 kg/m2 Shania Queden BUG TRIMMER-C Work Phone: [facility] 01-07-2025 08:42-0400 Body weight 83.41 kg Shania Queden BUG TRIMMER-C Work Phone: [facility] 01-15-2024 14:37-0400 Body height 177.8 cm Shania Queden SUPERVISOR [employer].ENGINEERING AND DEVELOPMENT DIRECTOR Work Phone: [facility] 01-15-2024 14:37-0400 Body mass index (BMI) [Ratio] 24.54 kg/m2 Shania Queden SUPERVISOR [employer].ENGINEERING AND DEVELOPMENT DIRECTOR Work Phone: [facility] 01-15-2024 14:37-0400 Body temperature 97.9 [degF] Shania Queden SUPERVISOR [employer].ENGINEERING AND DEVELOPMENT DIRECTOR Work Phone: [facility] 01-15-2024 14:37-0400 Body weight 77.56 kg Shania Queden SUPERVISOR [employer]SEM[employer].ENGINEERING AND DEVELOPMENT DIRECTOR Work Phone: [facility] 01-15-2024 14:37-0400 Diastolic blood pressure 62 mm[Hg] Shania Queden SUPERVISOR [employer]SEM[employer].ENGINEERING AND DEVELOPMENT DIRECTOR Work Phone: [facility] 01-15-2024 14:37-0400 Heart rate 98 /min Shania Queden SUPERVISOR [employer]SEM[employer].ENGINEERING AND DEVELOPMENT DIRECTOR Work Phone: [facility] 01-15-2024 14:37-0400 Respiratory rate 18 /min Shania Queden SUPERVISOR [employer]SEM[employer].ENGINEERING AND DEVELOPMENT DIRECTOR Work Phone: [facility] 01-15-2024 14:37-0400 SaO2% (BldA) [Mass fraction] 99 % Shania Queden SUPERVISOR [employer].ENGINEERING AND DEVELOPMENT DIRECTOR Work Phone: [facility] 01-15-2024 14:37-0400 Systolic blood pressure 122 mm[Hg] Shania Queden SUPERVISOR [employer]SEM[employer].ENGINEERING AND DEVELOPMENT DIRECTOR Work Phone: [facility] 09-29-2023 06:49-0500 Body temperature 97.8 [degF] [facility] 09-29-2023 06:49-0500 Diastolic blood pressure 72 mm[Hg] [facility] 09-29-2023 06:49-0500 Heart rate 71 /min [facility] 09-29-2023 06:49-0500 Respiratory rate 16 /min [facility] 09-29-2023 06:49-0500 SaO2% (BldA) [Mass fraction] 98 % [facility] 09-29-2023 06:49-0500 Systolic blood pressure 122 mm[Hg] [facility] 09-28-2023 17:12-0500 Body height 177.8 cm [facility] 09-28-2023 17:12-0500 Body mass index (BMI) [Ratio] 26.5 kg/m2 [facility] 09-28-2023 17:12-0500 Body weight 83.91 kg [facility] 04-09-2023 10:29-0400 Body height 177.8 cm Gilda Zavala APRN.ENGINEERING AND DEVELOPMENT DIRECTOR Work Phone: [facility] 04-09-2023 10:29-0400 Body temperature 97.81 [degF] Gilda Zavala SUPERVISOR [employer]SEM[employer].ENGINEERING AND DEVELOPMENT DIRECTOR Work Phone: [facility] 04-09-2023 10:29-0400 Body weight 82.1 kg Gilda Zavala APRN.ENGINEERING AND DEVELOPMENT DIRECTOR Work Phone: [facility] 04-09-2023 10:29-0400 Diastolic blood pressure 76 mm[Hg] Gilda Zavala APRN.ENGINEERING AND DEVELOPMENT DIRECTOR Work Phone: [facility] 04-09-2023 10:29-0400 Heart rate 92 /min Gilda Zavala APRN.ENGINEERING AND DEVELOPMENT DIRECTOR Work Phone: [facility] 04-09-2023 10:29-0400 SaO2% (BldA) [Mass fraction] 93 % Gilda Zavala APRN.ENGINEERING AND DEVELOPMENT DIRECTOR Work Phone: [facility] 04-09-2023 10:29-0400 Systolic blood pressure 120 mm[Hg] Gilda Zavala APRN.ENGINEERING AND DEVELOPMENT DIRECTOR Work Phone: [facility] 12-29-2022 16:55-0400 Body height 177.8 cm Shania Vieira SUPERVISOR [employer]ASS[employer]SEM[employer].ENGINEERING AND DEVELOPMENT DIRECTOR Work Phone: [facility] 12-29-2022 16:55-0400 Body temperature 97.9 [degF] Shania Vieira SUPERVISOR [employer].ENGINEERING AND DEVELOPMENT DIRECTOR Work Phone: [facility] 12-29-2022 16:55-0400 Body weight 79.83 kg Shania Vieira SUPERVISOR [employer]ASS[employer]SEM[employer].ENGINEERING AND DEVELOPMENT DIRECTOR Work Phone: [facility] 12-29-2022 16:55-0400 Diastolic blood pressure 74 mm[Hg] Shania Butlerden SUPERVISOR [employer]SEM[employer].ENGINEERING AND DEVELOPMENT DIRECTOR Work Phone: [facility] 12-29-2022 16:55-0400 Heart rate 91 /min Shania Queden SUPERVISOR [employer].ENGINEERING AND DEVELOPMENT DIRECTOR Work Phone: [facility] 12-29-2022 16:55-0400 SaO2% (BldA) [Mass fraction] 97 % Shania Queden SUPERVISOR [employer]ASS[employer]SEM[employer].ENGINEERING AND DEVELOPMENT DIRECTOR Work Phone: [facility] 12-29-2022 16:55-0400 Systolic blood pressure 120 mm[Hg] Shania Butlerden SUPERVISOR [employer]ASS[employer]SEMBL[employer].ENGINEERING AND DEVELOPMENT DIRECTOR Work Phone: [facility] 12-12-2022 00:10-0400 Diastolic blood pressure 77 mm[Hg] No Pcp Required [facility] Other Phone (unformatted): [phone] 12-12-2022 00:10-0400 Heart rate 96 /min No Pcp Required [facility] Other Phone (unformatted): [phone] 12-12-2022 00:10-0400 Respiratory rate 18 /min No Pcp Required [facility] Other Phone (unformatted): [phone] 12-12-2022 00:10-0400 SaO2% (BldA) [Mass fraction] 100 % No Pcp Required [facility] Other Phone (unformatted): [phone] 12-12-2022 00:10-0400 Systolic blood pressure 113 mm[Hg] No Pcp Required [facility] Other Phone (unformatted): [phone] 2022 22:57-0400 Body height 180.3 cm No Pcp Required [facility] Other Phone (unformatted): [phone] 2022 22:57-0400 Body temperature 96.8 [degF] No [facility] Other Phone (unformatted): [phone] 2022 22:57-0400 Body weight 84 kg No Pcp Required [facility] Other Phone (unformatted): [phone] 05-18-2019 15:46-0400 BMI (Body Mass Index) 26.54 kg/m2 [facility] [place] [place] 05-18-2019 15:46-0400 Body Temperature 98.6 [degF] [place], [place] 05-18-2019 15:46-0400 Body weight 83.92 kg [place], [place] 05-18-2019 15:46-0400 BP Diastolic 79 mm[Hg] [place] 05-18-2019 15:46-0400 BP Systolic 118 mm[Hg] [place], [place] 05-18-2019 15:46-0400 Pulse (Heart Rate) 94 /min [place], [place] 05-18-2019 15:46-0400 Pulse Oximetry 99 % [place], [place] 05-18-2019 15:46-0400 Respiratory Rate 20 /min [place] Encounters Encounter Date Encounter Type Care Provider Facility Start: 01-21-2025 Evaluation and manag ement of inpatient Dr. Zechariah Bruno MD -Medical Surgical 3 Work Phone: Start: 01-12-2025 End: 01-12-2025 ambulatory Shania Vieira APRN.CNP Work Phone: [facility] Start: 01-12-2025 End: 01-12-2025 Follow-up encounter Shania Vieira APRN.ENGINEERING AND DEVELOPMENT DIRECTOR Work Phone: [facility] Comment on above: ED Follow-up ([facility] ED 01/07/2025) Start: 01-07-2025 End: 01-07-2025 Emergency department patient visit Shania Vieira BUG TRIMMER-C Work Phone: -Emergency Department Work Phone: Start: 04-21-2024 End: 04-23-2024 Patient Outreach Estephania Lemos [facility] Comment on above: Transition Of Care ( Pt was admitted to [facility] on 04/18/2024 for ISABELLA, COVID-19. Pt was d/c on 04/19/2024) Start: 04-18-2024 ambulatory Shaniaklaus Vieira BUG TRIMMER Facil ity:[facility] Start: 04-18-2024 End: 04-19-2024 Evaluation and management of inpatient Shania Vieira BUG TRIMMER Facility:[facility] Start: 04-17-2024 End: 04-17-2024 Emergency department patient visit Shania Vieira BUG TRIMMER Facility:[facility] Start: 01-28-2024 Telephone encounter Shania Vieira SUPERVISOR [employer].ENGINEERING AND DEVELOPMENT DIRECTOR Work Phone: [facility] Comment on above: Consult Start: 01-15-2024 End: 01-15-2024 Patient encounter procedure Shania Vieira SUPERVISOR [employer].ENGINEERING AND DEVELOPMENT DIRECTOR Work Phone: [facility] Comment on above: Schizoaffective diso rder, unspecified type (HCC) (Primary Dx); Adult ADHD; Auditory hallucinations; Acute psychosis (HCC); Marijuana use; Financial difficulties; Acute pain of left shoulder; Living in temporary quarters Start: 12-21-2023 Telephone encounter Shania A Isha SUPERVISOR [employer]SEMBL[employer].ENGINEERING AND DEVELOPMENT DIRECTOR Work Phone: [facility] Comment on above: Appointment Start: 12-17-2023 ambulatory Estephania [facility] LPN [facility] Start: 10-02-2023 ambulatory Humera Gillis MA [facility] Comment on above: ed outreach (Ed outr each/09/28/2023/[facility] ) Start: 09-28-2023 End: 09-29-2023 Emergency department patient visit [facility]-Emergency Department Work Phone: Start: 07-03-2023 ambulatory Shania Butlerd en SUPERVISOR [employer]ASS[employer]SEMBLY.ENGINEERING AND DEVELOPMENT DIRECTOR Work Phone: [facility] Comment on above: ED Outreach ([place] [facility] 07/01/23) Start: 05-17-2023 ambulatory Shanae Bustamante MA [facility] Start: 04-11-2023 ambulatory Humera Gillis MA [facility] Comment on above: ED outreach (ED outr each /[place] /04/07/2023 ) Start: 04-09-2023 End: 04-09-2023 Patient encounter procedure Gilda Zavala SUPERVISOR [employer]SEMBL[employer].ENGINEERING AND DEVELOPMENT DIRECTOR Work Phone: [facility] Comment on above: Cellulitis of right lower leg (Primary Dx); Itching Start: 01-29-2023 End: 01-29-2023 Emergency department patient visit SHANIAKLAUS BUTLERJOSHUA Facility:[facility] Start: 01-29-2023 End: 01-29-2023 ambulatory SHANIA VIEIRA Facility:[facility] Start: 01-29-2023 End: 01-29-2023 Subsequent hospital visit by physician [facility] Comment on above: Pain [R52] Start: 01-18-2023 Orders Only Humera Hernandez bobby SUPERVISOR [employer]SEM[employer].ENGINEERING AND DEVELOPMENT DIRECTOR Work Phone: [facility] Comment on above: Pain (Primary Dx) Start: 01-01-2023 Telephone encounter Shania Vieira SUPERVISOR [employer]ASS[employer]SEMBL[employer].ENGINEERING AND DEVELOPMENT DIRECTOR Work Phone: [facility] Comment on above: Results Start: 12-29-2022 End: 12-29-2022 Patient encounter procedure Shania Macie Isha SUPERVISOR [employer].ENGINEERING AND DEVELOPMENT DIRECTOR Work Phone: [facility] Comment on above: Dysuria (Primary Dx) ; Exposure to STD Start: 2022 End: 12-12-2022 Emergency department patient visit Damion Perdue [facility] Other Phone (unformatted): [phone] Start: 08-24-2022 ambulatory Shania Quijano Qued en SUPERVISOR [employer]SEM[employer].ENGINEERING AND DEVELOPMENT DIRECTOR Work Phone: [facility] Start: 08-24-2022 Follow-up encounter Shania Vieira SUPERVISOR [employer]ASS[employer]SEMBLY.ENGINEERING AND DEVELOPMENT DIRECTOR Work Phone: [facility] Comment on above: ED Follow Up ([place] [facility] discharge 08/21/2022 ED outreach ) Start: 01-06-2022 ambulatory Shania Quijano Qued en SUPERVISOR [employer].ENGINEERING AND DEVELOPMENT DIRECTOR Work Phone: [facility] Start: 05-18-2019 End: 05-18-2019 Emergency department patient visit [facility] Comment on above: Encounter for wound re-check (Primary Dx) Start: 02-08-2018 Emergency department patient visit Torrie Goncalves [facility] Procedures Date Procedure Procedure Detail Performing Clinician Start: 01-21-2025 Computed tomography of abdomen and pelvis with intravenous contrast Shania Vieira BUG TRIMMER-C Work Phone: Start: 01-21-2025 Estimated creatinine clearance Shania Vieira BUG TRIMMER-C Work Phone: Start: 01-21-2025 Urnls dip stick/tabl et reagent auto microscopy Shania Vieira BUG TRIMMER-C Work Phone: Start: 09-28-2023 Coronavirus COVID-19 PCR Start: 01-29-2023 Radex shoulder compl ete minimum 2 views Humera Martinez Meredith SUPERVISOR [employer].ENGINEERING AND DEVELOPMENT DIRECTOR Work Phone: Start: 12-29-2022 Urnls dip stick/tabl et rgnt auto w/o microscopy Shania Vieira SUPERVISOR [employer].ENGINEERING AND DEVELOPMENT DIRECTOR Work Phone: Start: 08-24-2020 Adult depression scr eening assessment Shania Vieira SUPERVISOR [employer]SEM[employer].ENGINEERING AND DEVELOPMENT DIRECTOR Work Phone: Plan of Treatment Date Care Activity Detail Author Start: 07-01-2033 Urine microalbumin profile DTaP,Tdap,Td Vaccine (8 - Td or Tdap) [facility] Start: 03-30-2025 Influenza vaccination Influenz a Vaccine (Season Ended) [facility] Start: 01-21-2025 Hospital admission, emergency, from emergency room, medical nature [facility] Start: 01-21-2025 Verification routine [facility] Start: 01-21-2025 Admission procedure [facility] Start: 03-30-2024 Covid-19 Vaccine ( season) Covid-19 Vaccine ( season) [facility] Start: 03-30-2024 Covid-19 Vaccine ( season) Covid-19 Vaccine ( season) [facility] Start: 03-30-2024 Influenza vaccination [facility] Start: 02-20-2024 End: 02-20-2024 Patient encounter procedure 02/20/2024 2:00 PM EDT Office Visit Orthopaedics [address] [place] [address] Gisella De Santiago DO [address] [place] [address] shoulder pain, bycicle incident 01/02/24 [facility] Comment on above: shoulder pain, bycic le incident 01/02/24 [facility] Start: 01-15-2024 End: 01-15-2024 Patient encounter procedure 01/15/2024 2:20 PM EDT Office Visit [facility] [address] [place] [address] Shania Vieira, SUPERVISOR [employer]ASS[employer]SEMBLY.ENGINEERING AND DEVELOPMENT DIRECTOR [address] [place], [place] [id number] [facility] Start: 12-30-2023 COVID-19 VACCINE (#1) COVID-19 VACCI NE (#1) [facility] Comment on above: Postponed from 06/13 (Declined at this time) Start: 12-12-2023 Lipid panel Lipid Screening [facility] Start: 09-29-[address] [facility] Start: 09-28-2023 Suicide precautions [facility] Start: 07-30-2023 Behavioral Health Screening Behavioral Health Screening [facility] Start: 07-30-2023 [facility] Start: 07-29-2023 [facility] Comment on above: Postponed from 07/30 (Declined at this time) Start: 03-30-2023 Covid-19 Vaccine ( season) Covid-19 Vaccine ( season) [facility] Start: 03-30-2023 Influenza vaccination [facility] Start: 12-29-2022 End: 02-28-2023 SYPHILIS TOTAL W/REFLEX SYPHILIS TOTAL W/REFLEX Lab Routine Exposure to STD Expected: 12/29/2022, Expires: 02/28/2023 [facility] Work Phone: Comment on above: Expected: 12/29/2022 , Expires: 02/28/2023 Start: 07-30-2022 DEPRESSION ASSESSMENT DEPRESSION ASS ESSMENT [facility] Start: 03-30-2022 Influenza vaccination [facility] Start: 08-24-2021 Adult depression screening assessment DEPRESSION SCREENING [facility] Start: 11-11-2020 Urine microalbumin profile [facility] Start: 03-30-2019 Influenza vaccination Flu vaccine (# 1) [place], [place] Start: 12-12-2007 Pneumococcal vaccination Pneumococcal Vaccine (1 of 2 - PCV) [facility] Start: 12-12-2007 Urine microalbumin profile DTAP,TDAP,TD (1 - Tdap) [facility] Start: 2006 Anxiety Screening Anxiety Screening [facility] Start: 2006 Depression Screening Depression Scre ening [facility] Start: 2006 HEPATITIS C SCREENING HEPATITIS C [facility] Start: 2006 Hepatitis C screening Hepatitis C [facility] Start: 2006 HIV SCREENING HIV SCREENING [facility] Start: 2006 HIV screening HIV Screening [facility] Start: 1994 PNEUMOCOCCAL (1 - PCV) PNEUMOCOCCAL (1 - PCV) [facility] Start: 1994 Pneumococcal vaccination [facility] Start: 1993 COVID-19 VACCINE (#1) COVID-19 VACCI NE (#1) [facility] Start: 06-13-1989 COVID-19 VACCINE (#1) COVID-19 VACCI NE (#1) [facility] Start: 1988 HEPATITIS B (1 of 3 - 3-dose series) HEPATITIS B (1 of 3 - 3-dose series) [facility] Chlamydia trachomatis+Neisseria gonorrhoeae DNA [Presence] in Urine by CARLOS with probe detection GC/CHLAMYDIA AMPLIF, URINE Microbiology Routine Exposure to STD 12/29/2022 5:06 PM EDT [facility] Work Phone: Patient Education ED Cellulitis [facility] Work Phone: Patient referral [facility] Work Phone: T VAGINALIS AMPLIFICATION T VAGINALIS AMPLIFICATION Lab Routine Exposure to STD 12/29/2022 5:02 PM EDT [facility] Work Phone: UA DIP, URINE (POC) UA DIP, URIN E (POC) Lab Routine Dysuria Ordered: 12/29/2022 [facility] Work Phone: Comment on above: Ordered: 12/29/2022 End: 02-17-2024 XR SHOULDER GENERAL 3V OR MORE AP/TRUE AP/OTHER LEFT XR SHOULDER GENERAL 3V OR MORE AP/TRUE AP/OTHER LEFT Radiology Routine Pain 1 Occurrences starting 01/18/2023 until 02/17/2024 [facility] Work Phone: Comment on above: 1 Occurrences starti ng 01/18/2023 until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 message attempted to reach patient Patient discharged from [facility] ED on 01/03/22. 1. How are you [...] you able to contact the office or refrigeration repair supervisor provider prior to your ED visit? Left message attempted to reach patient 5. Is there anything else I can do for you today? Left message attempted to reach patient Geraldine Landin MA documented [facility] summary Author Stephan Burk [facility] Note Date/Time January 07, 2025 9:45 am [facility] Medical Records Department [address] [place] [address] Emergency Department Summary 01/07/25 MR#: [id number] Acct: [id number] Name: GABRIELA VIDAL Jr. Rep #:[id number] : 1990 34 From: Stephan Burk MD [...] Shania Vieira NP Referrals: Shania Vieira NP, BUG TRIMMER-C [Primary Care Provider] - 3-5 Days if not improving Activity Restrictions/Additional Instructions: Take the antibiotic Augmentin 1 pill twice a day till gone. Motrin for pain and swelling and Tylenol for pain. Ice and elevate. Follow-up or return if getting worse. Are not improving. Print Language: Malaysian Disposition Disposition: Home, Self Care What to do if you have Problems For any increased pain, shortness of breath, bleeding, nausea or vomiting, chestpain, or any unexpected problems, contact your Primary Care Provider. Call [facility] ([phone]) or report to the closest Emergency Room. Call 911 if necessary. 01/07/25 [id number] <Electronically signed by Stephan Burk MD> Cosigner Signature (if applicable): CC: BUG TRIMMERDioni Vieira ~ Signed [facility] Work Phone: Evaluation note* Diagnosis Dysuria- Primary Exposure to STD Contact with or exposure to other communicable diseases documented in this encounter [facility] note* Diagnosis Pain- Primary Generalized pain documented in this encounter [facility] note* Diagnosis Cellulitis of right lower leg- Primary Cellulitis and abscess of leg, except foot Itching Unspecified pruritic disorder documented in this encounter [facility] noteNo assessment information availableWKindred Healthcare Work Phone: Evaluation note* Diagnosis Schizoaffective disorder, unspecified type (HCC)- Primary Adult ADHD Attention deficit disorder with hyperactivity Auditory hallucinations Hallucinations Acute psychosis (HCC) Unspecified psychosis Marijuana use Cannabis abuse, unspecified Financial difficulties Inadequate material resources Acute pain of left shoulder Living in temporary quarters Other specified housing or economic circumstances documented in this encounter [facility] note* Diagnosis Acute pain of left shoulder- Primary Injury of left shoulder, initial encounter documented in this encounter [facility] note* Diagnosis Pain Generalized [facility] Additional Instructions Take the antibiotic Augmentin 1 pill twice a day till gone. Motrin for pain and swelling and Tylenol for pain. Ice and elevate. Follow-up or return if getting worse. Are not improving.[facility] Work Phone: Reason for referral (narrative)* Diagnostic Procedure Only (Routine) - Authorized Specialty Diagnoses / Procedures Referred By Sarahiac julián Referred To Contact XR IMAGING Diagnoses Pain Procedures XR SHOULDER GENERAL 3V OR MORE AP/TRUE AP/OTHER LEFT RADEX SHOULDER COMPLETE MINIMUM 2 VIEWS Humera Harper APRN.CNP [address] [place] [address] Xr Imaging Referral ID Status Reason Start Date Expiration Date Visits Requested Visits Authorized [id number] Authorized Auto-Generat ed Referral 01/18/2023 02/17/2024 1 1 * Diagnostic Procedure Only (Routine) - Authorized Specialty Diagnoses / Procedures Referred By Contac t Referred To Contact XR IMAGING Diagnoses Pain Procedures XR SHOULDER GENERAL 3V OR MORE AP/TRUE AP/OTHER RIGHT RADEX SHOULDER COMPLETE MINIMUM 2 VIEWS Humera Harper APRN.ENGINEERING AND DEVELOPMENT DIRECTOR [address] [place] [address] Xr Imaging Referral ID Status Reason Start Date Expiration Date Visits Requested Visits Authorized [id number] Authorized Auto-Generat ed Referral 01/18/2023 02/17/2024 1 1 [facility] for referral (narrative)* Diagnostic Procedure Only (Routine) - Closed Specialty Diagnoses / Procedures Referred By Contac t Referred To Contact XR IMAGING Diagnoses Pain Procedures XR SHOULDER GENERAL 3V OR MORE AP/TRUE AP/OTHER LEFT RADEX SHOULDER COMPLETE MINIMUM 2 VIEWS Humera Harper APRN.ENGINEERING AND DEVELOPMENT DIRECTOR [address] [place] [id number] [place] [address] Referral ID Status Reason Start Date Expiration Date V isits Requested Visits Authorized [id number] Closed Auto-Generate d Referral 01/18/2023 02/17/2024 1 1 * Diagnostic Procedure Only (Routine) - Closed Specialty Diagnoses / Procedures Referred By Contac t Referred To Contact XR IMAGING Diagnoses Pain Procedures XR SHOULDER GENERAL 3V OR MORE AP/TRUE AP/OTHER RIGHT RADEX SHOULDER COMPLETE MINIMUM 2 VIEWS Humera Harper APRN.ENGINEERING AND DEVELOPMENT DIRECTOR [address] [place] [address] [place] [address] Referral ID Status Reason Start Date Expiration Date V isits Requested Visits Authorized [id number] Closed Auto-Generate d Referral 01/18/2023 02/17/2024 1 1 [facility] for referral (narrative)No reason for referral information availableWKindred Healthcare Work Phone: Summary Purpose Family History Relationship Condition Age at Onset Recorded Date/T geo mother Kidney disorder Unknown father Malignant neoplasm Unknown Advance Directives Documents on File Type Date Recorded 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 No January 07, 2025 8:41am Advance Directive Response Recorded Date/ Time Do you have a Healthcare Power of Guest Relations Agent? No January 07, 2025 8:41am Do you have a Healthcare Power of Guest Relations Agent? No January 21, 2025 5:05pm Discharge Instructions * Attachments The following attachments cannot be sent through Care Everywhere. * Wound Check (Malaysian) documented in this encounter Assessments Diagnosis Encounter [...] quarters Procedures CONSULT TO SOCIAL WORK AG (PATTERN WEAVER) Shania Vieira, SUPERVISOR CHASSIS ASSEMBLY.ENGINEERING AND DEVELOPMENT DIRECTOR [address] [place] [address] Referral ID Status Reason Start Date Expiration Date Visits Requested Visits Authorized [id number] Ref Not Required PCP Requested Referral 01/15/2024 04/14/2024 3 3 Specialty Diagnoses / Procedures Referred By Briana gallego Referred To Contact Orthopedics / [facility] DEPARTMENT Diagnoses Acute pain of left shoulder Injury of left shoulder, initial encounter Procedures CONSULT TO ORTHOPAEDICS OFFICE/OUTPATIENT [facility] 60 MINUTES Shania Vieira APRN.ENGINEERING AND DEVELOPMENT DIRECTOR [address] [place] [address] Angel Vaz MD [address] [address] Referral ID Status Reason Start Date Expiration Date Visits Requested Visits Authorized [id number] Authorized PCP Requested Referral 01/28/2024 01/27/2025 1 1 Additional Source Comments (unrecognized sect ion and content) No Status Records FoundNo Status Records FoundNo Status Records FoundNo Status Records FoundNo Status Records FoundNo Status Records FoundNo Status Records FoundNo Status Records Found INFORMATION SOURCE (unrecogn ized section and content) DATE CREATED AUTHOR 02/09/2018 [facility] DATE CREATED AUTHOR AUTHOR'S ORGANIZ ATION 01/07/2021 [facility] DATE CREATED AUTHOR AUTHOR'S ORGANIZ ATION 01/07/2022 [facility] DATE CREATED AUTHOR AUTHOR'S ORGANIZ ATION 01/30/2023 [facility] DATE CREATED AUTHOR AUTHOR'S ORGANIZ ATION 02/06/2023 [facility] DATE CREATED AUTHOR AUTHOR'S ORGANIZ ATION 06/03/2023 [facility] DATE CREATED AUTHOR AUTHOR'S ORGANIZ ATION 01/09/2025 [facility] DATE CREATED AUTHOR AUTHOR'S ORGANIZ ATION 01/14/2025 [facility] Reason for Visit (unrecogniz ed section and content) Reason Comments Wound Check Reason Onset Date Comments ED Follow Up 08/24/2022 [place] ED discharg e 08/21/2022 ED outreach Reason Comments STD Wants to be checked for STD . GIRL called and said she had gonorrhea and jazmine. Feels tight clamminess per. Pt. And itches. X 1 month Reason Comments Results Reason Onset Date Comments ED outreach 04/11/2023 ED outreach [place] 04/07/2023 Reason Comments Rash Bilateral legs x 1 w eeks. Hurts Leg Pain X 1 week. Bilateral Reason Onset Date Comments ED Outreach 07/03/2023 [place] [facility] 07/01/23 Reason Onset Date Comments ed outreach 10/02/2023 Ed outreach [id number] Reason Comments Appointment Reason Comments Establish Care Reason Comments Consult Reason Comments Radio Gen RMP Specialty Diagnoses / Procedures Referred By Contac t Referred To Contact XR IMAGING Diagnoses Pain Procedures XR SHOULDER GENERAL 3V OR MORE AP/TRUE AP/OTHER LEFT RADEX SHOULDER COMPLETE MINIMUM 2 VIEWS Humera Harper, SUPERVISOR CHASSIS ASSEMBLY.ENGINEERING AND DEVELOPMENT DIRECTOR [address] [place] [address] Xr Imaging [place] [address] Referral ID Status Reason Start Date Expiration Date V isits Requested Visits Authorized [id number] Closed Auto-Generate d Referral 01/18/2023 02/17/2024 1 1 Reason Onset Date Comments Transition Of Care 04/21/2024 Pt was admitt ed to [facility] on 04/18/2024 for ISABELLA, COVID-19. Pt was d/c on 04/19/2024 Reason Onset Date Comments ED Follow-up 01/07/2025 [facility] 2024 Source Comments (unrecognize d section and content) In the event this informatio n is protected by the Federal Confidentiality of Alcohol and Drug Abuse Patient Records regulations: The Federal rules restrict any use of the information to criminally investigate or prosecute any alcohol or drug abuse patient.[facility] Center[facility] the event this information is protected by the Federal Confidentiality of Alcohol and Drug Abuse Patient Records regulations: The Federal rules restrict any use of the information to criminally investigate or prosecute any alcohol or drug abuse patient.[facility] CenterIn the event this information is protected by the Federal Confidentiality of Alcohol and Drug Abuse Patient Records regulations: The Federal rules restrict any use of the information to criminally investigate or prosecute any alcohol or drug abuse patient.[facility] CenterIn the event this information is protected by the Federal Confidentiality of Alcohol and Drug Abuse Patient Records regulations: The Federal rules restrict any use of the information to criminally investigate or prosecute any alcohol or drug abuse patient.[facility] CenterIn the event this information is protected by the Federal Confidentiality of Alcohol and Drug Abuse Patient Records regulations: The Federal rules restrict any use of the information to criminally investigate or prosecute any alcohol or drug abuse patient.[facility] CenterIn the event this information is protected by the Federal Confidentiality of Alcohol and Drug Abuse Patient Records regulations: The Federal rules restrict any use of the information to criminally investigate or prosecute any alcohol or drug abuse patient.[facility] CenterIn the event this information is protected by the Federal Confidentiality of Alcohol and Drug Abuse Patient Records regulations: The Federal rules restrict any use of the information to criminally investigate or prosecute any alcohol or drug abuse patient.[facility] CenterIn the event this information is protected by the Federal Confidentiality of Alcohol and Drug Abuse Patient Records regulations: The Federal rules restrict any use of the information to criminally investigate or prosecute any alcohol or drug abuse patient.[facility] CenterIn the event this information is protected by the Federal Confidentiality of Alcohol and Drug Abuse Patient Records regulations: The Federal rules restrict any use of the information to criminally investigate or prosecute any alcohol or drug abuse patient.[facility] CenterIn the event this information is protected by the Federal Confidentiality of Alcohol and Drug Abuse Patient Records regulations: The Federal rules restrict any use of the information to criminally investigate or prosecute any alcohol or drug abuse patient.[facility] CenterIn the event this information is protected by the Federal Confidentiality of Alcohol and Drug Abuse Patient Records regulations: The Federal rules restrict any use of the information to criminally investigate or prosecute any alcohol or drug abuse patient.[facility] CenterIn the event this information is protected by the Federal Confidentiality of Alcohol and Drug Abuse Patient Records regulations: The Federal rules restrict any use of the information to criminally investigate or prosecute any alcohol or drug abuse patient.[facility] CenterIn the event this information is protected by the Federal Confidentiality of Alcohol and Drug Abuse Patient Records regulations: The Federal rules restrict any use of the information to criminally investigate or prosecute any alcohol or drug abuse patient.[facility] CenterIn the event this information is protected by the Federal Confidentiality of Alcohol and Drug Abuse Patient Records regulations: The Federal rules restrict any use of the information to criminally investigate or prosecute any alcohol or drug abuse patient.[facility] CenterIn the event this information is protected by the Federal Confidentiality of Alcohol and Drug Abuse Patient Records regulations: The Federal rules restrict any use of the information to criminally investigate or prosecute any alcohol or drug abuse patient.[facility] CenterIn the event this information is protected by the Federal Confidentiality of Alcohol and Drug Abuse Patient Records regulations: The Federal rules restrict any use of the information to criminally investigate or prosecute any alcohol or drug abuse patient.[facility] CenterIn the event this information is protected by the Federal Confidentiality of Alcohol and Drug Abuse Patient Records regulations: The Federal rules restrict any use of the information to criminally investigate or prosecute any alcohol or drug abuse patient.[facility] Care Teams (unrecognized sec tion and content) Quality Assurance Supervisor Relationship Specialty Start Date End Date Shania Vieira, APOORVA.[facility] [address] [place] [address] PCP - General Family Practice 05/17/20 Quality Assurance Supervisor Relationship Specialty Start Date End Date Shania Vieira, SUPERVISOR CHASSIS ASSEMBLY.ENGINEERING AND DEVELOPMENT DIRECTOR [address] [place] [address] PCP - General Family Medicine 05/17/20 Quality Assurance Supervisor Relationship Specialty Start Date End Date Shania Vieira, SUPERVISOR CHASSIS ASSEMBLY.ENGINEERING AND DEVELOPMENT DIRECTOR [address] [place] [address] PCP - General Family Medicine 05/17/20 Quality Assurance Supervisor Relationship Specialty Start Date End Date Shania Vieira, SUPERVISOR CHASSIS ASSEMBLY.ENGINEERING AND DEVELOPMENT DIRECTOR [address] [place] [address] PCP - General Family Medicine 05/17/20 Quality Assurance Supervisor Relationship Specialty Start Date End Date Shania Vieira, SUPERVISOR CHASSIS ASSEMBLY.ENGINEERING AND DEVELOPMENT DIRECTOR [address] [facility] [place] [address] PCP - General Family Medicine 05/17/20 Quality Assurance Supervisor Relationship Specialty Start Date End Date Shania Vieira, SUPERVISOR CHASSIS ASSEMBLY.ENGINEERING AND DEVELOPMENT DIRECTOR [address] [place] [address] PCP - General Family Medicine 05/17/20 Quality Assurance Supervisor Relationship Specialty Start Date End Date Shania Vieira, SUPERVISOR CHASSIS ASSEMBLY.ENGINEERING AND DEVELOPMENT DIRECTOR [address] [facility] [place] [address] PCP - General Family Medicine 05/17/20 Quality Assurance Supervisor Relationship Specialty Start Date End Date Shania Vieira, SUPERVISOR CHASSIS ASSEMBLY.ENGINEERING AND DEVELOPMENT DIRECTOR [address] [place] [address] PCP - General Family Medicine 05/17/20 Quality Assurance Supervisor Relationship Specialty Start Date End Date Shania Vieira, SUPERVISOR CHASSIS ASSEMBLY.ENGINEERING AND DEVELOPMENT DIRECTOR [address] [place], [place] [id number] PCP - General Family Medicine 05/17/20 Team Status: Active Member Role Status Dates No Primary Care Physician Primary Care Provider Active Team Status: Inactive Member Role Status Dates Dr. Jose E Meier DO Emergency Provider Active No Primary Care Physician Primary Care Provider Active Quality Assurance Supervisor Relationship Specialty Start Date End Date Shania Vieira, SUPERVISOR CHASSIS ASSEMBLY.ENGINEERING AND DEVELOPMENT DIRECTOR [address] [place] [address] PCP - General Family Medicine 01/15/24 Quality Assurance Supervisor Relationship Specialty Start Date End Date Shania Vieira SUPERVISOR CHASSIS ASSEMBLY.ENGINEERING AND DEVELOPMENT DIRECTOR [address] [place], [place] [id number] PCP - General Family Medicine 01/15/24 Quality Assurance Supervisor Relationship Specialty Start Date End Date Shania Vieira, SUPERVISOR CHASSIS ASSEMBLY.ENGINEERING AND DEVELOPMENT DIRECTOR [address] [place], [place] [id number] PCP - General Family Medicine 05/17/20 12/16/23 Quality Assurance Supervisor Relationship Specialty Start Date End Date Shania Vieira, SUPERVISOR CHASSIS ASSEMBLY.ENGINEERING AND DEVELOPMENT DIRECTOR [address] [place] [address] PCP - General Family Medicine 01/15/24 Team Status: Active Member Role Status Dates Shania Vieira BUG TRIMMER, BUG TRIMMER-C Primary Care Provider Active Team Status: Inactive Member Role Status Dates Shania Vieira BUG TRIMMER, BUG TRIMMER-C Primary Care Provider Active Start: January 07, 2025 End: January 07, 2025 Dr. Stephan Burk MD Emergency Provider Active S tart: January 07, 2025 End: January 07, 2025 Quality Assurance Supervisor Relationship Specialty Start Date End Date Shania Vieira SUPERVISOR CHASSIS ASSEMBLY.ENGINEERING AND DEVELOPMENT DIRECTOR [address] [place] [address] PCP - General Family Medicine 01/15/24 Team Status: Inactive Member Role Status Dates Shania Vieira BUG TRIMMER, BUG TRIMMER-C Primary Care Provider Active Start: January 07, 2025 End: January 07, 2025 Dr. Stephan Burk MD Attending Provider Active S tart: January 07, 2025 End: January 07, 2025 Dr. Stephan Burk MD Emergency Provider Active S tart: January 07, 2025 End: January 07, 2025 Team Status: Active Member Role Status Dates Shania Vieira BUG TRIMMER, BUG TRIMMER-C Primary Care Provider Active Start: January 21, [...] BE BASED ON THE PRIMARY CLINICAL RECORDS. [facility]. provides no warranty or guarantee of the accuracy or completeness of information in this document.
--- OUTSIDE RECORDS SUMMARY | 2025-01-22 07:14 | XMS RPT_ITS | CCD ---
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 #### [facility] [address] [place], [address] Basophils/100 WBC (Bld) 0.1 % Normal 0-1 [facility] Comment on above: Performed By: #### M 100.637, M100.6796 #### [facility] [address] [place], [address] Eosinophils/100 WBC (Bld) 0.0 % Normal 0-5 [facility] Comment on above: Performed By: #### M 100.637, M100.6796 #### [facility] [address] [place], [address] Erythrocyte distribution width (RBC) [Ratio] 13.3 % Normal 11.6-14.6 [facility] Comment on above: Performed By: #### M 100.637, M100.6796 #### [facility] [address] [place], [address] Hematocrit (Bld) [Volume fraction] 43.8 % Normal 40-54 [facility] Comment on above: Performed By: #### M 100.637, M196 #### [facility] [address] [place], [address] Hemoglobin (Bld) [Mass/Vol] 14.8 g/dL Normal 13.0-16.5 [facility] Comment on above: Performed By: #### M 100.637, #### [facility] [address] [place], [address] IG% 0.400 Normal 0.0-0.9 [facility] Comment on above: Result Comment: IG% - Immature Granulocytes (promyelocytes, myelocytes and metamyelocytes) > 1% indicates that a LEFT SHIFT is Present. Performed By: #### M 100.637, 96 #### [facility] [address] [place], [address] Lymphocytes/100 WBC (Bld) 6.3 % Low 19-41 [facility] Comment on above: Performed By: #### M 100.637, 96 #### [facility] [address] [place], [address] MCH (RBC) [Entitic mass] 29.5 pg Normal 27.0-32.0 [facility] Comment on above: Performed By: #### M 100.637, 96 #### [facility] [address] [place], [address] MCHC (RBC) [Mass/Vol] 33.8 g/dL Normal 32-36 [facility] Comment on above: Performed By: #### M 100.637, 96 #### [facility] [address] [place], [address] MCV (RBC) [Entitic vol] 87.3 fL Normal 80-94 [facility] Comment on above: Performed By: #### M 100.637, M1.96 #### [facility] [address] [place], [address] Monocytes/100 WBC (Bld) 2.0 % Normal 0-10 [facility] Comment on above: Performed By: #### M 100.637, .96 #### [facility] [address] [place], [address] Neutrophils/100 WBC (Bld) 91.2 % High 47-70 [facility] Comment on above: Performed By: #### M 100.637, 96 #### [facility] [address] [place], [address] Nucleated RBC (Bld) [#/Vol] 0 10*3/uL Normal 0-5 [facility] Comment on above: Performed By: #### M 100.637, .96 #### [facility] [address] [place], [address] Platelet mean volume (Bld) [Entitic vol] 10.2 fL Normal 6.2-12.0 [facility] Comment on above: Performed By: #### M 100.637, .96 #### [facility] [address] [place], [address] Platelets (Bld) [#/Vol] 269 10*3/uL Normal 150-450 [facility] Comment on above: Performed By: #### M 100.637, M1.96 #### [facility] [address] [place], [address] RBC (Bld) [#/Vol] 5.02 10*6/uL Normal 4.6-6.2 [facility] Comment on above: Performed By: #### M 100.637, M100.6796 #### [facility] [address] [place], [address] RDW SD 42.8 fl Normal 35.1-43.9 [facility] Comment on above: Performed By: #### M 100.637, M100.6796 #### [facility] [address] [place], [address] WBC (Bld) [#/Vol] 16.6 10*3/uL High 4.4-11.0 [facility] Comment on above: Performed By: #### M 100.637, M100.6796 #### [facility] [address] [place], [address] SMEAR COMMENT SCANNED Normal [facility] Comment on above: Result Comment: NEUT ROPHILLIA PRESENT Performed By: #### L 100.0100, L501.2450, L500.2500, L500.3400, L501.5200 #### [facility] [address] [place], [address] CDIFF (PCR)on 04-18-2024 CDIFF Is the patient receiving laxatives? N New/unexplained onset of 3 or more stools in past 24 hrs? Y Pending 027 027 NAP1-B1 Presumptive Negative *for epidemiolologic???use C. Diff PCR Negative- No toxigenic C. Diff Detected Normal [facility] Comment on above: Performed By: #### M 100.637, M100.6796 #### [facility] [address] [place], [address] CPK Total, Creatine Kinaseon 04-18-2024 CPK TOTAL 790 U/L High 39-308 [facility] Comment on above: Order Comment: Comme nts: add to ED labs Performed By: #### L 501.0520 #### [facility] [address] [place], [address] CRPon 04-18-2024 C-REACTIVE PROT 2.95 mg/L Normal 0.0-3.0 [facility] Comment on above: Order Comment: Comme nts: May add to ED labsmay add to ED labs Result Comment: C-Re active Protein (CRP) provides useful information for the diagnosis, therapy and monitoring of inflammatory processes and associated diseases. For the evaluation of Relative Risk for Cardiovascular Disease, a High Sensitivity CRP (HSCRP) should be ordered. Performed By: #### M 100.637, M100.6796 #### [facility] [address] [place], [address] Comprehensive Metabolic Prof ilon 04-18-2024 Albumin [Mass/Vol] 3.8 g/dL Normal 3.2-5.0 [facility] Comment on above: Performed By: #### M 100.637, M100.6796 #### [facility] [address] [place], [address] Albumin/Globulin [Mass ratio] 1.2 {ratio} Normal 0.9-2.4 [facility] Comment on above: Performed By: #### M 100.637, M100.6796 #### [facility] [address] [place], [address] ALK P 72 U/L Normal 45-117 [facility] Comment on above: Performed By: #### M 100.637, M100.6796 #### [facility] [address] [place], [address] ALT [Catalytic activity/Vol] 51 U/L Normal 16-61 [facility] Comment on above: Performed By: #### M 100.637, M100.6796 #### [facility] [address] [place], [address] AST [Catalytic activity/Vol] 62 U/L High 15-37 [facility] Comment on above: Performed By: #### M 100.637, M100.96 #### [facility] [address] [place], [address] Bilirubin [Mass/Vol] 1.00 mg/dL Normal 0.20-1.00 [facility] Comment on above: Result Comment: For patients on eltrombopag therapy, use of Dimension Portia TBIL is not recommended. Performed By: #### M 100.637, M100.96 #### [facility] [address] [place], [address] BUN/CRE 14.6 RATIO Normal 10-20 [facility] Comment on above: Performed By: #### M 100.637, M1.96 #### [facility] [address] [place], [address] CA,Total 8.9 mg/dL Normal 8.5-10.1 [facility] Comment on above: Performed By: #### M 100.637, M100.96 #### [facility] [address] [place], [address] Chloride [Moles/Vol] 109 mmol/L High 98-107 [facility] Comment on above: Performed By: #### M 100.637, M100.96 #### [facility] [address] [place], [address] CO2 [Moles/Vol] 20.0 mmol/L Low 21.0-32.0 [facility] Comment on above: Performed By: #### M 100.637, M100.6796 #### [facility] [address] [place], [address] Creatinine [Mass/Vol] 1.64 mg/dL High 0.70-1.30 [facility] Comment on above: Result Comment: The validity of the calculated GFR GFRAA in patients over 70 years has not been determined. Clinical correlation is essential. Performed By: #### M 100.637, M100.96 #### [facility] [address] [place], [address] ECRCL 66.96 ml/min Normal [facility] Comment on above: Performed By: #### M 100.637, M100.96 #### [facility] [address] [place], [address] EST GFR - AA 62 mL/min Normal >60 [facility] Comment on above: Result Comment: Afri can Ugandan GFR Calc Performed By: #### M 100.637, M1.96 #### [facility] [address] [place], [address] GAP 10 Normal 5-15 [facility] Comment on above: Performed By: #### M 100.637, .96 #### [facility] [address] [place], [address] GFR/1.73 sq M.predicted among non-blacks MDRD (S/P/Bld) [Vol rate/Area] 51 mL/min/{1.73_m2} Low >60 [facility] Comment on above: Result Comment: Non- GFR Calc Performed By: #### M 100.637, M1.96 #### [facility] [address] [place], [address] Globulin (S) [Mass/Vol] 3.1 g/dL Normal 2.2-4.2 [facility] Comment on above: Performed By: #### M 100.637, M100.96 #### [facility] [address] [place], [address] Glucose [Mass/Vol] 116 mg/dL High 74-106 [facility] Comment on above: Result Comment: Fast ing Glucose result from 100 to 125 mg/dL suggests IMPAIRED HOMEOSTASIS per A.D.A. criteria. Performed By: #### M 100.637, M100.6796 #### [facility] [address] [place], [address] Potassium [Moles/Vol] 4.2 mmol/L Normal 3.5-5.1 [facility] Comment on above: Performed By: #### M 100.637, M100.6796 #### [facility] [address] [place], [address] Sodium [Moles/Vol] 139 mmol/L Normal 136-145 [facility] Comment on above: Performed By: #### M 100.637, M100.6796 #### [facility] [address] [place], [address] T PROT 6.9 g/dL Normal 6.4-8.2 [facility] Comment on above: Performed By: #### M 100.637, M100.96 #### [facility] [address] [place], [address] Urea nitrogen [Mass/Vol] 24 mg/dL High 7-18 [facility] Comment on above: Performed By: #### M 100.637, M100.6796 #### [facility] [address] [place], [address] D-Dimer Quantitative (DVT/PE )on 04-18-2024 D-DIMER QUANT 0.39 FEU/ug/m Normal 0.27-0.49 [facility] Comment on above: Result Comment: NORM AL D-Dimer level (<0.50) indicates no DVT or PE. Performed By: #### M 100.637, M100.6796 #### [facility] [address] [place], [address] Emergency Department Summary on 04-18-2024 Emergency Department Summary [facility] Medical Records Department [address] [place] [address] Emergency Department Summary 04/18/24 MR#: [id number] Acct: [id number] Name: GABRIELA VIDAL Jr. Rep #: [id number] : 1990 33 From: Esteban Medel DO [...] viral st (more content not included)... Normal [facility] Erythrocyte Sed Rateon 04-18 SED RATE Normal 0-20 [facility] Comment on above: Result Comment: JIMMY ASKEW,RN AWARE OF CANCELLING, SHE WILL INFORM Performed By: #### M 100634, M100.6796 #### [facility] [address] [place], [place], [address] Ferritinon 04-18-2024 Ferritin [Mass/Vol] 175 ng/mL Normal 26-388 [facility] Comment on above: Order Comment: Comme nts: May add to ED labsmay add to ED labs Performed By: #### M 100.984, M100.3896 #### [facility] [address] [place], [address] H AND P Exam - Hospitaliston 04-18-2024 H&P Exam - Hospitalist [facility] Medical Records Department [address] [facility] [place] [address] H P Exam - Hospitalist 04/18/24 0228 MR#: [id number] Acct: [id number] Name: GABRIELA VIDAL Rep #: [id number] : 1990 33 From: Lucero Vidal MD PCP: ELOISA Braden Status:ADM IN Location: [facility] [place] HPI - General General Date of Admission: 04/18/24 Date of Service: 04/18/24 Chief Complaint: N/V/D HPI Narrative The patient is a 33 y/o M w/ PMHx: Anxiety and Depression/Mood disorder/High suspicion underlying schizophrenia with history of frequent auditory hallucinations, Tobacco use, CKD stage II per GFR trending, History of Polysubstance abuse (Fentanyl, Methamphetamines per prior records) who presents to the [facility] ED on 04/18/24 with history of [...] Examination: Genera (more content not included)... Normal [facility] HIV - WCHon 04-18-2024 HIV Non-Reactive Normal Nonreactive [facility] Comment on above: Order Comment: Reaso n for Exam: Hx polysubstance abuseReason for Exam: Hepatitis Screen Performed By: #### L 509.8000, L3890.6005, L3890.6100, L3890.6200, L3890.6300 ####[facility] [address] [place], [place], [id number] Hepatitis B Surface Antibody on 04-18-2024 HEP B Surf Ab Non-Reactive Normal [facility] Comment on above: Order Comment: Reaso n for Exam: Hx polysubstance abuseReason for Exam: Hepatitis Screen Result Comment: Non Reactive: Inconsistent with immunity less than <10 mIU/mL Reactive: Consistent with immunity greater than or equal to 10 mIU/mL Performed By: #### L 509.8000, L3890.6005, L3890.6100, L3890.6200, L3890.6300 ####[facility] [address] [place], [place], [address] Hepatitis B Surface Antigeno n 04-18-2024 HEP B Surf Ag Non-Reactive Normal Nonreactive [facility] Comment on above: Order Comment: Reaso n for Exam: Hx polysubstance abuseReason for Exam: Hepatitis Screen Performed By: #### L 509.8000, L3890.6005, L3890.6100, L3890.6200, L3890.6300 ####[facility] [address] [place], [address] Hepatitis C Antibodyon 04-18 Hepatitis C AB Non-Reactive Normal Nonreactive [facility] Comment on above: Order Comment: Reaso n for Exam: Hx polysubstance abuseReason for Exam: Hepatitis Screen Result Comment: Non Reactive: < 0.8 Equivocal: >/= 0.8 to < 1.0 Reactive: >/= 1.0 The CDC requires that a reactive/equivocal HCV antibody result be sent out for confirmation. HCV Quant by PCR testing. Performed By: #### L 509.8000, L3890.6005, L3890.6100, L3890.6200, L3890.6300 ####[facility] [address] [place], [place], [address] L509.8000on 04-18-2024 Syphilis Abs Non-Reactive Normal [facility] Comment on above: Order Comment: Reaso n for Exam: Hx polysubstance abuseReason for Exam: Hepatitis Screen Performed By: #### L 509.8000, L3890.6005, L3890.6100, L3890.6200, L3890.6300 ####[facility] [address] [place], [address] LDHon 04-18-2024 LDH 338 U/L High 87-241 [facility] Comment on above: Order Comment: Comme nts: May add to ED labsmay add to ED labs Performed By: #### M 100.637, M100.6796 #### [facility] [address] [place], [address] Lipaseon 04-18-2024 Lipase [Catalytic activity/Vol] 17 U/L Normal 13-75 [facility] Comment on above: Result Comment: Aniyah castañeda note: LIPASE revised reference range effective 22. New Lipase methodology. Expected to produce lower values than the previous assay method. NEW Reference Range: 13 - 75 U/L Performed By: #### L 100.0100, L501.2450, L500.2500, L500.3400, L501.5200 #### [facility] [address] [place], [address] Liver Profileon 04-18-2024 Albumin [Mass/Vol] 4.8 g/dL Normal 3.2-5.0 [facility] Comment on above: Performed By: #### L 100.0100, L501.2450, L500.2500, L500.3400, L501.5200 #### [facility] [address] [place], [address] ALK P 85 U/L Normal 45-117 [facility] Comment on above: Performed By: #### L 100.0100, L501.2450, L500.2500, L500.3400, L501.5200 #### [facility] [address] [place], [address] ALT [Catalytic activity/Vol] 61 U/L Normal 16-61 [facility] Comment on above: Performed By: #### L 100.0100, L501.2450, L500.2500, L500.3400, L501.5200 #### [facility] [address] [place], [address] AST [Catalytic activity/Vol] 59 U/L High 15-37 [facility] Comment on above: Performed By: #### L 100.0100, L501.2450, L500.2500, L500.3400, L501.5200 #### [facility] [address] [place], [address] Bilirubin [Mass/Vol] 1.50 mg/dL High 0.20-1.00 [facility] Comment on above: Result Comment: For patients on eltrombopag therapy, use of Dimension Portia TBIL is not recommended. Performed By: #### L 100.0100, L501.2450, L500.2500, L500.3400, L501.5200 #### [facility] [address] [place], [address] Bilirubin.direct [Mass/Vol] 0.37 mg/dL High 0.00-0.30 [facility] Comment on above: Performed By: #### L 100.0100, L501.2450, L500.2500, L500.3400, L501.5200 #### [facility] [address] [place], [address] Globulin (S) [Mass/Vol] 3.6 g/dL Normal 2.2-4.2 [facility] Comment on above: Performed By: #### L 100.0100, L501.2450, L500.2500, L500.3400, L501.5200 #### [facility] [address] [place], [address] T PROT 8.4 g/dL High 6.4-8.2 [facility] Comment on above: Performed By: #### L 100.0100, L501.2450, L500.2500, L500.3400, L501.5200 #### [facility] [address] [place], [address] M100.678on 04-18-2024 M100.678 Copy of report sent to Infection Control Printer MS#[id number] 04/18/24 1335 ERICKA. CRITICAL VALUE CALLED TO LSPARR 04/18/24 0122 Abundio Leon. RESULTS READ BACK BY SAME. SARS-CoV-2 (COVID 19) A Positive A INFLUENZA A Negative INFLUENZA B Negative RSV PCR Negative SARS-CoV-2 (COVID 19 PCR) Normal [facility] Comment on above: Performed By: #### M 100.678 ####[facility] [address] [place], [address] Magnesiumon 04-18-2024 Magnesium [Mass/Vol] 2.2 mg/dL Normal 1.6-2.6 [facility] Comment on above: Performed By: #### L 100.0100, L501.2450, L500.2500, L500.3400, L501.5200 #### [facility] [address] [place], [address] Procalcitoninon 04-18-2024 Procalcitonin 3.46 ng/mL High 0.00-0.09 [facility] Comment on above: Result Comment: A [...] Performed By: #### M 100.637, M196 #### [facility] [address] [place], [address] Urine Drug Screen (VISTA)on 04-18-2024 AMPHETAMINES Positive Abnormal <1000 ng/mL [facility] Comment on above: Performed By: #### M 100.637, 96 #### [facility] [address] [place], [address] BARBITIURATES Negative Normal < 200 ng/mL [facility] Comment on above: Performed By: #### M 100.637, 96 #### [facility] Laboratory [address] [place], [address] BENZODIAZIPINE Negative Normal < 200 ng/mL [facility] Comment on above: Performed By: #### M 100.63, 96 #### [facility] [address] [place], [address] COCAINE Negative Normal < 300 ng/mL [facility] Comment on above: Performed By: #### M 100.637, 96 #### [facility] [address] [place], [address] ECSTACY Positive Abnormal < 500 ng/mL [facility] Comment on above: Performed By: #### M 100.637, 96 #### [facility] [address] [place], [address] METHADONE Negative Normal < 300 ng/mL [facility] Comment on above: Performed By: #### M 100.637, M196 #### [facility] [address] [place], [address] OPIATES Negative Normal < 300 ng/mL [facility] Comment on above: Performed By: #### M 100.637, M100.6796 #### [facility] [address] [place], [place], [address] PCP Negative Normal < 25 ng/mL [facility] Comment on above: Performed By: #### M 100.637, M100.6796 #### [facility] [address] [place], [place], [address] THC Positive Abnormal < 50 ng/mL [facility] Comment on above: Performed By: #### M 100.637, M100.6796 #### [facility] [address] [place], [place], [address] VISTA UDS PH 3 Normal [facility] Comment on above: Performed By: #### M 100.637, M100.6796 #### [facility] [address] [place], [place], [address] CNPLindy 01-28-2024 MARTHA Telephone (AGFAMPLE) GABRIELA VIDAL JR. ([id number]) 1990 M Date Time Provider Department 01/28/24 [...] Date Reviewed: 01/15/2024 Reviewed by: Shania Vieira APRN.SHANK BONER - Fully Assessed Reason for Visit: Consult [502] Primary Visit Diagnosis:Acute pain of left shoulder [M25.512] Other Visit Diagnosis:Injury of left shoulder, initial encounter [S49.92XA] Order(s):CONSULT TO ORTHOPAEDICS [9027] Order #: [id number]: 1 FUTURE Prescriptions as of 01/28/2024 - [...] SHANIA VIEIRA on 01/28/24 Normal [facility] Absolute lymphocyte countOrd ered By: Jose E Meier on 09-28-2023 Lymphocytes Auto (Unsp spec) [#/Vol] 1.95 10*3/uL 0.83-4.51 [facility] Automated lymphocyte count a s percentage of total leukocytesOrdered By: Jose E Meier on 09-28-2023 Lymphocytes/100 WBC Auto (Unsp spec) 19.5 % 19-41 [facility] Basophil percentageOrdered B y: Jose E Meier on 09-28-2023 Basophils/100 WBC (Bld) 0.5 % 0-1 [facility] Chloride [Moles/Vol] 113 mmol/L 98-107 [facility] Eosinophils/100 WBC (Bld) 0.3 % 0-5 [facility] Glucose [Mass/Vol] 114 mg/dL 74-106 [facility] Comment on above: Fasting Glucose resu lt from 100 to 125 mg/dL suggests IMPAIRED HOMEOSTASIS per A.D.A. criteria. Hemoglobin (Bld) [Mass/Vol] 14.9 g/dL 13.0-16.5 [facility] Monocytes/100 WBC (Bld) 5.9 % 0-10 [facility] Neutrophils (Bld) [#/Vol] 7.3 10*3/uL 2.0-7.7 [facility] Neutrophils/100 WBC (Bld) 73.3 % 47-70 [facility] Potassium [Moles/Vol] 3.7 mmol/L 3.5-5.1 [facility] Sodium [Moles/Vol] 143 mmol/L 136-145 [facility] WBC (Bld) [#/Vol] 10.0 10*3/uL 4.4-11.0 [facility] Determination of erythrocyte mean corpuscular volume (MCV)Ordered By: Jose E Meier on 09-28-2023 MCV (RBC) [Entitic vol] 89.6 fL 80-94 [facility] Erythrocyte distribution wid th ratioOrdered By: Jose E Meier on 09-28-2023 Erythrocyte distribution width (RBC) [Ratio] 12.3 % 11.6-14.6 [facility] Erythrocyte distribution wid th standard deviationOrdered By: Jose E Meier on 09-28-2023 Erythrocyte distribution width (RBC) [Entitic vol] 40.1 fL 35.1-43.9 [facility] Hematocrit Auto (Bld) [Volum e fraction]Ordered By: Jose E Meier on 09-28-2023 Hematocrit (Bld) [Volume fraction] 44.8 % 40-54 [facility] Immature granulocytes/100 WB C Auto (Bld)Ordered By: Jose E Meier on 09-28-2023 Immature granulocytes/100 WBC (Bld) 0.500 % 0.0-0.9 [facility] Comment on above: IG% - Immature Granu locytes (promyelocytes, myelocytes and metamyelocytes) > 1% indicates that a LEFT SHIFT is Present. Laboratory - Chemistry and C hemistry - challengeOrdered By: Jose E Meier on 09-28-2023 CO2 [Moles/Vol] 28.0 mmol/L 21.0-32.0 [facility] Urea nitrogen/Creatinine [Mass ratio] 15.7 mg/mg 10-20 [facility] Laboratory - Drug toxicology Ordered By: Jose E Meier on 09-28-2023 Amphetamines Ql (U) Negative <1000 ng/mL [facility] Benzodiazepines Ql (U) Negative < 200 ng/mL [facility] Cannabinoids Screen Ql (U) Positive < 50 ng/mL [facility] Cocaine Ql (U) Negative < 300 ng/mL [facility] Opiates Ql (U) Negative < 300 ng/mL [facility] Laboratory - Hematology and Cell countsOrdered By: Jose E Meier on 09-28-2023 MCH (RBC) [Entitic mass] 29.8 pg 27.0-32.0 [facility] MCHC (RBC) [Mass/Vol] 33.3 g/dL 32-36 [facility] Nucleated RBC/100 WBC (Bld) [Ratio] 0 % 0-5 [facility] Platelet mean volume (Bld) [Entitic vol] 10.8 fL 6.2-12.0 [facility] Platelets (Bld) [#/Vol] 256 10*3/uL 150-450 [facility] Laboratory - Microbiology an d Antimicrobial susceptibilityOrdered By: Jose E Meier on 09-28-2023 SARS-CoV-2 (COVID-19) RNA CARLOS+probe Ql (Unsp spec) [facility] No Panel InformationOrdered By: Jose E Meier on 09-28-2023 Estimated Creatinine Clearance Calc 105.36 ml/min [facility] Estimated GFR (MDRD) Amer 107 mL/min >60 [facility] Comment on above: GFR Calc Estimated GFR (MDRD) Non-Af Amer 88 mL/min >60 [facility] Comment on above: Non- GFR Calc Ethyl Alcohol Level 4.0 mg/dL [facility] Comment on above: The serum:whole bloo d ethanol ratio is approximately 1.14and varies slightly with hematocrit. Medical Alcohol reference interval and critical value innon-tolerant individuals; 50 - 100 Impairment 100 Intoxication 100 - 250 Severe Poisoning 250 - 400 Deep/possible fatal coma MDMA (Ecstasy) Screen Negative < 500 ng/mL [facility] Urine Barbiturates Screen Negative < 200 ng/mL [facility] Urine Drug Screen Comment [facility] Comment on above: CONFIRMATORY TESTING FOR [...] Methadone Screen Negative < 300 ng/mL [facility] RBC Auto (Bld) [#/Vol]Ordere d By: Jose E Meier on 09-28-2023 RBC (Bld) [#/Vol] 5.00 10*6/uL 4.6-6.2 [facility] Serum or plasma calcium jacob urement (mass/volume)Ordered By: Jose E Meier on 09-28-2023 Calcium [Mass/Vol] 8.7 mg/dL 8.5-10.1 [facility] Serum or plasma creatinine m easurement (mass/volume)Ordered By: Jose E Meier on 09-28-2023 Creatinine [Mass/Vol] 1.02 mg/dL 0.70-1.30 [facility] Comment on above: The validity of the calculated GFR & GFRAA in patients over 70 years has not been determined. Clinical correlation is essential. Serum or plasma urea nitroge n measurement (mass/volume)Ordered By: Jose E Meier on 09-28-2023 Urea nitrogen [Mass/Vol] 16 mg/dL 7-18 [facility] Thin prep Papanicolaou smear with manual screeningOrdered By: Jose E Meier on 09-28-2023 Thin prep Papanicolaou smear with manual screening 2 5-15 [facility] Urine phencyclidine (PCP) de tectionOrdered By: Jose E Meier on 09-28-2023 Phencyclidine Ql (U) Negative < 25 ng/mL [facility] ALLIED HEALTHon 01-29-2023 ALLIED HEALTH HNO ID: [id number] Author: RT Latoya(R) Service: Radiology Author Type: Pension Agent Type: Allied Health Filed: 01/29/2023 1:10 PM [...] Latoya(R) January 29, 2023 1:10 PM Normal [facility] CBC W Auto Differential pane l (Bld)on 01-29-2023 Basophils (Bld) [#/Vol] 0.03 10*3/uL Normal <0.11 [facility] Comment on above: Order Comment: Speci men Type: BLOOD SPECIMEN Ordering Facility: [facility] Address: [address] [place] [address] Performed By: #### 5 7021-8 #### [facility] CLIA [id number] [address] [place] [address] [place] Basophils/100 WBC (Bld) 0.5 % Normal [facility] Comment on above: Order Comment: Speci men Type: BLOOD SPECIMEN Ordering Facility: [facility] Address: [address] [place] [address] Performed By: #### 5 7021-8 #### [facility] CLIA [id number] [address] [place] [address] [place] Differential cell count method Nom (Bld) Auto Normal [facility] Comment on above: Order Comment: Speci men Type: BLOOD SPECIMEN Ordering Facility: [facility] Address: [address] [address] Performed By: #### 5 7021-8 #### [facility] CLIA [id number] [place] [address] [place] Eosinophils (Bld) [#/Vol] 0.16 10*3/uL Normal <0.46 [facility] Comment on above: Order Comment: Speci men Type: BLOOD SPECIMEN Ordering Facility: [facility] Address: [address] [address] Performed By: #### 5 7021-8 #### [facility] CLIA [id number] [address] [place] [address] [place] Eosinophils/100 WBC (Bld) 2.4 % Normal [facility] Comment on above: Order Comment: Speci men Type: BLOOD SPECIMEN Ordering Facility: [facility] Address: [address] [place] [address] Performed By: #### 5 7021-8 #### [facility] CLIA [id number] [address] [place] [address] [place] Erythrocyte distribution width (RBC) [Ratio] 12.7 % Normal 11.5-15.0 [facility] Comment on above: Order Comment: Speci men Type: BLOOD SPECIMEN Ordering Facility: [facility] Address: [address] [place] [address] Performed By: #### 5 7021-8 #### [facility] CLIA [id number] [address] [place] [address] [place] Hematocrit (Bld) [Volume fraction] 39.3 % Normal 39.0-51.0 [facility] Comment on above: Order Comment: Speci men Type: BLOOD SPECIMEN Ordering Facility: [facility] Address: [address] [place] [address] Performed By: #### 5 7021-8 #### [facility] CLIA [id number] [place] [address] [place] Hemoglobin (Bld) [Mass/Vol] 13.1 g/dL Normal 13.0-17.0 [facility] Comment on above: Order Comment: Speci men Type: BLOOD SPECIMEN Ordering Facility: [facility] Address: [address] [place] [address] Performed By: #### 5 7021-8 #### [facility] CLIA [id number] [place] [address] [place] Immature granulocytes (Bld) [#/Vol] 0.03 10*3/uL Normal <0.10 [facility] Comment on above: Order Comment: Speci men Type: BLOOD SPECIMEN Ordering Facility: [facility] Address: [address] [place] [address] Performed By: #### 5 7021-8 #### [facility] [place] [id number] [address] [place] [address] [place] Immature granulocytes/100 WBC (Bld) 0.5 % Normal [facility] Comment on above: Order Comment: Speci men Type: BLOOD SPECIMEN Ordering Facility: [facility] Address: [address] [place] [address] Performed By: #### 5 7021-8 #### [facility] IA [id number] [address] [place] [address] [place] Lymphocytes (Bld) [#/Vol] 3.11 10*3/uL Normal 1.00-4.00 [facility] Comment on above: Order Comment: Speci men Type: BLOOD SPECIMEN Ordering Facility: [facility] Address: [address] [place] [address] Performed By: #### 5 7021-8 #### [facility] CLIA [id number] [address] [place] [address] [place] Lymphocytes/100 WBC (Bld) 47.3 % Normal [facility] Comment on above: Order Comment: Speci men Type: BLOOD SPECIMEN Ordering Facility: [facility] Address: [address] [address] Performed By: #### 5 7021-8 #### [facility] CLIA [id number] [address] [place] [address] MCH (RBC) [Entitic mass] 30.0 pg Normal 26.0-34.0 [facility] Comment on above: Order Comment: Speci men Type: BLOOD SPECIMEN Ordering Facility: [facility] Address: [address] [address] Performed By: #### 5 7021-8 #### [facility] CLIA [id number] [address] [place] [address] [place] MCHC (RBC) [Mass/Vol] 33.3 g/dL Normal 30.5-36.0 [facility] Comment on above: Order Comment: Speci men Type: BLOOD SPECIMEN Ordering Facility: [facility] Address: [address] [address] Performed By: #### 5 7021-8 #### [facility] CLIA [id number] [address] [place] [address] [place] MCV (RBC) [Entitic vol] 90.1 fL Normal 80.0-100.0 [facility] Comment on above: Order Comment: Speci men Type: BLOOD SPECIMEN Ordering Facility: [facility] Address: [address] [address] Performed By: #### 5 7021-8 #### [facility] CLIA [id number] [address] [place] [address] [place] Monocytes (Bld) [#/Vol] 0.65 10*3/uL Normal <0.87 [facility] Comment on above: Order Comment: Speci men Type: BLOOD SPECIMEN Ordering Facility: [facility] Address: [address] [address] Performed By: #### 5 7021-8 #### [facility] CLIA [id number] [address] [place], [place] [id number] [place] Monocytes/100 WBC (Bld) 9.9 % Normal [facility] Comment on above: Order Comment: Speci men Type: BLOOD SPECIMEN Ordering Facility: [facility] Address: [address] [place] [address] Performed By: #### 5 7021-8 #### [facility] CLIA [id number] [place] [address] [place] Neutrophils (Bld) [#/Vol] 2.59 10*3/uL Normal 1.45-7.50 [facility] Comment on above: Order Comment: Speci men Type: BLOOD SPECIMEN Ordering Facility: [facility] Address: [address] [place] [address] Performed By: #### 5 7021-8 #### [facility] CLIA [id number] [address] [place] [address] [place] Neutrophils/100 WBC (Bld) 39.4 % Normal [facility] Comment on above: Order Comment: Speci men Type: BLOOD SPECIMEN Ordering Facility: [facility] Address: [address] [place] [address] Performed By: #### 5 7021-8 #### [facility] CLIA [id number] [address] [place] [address] [place] Nucleated RBC (Bld) [#/Vol] 10*3/uL Normal <0.01 [facility] Comment on above: Order Comment: Speci men Type: BLOOD SPECIMEN Ordering Facility: [facility] Address: [address] [place] [address] Performed By: #### 5 7021-8 #### [facility] CLIA [id number] [address] [place] [address] [place] Nucleated RBC/100 WBC (Bld) [Ratio] 0.0 /100 WBC Normal [facility] Comment on above: Order Comment: Speci men Type: BLOOD SPECIMEN Ordering Facility: [facility] Address: [address] [place] [address] Performed By: #### 5 7021-8 #### [facility] CLIA [id number] [place] [address] [place] Platelet mean volume (Bld) [Entitic vol] 10.9 fL Normal 9.0-12.7 [facility] Comment on above: Order Comment: Speci men Type: BLOOD SPECIMEN Ordering Facility: [facility] Address: [address] [place] [address] Performed By: #### 5 7021-8 #### [facility] CLIA [id number] [place] [address] [place] Platelets (Bld) [#/Vol] 209 10*3/uL Normal 150-400 [facility] Comment on above: Order Comment: Speci men Type: BLOOD SPECIMEN Ordering Facility: [facility] Address: [address] [place] [address] Performed By: #### 5 7021-8 #### [facility] CLIA [id number] [address] [place] [address] [place] RBC (Bld) [#/Vol] 4.36 10*6/uL Normal 4.20-6.00 [facility] Comment on above: Order Comment: Speci men Type: BLOOD SPECIMEN Ordering Facility: [facility] Address: [address] [place] [address] Performed By: #### 5 7021-8 #### [facility] CLIA [id number] [address] [place] [address] [place] WBC (Bld) [#/Vol] 6.57 10*3/uL Normal 3.70-11.00 [facility] Comment on above: Order Comment: Speci men Type: BLOOD SPECIMEN Ordering Facility: [facility] Address: [address] [place] [address] Performed By: #### 5 7021-8 #### [facility] CLIA [id number] [address] [place] [address] [place] Comprehensive metabolic 2000 panelon 01-29-2023 Albumin [Mass/Vol] 3.6 g/dL Low 3.9-4.9 [facility] Comment on above: Order Comment: Speci men Type: BLOOD SPECIMEN Ordering Facility: [facility] Address: [address] [place] [address] Performed By: #### 1 9123-9, [id number], 82976-1 #### [facility] CLIA [id number] [place] [address] [place] ALP [Catalytic activity/Vol] 46 U/L Normal 38-113 [facility] Comment on above: Order Comment: Speci men Type: BLOOD SPECIMEN Ordering Facility: [facility] Address: [address] [place] [address] Performed By: #### 1 9123-9, [id number], 06913-5 #### [facility] CLIA [id number] [address] [place] [address] [place] ALT [Catalytic activity/Vol] 13 U/L Normal 10-54 [facility] Comment on above: Order Comment: Speci men Type: BLOOD SPECIMEN Ordering Facility: [facility] Address: [address] [place] [address] Performed By: #### 1 9123-9, [id number], 68188-0 #### [facility] CLIA [id number] [address] [place] [address] [place] Anion gap [Moles/Vol] 7 mmol/L Low 9-18 [facility] Comment on above: Order Comment: Speci men Type: BLOOD SPECIMEN Ordering Facility: [facility] Address: [address] [place] [address] Performed By: #### 1 9123-9, [id number], 71354-6 #### [facility] CLIA [id number] [place] [address] [place] AST [Catalytic activity/Vol] 16 U/L Normal 14-40 [facility] Comment on above: Order Comment: Speci men Type: BLOOD SPECIMEN Ordering Facility: [facility] Address: [address] Performed By: #### 1 23-9, [id number], #### [facility] CLIA [id number] [address] [place] [address] [place] Bilirubin [Mass/Vol] 0.4 mg/dL Normal 0.2-1.3 [facility] Comment on above: Order Comment: Speci men Type: BLOOD SPECIMEN Ordering Facility: [facility] Address: [address] [address] Performed By: #### 1 23-9, [id number], #### [facility] CLIA [id number] [address] [place] [address] [place] Calcium [Mass/Vol] 8.4 mg/dL Low 8.5-10.2 [facility] Comment on above: Order Comment: Speci men Type: BLOOD SPECIMEN Ordering Facility: [facility] Address: [address] [address] Performed By: #### 1 23-9, [id number], #### [facility] CLIA [id number] [address] [place] [address] [place] Chloride [Moles/Vol] 108 mmol/L High 97-105 [facility] Comment on above: Order Comment: Speci men Type: BLOOD SPECIMEN Ordering Facility: [facility] Address: [address] Performed By: #### 1 23-9, [id number], #### [facility] CLIA [id number] [address] [place] [address] [place] CO2 [Moles/Vol] 26 mmol/L Normal 22-30 [facility] Comment on above: Order Comment: Speci men Type: BLOOD SPECIMEN Ordering Facility: [facility] Address: [address] Performed By: #### 1 9123-9, [id number], #### [facility] CLIA [id number] [address] [place] [address] [place] Creatinine [Mass/Vol] 1.14 mg/dL Normal 0.73-1.22 [facility] Comment on above: Order Comment: Cristela enss Type: BLOOD SPECIMEN Ordering Facility: [facility] Address: [address] [place] [address] Performed By: #### 1 9123-9, [id number], 58446-4 #### [facility] CLIA [id number] [place] [address] [place] ESTIMATED GLOMERULAR FILTRATION RATE 87 mL/min/1.73m??? Normal >=60 [facility] Comment on above: Order Comment: Cristela ness Type: BLOOD SPECIMEN Ordering Facility: [facility] Address: [address] [place] [address] Result Comment: Cathy mated Glomerular Filtration Rate [...] actual GFR. Performed By: #### 1 9123-9, [id number], 41190-5 #### [facility] CLIA [id number] [address] [place] [address] [place] Glucose [Mass/Vol] 115 mg/dL High 74-99 [facility] Comment on above: Order Comment: Cristela ness Type: BLOOD SPECIMEN Ordering Facility: [facility] Address: [address] [place] [address] Result Comment: The [place] [employer] (ADA) provides guidance for cutoff [...] Standards of Medical Care in Diabetes 2016, [place] [employer]. Diabetes Care. 2016.39(Suppl 1). Performed By: #### 1 9123-9, [id number], #### [facility] CLIA [id number] [address] [place] [address] [place] Potassium [Moles/Vol] 4.1 mmol/L Normal 3.7-5.1 [facility] Comment on above: Order Comment: Speci men Type: BLOOD SPECIMEN Ordering Facility: [facility] Address: [address] [address] Performed By: #### 1 9123-9, [id number], #### [facility] CLIA [id number] [address] [place] [address] [place] Protein [Mass/Vol] 5.5 g/dL Low 6.3-8.0 [facility] Comment on above: Order Comment: Speci men Type: BLOOD SPECIMEN Ordering Facility: [facility] Address: [address] [place] [address] Performed By: #### 1 23-9, [id number], #### [facility] CLIA [id number] [address] [place] [address] [place] Sodium [Moles/Vol] 141 mmol/L Normal 136-144 [facility] Comment on above: Order Comment: Speci men Type: BLOOD SPECIMEN Ordering Facility: [facility] Address: [address] [place] [address] Performed By: #### 1 23-9, [id number], #### [facility] CLIA [id number] [address] [place] [address] [place] Urea nitrogen [Mass/Vol] 12 mg/dL Normal 9-24 [facility] Comment on above: Order Comment: Speci men Type: BLOOD SPECIMEN Ordering Facility: [facility] Address: [address] [place] [address] Performed By: #### 1 9123-9, [id number], 84786-5 #### [facility] [place] [id number] [address] [place] [address] STATES OF [facility] ECG COMPLETEon 01-29-2023 ECG COMPLETE Ventricular Rate : 7 8 BPM Atrial Rate : 78 BPM P-R Interval : 160 ms QRS Duration : 122 ms Q-T Interval : 374 ms QTC Calculation(Bazett) : 426 ms Calculated P [place] : 64 degrees Calculated R [place] : 82 degrees Calculated T [place] : 49 degrees Sinus rhythm IVCD, consider atypical RBBB ST elevation suggests acute pericarditis Abnormal ECG no stemi Confirmed by ERIK DAVIS MD ([id number]), medical editor SUZI BRUNO ([id number]) on 01/30/2023 10:18:17 AM NAME : GABRIELA VIDAL PID : [id number] : 1990 Gender : Male Race : ORD : [id number] Procedure Date : Jan 29 2023 12:34:12 Edit Date : Jan 30 2023 10:18:21 Diagnosis: Sinus rhythm IVCD, consider atypical RBBB ST elevation suggests acute pericarditis Abnormal ECG no stemi Confirmed by ERIK DAVIS MD ([id number]), medical editor SUZI BRUNO ([id number]) on 01/30/2023 10:18:17 AM Test Reason : Chest Pain Location : 18 : ED [id number] Overread By : ERIK DAVIS MD Edited By : SUZI BRUNO Referred By : , Acquired by : , [facility] ED NOTEon 01-29-2023 ED NOTE HNO ID: [id number] Author: Juliana Aguilera, ANDRES Service: Nursing Author [...] Pt ambulatory with steady gait on departure. [facility] ED NOTE HNO ID: [id number] Author: Juliana Aguilera RN Service: Nursing Author [...] up, bed in locked and low position [facility] ED NOTE HNO ID: [id number] Author: Anabel Henrandez RN Service: ? Author Type: Registered Nurse Type: ED Notes Filed: 01/29/2023 12:23 PM Note Text: Bed: ED-13 Expected date: Expected time: Means of arrival: Comments: EMS [facility] ED PROV NOTEon 01-29-2023 ED PROV NOTE HNO ID: [id number] Author: Erik Davis MD Service: Emergency Medicine [...] nursing note reviewed. Exam conducted with a application analyst present. Constitutional: General: He is not in [...] intact. Motor: Motor function is intact. Coordination: Ciotic-Gbmp-Ktaxiu Test normal. Gait: Gait is intact. Psychiatric: [...] Final Result IMPRESSION: No acute radiographic abnormality. Inclusion Teacher: PSCB Transcribe Date/Time: Jan 29 2023 1:19P [...] per minute AXIS: Normal axis INTERVALS: Normal NE interval QRS COMPLEX: Normal ST SE (more content not included)... Normal [facility] HIGH SENSITIVITY TROPONIN T (INITIAL)on 01-29-2023 HIGH SENSITIVITY SHEBA 7 ng/L Normal <12 [facility] Comment on above: Order Comment: Speci men Type: BLOOD SPECIMENOrdering Facility: [facility] Address: [address] [place] [id number] Result Comment: When assessing risk for acute [...] day MACE. Performed By: #### 1 9123-9, [id number], 51023-1 ####[facility] [id number] [place] [id number] [place] HIGH SENSITIVITY TROPONIN T (SECOND)on 01-29-2023 HIGH SENSITIVITY SHEBA <6 Normal <12 [facility] Comment on above: Order Comment: Cristela ness Type: BLOOD SPECIMEN Ordering Facility: [facility] Address: [place] [address] Result Comment: When assessing risk for acute [...] 30 day MACE. Performed By: #### L [id number] #### [facility] CLIA [id number] [place] [address] [place] Magnesium SerPl-mCncon 01-29 Magnesium [Mass/Vol] 1.9 mg/dL Normal 1.7-2.3 [facility] Comment on above: Order Comment: Cristela ness Type: BLOOD SPECIMENOrdering Facility: [facility] Address: [place] [address] Performed By: #### 1 9123-9, [id number], 52617-7 ####[facility] [id number] [place] [address] [place] No Panel Informationon 01-29 IMPRESSION: Mild acromioclavicular degenerative changes. Inclusion Teacher: YAIMA Transcribe Date/Time: Jan 29 2023 2:37P Dictated by : BROOK NELSON MD This examination was interpreted and the report reviewed and electronically signed by: BROOK NELSON MD on Guillermo 3 2023 2:38PM EST DIVISION OF RADIOLOGY Radiology Study observation (narrative) [facility] No Panel InformationOrdered By: Ccf Provider on 01-29-2023 [facility] XR CHEST 2V FRONTAL/LATon XR CHEST [...] tissues: Unremarkable. IMPRESSION: No acute radiographic abnormality. Inclusion Teacher: PSCB Transcribe Date/Time: Jan 29 2023 1:19P Dictated by : DEVEN CHAPMAN MD This examination was interpreted and the report reviewed and electronically signed by: DEVEN CHAPMAN MD on Jan 29 2023 1:20PM EST [id number] [facility] XR SHLDR >/=3V AP/ALESSANDRO AP/OTH R LTon [...] >/=3V AP/ALESSANDRO AP/OTHR LT Laterality: RIGHT (accession [id number]), LEFT (accession [id number]) Number of different views (projections): 3 M: XB_1 COMPARISON: RESULT: Mild acromioclavicular degenerative changes bilaterally. Maintained glenohumeral joints bilaterally. Imaged lungs appear to be clear. No acute fracture or dislocation. There are no bony erosions. IMPRESSION: Mild acromioclavicular degenerative changes. Inclusion Teacher: [facility] Transcribe Date/Time: Jan 29 2023 2:37P Dictated by : BROOK NELSON MD This examination was interpreted and the report reviewed and electronically signed by: BROOK NELSON MD on Jan 29 2023 2:38PM EST [id number] [facility] XR SHLDR >/=3V AP/ALESSANDRO AP/OTH [...] >/=3V AP/ALESSANDRO AP/OTHR LT Laterality: RIGHT (accession [id number]), LEFT (accession [id number]) Number of different views (projections): 3 M: XB_1 COMPARISON: RESULT: Mild acromioclavicular degenerative changes bilaterally. Maintained glenohumeral joints bilaterally. Imaged lungs appear to be clear. No acute fracture or dislocation. There are no bony erosions. IMPRESSION: Mild acromioclavicular degenerative changes. Inclusion Teacher: [facility] Transcribe Date/Time: Jan 29 2023 2:37P Dictated by : BROOK NELSON MD This examination was interpreted and the report reviewed and electronically signed by: BROOK NELSON MD on Jan 29 2023 2:38PM EST [id number] [facility] XR Shoulder - left 3 [...] >/=3V AP/ALESSANDRO AP/OTHR LT Laterality: RIGHT (accession [id number]), LEFT (accession [id number]) Number of different views (projections): 3 M: XB_1 COMPARISON: RESULT: Mild acromioclavicular degenerative changes bilaterally. Maintained glenohumeral joints bilaterally. Imaged lungs appear to be clear. No acute fracture or dislocation. There are no bony erosions. DIVISION OF RADIOLOGY Provider, [facility] - 01/29/2023 * * *Final [...] >/=3V AP/ALESSANDRO AP/OTHR LT Laterality: RIGHT (accession [id number]), LEFT (accession [id number]) Number of different views (projections): 3 M: XB_1 COMPARISON: RESULT: Mild acromioclavicular degenerative changes bilaterally. Maintained glenohumeral joints bilaterally. Imaged lungs appear to be clear. No acute fracture or dislocation. There are no bony erosions. IMPRESSION IMPRESSION: Mild acromioclavicular degenerative changes. Inclusion Teacher: PSCB Transcribe Date/Time: Jan 29 2023 2:37P Dictated by : BROOK NELSON MD This examination was interpreted and the report reviewed and electronically signed by: BROOK NELSON MD on Jan 29 2023 2:38PM EST [facility] XR Shoulder - right 3 Viewso [...] >/=3V AP/ALESSANDRO AP/OTHR LT Laterality: RIGHT (accession [id number]), LEFT (accession [id number]) Number of different views (projections): 3 M: XB_1 COMPARISON: RESULT: Mild acromioclavicular degenerative changes bilaterally. Maintained glenohumeral joints bilaterally. Imaged lungs appear to be clear. No acute fracture or dislocation. There are no bony erosions. DIVISION OF RADIOLOGY Provider, [facility] - 01/29/2023 * * *Final [...] >/=3V AP/ALESSANDRO AP/OTHR LT Laterality: RIGHT (accession [id number]), LEFT (accession [id number]) Number of different views (projections): 3 M: XB_1 COMPARISON: RESULT: Mild acromioclavicular degenerative changes bilaterally. Maintained glenohumeral joints bilaterally. Imaged lungs appear to be clear. No acute fracture or dislocation. There are no bony erosions. IMPRESSION IMPRESSION: Mild acromioclavicular degenerative changes. Inclusion Teacher: PSCB Transcribe Date/Time: Jan 29 2023 2:37P Dictated by : BROOK NELSON MD This examination was interpreted and the report reviewed and electronically signed by: BROOK NELSON MD on Jan 29 2023 2:38PM EST [facility] UA DIP, URINE (POC)on 2022 BILIRUBIN UA (POCT) Negative Negative [facility] CLARITY [facility] (POCT) [facility] COLOR UA (POCT) Yellow [facility] GLUCOSE UA (POCT) Negative Negative mg/dL [facility] HEMOGLOBIN/BLOOD UA (POCT) Negative Negative [facility] KETONE UA (POCT) Negative Negative mg/dL [facility] LEUKOCYTES UA (POCT) Negative Negative [facility] NITRITE UA (POCT) Negative Negative [facility] PH UA (POCT) 5.5 4.5 - 8.0 [facility] Protein Ql (U) Negative Negative mg/dL [facility] SPECIFIC GRAVITY UA (POCT) >=1.030 1.005 - 1.030 [facility] UROBILINOGEN UA (POCT) 0.2 E.U./dL Skyla l E.U./dL [facility] Provider Note - ED v3on 11-27 [...] by speech recognition technology. Minor errors in property staff accountant may be present. HISTORY OF PRESENTING ILLNESS [...] Review Statu (more content not included)... Normal [facility] Triage - EDon 2022 Triage - ED Chart Review: ARRIVAL INFORMATION Mode of Arrival: ambulance Agency Name: [place] CHIEF COMPLAINT GABRIELA VIDAL is a Male [...] 11-Dec-2022 21:00 by Dina Wood (RN PRN) [facility] ED NOTEon 01-03-2022 ED NOTE HNO ID: [id number] Author: Darcie Gary RN Service: Nursing Author [...] Pt ambulated off ED in no distress. [facility] ED NOTE HNO ID: [id number] Author: Nuvia George RN Service: ? Author Type: Registered Nurse Type: ED Notes Filed: 01/03/2022 11:51 AM Note Text: Pt presents to the ED with CC of a known dental infection for the past 2 years that has turned into an abscess, pt went to [place] yesterday where they attempted to drain the abscess and started him on oral antibiotics, pt now reports swelling is worse and to the point of his eye swelling shut [facility] ED PROV NOTEon 01-03-2022 ED PROV NOTE HNO ID: [id number] Author: Aysha Poole MD Service: ? Author [...] swelling 2 days ago. He went to [place] emergency department was placed on amoxicillin. He [...] alert and (more content not included)... Normal [facility] XR SHOULDER 2V AP/TRUE AP RT on [...] otherwise maintained. No acute fracture or dislocation. Inclusion Teacher: YAIMA Transcribe Date/Time: Sep 09 2020 9:58A Dictated by : XAVI OLIVER MD This examination was interpreted and the report reviewed and electronically signed by: XAVI OLIVER MD on Sep 09 2020 10:09AM EST Normal [facility] CT CHEST WO IVCONon 08-02-19 CT CHEST WO IVCON Final Report DATE OF EXAM: Aug 02 2020 5:04PM [facility] 0541 - CT CHEST WO IVCON / [...] abnormality identified in the imaged upper abdomen. [employer] Operator (topogram) images: No additional findings. IMPRESSION: Interval resolution of right lower lobe consolidation/pneumonia . No acute findings in the chest. Inclusion Teacher: YAIMA Transcribe Date/Time: Aug 02 2020 6:06P Dictated by : LACI MENDOZA MD This examination was interpreted and the report reviewed and electronically signed by: LACI MENDOZA MD on Aug 02 2020 6:17PM EST Normal [facility] XR CHEST 2V FRONTAL/LATon XR CHEST 2V [...] to ensure resolution and exclude a neoplasm. Inclusion Teacher: YAIMA Transcribe Date/Time: May 17 2020 5:34P Dictated by : JUAN AYERS MD This examination was interpreted and the report reviewed and electronically signed by: JUAN AYERS MD on May 17 2020 5:35PM EST Normal [facility] T. Vaginalis Amplificationon 02-10-2020 T. Vaginalis Amplification SEE BELOW Normal [facility] Comment on above: Result Comment: Tric h vag Amp Source Urine Corrected on 02/08 AT 1722: Previously reported as URINE T vag Amplification SEE BELOW Negative for Trichomonas vaginalis by amplification This test was developed and its performance characteristics determined by [facility]'s Gabriela Esteban [facility] Pathology and Laboratory Medicine [place] ( [facility]). It has not been cleared or approved by the FDA. [facility] is regulated under CLIA as qualified to perform high complexity testing. This test is used for clinical purposes. It should not be regarded as investigational or for research. Performing Laboratory: [facility] [address] [place] [address] Performed By: #### T RVAX #### [facility] [address], [place] [address] GC/Chlam Urine Ampon 020 CT Amplification, Ur CT neg Normal [facility] Comment on above: Result Comment: Nega tive for Chlamydia trachomatis by amplification. Performed By: #### G CTUP #### [facility] [address] [place], [place] [address] GC Amplification, Ur GC neg Normal [facility] Comment on above: Result Comment: Nega tive for Neisseria gonorrhoeae by amplification. Performed By: #### G CTUP #### [facility] [address], [place] [address] GC/Chlam Urine Ampon 020 GC/Chlam Urine Amp Source Urine Normal [facility] Comment on above: Performed By: #### G CTUP #### [facility] [address] [place], [place] [address] XR LUMBAR 3V AP/LAT/L5-S1on 02-02-2020 XR LUMBAR [...] are seen. IMPRESSION: No acute traumatic abnormality Inclusion Teacher: YAIMA Transcribe Date/Time: Feb 02 2020 1:49P Dictated by : LINDA RAMÍREZ MD This examination was interpreted and the report reviewed and electronically signed by: LINDA RAMÍREZ MD on Feb 02 2020 1:54PM EST Normal [facility] Chlamydia and GC PCR Panelon 02-09-2018 Chlamydia [...] as suspected child abuse or molestation. Normal [facility] Comment on above: Order Comment: Speci men Source Comment:Urine voided Performed By: #### C TNGP ####[facility] [id number] [place] [address] CR Abdomen Series w/ Chest 1 Viewon 02-08-2018 CR Abdomen Series w/ Chest 1 View Patient Name: GABRIELA VIDAL Jr Diagnostic Radiology Exam Date/Time 02/08/2018 11:55:40 EDT Exam CR Abdomen Series w/ Chest 1 View Ordering Physician DO GONCALVES KIMBERLY D. Accession Number [id number] CPT4 Codes 75891 () Reason For Exam abdominal pain and [...] Transcribed Date and Time: 02/08/2018 1:03 Normal [facility] Comp Metabolic Panelon 02-08 Calcium 9.2 mg/dL Normal 8.4-10.4 [facility] Comment on above: Performed By: #### H YOLANDA CMP3 ####[address] [place] [address] Alanine aminotransferase (ALT) 19 U/L Normal 13-69 [facility] Comment on above: Performed By: #### H YOLANDA CMP3 ####[address] [place] [address] Alkaline phosphatase (ALP) 45 U/L Normal 38-126 [facility] Comment on above: Performed By: #### H OYLANDA CMP3 ####[address] [place] [address] Anion gap 9 Normal [facility] Comment on above: Performed By: #### H YOLANDA CMP3 ####[address] [place] [address] Aspartate aminotransferase (AST) 22 U/L Normal 15-46 [facility] Comment on above: Performed By: #### H YOLANDA CMP3 ####[address] [place] [address] Bilirubin (total) 0.5 mg/dL Normal 0.2-1.3 [facility] Comment on above: Performed By: #### H YOLANDA CMP3 ####[address] [place] [address] CO2 28 mmol/L Normal 22-30 [facility] Comment on above: Performed By: #### H YOLANDA CMP3 ####[address] [place] [address] Creatinine 1.19 mg/dL Normal 0.52-1.25 [facility] Comment on above: Performed By: #### H YOLANDA CMP3 ####[place] [id number] [facility] [place] [place] [address] eGFR (black) mL/min/{1.73_m2} Normal >60 [facility] Comment on above: Performed By: #### H YOLANDA CMP3 ####[place] [id number] [place] [address] eGFR (non-black) mL/min/{1.73_m2} Normal >60 [facility] Comment on above: Result Comment: Sour ce- MDRD equation with creatinine calibration to IDMS(NKDEP) eGFR not recommended for drug dose adjustment Performed By: #### H YOLANDA CMP3 ####[address] [facility] [place] [place] [address] Glucose mass conc 98 mg/dL Normal 70-100 [facility] Comment on above: Performed By: #### H YOLANDA CMP3 ####[address] [place] [address] Protein 6.9 g/dL Normal 6.3-8.2 [facility] Comment on above: Performed By: #### H YOLANDA CMP3 ####[place] [id number] [facility] [place] [place] [address] Urea nitrogen 10 mg/dL Normal 7-20 [facility] Comment on above: Performed By: #### H YOLANDA CMP3 ####[address] [facility] [place] [place] [address] Potassium molar conc 4.2 mmol/L Normal 3.5-5.1 [facility] Comment on above: Performed By: #### H YOLANDA CMP3 ####[place] [id number] [place] [address] Albumin 4.2 g/dL Normal 3.5-5.0 [facility] Comment on above: Performed By: #### H YOLANDA CMP3 ####[address] [place] [address] Chloride 106 mmol/L Normal 98-107 [facility] Comment on above: Performed By: #### H YOLANDA CMP3 ####[address] [address] Sodium 144 mmol/L Normal 137-145 [facility] Comment on above: Performed By: #### H YOLANDA CMP3 ####[address] [address] Hemogram w/ Autodiffon 02-08 Abs Baso Cnt 0.0 10*3/uL Normal 0.0-0.2 [facility] Comment on above: Performed By: #### H YOLANDA CMP3 ####[address] [address] Abs Neutrophile Cnt 4.4 10*3/uL Normal 1.8-7.0 [facility] Comment on above: Performed By: #### H YOLANDA CMP3 ####[address] [address] Basophils/100 WBC Auto (Bld) 0.5 % Normal 0.0-2.0 [facility] Comment on above: Performed By: #### H YOLANDA CMP3 ####[address] [address] Eosinophils 0.2 10*3/uL Normal 0.0-0.5 [facility] Comment on above: Performed By: #### H YOLANDA CMP3 ####[address] [address] Eosinophils/100 leukocytes 2.5 % Normal 1.0-6.0 [facility] Comment on above: Performed By: #### H YOLANDA CMP3 ####[address] [address] Erythrocyte distribution width Auto Ratio (RBC) 13.0 % Normal 11.5-14.5 [facility] Comment on above: Performed By: #### H YOLANDA CMP3 ####[address] [address] Erythrocytes (RBC) 5.31 10*6/uL Normal 4.40-5.90 [facility] Comment on above: Performed By: #### H YOLANDA CMP3 ####[address] [address] Granulocytes/100 WBC (Bld) 54.6 % Normal 40.0-80.0 [facility] Comment on above: Performed By: #### H YOLANDA CMP3 ####[place] [id number] [place] [address] Hematocrit (HCT) 48.8 % Normal 40.0-52.0 [facility] Comment on above: Performed By: #### H EMDHafsa CMP3 ####[place] [id number] [place] [address] Hemoglobin mass conc (Bld) 16.7 g/dL Normal 13.0-18.0 [facility] Comment on above: Performed By: #### H YOLANDA CMP3 ####[place] [id number] [place] [address] Lymphocytes 2.6 10*3/uL Normal 1.0-4.3 [facility] Comment on above: Performed By: #### H EMDHafsa CMP3 ####[address] [place] [address] Lymphocytes/100 leukocytes 32.5 % Normal 20.0-40.0 [facility] Comment on above: Performed By: #### H YOLANDA CMP3 ####[address] [place] [address] MCH 31.4 pg Normal 26.0-34.0 [facility] Comment on above: Performed By: #### H EMDHafsa CMP3 ####[address] [place] [address] MCHC mass conc (RBC) 34.2 % Normal 32.0-36.0 [facility] Comment on above: Performed By: #### H YOLANDA CMP3 ####[address] [facility] [address] MCV 91.8 fL Normal 80.0-98.0 [facility] Comment on above: Performed By: #### H EMDHafsa CMP3 ####[place] [id number] [place] [place] [address] Monocytes 0.8 10*3/uL Normal 0.0-0.8 [facility] Comment on above: Performed By: #### H YOLANDA CMP3 ####[place] [id number] [place] [place] [address] Monocytes/100 leukocytes 9.9 % Normal 2.0-10.0 [facility] Comment on above: Performed By: #### H YOLANDA CMP3 ####[place] [id number] [place] [address] Platelet mean volume (PMV) 10.2 fL Normal 7.4-10.4 [facility] Comment on above: Performed By: #### H YOLANDA CMP3 ####[place] [id number] [place] [address] Platelets 195 10*3/uL Normal 140-440 [facility] Comment on above: Performed By: #### H YOLANDA CMP3 ####[place] [id number] [place] [address] WBC (Leukocytes) 8.0 10*3/uL Normal 3.6-10.7 [facility] Comment on above: Performed By: #### H YOLANDA CMP3 ####[address] [place] [address] Urinalysis,Macroon 8 Appearance Clear Normal Clear [facility] Comment on above: Performed By: #### U AMAC, UAMIC ####[address] [place] [address] Bilirubin,Ur 1 + Normal Negative [facility] Comment on above: Performed By: #### U AMAC, UAMIC ####[address] [place] [address] Color Yellow Normal Lt. Yellow [facility] Comment on above: Performed By: #### U AMAC, UAMIC ####[place] [id number] [place] [address] Ketone,Urine Negative Normal Negative [facility] Comment on above: Performed By: #### U AMAC, UAMIC ####[place] [id number] [place] [address] Leukocytes Negative Normal Negative [facility] Comment on above: Performed By: #### U AMAC, UAMIC ####[address] [place] [address] Nitrites Negative Normal Negative [facility] Comment on above: Performed By: #### U AMAC, UAMIC ####[address] [place] [address] Occult Blood,Ur Negative Normal Negative [facility] Comment on above: Performed By: #### U AMAC, UAMIC ####[place] [id number] [place] [address] Specific [place],Urine 1.020 Normal 1.005-1.030 [facility] Comment on above: Performed By: #### U AMAC, UAMIC ####[address] [place] [address] Total Protein,Urine Negative Normal Negative [facility] Comment on above: Performed By: #### U AMAC, UAMIC ####[address] [place] [address] Urine, glucose presence NEG (Normal) Normal Negative [facility] Comment on above: Performed By: #### U AMAC, UAMIC ####[address] [place] [address] Urine, pH 6.5 Normal 5.0-8.0 [facility] Comment on above: Performed By: #### U AMAC, UAMIC ####[address] [place] [address] Urobilinogen Normal (0.2) Normal 0-1 [facility] Comment on above: Performed By: #### U AMAC, UAMIC ####[address] [place] [address] Urinalysis,Microscopicon Amorphous Urates Moderate (6-50) Normal Negative [facility] Comment on above: Performed By: #### U AMAC, UAMIC ####[address] [place] [address] Bacteria Few (1-5) Normal Negative [facility] Comment on above: Performed By: #### U AMAC, UAMIC ####[address] [place] [address] Ca Oxylate Crystals Few (1-5) Normal Negative [facility] Comment on above: Performed By: #### U AMAC, UAMIC ####[address] [place] [address] Epithelial Cells Negative Normal 3-5 [facility] Comment on above: Performed By: #### U AMAC, UAMIC ####[facility] [id number] [place] [address] Urine, erythrocytes in sediment by area Negative Normal 0-2 [facility] Comment on above: Performed By: #### U AMAC, UAMIC ####[facility] [id number] [facility] [place] [address] Urine, leukocytes in sedmiment 0 - 2 Normal 0-5 [facility] Comment on above: Performed By: #### U AMAC, UAMIC ####[facility] [id number] [place] [address] Volume,Urine 12 ml Normal [facility] Comment on above: Performed By: #### U AMAC, UAMIC ####[facility] [id number] [place] [address] Vital Signs Date Time Vital Sign Value Performing Clinician Facility 01-21-2025 21:53-0400 Body temperature 100 [degF] Shania Queden DATA COMMUNICATIONS SOFTWARE CONSULTANT-C Work Phone: [facility] 01-21-2025 21:53-0400 Diastolic blood pressure 83 mm[Hg] Shania Queden DATA COMMUNICATIONS SOFTWARE CONSULTANT-C Work Phone: [facility] 01-21-2025 21:53-0400 Heart rate 118 /min Shania Queden DATA COMMUNICATIONS SOFTWARE CONSULTANT-C Work Phone: [facility] 01-21-2025 21:53-0400 Respiratory rate 18 /min Shania Queden DATA COMMUNICATIONS SOFTWARE CONSULTANT-C Work Phone: [facility] 01-21-2025 21:53-0400 SaO2% (BldA) [Mass fraction] 100 % Shania Queden DATA COMMUNICATIONS SOFTWARE CONSULTANT-C Work Phone: [facility] 01-21-2025 21:53-0400 Systolic blood pressure 130 mm[Hg] Shania Queden DATA COMMUNICATIONS SOFTWARE CONSULTANT-C Work Phone: [facility] 01-21-2025 16:05-0400 Body height 175.26 cm Shania Queden DATA COMMUNICATIONS SOFTWARE CONSULTANT-C Work Phone: [facility] 01-21-2025 16:05-0400 Body mass index (BMI) [Ratio] 27 kg/m2 Shania Queden DATA COMMUNICATIONS SOFTWARE CONSULTANT-C Work Phone: [facility] 01-21-2025 16:05-0400 Body weight 83 kg Shania Queden DATA COMMUNICATIONS SOFTWARE CONSULTANT-C Work Phone: [facility] 01-07-2025 09:57-0400 Body temperature 97.3 [degF] Shania Queden DATA COMMUNICATIONS SOFTWARE CONSULTANT-C Work Phone: [facility] 01-07-2025 09:57-0400 Diastolic blood pressure 99 mm[Hg] Shania Queden DATA COMMUNICATIONS SOFTWARE CONSULTANT-C Work Phone: [facility] 01-07-2025 09:57-0400 Heart rate 90 /min Shania Queden DATA COMMUNICATIONS SOFTWARE CONSULTANT-C Work Phone: [facility] 01-07-2025 09:57-0400 Respiratory rate 16 /min Shania Queden DATA COMMUNICATIONS SOFTWARE CONSULTANT-C Work Phone: [facility] 01-07-2025 09:57-0400 SaO2% (BldA) [Mass fraction] 99 % Shania Queden DATA COMMUNICATIONS SOFTWARE CONSULTANT-C Work Phone: [facility] 01-07-2025 09:57-0400 Systolic blood pressure 101 mm[Hg] Shania Queden DATA COMMUNICATIONS SOFTWARE CONSULTANT-C Work Phone: [facility] 01-07-2025 08:42-0400 Body height 175.26 cm Shania Queden DATA COMMUNICATIONS SOFTWARE CONSULTANT-C Work Phone: [facility] 01-07-2025 08:42-0400 Body mass index (BMI) [Ratio] 27.1 kg/m2 Shania Queden DATA COMMUNICATIONS SOFTWARE CONSULTANT-C Work Phone: [facility] 01-07-2025 08:42-0400 Body weight 83.41 kg Shania Queden DATA COMMUNICATIONS SOFTWARE CONSULTANT-C Work Phone: [facility] 01-15-2024 14:37-0400 Body height 177.8 cm Shania Queden TUMBLING AND ROLLING SUPERVISOR.SHANK BONER Work Phone: [facility] 01-15-2024 14:37-0400 Body mass index (BMI) [Ratio] 24.54 kg/m2 Shania Queden TUMBLING AND ROLLING SUPERVISOR.SHANK BONER Work Phone: [facility] 01-15-2024 14:37-0400 Body temperature 97.9 [degF] Shania Queden TUMBLING AND ROLLING SUPERVISOR.SHANK BONER Work Phone: [facility] 01-15-2024 14:37-0400 Body weight 77.56 kg Shania Queden TUMBLING AND ROLLING SUPERVISOR.SHANK BONER Work Phone: [facility] 01-15-2024 14:37-0400 Diastolic blood pressure 62 mm[Hg] Shania Queden TUMBLING AND ROLLING SUPERVISOR.SHANK BONER Work Phone: [facility] 01-15-2024 14:37-0400 Heart rate 98 /min Shania Queden TUMBLING AND ROLLING SUPERVISOR.SHANK BONER Work Phone: [facility] 01-15-2024 14:37-0400 Respiratory rate 18 /min Shania Queden TUMBLING AND ROLLING SUPERVISOR.SHANK BONER Work Phone: [facility] 01-15-2024 14:37-0400 SaO2% (BldA) [Mass fraction] 99 % Shania Queden TUMBLING AND ROLLING SUPERVISOR.SHANK BONER Work Phone: [facility] 01-15-2024 14:37-0400 Systolic blood pressure 122 mm[Hg] Shania Queden TUMBLING AND ROLLING SUPERVISOR.SHANK BONER Work Phone: [facility] 09-29-2023 06:49-0500 Body temperature 97.8 [degF] [facility] 09-29-2023 06:49-0500 Diastolic blood pressure 72 mm[Hg] [facility] 09-29-2023 06:49-0500 Heart rate 71 /min [facility] 09-29-2023 06:49-0500 Respiratory rate 16 /min [facility] 09-29-2023 06:49-0500 SaO2% (BldA) [Mass fraction] 98 % [facility] 09-29-2023 06:49-0500 Systolic blood pressure 122 mm[Hg] [facility] 09-28-2023 17:12-0500 Body height 177.8 cm [facility] 09-28-2023 17:12-0500 Body mass index (BMI) [Ratio] 26.5 kg/m2 [facility] 09-28-2023 17:12-0500 Body weight 83.91 kg [facility] 04-09-2023 10:29-0400 Body height 177.8 cm Gilda Zavala APRN.SHANK BONER Work Phone: [facility] 04-09-2023 10:29-0400 Body temperature 97.81 [degF] Gilda Zavala TUMBLING AND ROLLING SUPERVISOR.SHANK BONER Work Phone: [facility] 04-09-2023 10:29-0400 Body weight 82.1 kg Gilda Zavala APRN.SHANK BONER Work Phone: [facility] 04-09-2023 10:29-0400 Diastolic blood pressure 76 mm[Hg] Gilda Zavala APRN.SHANK BONER Work Phone: [facility] 04-09-2023 10:29-0400 Heart rate 92 /min Gilda Zavala APRN.SHANK BONER Work Phone: [facility] 04-09-2023 10:29-0400 SaO2% (BldA) [Mass fraction] 93 % Gilda Zavala APRN.SHANK BONER Work Phone: [facility] 04-09-2023 10:29-0400 Systolic blood pressure 120 mm[Hg] Gilda Zavala APRN.SHANK BONER Work Phone: [facility] 12-29-2022 16:55-0400 Body height 177.8 cm Shania Vieira TUMBLING AND ROLLING SUPERVISOR.SHANK BONER Work Phone: [facility] 12-29-2022 16:55-0400 Body temperature 97.9 [degF] Shania Vieira TUMBLING AND ROLLING SUPERVISOR.SHANK BONER Work Phone: [facility] 12-29-2022 16:55-0400 Body weight 79.83 kg Shania Vieira TUMBLING AND ROLLING SUPERVISOR.SHANK BONER Work Phone: [facility] 12-29-2022 16:55-0400 Diastolic blood pressure 74 mm[Hg] Shania Butlerden TUMBLING AND ROLLING SUPERVISOR.SHANK BONER Work Phone: [facility] 12-29-2022 16:55-0400 Heart rate 91 /min Shania Queden TUMBLING AND ROLLING SUPERVISOR.SHANK BONER Work Phone: [facility] 12-29-2022 16:55-0400 SaO2% (BldA) [Mass fraction] 97 % Shania Queden TUMBLING AND ROLLING SUPERVISOR.SHANK BONER Work Phone: [facility] 12-29-2022 16:55-0400 Systolic blood pressure 120 mm[Hg] Shania Butlerden TUMBLING AND ROLLING SUPERVISOR.SHANK BONER Work Phone: [facility] 12-12-2022 00:10-0400 Diastolic blood pressure 77 mm[Hg] No Pcp Required [facility] Other Phone (unformatted): [phone] 12-12-2022 00:10-0400 Heart rate 96 /min No Pcp Required [facility] Other Phone (unformatted): [phone] 12-12-2022 00:10-0400 Respiratory rate 18 /min No Pcp Required [facility] Other Phone (unformatted): [phone] 12-12-2022 00:10-0400 SaO2% (BldA) [Mass fraction] 100 % No Pcp Required [facility] Other Phone (unformatted): [phone] 12-12-2022 00:10-0400 Systolic blood pressure 113 mm[Hg] No Pcp Required [facility] Other Phone (unformatted): [phone] 2022 22:57-0400 Body height 180.3 cm No Pcp Required [facility] Other Phone (unformatted): [phone] 2022 22:57-0400 Body temperature 96.8 [degF] No [facility] Other Phone (unformatted): [phone] 2022 22:57-0400 Body weight 84 kg No Pcp Required [facility] Other Phone (unformatted): [phone] 05-18-2019 15:46-0400 BMI (Body Mass Index) 26.54 kg/m2 [facility] [place] 05-18-2019 15:46-0400 Body Temperature 98.6 [degF] [place], [place] 05-18-2019 15:46-0400 Body weight 83.92 kg [place], [place] 05-18-2019 15:46-0400 BP Diastolic 79 mm[Hg] [place] 05-18-2019 15:46-0400 BP Systolic 118 mm[Hg] [place] 05-18-2019 15:46-0400 Pulse (Heart Rate) 94 /min [place], [place] 05-18-2019 15:46-0400 Pulse Oximetry 99 % [place] 05-18-2019 15:46-0400 Respiratory Rate 20 /min [place], [place] Encounters Encounter Date Encounter Type Care Provider Facility Start: 01-21-2025 Evaluation and manag ement of inpatient Dr. Zechariah Bruno MD -Medical Surgical 3 Work Phone: Start: 01-12-2025 End: 01-12-2025 ambulatory Shania Vieira APRN.CNP Work Phone: [facility] Start: 01-12-2025 End: 01-12-2025 Follow-up encounter Shania Vieira APRN.SHANK BONER Work Phone: [facility] Comment on above: ED Follow-up ([facility] 01/07/2025) Start: 01-07-2025 End: 01-07-2025 Emergency department patient visit Shania Vieira DATA COMMUNICATIONS SOFTWARE CONSULTANT-C Work Phone: -Emergency Department Work Phone: Start: 04-21-2024 End: 04-23-2024 Patient Outreach Estephania Lemos [facility] Comment on above: Transition Of Care ( Pt was admitted to [facility] on 04/18/2024 for ISABELLA, COVID-19. Pt was d/c on 04/19/2024) Start: 04-18-2024 ambulatory Shaniaklaus Vieira DATA COMMUNICATIONS SOFTWARE CONSULTANT Facil ity:[facility] Start: 04-18-2024 End: 04-19-2024 Evaluation and management of inpatient Shania Vieira DATA COMMUNICATIONS SOFTWARE CONSULTANT Facility:[facility] Start: 04-17-2024 End: 04-17-2024 Emergency department patient visit Shania Vieira DATA COMMUNICATIONS SOFTWARE CONSULTANT Facility:[facility] Start: 01-28-2024 Telephone encounter Shania Vieira TUMBLING AND ROLLING SUPERVISOR.SHANK BONER Work Phone: [facility] Comment on above: Consult Start: 01-15-2024 End: 01-15-2024 Patient encounter procedure Shania Vieira TUMBLING AND ROLLING SUPERVISOR.SHANK BONER Work Phone: [facility] Comment on above: Schizoaffective diso rder, unspecified type (HCC) (Primary Dx); Adult ADHD; Auditory hallucinations; Acute psychosis (HCC); Marijuana use; Financial difficulties; Acute pain of left shoulder; Living in temporary quarters Start: 12-21-2023 Telephone encounter Shania A Isha TUMBLING AND ROLLING SUPERVISOR.SHANK BONER Work Phone: [facility] Comment on above: Appointment Start: 12-17-2023 ambulatory Estephania Lemos LPN [facility] Start: 10-02-2023 ambulatory Humera Gillis MA [facility] Comment on above: ed outreach (Ed outr each/09/28/2023/[facility] ) Start: 09-28-2023 End: 09-29-2023 Emergency department patient visit [facility]-Emergency Department Work Phone: Start: 07-03-2023 ambulatory Shania Butlerd en TUMBLING AND ROLLING SUPERVISOR.SHANK BONER Work Phone: [facility] Comment on above: ED Outreach ([place] ED 07/01/23) Start: 05-17-2023 ambulatory Shanae Bustamante MA [facility] Start: 04-11-2023 ambulatory Humera Gillis MA [facility] Comment on above: ED outreach (ED outr each /[place] /04/07/2023 ) Start: 04-09-2023 End: 04-09-2023 Patient encounter procedure Gilda Zavala TUMBLING AND ROLLING SUPERVISOR.SHANK BONER Work Phone: [facility] Comment on above: Cellulitis of right lower leg (Primary Dx); Itching Start: 01-29-2023 End: 01-29-2023 Emergency department patient visit SHANIAKLAUS BUTLERJOSHUA Facility:[facility] Start: 01-29-2023 End: 01-29-2023 ambulatory SHANIA VIEIRA Facility:[facility] Start: 01-29-2023 End: 01-29-2023 Subsequent hospital visit by physician [facility] Comment on above: Pain [R52] Start: 01-18-2023 Orders Only Humera Hernandez bobby TUMBLING AND ROLLING SUPERVISOR.SHANK BONER Work Phone: [facility] Comment on above: Pain (Primary Dx) Start: 01-01-2023 Telephone encounter Shania Vieira TUMBLING AND ROLLING SUPERVISOR.SHANK BONER Work Phone: [facility] Comment on above: Results Start: 12-29-2022 End: 12-29-2022 Patient encounter procedure Shania Macie Isha TUMBLING AND ROLLING SUPERVISOR.SHANK BONER Work Phone: [facility] Comment on above: Dysuria (Primary Dx) ; Exposure to STD Start: 2022 End: 12-12-2022 Emergency department patient visit Damion Perdue [facility] Other Phone (unformatted): [phone] Start: 08-24-2022 ambulatory Shania Quijano Qued en TUMBLING AND ROLLING SUPERVISOR.SHANK BONER Work Phone: [facility] Start: 08-24-2022 Follow-up encounter Shania Vieira TUMBLING AND ROLLING SUPERVISOR.SHANK BONER Work Phone: [facility] Comment on above: ED Follow Up ([place] E D discharge 08/21/2022 ED outreach ) Start: 01-06-2022 ambulatory Shania Quiajno Qued en TUMBLING AND ROLLING SUPERVISOR.SHANK BONER Work Phone: [facility] Start: 05-18-2019 End: 05-18-2019 Emergency department patient visit [facility] Comment on above: Encounter for wound re-check (Primary Dx) Start: 02-08-2018 Emergency department patient visit Torrie Goncalves [facility] Procedures Date Procedure Procedure Detail Performing Clinician Start: 01-21-2025 Computed tomography of abdomen and pelvis with intravenous contrast Shania Vieira DATA COMMUNICATIONS SOFTWARE CONSULTANT-C Work Phone: Start: 01-21-2025 Estimated creatinine clearance Shania Vieira DATA COMMUNICATIONS SOFTWARE CONSULTANT-C Work Phone: Start: 01-21-2025 Urnls dip stick/tabl et reagent auto microscopy Shania Vieira DATA COMMUNICATIONS SOFTWARE CONSULTANT-C Work Phone: Start: 09-28-2023 Coronavirus COVID-19 PCR Start: 01-29-2023 Radex shoulder compl ete minimum 2 views Humera Martinez Meredith TUMBLING AND ROLLING SUPERVISOR.SHANK BONER Work Phone: Start: 12-29-2022 Urnls dip stick/tabl et rgnt auto w/o microscopy Shania Vieira TUMBLING AND ROLLING SUPERVISOR.SHANK BONER Work Phone: Start: 08-24-2020 Adult depression scr eening assessment Shania Vieira TUMBLING AND ROLLING SUPERVISOR.SHANK BONER Work Phone: Plan of Treatment Date Care Activity Detail Author Start: 07-01-2033 Urine microalbumin profile DTaP,Tdap,Td Vaccine (8 - Td or Tdap) [facility] Start: 03-30-2025 Influenza vaccination Influenz a Vaccine (Season Ended) [facility] Start: 01-21-2025 Hospital admission, emergency, from emergency room, medical nature [facility] Start: 01-21-2025 Verification routine [facility] Start: 01-21-2025 Admission procedure [facility] Start: 03-30-2024 Covid-19 Vaccine ( season) Covid-19 Vaccine ( season) [facility] Start: 03-30-2024 Covid-19 Vaccine ( season) Covid-19 Vaccine ( season) [facility] Start: 03-30-2024 Influ[facility] Start: 02-20-2024 End: 02-20-2024 Patient encounter procedure 02/20/2024 2:00 PM EDT Office Visit Orthopaedics [address] [place] [address] Gisella De Santiago DO [address] [place] [address] shoulder pain, bycicle incident 01/02/24 [facility] Orth[facility] Comment on above: shoulder pain, bycic le incident 01/02/24 [facility] Start: 01-15-2024 End: 01-15-2024 Patient encounter procedure 01/15/2024 2:20 PM EDT Office Visit [facility] [address] [place] [address] Shania Vieira, TUMBLING AND ROLLING SUPERVISOR.SHANK BONER [address], [place] [id number] [facility] Start: 12-30-2023 COVID-19 VACCINE (#1) COVID-19 VACCI NE (#1) [facility] Comment on above: Postponed from 06/13 (Declined at this time) Start: 12-12-2023 Lipid panel Lipid Screening [facility] Start: 09-29-2023 [facility] Start: 09-28-2023 Suicide precautions [facility] Start: 07-30-2023 Behavioral Health Screening Behavioral Health Screening [facility] Start: 07-30-2023 [facility] Start: 07-29-2023 [facility] Comment on above: Postponed from 07/30 (Declined at this time) Start: 03-30-2023 Covid-19 Vaccine ( season) Covid-19 Vaccine ( season) [facility] Start: 03-30-2023 Influenza vaccination [facility] Start: 12-29-2022 End: 02-28-2023 SYPHILIS TOTAL W/REFLEX SYPHILIS TOTAL W/REFLEX Lab Routine Exposure to STD Expected: 12/29/2022, Expires: 02/28/2023 [facility] Work Phone: Comment on above: Expected: 12/29/2022 , Expires: 02/28/2023 Start: 07-30-2022 DEPRESSION ASSESSMENT DEPRESSION ASS ESSMENT [facility] Start: 03-30-2022 Influenza vaccination [facility] Start: 08-24-2021 Adult depression screening assessment DEPRESSION SCREENING [facility] Start: 11-11-2020 Urine microalbumin profile [facility] Start: 03-30-2019 Influenza vaccination Flu vaccine (# 1) [place], [place] Start: 12-12-2007 Pneumococcal vaccination Pneumococcal Vaccine (1 of 2 - PCV) [facility] Start: 12-12-2007 Urine microalbumin profile DTAP,TDAP,TD (1 - Tdap) [facility] Start: 2006 Anxiety Screening Anxiety Screening [facility] Start: 2006 Depression Screening Depression Scre ening [facility] Start: 2006 HEPATITIS C SCREENING HEPATITIS C [facility] Start: 2006 Hepatitis C screening Hepatitis C [facility] Start: 2006 HIV SCREENING HIV SCREENING [facility] Start: 2006 HIV screening HIV Screening [facility] Start: 1994 PNEUMOCOCCAL (1 - PCV) PNEUMOCOCCAL (1 - PCV) [facility] Start: 1994 Pneumococcal vaccination [facility] Start: 1993 COVID-19 VACCINE (#1) COVID-19 VACCI NE (#1) [facility] Start: 06-13-1989 COVID-19 VACCINE (#1) COVID-19 VACCI NE (#1) [facility] Start: 1988 HEPATITIS B (1 of 3 - 3-dose series) HEPATITIS B (1 of 3 - 3-dose series) [facility] Chlamydia trachomatis+Neisseria gonorrhoeae DNA [Presence] in Urine by CARLOS with probe detection GC/CHLAMYDIA AMPLIF, URINE Microbiology Routine Exposure to STD 12/29/2022 5:06 PM EDT [facility] Work Phone: Patient Education ED Cellulitis [facility] Work Phone: Patient referral [facility] Work Phone: T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 Records Department [address] [place] [address] Emergency Department Summary 01/07/25 MR#: [id number] Acct: [id number] Name: GABRIELA VIDAL Jr. Rep #:[id number] : 1990 34 From: Stephan Burk MD [...] Shania Vieira NP Referrals: Shania Vieira NP, DATA COMMUNICATIONS SOFTWARE CONSULTANT-C [Primary Care Provider] - 3-5 Days if not improving Activity Restrictions/Additional Instructions: Take the antibiotic Augmentin 1 pill twice a day till gone. Motrin for pain and swelling and Tylenol for pain. Ice and elevate. Follow-up or return if getting worse. Are not improving. Print Language: Tuvaluan Disposition Disposition: Home, Self Care What to do if you have Problems For any increased pain, shortness of breath, bleeding, nausea or vomiting, chestpain, or any unexpected problems, contact your Primary Care Provider. Call [employer] Registry ([phone]) or report to the closest Emergency Room. Call 911 if necessary. 01/07/25 8136 <Electronically signed by Stephan Burk MD> Cosigner Signature (if applicable): CC: DATA COMMUNICATIONS SOFTWARE CONSULTANTDioni Vieira ~ Signed [facility] Work Phone: Evaluation note* Diagnosis Dysuria- Primary Exposure to STD Contact with or exposure to other communicable diseases documented in this encounter [facility] note* Diagnosis Pain- Primary Generalized pain documented in this encounter [facility] note* Diagnosis Cellulitis of right lower leg- Primary Cellulitis and abscess of leg, except foot Itching Unspecified pruritic disorder documented in this encounter [facility] noteNo assessment information availableWShelby Memorial Hospital Work Phone: Evaluation note* Diagnosis Schizoaffective disorder, unspecified type (HCC)- Primary Adult ADHD Attention deficit disorder with hyperactivity Auditory hallucinations Hallucinations Acute psychosis (HCC) Unspecified psychosis Marijuana use Cannabis abuse, unspecified Financial difficulties Inadequate material resources Acute pain of left shoulder Living in temporary quarters Other specified housing or economic circumstances documented in this encounter [facility] note* Diagnosis Acute pain of left shoulder- Primary Injury of left shoulder, initial encounter documented in this encounter [facility] note* Diagnosis Pain Generalized pain [facility] Additional Instructions Take the antibiotic Augmentin 1 pill twice a day till gone. Motrin for pain and swelling and Tylenol for pain. Ice and elevate. Follow-up or return if getting worse. Are not improving.[facility] Work Phone: Reason for referral (narrative)* Diagnostic Procedure Only (Routine) - Authorized Specialty Diagnoses / Procedures Referred By Sarahiac julián Referred To Contact XR IMAGING Diagnoses Pain Procedures XR SHOULDER GENERAL 3V OR MORE AP/TRUE AP/OTHER LEFT RADEX SHOULDER COMPLETE MINIMUM 2 VIEWS Humera Harper APRN.CNP [address] [place] [address] Xr Imaging Referral ID Status Reason Start Date Expiration Date Visits Requested Visits Authorized [id number] Authorized Auto-Generat ed Referral 01/18/2023 02/17/2024 1 1 * Diagnostic Procedure Only (Routine) - Authorized Specialty Diagnoses / Procedures Referred By Contac t Referred To Contact XR IMAGING Diagnoses Pain Procedures XR SHOULDER GENERAL 3V OR MORE AP/TRUE AP/OTHER RIGHT RADEX SHOULDER COMPLETE MINIMUM 2 VIEWS Humera Harper APRN.SHANK BONER [address] [place] [address] Xr Imaging Referral ID Status Reason Start Date Expiration Date Visits Requested Visits Authorized [id number] Authorized Auto-Generat ed Referral 01/18/2023 02/17/2024 1 1 [facility] for referral (narrative)* Diagnostic Procedure Only (Routine) - Closed Specialty Diagnoses / Procedures Referred By Contac t Referred To Contact XR IMAGING Diagnoses Pain Procedures XR SHOULDER GENERAL 3V OR MORE AP/TRUE AP/OTHER LEFT RADEX SHOULDER COMPLETE MINIMUM 2 VIEWS Humera Harper APRN.SHANK BONER [address] [place] [id number] [place] [address] Referral ID Status Reason Start Date Expiration Date V isits Requested Visits Authorized [id number] Closed Auto-Generate d Referral 01/18/2023 02/17/2024 1 1 * Diagnostic Procedure Only (Routine) - Closed Specialty Diagnoses / Procedures Referred By Contac t Referred To Contact XR IMAGING Diagnoses Pain Procedures XR SHOULDER GENERAL 3V OR MORE AP/TRUE AP/OTHER RIGHT RADEX SHOULDER COMPLETE MINIMUM 2 VIEWS Humera Harper APRN.SHANK BONER [address] [place] [address] [place] [address] Referral ID Status Reason Start Date Expiration Date V isits Requested Visits Authorized [id number] Closed Auto-Generate d Referral 01/18/2023 02/17/2024 1 1 [facility] for referral (narrative)No reason for referral information [facility] Work Phone: Summary Purpose Family History Relationship Condition Age at Onset Recorded Date/T geo mother Kidney disorder Unknown father Malignant neoplasm Unknown Advance Directives Documents on File Type Date Recorded Patient 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 Associate Expl anation Advance Directive(s) 01/03/2022 12:25 PM Advance Directive(s) 01/02/2022 12:48 PM Advance Directive(s) 12/13/2021 3:32 PM Advance Directive(s) 11/07/2020 9:17 PM Advance Directive(s) 05/17/2020 5:11 PM Advance Directive(s) 02/02/2020 1:12 PM Advance Directive(s) 06/05/2017 8:55 AM Advance Directive(s) 05/23/2017 8:42 AM Advance Directive Response Recorded Date/ Time Living Will No September 28, 2023 6:09pm Power of Ladies' Locker Room Attendant No September 27 6:09pm Advance Directive Response Recorded Date/ Time Do you have a Healthcare Power of Ladies' Locker Room Attendant? No January 07, 2025 8:41am Advance Directive Response Recorded Date/ Time Do you have a Healthcare Power of Ladies' Locker Room Attendant? No January 07, 2025 8:41am Do you have a Healthcare Power of Ladies' Locker Room Attendant? No January 21, 2025 5:05pm Discharge Instructions * Attachments The following attachments cannot be sent through Care Everywhere. * Wound Check ([place]) documented in this encounter Assessments Diagnosis Encounter [...] quarters Procedures CONSULT TO SOCIAL WORK AG (TRAINING REPRESENTATIVE) Shania Vieira, TUMBLING AND ROLLING SUPERVISOR.SHANK BONER [address] [place] [address] Referral ID Status Reason Start Date Expiration Date Visits Requested Visits Authorized [id number] Ref Not Required PCP Requested Referral 01/15/2024 04/14/2024 3 3 Specialty Diagnoses / Procedures Referred By Briana gallego Referred To Contact Orthopedics / [facility] DEPARTMENT Diagnoses Acute pain of left shoulder Injury of left shoulder, initial encounter Procedures CONSULT TO ORTHOPAEDICS OFFICE/OUTPATIENT CARE ONE AT [facility] 60 MINUTES Shania Vieira APRN.SHANK BONER [address] [place] [address] Angel Vaz MD [address] [address] Referral ID Status Reason Start Date Expiration Date Visits Requested Visits Authorized [id number] Authorized PCP Requested Referral 01/28/2024 01/27/2025 1 1 Additional Source Comments (unrecognized sect ion and content) No Status Records FoundNo Status Records FoundNo Status Records FoundNo Status Records FoundNo Status Records FoundNo Status Records FoundNo Status Records FoundNo Status Records Found INFORMATION SOURCE (unrecogn ized section and content) DATE CREATED AUTHOR 02/09/2018 [facility] DATE CREATED AUTHOR AUTHOR'S ORGANIZ ATION 01/07/2021 [facility] DATE CREATED AUTHOR AUTHOR'S ORGANIZ ATION 01/07/2022 [facility] DATE CREATED AUTHOR AUTHOR'S ORGANIZ ATION 01/30/2023 [facility] DATE CREATED AUTHOR AUTHOR'S ORGANIZ ATION 02/06/2023 [facility] DATE CREATED AUTHOR AUTHOR'S ORGANIZ ATION 06/03/2023 [facility] DATE CREATED AUTHOR AUTHOR'S ORGANIZ ATION 01/09/2025 [facility] DATE CREATED AUTHOR AUTHOR'S ORGANIZ ATION 01/14/2025 [facility] Reason for Visit (unrecogniz ed section and content) Reason Comments Wound Check Reason Onset Date Comments ED Follow Up 08/24/2022 [place] ED discharg e 08/21/2022 ED outreach Reason Comments STD Wants to be checked for STD . GIRL called and said she had gonorrhea and jazmine. Feels tight clamminess per. Pt. And itches. X 1 month Reason Comments Results Reason Onset Date Comments ED outreach 04/11/2023 ED outreach [place] 04/07/2023 Reason Comments Rash Bilateral legs x 1 w eeks. Hurts Leg Pain X 1 week. Bilateral Reason Onset Date Comments ED Outreach 07/03/2023 [place] [facility] 07/01/23 Reason Onset Date Comments ed outreach 10/02/2023 Ed outreach [id number] Reason Comments Appointment Reason Comments Establish Care Reason Comments Consult Reason Comments Radio Gen RMP Specialty Diagnoses / Procedures Referred By Contac t Referred To Contact XR IMAGING Diagnoses Pain Procedures XR SHOULDER GENERAL 3V OR MORE AP/TRUE AP/OTHER LEFT RADEX SHOULDER COMPLETE MINIMUM 2 VIEWS Humera Harper, TUMBLING AND ROLLING SUPERVISOR.SHANK BONER [address] [place] [address] Xr Imaging [place] [address] Referral ID Status Reason Start Date Expiration Date V isits Requested Visits Authorized [id number] Closed Auto-Generate d Referral 01/18/2023 02/17/2024 1 1 Reason Onset Date Comments Transition Of Care 04/21/2024 Pt was admitt ed to [facility] on 04/18/2024 for ISABELLA, COVID-19. Pt was d/c on 04/19/2024 Reason Onset Date Comments ED Follow-up 01/07/2025 [facility] 2024 Source Comments (unrecognize d section and content) In the event this informatio n is protected by the Federal Confidentiality of Alcohol and Drug Abuse Patient Records regulations: The Federal rules restrict any use of the information to criminally investigate or prosecute any alcohol or drug abuse patient.[facility] the event this information is protected by the Federal Confidentiality of Alcohol and Drug Abuse Patient Records regulations: The Federal rules restrict any use of the information to criminally investigate or prosecute any alcohol or drug abuse patient.[facility] the event this information is protected by the Federal Confidentiality of Alcohol and Drug Abuse Patient Records regulations: The Federal rules restrict any use of the information to criminally investigate or prosecute any alcohol or drug abuse patient.[facility] the event this information is protected by the Federal Confidentiality of Alcohol and Drug Abuse Patient Records regulations: The Federal rules restrict any use of the information to criminally investigate or prosecute any alcohol or drug abuse patient.[facility] the event this information is protected by the Federal Confidentiality of Alcohol and Drug Abuse Patient Records regulations: The Federal rules restrict any use of the information to criminally investigate or prosecute any alcohol or drug abuse patient.[facility] the event this information is protected by the Federal Confidentiality of Alcohol and Drug Abuse Patient Records regulations: The Federal rules restrict any use of the information to criminally investigate or prosecute any alcohol or drug abuse patient.[facility] the event this information is protected by the Federal Confidentiality of Alcohol and Drug Abuse Patient Records regulations: The Federal rules restrict any use of the information to criminally investigate or prosecute any alcohol or drug abuse patient.[facility] the event this information is protected by the Federal Confidentiality of Alcohol and Drug Abuse Patient Records regulations: The Federal rules restrict any use of the information to criminally investigate or prosecute any alcohol or drug abuse patient.[facility] the event this information is protected by the Federal Confidentiality of Alcohol and Drug Abuse Patient Records regulations: The Federal rules restrict any use of the information to criminally investigate or prosecute any alcohol or drug abuse patient.[facility] the event this information is protected by the Federal Confidentiality of Alcohol and Drug Abuse Patient Records regulations: The Federal rules restrict any use of the information to criminally investigate or prosecute any alcohol or drug abuse patient.[facility] the event this information is protected by the Federal Confidentiality of Alcohol and Drug Abuse Patient Records regulations: The Federal rules restrict any use of the information to criminally investigate or prosecute any alcohol or drug abuse patient.[facility] the event this information is protected by the Federal Confidentiality of Alcohol and Drug Abuse Patient Records regulations: The Federal rules restrict any use of the information to criminally investigate or prosecute any alcohol or drug abuse patient.[facility] the event this information is protected by the Federal Confidentiality of Alcohol and Drug Abuse Patient Records regulations: The Federal rules restrict any use of the information to criminally investigate or prosecute any alcohol or drug abuse patient.[facility] the event this information is protected by the Federal Confidentiality of Alcohol and Drug Abuse Patient Records regulations: The Federal rules restrict any use of the information to criminally investigate or prosecute any alcohol or drug abuse patient.[facility] the event this information is protected by the Federal Confidentiality of Alcohol and Drug Abuse Patient Records regulations: The Federal rules restrict any use of the information to criminally investigate or prosecute any alcohol or drug abuse patient.[facility] the event this information is protected by the Federal Confidentiality of Alcohol and Drug Abuse Patient Records regulations: The Federal rules restrict any use of the information to criminally investigate or prosecute any alcohol or drug abuse patient.[facility] the event this information is protected by the Federal Confidentiality of Alcohol and Drug Abuse Patient Records regulations: The Federal rules restrict any use of the information to criminally investigate or prosecute any alcohol or drug abuse patient.[facility] Care Teams (unrecognized sec tion and content) Hospice Home Health Aide Relationship Specialty Start Date End Date Shania Vieira, APOORVA.[facility] [address] [place] [address] PCP - General Family Practice 05/17/20 Hospice Home Health Aide Relationship Specialty Start Date End Date Shania Vieira, TUMBLING AND ROLLING SUPERVISOR.SHANK BONER [address] [place] [address] PCP - General Family Medicine 05/17/20 Hospice Home Health Aide Relationship Specialty Start Date End Date Shania Vieira, TUMBLING AND ROLLING SUPERVISOR.SHANK BONER [address] [place] [address] PCP - General Family Medicine 05/17/20 Hospice Home Health Aide Relationship Specialty Start Date End Date Shania Vieira, TUMBLING AND ROLLING SUPERVISOR.SHANK BONER [address] [place] [address] PCP - General Family Medicine 05/17/20 Hospice Home Health Aide Relationship Specialty Start Date End Date Shania Vieira, TUMBLING AND ROLLING SUPERVISOR.SHANK BONER [address] [place] [address] PCP - General Family Medicine 05/17/20 Hospice Home Health Aide Relationship Specialty Start Date End Date Shania Vieira, TUMBLING AND ROLLING SUPERVISOR.SHANK BONER [address] [place] [address] PCP - General Family Medicine 05/17/20 Hospice Home Health Aide Relationship Specialty Start Date End Date Shania Vieira, TUMBLING AND ROLLING SUPERVISOR.SHANK BONER [address] [place] [address] PCP - General Family Medicine 05/17/20 Hospice Home Health Aide Relationship Specialty Start Date End Date Shania Vieira, TUMBLING AND ROLLING SUPERVISOR.SHANK BONER [address] [place] [address] PCP - General Family Medicine 05/17/20 Hospice Home Health Aide Relationship Specialty Start Date End Date Shania Vieira, TUMBLING AND ROLLING SUPERVISOR.SHANK BONER [address] [place], [place] [id number] PCP - General Family Medicine 05/17/20 Team Status: Active Member Role Status Dates No Primary Care Physician Primary Care Provider Active Team Status: Inactive Member Role Status Dates Dr. Jose E Meier DO Emergency Provider Active No Primary Care Physician Primary Care Provider Active Hospice Home Health Aide Relationship Specialty Start Date End Date Shania Vieira, TUMBLING AND ROLLING SUPERVISOR.SHANK BONER [address] [place] [address] PCP - General Family Medicine 01/15/24 Hospice Home Health Aide Relationship Specialty Start Date End Date Shania Vieira TUMBLING AND ROLLING SUPERVISOR.SHANK BONER [address] [place], [place] [id number] PCP - General Family Medicine 01/15/24 Hospice Home Health Aide Relationship Specialty Start Date End Date Shania Vieira, TUMBLING AND ROLLING SUPERVISOR.SHANK BONER [address] [place], [place] [id number] PCP - General Family Medicine 05/17/20 12/16/23 Hospice Home Health Aide Relationship Specialty Start Date End Date Shania Vieira, TUMBLING AND ROLLING SUPERVISOR.SHANK BONER [address] [place] [address] PCP - General Family Medicine 01/15/24 Team Status: Active Member Role Status Dates Shania Vieira DATA COMMUNICATIONS SOFTWARE CONSULTANT, DATA COMMUNICATIONS SOFTWARE CONSULTANT-C Primary Care Provider Active Team Status: Inactive Member Role Status Dates Shania Vieira DATA COMMUNICATIONS SOFTWARE CONSULTANT, DATA COMMUNICATIONS SOFTWARE CONSULTANT-C Primary Care Provider Active Start: January 07, 2025 End: January 07, 2025 Dr. Stephan Burk MD Emergency Provider Active S tart: January 07, 2025 End: January 07, 2025 Hospice Home Health Aide Relationship Specialty Start Date End Date Shania Vieira TUMBLING AND ROLLING SUPERVISOR.SHANK BONER [address] [place] [address] PCP - General Family Medicine 01/15/24 Team Status: Inactive Member Role Status Dates Shania Vieira DATA COMMUNICATIONS SOFTWARE CONSULTANT, DATA COMMUNICATIONS SOFTWARE CONSULTANT-C Primary Care Provider Active Start: January 07, 2025 End: January 07, 2025 Dr. Stephan Burk MD Attending Provider Active S tart: January 07, 2025 End: January 07, 2025 Dr. Stephan Burk MD Emergency Provider Active S tart: January 07, 2025 End: January 07, 2025 Team Status: Active Member Role Status Dates Shania Vieira DATA COMMUNICATIONS SOFTWARE CONSULTANT, DATA COMMUNICATIONS SOFTWARE CONSULTANT-C Primary Care Provider Active Start: January 21, [...] BE BASED ON THE PRIMARY CLINICAL RECORDS. [facility] [employer] [facility]. provides no warranty or guarantee of the accuracy or completeness of information in this document.
[2025-01-22 07:53] LABS: Absolute Lymphocyte Count 1.23 X10^3/uL (0.83-4.51); Absolute Neutrophil Count 9.9 X10^3/uL (2.0-7.7); Basophil# 0.03 X10^3/uL; Basophil% 0.2 % (0-1); Eosinophil# 0.18 X10^3/uL; Eosinophils% 1.4 % (0-5); Hematocrit 38.8 % (40-54); Hemoglobin 13.2 g/dL (13.0-16.5); Lymphocyte # 1.23 X10^3/ul (0.83-4.51); Lymphocyte % 9.7 % (19-41); Mean Corpuscular Hgb 29.7 pg (27.0-32.0); Mean Corpuscular Volume 87.2 fL (80-94); Mean Platelet Vol. 10.6 fl (6.2-12.0); Monocyte# 1.29 X10^3/uL; Monocyte% 10.2 % (0-10); NRBC Flagged by Analyzer 0 % (0-5); Neutrophil # 9.85 X10^3/uL (2.7-7.7); Neutrophil % 77.9 % (47-70); Platelet Count 185 K/mm3 (150-450); RBC Distribution Width CV 12.1 % (11.6-14.6); RBC Distribution Width SD 39.1 fl (35.1-43.9); Red Blood Count 4.45 M/mm3 (4.6-6.2); White Blood Count 12.7 K/mm3 (4.4-11.0)
--- NOTE | 2025-01-22 08:10 | PCM.HP.STD ---
HPI - General General Date of Admission: 01/21/25 Chief Complaint: Left lower quadrant abdominal pain/diverticulitis HPI Narrative GABRIELA CLAY, is a 34 M who presented last evening to the emergency department with a several day history of left lower quadrant pain. He has a history of schizophrenia, chronic kidney disease, ADHD, and polysubstance abuse. Patient stated that he purchased a new e-bike recently and was riding quite a bit over the past several days. He initially thought his pain may have been musculoskeletal. 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 He states that this pain has been present over the last several days and has been mostly in the left lower quadrant. He does admit to some cramping. He denies fevers or chills. Due to the fact that this pain persisted, he presented to the emergency room. He was seen evaluate by the ER staff. He was found to have a white blood cell count of 17,000. CT scan showed evidence of diverticulitis with microperforation and fairly extensive inflammatory reaction. Clinically he appeared nontoxic and stable and was subsequently admitted for antibiotic treatment. This morning he states that he is actually feeling a little bit better. His white blood cell count has gone down to 12,000. No overnight fevers or tachycardia PFSH Medical History ADHD Schizophrenia Mood disorder Anxiety and depression CKD (chronic kidney disease), stage II Polysubstance abuse Tobacco use Home Medications ?Medication ?Instructions ?Recorded ?Last Taken ?Type NK 01/21/25 Unknown History Allergy/AdvReac Type Severity Reaction Status Date / Time No Known Allergies Allergy Verified 01/21/25 16:10 Family History Mother Kidney disease Father Cancer Surgical History History of dental surgery History of tonsillectomy and adenoidectomy Social History household members: other details: Lives with his uncle. Smoking Status: Current every day smoker tobacco type: cigarettes alcohol intake: never substance use type: former substance user Date of last use: Fentanyl, Methamphetamines per prior records. Vital Signs Vital Signs Vital Signs: 01/21/25 16:05 01/21/25 18:05 01/21/25 20:00 Temperature 97.5 F L Temperature Source Temporal Pulse Rate 134 H 99 74 Respiratory Rate 18 18 18 Respiratory Effort Respiratory Depth Respiratory Pattern Blood Pressure 140/83 H 136/88 H 136/76 H Blood Pressure Mean 102 104 96 Blood Pressure Source Blood Pressure Position Blood Pressure Location Pulse Ox 98 95 99 Oxygen Delivery Method Room Air Room Air 01/21/25 21:53 01/21/25 21:53 01/21/25 23:03 Temperature 100 F H 100 F H 98.1 F Temperature Source Oral Temporal Pulse Rate 118 H 118 H 112 H Respiratory Rate 18 18 16 Respiratory Effort Respiratory Depth Respiratory Pattern Blood Pressure 130/83 H 130/83 H 111/70 Blood Pressure Mean 98 98 83 Blood Pressure Source Monitor Blood Pressure Position Semi-Fowlers Blood Pressure Location Left Forearm Pulse Ox 100 100 100 Oxygen Delivery Method Room Air Room Air 01/21/25 23:19 01/22/25 05:15 Temperature 98 F Temperature Source Temporal Pulse Rate 81 Respiratory Rate 16 Respiratory Effort Normal Non-Labored Respiratory Depth Normal Respiratory Pattern Normal Blood Pressure 134/82 H Blood Pressure Mean 99 Blood Pressure Source Monitor Blood Pressure Position Semi-Fowlers Blood Pressure Location Right Arm Pulse Ox 100 Oxygen Delivery Method Room Air Room Air Weight Weight: 182 lb 12.211 oz Body Mass Index (BMI) 26.2 Physical Exam Narrative He is alert and oriented x 3. He is in no acute distress. Head is normocephalic and atraumatic. Pupils are equal round and reactive to light. Abdomen is soft. Mild distention. He does have moderate tenderness to palpation in the left lower quadrant. No rebound or guarding Results Lab / Micro Data 01/22/25 07:35 01/21/25 19:10 Labs: Laboratory Results - last 24 hr 01/21/25 19:10: WBC 17.8 H, RBC 4.82, Hgb 14.5, Hct 42.2, MCV 87.6, MCH 30.1, MCHC 34.4, RDW Std Deviation 39.0, RDW Coeff of Thomas 12.1, Plt Count 193, MPV 10.6, Immature Gran % (Auto) 0.700, Neut % (Auto) 80.6 H, Lymph % (Auto) 9.1 L, [place] % (Auto) 9.0, Eos % (Auto) 0.3, Baso % (Auto) 0.3, Absolute Neuts (auto) 14.4 H, Absolute Lymphs (auto) 1.62, Nucleated RBC % 0, Platelet Estimate ADEQUATE, Sodium 133, Potassium 4.1, Chloride 97 L, Carbon Dioxide 24.9, Anion Gap 11, BUN 10, Creatinine 1.22 H, Estim Creat Clear Calc 83.71, Est GFR (MDRD) Non-Af 79, BUN/Creatinine Ratio 7.9 L, Glucose 104 H, Calcium 9.2, Magnesium 2.2, Total Bilirubin 1.40 H, AST 13, ALT 13, Alkaline Phosphatase 79, Total Creatine Kinase 82, Total Protein 7.1, Albumin 3.8, Globulin 3.3, Albumin/Globulin Ratio 1.2, Urine Color Yellow, Urine Clarity Cloudy, Urine pH 6.0, Ur Specific Mobile 1.020, Urine Protein 30 H, Urine Glucose (UA) Normal, Urine Ketones 5 H, Urine Occult Blood 10 H, Urine Nitrite Negative, Urine Bilirubin Negative, Urine Urobilinogen 1 H, Ur Leukocyte Esterase Negative, Urine RBC 0-5 SEEN, Urine WBC 0-5 SEEN, Ur Squamous Epith Cells 0-5 SEEN, Urine Bacteria 0 SEEN, Urine Mucus 0 SEEN 01/22/25 07:35: WBC 12.7 H, RBC 4.45 L, Hgb 13.2, Hct 38.8 L, MCV 87.2, MCH 29.7, MCHC 34.0, RDW Std Deviation 39.1, RDW Coeff of Thomas 12.1, Plt Count 185, MPV 10.6, Immature Gran % (Auto) 0.600, Neut % (Auto) 77.9 H, Lymph % (Auto) 9.7 L, [place] % (Auto) 10.2 H, Eos % (Auto) 1.4, Baso % (Auto) 0.2, Absolute Neuts (auto) 9.9 H, Absolute Lymphs (auto) 1.23, Nucleated RBC % 0 Rhythm Strip Rhythm Strip: Sinus Tach Rate: 119 Ectopy: None Imaging Radiology Impression Abdomen/Pelvis CT 01/21/25 19:42 IMPRESSION: Acute sigmoid colon diverticulitis with perforation and extensive surrounding inflammation and fluid. Free air from perforation is noted best seen on series 2, image 106. No formed abscess at this time. No bowel obstruction. Thickened urinary bladder wall likely reactive. No fistulization is noted at this time. Dr. Quinn was notified by Minh Damico at 9:25 pm EST on 01/21/2025. Reading Location: [id number] Assessment & Plan Assessment/Plan (1) Diverticulitis of colon with perforation: PLAN: Plan The patient is a 34-year-old male with sigmoid diverticulitis with microperforation. Clinically he seems to be stable and does not require emergent intervention. I am recommending keeping him n.p.o. He has been placed on IV Rocephin and Flagyl. We did discuss the possibility that his diverticulitis may not improve with antibiotic therapy and surgery might be a possibility. If surgery was performed, this would likely result in a colostomy. He understands this. At the present time he is stable and I feel that initial antibiotic therapy is appropriate. Will continue to watch closely. Patient is agreeable to this plan. Charges/Coding Visit Charges Inpatient E&M: 92406 Init Hosp L3
[2025-01-22 08:23] VITALS: BP 123/72; PULSE 76; RESP 17; TEMP 36.6; O2SAT 97
[2025-01-22 08:32] LABS: Albumin, Serum 3.2 g/dL (3.5-5.0); BUN 9 mg/dL (4-19); BUN/Creat Ratio 9.2 RATIO (10-20); Creatinine, Serum 0.95 mg/dL (0.70-1.20); EST Glomerular Filtration Rate 106 (>60); Estimated Creatinine Clearance 110.99 ml/min (50-250); Glucose 109 mg/dL (70-99); Protein, Total 6.2 g/dL (5.9-8.4)
[2025-01-22 08:33] LABS: ALB/GLOB Ratio 1.1 RATIO (0.9-2.4); AST(SGOT) 15 U/L (<=37); Alanine Aminotransfer ALT/SGPT 13 U/L (<=46); Alkaline Phosphatase 119 U/L (40-129); Anion Gap 11 (5-15); Calcium,Total 8.7 mg/dL (7.6-11.0); Carbon Dioxide 22.6 mmol/L (21.0-32.0); Chloride 105 mmol/L (98-108); Potassium 3.6 mmol/L (3.3-5.1); Sodium Level 138 mmol/L (133-145); Total Bilirubin 0.75 mg/dL (0.00-1.30)
[2025-01-22] MEDS: Ceftriaxone 2 GM in 0.9% Normal Saline (50mL MB+) 50 ML IV (09:37)
[2025-01-22] MEDS: Morphine 2 MG/ML Syringe IV (09:40)
--- NOTE | 2025-01-22 11:52 | CASEMGMT ---
Social Work- SW met with pt to complete SDOH assessment. Pt sitting in bed, drawing and agreeable to meeting. 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 Pt reports that he now lives with his uncle in a mobile home that is ripped apart with no floors. Pt reports the mobile home has mice and smells of dog urine and feces. Pt reports that he will not go stay in a usp. Pt reports that mom lives in [place] & although he spent all of October visiting her, it is not an option to live with her. Pt would like housing resources; SW provided. Pt reports that he uses an e-bike for transportation and can travel 80 miles on batteries. Pt has customized bike with racks to hold groceries. Pt plans to begin jennifer again and will use his e-bike for transportation to job. 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 Pt reports that he receives $292/month in food stamps. Pt requested food resources; SW provided. Pt shared that he receives counseling services through [facility]. Pt reports psychiatrist took pt off of medications because he was doing well. Pt shared that he had a case management specialist, Bhupinder, but is uncertain if he is still active with case management as pt reports missing a few appointments. Pt does not feel he needs any additional mental health or substance use resources. Pt reports no other needs at this time. ALISSON Ruiz
--- NOTE | 2025-01-22 11:52 | CASEMGMT ---
Social Work- SW met with pt to complete SDOH assessment. Pt sitting in bed, drawing and agreeable to meeting. 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 Pt reports that he now lives with his uncle in a mobile home that is ripped apart with no floors. Pt reports the mobile home has mice and smells of dog urine and feces. Pt reports that he will not go stay in a jail. Pt reports that mom lives in [place] & although he spent all of October visiting her, it is not an option to live with her. Pt would like housing resources; SW provided. Pt reports that he uses an e-bike for transportation and can travel 80 miles on batteries. Pt has customized bike with racks to hold groceries. Pt plans to begin jennifer again and will use his e-bike for transportation to job. 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 Pt reports that he receives $292/month in food stamps. Pt requested food resources; SW provided. Pt shared that he receives counseling services through [facility]. Pt reports psychiatrist took pt off of medications because he was doing well. Pt shared that he had a case coordinator, Bhupinder, but is uncertain if he is still active with case management as pt reports missing a few appointments. Pt does not feel he needs any additional mental health or substance use resources. Pt reports no other needs at this time. ALISSON Ruiz
[2025-01-22] MEDS: 0.9% Saline Lock 10 ML Syringe IV (12:35)
[2025-01-22 14:11] VITALS: BP 107/71; PULSE 73; RESP 16; TEMP 36.9; O2SAT 100
[2025-01-22] MEDS: oxyCODONE 5 MG Tablet 10 MG PO (14:15)
--- NOTE | 2025-01-22 14:24 | PCM.PN.BLA ---
Progress Note Patient seen and examined this afternoon. Patient stating his pain is improving. No fevers or chills this afternoon. Recommend continued IV antibiotics and n.p.o. Will continue to follow closely
--- NOTE | 2025-01-22 17:00 | CASEMGMT ---
Addendum entered by Klaudia Martínez 01/23/25 08:28: MUSIC PROFESSOR, Shania Vieira , listed as pt's PCP in [facility]. Addendum entered by Klaudia Martínez 01/23/25 08:17: 6/26: Strata: 2 Original Note: ANDRES CANCINO note: Medical record reviewed and patient evaluated for identification of discharge planning needs. 6 cl: 24, no PT/OT ordered, and no CM consult ordered. SW to meet w/pt for SDOH and transportation. Patient does not currently demonstrate a need for discharge planning by RN BARAK. CM will continue to be available for any discharge needs that may arise, and intervene as indicated. Junie BENAVIDES RN, CM
--- NOTE | 2025-01-22 17:00 | CASEMGMT ---
Addendum entered by Klaudia Martínez 01/23/25 08:28: MARKETING SYSTEMS MANAGER, Shania Vieira , listed as pt's PCP in [facility]. Addendum entered by Klaudia Martínez 01/23/25 08:17: 6/26: Strata: 2 Original Note: ANDRES CANCINO note: Medical record reviewed and patient evaluated for identification of discharge planning needs. 6 cl: 24, no PT/OT ordered, and no CM consult ordered. SW to meet w/pt for SDOH and transportation. Patient does not currently demonstrate a need for discharge planning by RN BARAK. CM will continue to be available for any discharge needs that may arise, and intervene as indicated. Junie BENAVIDES RN, CM
[2025-01-22 21:00] VITALS: BP 127/87; PULSE 72; RESP 18; TEMP 36.7; O2SAT 100
[2025-01-22 21:30] VITALS: PULSE 72; RESP 18; O2SAT 100
[2025-01-23] MEDS: 0.9% Saline Lock 10 ML Syringe IV ×2 (01:07→05:10)
[2025-01-23] MEDS: Ketorolac 30 MG/ML Syringe IV ×5 (01:07→23:22)
[2025-01-23 03:00] VITALS: BP 143/89; PULSE 80; RESP 16; TEMP 36.6; O2SAT 99
[2025-01-23] MEDS: metroNIDAZOLE 500 MG/100 ML BAG 100 MG IV ×3 (05:09→20:17)
[2025-01-23] MEDS: Acetaminophen 500 MG Tablet 1000 MG PO ×3 (05:10→20:20)
[2025-01-23 06:50] LABS: Absolute Lymphocyte Count 1.06 X10^3/uL (0.83-4.51); Absolute Neutrophil Count 6.1 X10^3/uL (2.0-7.7); Basophil# 0.03 X10^3/uL; Basophil% 0.4 % (0-1); Eosinophil# 0.22 X10^3/uL; Eosinophils% 2.6 % (0-5); Hematocrit 37.5 % (40-54); Hemoglobin 12.6 g/dL (13.0-16.5); Lymphocyte # 1.06 X10^3/ul (0.83-4.51); Lymphocyte % 12.6 % (19-41); Mean Corp Hgb Conc 33.6 g/dL (32-36); Mean Corpuscular Hgb 29.5 pg (27.0-32.0); Mean Corpuscular Volume 87.8 fL (80-94); Mean Platelet Vol. 11.6 fl (6.2-12.0); Monocyte# 0.91 X10^3/uL; Monocyte% 10.9 % (0-10); NRBC Flagged by Analyzer 0 % (0-5); Neutrophil # 6.13 X10^3/uL (2.7-7.7); Neutrophil % 73.1 % (47-70); Platelet Count 204 K/mm3 (150-450); RBC Distribution Width CV 12.3 % (11.6-14.6); RBC Distribution Width SD 39.4 fl (35.1-43.9); Red Blood Count 4.27 M/mm3 (4.6-6.2); White Blood Count 8.4 K/mm3 (4.4-11.0)
[2025-01-23 08:11] VITALS: PULSE 90
[2025-01-23 08:13] VITALS: BP 134/82; PULSE 60; RESP 18; TEMP 36.6; O2SAT 100
[2025-01-23] MEDS: Ceftriaxone 2 GM in 0.9% Normal Saline (50mL MB+) 50 ML IV (10:05)
[2025-01-23] MEDS: Heparin Injection (Vial) 5,000 UNIT/ML VIAL 5000 UNIT SC ×2 (10:08→20:20)
[2025-01-23] MEDS: Dextrose 5%/0.9% NaCl 1,000 ML 110 ML IV ×2 (10:37→20:48)
[2025-01-23 14:00] VITALS: BP 120/82; PULSE 73; RESP 18; TEMP 37; O2SAT 97
--- NOTE | 2025-01-23 16:38 | PN.SURG_ITS ---
Subjective Subjective The patient states that he is doing well today. He states he is still having pain in the left lower quadrant but this pain seems to be lasting today. He denies any fevers or chills. No nausea or vomiting. He states that he is hungry and would like to eat if possible. He did have a bowel movement per nursing staff. White count continues to normalize Objective Data Objective Data Vital Signs: Vital Signs Temp Pulse Resp BP Pulse Ox O2 Del Method 98.6 F 73 18 120/82 H 97 Room Air 01/23/25 14:00 01/23/25 14:00 01/23/25 14:00 01/23/25 14:00 01/23/25 14:00 01/23/25 14:00 Oxygen Delivery Method Room Air Weight: 182 lb 12.211 oz Body Mass Index (BMI) 26.2 Intake & Output: Intake and Output for Last 24 Hours 01/21/25 01/22/25 01/23/25 23:59 23:59 23:59 Intake Total 1150 / 1150 2296.67 / 2296.67 1250.00 / 1250.00 Balance 1150 / 1150 2296.67 / 2296.67 1250.00 / 1250.00 Lab / Micro Data 01/23/25 05:53 01/22/25 07:35 Labs: Laboratory Results - last 24 hr 01/23/25 05:53: WBC 8.4, RBC 4.27 L, Hgb 12.6 L, Hct 37.5 L, MCV 87.8, MCH 29.5, MCHC 33.6, RDW Std Deviation 39.4, RDW Coeff of Thomas 12.3, Plt Count 204, MPV 11.6, Immature Gran % (Auto) 0.400, Neut % (Auto) 73.1 H, Lymph % (Auto) 12.6 L, [place] % (Auto) 10.9 H, Eos % (Auto) 2.6, Baso % (Auto) 0.4, Absolute Neuts (auto) 6.1, Absolute Lymphs (auto) 1.06, Nucleated RBC % 0 Rhythm Strip Rhythm Strip: Sinus Tach Rate: 119 Ectopy: None Social Homelessness:: Sheltered Physical Exam Narrative Patient is alert and oriented x 3. No acute distress. Abdomen is soft and nondistended. Mild to moderate tenderness to palpation just in the left lower quadrant. No rebound or guarding. This abdominal exam continues to improve in terms of pain Assessment & Plan Assessment/Plan (1) Diverticulitis of colon with perforation: PLAN: Plan Patient is a 34-year-old male admitted with left lower quadrant pain secondary to sigmoid diverticulitis with microperforation. Clinically he seems to be continuing to improve on antibiotic therapy. Recommend continued antibiotics. I am giving him the okay to begin a clear liquid diet. Anticipate a few more days of IV antibiotics followed by oral antibiotics on discharge. He will likely require colonoscopy as an outpatient in the next couple of months after resolution of current diverticulitis
--- NOTE | 2025-01-23 17:30 | CASEMGMT ---
ANDRES CANCINO note: RN CM to room. Pt resting in bed. Introduced self and role. Pt denies having any discharge needs or concerns. He lives w/his uncle, states he is independent @ baseline, and plans to ride his E-bike home once he is discharged. He would like to get any new Rx's from [facility] retail pharmacy. Snaptee updated. Junie WINTERSN ANDRES CANCINO
--- NOTE | 2025-01-23 17:30 | CASEMGMT ---
ANDRES CANCINO note: RN CM to room. Pt resting in bed. Introduced self and role. Pt denies having any discharge needs or concerns. He lives w/his uncle, states he is independent @ baseline, and plans to ride his E-bike home once he is discharged. He would like to get any new Rx's from [facility] retail pharmacy. Tail updated. Junie WINTERSN ANDRES CANCINO
[2025-01-23 20:30] VITALS: BP 148/94; PULSE 82; RESP 17; TEMP 36.9; O2SAT 100
[2025-01-24] MEDS: metroNIDAZOLE 500 MG/100 ML BAG 100 MG IV ×3 (04:56→22:36)
[2025-01-24] MEDS: Acetaminophen 500 MG Tablet 1000 MG PO ×3 (04:57→22:37)
[2025-01-24] MEDS: Ketorolac 30 MG/ML Syringe IV ×3 (04:57→18:21)
[2025-01-24 05:07] VITALS: BP 149/94; PULSE 78; RESP 16; TEMP 36.7; O2SAT 99
[2025-01-24 06:13] LABS: Absolute Neutrophil Count 5.6 X10^3/uL (2.0-7.7); Basophil# 0.02 X10^3/uL; Basophil% 0.3 % (0-1); Eosinophil# 0.21 X10^3/uL; Eosinophils% 2.7 % (0-5); Hematocrit 38.3 % (40-54); Lymphocyte % 15.6 % (19-41); Mean Corp Hgb Conc 33.9 g/dL (32-36); Mean Corpuscular Hgb 29.9 pg (27.0-32.0); Mean Platelet Vol. 11.2 fl (6.2-12.0); Monocyte# 0.69 X10^3/uL; Monocyte% 8.9 % (0-10); NRBC Flagged by Analyzer 0 % (0-5); Neutrophil # 5.56 X10^3/uL (2.7-7.7); Neutrophil % 72.1 % (47-70); Platelet Count 266 K/mm3 (150-450); RBC Distribution Width CV 12.1 % (11.6-14.6); RBC Distribution Width SD 39.5 fl (35.1-43.9); Red Blood Count 4.35 M/mm3 (4.6-6.2); White Blood Count 7.7 K/mm3 (4.4-11.0)
[2025-01-24] MEDS: Ceftriaxone 2 GM in 0.9% Normal Saline (50mL MB+) 50 ML IV (10:10)
[2025-01-24] MEDS: Dextrose 5%/0.9% NaCl 1,000 ML 110 ML IV ×2 (10:10→22:36)
[2025-01-24] MEDS: Heparin Injection (Vial) 5,000 UNIT/ML VIAL 5000 UNIT SC ×2 (10:11→22:35)
[2025-01-24 10:26] VITALS: BP 143/89; PULSE 77; RESP 18; TEMP 36.7; O2SAT 100
[2025-01-24 11:00] VITALS: O2SAT 100
--- NOTE | 2025-01-24 13:00 | PN.SURG_ITS ---
Subjective Subjective Patient was seen evaluated on rounds this morning. He denies any new issues or complaints. He states that his abdominal pain is continuing to improve. He still has pain in the left lower abdomen but this is a fraction of the pain that he presented with. He denies any fevers or chills. No nausea or vomiting. He tolerated a clear liquid diet without incident. Objective Data Objective Data Vital Signs: Vital Signs Temp Pulse Resp BP Pulse Ox O2 Del Method 98.0 F 77 18 143/89 H 100 Room Air 01/24/25 10:01/24/25 10:01/24/25 10:01/24/25 10:01/24/25 10:01/24/25 10:26 Oxygen Delivery Method Room Air Weight: 182 lb 12.211 oz Body Mass Index (BMI) 26.2 Intake & Output: Intake and Output for Last 24 Hours 01/22/25 01/23/25 01/24/25 23:59 23:59 23:59 Intake Total 2296.67 / 2296.67 2350.00 / 3550.00 3300 / 3300 Balance 2296.67 / 2296.67 2350.00 / 3550.00 3300 / 3300 Lab / Micro Data 01/24/25 05:20 01/22/25 07:35 Labs: Laboratory Results - last 24 hr 01/24/25 05:20: WBC 7.7, RBC 4.35 L, Hgb 13.0, Hct 38.3 L, MCV 88.0, MCH 29.9, MCHC 33.9, RDW Std Deviation 39.5, RDW Coeff of Thomas 12.1, Plt Count 266, MPV 11.2, Immature Gran % (Auto) 0.400, Neut % (Auto) 72.1 H, Lymph % (Auto) 15.6 L, [place] % (Auto) 8.9, Eos % (Auto) 2.7, Baso % (Auto) 0.3, Absolute Neuts (auto) 5.6, Absolute Lymphs (auto) 1.20, Nucleated RBC % 0 Rhythm Strip Rhythm Strip: Sinus Tach Rate: 119 Ectopy: None Social Homelessness:: Sheltered Physical Exam Narrative He is alert and oriented x 3. He is in no acute distress. Abdomen is soft and nondistended. There is mild tenderness to palpation in the left lower quadrant. No rebound or guarding. Assessment & Plan Assessment/Plan (1) Diverticulitis of colon with perforation: PLAN: Plan The patient is a 34-year-old male with sigmoid diverticulitis with microperforation. No previous history of diverticulitis. He did reportedly have colitis after having COVID years ago. He has never had a colonoscopy. Clinically he continues to improve. His white count has quickly returned to normal and his exam improves each day. Diet was advanced to a full liquid diet today I would recommend at least another day of IV antibiotics Consider discharge home in the next couple of days with oral antibiotics Would recommend colonoscopy in about 8 weeks after full resolution of symptoms. Would like to see patient as an outpatient in a couple of weeks for reevaluation and to consider possible repeat CT scan Charges/Coding Visit Charges Inpatient E&M: 80967 Subs Hosp L3
[2025-01-24 13:41] VITALS: BP 136/89; PULSE 72; RESP 18; TEMP 36.7; O2SAT 100
[2025-01-24] MEDS: 0.9% Saline Lock 10 ML Syringe IV (18:21)
[2025-01-24 20:00] VITALS: BP 146/91; PULSE 80; RESP 18; TEMP 36.9; O2SAT 99
[2025-01-25] MEDS: Ketorolac 30 MG/ML Syringe IV ×4 (00:54→23:35)
[2025-01-25 02:00] VITALS: BP 151/98; PULSE 78; RESP 16; TEMP 36.7; O2SAT 100
[2025-01-25] MEDS: Acetaminophen 500 MG Tablet 1000 MG PO ×3 (06:23→21:02)
[2025-01-25] MEDS: metroNIDAZOLE 500 MG/100 ML BAG 100 MG IV ×3 (06:24→21:01)
[2025-01-25 08:38] VITALS: BP 143/96; PULSE 74; RESP 16; TEMP 36.9; O2SAT 100
[2025-01-25 08:46] VITALS: O2SAT 100
[2025-01-25] MEDS: Ceftriaxone 2 GM in 0.9% Normal Saline (50mL MB+) 50 ML IV (10:48)
[2025-01-25] MEDS: Heparin Injection (Vial) 5,000 UNIT/ML VIAL 5000 UNIT SC ×2 (10:49→21:01)
--- NOTE | 2025-01-25 10:55 | PCM.PN.SRG ---
Subjective Subjective Patient seen and evaluated on rounds this morning. He has no new issues or complaints. He states abdominal pain continues to improve Objective Data Objective Data Vital Signs: Vital Signs Temp Pulse Resp BP Pulse Ox O2 Del Method 98.5 F 74 16 143/96 H 100 Room Air 01/25/25 08:38 01/25/25 08:38 01/25/25 08:38 01/25/25 08:38 01/25/25 08:46 01/25/25 08:46 Oxygen Delivery Method Room Air Weight: 182 lb 12.211 oz Body Mass Index (BMI) 26.2 Intake & Output: Intake and Output for Last 24 Hours 01/23/25 01/24/25 01/25/25 23:59 23:59 23:59 Intake Total 2350.00 / 3550.00 7104 / 7584 940 / 940 Balance 2350.00 / 3550.00 7104 / 7584 940 / 940 Lab / Micro Data 01/24/25 05:20 01/22/25 07:35 Rhythm Strip Rhythm Strip: Sinus Tach Rate: 119 Ectopy: None Social Homelessness:: Sheltered Physical Exam Narrative He is alert and oriented x 3. He is in no acute distress. Abdomen is soft and nondistended. Mild left lower quadrant tenderness with palpation. No rebound or guarding Assessment & Plan Assessment/Plan (1) Diverticulitis of colon with perforation: PLAN: Plan The patient is a 34-year-old male with sigmoid diverticulitis with microperforation. No previous history of diverticulitis. He did reportedly have colitis after having COVID years ago. He has never had a colonoscopy. Clinically he continues to improve. His white count has quickly returned to normal and his exam improves each day. Will advance diet to low residue/low fiber diet today I would recommend at least another day of IV antibiotics Tentatively plan for discharge tomorrow with oral antibiotics Would recommend colonoscopy in about 8 weeks after full resolution of symptoms. Would like to see patient as an outpatient in a couple of weeks for reevaluation and to consider possible repeat CT scan Charges/Coding Visit Charges Inpatient E&M: 77761 Subs Hosp L2
[2025-01-25] MEDS: Dextrose 5%/0.9% NaCl 1,000 ML 110 ML IV (13:59)
[2025-01-25 14:00] VITALS: O2SAT 100
[2025-01-25 17:00] VITALS: BP 152/101; PULSE 70; RESP 16; TEMP 36.9; O2SAT 98
[2025-01-25] MEDS: 0.9% Saline Lock 10 ML Syringe IV (17:04)
[2025-01-25 21:05] VITALS: BP 155/92; PULSE 89; RESP 16; TEMP 36.5; O2SAT 100
[2025-01-26 02:57] VITALS: BP 146/98; PULSE 65; RESP 16; TEMP 36.6; O2SAT 100
[2025-01-26] MEDS: Dextrose 5%/0.9% NaCl 1,000 ML 110 ML IV (02:59)
[2025-01-26] MEDS: metroNIDAZOLE 500 MG/100 ML BAG 100 MG IV (05:25)
[2025-01-26] MEDS: Ketorolac 30 MG/ML Syringe IV (05:25)
[2025-01-26 06:03] LABS: Absolute Neutrophil Count 6.4 X10^3/uL (2.0-7.7); Basophil# 0.05 X10^3/uL; Basophil% 0.5 % (0-1); Eosinophil# 0.25 X10^3/uL; Eosinophils% 2.6 % (0-5); Hematocrit 41.9 % (40-54); Lymphocyte % 20.9 % (19-41); Mean Corp Hgb Conc 33.4 g/dL (32-36); Mean Corpuscular Hgb 29.5 pg (27.0-32.0); Mean Corpuscular Volume 88.4 fL (80-94); Mean Platelet Vol. 10.7 fl (6.2-12.0); Monocyte# 0.81 X10^3/uL; Monocyte% 8.5 % (0-10); NRBC Flagged by Analyzer 0 % (0-5); Neutrophil % 66.8 % (47-70); Platelet Count 320 K/mm3 (150-450); RBC Distribution Width CV 12.1 % (11.6-14.6); RBC Distribution Width SD 39.3 fl (35.1-43.9); Red Blood Count 4.74 M/mm3 (4.6-6.2); White Blood Count 9.6 K/mm3 (4.4-11.0)
--- NOTE | 2025-01-26 08:26 | PCM.PN.SRG ---
Objective Data Objective Data Vital Signs: Vital Signs Temp Pulse Resp BP Pulse Ox O2 Del Method 97.8 F 65 16 146/98 H 100 Room Air 01/26/25 02:57 01/26/25 02:57 01/26/25 02:57 01/26/25 02:57 01/26/25 02:57 01/26/25 02:57 Oxygen Delivery Method Room Air Weight: 182 lb 12.211 oz Body Mass Index (BMI) 26.2 Intake & Output: Intake and Output for Last 24 Hours 01/24/25 01/25/25 01/26/25 23:59 23:59 23:59 Intake Total 7104 / 7584 5744 / 5744 350 / 350 Balance 7104 / 7584 5744 / 5744 350 / 350 Lab / Micro Data 01/26/25 05:22 01/22/25 07:35 Labs: Laboratory Results - last 24 hr 01/26/25 05:22: WBC 9.6, RBC 4.74, Hgb 14.0, Hct 41.9, MCV 88.4, MCH 29.5, MCHC 33.4, RDW Std Deviation 39.3, RDW Coeff of Thomas 12.1, Plt Count 320, MPV 10.7, Immature Gran % (Auto) 0.700, Neut % (Auto) 66.8, Lymph % (Auto) 20.9, [place] % (Auto) 8.5, Eos % (Auto) 2.6, Baso % (Auto) 0.5, Absolute Neuts (auto) 6.4, Absolute Lymphs (auto) 2.00, Nucleated RBC % 0 Rhythm Strip Rhythm Strip: Sinus Tach Rate: 119 Ectopy: None Social Homelessness:: Sheltered
[2025-01-26] MEDS: Ceftriaxone 2 GM in 0.9% Normal Saline (50mL MB+) 50 ML IV (09:18)
[2025-01-26 09:37] VITALS: BP 141/72; PULSE 77; RESP 16; TEMP 37.2; O2SAT 100
--- NOTE | 2025-01-26 11:12 | PCM.DC.SUM ---
Providers Date of Admission: 01/21/25 Date of Discharge: 01/26/25 Primary Care Physician: Shania Vieira, KERRYC Reason For Visit: DIVERTICULITIS WITH PERFORATION Diagnosis Discharge Diagnosis (1) Diverticulitis of colon with perforation: Status: Acute Code(s): K57.20 - Diverticulitis of large intestine with perforation and abscess without bleeding Plan The patient is a 34-year-old male with sigmoid diverticulitis with microperforation. No previous history of diverticulitis. He did reportedly have colitis after having COVID years ago. He has never had a colonoscopy. Clinically he continues to improve. His white count has quickly returned to normal and his exam improves each day. Will advance diet to low residue/low fiber diet today I would recommend at least another day of IV antibiotics Tentatively plan for discharge tomorrow with oral antibiotics Would recommend colonoscopy in about 8 weeks after full resolution of symptoms. Would like to see patient as an outpatient in a couple of weeks for reevaluation and to consider possible repeat CT scan Medications at Discharge Home Medications amoxicillin 500 mg-potassium clavulanate 125 mg tablet (Augmentin) 1 tab PO BID 10 days #20 tabs 01/26/25 Hospital Course Operations None Summary of Care Provided Minutes Spent on Discharge: 15 Hospital Course: The patient is a 34-year-old male who presented to the emergency department with left lower quadrant abdominal pain. He was found to have acute sigmoid diverticulitis with a microperforation. Patient was subsequently admitted and started on IV antibiotics. His white count decreased and clinically he continued to improve each day. Diet was gradually advanced which he also tolerated without any worsening of his symptoms. Clinically his much improved. Plan is for him to be discharged to home today on a 10-day course of oral antibiotics. He will return to my office in about 2 weeks for reevaluation. He would benefit from colonoscopy in the next couple of months as well. Physical Exam Narrative He is alert and oriented x 3. He is in no acute distress. Abdomen is soft and nondistended. He still has some slight left lower quadrant discomfort with palpation. Medical Records Data Homelessness:: Sheltered Weight / BMI Weight Weight: 182 lb 12.211 oz Body Mass Index (BMI) 26.2 ABG / Lab / Microbiology Data 01/26/25 05:22 01/22/25 07:35 Laboratory: Laboratory Results - last 24 hr 01/26/25 05:22: WBC 9.6, RBC 4.74, Hgb 14.0, Hct 41.9, MCV 88.4, MCH 29.5, MCHC 33.4, RDW Std Deviation 39.3, RDW Coeff of Thomas 12.1, Plt Count 320, MPV 10.7, Immature Gran % (Auto) 0.700, Neut % (Auto) 66.8, Lymph % (Auto) 20.9, [place] % (Auto) 8.5, Eos % (Auto) 2.6, Baso % (Auto) 0.5, Absolute Neuts (auto) 6.4, Absolute Lymphs (auto) 2.00, Nucleated RBC % 0 D/C Instructions Discharge Diet: Light diet - advance as tolerated Discharge Activity: Return to Normal Activity Lifting Restrictions: None Call your doctor if your incision/area has: - (Please call if any abdominal pain worsens or if significant fevers or chills develop) DC O2, CPAP, BIPAP Needs Home O2 Discharge instructions: No DC home with Oxygen: No Please Follow Up With: Zechariah Bruno MD When: 2 weeks. Please call office to schedule appointment Meaningful Use Info Meaningful Use Meaningful Use Diagnoses (Choose all that apply): None applicable Ischemic Stroke Statin Dosing Therapy Reference: STATIN DOSE THERAPY REFERENCE: * Patients > 75 years receive moderate or high dose statin therapy. * Patients 75 years or YOUNGER should receive HIGH intensity statin dose unless contraindicated. You will be required to document reason for non-treatment if statin daily dose does not meet guidelines. HIGH DOSE STATIN THERAPY DAILY Atorvastatin > than or = to 40 mg Rosuvastatin > than or = to 20 mg Amlodipine + Atorvastatin > than or = to 2.5/40 mg Ezetimibe + Simvastatin 10/80 mg Simvastatin 80mg Discharge Plan Admission Admit Date/Time: 01/21/25 21:42 Primary Reason for Your Visit: Sigmoid colon Diverticulitis with microperforation Attending Provider: Zechariah Bruno Primary Care Provider: Shania Vieira NP Discharge Orders/Prescriptions Prescriptions: New amoxicillin-pot clavulanate [Augmentin] 500-125 mg tablet 1 tab PO BID 10 Days Qty: 20 0RF Referrals / Follow Up: Shania Vieira NP, CRISIS INTERVENTION SPECIALIST-C [Primary Care Provider] - Disposition Disposition (needs filled in before D/C Order can be placed): Home, Self Care
[2025-01-26 12:50] VITALS: BP 149/96; PULSE 77; RESP 18; TEMP 36.9; O2SAT 98
--- NOTE | 2025-01-26 13:37 | PHA.DC.MC.R ---
Pharmacy [facility] Counseling Pharmacy Service has performed discharge medication reconciliation and counseling for this patient. 1. AUGMENTIN 500MG PO BID X 10 DAYS The patient's discharge medication list was reviewed for discrepancies and discrepancies were resolved. The patient was counseled on the following discharge medications and changes in medications for homegoing were reviewed. The Reason for Use, instructions for use, and potential side effects were reviewed for all new medications. The patient's questions regarding all of their medications were answered. The patient was able to verbally demonstrate an understanding of their discharge medications. Medications at Discharge Home Medications amoxicillin 500 mg-potassium clavulanate 125 mg tablet (Augmentin) 1 tab PO BID 10 days #20 tabs 01/26/25
== END 2025-01-26 13:04 | disposition home or self-care (01) | DRG 244 ==
LOC: ED 18:49 → MS3 01-22 09:14
PROVIDERS: Admitting Provider Surgery; Emergency Provider Emergency Medicine; PCP Nurse Practitioner Family; Visit Provider Surgery
DX: K57.20 Diverticulitis of large intestine with perforation and abscess without bleeding (principal); Z59.01 Sheltered homelessness; F17.210 Nicotine dependence, cigarettes, uncomplicated; N18.2 Chronic kidney disease, stage 2 (mild)
CPT/HCPCS: 36415; 74177; 80053; 81001; 82550; 83735; 85025; 93005; 94668; 99284; Q9967; A4216; J0696

== ENCOUNTER 2025-06-26 20:41 | Emergency (ER) | payer MEDICAID, SELFPAY ==
[2025-06-26 20:42] VITALS: BP 125/97; PULSE 80; RESP 16; TEMP 36.8; O2SAT 99; BMI 25.1
--- NOTE | 2025-06-26 21:05 | RAD_ITS ---
PROCEDURE: KNEE 4 OR MORE VIEWS 06/26/2025 REASON FOR EXAM: INJURY/PAIN TECHNIQUE: Procedure Code: RADKN Modality: DX Procedure: KNEE 4 OR MORE VIEWS Laterality: Left COMPARISON: None. FINDINGS: No acute fracture or dislocation. Preserved joint spaces. No significant joint effusion. Moderate prepatellar soft tissue swelling/edema. No radiopaque foreign body. RAD/Knee 4 or More Views IMPRESSION: No acute fracture or dislocation. Moderate prepatellar soft tissue swelling. Reading Location: [id number]
--- OUTSIDE RECORDS SUMMARY | 2025-06-26 21:20 | XMS RPT_ITS | CCD ---
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 [place] Comment on above: Performed By: #### L 100.0100 #### [facility] Laboratory [address] [place], [address] MCHC (RBC) [Mass/Vol] 33.4 g/dL Normal 32-36 [facility] Comment on above: Performed By: #### L 100.0100 #### [facility] Laboratory [address] [place], [address] MCV (RBC) [Entitic vol] 88.4 fL Normal 80-94 [facility] Comment on above: Performed By: #### L 100.0100 #### [facility] Laboratory [address] [place], [address] Monocytes/100 WBC (Bld) 8.5 % Normal 0-10 [facility] Comment on above: Performed By: #### L 100.0100 #### [facility] Laboratory [address] [place], [address] Neutrophils/100 WBC (Bld) 66.8 % Normal 47-70 [facility] [place] Comment on above: Performed By: #### L 100.0100 #### [facility] Laboratory [address] [place], [address] Nucleated RBC (Bld) [#/Vol] 0 10*3/uL Normal 0-5 [facility] [place] Comment on above: Performed By: #### L 100.0100 #### [facility] Laboratory [address] [place], [address] Platelet mean volume (Bld) [Entitic vol] 10.7 fL Normal 6.2-12.0 [facility] Comment on above: Performed By: #### L 100.0100 #### [facility] [place] Laboratory [address] [place], [address] Platelets (Bld) [#/Vol] 320 10*3/uL Normal 150-450 [facility] Comment on above: Performed By: #### L 100.0100 #### [facility] Laboratory [address] [place], [address] RBC (Bld) [#/Vol] 4.74 10*6/uL Normal 4.6-6.2 [facility] Comment on above: Performed By: #### L 100.0100 #### [facility] Laboratory [address] [place], [address] RDW SD 39.3 fl Normal 35.1-43.9 [facility] [place] Comment on above: Performed By: #### L 100.0100 #### [facility] Laboratory [address] [place], [address] WBC (Bld) [#/Vol] 9.6 10*3/uL Normal 4.4-11.0 [facility] Comment on above: Performed By: #### L 100.0100 #### [facility] Laboratory [address] [place], [address] Eosinophil percentageOrdered By: Zechariah Bruno on 01-26-2025 Eosinophils/100 WBC (Bld) 2.6 % 0-5 [facility] [place] Erythrocyte distribution wid th ratioOrdered By: Zechariah Bruno on 01-26-2025 Erythrocyte distribution width (RBC) [Ratio] 12.1 % 11.6-14.6 [facility] [place] Erythrocyte distribution wid th standard deviationOrdered By: Zechariah Bruno on 01-26-2025 Erythrocyte distribution width (RBC) [Ratio] 39.3 fl 35.1-43.9 [facility] [place] Hematocrit Auto (Bld) [Volum e fraction]Ordered By: Zechariah Bruno on 01-26-2025 Hematocrit (Bld) [Volume fraction] 41.9 % 40-54 [facility] [place] Hemoglobin measurementOrdere d By: Zechariah Bruno on 01-26-2025 Hemoglobin (Bld) [Mass/Vol] 14.0 g/dL 13.0-16.5 [facility] [place] Immature granulocytes/100 WB C Auto (Bld)Ordered By: Zechariah Bruno on 01-26-2025 Immature granulocytes/100 WBC (Bld) 0.700 % 0.0-0.9 [facility] [place] Comment on above: IG% - Immature Granu locytes (promyelocytes, myelocytes and metamyelocytes) > 1% indicates that a LEFT SHIFT is Present. MCV (mean corpuscular volume ) determinationOrdered By: Zechariah Bruno on 01-26-2025 MCV (RBC) [Entitic vol] 88.4 fL 80-94 [facility] Mean corpuscular hemoglobin (MCH) determinationOrdered By: Zechariah Bruno on 01-26-2025 MCH (RBC) [Entitic mass] 29.5 pg 27.0-32.0 [facility] [place] Mean corpuscular hemoglobin concentration (MCHC) determinationOrdered By: Zechariah Bruno on 01-26-2025 MCHC (RBC) [Mass/Vol] 33.4 g/dL 32-36 [facility] Mean platelet volume determi nationOrdered By: Zechariah Bruno on 01-26-2025 Platelet mean volume (Bld) [Entitic vol] 10.7 fL 6.2-12.0 [facility] [place] Monocyte percentageOrdered B y: Zechariah Bruno on 01-26-2025 Monocytes/100 WBC (Bld) 8.5 % 0-10 [facility] Neutrophil percentageOrdered By: Zechariah Bruno on 01-26-2025 Neutrophils/100 WBC (Bld) 66.8 % 47-70 [facility] Nucleated red blood cell per centageOrdered By: Zechariah Bruno on 01-26-2025 Nucleated RBC/100 WBC (Bld) [Ratio] 0 % 0-5 [facility] [place] Platelet countOrdered By: St adrian Bruno on 01-26-2025 Platelets (Bld) [#/Vol] 320 10*3/uL 150-450 [facility] RBC Auto (Bld) [#/Vol]Ordere d By: eZchariah Bruno on 01-26-2025 RBC (Bld) [#/Vol] 4.74 10*6/uL 4.6-6.2 [facility] White blood cell (WBC) count Ordered By: Zechariah Bruno on 01-26-2025 WBC (Bld) [#/Vol] 9.6 10*3/uL 4.4-11.0 [facility] CBC W/Diff, Automatedon 12-29 Absolute Lymph 1.20 X10 3/uL Normal 0.83-4.51 [facility] Comment on above: Performed By: #### L 100.0100 #### [facility] Laboratory [address] [place], [address] Absolute Neut 5.6 X10 3/uL Normal 2.0-7.7 [facility] Comment on above: Performed By: #### L 100.0100 #### [facility] Laboratory [address] [place], [address] Basophils/100 WBC (Bld) 0.3 % Normal 0-1 [facility] Comment on above: Performed By: #### L 100.0100 #### [facility] Laboratory [address] [place], [address] Eosinophils/100 WBC (Bld) 2.7 % Normal 0-5 [facility] Comment on above: Performed By: #### L 100.0100 #### [facility] Laboratory [address] [place], [address] Erythrocyte distribution width (RBC) [Ratio] 12.1 % Normal 11.6-14.6 [facility] Comment on above: Performed By: #### L 100.0100 #### [facility] Laboratory [address] [place], [address] Hematocrit (Bld) [Volume fraction] 38.3 % Low 40-54 [facility] Comment on above: Performed By: #### L 100.0100 #### [facility] Laboratory [address] [place], [address] Hemoglobin (Bld) [Mass/Vol] 13.0 g/dL Normal 13.0-16.5 [facility] Comment on above: Performed By: #### L 100.0100 #### [facility] Laboratory [address] [place], [address] IG% 0.400 Normal 0.0-0.9 [facility] Comment on above: Result Comment: IG% - Immature Granulocytes (promyelocytes, myelocytes and metamyelocytes) > 1% indicates that a LEFT SHIFT is Present. Performed By: #### L 100.0100 #### [facility] Laboratory [address] [place], [place] [address]e. [place], [address] Lymphocytes/100 WBC (Bld) 15.6 % Low 19-41 [facility] Comment on above: Performed By: #### L 100.0100 #### [facility] Laboratory [facility] [place], [address] MCH (RBC) [Entitic mass] 29.9 pg Normal 27.0-32.0 [facility] Comment on above: Performed By: #### L 100.0100 #### [facility] Laboratory [address] [place], [address] MCHC (RBC) [Mass/Vol] 33.9 g/dL Normal 32-36 [facility] Comment on above: Performed By: #### L 100.0100 #### [facility] Laboratory [address] [place], [address] MCV (RBC) [Entitic vol] 88.0 fL Normal 80-94 [facility] Comment on above: Performed By: #### L 100.0100 #### [facility] Laboratory [address] [place], [address] Monocytes/100 WBC (Bld) 8.9 % Normal 0-10 [facility] Comment on above: Performed By: #### L 100.0100 #### [facility] Laboratory [address] [place], [address] Neutrophils/100 WBC (Bld) 72.1 % High 47-70 [facility] [place] Comment on above: Performed By: #### L 100.0100 #### [facility] Laboratory [address] [place], [address] Nucleated RBC (Bld) [#/Vol] 0 10*3/uL Normal 0-5 [facility] [place] Comment on above: Performed By: #### L 100.0100 #### [facility] Laboratory [address] [place], [address] Platelet mean volume (Bld) [Entitic vol] 11.2 fL Normal 6.2-12.0 [facility] Comment on above: Performed By: #### L 100.0100 #### [facility] Laboratory [address] [place], [address] Platelets (Bld) [#/Vol] 266 10*3/uL Normal 150-450 [facility] [place] Comment on above: Performed By: #### L 100.0100 #### [facility] Laboratory [address] [place], [address] RBC (Bld) [#/Vol] 4.35 10*6/uL Low 4.6-6.2 [facility] Comment on above: Performed By: #### L 100.0100 #### [facility] Laboratory [address] [place], [address] RDW SD 39.5 fl Normal 35.1-43.9 [facility] [place] Comment on above: Performed By: #### L 100.0100 #### [facility] Laboratory [address] [place], [address] WBC (Bld) [#/Vol] 7.7 10*3/uL Normal 4.4-11.0 [facility] Comment on above: Performed By: #### L 100.0100 #### [facility] Laboratory [address] [place], [address] CBC W/Diff, Automatedon 06-2 -2024 Absolute Lymph 1.06 X10 3/uL Normal 0.83-4.51 [facility] Comment on above: Performed By: #### L 100.0100 #### [facility] Laboratory [address] [place], [address] Absolute Neut 6.1 X10 3/uL Normal 2.0-7.7 [facility] Comment on above: Performed By: #### L 100.0100 #### [facility] Laboratory [address] [place], [address] Basophils/100 WBC (Bld) 0.4 % Normal 0-1 [facility] Comment on above: Performed By: #### L 100.0100 #### [facility] Laboratory [address] [place], [address] Eosinophils/100 WBC (Bld) 2.6 % Normal 0-5 [facility] [place] Comment on above: Performed By: #### L 100.0100 #### [facility] [place] Laboratory [address] [place], [address] Erythrocyte distribution width (RBC) [Ratio] 12.3 % Normal 11.6-14.6 [facility] Comment on above: Performed By: #### L 100.0100 #### [facility] Laboratory [address] [place], [address] Hematocrit (Bld) [Volume fraction] 37.5 % Low 40-54 [facility] [place] Comment on above: Performed By: #### L 100.0100 #### [facility] Laboratory [address] [place], [address] Hemoglobin (Bld) [Mass/Vol] 12.6 g/dL Low 13.0-16.5 [facility] Comment on above: Performed By: #### L 100.0100 #### [facility] Laboratory [address] [place], [address] IG% 0.400 Normal 0.0-0.9 [facility] [place] Comment on above: Result Comment: IG% - Immature Granulocytes (promyelocytes, myelocytes and metamyelocytes) > 1% indicates that a LEFT SHIFT is Present. Performed By: #### L 100.0100 #### [facility] Laboratory [address] [place], [address] Lymphocytes/100 WBC (Bld) 12.6 % Low 19-41 [facility] [place] Comment on above: Performed By: #### L 100.0100 #### [facility] Laboratory [address] [place], [address] MCH (RBC) [Entitic mass] 29.5 pg Normal 27.0-32.0 [facility] Comment on above: Performed By: #### L 100.0100 #### [facility] Laboratory [address] [place], [address] MCHC (RBC) [Mass/Vol] 33.6 g/dL Normal 32-36 [facility] Comment on above: Performed By: #### L 100.0100 #### [facility] Laboratory [address] [place], [address] MCV (RBC) [Entitic vol] 87.8 fL Normal 80-94 [facility] Comment on above: Performed By: #### L 100.0100 #### [facility] Laboratory [address] [place], [address] Monocytes/100 WBC (Bld) 10.9 % High 0-10 [facility] Comment on above: Performed By: #### L 100.0100 #### [facility] Laboratory [address] [place], [address] Neutrophils/100 WBC (Bld) 73.1 % High 47-70 [facility] Comment on above: Performed By: #### L 100.0100 #### [facility] Laboratory [address] [place], [address] Nucleated RBC (Bld) [#/Vol] 0 10*3/uL Normal 0-5 [facility] Comment on above: Performed By: #### L 100.0100 #### [facility] Laboratory [address] [place], [address] Platelet mean volume (Bld) [Entitic vol] 11.6 fL Normal 6.2-12.0 [facility] Comment on above: Performed By: #### L 100.0100 #### [facility] Laboratory [address] [place], [address] Platelets (Bld) [#/Vol] 204 10*3/uL Normal 150-450 [facility] Comment on above: Performed By: #### L 100.0100 #### [facility] Laboratory [address] [place], [address] RBC (Bld) [#/Vol] 4.27 10*6/uL Low 4.6-6.2 [facility] Comment on above: Performed By: #### L 100.0100 #### [facility] Laboratory [address] [place], [address] RDW SD 39.4 fl Normal 35.1-43.9 [facility] Comment on above: Performed By: #### L 100.0100 #### [facility] Laboratory [address] [place], [address] WBC (Bld) [#/Vol] 8.4 10*3/uL Normal 4.4-11.0 [facility] Comment on above: Performed By: #### L 100.0100 #### [facility] Laboratory [address] [place], [address] Anion gap in Serum or Plasma Ordered By: Zechariah Bruno on 01-22-2025 Anion gap [Moles/Vol] 11 mmol/L 5-15 [facility] BUN/creatinine ratioOrdered By: Zechariah Bruno on 01-22-2025 Urea nitrogen/Creatinine [Mass ratio] 9.2 mg/mg Low 10-20 [facility] Bilirubin, totalOrdered By: Zechariah Bruno on 01-22-2025 Bilirubin [Mass/Vol] 0.75 mg/dL 0.00-1.30 [facility] CBC W/Diff, Automatedon 12-29 Absolute Lymph 1.23 X10 3/uL Normal 0.83-4.51 [facility] Comment on above: Performed By: #### L 400.0001 #### [facility] Laboratory [address] [place], [address] Absolute Neut 9.9 X10 3/uL High 2.0-7.7 [facility] Comment on above: Performed By: #### L 400.0001 #### [facility] Laboratory [address] [place], [address] Basophils/100 WBC (Bld) 0.2 % Normal 0-1 [facility] Comment on above: Performed By: #### L 400.0001 #### [facility] Laboratory [address] [place], [address] Eosinophils/100 WBC (Bld) 1.4 % Normal 0-5 [facility] Comment on above: Performed By: #### L 400.0001 #### [facility] Laboratory [address] [place], [address] Erythrocyte distribution width (RBC) [Ratio] 12.1 % Normal 11.6-14.6 [facility] Comment on above: Performed By: #### L 400.0001 #### [facility] Laboratory [address] [place], [address] Hematocrit (Bld) [Volume fraction] 38.8 % Low 40-54 [facility] Comment on above: Performed By: #### L 400.0001 #### [facility] Laboratory [address] [place], [address] Hemoglobin (Bld) [Mass/Vol] 13.2 g/dL Normal 13.0-16.5 [facility] Comment on above: Performed By: #### L 400.0001 #### [facility] Laboratory [address] [place], [address] IG% 0.600 Normal 0.0-0.9 [facility] Comment on above: Result Comment: IG% - Immature Granulocytes (promyelocytes, myelocytes and metamyelocytes) > 1% indicates that a LEFT SHIFT is Present. Performed By: #### L 400.0001 #### [facility] Laboratory [address] [place], [address] Lymphocytes/100 WBC (Bld) 9.7 % Low 19-41 [facility] Comment on above: Performed By: #### L 400.0001 #### [facility] Laboratory [address] [place], [address] MCH (RBC) [Entitic mass] 29.7 pg Normal 27.0-32.0 [facility] Comment on above: Performed By: #### L 400.0001 #### [facility] Laboratory [address] [place], [address] MCHC (RBC) [Mass/Vol] 34.0 g/dL Normal 32-36 [facility] Comment on above: Performed By: #### L 400.0001 #### [facility] Laboratory [address] [place], [address] MCV (RBC) [Entitic vol] 87.2 fL Normal 80-94 [facility] Comment on above: Performed By: #### L 400.0001 #### [facility] Laboratory [address] [place], [address] Monocytes/100 WBC (Bld) 10.2 % High 0-10 [facility] Comment on above: Performed By: #### L 400.0001 #### [facility] [address] [place], [address] Neutrophils/100 WBC (Bld) 77.9 % High 47-70 [facility] Comment on above: Performed By: #### L 400.0001 #### [facility] [address] [place], [address] Nucleated RBC (Bld) [#/Vol] 0 10*3/uL Normal 0-5 [facility] Comment on above: Performed By: #### L 400.0001 #### [facility] [address] [place], [address] Platelet mean volume (Bld) [Entitic vol] 10.6 fL Normal 6.2-12.0 [facility] Comment on above: Performed By: #### L 400.0001 #### [facility] [address] [place], [address] Platelets (Bld) [#/Vol] 185 10*3/uL Normal 150-450 [facility] Comment on above: Performed By: #### L 400.0001 #### [facility] [address] [place], [address] RBC (Bld) [#/Vol] 4.45 10*6/uL Low 4.6-6.2 [facility] Comment on above: Performed By: #### L 400.0001 #### [facility] [address] [place], [address] RDW SD 39.1 fl Normal 35.1-43.9 [facility] Comment on above: Performed By: #### L 400.0001 #### [facility] [address] [place], [address] WBC (Bld) [#/Vol] 12.7 10*3/uL High 4.4-11.0 [facility] Comment on above: Performed By: #### L 400.0001 #### [facility] [address] [place], [address] Carbon dioxide, total [Moles /volume] in Central venous bloodOrdered By: Zechariah Bruno on 01-22-2025 CO2 [Moles/Vol] 22.6 mmol/L 21.0-32.0 [facility] Chloride assayOrdered By: St adrian Bruno on 01-22-2025 Chloride [Moles/Vol] 105 mmol/L 98-108 [facility] Comprehensive Metabolic Prof ilon 01-22-2025 Albumin/Globulin [Mass ratio] 1.1 {ratio} Normal 0.9-2.4 [facility] Comment on above: Performed By: #### L 400.0001 #### [facility] [address] [place], [address] ALK PHOS 119 U/L Normal 40-129 [facility] Comment on above: Performed By: #### L 400.0001 #### [facility] [address] [place], [address] ALT [Catalytic activity/Vol] 13 U/L Normal <=46 [facility] Comment on above: Performed By: #### L 400.0001 #### [facility] [address] [place], [address] AST [Catalytic activity/Vol] 15 U/L Normal <=37 [facility] Comment on above: Performed By: #### L 400.0001 #### [facility] [address] [place], [address] Bilirubin [Mass/Vol] 0.75 mg/dL Normal 0.00-1.30 [facility] Comment on above: Performed By: #### L 400.0001 #### [facility] [address] [place], [address] Calcium [Mass/Vol] 8.7 mg/dL Normal 7.6-11.0 [facility] Comment on above: Performed By: #### L 400.0001 #### [facility] [address] [place], [address] Chloride [Moles/Vol] 105 mmol/L Normal 98-108 [facility] Comment on above: Performed By: #### L 400.0001 #### [facility] [address] [place], [address] CO2 [Moles/Vol] 22.6 mmol/L Normal 21.0-32.0 [facility] Comment on above: Performed By: #### L 400.0001 #### [facility] [address] [place], [address] GAP 11 Normal 5-15 [facility] Comment on above: Performed By: #### L 400.0001 #### [facility] [address] [place], [address] Potassium [Moles/Vol] 3.6 mmol/L Normal 3.3-5.1 [facility] Comment on above: Performed By: #### L 400.0001 #### [facility] [address] [place], [address] Sodium [Moles/Vol] 138 mmol/L Normal 133-145 [facility] Comment on above: Performed By: #### L 400.0001 #### [facility] [address] [place], [address] Albumin [Mass/Vol] 3.2 g/dL Low 3.5-5.0 [facility] Comment on above: Performed By: #### L 400.0001 #### [facility] [address] [place], [address] BUN/CRE 9.2 RATIO Low 10-20 [facility] Comment on above: Performed By: #### L 400.0001 #### [facility] [address] [place], [address] Creatinine [Mass/Vol] 0.95 mg/dL Normal 0.70-1.20 [facility] Comment on above: Performed By: #### L 400.0001 #### [facility] [address] [place], [address] ECRCL 110.99 ml/min Normal 50-250 [facility] Comment on above: Performed By: #### L 400.0001 #### [facility] [address] [place], [address] GFR/1.73 sq M.predicted among non-blacks MDRD (S/P/Bld) [Vol rate/Area] 106 mL/min/{1.73_m2} Normal >60 [facility] Comment on above: Result Comment: mL/m in/1.73m2 CKD-EPI Creatinine Equation (2020) Performed By: #### L 400.0001 #### [facility] [address] [place], [address] Globulin (S) [Mass/Vol] 3.0 g/dL Normal 2.2-4.2 [facility] Comment on above: Performed By: #### L 400.0001 #### [facility] [address] [place], [address] Glucose [Mass/Vol] 109 mg/dL High 70-99 [facility] Comment on above: Performed By: #### L 400.0001 #### [facility] [address] [place], [address] T PROT 6.2 g/dL Normal 5.9-8.4 [facility] Comment on above: Performed By: #### L 400.0001 #### [facility] [address] [place], [address] Urea nitrogen [Mass/Vol] 9 mg/dL Normal 4-19 [facility] Comment on above: Performed By: #### L 400.0001 #### [facility] [address] [place], [place], [id number] Glomerular filtration rate ( GFR) estimation/1.73 sq m using serum, plasma, or whole bOrdered By: Zechariah Bruno on 01-22-2025 GFR/1.73 sq M.predicted among non-blacks MDRD (S/P/Bld) [Vol rate/Area] 106 mL/min/{1.73_m2} >60 [facility] Comment on above: mL/min/1.73m2 CKD-EP I Creatinine Equation (2020) Laboratory - Chemistry and C hemistry - challengeOrdered By: Zechariah Bruno on 01-22-2025 AST [Catalytic activity/Vol] 15 U/L <38 [facility] Potassium measurement (mass/ volume)Ordered By: Zechariah Bruno on 01-22-2025 Potassium (Unsp spec) [Mass/Vol] 3.6 mmol/L 3.3-5.1 [facility] Serum creatinine measurement (mass/volume)Ordered By: Zechariah Bruno on 01-22-2025 Creatinine [Mass/Vol] 0.95 mg/dL 0.70-1.20 [facility] Serum globulin measurementOr dered By: Zechariah Bruno on 01-22-2025 Globulin (S) [Mass/Vol] 3.0 g/dL 2.2-4.2 [facility] Serum glucose measurement (m ass/volume)Ordered By: Zechariah Bruno on 01-22-2025 Glucose [Mass/Vol] 109 mg/dL High 70-99 [facility] Serum or plasma alanine salazar otransferase (ALT) measurementOrdered By: Zechariah Bruno on 01-22-2025 ALT [Catalytic activity/Vol] 13 U/L <47 [facility] Serum or plasma albumin jacob urement (mass/volume)Ordered By: Zechariah Bruno on 01-22-2025 Albumin [Mass/Vol] 3.2 g/dL Low 3.5-5.0 [facility] Serum or plasma albumin/glob ulin mass ratioOrdered By: Zechariah Bruno on 01-22-2025 Albumin/Globulin [Mass ratio] 1.1 {ratio} 0.9-2.4 [facility] Serum or plasma alkaline roni sphatase measurementOrdered By: Zechariah Bruno on 01-22-2025 ALP [Catalytic activity/Vol] 119 U/L 40-129 [facility] Serum or plasma calcium jacbo urement (mass/volume)Ordered By: Zechariah Bruno on 01-22-2025 Calcium [Mass/Vol] 8.7 mg/dL 7.6-11.0 [facility] Serum or plasma urea nitroge n measurement (mass/volume)Ordered By: Zechariah Bruno on 01-22-2025 Urea nitrogen [Mass/Vol] 9 mg/dL 4-19 [facility] Sodium levelOrdered By: Jitendra Bruno on 01-22-2025 Sodium [Moles/Vol] 138 mmol/L 133-145 [facility] Total proteinOrdered By: Julian Bruno on 01-22-2025 Protein [Mass/Vol] 6.2 g/dL 5.9-8.4 [facility] Abdomen/Pelvis W IV Cont ONL Yon 01-21-2025 Abdomen/Pelvis W IV Cont ONLY [facility] [address] [place], [place] [address] Abdomen/Pelvis W IV Cont ONLY MR#: [id number] Acct: [id number] Name: GABRIELA VIDAL Rep #: [id number] : 1990 M 34 From: Minh Arce PCP: 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 Reading Location: [facility] CC: ELOISA Vieira; Dr. Shiela Quinn DO Substitute Nurse: Signed Normal [facility] Absolute lymphocyte countOrd ered By: Shiela Quinn on 01-21-2025 Lymphocytes Auto (Unsp spec) [#/Vol] 1.62 10*3/uL 0.83-4.51 [facility] Absolute neutrophil countOrd ered By: Shiela Quinn on 01-21-2025 Neutrophils (Bld) [#/Vol] 14.4 10*3/uL High 2.0-7.7 [facility] Anion gap in Serum or Plasma Ordered By: Shiela Quinn on 01-21-2025 Anion gap [Moles/Vol] 11 mmol/L 5-15 [facility] Automated lymphocyte count a s percentage of total leukocytesOrdered By: Shiela Quinn on 01-21-2025 Lymphocytes/100 WBC Auto (Unsp spec) 9.1 % Low 19-41 [facility] BUN/creatinine ratioOrdered By: Shiela Quinn on 01-21-2025 Urea nitrogen/Creatinine [Mass ratio] 7.9 mg/mg Low 10-20 [facility] Basophil percentageOrdered B y: Shiela Quinn on 01-21-2025 Basophils/100 WBC (Bld) 0.3 % 0-1 [facility] Bilirubin Test strip Ql (U)O rdered By: Shiela Quinn on 01-21-2025 Bilirubin Ql (U) Negative Negative [facility] Bilirubin, totalOrdered By: Shiela Quinn on 01-21-2025 Bilirubin [Mass/Vol] 1.40 mg/dL High 0.00-1.30 [facility] CBC W/Diff, Automatedon 12-29 PLT EST ADEQUATE Normal ADEQ [facility] Comment on above: Performed By: #### L 100.0100, L501.5200, L501.3620, L500.4050 #### [facility] [address] [place], [place], [id number] CPK Total, Creatine Kinaseon 01-21-2025 CPK TOTAL 82 U/L Normal 24-195 [facility] Comment on above: Performed By: #### L 100.0100, L501.5200, L501.3620, L500.4050 #### [facility] Laboratory [address] [place], [address] Carbon dioxide, total [Moles /volume] in Central venous bloodOrdered By: Shiela Quinn on 01-21-2025 CO2 [Moles/Vol] 24.9 mmol/L 21.0-32.0 [facility] Chloride assayOrdered By: Miguel Quinn on 01-21-2025 Chloride [Moles/Vol] 97 mmol/L Low 98-108 [facility] Comprehensive Metabolic Prof ilon 01-21-2025 ALK PHOS 79 U/L Normal 40-129 [facility] Comment on above: Performed By: #### L 100.0100, L501.5200, L501.3620, L500.4050 #### [facility] Laboratory [address] [place], [address] ALT [Catalytic activity/Vol] 13 U/L Normal <=46 [facility] Comment on above: Performed By: #### L 100.0100, L501.5200, L501.3620, L500.4050 #### [facility] [address] [place], [address] AST [Catalytic activity/Vol] 13 U/L Normal <=37 [facility] Comment on above: Performed By: #### L 100.0100, L501.5200, L501.3620, L500.4050 #### [facility] Laboratory [address] [place], [address] Bilirubin [Mass/Vol] 1.40 mg/dL High 0.00-1.30 [facility] Comment on above: Performed By: #### L 100.0100, L501.5200, L501.3620, L500.4050 #### [facility] Laboratory [address] [place], [address] Chloride [Moles/Vol] 97 mmol/L Low 98-108 [facility] Comment on above: Performed By: #### L 100.0100, L501.5200, L501.3620, L500.4050 #### [facility] [address] [place], [address] CO2 [Moles/Vol] 24.9 mmol/L Normal 21.0-32.0 [facility] Comment on above: Performed By: #### L 100.0100, L501.5200, L501.3620, L500.4050 #### [facility] [address] [place], [address] GAP 11 Normal 5-15 [facility] Comment on above: Performed By: #### L 100.0100, L501.5200, L501.3620, L500.4050 #### [facility] [address] [place], [address] Potassium [Moles/Vol] 4.1 mmol/L Normal 3.3-5.1 [facility] Comment on above: Performed By: #### L 100.0100, L501.5200, L501.3620, L500.4050 #### [facility] [address] [place], [address] Sodium [Moles/Vol] 133 mmol/L Normal 133-145 [facility] Comment on above: Performed By: #### L 100.0100, L501.5200, L501.3620, L500.4050 #### [facility] [address] [place], [address] Albumin [Mass/Vol] 3.8 g/dL Normal 3.5-5.0 [facility] Comment on above: Performed By: #### L 100.0100, L501.5200, L501.3620, L500.4050 #### [facility] [address] [place], [address] Albumin/Globulin [Mass ratio] 1.2 {ratio} Normal 0.9-2.4 [facility] Comment on above: Performed By: #### L 100.0100, L501.5200, L501.3620, L500.4050 #### [facility] [address] [place], [address] BUN/CRE 7.9 RATIO Low 10-20 [facility] Comment on above: Performed By: #### L 100.0100, L501.5200, L501.3620, L500.4050 #### [facility] Laboratory [address] [place], [address] Calcium [Mass/Vol] 9.2 mg/dL Normal 7.6-11.0 [facility] Comment on above: Performed By: #### L 100.0100, L501.5200, L501.3620, L500.4050 #### [facility] [address] [place], [address] Creatinine [Mass/Vol] 1.22 mg/dL High 0.70-1.20 [facility] Comment on above: Performed By: #### L 100.0100, L501.5200, L501.3620, L500.4050 #### [facility] [address] [place], [address] ECRCL 83.71 ml/min Normal 50-250 [facility] Comment on above: Performed By: #### L 100.0100, L501.5200, L501.3620, L500.4050 #### [facility] [address] [place], [address] GFR/1.73 sq M.predicted among non-blacks MDRD (S/P/Bld) [Vol rate/Area] 79 mL/min/{1.73_m2} Normal >60 [facility] Comment on above: Result Comment: mL/m in/1.73m2 CKD-EPI Creatinine Equation (2020) Performed By: #### L 100.0100, L501.5200, L501.3620, L500.4050 #### [facility] [address] [place], [address] Globulin (S) [Mass/Vol] 3.3 g/dL Normal 2.2-4.2 [facility] Comment on above: Performed By: #### L 100.0100, L501.5200, L501.3620, L500.4050 #### [facility] [address] [place], [address] Glucose [Mass/Vol] 104 mg/dL High 70-99 [facility] Comment on above: Performed By: #### L 100.0100, L501.5200, L501.3620, L500.4050 #### [facility] [address], [address] T PROT 7.1 g/dL Normal 5.9-8.4 [facility] Comment on above: Performed By: #### L 100.0100, L501.5200, L501.3620, L500.4050 #### [facility] [address] [place], [address] Urea nitrogen [Mass/Vol] 10 mg/dL Normal 4-19 [facility] Comment on above: Performed By: #### L 100.0100, L501.5200, L501.3620, L500.4050 #### [facility] [address], [address] Emergency Department Summary on 01-21-2025 Emergency Department Summary [facility] Medical Records Department [address] [place] [address] Emergency Department Summary 01/21/25 MR#: [id number] Acct: [id number] Name: MARCYGABRIELA CRESPO Rep #: [id number] : 1990 34 From: Shiela Quinn DO PCP: ELOISA Braden Status:ADM IN Location: [place] [address] HPI HPI - GI History of Present Illness Chief Complaint: Abd Pain Informant: patient Narrative Narrative: Patient is a 34-year-old male with history of schizophrenia, CKD 2, ADHD and polysubstance abuse presenting with lower abdominal pain. Patient states he got a new e-bike is riding his bike a lot. He does know if he has been overdoing it in the heat and also has been having abdominal pain. Is also not sure if he may be pulled something. 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 For the past few days has been having pain mostly in his left lower quadrant but it radiates to his periumbilical area as well. He denies associated nausea or vomiting. States that he usually does not drink much water and will mostly either drink tea or pop. He has been trying to drink water today. He states he has been urinating but his urine is been a lot darker. Is having associated abdominal cramping. Denies any fevers. Denies associated chest pain or shortness of breath. Denies any leg swelling. States at times the pain in his abdomen does radiate to his groin but he does not have any specific testicular pain. States he did have something similar to this in the past which was associated with COVID. He does report that he has been mildly constipated. Feels that he might need to have a bowel movement today. PFSH PFSH Medical History ADHD Schizophrenia Mood disorder Anxiety and depression CKD (chronic kidney disease), stage II Polysubstance abuse Tobacco use Home Medications ???Medication ???Instructions ???Recorded ???Last Taken ???Type NK 01/21/25 Unknown History Allergy/AdvReac Type Severity Reaction Status Date / Time No Known Allergies Allergy Verified 01/21/25 16:10 Family History Mother Kidney disease Father Cancer [...] Constitutional Constitutional ED: Denies chills or fever(s) Cardiovascular Cardiovascular: Denies chest pain Respiratory/Chest Respiratory/Chest: Denies cough or dyspnea Gastrointestinal Gastrointestinal: Reports abdominal pain and constipation; Denies vomiting Genitourinary Genitourinary ED: Reports dysuria; Denies hematuria Musculoskeletal Musculoskeletal: Reports myalgias; Denies arthralgias Integumentary Denies rash Neurologic Neurologic: Denies weakness EXAM Physical Exam Const Vital Signs: 01/21/25 16:05 01/21/25 18:05 01/21/25 20:00 Temperature 97.5 F L Temperature Source Temporal Pulse Rate 134 H 99 74 Respiratory Rate 18 18 18 Respiratory Effort Respiratory Depth Respiratory Pattern Blood Pressure 140/83 H 136/88 H 136/76 H Blood Pressure Mean 102 104 96 Blood Pressure Source Blood Pressure Position Blood Pressure Location Pulse Ox 98 95 99 Oxygen Delivery Method Room Air Room Air 01/21/25 21:53 01/21/25 21:53 01/21/25 23:03 Temperature 100 F H 100 F H 98.1 F Temperature Source Oral Temporal Pulse Rate 118 H 118 H 112 H Respiratory Rate 18 18 16 Respiratory Effort Respiratory Depth Respiratory Pattern Blood Pressure 130/83 H 130/83 H 111/70 Blood Pressure Mean 98 98 83 Blood Pressure Source Monitor Blood Pressure Position Semi-Fowlers Blood Pressure Location Left Forearm Pulse Ox 100 100 100 Oxygen Delivery Method Room Air Room Air 01/21/25 23:19 Temperature Temperature Source Pulse Rate Respiratory Rate Respiratory Effort Normal Non-Labored Respiratory Depth Normal Respiratory Pattern Normal Blood Pressure Blood Pressure Mean Blood Pressure Source Blood Pressure Position Blood Pressure Location Pulse Ox Oxygen Delivery Method Room Air MDM MDM MDM Narrative Medical decision making narrative: Patient evaluated for cramps, worsening left lower quadrant abdominal pain. He is initially quite tachycardic on arrival but does improve with IV fluids in the emergency room. He has significant pain in his left lower quadrant. Differential (more content not included)... Normal [facility] Eosinophil percentageOrdered By: Shiela Quinn on 01-21-2025 Eosinophils/100 WBC (Bld) 0.3 % 0-5 [facility] Erythrocyte distribution wid th ratioOrdered By: Shiela Quinn on 01-21-2025 Erythrocyte distribution width (RBC) [Ratio] 12.1 % 11.6-14.6 [facility] Erythrocyte distribution wid th standard deviationOrdered By: Shiela Quinn on 01-21-2025 Erythrocyte distribution width (RBC) [Ratio] 39.0 fl 35.1-43.9 [facility] [place] Glomerular filtration rate ( GFR) estimation/1.73 sq m using serum, plasma, or whole bOrdered By: Shiela Quinn on 01-21-2025 GFR/1.73 sq M.predicted among non-blacks MDRD (S/P/Bld) [Vol rate/Area] 79 mL/min/{1.73_m2} >60 [facility] [place] Comment on above: mL/min/1.73m2 CKD-EP I Creatinine Equation (2020) Hematocrit Auto (Bld) [Volum e fraction]Ordered By: Shiela Quinn on 01-21-2025 Hematocrit (Bld) [Volume fraction] 42.2 % 40-54 [facility] [place] Hemoglobin measurementOrdere d By: Shiela Quinn on 01-21-2025 Hemoglobin (Bld) [Mass/Vol] 14.5 g/dL 13.0-16.5 [facility] [place] Immature granulocytes/100 WB C Auto (Bld)Ordered By: Shiela Quinn on 01-21-2025 Immature granulocytes/100 WBC (Bld) 0.700 % 0.0-0.9 [facility] [place] Comment on above: IG% - Immature Granu locytes (promyelocytes, myelocytes and metamyelocytes) > 1% indicates that a LEFT SHIFT is Present. Ketones Test strip Ql (U)Ord ered By: Shiela Quinn on 01-21-2025 Ketones Ql (U) 5 mg/dl High Negative [facility] [place] Laboratory - Chemistry and C hemistry - challengeOrdered By: Shiela Quinn on 01-21-2025 AST [Catalytic activity/Vol] 13 U/L <38 [facility] [place] MCV (mean corpuscular volume ) determinationOrdered By: Shiela Quinn on 01-21-2025 MCV (RBC) [Entitic vol] 87.6 fL 80-94 [facility] Magnesiumon 01-21-2025 Magnesium [Mass/Vol] 2.2 mg/dL Normal 1.5-2.2 [facility] Comment on above: Performed By: #### L 100.0100, L501.5200, L501.3620, L500.4050 #### [facility] [place] Laboratory [address] [facility] [place], [address] Magnesium measurement (mass/ volume)Ordered By: Shiela Quinn on 01-21-2025 Magnesium (Unsp spec) [Mass/Vol] 2.2 mg/dL 1.5-2.2 [facility] [place] Mean corpuscular hemoglobin (MCH) determinationOrdered By: Shiela Quinn on 01-21-2025 MCH (RBC) [Entitic mass] 30.1 pg 27.0-32.0 [facility] [place] Mean corpuscular hemoglobin concentration (MCHC) determinationOrdered By: Shiela Quinn on 01-21-2025 MCHC (RBC) [Mass/Vol] 34.4 g/dL 32-36 [facility] Mean platelet volume determi nationOrdered By: Shiela Quinn on 01-21-2025 Platelet mean volume (Bld) [Entitic vol] 10.6 fL 6.2-12.0 [facility] [place] Microscopic analysis of urin e for red blood cells (RBC)Ordered By: Shiela Quinn on 01-21-2025 Microscopic analysis of urine for red blood cells (RBC) 0-5 SEEN /hpf 0-5 [facility] [place] Monocyte percentageOrdered B y: Shiela Quinn on 01-21-2025 Monocytes/100 WBC (Bld) 9.0 % 0-10 [facility] Mucus LM Ql (Urine sed)Order ed By: Shiela Quinn on 01-21-2025 Mucus Ql (Urine sed) 0 SEEN /hpf [facility] Neutrophil percentageOrdered By: Shiela Quinn on 01-21-2025 Neutrophils/100 WBC (Bld) 80.6 % High 47-70 [facility] [place] Nitrite Test strip Ql (U)Ord ered By: Shiela Quinn on 01-21-2025 Nitrite Ql (U) Negative Negative [facility] [place] Nucleated red blood cell per centageOrdered By: Shiela Quinn on 01-21-2025 Nucleated RBC/100 WBC (Bld) [Ratio] 0 % 0-5 [facility] [place] Platelet countOrdered By: Miguel Quinn on 01-21-2025 Platelets (Bld) [#/Vol] 193 10*3/uL 150-450 [facility] [place] Platelet estimateOrdered By: Shiela Quinn on 01-21-2025 Platelets LM Ql (Bld) ADEQUATE ADEQ [facility] Potassium measurement (mass/ volume)Ordered By: Shiela Quinn on 01-21-2025 Potassium (Unsp spec) [Mass/Vol] 4.1 mmol/L 3.3-5.1 [facility] [place] Protein Test strip Ql (U)Ord ered By: Shiela Quinn on 01-21-2025 Protein Ql (U) 30 mg/dl High Negative [facility] [place] RBC Auto (Bld) [#/Vol]Ordere d By: Shiela Quinn on 01-21-2025 RBC (Bld) [#/Vol] 4.82 10*6/uL 4.6-6.2 [facility] Serum creatinine measurement (mass/volume)Ordered By: Shiela Quinn on 01-21-2025 Creatinine [Mass/Vol] 1.22 mg/dL High 0.70-1.20 [facility] Serum globulin measurementOr dered By: Shiela Qiunn on 01-21-2025 Globulin (S) [Mass/Vol] 3.3 g/dL 2.2-4.2 [facility] Serum glucose measurement (m ass/volume)Ordered By: Shiela Quinn on 01-21-2025 Glucose [Mass/Vol] 104 mg/dL High 70-99 [facility] Serum or plasma alanine salazar otransferase (ALT) measurementOrdered By: Shiela Quinn on 01-21-2025 ALT [Catalytic activity/Vol] 13 U/L <47 [facility] [place] Serum or plasma albumin jacob urement (mass/volume)Ordered By: Shiela Quinn on 01-21-2025 Albumin [Mass/Vol] 3.8 g/dL 3.5-5.0 [facility] Serum or plasma albumin/glob ulin mass ratioOrdered By: Shiela Quinn on 01-21-2025 Albumin/Globulin [Mass ratio] 1.2 {ratio} 0.9-2.4 [facility] [place] Serum or plasma alkaline roni sphatase measurementOrdered By: Shiela Quinn on 01-21-2025 ALP [Catalytic activity/Vol] 79 U/L 40-129 [facility] [place] Serum or plasma calcium jacob urement (mass/volume)Ordered By: Shiela Quinn on 01-21-2025 Calcium [Mass/Vol] 9.2 mg/dL 7.6-11.0 [facility] Serum or plasma creatine kin ase activityOrdered By: Shiela Quinn on 01-21-2025 CK [Catalytic activity/Vol] 82 U/L 24-195 [facility] [place] Serum or plasma urea nitroge n measurement (mass/volume)Ordered By: Shiela Quinn on 01-21-2025 Urea nitrogen [Mass/Vol] 10 mg/dL 4-19 [facility] [place] Sodium levelOrdered By: Aundrea Quinn on 01-21-2025 Sodium [Moles/Vol] 133 mmol/L 133-145 [facility] Squamous epithelial cells de tection in urine sediment by light microscopyOrdered By: Shiela Quinn on 01-21-2025 Epithelial cells.squamous LM Ql (Urine sed) 0-5 SEEN /hpf 0-5 [facility] [place] Total proteinOrdered By: Ivonne Quinn on 01-21-2025 Protein [Mass/Vol] 7.1 g/dL 5.9-8.4 [facility] Urinalysis, Completeon 01-21 EPI,SQUAMOUS 0-5 SEEN Normal 0-5 [facility] [place] Comment on above: Order Comment: CLEAN CATCH Performed By: #### L 400.0001 #### [facility] [place] Laboratory [address] [place], [address] RBC 0-5 SEEN Normal 0-5 [facility] [place] Comment on above: Order Comment: CLEAN CATCH Performed By: #### L 400.0001 #### [facility] [place] Laboratory [address] [place], [address] WBC 0-5 SEEN Normal 0-5 [facility] [place] Comment on above: Order Comment: CLEAN CATCH Performed By: #### L 400.0001 #### [facility] [place] Laboratory [address] [place], [address] BACTERIA 0 SEEN Normal None Seen [facility] [place] Comment on above: Order Comment: CLEAN CATCH Performed By: #### L 400.0001 #### [facility] [place] Laboratory [address] [place], [address] Mucus Ql (Urine sed) 0 SEEN Normal [facility] Comment on above: Order Comment: CLEAN CATCH Performed By: #### L 400.0001 #### [facility] [place] Laboratory [address] [place], [address] Urine clarityOrdered By: Ivonne Quinn on 01-21-2025 Clarity (U) Cloudy Clear [facility] [place] Urine color determinationOrd ered By: Shiela Quinn on 01-21-2025 Color (U) Yellow Yellow [facility] [place] Urine glucose detectionOrder ed By: Shiela Quinn on 01-21-2025 Glucose Ql (U) Normal mg/dl Normal [facility] [place] Urine leukocyte esterase det ection by dipstickOrdered By: Shiela Quinn on 01-21-2025 Leukocyte esterase Test strip Ql (U) Negative Negative [facility] [place] Urine pHOrdered By: Shiela huston on 01-21-2025 pH (U) 6.0 [pH] 5.0 - 8.0 [facility] [place] Urine sediment bacteria coun t by microscopy (number/high power field)Ordered By: Shiela Quinn on 01-21-2025 Bacteria LM.HPF (Urine sed) [#/Area] 0 /[HPF] None Seen [facility] [place] Urine specific gravity measu rementOrdered By: Shiela Quinn on 01-21-2025 Specific gravity (U) [Rel density] 1.020 1.002-1.030 [facility] [place] Urine urobilinogen measureme ntOrdered By: Shiela Quinn on 01-21-2025 Urobilinogen Ql (U) 1 mg/dl High Normal [facility] White blood cell (WBC) count Ordered By: Shiela Quinn on 01-21-2025 WBC (Bld) [#/Vol] 17.8 10*3/uL High 4.4-11.0 [facility] White blood cell countOrdere d By: Shiela Quinn on 01-21-2025 White blood cell count 0-5 SEEN /hpf 0-5 [facility] [place] Emergency Department Summary on 01-07-2025 Emergency Department Summary [facility] Medical Records Department [address] [place] [address] Emergency Department Summary 01/07/25 MR#: [id number] Acct: [id number] Name: GABRIELA VIDAL Rep #: [id number] : 1990 34 From: Stephan Burk MD [...] Reports olivia (more content not included)... Normal [facility] [place] CBC W/Diff, Automatedon 09-2 Absolute Lymph 2.83 X10 3/uL Normal 0.83-4.51 [facility] [place] Comment on above: Performed By: #### L 400.0001 #### [facility] [place] Laboratory [address] [place], [address] Absolute Neut 8.0 X10 3/uL High 2.0-7.7 [facility] [place] Comment on above: Performed By: #### L 400.0001 #### [facility] [place] Laboratory [address] [place], [address] Basophils/100 WBC (Bld) 0.3 % Normal 0-1 [facility] Comment on above: Performed By: #### L 400.0001 #### [facility] [place] Laboratory [address] [place], [address] Eosinophils/100 WBC (Bld) 0.4 % Normal 0-5 [facility] [place] Comment on above: Performed By: #### L 400.0001 #### [facility] [place] Laboratory [address] [place], [address] Erythrocyte distribution width (RBC) [Ratio] 13.2 % Normal 11.6-14.6 [facility] [place] Comment on above: Performed By: #### L 400.0001 #### [facility] [place] Laboratory [address] [place], [address] Hematocrit (Bld) [Volume fraction] 42.5 % Normal 40-54 [facility] [place] Comment on above: Performed By: #### L 400.0001 #### [facility] [place] Laboratory [address] [place], [address] Hemoglobin (Bld) [Mass/Vol] 13.8 g/dL Normal 13.0-16.5 [facility] [place] Comment on above: Performed By: #### L 400.0001 #### [facility] [place] Laboratory [address] [place], [address] IG% 0.400 Normal 0.0-0.9 [facility] [place] Comment on above: Result Comment: IG% - Immature Granulocytes (promyelocytes, myelocytes and metamyelocytes) > 1% indicates that a LEFT SHIFT is Present. Performed By: #### L 400.0001 #### [facility] [place] Laboratory [address] [place], [address] Lymphocytes/100 WBC (Bld) 22.9 % Normal 19-41 [facility] [place] Comment on above: Performed By: #### L 400.0001 #### [facility] [place] Laboratory [address] [facility] [address] [place], [address] MCH (RBC) [Entitic mass] 28.9 pg Normal 27.0-32.0 [facility] [place] Comment on above: Performed By: #### L 400.0001 #### [facility] [place] Laboratory [address] [place], [place] [address]. [place], [address] MCHC (RBC) [Mass/Vol] 32.5 g/dL Normal 32-36 [facility] Comment on above: Performed By: #### L 400.0001 #### [facility] [place] Laboratory [address] [place], [address] MCV (RBC) [Entitic vol] 89.1 fL Normal 80-94 [facility] Comment on above: Performed By: #### L 400.0001 #### [facility] [place] Laboratory [address] [place], [address] Monocytes/100 WBC (Bld) 11.6 % High 0-10 [facility] Comment on above: Performed By: #### L 400.0001 #### [facility] [place] Laboratory [address] [place], [address] Neutrophils/100 WBC (Bld) 64.4 % Normal 47-70 [facility] [place] Comment on above: Performed By: #### L 400.0001 #### [facility] [place] Laboratory [address] [place], [address] Nucleated RBC (Bld) [#/Vol] 0 10*3/uL Normal 0-5 [facility] [place] Comment on above: Performed By: #### L 400.0001 #### [facility] [place] Laboratory [address] [place], [address] Platelet mean volume (Bld) [Entitic vol] 10.4 fL Normal 6.2-12.0 [facility] [place] Comment on above: Performed By: #### L 400.0001 #### [facility] [place] Laboratory [address] [place], [address] Platelets (Bld) [#/Vol] 253 10*3/uL Normal 150-450 [facility] [place] Comment on above: Performed By: #### L 400.0001 #### [facility] [place] Laboratory [address] [place], [address] RBC (Bld) [#/Vol] 4.77 10*6/uL Normal 4.6-6.2 [facility] Comment on above: Performed By: #### L 400.0001 #### [facility] [place] Laboratory [address] [place], [address] RDW SD 43.4 fl Normal 35.1-43.9 [facility] [place] Comment on above: Performed By: #### L 400.0001 #### [facility] [place] Laboratory [address] [place], [address] WBC (Bld) [#/Vol] 12.4 10*3/uL High 4.4-11.0 [facility] Comment on above: Performed By: #### L 400.0001 #### [facility] [place] Laboratory [address] [place], [address] Chest 1 View (Portable)on Chest 1 View (Portable) [facility] [address] [place] [address] Chest 1 View (Portable) MR#: [id number] Acct: [id number] Name: GABRIELA VIDAL Jr. Rep #: [id number] : 1990 M 33 From: Daysi donovan MD PCP: ELOISA Braden Status: ADM IN Study: Chest 1 View (Portable) Date of Exam: 04/19/24 Exam# [id number] Ordering Dr: [place] [id number] HISTORY: eval covid pneumonia. TECHNIQUE: XR Chest 1 View. COMPARISON: 12/13/2023. FINDINGS: CARDIOMEDIASTINAL BORDERS: Cardiac silhouette within normal limits in size. Mediastinal contour unremarkable. LUNGS: Radiographically clear. PLEURA: No pleural effusion or pneumothorax seen. OSSEOUS STRUCTURES: Unremarkable. RAD/Chest 1 View (Portable) IMPRESSION: No acute cardiopulmonary process identified. Electronically Signed: Daysi Ayoub MD at 8:39 EDT , CC: MANA[facility] Shania Vieira; Dr. Fili Valencia DO Substitute Nurse: Signed Normal [facility] [place] Comprehensive Metabolic Prof ilon 04-19-2024 Albumin [Mass/Vol] 3.4 g/dL Normal 3.2-5.0 [facility] Comment on above: Performed By: #### L 400.0001 #### [facility] [place] Laboratory [address] [place], [address] Albumin/Globulin [Mass ratio] 1.2 {ratio} Normal 0.9-2.4 [facility] [place] Comment on above: Performed By: #### L 400.0001 #### [facility] [place] Laboratory [address] [place], [address] ALK P 56 U/L Normal 45-117 [facility] [place] Comment on above: Performed By: #### L 400.0001 #### [facility] [place] Laboratory [address] [place], [address] ALT [Catalytic activity/Vol] 51 U/L Normal 16-61 [facility] [place] Comment on above: Performed By: #### L 400.0001 #### [facility] [place] Laboratory [address] [place], [address] AST [Catalytic activity/Vol] 64 U/L High 15-37 [facility] [place] Comment on above: Performed By: #### L 400.0001 #### [facility] [place] Laboratory [address] [place], [address] Bilirubin [Mass/Vol] 1.20 mg/dL High 0.20-1.00 [facility] Comment on above: Result Comment: For patients on eltrombopag therapy, use of Dimension [place] TBIL is not recommended. Performed By: #### L 400.0001 #### [facility] [place] Laboratory [address] [place], [address] BUN/CRE 21.6 RATIO High 10-20 [facility] [place] Comment on above: Performed By: #### L 400.0001 #### [facility] [place] Laboratory [address] [place], [address] CA,Total 8.8 mg/dL Normal 8.5-10.1 [facility] [place] Comment on above: Performed By: #### L 400.0001 #### [facility] [place] Laboratory [address] [place], [address] Chloride [Moles/Vol] 108 mmol/L High 98-107 [facility] Comment on above: Performed By: #### L 400.0001 #### [facility] [place] Laboratory [address] [place], [address] CO2 [Moles/Vol] 27.0 mmol/L Normal 21.0-32.0 [facility] [place] Comment on above: Performed By: #### L 400.0001 #### [facility] [place] Laboratory [address] [place], [address] Creatinine [Mass/Vol] 1.16 mg/dL Normal 0.70-1.30 [facility] Comment on above: Result Comment: The validity of the calculated GFR GFRAA in patients over 70 years has not been determined. Clinical correlation is essential. Performed By: #### L 400.0001 #### [facility] [place] Laboratory [address] [place], [address] ECRCL 94.67 ml/min Normal [facility] [place] Comment on above: Performed By: #### L 400.0001 #### [facility] [place] Laboratory [address] [place], [address] EST GFR - AA 92 mL/min Normal >60 [facility] [place] Comment on above: Result Comment: Afri can [place] GFR Calc Performed By: #### L 400.0001 #### [facility] [place] Laboratory [address] [place], [address] GAP 3 Low 5-15 [facility] Comment on above: Performed By: #### L 400.0001 #### [facility] [place] Laboratory [address] [place], [address] GFR/1.73 sq M.predicted among non-blacks MDRD (S/P/Bld) [Vol rate/Area] 76 mL/min/{1.73_m2} Normal >60 [facility] Comment on above: Result Comment: Non- GFR Calc Performed By: #### L 400.0001 #### [facility] [place] Laboratory [address] [place], [address] Globulin (S) [Mass/Vol] 2.8 g/dL Normal 2.2-4.2 [facility] Comment on above: Performed By: #### L 400.0001 #### [facility] [place] Laboratory [address] [place], [address] Glucose [Mass/Vol] 100 mg/dL Normal 74-106 [facility] Comment on above: Result Comment: Fast ing Glucose result from 100 to 125 mg/dL suggests IMPAIRED HOMEOSTASIS per A.D.A. criteria. Performed By: #### L 400.0001 #### [facility] [place] Laboratory [address] [place], [address] Potassium [Moles/Vol] 4.4 mmol/L Normal 3.5-5.1 [facility] Comment on above: Performed By: #### L 400.0001 #### [facility] [place] Laboratory [address] [place], [place], [address] Sodium [Moles/Vol] 138 mmol/L Normal 136-145 [facility] Comment on above: Performed By: #### L 400.0001 #### [facility] [place] Laboratory [address] [place], [place], [address] T PROT 6.2 g/dL Low 6.4-8.2 [facility] [place] Comment on above: Performed By: #### L 400.0001 #### [facility] [place] Laboratory [address] [place], [place], [address] Urea nitrogen [Mass/Vol] 25 mg/dL High 7-18 [facility] [place] Comment on above: Performed By: #### L 400.0001 #### [facility] [place] Laboratory [address] [place], [place], [address] Discharge Instructionon 03-31 Discharge Instruction [facility] Medical Records Department [address] [place] [address] Instructions for Home/Discharge Instructions 04/19/24 1213 MR#: [id number] Acct: [id number] Name: GABRIELA VIDAL Jr. Rep #: [id number] : 1990 33 From: Fili Valencia DO [...] Referrals / Follow Up: Shania Vieira NP, MANAGER [facility] [Primary Care Provider] - Disposition Disposition (needs filled in before D/C Order can be placed): Home, Self Care 04/19/24 1215 Fili Valencia DO CC: MANAGER [facility] Shania Vieira; Dr. Lucero Vidal MD Signed Normal [facility] ENTERIC PATHOGEN PANEL STOOL on 04-19-2024 EP [...] VIBRIO Not Detected Yersinia Not Detected Normal [facility] Comment on above: Performed By: #### L 100.0100 #### [facility] [place] Laboratory [address] [facility] [place], [address] Abdomen/Pelvis without Conto n 04-18-2024 Abdomen/Pelvis without Cont [facility] [address], [place] [address] Abdomen/Pelvis without Cont MR#: [id number] Acct: [id number] Name: GABRIELA VIDAL Jr. Rep #: [id number] : 1990 M 33 From: [place] salcedo MD PCP: Shania Vieira NP-C Status: REG ER Study: Abdomen/Pelvis without Cont Date of Exam: 03/31 Exam# [id number] Ordering [place]: [place] [id number] EXAM: CT ABDOMEN AND PELVIS WITHOUT INTRAVENOUS [...] , CC: ELOISA Vieira; Esteban Medel DO Substitute Nurse: Signed Normal [facility] BNP,B-Type NATRIURETIC PEPTI Cornelia 04-18-2024 Natriuretic peptide B (Bld) [Mass/Vol] 14.3 pg/mL Normal 0-100 [facility] Comment on above: Performed By: #### L 100.0100 #### [facility] Laboratory [address] [place], [place], [id number] Basic Metabolic Profile (BMP )on 04-18-2024 BUN/CRE 10.8 RATIO Normal - [facility] Comment on above: Performed By: #### L 100.0100 #### [facility] Laboratory [address] [place], [address] CA,Total 10.2 mg/dL High 8.5-10.1 [facility] Comment on above: Performed By: #### L 100.0100 #### [facility] Laboratory [address] [place], [address] Chloride [Moles/Vol] 101 mmol/L Normal 98-107 [facility] Comment on above: Performed By: #### L 100.0100 #### [facility] Laboratory [address] [place], [address] CO2 [Moles/Vol] 20.0 mmol/L Low 21.0-32.0 [facility] Comment on above: Performed By: #### L 100.0100 #### [facility] Laboratory [address] [place], [address] Creatinine [Mass/Vol] 2.87 mg/dL High 0.70-1.30 [facility] Comment on above: Result Comment: The validity of the calculated GFR GFRAA in patients over 70 years has not been determined. Clinical correlation is essential. Performed By: #### L 100.0100 #### [facility] Laboratory [address] [place], [address] ECRCL 38.26 ml/min Normal [facility] Comment on above: Performed By: #### L 100.0100 #### [facility] Laboratory [address] [place], [address] EST GFR - AA 32 mL/min Low >60 [facility] Comment on above: Result Comment: Afri can Monegasque GFR Calc Performed By: #### L 100.0100 #### [facility] Laboratory [address] [place], [address] GAP 16 High 5-15 [facility] Comment on above: Performed By: #### L 100.0100 #### [facility] Laboratory [address] [place], [address] GFR/1.73 sq M.predicted among non-blacks MDRD (S/P/Bld) [Vol rate/Area] 27 mL/min/{1.73_m2} Low >60 [facility] Comment on above: Result Comment: Non- GFR Calc Performed By: #### L 100.0100 #### [facility] Laboratory [address] [place], [address] Glucose [Mass/Vol] 125 mg/dL High 74-106 [facility] Comment on above: Result Comment: Fast ing Glucose result from 100 to 125 mg/dL suggests IMPAIRED HOMEOSTASIS per A.D.A. criteria. Performed By: #### L 100.0100 #### [facility] Laboratory [address] [place], [address] Potassium [Moles/Vol] 4.5 mmol/L Normal 3.5-5.1 [facility] Comment on above: Performed By: #### L 100.0100 #### [facility] Laboratory [address] [place], [address] Sodium [Moles/Vol] 137 mmol/L Normal 136-145 [facility] Comment on above: Performed By: #### L 100.0100 #### [facility] Laboratory [address] [place], [address] Urea nitrogen [Mass/Vol] 31 mg/dL High 7-18 [facility] Comment on above: Performed By: #### L 100.0100 #### [facility] Laboratory [address] [place], [address] CBC W/Diff, Automatedon 09-2 0-2023 Absolute Lymph 1.05 X10 3/uL Normal 0.83-4.51 [facility] Comment on above: Performed By: #### L 400.0001 #### [facility] Laboratory [address] [place], [address] Absolute Neut 15.1 X10 3/uL High 2.0-7.7 [facility] Comment on above: Performed By: #### L 400.0001 #### [facility] Laboratory [address] [place], [address] Basophils/100 WBC (Bld) 0.1 % Normal 0-1 [facility] Comment on above: Performed By: #### L 400.0001 #### [facility] Laboratory [address] [place], [address] Eosinophils/100 WBC (Bld) 0.0 % Normal 0-5 [facility] Comment on above: Performed By: #### L 400.0001 #### [facility] Laboratory [address] [place], [address] Erythrocyte distribution width (RBC) [Ratio] 13.3 % Normal 11.6-14.6 [facility] Comment on above: Performed By: #### L 400.0001 #### [facility] Laboratory [address] [place], [address] Hematocrit (Bld) [Volume fraction] 43.8 % Normal 40-54 [facility] Comment on above: Performed By: #### L 400.0001 #### [facility] Laboratory [address] [place], [address] Hemoglobin (Bld) [Mass/Vol] 14.8 g/dL Normal 13.0-16.5 [facility] Comment on above: Performed By: #### L 400.0001 #### [facility] Laboratory [address] [place], [address] IG% 0.400 Normal 0.0-0.9 [facility] Comment on above: Result Comment: IG% - Immature Granulocytes (promyelocytes, myelocytes and metamyelocytes) > 1% indicates that a LEFT SHIFT is Present. Performed By: #### L 400.0001 #### [facility] Laboratory [address] [place], [address] Lymphocytes/100 WBC (Bld) 6.3 % Low 19-41 [facility] Comment on above: Performed By: #### L 400.0001 #### [facility] Laboratory [address] [place], [address] MCH (RBC) [Entitic mass] 29.5 pg Normal 27.0-32.0 [facility] Comment on above: Performed By: #### L 400.0001 #### [facility] Laboratory [address] [place], [address] MCHC (RBC) [Mass/Vol] 33.8 g/dL Normal 32-36 [facility] Comment on above: Performed By: #### L 400.0001 #### [facility] Laboratory [address] [place], [address] MCV (RBC) [Entitic vol] 87.3 fL Normal 80-94 [facility] Comment on above: Performed By: #### L 400.0001 #### [facility] Laboratory [address] [place], [address] Monocytes/100 WBC (Bld) 2.0 % Normal 0-10 [facility] Comment on above: Performed By: #### L 400.0001 #### [facility] Laboratory [address] [place], [address] Neutrophils/100 WBC (Bld) 91.2 % High 47-70 [facility] Comment on above: Performed By: #### L 400.0001 #### [facility] Laboratory [address] [place], [address] Nucleated RBC (Bld) [#/Vol] 0 10*3/uL Normal 0-5 [facility] Comment on above: Performed By: #### L 400.0001 #### [facility] Laboratory [address] [place], [address] Platelet mean volume (Bld) [Entitic vol] 10.2 fL Normal 6.2-12.0 [facility] Comment on above: Performed By: #### L 400.0001 #### [facility] Laboratory [address] [place], [address] Platelets (Bld) [#/Vol] 269 10*3/uL Normal 150-450 [facility] Comment on above: Performed By: #### L 400.0001 #### [facility] Laboratory [address] [place], [address] RBC (Bld) [#/Vol] 5.02 10*6/uL Normal 4.6-6.2 [facility] Comment on above: Performed By: #### L 400.0001 #### [facility] Laboratory [address] [place], [address] RDW SD 42.8 fl Normal 35.1-43.9 [facility] Comment on above: Performed By: #### L 400.0001 #### [facility] Laboratory [address] [place], [address] WBC (Bld) [#/Vol] 16.6 10*3/uL High 4.4-11.0 [facility] Comment on above: Performed By: #### L 400.0001 #### [facility] Laboratory [address] [place], [address] SMEAR COMMENT SCANNED Normal [facility] Comment on above: Result Comment: NEUT ROPHILLIA PRESENT Performed By: #### L 100.0100 #### [facility] Laboratory [address] [place], [address] CDIFF (PCR)on 04-18-2024 CDIFF Is the patient receiving laxatives? N New/unexplained onset of 3 or more stools in past 24 hrs? Y Pending 027 027 NAP1-B1 Presumptive Negative *for epidemiolologic???use C. Diff PCR Negative- No toxigenic C. Diff Detected Normal [facility] Comment on above: Performed By: #### L 100.0100 #### [facility] Laboratory [address] [place], [address] CPK Total, Creatine Kinaseon 04-18-2024 CPK TOTAL 790 U/L High 39-308 [facility] Comment on above: Order Comment: Comme nts: add to ED labs Performed By: #### L 268.0939 #### [facility] Laboratory [address] [place], [address] CRPon 04-18-2024 C-REACTIVE PROT 2.95 mg/L Normal 0.0-3.0 [facility] Comment on above: Order Comment: Comme nts: May add to ED labsmay add to ED labs Result Comment: C-Re active Protein (CRP) provides useful information for the diagnosis, therapy and monitoring of inflammatory processes and associated diseases. For the evaluation of Relative Risk for Cardiovascular Disease, a High Sensitivity CRP (HSCRP) should be ordered. Performed By: #### L 100.0100 #### [facility] Laboratory [address] [place], [address] Comprehensive Metabolic Prof ilon 04-18-2024 Albumin [Mass/Vol] 3.8 g/dL Normal 3.2-5.0 [facility] Comment on above: Performed By: #### L 400.0001 #### [facility] Laboratory [address] [place], [address] Albumin/Globulin [Mass ratio] 1.2 {ratio} Normal 0.9-2.4 [facility] Comment on above: Performed By: #### L 400.0001 #### [facility] Laboratory [address] [place], [address] ALK P 72 U/L Normal 45-117 [facility] Comment on above: Performed By: #### L 400.0001 #### [facility] Laboratory [address] [place], [address] ALT [Catalytic activity/Vol] 51 U/L Normal 16-61 [facility] Comment on above: Performed By: #### L 400.0001 #### [facility] Laboratory [address] [place], [address] AST [Catalytic activity/Vol] 62 U/L High 15-37 [facility] Comment on above: Performed By: #### L 400.0001 #### [facility] Laboratory [address] [place], [address] Bilirubin [Mass/Vol] 1.00 mg/dL Normal 0.20-1.00 [facility] Comment on above: Result Comment: For patients on eltrombopag therapy, use of Dimension [place] TBIL is not recommended. Performed By: #### L 400.0001 #### [facility] Laboratory [address] [place], [address] BUN/CRE 14.6 RATIO Normal 10-20 [facility] Comment on above: Performed By: #### L 400.0001 #### [facility] Laboratory [address] [place], [address] CA,Total 8.9 mg/dL Normal 8.5-10.1 [facility] Comment on above: Performed By: #### L 400.0001 #### [facility] Laboratory [address] [place], [address] Chloride [Moles/Vol] 109 mmol/L High 98-107 [facility] Comment on above: Performed By: #### L 400.0001 #### [facility] Laboratory [address] [place], [address] CO2 [Moles/Vol] 20.0 mmol/L Low 21.0-32.0 [facility] Comment on above: Performed By: #### L 400.0001 #### [facility] Laboratory [address] [place], [address] Creatinine [Mass/Vol] 1.64 mg/dL High 0.70-1.30 [facility] Comment on above: Result Comment: The validity of the calculated GFR GFRAA in patients over 70 years has not been determined. Clinical correlation is essential. Performed By: #### L 400.0001 #### [facility] Laboratory [address] [place], [address] ECRCL 66.96 ml/min Normal [facility] Comment on above: Performed By: #### L 400.0001 #### [facility] Laboratory [address] [place], [address] EST GFR - AA 62 mL/min Normal >60 [facility] Comment on above: Result Comment: Afri can [place] GFR Calc Performed By: #### L 400.0001 #### [facility] Laboratory [address] [place], [address] GAP 10 Normal 5-15 [facility] Comment on above: Performed By: #### L 400.0001 #### [facility] Laboratory [address] [place], [address] GFR/1.73 sq M.predicted among non-blacks MDRD (S/P/Bld) [Vol rate/Area] 51 mL/min/{1.73_m2} Low >60 [facility] Comment on above: Result Comment: Non- GFR Calc Performed By: #### L 400.0001 #### [facility] Laboratory [address] [place], [address] Globulin (S) [Mass/Vol] 3.1 g/dL Normal 2.2-4.2 [facility] Comment on above: Performed By: #### L 400.0001 #### [facility] Laboratory [address] [place], [address] Glucose [Mass/Vol] 116 mg/dL High 74-106 [facility] Comment on above: Result Comment: Fast ing Glucose result from 100 to 125 mg/dL suggests IMPAIRED HOMEOSTASIS per A.D.A. criteria. Performed By: #### L 400.0001 #### [facility] Laboratory [address] [place], [address] Potassium [Moles/Vol] 4.2 mmol/L Normal 3.5-5.1 [facility] Comment on above: Performed By: #### L 400.0001 #### [facility] Laboratory [address] [place], [address] Sodium [Moles/Vol] 139 mmol/L Normal 136-145 [facility] Comment on above: Performed By: #### L 400.0001 #### [facility] Laboratory [address] [place], [place], [address] T PROT 6.9 g/dL Normal 6.4-8.2 [facility] Comment on above: Performed By: #### L 400.0001 #### [facility] Laboratory [address] [place], [place], [address] Urea nitrogen [Mass/Vol] 24 mg/dL High 7-18 [facility] Comment on above: Performed By: #### L 400.0001 #### [facility] Laboratory [address] [place], [place], [address] D-Dimer Quantitative (DVT/PE )on 04-18-2024 D-DIMER QUANT 0.39 FEU/ug/m Normal 0.27-0.49 [facility] Comment on above: Result Comment: NORM AL D-Dimer level (<0.50) indicates no DVT or PE. Performed By: #### L 100.0100 #### [facility] Laboratory [address] [place], [place], [address] Emergency Department Summary on 04-18-2024 Emergency Department Summary [facility] Medical Records Department [address] [place], [place] [address] [place] [address] Emergency Department Summary 04/18/24 MR#: [id number] Acct: [id number] Name: GABRIELA VIDAL JrJohn Rep #: [id number] : 1990 33 From: Esteban Medel DO PCP: ELOISA Braden Status:ADM IN Location: [address] History of Present Illness Chief Complaint: [...] viral st (more content not included)... Normal [facility] Erythrocyte Sed Rateon 04-18 SED RATE Normal 0-20 [facility] Comment on above: Result Comment: JIMMY ASKEW RN AWARE OF CANCELLING, SHE WILL INFORM Performed By: #### L 100.0100 #### [facility] Laboratory [address] [place], [address] Ferritinon 04-18-2024 Ferritin [Mass/Vol] 175 ng/mL Normal 26-388 [facility] Comment on above: Order Comment: Comme nts: May add to ED labsmay add to ED labs Performed By: #### L 100.0100 #### [facility] Laboratory [address] [place], [address] H AND P Exam - Hospitaliston 04-18-2024 H&P Exam - Hospitalist [facility] Medical Records Department [address] [place] [address] H P Exam - Hospitalist 04/18/24 0228 MR#: [id number] Acct: [id number] Name: GABRIELA VIDAL Jr. Rep #: [id number] : 1990 33 From: Lucero Vidal MD PCP: Shania Vieira, MANAGER GOLF-C Status:ADM IN [facility] HPI - General General Date of Admission: 04/18/24 Date of Service: 04/18/24 Chief Complaint: N/V/D HPI Narrative The patient is a 33 y/o M w/ PMHx: Anxiety and Depression/Mood disorder/High suspicion underlying schizophrenia with history of frequent auditory hallucinations, Tobacco use, CKD stage II per GFR trending, History of Polysubstance abuse (Fentanyl, Methamphetamines per prior records) who presents to the [facility] ED on 04/18/24 with history [...] Examination: Genera (more content not included)... Normal [facility] HIV - WCHon 04-18-2024 HIV Non-Reactive Normal Nonreactive [facility] Comment on above: Order Comment: Comme nts: add to ED labs Performed By: #### L 501.3620 #### [facility] Laboratory [address] [place], [place], [address] Hepatitis B Surface Antibody on 04-18-2024 HEP B Surf Ab Non-Reactive Normal [facility] Comment on above: Order Comment: Comme nts: add to ED labs Result Comment: Non Reactive: Inconsistent with immunity less than <10 mIU/mL Reactive: Consistent with immunity greater than or equal to 10 mIU/mL Performed By: #### L 501.3620 #### [facility] Laboratory [address] [place], [place], [address] Hepatitis B Surface Antigeno n 04-18-2024 HEP B Surf Ag Non-Reactive Normal Nonreactive [facility] Comment on above: Order Comment: Comme nts: add to ED labs Performed By: #### L 501.3620 #### [facility] Laboratory [address] [facility] [place], [place], [address] Hepatitis C Antibodyon 04-18 Hepatitis C AB [facility]active [facility] Comment on above: Order Comment: Comme nts: add to ED labs Result Comment: Non Reactive: < 0.8 Equivocal: >/= 0.8 to < 1.0 Reactive: >/= 1.0 The CDC requires that a reactive/equivocal HCV antibody result be sent out for confirmation. HCV Quant by PCR testing. Performed By: #### L 501.3620 #### [facility] Laboratory [address] [place], [address] L509.8000on 04-18-2024 Syphilis Abs Non-Reactive Normal [facility] Comment on above: Order Comment: CLEAN CATCH Performed By: #### L 400.0001 #### [facility] Laboratory [address] [place], [address] LDHon 04-18-2024 LDH 338 U/L High 87-241 [facility] Comment on above: Order Comment: Comme nts: May add to ED labsmay add to ED labs Performed By: #### L 100.0100 #### [facility] Laboratory [address] [place], [address] Lipaseon 04-18-2024 Lipase [Catalytic activity/Vol] 17 U/L Normal 13-75 [facility] Comment on above: Result Comment: Aniyah castañeda note: LIPASE revised reference range effective 22. New Lipase methodology. Expected to produce lower values than the previous assay method. NEW Reference Range: 13 - 75 U/L Performed By: #### L 100.0100 #### [facility] Laboratory [address] [place], [address] Liver Profileon 04-18-2024 Albumin [Mass/Vol] 4.8 g/dL Normal 3.2-5.0 [facility] Comment on above: Performed By: #### L 100.0100 #### [facility] Laboratory [address] [place], [place], [address] ALK P 85 U/L Normal 45-117 [facility] Comment on above: Performed By: #### L 100.0100 #### [facility] Laboratory [address] [place], [address] ALT [Catalytic activity/Vol] 61 U/L Normal 16-61 [facility] Comment on above: Performed By: #### L 100.0100 #### [facility] Laboratory [address] [place], [address] AST [Catalytic activity/Vol] 59 U/L High 15-37 [facility] Comment on above: Performed By: #### L 100.0100 #### [facility] Laboratory [address] [place], [address] Bilirubin [Mass/Vol] 1.50 mg/dL High 0.20-1.00 [facility] Comment on above: Result Comment: For patients on eltrombopag therapy, use of Dimension [place] TBIL is not recommended. Performed By: #### L 100.0100 #### [facility] Laboratory [address] [place], [address] Bilirubin.direct [Mass/Vol] 0.37 mg/dL High 0.00-0.30 [facility] Comment on above: Performed By: #### L 100.0100 #### [facility] Laboratory [address] [place], [address] Globulin (S) [Mass/Vol] 3.6 g/dL Normal 2.2-4.2 [facility] Comment on above: Performed By: #### L 100.0100 #### [facility] Laboratory [address] [place], [address] T PROT 8.4 g/dL High 6.4-8.2 [facility] Comment on above: Performed By: #### L 100.0100 #### [facility] Laboratory [address] [place], [address] M100.678on 04-18-2024 M100.678 Copy of report sent to Infection Control Printer MS#[id number] 04/18/24 1335 ERICKA. CRITICAL VALUE CALLED TO LSPARR 04/18/24 0122 Abundio Leon. RESULTS READ BACK BY SAME. SARS-CoV-2 (COVID 19) A Positive A INFLUENZA A Negative INFLUENZA B Negative RSV PCR Negative SARS-CoV-2 (COVID 19 PCR) Normal [facility] Comment on above: Performed By: #### L 400.0001 #### [facility] Laboratory [address] [place], [address] Magnesiumon 04-18-2024 Magnesium [Mass/Vol] 2.2 mg/dL Normal 1.6-2.6 [facility] Comment on above: Performed By: #### L 100.0100 #### [facility] Laboratory [address] [place], [address] Procalcitoninon 04-18-2024 Procalcitonin 3.46 ng/mL High 0.00-0.09 [facility] Comment on above: Result Comment: A procalcitonin [...] <2 ng/mL are obtained. Performed By: #### L 100.0100 #### [facility] Laboratory [address] [place], [address] Urine Drug Screen (VISTA)on 04-18-2024 AMPHETAMINES Positive Abnormal <1000 ng/mL [facility] Comment on above: Performed By: #### L 100.0100 #### [facility] Laboratory [address] [place], [address] BARBITIURATES Negative Normal < 200 ng/mL [facility] Comment on above: Performed By: #### L 100.0100 #### [facility] Laboratory [address] [place], [address] BENZODIAZIPINE Negative Normal < 200 ng/mL [facility] Comment on above: Performed By: #### L 100.0100 #### [facility] Laboratory [address] [place], [address] COCAINE Negative Normal < 300 ng/mL [facility] Comment on above: Performed By: #### L 100.0100 #### [facility] Laboratory [address] [place], [address] ECSTACY Positive Abnormal < 500 ng/mL [facility] Comment on above: Performed By: #### L 100.0100 #### [facility] Laboratory [address] [place], [address] METHADONE Negative Normal < 300 ng/mL [facility] Comment on above: Performed By: #### L 100.0100 #### [facility] Laboratory [address] [place], [address] OPIATES Negative Normal < 300 ng/mL [facility] Comment on above: Performed By: #### L 100.0100 #### [facility] Laboratory [address] [place], [address] PCP Negative Normal < 25 ng/mL [facility] Comment on above: Performed By: #### L 100.0100 #### [facility] Laboratory [address] [place], [address] THC Positive Abnormal < 50 ng/mL [facility] Comment on above: Performed By: #### L 100.0100 #### [facility] Laboratory [address] [place], [address] VISTA UDS PH 3 Normal [facility] Comment on above: Performed By: #### L 100.0100 #### [facility] Laboratory [address] [place], [address] Absolute lymphocyte countOrd ered By: Jose E Meier on 09-28-2023 Lymphocytes Auto (Unsp spec) [#/Vol] 1.95 10*3/uL 0.83-4.51 [facility] Automated lymphocyte count a s percentage of total leukocytesOrdered By: Jose E Meier on 09-28-2023 Lymphocytes/100 WBC Auto (Unsp spec) 19.5 % 19-41 [facility] Basophil percentageOrdered B y: Jose E Meier on 09-28-2023 Basophils/100 WBC (Bld) 0.5 % 0-1 [facility] Chloride [Moles/Vol] 113 mmol/L 98-107 [facility] Eosinophils/100 WBC (Bld) 0.3 % 0-5 [facility] Glucose [Mass/Vol] 114 mg/dL 74-106 [facility] Comment on above: Fasting Glucose resu lt from 100 to 125 mg/dL suggests IMPAIRED HOMEOSTASIS per A.D.A. criteria. Hemoglobin (Bld) [Mass/Vol] 14.9 g/dL 13.0-16.5 [facility] Monocytes/100 WBC (Bld) 5.9 % 0-10 [facility] Neutrophils (Bld) [#/Vol] 7.3 10*3/uL 2.0-7.7 [facility] Neutrophils/100 WBC (Bld) 73.3 % 47-70 [facility] Potassium [Moles/Vol] 3.7 mmol/L 3.5-5.1 [facility] Sodium [Moles/Vol] 143 mmol/L 136-145 [facility] WBC (Bld) [#/Vol] 10.0 10*3/uL 4.4-11.0 [facility] Determination of erythrocyte mean corpuscular volume (MCV)Ordered By: Jose E Meier on 09-28-2023 MCV (RBC) [Entitic vol] 89.6 fL 80-94 [facility] Erythrocyte distribution wid th ratioOrdered By: Jose E Meier on 09-28-2023 Erythrocyte distribution width (RBC) [Ratio] 12.3 % 11.6-14.6 [facility] Erythrocyte distribution wid th standard deviationOrdered By: Jose E Meier on 09-28-2023 Erythrocyte distribution width (RBC) [Entitic vol] 40.1 fL 35.1-43.9 [facility] Hematocrit Auto (Bld) [Volum e fraction]Ordered By: Jose E Meier on 09-28-2023 Hematocrit (Bld) [Volume fraction] 44.8 % 40-54 [facility] Immature granulocytes/100 WB C Auto (Bld)Ordered By: Jose E Meier on 09-28-2023 Immature granulocytes/100 WBC (Bld) 0.500 % 0.0-0.9 [facility] Comment on above: IG% - Immature Granu locytes (promyelocytes, myelocytes and metamyelocytes) > 1% indicates that a LEFT SHIFT is Present. Laboratory - Chemistry and C hemistry - challengeOrdered By: Jose E Meier on 09-28-2023 CO2 [Moles/Vol] 28.0 mmol/L 21.0-32.0 [facility] Urea nitrogen/Creatinine [Mass ratio] 15.7 mg/mg 10-20 [facility] Laboratory - Drug toxicology Ordered By: Jose E Meier on 09-28-2023 Amphetamines Ql (U) Negative <1000 ng/mL [facility] Benzodiazepines Ql (U) Negative < 200 ng/mL [facility] Cannabinoids Screen Ql (U) Positive < 50 ng/mL [facility] Cocaine Ql (U) Negative < 300 ng/mL [facility] Opiates Ql (U) Negative < 300 ng/mL [facility] Laboratory - Hematology and Cell countsOrdered By: Jose E Meier on 09-28-2023 MCH (RBC) [Entitic mass] 29.8 pg 27.0-32.0 [facility] MCHC (RBC) [Mass/Vol] 33.3 g/dL 32-36 [facility] Nucleated RBC/100 WBC (Bld) [Ratio] 0 % 0-5 [facility] Platelet mean volume (Bld) [Entitic vol] 10.8 fL 6.2-12.0 [facility] Platelets (Bld) [#/Vol] 256 10*3/uL 150-450 [facility] Laboratory - Microbiology an d Antimicrobial susceptibilityOrdered By: Jose E Meier on 09-28-2023 SARS-CoV-2 (COVID-19) RNA CARLOS+probe Ql (Unsp spec) [facility] No Panel InformationOrdered By: Jose E Meier on 09-28-2023 Estimated Creatinine Clearance Calc 105.36 ml/min [facility] Estimated GFR (MDRD) Amer 107 mL/min >60 [facility] Comment on above: GFR Calc Estimated GFR (MDRD) Non-Af Amer 88 mL/min >60 [facility] Comment on above: Non- GFR Calc Ethyl Alcohol Level 4.0 mg/dL [facility] Comment on above: The serum:whole bloo d ethanol ratio is approximately 1.14and varies slightly with hematocrit. Medical Alcohol reference interval and critical value innon-tolerant individuals; 50 - 100 Impairment 100 Intoxication 100 - 250 Severe Poisoning 250 - 400 Deep/possible fatal coma MDMA (Ecstasy) Screen Negative < 500 ng/mL [facility] Urine Barbiturates Screen Negative < 200 ng/mL [facility] Urine Drug Screen Comment [facility] Comment on above: CONFIRMATORY TESTING FOR ALL [...] Methadone Screen Negative < 300 ng/mL [facility] RBC Auto (Bld) [#/Vol]Ordere d By: Jose E Meier on 09-28-2023 RBC (Bld) [#/Vol] 5.00 10*6/uL 4.6-6.2 [facility] Serum or plasma calcium jacob urement (mass/volume)Ordered By: Jose E Meier on 09-28-2023 Calcium [Mass/Vol] 8.7 mg/dL 8.5-10.1 [facility] Serum or plasma creatinine m easurement (mass/volume)Ordered By: Jose E Meier on 09-28-2023 Creatinine [Mass/Vol] 1.02 mg/dL 0.70-1.30 [facility] Comment on above: The validity of the calculated GFR & GFRAA in patients over 70 years has not been determined. Clinical correlation is essential. Serum or plasma urea nitroge n measurement (mass/volume)Ordered By: Jose E Meier on 09-28-2023 Urea nitrogen [Mass/Vol] 16 mg/dL 7-18 [facility] Thin prep Papanicolaou smear with manual screeningOrdered By: Jos eE Meier on 09-28-2023 Thin prep Papanicolaou smear with manual screening 2 5-15 [facility] Urine phencyclidine (PCP) de tectionOrdered By: Jose E Meier on 09-28-2023 Phencyclidine Ql (U) Negative < 25 ng/mL [facility] ALLIED HEALTHon 01-29-2023 ALLIED HEALTH HNO ID: [id number] Author: RT Latoya(R) Service: Radiology Author Type: Lacing Cutter Type: Allied Health Filed: 01/29/2023 1:10 PM [...] Latoya(R) January 29, 2023 1:10 PM Normal [facility] CBC W Auto Differential pane l (Bld)on 01-29-2023 Basophils (Bld) [#/Vol] 0.03 10*3/uL Normal <0.11 [facility] Comment on above: Order Comment: Speci men Type: BLOOD SPECIMEN Ordering Facility: [facility] Address: [address] [place] [id number] Performed By: #### 5 7021-8 #### [facility] CLIA [id number] [address] [place] [address] [place] Basophils/100 WBC (Bld) 0.5 % Normal [facility] Comment on above: Order Comment: Speci men Type: BLOOD SPECIMEN Ordering Facility: [facility] Address: [address] [place] [address] Performed By: #### 5 7021-8 #### [facility] CLIA [id number] [place] [address] [place] Differential cell count method Nom (Bld) Auto Normal [facility] Comment on above: Order Comment: Speci men Type: BLOOD SPECIMEN Ordering Facility: [facility] Address: [address] [place] [address] Performed By: #### 5 7021-8 #### [facility] CLIA [id number] [address] [place] [address] [place] Eosinophils (Bld) [#/Vol] 0.16 10*3/uL Normal <0.46 [facility] Comment on above: Order Comment: Speci men Type: BLOOD SPECIMEN Ordering Facility: [facility] Address: [address] [place] [address] Performed By: #### 5 7021-8 #### [facility] CLIA [id number] [address] [place] [address] [place] Eosinophils/100 WBC (Bld) 2.4 % Normal [facility] Comment on above: Order Comment: Speci men Type: BLOOD SPECIMEN Ordering Facility: [facility] Address: [address] [place] [address] Performed By: #### 5 7021-8 #### [facility] CLIA [id number] [address] [place] [address] [place] Erythrocyte distribution width (RBC) [Ratio] 12.7 % Normal 11.5-15.0 [facility] Comment on above: Order Comment: Speci men Type: BLOOD SPECIMEN Ordering Facility: [facility] Address: [address] [address] Performed By: #### 5 7021-8 #### [facility] CLIA [id number] [address] [place] [address] [place] Hematocrit (Bld) [Volume fraction] 39.3 % Normal 39.0-51.0 [facility] Comment on above: Order Comment: Speci men Type: BLOOD SPECIMEN Ordering Facility: [facility] Address: [address] [place] [address] Performed By: #### 5 7021-8 #### [facility] CLIA [id number] [address] [place] [address] [place] Hemoglobin (Bld) [Mass/Vol] 13.1 g/dL Normal 13.0-17.0 [facility] Comment on above: Order Comment: Speci men Type: BLOOD SPECIMEN Ordering Facility: [facility] Address: [address] [place] [address] Performed By: #### 5 7021-8 #### [facility] CLIA [id number] [address] [place] [address] [place] Immature granulocytes (Bld) [#/Vol] 0.03 10*3/uL Normal <0.10 [facility] Comment on above: Order Comment: Speci men Type: BLOOD SPECIMEN Ordering Facility: [facility] Address: [address] [place] [address] Performed By: #### 5 7021-8 #### [facility] CLIA [id number] [address] [place] [address] [place] Immature granulocytes/100 WBC (Bld) 0.5 % Normal [facility] Comment on above: Order Comment: Speci men Type: BLOOD SPECIMEN Ordering Facility: [facility] Address: [address] [place] [address] Performed By: #### 5 7021-8 #### [facility] CLIA [id number] [address] [place] [address] [place] Lymphocytes (Bld) [#/Vol] 3.11 10*3/uL Normal 1.00-4.00 [facility] Comment on above: Order Comment: Speci men Type: BLOOD SPECIMEN Ordering Facility: [facility] Address: [address] [place] [address] Performed By: #### 5 7021-8 #### [facility] CLIA [id number] [place] [address] [place] Lymphocytes/100 WBC (Bld) 47.3 % Normal [facility] Comment on above: Order Comment: Speci men Type: BLOOD SPECIMEN Ordering Facility: [facility] Address: [address] [place] [address] Performed By: #### 5 7021-8 #### [facility] CLIA [id number] [address] [place] [address] [place] MCH (RBC) [Entitic mass] 30.0 pg Normal 26.0-34.0 [facility] Comment on above: Order Comment: Speci men Type: BLOOD SPECIMEN Ordering Facility: [facility] Address: [address] [place] [address] Performed By: #### 5 7021-8 #### [facility] CLIA [id number] [address] [place] [address] [place] MCHC (RBC) [Mass/Vol] 33.3 g/dL Normal 30.5-36.0 [facility] Comment on above: Order Comment: Speci men Type: BLOOD SPECIMEN Ordering Facility: [facility] Address: [address] [place] [address] Performed By: #### 5 7021-8 #### [facility] CLIA [id number] [address] [place] [address] [place] MCV (RBC) [Entitic vol] 90.1 fL Normal 80.0-100.0 [facility] Comment on above: Order Comment: Speci men Type: BLOOD SPECIMEN Ordering Facility: [facility] Address: [address] [place] [address] Performed By: #### 5 7021-8 #### [facility] CLIA [id number] [address] [place] [address] [place] Monocytes (Bld) [#/Vol] 0.65 10*3/uL Normal <0.87 [facility] Comment on above: Order Comment: Speci men Type: BLOOD SPECIMEN Ordering Facility: [facility] Address: [address] [place] [address] Performed By: #### 5 7021-8 #### [facility] CLIA [id number] [place] [address] [place] Monocytes/100 WBC (Bld) 9.9 % Normal [facility] Comment on above: Order Comment: Speci men Type: BLOOD SPECIMEN Ordering Facility: [facility] Address: [address] [place] [address] Performed By: #### 5 7021-8 #### [facility] CLIA [id number] [address] [place] [address] [place] Neutrophils (Bld) [#/Vol] 2.59 10*3/uL Normal 1.45-7.50 [facility] Comment on above: Order Comment: Speci men Type: BLOOD SPECIMEN Ordering Facility: [facility] Address: [address] [place] [address] Performed By: #### 5 7021-8 #### [facility] CLIA [id number] [address] [place] [address] [place] Neutrophils/100 WBC (Bld) 39.4 % Normal [facility] Comment on above: Order Comment: Speci men Type: BLOOD SPECIMEN Ordering Facility: [facility] Address: [address] [place] [address] Performed By: #### 5 7021-8 #### [facility] CLIA [id number] [address] [place] [address] [place] Nucleated RBC (Bld) [#/Vol] 10*3/uL Normal <0.01 [facility] Comment on above: Order Comment: Speci men Type: BLOOD SPECIMEN Ordering Facility: [facility] Address: [address] [address] Performed By: #### 5 7021-8 #### [facility] CLIA [id number] [address] [place] [address] [place] Nucleated RBC/100 WBC (Bld) [Ratio] 0.0 /100 WBC Normal [facility] Comment on above: Order Comment: Speci men Type: BLOOD SPECIMEN Ordering Facility: [facility] Address: [address] [address] Performed By: #### 5 7021-8 #### [facility] CLIA [id number] [address] [place] [address] [place] Platelet mean volume (Bld) [Entitic vol] 10.9 fL Normal 9.0-12.7 [facility] Comment on above: Order Comment: Speci men Type: BLOOD SPECIMEN Ordering Facility: [facility] Address: [address] [address] Performed By: #### 5 7021-8 #### [facility] CLIA [id number] [address] [place] [address] [place] Platelets (Bld) [#/Vol] 209 10*3/uL Normal 150-400 [facility] Comment on above: Order Comment: Speci men Type: BLOOD SPECIMEN Ordering Facility: [facility] Address: [address] [address] Performed By: #### 5 7021-8 #### [facility] CLIA [id number] [address] [place] [address] [place] RBC (Bld) [#/Vol] 4.36 10*6/uL Normal 4.20-6.00 [facility] Comment on above: Order Comment: Speci men Type: BLOOD SPECIMEN Ordering Facility: [facility] Address: [address] [address] Performed By: #### 5 7021-8 #### [facility] CLIA [id number] [address] [place] [address] [place] WBC (Bld) [#/Vol] 6.57 10*3/uL Normal 3.70-11.00 [facility] Comment on above: Order Comment: Speci men Type: BLOOD SPECIMEN Ordering Facility: [facility] Address: [address] [place] [address] Performed By: #### 5 7021-8 #### [facility] CLIA [id number] [address] [place] [address] [place] Comprehensive metabolic 2000 panelon 01-29-2023 Albumin [Mass/Vol] 3.6 g/dL Low 3.9-4.9 [facility] Comment on above: Order Comment: Speci men Type: BLOOD SPECIMEN Ordering Facility: [facility] Address: [address] [place] [address] Performed By: #### 1 9123-9, [id number], 61535-6 #### [facility] [place] [id number] [place] [address] [place] ALP [Catalytic activity/Vol] 46 U/L Normal 38-113 [facility] Comment on above: Order Comment: Speci men Type: BLOOD SPECIMEN Ordering Facility: [facility] Address: [address] [place] [address] Performed By: #### 1 9123-9, [id number], 39188-8 #### [facility] CLIA [id number] [address] [place] [address] [place] ALT [Catalytic activity/Vol] 13 U/L Normal 10-54 [facility] Comment on above: Order Comment: Speci men Type: BLOOD SPECIMEN Ordering Facility: [facility] Address: [address] [place] [address] Performed By: #### 1 9123-9, [id number], 74416-0 #### [facility] CLIA [id number] [address] [place] [address] [place] Anion gap [Moles/Vol] 7 mmol/L Low 9-18 [facility] Comment on above: Order Comment: Speci men Type: BLOOD SPECIMEN Ordering Facility: [facility] Address: [address] [address] Performed By: #### 1 9123-9, [id number], #### [facility] CLIA [id number] [place] [address] [place] AST [Catalytic activity/Vol] 16 U/L Normal 14-40 [facility] Comment on above: Order Comment: Speci men Type: BLOOD SPECIMEN Ordering Facility: [facility] Address: [address] [address] Performed By: #### 1 9123-9, [id number], #### [facility] CLIA [id number] [address] [place] [address] [place] Bilirubin [Mass/Vol] 0.4 mg/dL Normal 0.2-1.3 [facility] Comment on above: Order Comment: Speci men Type: BLOOD SPECIMEN Ordering Facility: [facility] Address: [address] [place] [address] Performed By: #### 1 9123-9, [id number], #### [facility] CLIA [id number] [address] [place] [address] [place] Calcium [Mass/Vol] 8.4 mg/dL Low 8.5-10.2 [facility] Comment on above: Order Comment: Speci men Type: BLOOD SPECIMEN Ordering Facility: [facility] Address: [address] Performed By: #### 1 9123-9, [id number], #### [facility] CLIA [id number] [address] [place] [address] [place] Chloride [Moles/Vol] 108 mmol/L High 97-105 [facility] Comment on above: Order Comment: Speci men Type: BLOOD SPECIMEN Ordering Facility: [facility] Address: [address] [place] [address] Performed By: #### 1 9123-9, [id number], 27403-7 #### [facility] CLIA [id number] [place] [address] [place] CO2 [Moles/Vol] 26 mmol/L Normal 22-30 [facility] Comment on above: Order Comment: Speci men Type: BLOOD SPECIMEN Ordering Facility: [facility] Address: [address] [place] [address] Performed By: #### 1 9123-9, [id number], #### [facility] CLIA [id number] [place] [address] [place] Creatinine [Mass/Vol] 1.14 mg/dL Normal 0.73-1.22 [facility] Comment on above: Order Comment: Speci men Type: BLOOD SPECIMEN Ordering Facility: [facility] Address: [facility] [place] [address] Performed By: #### 1 9123-9, [id number], #### [facility] CLIA [id number] [address] [place] [address] [place] ESTIMATED GLOMERULAR FILTRATION RATE 87 mL/min/1.73m??? Normal >=60 [facility] Comment on above: Order Comment: Speci men Type: BLOOD SPECIMEN Ordering Facility: [facility] Address: [address] [place] [address] [place] [address] Result Comment: Cathy mated Glomerular Filtration Rate [...] actual GFR. Performed By: #### 1 9123-9, [id number], 98901-5 #### [facility] CLIA [id number] [address] [place] [address] [place] Glucose [Mass/Vol] 115 mg/dL High 74-99 [facility] Comment on above: Order Comment: Cristela ness Type: BLOOD SPECIMEN Ordering Facility: [facility] Address: [address] [place] [address] Result Comment: The [place] [employer] (ADA) provides guidance for cutoff [...] Standards of Medical Care in Diabetes 2016, [place] [employer]. Diabetes Care. 2016.39(Suppl 1). Performed By: #### 1 9123-9, [id number], 43194-4 #### [facility] CLIA [id number] [address] [place] [address] [place] Potassium [Moles/Vol] 4.1 mmol/L Normal 3.7-5.1 [facility] Comment on above: Order Comment: Cristela ness Type: BLOOD SPECIMEN Ordering Facility: [facility] Address: [place] [address] Performed By: #### 1 9123-9, [id number], 17413-2 #### [facility] CLIA [id number] [address] [place] [address] [place] Protein [Mass/Vol] 5.5 g/dL Low 6.3-8.0 [facility] Comment on above: Order Comment: Cristela ness Type: BLOOD SPECIMEN Ordering Facility: [facility] Address: [address] [place] [address] Performed By: #### 1 9123-9, [id number], 26097-8 #### [facility] CLIA [id number] [place] [address] [place] Sodium [Moles/Vol] 141 mmol/L Normal 136-144 [facility] Comment on above: Order Comment: Speci men Type: BLOOD SPECIMEN Ordering Facility: [facility] Address: [address] [place] [id number] Performed By: #### 1 9123-9, [id number], 93372-5 #### [facility] CLIA [id number] [address] OF [facility] Urea nitrogen [Mass/Vol] 12 mg/dL Normal 9-24 [facility] Comment on above: Order Comment: Speci men Type: BLOOD SPECIMEN Ordering Facility: [facility] Address: [place] [address] Performed By: #### 1 9123-9, [id number], 30771-8 #### [facility] CLIA [id number] [address] ECG COMPLETEon 01-29-2023 ECG COMPLETE Ventricular Rate : 7 8 BPM Atrial Rate : 78 BPM P-R Interval : 160 ms QRS Duration : 122 ms Q-T Interval : 374 ms QTC Calculation(Bazett) : 426 ms Calculated P [place] : 64 degrees Calculated R [place] : 82 degrees Calculated T [place] : 49 degrees Sinus rhythm IVCD, consider atypical RBBB ST elevation suggests acute pericarditis Abnormal ECG no stemi Confirmed by ERIK DAVIS MD ([id number]), technical editor SUZI BRUNO ([id number]) on 01/30/2023 10:18:17 AM NAME : GABRIELA VIDAL PID : [id number] : 1990 Gender : Male Race : ORD : [id number] Procedure Date : Jan 29 2023 12:34:12 Edit Date : Jan 30 2023 10:18:21 Diagnosis: Sinus rhythm IVCD, consider atypical RBBB ST elevation suggests acute pericarditis Abnormal ECG no stemi Confirmed by ERIK DAVIS MD ([id number]), technical editor SUZI BRUNO ([id number]) on 01/30/2023 10:18:17 AM Test Reason : Chest Pain Location : 18 : ED [id number] Overread By : ERIK DAVIS MD Edited By : SUZI BRUNO Referred By : , Acquired by : , [facility] ED NOTEon 07-03-2023 ED NOTE HNO ID: [id number] Author: Juliana Aguilera RN Service: Nursing Author [...] on departure. [facility] ED NOTE HNO ID: [id number] Author: Juliana Aguilera RN Service: Nursing Author [...] low position [facility] ED NOTE HNO ID: [id number] Author: Anabel Hernandez RN Service: ? Author Type: Registered Nurse Type: ED Notes Filed: 01/29/2023 12:23 PM Note Text: Bed: ED-13 Expected date: Expected time: Means of arrival: Comments: EMS [facility] ED PROV NOTEon 01-29-2023 ED PROV NOTE HNO ID: [id number] Author: Erik Davis MD Service: Emergency Medicine Author Type: Physician Type: ED Provider Notes Filed: 01/29/2023 3:34 PM Note Text: ED Provider Note Patient Name: Gabriela Vidal JrJohn : 1990 SERVICE DATE: 01/29/23 History Patient [...] nursing note reviewed. Exam conducted with a environmental program manager present. Constitutional: General: He is not in [...] intact. Motor: Motor function is intact. Coordination: Phgmvv-Wfqh-Supeox Test normal. Gait: Gait is intact. Psychiatric: [...] Final Result IMPRESSION: No acute radiographic abnormality. Substitute Nurse: PSCB Transcribe Date/Time: Jan 29 2023 1:19P [...] ST SE (more content not included)... Normal [facility] HIGH SENSITIVITY TROPONIN T (INITIAL)on 01-29-2023 HIGH SENSITIVITY SHEBA 7 ng/L Normal <12 [facility] Comment on above: Order Comment: Cristela ness Type: BLOOD SPECIMENOrdering Facility: [facility] Address: [address] [place] [address] Result Comment: When assessing risk for acute [...] day MACE. Performed By: #### 1 9123-9, [id number], 99634-4 ####[facility] [id number] [place] [address] [place] HIGH SENSITIVITY TROPONIN T (SECOND)on 01-29-2023 HIGH SENSITIVITY SHEBA <6 Normal <12 [facility] Comment on above: Order Comment: Cristela ness Type: BLOOD SPECIMEN Ordering Facility: [facility] Address: [address] [place] [address] Result Comment: When assessing risk for acute [...] 30 day MACE. Performed By: #### L [id number] #### [facility] CLIA [id number] [address] [place] [address] [place] Magnesium SerPl-mCncon 01-29 Magnesium [Mass/Vol] 1.9 mg/dL Normal 1.7-2.3 [facility] Comment on above: Order Comment: Cristela ness Type: BLOOD SPECIMENOrdering Facility: [facility] Address: [address] [place], [place] [address], [place] [address] Performed By: #### 1 9123-9, [id number], 97967-9 ####[facility] [id number] [place] [id number] [place] No Panel Informationon 01-29 IMPRESSION: Mild acromioclavicular degenerative changes. Substitute Nurse: YAIMA Transcribe Date/Time: Jan 29 2023 2:37P Dictated by : BROOK NELSON MD This examination was interpreted and the report reviewed and electronically signed by: BROOK NELSON MD on Jan 29 2023 2:38PM EST DIVISION OF RADIOLOGY Radiology Study observation (narrative) [facility] No Panel InformationOrdered By: Ccf Provider on 01-29-2023 [facility] XR CHEST 2V FRONTAL/LATon XR [...] tissues: Unremarkable. IMPRESSION: No acute radiographic abnormality. Substitute Nurse: PSCB Transcribe Date/Time: Jan 29 2023 1:19P Dictated by : DEVEN CHAPMAN MD This examination was interpreted and the report reviewed and electronically signed by: DEVEN CHAPMAN MD on Jan 29 2023 1:20PM EST [id number] Normal [facility] XR Shoulder - left 3 Viewson 01-29-2023 [...] >/=3V AP/ALESSANDRO AP/OTHR LT Laterality: RIGHT (accession [id number]), LEFT (accession [id number]) Number of different views (projections): 3 M: XB_1 COMPARISON: RESULT: Mild acromioclavicular degenerative changes bilaterally. Maintained glenohumeral joints bilaterally. Imaged lungs appear to be clear. No acute fracture or dislocation. There are no bony erosions. DIVISION OF RADIOLOGY Provider, [facility] - 01/29/2023 * * *Final Report* [...] >/=3V AP/ALESSANDRO AP/OTHR LT Laterality: RIGHT (accession [id number]), LEFT (accession [id number]) Number of different views (projections): 3 M: XB_1 COMPARISON: RESULT: Mild acromioclavicular degenerative changes bilaterally. Maintained glenohumeral joints bilaterally. Imaged lungs appear to be clear. No acute fracture or dislocation. There are no bony erosions. IMPRESSION IMPRESSION: Mild acromioclavicular degenerative changes. Substitute Nurse: YAIMA Transcribe Date/Time: Jan 29 2023 2:37P Dictated by : BROOK NELSON MD This examination was interpreted and the report reviewed and electronically signed by: BROOK NELSON MD on Jan 29 2023 2:38PM EST [facility] XR Shoulder - right 3 [...] >/=3V AP/ALESSANDRO AP/OTHR LT Laterality: RIGHT (accession [id number]), LEFT (accession [id number]) Number of different views (projections): 3 M: XB_1 COMPARISON: RESULT: Mild acromioclavicular degenerative changes bilaterally. Maintained glenohumeral joints bilaterally. Imaged lungs appear to be clear. No acute fracture or dislocation. There are no bony erosions. DIVISION OF RADIOLOGY Provider, [facility] - 01/29/2023 * * *Final Report* [...] >/=3V AP/ALESSANDRO AP/OTHR LT Laterality: RIGHT (accession [id number]), LEFT (accession [id number]) Number of different views (projections): 3 M: XB_1 COMPARISON: RESULT: Mild acromioclavicular degenerative changes bilaterally. Maintained glenohumeral joints bilaterally. Imaged lungs appear to be clear. No acute fracture or dislocation. There are no bony erosions. IMPRESSION IMPRESSION: Mild acromioclavicular degenerative changes. Substitute Nurse: YAIMA Transcribe Date/Time: Jan 29 2023 2:37P Dictated by : BROOK NELSON MD This examination was interpreted and the report reviewed and electronically signed by: BROOK NELSON MD on Jan 29 2023 2:38PM EST [facility] UA DIP, URINE (POC)on 2022 BILIRUBIN UA (POCT) Negative Negative [facility] CLARITY UA (POCT) [facility] COLOR [facility]A (POCT) Yellow [facility] GLUCOSE UA (POCT) Negative Negative mg/dL [facility] HEMOGLOBIN/BLOOD UA (POCT) Negative Negative [facility] KETONE UA (POCT) Negative Negative mg/dL [facility] LEUKOCYTES UA (POCT) Negative Negative [facility] NITR[facility] (POCT) Negative Negative [facility] PH UA (POCT) 5.5 4.5 - 8.0 [facility] Protein Ql (U) Negative Negative mg/dL [facility] SPECIFIC GRAVITY UA (POCT) >=1.030 1.005 - 1.030 [facility] UROBILINOGEN UA (POCT) 0.2 E.U./dL Skyla l E.U./dL [facility] Provider Note - ED v3on 05- Provider Note - ED v3 Provider Note: [...] by speech recognition technology. Minor errors in two way radio technician may be present. HISTORY OF PRESENTING ILLNESS [...] Review Statu (more content not included)... Normal [facility] Triage - EDon 2022 Triage - ED Chart Review: ARRIVAL INFORMATION Mode of Arrival: ambulance Agency Name: [place] CHIEF COMPLAINT GABRIELA VIDAL is a Male [...] BMI (kg/m2): 25.839 Calculated BSA (m2) 2.05 [place] Coma Scale: Best Eye Response: (E4) spontaneous Best Motor Response: (M6) obeys commands Best Verbal Response: (V5) oriented [place] Score: 15 Cough lasting greater than 3 [...] History Last Updated: 11-Dec-2022 21:00 by Dina Wood) [facility] ED NOTEon 01-03-2022 ED NOTE HNO ID: [id number] Author: Darcie Gary RN Service: Nursing Author [...] Pt ambulated off ED in no distress. [facility] ED NOTE HNO ID: [id number] Author: Nuvia George RN Service: ? Author Type: Registered Nurse Type: ED Notes Filed: 01/03/2022 11:51 AM Note Text: Pt presents to the ED with CC of a known dental infection for the past 2 years that has turned into an abscess, pt went to [place] yesterday where they attempted to drain the abscess and started him on oral antibiotics, pt now reports swelling is worse and to the point of his eye swelling shut [facility] ED PROV NOTEon 01-03-2022 ED PROV NOTE HNO ID: [id number] Author: Aysha Poole MD Service: ? Author [...] swelling 2 days ago. He went to [place] emergency department was placed on amoxicillin. He [...] (more content not included)... Normal [facility] XR SHOULDER 2V AP/TRUE AP RT [...] otherwise maintained. No acute fracture or dislocation. Substitute Nurse: YAIMA Transcribe Date/Time: Sep 09 2020 9:58A Dictated by : XAVI OLIVER MD This examination was interpreted and the report reviewed and electronically signed by: XAIV OLIVER MD on Sep 09 2020 10:09AM EST Normal [facility] CT CHEST WO IVCONon 08-02-[address] CHEST WO IVCON Final Report DATE OF EXAM: Aug 02 2020 5:04PM [facility] 0541 - CT CHEST WO IVCON / [...] abnormality identified in the imaged upper abdomen. Bunk House Worker (topogram) images: No additional findings. IMPRESSION: Interval resolution of right lower lobe consolidation/pneumonia . No acute findings in the chest. Substitute Nurse: YAIMA Transcribe Date/Time: Aug 02 2020 6:06P Dictated by : LACI MENDOZA MD This examination was interpreted and the report reviewed and electronically signed by: LACI MENDOZA MD on Aug 02 2020 6:17PM EST Normal [facility] XR CHEST 2V FRONTAL/LATon XR CHEST 2V [...] to ensure resolution and exclude a neoplasm. Substitute Nurse: [facility] Transcribe Date/Time: May 17 2020 5:34P Dictated by : JUAN AYERS MD This examination was interpreted and the report reviewed and electronically signed by: JUAN AYERS MD on May 17 2020 5:35PM EST Normal [facility] T. Vaginalis Amplificationon 02-10-2020 T. Vaginalis Amplification SEE BELOW Normal [facility] Comment on above: Result Comment: Tric h vag Amp Source Urine Corrected on 02/08 AT 1722: Previously reported as URINE T vag Amplification SEE BELOW Negative for Trichomonas vaginalis by amplification This test was developed and its performance characteristics determined by [facility]'s [facility] [place] ( PL[place]). It has not been cleared or approved by the FDA. [facility] is regulated under CLIA as qualified to perform high complexity testing. This test is used for clinical purposes. It should not be regarded as investigational or for research. Performing Laboratory: [facility] [address] [place] [address] Performed By: #### T RVAX #### [address] [address] GC/Chlam Urine Ampon 020 CT Amplification, Ur CT neg Normal [facility] Comment on above: Result Comment: Nega tive for Chlamydia trachomatis by amplification. Performed By: #### G CTUP #### [facility] [address] [place], [place] [address] GC Amplification, Ur GC neg Normal [facility] Comment on above: Result Comment: Nega tive for Neisseria gonorrhoeae by amplification. Performed By: #### G CTUP #### [facility] [address] [place], [place] [address] GC/Chlam Urine Ampon 020 GC/Chlam Urine Amp Source Urine Normal [facility] Comment on above: Performed By: #### G CTUP #### [facility] [address] [place], [place] [address] XR LUMBAR 3V AP/LAT/L5-S1on 02-02-2020 XR LUMBAR [...] are seen. IMPRESSION: No acute traumatic abnormality Substitute Nurse: PSCB Transcribe Date/Time: Feb 02 2020 1:49P Dictated by : LINDA RAMÍREZ MD This examination was interpreted and the report reviewed and electronically signed by: LINDA RAMÍREZ MD on Feb 02 2020 1:54PM EST Normal [facility] Chlamydia and GC PCR Panelon 02-09-2018 Chlamydia and GC PCR Panel Chlamydia trachomatis PCR --> Status: FNOT DetectedChlamydia trachomatis Nucleic Acid NOT Detected byDNA Amplification using the [employer] System.Culture is the only recommended test in [...] as suspected child abuse or molestation. Normal [facility] Comment on above: Order Comment: Speci men Source Comment:Urine voided Performed By: #### C TNGP ####[employer] [address] [place] [address] CR Abdomen Series w/ Chest 1 Viewon 02-08-2018 CR Abdomen Series w/ Chest 1 View Patient Name: GABRIELA VIDAL Jr Diagnostic Radiology Exam Date/Time 02/08/2018 11:55:40 EDT Exam CR Abdomen Series w/ Chest 1 View Ordering Physician DO GONCALVES KIMBERLY D. Accession Number [id number] CPT4 Codes 10030 () Reason For Exam abdominal pain and [...] Transcribed Date and Time: 02/08/2018 1:03 Normal [facility] Comp Metabolic Panelon 02-08 Calcium 9.2 mg/dL Normal 8.4-10.4 [facility] Comment on above: Performed By: #### H OMIDF CMP3 ####[place] [address] [place] [address] Alanine aminotransferase (ALT) 19 U/L Normal 13-69 [facility] Comment on above: Performed By: #### H EMDF, CMP3 ####[place] [address] [place] [address] Alkaline phosphatase (ALP) 45 U/L Normal 38-126 [facility] Comment on above: Performed By: #### H EMDF CMP3 ####[place] [address] [place] [address] Anion gap 9 Normal [facility] Comment on above: Performed By: #### H EMDF, CMP3 ####[place] [address] [place] [address] Aspartate aminotransferase (AST) 22 U/L Normal 15-46 [facility] Comment on above: Performed By: #### H EMDHafsa, CMP3 ####[place] [address] [place] [address] Bilirubin (total) 0.5 mg/dL Normal 0.2-1.3 [facility] Comment on above: Performed By: #### H EMDF CMP3 ####[place] [address] [place] [address] CO2 28 mmol/L Normal 22-30 [facility] Comment on above: Performed By: #### H EMDF CMP3 ####[place] [address] [place] [address] Creatinine 1.19 mg/dL Normal 0.52-1.25 [facility] Comment on above: Performed By: #### H EMDF, CMP3 ####[place] [address] [place] [address] eGFR (black) mL/min/{1.73_m2} Normal >60 [facility] Comment on above: Performed By: #### H YOLANDA CMP3 ####[place] [address] [place] [address] eGFR (non-black) mL/min/{1.73_m2} Normal >60 [facility] Comment on above: Result Comment: Sour ce- MDRD equation with creatinine calibration to IDMS(NKDEP) eGFR not recommended for drug dose adjustment Performed By: #### H YOLANDA CMP3 ####[place] [address] [place] [address] Glucose mass conc 98 mg/dL Normal 70-100 [facility] Comment on above: Performed By: #### H YOLANDA CMP3 ####[address] [place] [address] Protein 6.9 g/dL Normal 6.3-8.2 [facility] Comment on above: Performed By: #### H YOLANDA CMP3 ####[address] [place] [address] Urea nitrogen 10 mg/dL Normal 7-20 [facility] Comment on above: Performed By: #### H YOLANDA CMP3 ####[address] [place] [address] Potassium molar conc 4.2 mmol/L Normal 3.5-5.1 [facility] Comment on above: Performed By: #### H YOLANDA CMP3 ####[address] [place] [address] Albumin 4.2 g/dL Normal 3.5-5.0 [facility] Comment on above: Performed By: #### H YOLANDA CMP3 ####[address] [place] [address] Chloride 106 mmol/L Normal 98-107 [facility] Comment on above: Performed By: #### H YOLANDA CMP3 ####[place] [address] [address] Sodium 144 mmol/L Normal 137-145 [facility] Comment on above: Performed By: #### H YOLANDA CMP3 ####[place] [address] [facility] [place] [address] Hemogram w/ Autodiffon 07-13 -2018 Abs Baso Cnt 0.0 10*3/uL Normal 0.0-0.2 [facility] Comment on above: Performed By: #### H YOLANDA CMP3 ####[place] [address] [place] [address] Abs Neutrophile Cnt 4.4 10*3/uL Normal 1.8-7.0 [facility] Comment on above: Performed By: #### H YOLANDA CMP3 ####[address] [address] Basophils/100 WBC Auto (Bld) 0.5 % Normal 0.0-2.0 [facility] Comment on above: Performed By: #### H YOLANDA CMP3 ####[address] [address] Eosinophils 0.2 10*3/uL Normal 0.0-0.5 [facility] Comment on above: Performed By: #### H YOLANDA CMP3 ####[address] [address] Eosinophils/100 leukocytes 2.5 % Normal 1.0-6.0 [facility] Comment on above: Performed By: #### H YOLANDA CMP3 ####[address] [address] Erythrocyte distribution width Auto Ratio (RBC) 13.0 % Normal 11.5-14.5 [facility] Comment on above: Performed By: #### H YOLANDA CMP3 ####[address] [address] Erythrocytes (RBC) 5.31 10*6/uL Normal 4.40-5.90 [facility] Comment on above: Performed By: #### H YOLANDA CMP3 ####[address] [address] Granulocytes/100 WBC (Bld) 54.6 % Normal 40.0-80.0 [facility] Comment on above: Performed By: #### H YOLANDA CMP3 ####[address] [address] Hematocrit (HCT) 48.8 % Normal 40.0-52.0 [facility] Comment on above: Performed By: #### H YOLANDA CMP3 ####[place] [address] [facility] [address] Hemoglobin mass conc (Bld) 16.7 g/dL Normal 13.0-18.0 [facility] Comment on above: Performed By: #### H YOLANDA CMP3 ####[place] [address] [facility] [place] [address] Lymphocytes 2.6 10*3/uL Normal 1.0-4.3 [facility] Comment on above: Performed By: #### H YOLANDA CMP3 ####[place] [address] [facility] [place] [address] Lymphocytes/100 leukocytes 32.5 % Normal 20.0-40.0 [facility] Comment on above: Performed By: #### H YOLANDA CMP3 ####[address] [place] [address] MCH 31.4 pg Normal 26.0-34.0 [facility] Comment on above: Performed By: #### H YOLANDA CMP3 ####[address] [place] [address] MCHC mass conc (RBC) 34.2 % Normal 32.0-36.0 [facility] Comment on above: Performed By: #### H YOLANDA CMP3 ####[address] [place] [address] MCV 91.8 fL Normal 80.0-98.0 [facility] Comment on above: Performed By: #### H YOLANDA CMP3 ####[place] [address] [facility] [address] Monocytes 0.8 10*3/uL Normal 0.0-0.8 [facility] Comment on above: Performed By: #### H YOLANDA CMP3 ####[place] [address] [place] [address] Monocytes/100 leukocytes 9.9 % Normal 2.0-10.0 [facility] Comment on above: Performed By: #### H YOLANDA CMP3 ####[address] [place] [address] Platelet mean volume (PMV) 10.2 fL Normal 7.4-10.4 [facility] Comment on above: Performed By: #### H EMDF, CMP3 ####[facility] [place] [address] Platelets 195 10*3/uL Normal 140-440 [facility] Comment on above: Performed By: #### H EMDF, CMP3 ####[facility] [place] [address] WBC (Leukocytes) 8.0 10*3/uL Normal 3.6-10.7 [facility] Comment on above: Performed By: #### H EMDF, CMP3 ####[place] [address] [place] [address] Urinalysis,Macroon 8 Appearance Clear Normal Clear [facility] Comment on above: Performed By: #### U AMAC, UAMIC ####[place] [address] [place] [address] Bilirubin,Ur 1 + Normal Negative [facility] Comment on above: Performed By: #### U AMAC, UAMIC ####[place] [address] [place] [address] Color Yellow Normal Lt. Yellow [facility] Comment on above: Performed By: #### U AMAC, UAMIC ####[place] [address] [place] [address] Ketone,Urine Negative Normal Negative [facility] Comment on above: Performed By: #### U AMAC, UAMIC ####[facility] [place] [address] Leukocytes Negative Normal Negative [facility] Comment on above: Performed By: #### U AMAC, UAMIC ####[place] [address] [place] [address] Nitrites Negative Normal Negative [facility] Comment on above: Performed By: #### U AMAC, UAMIC ####[place] [address] [place] [address] Occult Blood,Ur Negative Normal Negative [facility] Comment on above: Performed By: #### U AMAC, UAMIC ####[place] [address] [place] [address] Specific [place],Urine 1.020 Normal 1.005-1.030 [facility] Comment on above: Performed By: #### U AMAC, UAMIC ####[facility] [facility] [address] Total Protein,Urine Negative Normal Negative [facility] Comment on above: Performed By: #### U AMAC, UAMIC ####[place] [address] [place] [address] Urine, glucose presence NEG (Normal) Normal Negative [facility] Comment on above: Performed By: #### U AMAC, UAMIC ####[address] [place] [address] [place] [address] Urine, pH 6.5 Normal 5.0-8.0 [facility] Comment on above: Performed By: #### U AMAC, UAMIC ####[place] [address] [facility] [place] [address] Urobilinogen Normal (0.2) Normal 0-1 [facility] Comment on above: Performed By: #### U AMAC, UAMIC ####[place] [address] [facility] [place] [address] Urinalysis,Microscopicon Amorphous Urates Moderate (6-50) Normal Negative [facility] Comment on above: Performed By: #### U AMAC, UAMIC ####[place] [address] [facility] [place] [address] Bacteria Few (1-5) Normal Negative [facility] Comment on above: Performed By: #### U AMAC, UAMIC ####[place] [address] [facility] [place] [address] Ca Oxylate Crystals Few (1-5) Normal Negative [facility] Comment on above: Performed By: #### U AMAC, UAMIC ####[address] [place] [place] [address] Epithelial Cells Negative Normal 3-5 [facility] Comment on above: Performed By: #### U AMAC, UAMIC ####[place] [address] [place] [address] Urine, erythrocytes in sediment by area Negative Normal 0-2 [facility] Comment on above: Performed By: #### U AMAC, UAMIC ####[address] [place] [address] Urine, leukocytes in sedmiment 0 - 2 Normal 0-5 [facility] Comment on above: Performed By: #### U AMAC, UAMIC ####[facility] [place] [address] Volume,Urine 12 ml Normal [facility] Comment on above: Performed By: #### U AMAC, UAMIC ####[facility] [place] [address] Vital Signs Date Time Vital Sign Value Performing Clinician Facility 02-24-2025 11:140400 Body height 180.3 cm John Blas MD Work Phone: [facility] 02-24-2025 11:14-0400 Body mass index (BMI) [Ratio] 24.35 kg/m2 John Blas MD Work Phone: [facility] 02-24-2025 11:14-0400 Body weight 79.2 kg John Blas MD Work Phone: [facility] 02-24-2025 11:14-0400 Diastolic blood pressure 80 mm[Hg] John Blas MD Work Phone: [facility] 02-24-2025 11:14-0400 Heart rate 109 /min John Blas MD Work Phone: [facility] 02-24-2025 11:14-0400 SaO2% (BldA) [Mass fraction] 96 % John Blas MD Work Phone: [facility] 02-24-2025 11:14-0400 Systolic blood pressure 122 mm[Hg] John Blas MD Work Phone: [facility] 01-26-2025 12:50-0400 Body temperature 98.4 [degF] Shania Vieira MANAGER GOLF-C Work Phone: [facility] 01-26-2025 12:50-0400 Diastolic blood pressure 96 mm[Hg] Shania Vieira MANAGER GOLF-C Work Phone: [facility] 01-26-2025 12:50-0400 Heart rate 77 /min Shania Queden MANAGER GOLF-C Work Phone: [facility] 01-26-2025 12:50-0400 Respiratory rate 18 /min Shania Queden MANAGER GOLF-C Work Phone: [facility] 01-26-2025 12:50-0400 SaO2% (BldA) [Mass fraction] 98 % Shania Queden MANAGER GOLF-C Work Phone: [facility] 01-26-2025 12:50-0400 Systolic blood pressure 149 mm[Hg] Shania Queden MANAGER GOLF-C Work Phone: [facility] 01-26-2025 12:38-0400 Body height 177.8 cm Shania Queden MANAGER GOLF-C Work Phone: [facility] 01-26-2025 12:38-0400 Body weight 82.9 kg Shania Queden MANAGER GOLF-C Work Phone: [facility] 01-21-2025 22:58-0400 Body mass index (BMI) [Ratio] 26.2 kg/m2 Shania Queden MANAGER GOLF-C Work Phone: [facility] 01-21-2025 21:53-0400 Body temperature 100 [degF] Shania Queden MANAGER GOLF-C Work Phone: [facility] 01-21-2025 21:53-0400 Diastolic blood pressure 83 mm[Hg] Shania Queden MANAGER GOLF-C Work Phone: [facility] 01-21-2025 21:53-0400 Heart rate 118 /min Shania Queden MANAGER GOLF-C Work Phone: [facility] 01-21-2025 21:53-0400 Respiratory rate 18 /min Shania Queden MANAGER GOLF-C Work Phone: [facility] 01-21-2025 21:53-0400 SaO2% (BldA) [Mass fraction] 100 % Shania Queden MANAGER GOLF-C Work Phone: [facility] 01-21-2025 21:53-0400 Systolic blood pressure 130 mm[Hg] Shania Queden MANAGER GOLF-C Work Phone: [facility] 01-21-2025 16:05-0400 Body height 175.26 cm Shania Queden MANAGER GOLF-C Work Phone: [facility] 01-21-2025 16:05-0400 Body mass index (BMI) [Ratio] 27 kg/m2 Shania Queden MANAGER GOLF-C Work Phone: [facility] 01-21-2025 16:05-0400 Body weight 83 kg Shania Queden MANAGER GOLF-C Work Phone: [facility] 01-07-2025 09:57-0400 Body temperature 97.3 [degF] Shania Queden MANAGER GOLF-C Work Phone: [facility] 01-07-2025 09:57-0400 Diastolic blood pressure 99 mm[Hg] Shania Queden MANAGER GOLF-C Work Phone: [facility] 01-07-2025 09:57-0400 Heart rate 90 /min Shania Queden MANAGER GOLF-C Work Phone: [facility] 01-07-2025 09:57-0400 Respiratory rate 16 /min Shania Queden MANAGER GOLF-C Work Phone: [facility] 01-07-2025 09:57-0400 SaO2% (BldA) [Mass fraction] 99 % Shania Queden MANAGER GOLF-C Work Phone: [facility] 01-07-2025 09:57-0400 Systolic blood pressure 101 mm[Hg] Shania Queden MANAGER GOLF-C Work Phone: [facility] 01-07-2025 08:42-0400 Body height 175.26 cm Shania Queden MANAGER GOLF-C Work Phone: [facility] 01-07-2025 08:42-0400 Body mass index (BMI) [Ratio] 27.1 kg/m2 Shania Queden MANAGER GOLF-C Work Phone: [facility] 01-07-2025 08:42-0400 Body weight 83.41 kg Shania Queden MANAGER GOLF-C Work Phone: [facility] 01-15-2024 14:37-0400 Body height 177.8 cm Shania Queden FITNESS DIRECTOR.BUSINESS DEVELOPMENT ENGINEER Work Phone: [facility] 01-15-2024 14:37-0400 Body mass index (BMI) [Ratio] 24.54 kg/m2 Shania Queden FITNESS DIRECTOR.BUSINESS DEVELOPMENT ENGINEER Work Phone: [facility] 01-15-2024 14:37-0400 Body temperature 97.9 [degF] Shania Queden FITNESS DIRECTOR.BUSINESS DEVELOPMENT ENGINEER Work Phone: [facility] 01-15-2024 14:37-0400 Body weight 77.56 kg Shania Queden FITNESS DIRECTOR.BUSINESS DEVELOPMENT ENGINEER Work Phone: [facility] 01-15-2024 14:37-0400 Diastolic blood pressure 62 mm[Hg] Shania Queden FITNESS DIRECTOR.BUSINESS DEVELOPMENT ENGINEER Work Phone: [facility] 01-15-2024 14:37-0400 Heart rate 98 /min Shania Queden FITNESS DIRECTOR.BUSINESS DEVELOPMENT ENGINEER Work Phone: [facility] 01-15-2024 14:37-0400 Respiratory rate 18 /min Shania Queden FITNESS DIRECTOR.BUSINESS DEVELOPMENT ENGINEER Work Phone: [facility] 01-15-2024 14:37-0400 SaO2% (BldA) [Mass fraction] 99 % Shania Queden FITNESS DIRECTOR.BUSINESS DEVELOPMENT ENGINEER Work Phone: [facility] 01-15-2024 14:37-0400 Systolic blood pressure 122 mm[Hg] Shania Queden FITNESS DIRECTOR.BUSINESS DEVELOPMENT ENGINEER Work Phone: [facility] 09-29-2023 06:49-0500 Body temperature 97.8 [degF] [facility] 09-29-2023 06:49-0500 Diastolic blood pressure 72 mm[Hg] [facility] 09-29-2023 06:49-0500 Heart rate 71 /min [facility] 09-29-2023 06:49-0500 Respiratory rate 16 /min [facility] 09-29-2023 06:49-0500 SaO2% (BldA) [Mass fraction] 98 % [facility] 09-29-2023 06:49-0500 Systolic blood pressure 122 mm[Hg] [facility] 09-28-2023 17:12-0500 Body height 177.8 cm [facility] 09-28-2023 17:12-0500 Body mass index (BMI) [Ratio] 26.5 kg/m2 [facility] 09-28-2023 17:12-0500 Body weight 83.91 kg [facility] 04-09-2023 10:29-0400 Body height 177.8 cm Gilda Zavala APRN.CNP Work Phone: [facility] 04-09-2023 10:29-0400 Body temperature 97.81 [degF] Gilda Zavala APRN.BUSINESS DEVELOPMENT ENGINEER Work Phone: [facility] 04-09-2023 10:29-0400 Body weight 82.1 kg Gilda Zavala APRN.BUSINESS DEVELOPMENT ENGINEER Work Phone: [facility] 04-09-2023 10:29-0400 Diastolic blood pressure 76 mm[Hg] Gilda Zavala APRN.BUSINESS DEVELOPMENT ENGINEER Work Phone: [facility] 04-09-2023 10:29-0400 Heart rate 92 /min Gilda Zavala APRN.BUSINESS DEVELOPMENT ENGINEER Work Phone: [facility] 04-09-2023 10:29-0400 SaO2% (BldA) [Mass fraction] 93 % Gilda Zavala APRN.BUSINESS DEVELOPMENT ENGINEER Work Phone: [facility] 04-09-2023 10:29-0400 Systolic blood pressure 120 mm[Hg] Gilda Trill FITNESS DIRECTOR.BUSINESS DEVELOPMENT ENGINEER Work Phone: [facility] 12-29-2022 16:55-0400 Body height 177.8 cm Shania Vieira FITNESS DIRECTOR.BUSINESS DEVELOPMENT ENGINEER Work Phone: [facility] 12-29-2022 16:55-0400 Body temperature 97.9 [degF] Shania Byrneden FITNESS DIRECTOR.BUSINESS DEVELOPMENT ENGINEER Work Phone: [facility] 12-29-2022 16:55-0400 Body weight 79.83 kg Shania Byrneden FITNESS DIRECTOR.BUSINESS DEVELOPMENT ENGINEER Work Phone: [facility] 12-29-2022 16:55-0400 Diastolic blood pressure 74 mm[Hg] Shania Byrneden FITNESS DIRECTOR.BUSINESS DEVELOPMENT ENGINEER Work Phone: [facility] 12-29-2022 16:55-0400 Heart rate 91 /min Shania Chavezden FITNESS DIRECTOR.BUSINESS DEVELOPMENT ENGINEER Work Phone: [facility] 12-29-2022 16:55-0400 SaO2% (BldA) [Mass fraction] 97 % Shania Byrneden FITNESS DIRECTOR.BUSINESS DEVELOPMENT ENGINEER Work Phone: [facility] 12-29-2022 16:55-0400 Systolic blood pressure 120 mm[Hg] Shania Byrneden FITNESS DIRECTOR.BUSINESS DEVELOPMENT ENGINEER Work Phone: [facility] 12-12-2022 00:10-0400 Diastolic blood pressure 77 mm[Hg] No Pcp Required [facility] Other Phone (unformatted): [phone] 12-12-2022 00:10-0400 Heart rate 96 /min No Pcp Required [facility] Other Phone (unformatted): [phone] 12-12-2022 00:10-0400 Respiratory rate 18 /min No Pcp Required [facility] Other Phone (unformatted): [phone] 12-12-2022 00:10-0400 SaO2% (BldA) [Mass fraction] 100 % No Pcp Required [facility] Other Phone (unformatted): [phone] 12-12-2022 00:10-0400 Systolic blood pressure 113 mm[Hg] No Pcp Required [facility] Other Phone (unformatted): [phone] 2022 22:57-0400 Body height 180.3 cm No Pcp Required [facility] Other Phone (unformatted): [phone] 2022 22:57-0400 Body temperature 96.8 [degF] No Pcp Required [facility] Other Phone (unformatted): [phone] 2022 22:57-0400 Body weight 84 kg No Pcp Required [facility] Other Phone (unformatted): [phone] 05-18-2019 15:46-0400 BMI (Body Mass Index) 26.54 kg/m2 [place], [place] 05-18-2019 15:46-0400 Body Temperature 98.6 [degF] [place], [place] 05-18-2019 15:46-0400 Body weight 83.92 kg [place], [place] 05-18-2019 15:46-0400 BP Diastolic 79 mm[Hg] [place] 05-18-2019 15:46-0400 BP Systolic 118 mm[Hg] [place] 05-18-2019 15:46-0400 Pulse (Heart Rate) 94 /min [place], [place] 05-18-2019 15:46-0400 Pulse Oximetry 99 % [place] 05-18-2019 15:46-0400 Respiratory Rate 20 /min [place], [place] Encounters Encounter Date Encounter Type Care Provider Facility Start: 02-24-2025 End: 02-24-2025 Patient encounter procedure John Blas MD Work Phone: General Surgery Comment on above: Diverticulitis of la rge intestine with perforation without bleeding Start: 02-24-2025 End: 02-24-2025 ambulatory JOHN BLAS Facility:[facility] Start: 02-18-2025 End: 02-19-2025 Telephone encounter John Blas MD Work Phone: General Surgery Start: 02-06-2025 End: 02-10-2025 Telephone encounter Shania A Queden FITNESS DIRECTOR.BUSINESS DEVELOPMENT ENGINEER Work Phone: [facility] Comment on above: Internal Referrals/r esources (GI vs General Surgery) Start: 01-28-2025 End: 01-29-2025 Patient Outreach Shaniaklaus Vieira FITNESS DIRECTOR.BUSINESS DEVELOPMENT ENGINEER Work Phone: [facility] Comment on above: Transition Of Care ( Madan 01/21-01/26/2025) Start: 01-26-2025 Non-patient / Non-visit Anabel marinelli PA-C -[facility] Start: 01-25-2025 Non-patient / Non-visit Dr. Zechariah Bruno MD [facility] Start: 01-24-2025 Non-patient / Non-visit Dr. Zechariah Bruno MD [facility] Start: 01-23-2025 Non-patient / Non-visit Dr. Zechariah Bruno MD [facility] Start: 01-22-2025 Non-patient / Non-visit Dr. Zechariah Bruno MD [facility] Start: 01-21-2025 ambulatory Shania Isha Facility :[facility] Start: 01-21-2025 End: 01-26-2025 Evaluation and management of inpatient Dr. Zechariah Bruno MD -Medical Surgical 3 Work Phone: Start: 01-12-2025 End: 01-12-2025 ambulatory Shania A Isha FITNESS DIRECTOR.BUSINESS DEVELOPMENT ENGINEER Work Phone: [facility] Start: 01-12-2025 End: 01-12-2025 Follow-up encounter Shania Byrnejoshua FITNESS DIRECTOR.BUSINESS DEVELOPMENT ENGINEER Work Phone: [facility] Comment on above: ED Follow-up ([place] [facility] 01/07/2025) Start: 01-07-2025 End: 01-07-2025 Emergency department patient visit Shania Quejoshua MANAGER GOLF-C Work Phone: -Emergency Department Work Phone: Start: 04-21-2024 End: 04-23-2024 Patient Outreach Estephania Lemos LPN [facility] Comment on above: Transition Of Care ( Pt was admitted to [facility] on 04/18/2024 for ISABELLA, COVID-19. Pt was d/c on 04/19/2024) Start: 04-18-2024 ambulatory Fili Valencia Fac ility:[facility] Start: 04-18-2024 End: 04-19-2024 Evaluation and management of inpatient Fili Valencia Facility:[facility] Start: 04-17-2024 End: 04-17-2024 Emergency department patient visit Ed Physician Provider Facility:[facility] Start: 01-28-2024 Telephone encounter Shania Vieira FITNESS DIRECTOR.BUSINESS DEVELOPMENT ENGINEER Work Phone: [facility] Comment on above: Consult Start: 01-15-2024 End: 01-15-2024 Patient encounter procedure Shania Vieira FITNESS DIRECTOR.BUSINESS DEVELOPMENT ENGINEER Work Phone: [facility] Comment on above: Schizoaffective diso rder, unspecified type (HCC) (Primary Dx); Adult ADHD; Auditory hallucinations; Acute psychosis (HCC); Marijuana use; Financial difficulties; Acute pain of left shoulder; Living in temporary quarters Start: 12-21-2023 Telephone encounter Shania Vieira FITNESS DIRECTOR.BUSINESS DEVELOPMENT ENGINEER Work Phone: [facility] Comment on above: Appointment Start: 12-17-2023 ambulatory Estephania Coxi C [facility] Start: 10-02-2023 ambulatory Humera [place] Co [facility] Comment on above: ed outreach (Ed outr 09/28/2023/[place] ) Start: 09-28-2023 End: 09-29-2023 Emergency department patient visit [facility]gency Department Work Phone: Start: 07-03-2023 ambulatory Shania Haq en FITNESS DIRECTOR.BUSINESS DEVELOPMENT ENGINEER Work Phone: [facility] Comment on above: ED Outreach ([place] [facility] 07/01/23) Start: 05-17-2023 ambulatory Shanae Av[place] [facility] Start: 04-11-2023 ambulatory Humera Klicman [facility] Comment on above: ED outreach (ED outr each /[place] /04/07/2023 ) Start: 04-09-2023 End: 04-09-2023 Patient encounter procedure Gilda Zavala FITNESS DIRECTOR.BUSINESS DEVELOPMENT ENGINEER Work Phone: [facility] Comment on above: Cellulitis of right lower leg (Primary Dx); Itching Start: 01-29-2023 End: 01-29-2023 Emergency department patient visit SHANIA VIEIRA Facility:[facility] Start: 01-29-2023 End: 01-29-2023 Subsequent hospital visit by physician [facility] Comment on above: Pain [R52] Start: 01-18-2023 Orders Only Humera Hernandez bobby FITNESS DIRECTOR.BUSINESS DEVELOPMENT ENGINEER Work Phone: [facility] [place] Comment on above: Pain (Primary Dx) Start: 01-01-2023 Telephone encounter Shania Vieira FITNESS DIRECTOR.BUSINESS DEVELOPMENT ENGINEER Work Phone: [facility] Comment on above: Results Start: 12-29-2022 End: 12-29-2022 Patient encounter procedure Shania Vieira FITNESS DIRECTOR.BUSINESS DEVELOPMENT ENGINEER Work Phone: [facility] Comment on above: Dysuria (Primary Dx) ; Exposure to STD Start: 2022 End: 12-12-2022 [facility] Other Phone (unformatted): [phone] Start: 08-24-2022 ambulatory Shania Macie Qued en FITNESS DIRECTOR.BUSINESS DEVELOPMENT ENGINEER Work Phone: [facility] Start: 08-24-2022 Follow-up encounter Shania Byrneden FITNESS DIRECTOR.BUSINESS DEVELOPMENT ENGINEER Work Phone: [facility] Comment on above: ED Follow Up ([place] [facility] D discharge 08/21/2022 ED outreach ) Start: 01-06-2022 ambulatory Shania A Qued en FITNESS DIRECTOR.BUSINESS DEVELOPMENT ENGINEER Work Phone: [facility] Start: 05-18-2019 End: 05-18-2019 Emergency department patient visit [facility] Comment on above: Encounter for wound re-check (Primary Dx) Start: 02-08-2018 Emergency department patient visit Torrie Goncalves [facility] Procedures Date Procedure Procedure Detail Performing Clinician Start: 01-22-2025 Estimated creatinine clearance Shania Quejoshua MANAGER GOLF-C Work Phone: Start: 01-21-2025 Computed tomography of abdomen and pelvis with intravenous contrast Shania Isha MANAGER GOLF-C Work Phone: Start: 01-21-2025 Estimated creatinine clearance Shania Quejoshua MANAGER GOLF-C Work Phone: Start: 01-21-2025 Urnls dip stick/tabl et reagent auto microscopy Shania Quejoshua MANAGER GOLF-C Work Phone: Start: 09-28-2023 Coronavirus COVID-19 PCR Start: 01-29-2023 Radex shoulder compl ete minimum 2 views Humera Harper FITNESS DIRECTOR.BUSINESS DEVELOPMENT ENGINEER Work Phone: Start: 12-29-2022 Urnls dip stick/tabl et rgnt auto w/o microscopy Shania Vieira FITNESS DIRECTOR.BUSINESS DEVELOPMENT ENGINEER Work Phone: Start: 08-24-2020 Adult depression scr eening assessment Shania Vieira FITNESS DIRECTOR.BUSINESS DEVELOPMENT ENGINEER Work Phone: Plan of Treatment Date Care Activity Detail Author Start: 07-01-2033 Urine microalbumin profile DTaP,Tdap,Td Vaccine (8 - Td or Tdap) [facility] Start: 03-30-2025 Influenza vaccination [facility] Start: 02-23-2025 End: 02-23-2025 Patient encounter procedure 02/23/2025 2:30 PM EDT Office Visit General Surgery [address] [place] [address] John Blas MD [address] [place] [address] CONSULT: Diverticulitis of large intestine with perforation without bleeding. [facility] records uploaded. [facility] General Surgery Comment on above: CONSULT: Diverticuli tis of large intestine with perforation without bleeding. [facility] records uploaded. [facility] Start: 01-26-2025 Patient discharge [facility] Start: 01-25-2025 [facility] Start: 01-24-2025 [facility] Start: 01-22-2025 Provision of activit y privileges [facility] Start: 01-22-2025 Application of intermittent pneumatic compression device [facility] Start: 01-21-2025 End: 01-22-2025 [facility] Start: 01-21-2025 Following clinical pathway protocol [facility] Start: 01-21-2025 Admission procedure [facility] Start: 01-21-2025 Ambulation without limitation [facility] [facility] [place] Start: 01-21-2025 Assessment of risk o f venous thromboembolism [facility] [place] Start: 01-21-2025 Insertion of cathete r into peripheral vein [facility] [place] Start: 01-21-2025 Measuring intake and output [facility] [place] Start: 01-21-2025 Providing care accor ding to standard [facility] [place] Start: 01-21-2025 Hospital admission, emergency, from emergency room, medical nature [facility] [place] Start: 01-21-2025 Verification routine [facility] Start: 01-21-2025 Admission procedure [facility] Start: 01-21-[address] [facility] Start: 03-30-2024 Covid-19 Vaccine ( season) Covid-19 Vaccine ( season) [facility] Start: 03-30-2024 Covid-19 Vaccine ( season) Covid-19 Vaccine ( season) [facility] Start: 03-30-2024 Influenza vaccination [facility] Start: 02-20-2024 End: 02-20-2024 Patient encounter procedure 02/20/2024 2:00 PM EDT Office Visit Orthopaedics [address] [address] Gisella De Santiago DO [address] [facility] [place] [address] shoulder pain, bycicle incident 01/02/24 [facility] Comment on above: shoulder pain, bycic le incident 01/02/24 [facility] Start: 01-15-2024 End: 01-15-2024 Patient encounter procedure 01/15/2024 2:20 PM EDT Office Visit [facility] [address] [place] [address] Shania Vieira, FITNESS DIRECTOR.BUSINESS DEVELOPMENT ENGINEER [address] [place] [address] est casre [facility] Comment on above: est casre Start: 12-30-2023 COVID-19 VACCINE (#1) COVID-19 VACCI NE (#1) [facility] Comment on above: Postponed from 06/13 (Declined at this time) Start: 12-12-2023 Lipid panel Lipid Screening [facility] Start: 09-29-2023 [facility] Start: 09-28-2023 Suicide precautions [facility] Start: 07-30-2023 Behavioral Health Screening Behavioral Health Screening [facility] Start: 07-30-2023 [facility] Start: 07-29-2023 Depression Assessment Depression Ass [facility] Comment on above: Postponed from 07/30 (Declined at this time) Start: 03-30-2023 Covid-19 Vaccine () Covid-19 Vaccine () [facility] Start: 03-30-2023 Influenza vaccination [facility] Start: 12-29-2022 End: 02-28-2023 SYPHILIS TOTAL W/REFLEX SYPHILIS TOTAL W/REFLEX Lab Routine Exposure to STD Expected: 12/29/2022, Expires: 02/28/2023 [facility] Work Phone: Comment on above: Expected: 12/29/2022 , Expires: 02/28/2023 Start: 07-30-2022 DEPRESSION ASSESSMENT DEPRESSION ASS ESSMENT [facility] Start: 03-30-2022 Influenza vaccination [facility] Start: 08-24-2021 Adult depression screening assessment DEPRESSION SCREENING [facility] Start: 11-11-2020 Urine microalbumin profile [facility] Start: 03-30-2019 Influenza vaccination Flu vaccine (# 1) [place], [place] Start: 12-12-2007 Pneumococcal vaccination Pneum ococcal Vaccine (1 of 2 - PCV) [facility] Start: 12-12-2007 Urine microalbumin profile DTAP,TDAP,TD (1 - Tdap) [facility] Start: 2006 Anxiety Screening Anxiety Screening [facility] Start: 2006 Depression Screening Depression Scre ening [facility] Start: 2006 HEPATITIS C SCREENING HEPATITIS C [facility] Start: 2006 Hepatitis C screening Hepatitis C [facility] Start: 2006 HIV SCREENING HIV SCREENING [facility] Start: 2006 HIV screening HIV Screening [facility] Start: 1994 PNEUMOCOCCAL (1 - PCV) PNEUMOCOCCAL (1 - PCV) [facility] Start: 1994 Pneumococcal vaccination [facility] Start: 1993 COVID-19 VACCINE (#1) COVID-19 VACCI NE (#1) [facility] Start: 06-13-1989 COVID-19 VACCINE (#1) COVID-19 VACCI NE (#1) [facility] Start: 1988 HEPATITIS B (1 of 3 - 3-dose series) HEPATITIS B (1 of 3 - 3-dose series) [facility] Chlamydia trachomatis+Neisseria gonorrhoeae DNA [Presence] in Urine by CARLOS with probe detection GC/CHLAMYDIA AMPLIF, URINE Microbiology Routine Exposure to STD 12/29/2022 5:06 PM EDT [facility] Work Phone: End: 02-24-2026 Flexible sigmoidoscopy study COLONOSCOPY DIAGNOSTIC Endoscopy Routine Diverticulitis of large intestine with perforation without bleeding 1 Occurrences starting 02/24/2025 until 02/24/2026 [facility] Work Phone: Comment on above: 1 Occurrences starti ng 02/24/2025 until 02/24/2026 Patient Education ED Cellulitis [facility] Work Phone: Patient referral [facility] Work Phone: T VAGINALIS AMPLIFICATION T VAGINALIS AMPLIFICATION Lab Routine Exposure to STD 12/29/2022 5:02 PM EDT [facility] Work Phone: UA DIP, URINE (POC) UA DIP, URIN E (POC) Lab Routine Dysuria Ordered: 12/29/2022 [facility] Work Phone: Comment on above: Ordered: 12/29/2022 End: 02-17-2024 XR SHOULDER GENERAL 3V OR MORE AP/TRUE AP/OTHER LEFT XR SHOULDER GENERAL 3V OR MORE AP/TRUE AP/OTHER LEFT Radiology Routine Pain 1 Occurrences starting 01/18/2023 until 02/17/2024 [facility] Work Phone: Comment on above: 1 Occurrences starti ng 01/18/2023 until 02/17/2024 End: 02-17-2024 XR SHOULDER GENERAL 3V OR MORE AP/TRUE AP/OTHER RIGHT XR SHOULDER GENERAL 3V OR MORE AP/TRUE AP/OTHER RIGHT Radiology Routine Pain 1 Occurrences starting 01/18/2023 until 02/17/2024 [facility] Work Phone: Comment on above: 1 Occurrences starti ng 01/18/2023 until 02/17/2024 [facility] Immunizations Immunization Date Immunization Notes Care Provider Igor garcia 07-01-2023 tetanus toxoid, redu mag diphtheria toxoid, and acellular pertussis vaccine, adsorbed Shania Queden FITNESS DIRECTOR.BUSINESS DEVELOPMENT ENGINEER Work Phone: [facility] 11-11-2010 tetanus toxoid, redu mag diphtheria toxoid, and acellular pertussis vaccine, adsorbed Shania Queden FITNESS DIRECTOR.BUSINESS DEVELOPMENT ENGINEER Work Phone: [facility] 06-03-2009 novel Influenza-H1N1 -09, live virus for nasal administration Shania Vieira APRN.BUSINESS DEVELOPMENT ENGINEER Work Phone: [facility] 06-03-2009 influenza virus vacc ine, unspecified formulation Humera Gillis MA [facility] 11-28-2007 meningococcal polysaccharide (groups A, C, Y and W-135) diphtheria toxoid conjugate vaccine (MCV4P) Shania Vieira APRN.BUSINESS DEVELOPMENT ENGINEER Work Phone: [facility] 03-20-2005 hepatitis B vaccine, pediatric or pediatric/adolescent dosage Shania Queden FITNESS DIRECTOR.BUSINESS DEVELOPMENT ENGINEER Work Phone: [facility] 03-15-2004 hepatitis B vaccine, pediatric or pediatric/adolescent dosage Shania Queden FITNESS DIRECTOR.BUSINESS DEVELOPMENT ENGINEER Work Phone: [facility] 03-15-2004 TD(adult) unspecifie d formulation Shania Queden FITNESS DIRECTOR.BUSINESS DEVELOPMENT ENGINEER Work Phone: [facility] 03-04-2001 hepatitis B vaccine, pediatric or pediatric/adolescent dosage Shania Queden FITNESS DIRECTOR.BUSINESS DEVELOPMENT ENGINEER Work Phone: [facility] 03-04-2001 measles, mumps and rubella virus vaccine Shania Queden FITNESS DIRECTOR.BUSINESS DEVELOPMENT ENGINEER Work Phone: [facility] 02-22-1994 haemophilus influenz ae type b vaccine, conjugate unspecified formulation Shania Queden FITNESS DIRECTOR.BUSINESS DEVELOPMENT ENGINEER Work Phone: [facility] 02-15-1994 diphtheria, tetanus toxoids and acellular pertussis vaccine, unspecified formulation Shania Queden FITNESS DIRECTOR.BUSINESS DEVELOPMENT ENGINEER Work Phone: [facility] 02-15-1994 poliovirus vaccine, unspecified formulation Shania Queden FITNESS DIRECTOR.BUSINESS DEVELOPMENT ENGINEER Work Phone: [facility] 07-20-1993 haemophilus influenz ae type b vaccine, conjugate unspecified formulation Shania Queden FITNESS DIRECTOR.BUSINESS DEVELOPMENT ENGINEER Work Phone: [facility] 05-25-1993 haemophilus influenz ae type b vaccine, conjugate unspecified formulation Shania Queden FITNESS DIRECTOR.BUSINESS DEVELOPMENT ENGINEER Work Phone: [facility] 01-15-1991 diphtheria, tetanus toxoids and pertussis vaccine Shania Queden FITNESS DIRECTOR.BUSINESS DEVELOPMENT ENGINEER Work Phone: [facility] 01-15-1991 poliovirus vaccine, unspecified formulation Shania Queden FITNESS DIRECTOR.BUSINESS DEVELOPMENT ENGINEER Work Phone: [facility] 05-15-1990 haemophilus influenz ae type b vaccine, conjugate unspecified formulation Shania Queden FITNESS DIRECTOR.BUSINESS DEVELOPMENT ENGINEER Work Phone: [facility] 05-15-1990 measles, mumps and rubella virus vaccine Shania Queden FITNESS DIRECTOR.BUSINESS DEVELOPMENT ENGINEER Work Phone: [facility] 11-14-1989 diphtheria, tetanus toxoids and pertussis vaccine Shania Queden FITNESS DIRECTOR.BUSINESS DEVELOPMENT ENGINEER Work Phone: [facility] 05-23-1989 diphtheria, tetanus toxoids and pertussis vaccine Shania Queden FITNESS DIRECTOR.BUSINESS DEVELOPMENT ENGINEER Work Phone: [facility] 05-23-1989 poliovirus vaccine, unspecified formulation Shania Queden FITNESS DIRECTOR.BUSINESS DEVELOPMENT ENGINEER Work Phone: [facility] 02-07-1989 diphtheria, tetanus toxoids and pertussis vaccine Shania Queden FITNESS DIRECTOR.BUSINESS DEVELOPMENT ENGINEER Work Phone: [facility] 02-07-1989 poliovirus vaccine, unspecified formulation Shania Queden FITNESS DIRECTOR.BUSINESS DEVELOPMENT ENGINEER Work Phone: [facility] Payers Date Payer Category Payer Self-pay 2023 Unknown [id number] 2022 Medicaid [id number] 2022 Private Health Insurance HUMANA HUMANA MEDICAID [facility] [id number] 2022-Present [address] [address] [place] [address] Medicaid [id number] 2022 Medicaid [id number] 2022 Unknown 2019 Unknown [employer] BLUE CARD PPO OOS [id number] 2019-Present [phone] [address] [place] [address] PPO [id number] 1988 Unknown [id number] Unknown [id number] Unknown [id number] 62 Unknown [id number] 62 Unknown [id number] 62 Unknown [id number] 62 Unknown [id number] 62 Unknown [id number] 62 Unknown [id number] 62 Unknown [id number] 62 Unknown [id number] 62 Unknown [id number] 62 Unknown [id number] 62 Social History Date Type Detail Facility Start: 05-18-2019 End: 04-04-2023 Tobacco smoking status NHIS Current every day smoker [facility] Work Phone: Start: 05-18-2019 End: 03-12-2024 Alcohol intake Never [facility] Work Phone: Start: 05-18-2019 History SDOH Alcohol Frequency 1 [place], [place] Start: 1990 Sex Assigned At Not on file [place] History of tobacco use Cigarette Smoker [facility] Work Phone: Start: 07-16-2014 End: 03-12-2024 Cigarettes smoked current (pack per day) - Reported 1 [facility] Work Phone: Start: 07-16-2014 End: 04-04-2023 Tobacco use and exposure Smokeless tobacco non-user [facility] Work Phone: Start: 01-03-2022 End: 02-24-2025 Alcohol intake Ex-drinker (finding) [facility] Start: 05-17-2020 History SDOH Alcohol Frequency 2 [facility] Start: 02-02-2020 History SDOH Alcohol Comment 5 times a year [facility] Start: 12-24-2021 End: 01-03-2022 Exposure to SARS-CoV-2 (event) Not sure [facility] Start: 09-28-2023 Tobacco smokin g consumption unknown [facility] [place] How often to you hav e a drink containing alcohol? Monthly or less [facility] Work Phone: Average Number of Drinks Not on file [facility] Start: 1990 Sex Assigned At Male W [facility] Goals Date Patient Goal Desired Activity /State Functional Status Date Assessment Result Facility 01-26-[address] [facility] Work Phone: 07-16-2014 Are you deaf, or do you have serious difficulty hearing No 07/16/2014 8:04 AM Ladi Ocampo Ma No [facility] 07-16-2014 Are you blind, or do you have serious difficulty seeing, even when wearing glasses No 07/16/2014 8:04 AM Ladi Ocampo Ma No [facility] 07-16-2014 Do you have serious difficulty walking or climbing stairs No 07/16/2014 8:04 AM Ladi Ocampo Ma No [facility] 07-16-2014 Do you have difficul ty dressing or bathing No 07/16/2014 8:04 AM Ladi Ocampo Ma No [facility] 07-16-2014 Because of a physica l, mental, or emotional condition, do you have difficulty doing errands alone such as visiting a physician's office or shopping No 07/16/2014 8:04 AM Ladi Ocampo Ma No [facility] Mental Status Date Assessment Result Facility 01-26-2025 Cognitive function Voice/Name [facility] Work Phone: 07-16-2014 Because of a physica l, mental, or emotional condition, do you have serious difficulty concentrating, remembering, or making decisions Yes 07/16/2014 8:04 AM FRANCIA Angelo MaLadi Yes [facility] Clinical Notes 01-06-2022 to 02-24-2025 John Blas MD - 02/24/2025 11:25 AM EDTTelephone Encounter - Torrie Mariano LPN - 02/19/2025 11:07 AM EDTTelephone Encounter - Torrie Mariano LPN - 02/19/2025 11:07 AM EDT Note Date & Type Note Facility 02-24-2025 Note HNO ID: [id number] Author: JOHN BLAS MD Service: ? Author Type: Physician Type: Progress Notes Filed: 02/24/2025 11:35 Note Text: HISTORY AND PHYSICAL Gabriela Vidal Jr. 1990 REFERRING PHYSICIAN: Shania Vieira APRN* CHIEF COMPLAINT: Consult (Diverticulitis ER f/u) HPI: Gabriela Vidal is a 34-year-old male presenting for follow-up after hospitalization for diverticulitis with microperforation. Gabriela was admitted to [facility] and discharged on 01/21 after being diagnosed with diverticulitis with microperforation. He reports experiencing significant abdominal pain during the hospitalization, describing it as severe enough that he had to grab a picnic table to pull himself up and felt pain with every step. He also noted pain when riding his bicycle, particularly when hitting bumps. Since discharge, Gabriela continues to experience weird feelings in the abdominal area, though he does not describe them as painful. He reports occasional constipation but denies soreness today. He was advised to have a follow-up 2 weeks after discharge but was unable to do so due to insurance issues. He expresses fear of surgery, citing a traumatic experience his mother had with a similar condition. The patient is being seen by me today at the request of Dr. Vieira for my opinion and advice regarding Diverticulitis of large intestine with perforation without bleeding. PAST MEDICAL HISTORY Diagnosis Date Adult ADHD 07/16/2014 Anxiety and depression Attention deficit disorder with hyperactivity(314.01) CKD (chronic kidney disease), stage II Mood disorder Polysubstance abuse (HCC) Schizophrenia (HCC) Tobacco use disorder PAST SURGICAL HISTORY Procedure Laterality Date TONSILLECTOMY AND ADENOIDECTOMY T/A (under age 12 years) TONSILLECTOMY HX Current Outpatient Medications Medication Sig hydrOXYzine HCl (ATARAX) 50 mg tablet Take 50 mg by mouth every 6 hours as needed. (Patient not taking: Reported on 02/24/2025) traZODone (DESYREL) 50 mg tablet Take 50 mg by mouth at bedtime as needed. For Insomnia (Patient not taking: Reported on 02/24/2025) guanFACINE (INTUNIV) 1 mg ER 24 hr tablet(s) TAKE 2 TABLETS BY MOUTH ONCE DAILY AT BEDTIME FOR ADD OR ADHD (Patient not taking: Reported on 02/24/2025) risperiDONE (RISPERDAL) 2 mg tablet Take 2 mg by mouth daily at bedtime. (Patient not taking: Reported on 02/24/2025) lamoTRIgine (LAMICTAL) 25 mg tablet TAKE 2 TABLETS BY MOUTH ONCE DAILY AT BEDTIME FOR BIPOLAR DISORDER. (Patient not taking: Reported on 02/24/2025) ibuprofen (MOTRIN) 600 mg tablet Take 1 tablet by mouth every 6 hours as needed for pain. (Patient not taking: Reported on 02/24/2025) No current facility-administered medications for this visit. ALLERGIES: Patient has no known allergies. PERSONAL HISTORY: Social History Tobacco Use Smoking status: Every Day Current packs/day: 1.00 Average packs/day: 1 pack/day for 4.0 years (4.0 ttl pk-yrs) Types: Cigarettes Smokeless tobacco: Never Vaping Use Vaping status: current everyday user Substances: Nicotine Substance Use Topics Alcohol use: Not Currently Comment: 5 times a year Drug use: Yes Frequency: 7.0 times per week Types: Marijuana, Crystal Meth FAMILY HISTORY: FAMILY HISTORY Problem Relation Age of Onset Hypertension Mother Cancer Father esophageal REVIEW OF SYMPTOMS: The review of systems data was entered by the nurse and reviewed by me There are no exam notes on file for this visit. PHYSICAL EXAMINATION: General: The patient is 34 year old male, well nourished, well hydrated in no acute distress. The patient is oriented to time, place, and person. VITALS: Blood pressure 122/80, pulse 109, height 180.3 cm (5' 11), weight 79.2 kg (174 lb 9.6 oz), SpO2 96%. Body mass index is 24.35 kg/m?. HEENT: Normal cephalic, ataumatic, pupils are equally round, sclera are anicteric, mucous membranes are moist, oropharynx is clear. Neck has no masses, asymmetry or lymphadenopathy. Thyroid is unremarkable. Respiratory: Clear to auscultation and percussion. Normal respiratory excursion and pattern. Cardiac: Examination is regular rate and rhythm. Abdominal exam: Soft, nontender, with no palpable masses. No hepatosplenomegaly. No palpable hernias. Rectal exam: exam deferred Extremities: no clubbing, cyanosis or edema. No adenopathy. Other: LABORATORY VALUES: As Noted RADIOLOGIC STUDIES: As Noted Assessment IMPRESSION: Diverticulitis of large intestine with perforation without bleeding PLAN: I plan to perform lower endoscopy. We discussed the risks and benefits of the planned endoscopy. I have informed the patient that complications can occur including failure to complete the endoscopy and perforation. The patient had the opportunity to ask questions concerning the planned endoscopy. My staff has also explained the procedure to the patient in understandable (more content not included)... [facility] 02-24-2025 History of Present illness Narrative HISTORY AND PHYSICAL Gabriela Vidal Jr. 1990 REFERRING PHYSICIAN: Shania Vieira APRN* CHIEF COMPLAINT: Consult (Diverticulitis ER f/u) HPI: Gabriela Vidal is a 34-year-old male presenting for follow-up after hospitalization for diverticulitis with microperforation. Gabriela was admitted to [facility] and discharged on 01/21 after being diagnosed with diverticulitis with microperforation. He reports experiencing significant abdominal pain during the hospitalization, describing it as severe enough that he had to grab a picnic table to pull himself up and felt pain with every step. He also noted pain when riding his bicycle, particularly when hitting bumps. Since discharge, Gabriela continues to experience weird feelings in the abdominal area, though he does not describe them as painful. He reports occasional constipation but denies soreness today. He was advised to have a follow-up 2 weeks after discharge but was unable to do so due to insurance issues. He expresses fear of surgery, citing a traumatic experience his mother had with a similar condition. The patient is being seen by me today at the request of Dr. Vieira for my opinion and advice regarding Diverticulitis of large intestine with perforation without bleeding. PAST MEDICAL HISTORY Diagnosis Date Adult ADHD 07/16/2014 Anxiety and depression Attention deficit disorder with hyperactivity(314.01) CKD (chronic kidney disease), stage II Mood disorder Polysubstance abuse (HCC) Schizophrenia (HCC) Tobacco use disorder PAST SURGICAL HISTORY Procedure Laterality Date TONSILLECTOMY & ADENOIDECTOMY <AGE 12 T/A (under age 12 years) TONSILLECTOMY HX Current Outpatient Medications Medication Sig hydrOXYzine HCl (ATARAX) 50 mg tablet Take 50 mg by mouth every 6 hours as needed. (Patient not taking: Reported on 02/24/2025) traZODone (DESYREL) 50 mg tablet Take 50 mg by mouth at bedtime as needed. For Insomnia (Patient not taking: Reported on 02/24/2025) guanFACINE (INTUNIV) 1 mg ER 24 hr tablet(s) TAKE 2 TABLETS BY MOUTH ONCE DAILY AT BEDTIME FOR ADD OR ADHD (Patient not taking: Reported on 02/24/2025) risperiDONE (RISPERDAL) 2 mg tablet Take 2 mg by mouth daily at bedtime. (Patient not taking: Reported on 02/24/2025) lamoTRIgine (LAMICTAL) 25 mg tablet TAKE 2 TABLETS BY MOUTH ONCE DAILY AT BEDTIME FOR BIPOLAR DISORDER. (Patient not taking: Reported on 02/24/2025) ibuprofen (MOTRIN) 600 mg tablet Take 1 tablet by mouth every 6 hours as needed for pain. (Patient not taking: Reported on 02/24/2025) No current facility-administered medications for this visit. ALLERGIES: Patient has no known allergies. PERSONAL HISTORY: Social History Tobacco Use Smoking status: Every Day Current packs/day: 1.00 Average packs/day: 1 pack/day for 4.0 years (4.0 ttl pk-yrs) Types: Cigarettes Smokeless tobacco: Never Vaping Use Vaping status: current everyday user Substances: Nicotine Substance Use Topics Alcohol use: Not Currently Comment: 5 times a year Drug use: Yes Frequency: 7.0 times per week Types: Marijuana, Crystal Meth FAMILY HISTORY: FAMILY HISTORY Problem Relation Age of Onset Hypertension Mother Cancer Father esophageal REVIEW OF SYMPTOMS: The review of systems data was entered by the nurse and reviewed by me There are no exam notes on file for this visit. PHYSICAL EXAMINATION: General: The patient is 34 year old male, well nourished, well hydrated in no acute distress. The patient is oriented to time, place, and person. VITALS: Blood pressure 122/80, pulse 109, height 180.3 cm (5' 11), weight 79.2 kg (174 lb 9.6 oz), SpO2 96%. Body mass index is 24.35 kg/m . HEENT: Normal cephalic, ataumatic, pupils are equally round, sclera are anicteric, mucous membranes are moist, oropharynx is clear. Neck has no masses, asymmetry or lymphadenopathy. Thyroid is unremarkable. Respiratory: Clear to auscultation and percussion. Normal respiratory excursion and pattern. Cardiac: Examination is regular rate and rhythm. Abdominal exam: Soft, nontender, with no palpable masses. No hepatosplenomegaly. No palpable hernias. Rectal exam: exam deferred Extremities: no clubbing, cyanosis or edema. No adenopathy. Other: LABORATORY VALUES: As Noted RADIOLOGIC STUDIES: As Noted Assessment IMPRESSION: Diverticulitis of large intestine with perforation without bleeding PLAN: I plan to perform lower endoscopy. We discussed the risks and benefits of the planned endoscopy. I have informed the patient that complications can occur including failure to complete the endoscopy and perforation. The patient had the opportunity to ask questions concerning the planned endoscopy. My staff has also explained the procedure to the patient in understandable terms and has given the patient printed material concerning the procedure. The patient freely consents to surgery. 1. Diverticulitis of large intestine with perforation without bleeding (K57.20) Patient was admitted to [facility] on 01/21 with diverticulitis and a microperforation. No surgical intervention was performed. Currently, the abdomen is soft on examination, with no significant tenderness or guarding. Patient reports occasional constipation and weird feelings in the abdominal area. - Educated patient on dietary modifications, including avoiding nuts, seeds, and popcorn. - Scheduled a colonoscopy in approximately one month. - Provided detailed instructions on bowel preparation for the colonoscopy, including a liquid-only diet two days prior and consumption of the bowel prep solution the day before the procedure. - Informed patient that Lino, the chemistry intern, will contact him with the specific date and time for the colonoscopy. Diagnoses: (K57.20) Diverticulitis of large intestine with perforation without bleeding My findings have been communicated to Dr. Vieira via shared medical record. This note will be forwarded to Dr. Shania Vieira APRN.BUSINESS DEVELOPMENT ENGINEER. Return to Clinic: The patient is instructed to follow-up with me after the testing has been completed. John Blas III, MD documented in this encounter [facility] 02-19-2025 Telephone encounter Note Received email from [employer] that images uploaded. Torrie Mariano LPN [facility] 02-19-2025 Miscellaneous Notes Received email from [employer] that images uploaded. Torrie Mariano LPN [facility] of request for records to be uploaded. Torrie Mariano LPN Faxed request sent. Torrie Mariano LPN Attempted to fax request for medical records 03/2024 CT Scan and records from 01/21- (CT Scan, emergency room records, labs). Torrie Mariano LPN documented in this encounter [facility] 02-19-2025 Telephone encounter Note [facility] of request for records to be uploaded. Torrie Mariano LPN [facility] 02-18-2025 Telephone encounter Note Faxed request sent. Torrie Mariano LPN [facility] 02-18-2025 Telephone encounter Note Attempted to fax request for medical records 03/2024 CT Scan and records from 01/21- (CT Scan, emergency room records, labs). Torrie Mariano LPN [facility] 02-10-2025 Telephone encounter Note ED records placed on PCP desk Gearldine Kim MA [facility] 02-10-2025 Miscellaneous Notes ED records placed on PCP desk Geraldine Kim MA Patient contacted Madan to schedule gastroenterology consultation since his insurance is OON with [facility]. Patient was discharged from [facility] on 01/26/25 after being treated for diverticulitis of colon with perforation. Patient unsure if he must schedule first with a supervisor roller printing for follow up or if he can be seen by [facility] general surgery for recommended colonoscopy since the facility is closer to the patient. Patient was willing to schedule hospital follow up with PCP, but no availability until end of January. Patient reports still having bloating, discomfort and is requesting guidance on how to proceed with treatment for his condition. Please contact patient to advise at ph. [phone], ok to leave a detailed VM. documented in this encounter [facility] 02-06-2025 Telephone encounter Note Patient contacted Madan to schedule gastroenterology consultation since his insurance is OON with [facility]. Patient was discharged from [facility] on 01/26/25 after being treated for diverticulitis of colon with perforation. Patient unsure if he must schedule first with a supervisor roller printing for follow up or if he can be seen by [facility] general surgery for recommended colonoscopy since the facility is closer to the patient. Patient was willing to schedule hospital follow up with PCP, but no availability until end of January. Patient reports still having bloating, discomfort and is requesting guidance on how to proceed with treatment for his condition. Please contact patient to advise at ph. [phone], ok to leave a detailed VM. [facility] 01-28-2025 Note HNO ID: [id number] Author: ESTEPHANIA LEMOS LPN Service: ? Author Type: LICENSED NURSE Type: Progress Notes Filed: 01/29/2025 15:05 Note Text: TRANSITIONAL CARE MANAGEMENT (TCM) COMMUNITY MONITORING PROGRAM - [place] Provider Action/FYI: SUMMARY: Pt discharged from [facility] on 01/21/2025. Admitted for: Diverticulitis with perforation Patient seen Inpatient NURY Visit? No. Patient seen ICARE Program? No. Contact made with patient: No - next outreach attempt will be on next business day 2nd attempt to contact pt, unable to contact pt or leave message. Outreach ended [facility] 01-28-2025 History of Present illness Narrative TRANSITIONAL CARE MANAGEMENT (TCM) COMMUNITY MONITORING PROGRAM - [place] Provider Action/FYI: SUMMARY: Pt discharged from [facility] on 01/21/2025. Admitted for: Diverticulitis with perforation Patient seen Inpatient NURY Visit? No. Patient seen ICARE Program? No. Contact made with patient: No - next outreach attempt will be on next business day 2nd attempt to contact pt, unable to contact pt or leave message. Outreach ended documented in this encounter [facility] 01-28-2025 Note Patient Outreach (AG [facility]) MARCYGABRIELA Larry REID ([id number]) 1990 M Date Time Provider Department 01/28/25 SHANIA VIEIRA During your visit today, we recorded the following information about you: Estephania Lemos LPN 01/29/2025 3:05 PM Signed TRANSITIONAL CARE MANAGEMENT (TCM) COMMUNITY MONITORING PROGRAM - [place] Provider Action/FYI: SUMMARY: Pt discharged from [facility] on 01/21/2025. Admitted for: Diverticulitis with perforation Patient seen Inpatient NURY Visit? No. Patient seen ICARE Program? No. Contact made with patient: No - next outreach attempt will be on next 2nd attempt to contact pt, unable to contact pt or leave message. Outreach ended Allergies As of Date: 01/28/2025 (No Known Allergies) Date Reviewed: 01/15/2024 Reviewed by: Shania Vieira APRN.BUSINESS DEVELOPMENT ENGINEER - Fully Assessed Reason for Visit: Transition Of Care [4074] Cmt: [facility] 01/21-01/26/2025 Prescriptions as of 01/29/2025 - hydrOXYzine HCl (ATARAX) 50 mg tablet [...] for pain. Problem List As Of Date 01/28/2025 Noted Resolved Adult ADHD [F90.9] 07/16/2014 Schizoaffective disorder (HCC) [F25.9] 01/15/2024 Drug overdose [T50.901A] 01/15/2024 Substance abuse (HCC) [F19.10] 01/15/2024 Acute psychosis (HCC) [F23] 10/03/2023 Auditory hallucinations [R44.0] 01/15/2024 Marijuana use [F12.90] 01/15/2024 Encounter Status:Closed by ESTEPHANIA LEMOS on 01/29/25 [facility] 01-26-2025 Progress note [facility] 01-26-2025 Discharge summary [facility] 01-26-2025 Note [facility] Medical Records Department [address] [place] [address] Discharge Summary 01/26/25 1112 MR#: [id number] Acct: [id number] Name: GABRIELA VIDAL JrJohn Rep #: [id number] : 1990 34 From: Zechariah Bruno MD PCP: ELOISA Braden Status:ADM IN [place] [facility] [id number] Providers Date of Admission: 01/21/25 Date of Discharge: 01/26/25 Primary Care Physician: ELOISA Braden Reason For Visit: DIVERTICULITIS WITH PERFORATION Diagnosis Discharge Diagnosis (1) Diverticulitis of colon with perforation: Status: Acute Code(s): K57.20 - Diverticulitis of large intestine with perforation and abscess without bleeding Plan The patient is a 34-year-old male with sigmoid diverticulitis with microperforation. No previous history of diverticulitis. He did reportedly have colitis after having COVID years ago. He has never had a colonoscopy. Clinically he continues to improve. His white count has quickly returned to normal and his exam improves each day. Will advance diet to low residue/low fiber diet today I would recommend at least another day of IV antibiotics Tentatively plan for discharge tomorrow with oral antibiotics Would recommend colonoscopy in about 8 weeks after full resolution of symptoms. Would like to see patient as an outpatient in a couple of weeks for reevaluation and to consider possible repeat CT scan Medications at Discharge Home Medications amoxicillin 500 mg-potassium clavulanate 125 mg tablet (Augmentin) 1 tab PO BID 10 days #20 tabs 01/26/25 Hospital Course Operations None Summary of Care Provided Minutes Spent on Discharge: 15 Hospital Course: The patient is a 34-year-old male who presented to the emergency department with left lower quadrant abdominal pain. He was found to have acute sigmoid diverticulitis with a microperforation. Patient was subsequently admitted and started on IV antibiotics. His white count decreased and clinically he continued to improve each day. Diet was gradually advanced which he also tolerated without any worsening of his symptoms. Clinically his much improved. Plan is for him to be discharged to home today on a 10-day course of oral antibiotics. He will return to my office in about 2 weeks for reevaluation. He would benefit from colonoscopy in the next couple of months as well. Physical Exam Narrative He is alert and oriented x 3. He is in no acute distress. Abdomen is soft and nondistended. He still has some slight left lower quadrant discomfort with palpation. Medical Records Data Homelessness:: Sheltered Weight / BMI Weight Weight: 182 lb 12.211 oz Body Mass Index (BMI) 26.2 ABG / Lab / Microbiology Data 01/26/25 05:22 01/22/25 07:35 Laboratory: Laboratory Results - last 24 hr 01/26/25 05:22: WBC 9.6, RBC 4.74, Hgb 14.0, Hct 41.9, MCV 88.4, MCH 29.5, MCHC 33.4, RDW Std Deviation 39.3, RDW Coeff of Thomas 12.1, Plt Count 320, MPV 10.7, Immature Gran % (Auto) 0.700, Neut % (Auto) 66.8, Lymph % (Auto) 20.9, Pitt % (Auto) 8.5, Eos % (Auto) 2.6, Baso % (Auto) 0.5, Absolute Neuts (auto) 6.4, Absolute Lymphs (auto) 2.00, Nucleated RBC % 0 D/C Instructions Discharge Diet: Light diet - advance as tolerated Discharge Activity: Return to Normal Activity Lifting Restrictions: None Call your doctor if your incision/area has: - (Please call if any abdominal pain worsens or if significant fevers or chills develop) DC O2, CPAP, BIPAP Needs Home O2 Discharge instructions: No DC home with Oxygen: No Please Follow Up With: Zechariah Bruno MD When: 2 weeks. Please call office to schedule appointment Meaningful Use Info Meaningful Use Meaningful Use Diagnoses (Choose all that apply): None applicable Ischemic Stroke Statin Dosing Therapy Reference: STATIN DOSE THERAPY REFERENCE: * Patients > 75 years receive moderate or high dose statin therapy. * Patients 75 years or YOUNGER should receive HIGH intensity statin dose unless contraindicated. You will be required to document reason for non-treatment if statin daily dose does not meet guidelines. HIGH DOSE STATIN THERAPY DAILY Atorvastatin > than or = to 40 mg Rosuvastatin > than or = to 20 mg Amlodipine + Atorvastatin > than or = to 2.5/40 mg Ezetimibe + Simvastatin 10/80 mg Simvastatin 80mg Discharge Plan Admission Admit Date/Time: 01/21/25 21:42 Primary Reason for Your Visit: Sigmoid colon Diverticulitis with microperforation Attending Provider: Zechariah Bruno Primary Care Provider: Shania Vieira NP Discharge Orders/Prescriptions Prescriptions: New amoxicillin-pot clavulanate [Augmentin] 500-125 mg tablet 1 tab PO BID 10 Days Qty: 20 0RF Referrals / Follow Up: Shania Vieira NP, MANAGER GOLF-C [Primary Care Provider] - Disposition Disposition (needs filled (more content not included)... [facility] 01-26-2025 Progress note Note Date/Time January 26, 2025 11:52am [facility] Medical Records Department [address] [place] [id number] Progress Note - Surgery 01/26/25 0826 MR#: [id number] Acct: [id number] Name: MARCYGABRIELA CRESPO Rep #:[id number] : 1990 34 From: Anabel ADELR PA-C PCP: ELOISA Braden Status:ADM I N Location: [place] [address] Objective Data Objective Data Vital Signs: Vital Signs Temp Pulse Resp BP Pulse Ox O2 Del Method 97.8 F 65 16 146/98 H 100 Room Air 01/26/25 02:57 01/26/25 02:57 01/26/25 02:57 01/26/25 02:57 01/26/25 02:57 01/26/25 02:57 Oxygen Delivery Method Room Air Weight: 182 lb 12.211 oz Body Mass Index (BMI) 26.2 Intake & Output: Intake and Output for Last 24 Hours 01/24/25 01/25/25 01/26/25 23:59 23:59 23:59 Intake Total 7104 / 7584 5744 / 5744 350 / 350 Balance 7104 / 7584 5744 / 5744 350 / 350 Lab / Micro Data 01/26/25 05:22 01/22/25 07:35 Labs: Laboratory Results - last 24 hr 01/26/25 05:22: WBC 9.6, RBC 4.74, Hgb 14.0, Hct 41.9, MCV 88.4, MCH 29.5, MCHC 33.4, RDW Std Deviation 39.3, RDW Coeff of Thomas 12.1, Plt Count 320, MPV 10.7, Immature Gran % (Auto) 0.700, Neut % (Auto) 66.8, Lymph % (Auto) 20.9, Pitt % (Auto) 8.5, Eos % (Auto) 2.6, Baso % (Auto) 0.5, Absolute Neuts (auto) 6.4, Absolute Lymphs (auto) 2.00, Nucleated RBC % 0 Rhythm Strip Rhythm Strip: Sinus Tach Rate: 119 Ectopy: None Social Homelessness:: Sheltered 01/26/25 0826 <Electronically signed by Anabel ADLER PA-C> Cosigner Signature (if applicable): CC: ~ Signed ADDENDUM by KRISTEN Marie on 01/26/25 at 1152 Addendum Patient evaluated resting comfortably in bed. He notes epigastric discomfort this morning. Unsure if this is hunger related. He notes very minimal amount of nausea this morning. He otherwise notes slight discomfort in the left lower quadrant of his abdomen. He is tolerating his current diet without any concerns.He denies any vomiting. Exam- abdomen soft, slight tenderness to palpation of the left lower quadrant. Plan- I am seeing this patient in conjunction with Dr. Bruno. He has independently evaluated this patient. Labs reviewed Patient seems to be improving Plan to discharge home today pending tolerating breakfast. he will continue oralantibiotics at discharge and follow-up with Dr. Bruno as an outpatient in 2 weeks to discuss a colonoscopy. 01/26/25 1152<Electronically signed by Anabel Marie PA PA-C> Cosigner Signature (if applicable): cc: ~* Signed [facility] Work Phone: 1(636) 632-128606-29-2025 Progress note Author Zechariah Bruno [facility] Note Date/Time January 25, 2025 11:0 0am [facility] Medical Records Department [address] [place] [address] Progress Note - Surgery 01/25/25 1055 MR#: [id number] Acct: [id number] Name: GABRIELA VIDAL Jr. Rep #:[id number] : 1990 34 From: Zechariah Bruno MD PCP: Shania Vieira NP-C Status:ADM I N Location: [place] [address] Subjective Subjective Patient seen and evaluated on rounds this morning. He has no new issues or complaints. He states abdominal pain continues to improve Objective Data Objective Data Vital Signs: Vital Signs Temp Pulse Resp BP Pulse Ox O2 Del Method 98.5 F 74 16 143/96 H 100 Room Air 01/25/25 08:38 01/25/25 08:38 01/25/25 08:38 01/25/25 08:38 01/25/25 08:46 01/25/25 08:46 Oxygen Delivery Method Room Air Weight: 182 lb 12.211 oz Body Mass Index (BMI) 26.2 Intake & Output: Intake and Output for Last 24 Hours 01/23/25 01/24/25 01/25/25 23:59 23:59 23:59 Intake Total 2350.00 / 3550.00 7104 / 7584 940 / 940 Balance 2350.00 / 3550.00 7104 / 7584 940 / 940 Lab / Micro Data 01/24/25 05:20 01/22/25 07:35 Rhythm Strip Rhythm Strip: Sinus Tach Rate: 119 Ectopy: None Social Homelessness:: Sheltered Physical Exam Narrative He is alert and oriented x 3. He is in no acute distress. Abdomen is soft and nondistended. Mild left lower quadrant tenderness with palpation. No rebound or guarding Assessment & Plan Assessment/Plan (1) Diverticulitis of colon with perforation: PLAN: Plan The patient is a 34-year-old male with sigmoid diverticulitis with microperforation. No previous history of diverticulitis. He did reportedly have colitis after having COVID years ago. He has never had a colonoscopy. Clinically he continues to improve. His white count has quickly returned to normal and his exam improves each day. Will advance diet to low residue/low fiber diet today I would recommend at least another day of IV antibiotics Tentatively plan for discharge tomorrow with oral antibiotics Would recommend colonoscopy in about 8 weeks after full resolution of symptoms. Would like to see patient as an outpatient in a couple of weeks for reevaluationand to consider possible repeat CT scan Charges/Coding Visit Charges Inpatient E&M: 28128 Subs Hosp L2 01/25/25 1100 <Electronically signed by Zechariah Bruno MD> Cosigner Signature (if applicable): CC: ~ Signed [facility] Work Phone: 1(902) 848-631406-29-2025 Progress note [facility] Medical Records Department [address] [place] [address] Progress Note - Surgery 01/25/25 1055 MR#: [id number] Acct: [id number] Name: GABRIELA VIDAL Rep #:[id number] : 1990 34 From: Zechariah Bruno MD PCP: Shania Vieira NP-C Status:ADM I N Location: [place] [address] Subjective Subjective Patient seen and evaluated on rounds this morning. He has no new issues or complaints. He states abdominal pain continues to improve Objective Data Objective Data Vital Signs: Vital Signs Temp Pulse Resp BP Pulse Ox O2 Del Method 98.5 F 74 16 143/96 H 100 Room Air 01/25/25 08:38 01/25/25 08:38 01/25/25 08:38 01/25/25 08:38 01/25/25 08:46 01/25/25 08:46 Oxygen Delivery Method Room Air Weight: 182 lb 12.211 oz Body Mass Index (BMI) 26.2 Intake & Output: Intake and Output for Last 24 Hours 01/23/25 01/24/25 01/25/25 23:59 23:59 23:59 Intake Total 2350.00 / 3550.00 7104 / 7584 940 / 940 Balance 2350.00 / 3550.00 7104 / 7584 940 / 940 Lab / Micro Data 01/24/25 05:20 01/22/25 07:35 Rhythm Strip Rhythm Strip: Sinus Tach Rate: 119 Ectopy: None Social Homelessness:: Sheltered Physical Exam Narrative He is alert and oriented x 3. He is in no acute distress. Abdomen is soft and nondistended. Mild left lower quadrant tenderness with palpation. No rebound orguarding Assessment & Plan Assessment/Plan (1) Diverticulitis of colon with perforation: PLAN: Plan The patient is a 34-year-old male with sigmoid diverticulitis with microperforation. No previous history of diverticulitis. He did reportedly have colitis after having COVID years ago. He has never had a colonoscopy. Clinically he continues to improve. His white count has quickly returned to normal and his exam improves each day. Will advance diet to low residue/low fiber diet today I would recommend at least another day of IV antibiotics Tentatively plan for discharge tomorrow with oral antibiotics Would recommend colonoscopy in about 8 weeks after full resolution of symptoms. Would like to see patient as an outpatient in a couple of weeks for reevaluationand to consider possible repeat CT scan Charges/Coding Visit Charges Inpatient E&M: 24837 Subs Hosp L2 01/25/25 1100 Cosigner Signature (if applicable): CC: ~ Signed [facility]06-[facility]-2025 Progress note Author Zechariah Bruno [facility] Note Date/Time January 24, 2025 1:06 pm [facility] Medical Records Department [address] [place] [address] Progress Note - Surgery 01/24/25 1300 MR#: [id number] Acct: [id number] Name: GABRIELA VIDAL Rep #:[id number] : 1990 34 From: Zechariah Bruno MD PCP: ELOISA Braden Status:ADM I N Location: [place] [id number] Subjective Subjective Patient was seen evaluated on rounds this morning. He denies any new issues or complaints. He states that his abdominal pain is continuing to improve. He still has pain in the left lower abdomen but this is a fraction of the pain thathe presented with. He denies any fevers or chills. No nausea or vomiting. He tolerated a clear liquid diet without incident. Objective Data Objective Data Vital Signs: Vital Signs Temp Pulse Resp BP Pulse Ox O2 Del Method 98.0 F 77 18 143/89 H 100 Room Air 01/24/25 10:01/24/25 10:01/24/25 10:01/24/25 10:01/24/25 10:01/24/25 10:26 Oxygen Delivery Method Room Air Weight: 182 lb 12.211 oz Body Mass Index (BMI) 26.2 Intake & Output: Intake and Output for Last 24 Hours 01/22/25 01/23/25 01/24/25 23:59 23:59 23:59 Intake Total 2296.67 / 2296.67 2350.00 / 3550.00 3300 / 3300 Balance 2296.67 / 2296.67 2350.00 / 3550.00 3300 / 3300 Lab / Micro Data 01/24/25 05:20 01/22/25 07:35 Labs: Laboratory Results - last 24 hr 01/24/25 05:20: WBC 7.7, RBC 4.35 L, Hgb 13.0, Hct 38.3 L, MCV 88.0, MCH 29.9, MCHC 33.9, RDW Std Deviation 39.5, RDW Coeff of Thomas 12.1, Plt Count 266, MPV 11.2, Immature Gran % (Auto) 0.400, Neut % (Auto) 72.1 H, Lymph % (Auto) 15.6 L,Pitt % (Auto) 8.9, Eos % (Auto) 2.7, Baso % (Auto) 0.3, Absolute Neuts (auto) 5.6, Absolute Lymphs (auto) 1.20, Nucleated RBC % 0 Rhythm Strip Rhythm Strip: Sinus Tach Rate: 119 Ectopy: None Social Homelessness:: Sheltered Physical Exam Narrative He is alert and oriented x 3. He is in no acute distress. Abdomen is soft and nondistended. There is mild tenderness to palpation in the left lower quadrant. No rebound or guarding. Assessment & Plan Assessment/Plan (1) Diverticulitis of colon with perforation: PLAN: Plan The patient is a 34-year-old male with sigmoid diverticulitis with microperforation. No previous history of diverticulitis. He did reportedly have colitis after having COVID years ago. He has never had a colonoscopy. Clinically he continues to improve. His white count has quickly returned to normal and his exam improves each day. Diet was advanced to a full liquid diet today I would recommend at least another day of IV antibiotics Consider discharge home in the next couple of days with oral antibiotics Would recommend colonoscopy in about 8 weeks after full resolution of symptoms. Would like to see patient as an outpatient in a couple of weeks for reevaluationand to consider possible repeat CT scan Charges/Coding Visit Charges Inpatient E&M: 76266 Subs Hosp L3 01/24/25 1306 <Electronically signed by Zechariah Bruno MD> Cosigner Signature (if applicable): CC: ~ Signed [facility] Work Phone: 1(557) 541-786006-28-2025 Progress note [facility] Medical Records Department [address] [place] [address] Progress Note - Surgery 01/24/25 1300 MR#: [id number] Acct: [id number] Name: GABRIELA VIDAL Jr. Rep #:[id number] : 1990 34 From: Zechariah Bruno MD PCP: Shania Vieira NP-C Status:ADM I N Location[place] [facility] [id number] Subjective Subjective Patient was seen evaluated on rounds this morning. He denies any new issues or complaints. He states that his abdominal pain is continuing to improve. He still has pain in the left lower abdomen but this is a fraction of the pain thathe presented with. He denies any fevers or chills. No nausea or vomiting. He tolerated a clear liquid diet without incident. Objective Data Objective Data Vital Signs: Vital Signs Temp Pulse Resp BP Pulse Ox O2 Del Method 98.0 F 77 18 143/89 H 100 Room Air 01/24/25 10:26 01/24/25 10:26 01/24/25 10:26 01/24/25 10:26 01/24/25 10:26 01/24/25 10:26 Oxygen Delivery Method Room Air Weight: 182 lb 12.211 oz Body Mass Index (BMI) 26.2 Intake & Output: Intake and Output for Last 24 Hours 01/22/25 01/23/25 01/24/25 23:59 23:59 23:59 Intake Total 2296.67 / 2296.67 2350.00 / 3550.00 3300 / 3300 Balance 2296.67 / 2296.67 2350.00 / 3550.00 3300 / 3300 Lab / Micro Data 01/24/25 05:20 01/22/25 07:35 Labs: Laboratory Results - last 24 hr 01/24/25 05:20: WBC 7.7, RBC 4.35 L, Hgb 13.0, Hct 38.3 L, MCV 88.0, MCH 29.9, MCHC 33.9, RDW Std Deviation 39.5, RDW Coeff of Thomas 12.1, Plt Count 266, MPV 11.2, Immature Gran % (Auto) 0.400, Neut % (Auto) 72.1 H, Lymph % (Auto) 15.6 L,Pitt % (Auto) 8.9, Eos % (Auto) 2.7, Baso % (Auto) 0.3, Absolute Neuts (auto) 5.6, Absolute Lymphs (auto) 1.20, Nucleated RBC % 0 Rhythm Strip Rhythm Strip: Sinus Tach Rate: 119 Ectopy: None Social Homelessness:: Sheltered Physical Exam Narrative He is alert and oriented x 3. He is in no acute distress. Abdomen is soft and nondistended. There is mild tenderness to palpation in the left lower quadrant.No rebound or guarding. Assessment & Plan Assessment/Plan (1) Diverticulitis of colon with perforation: PLAN: Plan The patient is a 34-year-old male with sigmoid diverticulitis with microperforation. No previous history of diverticulitis. He did reportedly have colitis after having COVID years ago. He has never had a colonoscopy. Clinically he continues to improve. His white count has quickly returned to normal and his exam improves each day. Diet was advanced to a full liquid diet today I would recommend at least another day of IV antibiotics Consider discharge home in the next couple of days with oral antibiotics Would recommend colonoscopy in about 8 weeks after full resolution of symptoms. Would like to see patient as an outpatient in a couple of weeks for reevaluationand to consider possible repeat CT scan Charges/Coding Visit Charges Inpatient E&M: 23506 Subs Hosp L3 01/24/25 1301 Cosigner Signature (if applicable): CC: ~ Signed [facility]06-27-2025 Progress note Author Zechariah Bruno [facility] Note Date/Time January 23, 2025 4:45 pm [facility] Medical Records Department [address] [place] [address] Progress Note - Surgery 01/23/25 1638 MR#: [id number] Acct: [id number] Name: GABRIELA VIDAL Jr. Rep #:[id number] : 1990 34 From: Zechariah Bruno MD PCP: Shania Vieira MANAGER GOLF-C Status:ADM I N Location: [place] [address] Subjective Subjective The patient states that he is doing well today. He states he is still having pain in the left lower quadrant but this pain seems to be lasting today. He denies any fevers or chills. No nausea or vomiting. He states that he is hungry and would like to eat if possible. He did have a bowel movement per nursing staff. White count continues to normalize Objective Data Objective Data Vital Signs: Vital Signs Temp Pulse Resp BP Pulse Ox O2 Del Method 98.6 F 73 18 120/82 H 97 Room Air 01/23/25 14:00 01/23/25 14:00 01/23/25 14:00 01/23/25 14:00 01/23/25 14:00 01/23/25 14:00 Oxygen Delivery Method Room Air Weight: 182 lb 12.211 oz Body Mass Index (BMI) 26.2 Intake & Output: Intake and Output for Last 24 Hours 01/21/25 01/22/25 01/23/25 23:59 23:59 23:59 Intake Total 1150 / 1150 2296.67 / 2296.67 1250.00 / 1250.00 Balance 1150 / 1150 2296.67 / 2296.67 1250.00 / 1250.00 Lab / Micro Data 01/23/25 05:53 01/22/25 07:35 Labs: Laboratory Results - last 24 hr 01/23/25 05:53: WBC 8.4, RBC 4.27 L, Hgb 12.6 L, Hct 37.5 L, MCV 87.8, MCH 29.5,MCHC 33.6, RDW Std Deviation 39.4, RDW Coeff of Thomas 12.3, Plt Count 204, MPV 11.6, Immature Gran % (Auto) 0.400, Neut % (Auto) 73.1 H, Lymph % (Auto) 12.6 L,Pitt % (Auto) 10.9 H, Eos % (Auto) 2.6, Baso % (Auto) 0.4, Absolute Neuts (auto)6.1, Absolute Lymphs (auto) 1.06, Nucleated RBC % 0 Rhythm Strip Rhythm Strip: Sinus Tach Rate: 119 Ectopy: None Social Homelessness:: Sheltered Physical Exam Narrative Patient is alert and oriented x 3. No acute distress. Abdomen is soft and nondistended. Mild to moderate tenderness to palpation esteban the left lower quadrant. No rebound or guarding. This abdominal exam continues to improve in terms of pain Assessment & Plan Assessment/Plan (1) Diverticulitis of colon with perforation: PLAN: Plan Patient is a 34-year-old male admitted with left lower quadrant pain secondary to sigmoid diverticulitis with microperforation. Clinically he seems to be continuing to improve on antibiotic therapy. Recommend continued antibiotics. I am giving him the okay to begin a clear liquid diet. Anticipate a few more days of IV antibiotics followed by oral antibiotics on discharge. He will likely require colonoscopy as an outpatient in the next couple of months after resolution of current diverticulitis 01/23/25 1645 <Electronically signed by Zechariah Bruno MD> Cosigner Signature (if applicable): CC: ~ Signed [facility] Work Phone: 1(762) 997-372406-27-2025 Progress note [facility] Medical Records Department [address] [place] [address] Progress Note - Surgery 01/23/25 1638 MR#: [id number] Acct: [id number] Name: GABRIELA VIDAL Rep #:[id number] : 1990 34 From: Zechariah Bruno MD PCP: ELOISA Braden Status:ADM I N Location: DE3 [id number] Subjective Subjective The patient states that he is doing well today. He states he is still having pain in the left lowerquadrant but this pain seems to be lasting today. He denies any fevers or chills. No nausea or vomiting. He states that he is hungry and would like to eat if possible. He did have a bowel movement per nursing staff. White count continues to normalize Objective Data Objective Data Vital Signs: Vital Signs Temp Pulse Resp BP Pulse Ox O2 Del Method 98.6 F 73 18 120/82 H 97 Room Air 01/23/25 14:00 01/23/25 14:00 01/23/25 14:00 01/23/25 14:00 01/23/25 14:00 01/23/25 14:00 Oxygen Delivery Method Room Air Weight: 182 lb 12.211 oz Body Mass Index (BMI) 26.2 Intake & Output: Intake and Output for Last 24 Hours 01/21/25 01/22/25 01/23/25 23:59 23:59 23:59 Intake Total 1150 / 1150 2296.67 / 2296.67 1250.00 / 1250.00 Balance 1150 / 1150 2296.67 / 2296.67 1250.00 / 1250.00 Lab / Micro Data 01/23/25 05:53 01/22/25 07:35 Labs: Laboratory Results - last 24 hr 01/23/25 05:53: WBC 8.4, RBC 4.27 L, Hgb 12.6 L, Hct 37.5 L, MCV 87.8, MCH 29.5,MCHC 33.6, RDW Std Deviation 39.4, RDW Coeff of Thomas 12.3, Plt Count 204, MPV 11.6, Immature Gran % (Auto) 0.400, Neut %(Auto) 73.1 H, Lymph % (Auto) 12.6 L,Pitt % (Auto) 10.9 H, Eos % (Auto) 2.6, Baso % (Auto) 0.4, Absolute Neuts (auto)6.1, Absolute Lymphs (auto) 1.06, Nucleated RBC % 0 Rhythm Strip Rhythm Strip: Sinus Tach Rate: 119 Ectopy: None Social Homelessness:: Sheltered Physical Exam Narrative Patient is alert and oriented x 3. No acute distress. Abdomen is soft and nondistended. Mild to moderate tenderness to palpation esteban the left lower quadrant. No rebound or guarding. This abdominal exam continues to improve in terms of pain Assessment & Plan Assessment/Plan (1) Diverticulitis of colon with perforation: PLAN: Plan Patient is a 34-year-old male admitted with left lower quadrant pain secondary to sigmoid diverticulitis with microperforation. Clinically he seems to be continuing to improve on antibiotic therapy. Recommend continued antibiotics. I am giving him the okay to begin a clear liquid diet. Anticipate afew more days of IV antibiotics followed by oral antibiotics on discharge. He will likely require colonoscopy as an outpatient in the next couple of months after resolution of current diverticulitis 01/23/25 1645 Cosigner Signature (if applicable): CC: ~ Signed [facility]06-26-2025 Discharge summary Author Shiela Quinn [facility] Note Date/Time January 22, 2025 2:30 pm [facility] Medical Records Department [address] [place] [address] Emergency Department Summary 01/21/25 MR#: [id number] Acct: [id number] Name: GABRIELA VIDAL Jr. Rep #:[id number] : 1990 34 From: Shiela Stone PCP: ELOISA Braden Status:ADM I N Location: [place] [address] HPI HPI - GI History of Present Illness Chief Complaint: Abd Pain Informant: patient Narrative Narrative: Patient is a 34-year-old male with history of schizophrenia, CKD 2, ADHD and polysubstance abuse presenting with lower abdominal pain. Patient states he gota new e-bike is riding his bike a lot. He does know if he has been overdoing itin the heat and also has been having abdominal pain. Is also not sure if he maybe pulled something. 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 For the past few days has been having pain mostly in his left lower quadrant but it radiates to his periumbilical area as well. He denies associated nausea or vomiting. States that he usually does not drink much water and will mostly either drink tea or pop. He has been trying to drink water today. He states he has been urinating but his urine is been a lot darker. Is having associated abdominal cramping. Denies any fevers. Denies associated chest pain or shortness of breath. Deniesany leg swelling. States at times the pain in his abdomen does radiate to his groin but he does not have any specific testicular pain. States he did have something similar to this in the past which was associated with COVID. He does report that he has been mildly constipated. Feels that he might need to have a bowel movement today. [facility] Medical History ADHD Schizophrenia Mood disorder Anxiety and depression CKD (chronic kidney disease), stage II Polysubstance abuse Tobacco use Home Medications ?Medication ?Instructions ?Recorded ?Last Taken ?Type NK 01/21/25 Unknown History Allergy/AdvReac Type Severity Reaction Status Date / Time No Known Allergies Allergy Verified 01/21/25 16:10 Family History Mother Kidney disease Father Cancer [...] Constitutional Constitutional ED: Denies chills or fever(s) Cardiovascular Cardiovascular: Denies chest pain Respiratory/Chest Respiratory/Chest: Denies cough or dyspnea Gastrointestinal Gastrointestinal: Reports abdominal pain and constipation; Denies vomiting Genitourinary Genitourinary ED: Reports dysuria; Denies hematuria Musculoskeletal Musculoskeletal: Reports myalgias; Denies arthralgias Integumentary Denies rash Neurologic Neurologic: Denies weakness EXAM Physical Exam Const Vital Signs: 01/21/25 16:05 01/21/25 18:05 01/21/25 20:00 Temperature 97.5 F L Temperature Source Temporal Pulse Rate 134 H 99 74 Respiratory Rate 18 18 18 Respiratory Effort Respiratory Depth Respiratory Pattern Blood Pressure 140/83 H 136/88 H 136/76 H Blood Pressure Mean 102 104 96 Blood Pressure Source Blood Pressure Position Blood Pressure Location Pulse Ox 98 95 99 Oxygen Delivery Method Room Air Room Air 01/21/25 21:53 01/21/25 21:53 01/21/25 23:03 Temperature 100 F H 100 F H 98.1 F Temperature Source Oral Temporal Pulse Rate 118 H 118 H 112 H Respiratory Rate 18 18 16 Respiratory Effort Respiratory Depth Respiratory Pattern Blood Pressure 130/83 H 130/83 H 111/70 Blood Pressure Mean 98 98 83 Blood Pressure Source Monitor Blood Pressure Position Semi-Fowlers Blood Pressure Location Left Forearm Pulse Ox 100 100 100 Oxygen Delivery Method Room Air Room Air 01/21/25 23:19 Temperature Temperature Source Pulse Rate Respiratory Rate Respiratory Effort Normal Non-Labored Respiratory Depth Normal Respiratory Pattern Normal Blood Pressure Blood Pressure Mean Blood Pressure Source Blood Pressure Position Blood Pressure Location Pulse Ox Oxygen Delivery Method Room Air MDM MDM MDM Narrative Medical decision making narrative: Patient evaluated for cramps, worsening left lower quadrant abdominal pain. He is initially quite tachycardic on arrival but does improve with IV fluids in theemergency room. He has significant pain in his left lower quadrant. Differential includes abdominal wall trauma, rhabdomyolysis, renal colic, diverticulitis, pyelonephritis. He has a leukocytosis white blood cell count of 17.8. CMP shows a mild elevation of his creatinine 1.22 but this appears to be near his baseline. CPK is normal. Urinalysis is not excess with infection. CT the abdomen pelvis shows acute sigmoid colonic diverticulitis with perforation surrounding inflammation and fluid. No abscess appreciated. Case discussed with general surgery, Dr. Bruno, who recommends IV Rocephin and Flagyl. Will admit to his service. Patient is agreeable with this plan of care. Patient is she was given Tylenol in the emergency room but then is given further pain medication while in the emergency room Lab Data Attestation: I reviewed the patient's lab results. Labs: Laboratory Results - last 24 hr 01/21/25 19:10 WBC 17.8 H RBC 4.82 Hgb 14.5 Hct 42.2 MCV 87.6 MCH 30.1 MCHC 34.4 RDW Std Deviation 39.0 RDW Coeff of Thomas 12.1 Plt Count 193 MPV 10.6 Immature Gran % (Auto) 0.700 Neut % (Auto) 80.6 H Lymph % (Auto) 9.1 L Pitt % (Auto) 9.0 Eos % (Auto) 0.3 Baso % (Auto) 0.3 Absolute Neuts (auto) 14.4 H Absolute Lymphs (auto) 1.62 Nucleated RBC % 0 Platelet Estimate ADEQUATE Sodium 133 Potassium 4.1 Chloride 97 L Carbon Dioxide 24.9 Anion Gap 11 BUN 10 Creatinine 1.22 H Estim Creat Clear Calc 83.71 Est GFR (MDRD) Non-Af 79 BUN/Creatinine Ratio 7.9 L Glucose 104 H Calcium 9.2 Magnesium 2.2 Total Bilirubin 1.40 H AST 13 ALT 13 Alkaline Phosphatase 79 Total Creatine Kinase 82 Total Protein 7.1 Albumin 3.8 Globulin 3.3 Albumin/Globulin Ratio 1.2 Urine Color Yellow Urine Clarity Cloudy Urine pH 6.0 Ur Specific [place] 1.020 Urine Protein 30 H Urine Glucose (UA) Normal Urine Ketones 5 H Urine Occult Blood 10 H Urine Nitrite Negative Urine Bilirubin Negative Urine Urobilinogen 1 H Ur Leukocyte Esterase Negative Urine RBC 0-5 SEEN Urine WBC 0-5 SEEN Ur Squamous Epith Cells 0-5 SEEN Urine Bacteria 0 SEEN Urine Mucus 0 SEEN Radiography Diagnostic Testing: Clinical Impression(s) from Imaging Studies Abdomen/Pelvis CT 01/21/25 19:42 IMPRESSION: Acute sigmoid colon diverticulitis with perforation [...] EST on 01/21/2025. Reading Location: [facility] Rhythm Strip Rhythm Strip: Sinus Tach Rate: 119 Ectopy: None EKG Initial EKG: Attestation: I personally reviewed and interpreted this EKG as follows: Interpretation: Sinus Tachycardia Comments: Sinus tachycardia at a rate of 119 bpm Right axis deviation Normal intervals Normal ST segments Compared to prior EKG patient is not tachycardic Management Discussion w/another healthcare provider: Shift Mechanic Discharge Plan Dx/Rx/DC Orders Clinical Impression: Diverticulitis of colon with perforation, Tachycardia, Leukocytosis Disposition Disposition: Acute Care Hospital [facility] Discharge Date/Time: 01/21/25 22:46 What to do if you have Problems For any increased pain, shortness of breath, bleeding, nausea or vomiting, chestpain, or any unexpected problems, contact your Primary Care Provider. Call [facility] ([phone]) or report to the closest Emergency Room. Call 911 if necessary. 01/22/25 1430 <Electronically signed by Shiela Quinn DO> Cosigner Signature (if applicable): CC: ELOISA Vieira ~ Signed [facility] Work Phone: [phone]) 796-836706-26-2025 Progress note Author Zechariah Bruno [facility] Note Date/Time January 22, 2025 2:24 pm [facility] Medical Records Department [address] [place] [address] Progress Note 01/22/25 1424 MR#: [id number] Acct: [id number] Name: GABRIELA VIDAL Jr. Rep #:[id number] : 1990 34 From: Zechariah Bruno MD PCP: KERRY BradenC Status:ADM I N Location: [place] [address] Progress Note Patient seen and examined this afternoon. Patient stating his pain is improving. No fevers or chills this afternoon. Recommend continued IV antibiotics and n.p.o. Will continue to follow closely 01/22/251423 <Electronically signed by Zechariah Bruno MD> Zechariah Bruno MD Cosigner Signature (if applicable): CC: ~ Signed [facility] Work Phone: 1(373) 692-239406-26-2025 Discharge summary [facility] Medical Records Department [address] [place] [address] Emergency Department Summary 01/21/25 MR#: [id number] Acct: [id number] Name: GABRIELA VIDAL Jr. Rep #:[id number] : 1990 34 From: Shiela Stone PCP: ELOISA Braden Status:ADM I N Location: [place] [address] HPI HPI - GI History of Present Illness Chief Complaint: Abd Pain Informant: patient Narrative Narrative: Patient is a 34-year-old male with history of schizophrenia, CKD 2, ADHD and polysubstance abuse presenting with lower abdominal pain. Patient states he gota new e-bike is riding his bike a lot. He does know if he has been overdoing itin the heat and also has been having abdominal pain. Is also notsure if he maybe pulled something. 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 For the past few days has beenhaving pain mostly in his left lower quadrant but it radiates to his periumbilical area as well. Hedenies associated nausea or vomiting. States that he usually does not drink much water and will mostly either drink tea or pop. He has been trying to drink water today. He states he has been urinating but his urine is been a lot darker. Is having associated abdominal cramping. Denies any fevers. Denies associated chest pain or shortness of breath. Deniesany leg swelling. States at times the pain in his abdomen does radiate to his groin but he does not have any specific testicular pain. States he did have something similar to this in the past which was associated with COVID. He does report that he has been mildly constipated. Feels that he might need to have a bowel movement today. PFSH PFSH Medical History ADHD Schizophrenia Mood disorder Anxiety and depression CKD (chronic kidney disease), stage II Polysubstance abuse Tobacco use Home Medications ?Medication ?Instructions ?Recorded ?Last Taken ?Type NK 01/21/25 Unknown History Allergy/AdvReac Type Severity Reaction Status Date / Time No Known Allergies Allergy Verified 01/21/25 16:10 Family History Mother Kidney disease Father Cancer [...] Constitutional Constitutional ED: Denies chills or fever(s) Cardiovascular Cardiovascular: Denies chest pain Respiratory/Chest Respiratory/Chest: Denies cough or dyspnea Gastrointestinal Gastrointestinal: Reports abdominal pain and constipation; Denies vomiting Genitourinary Genitourinary ED: Reports dysuria; Denies hematuria Musculoskeletal Musculoskeletal: Reports myalgias; Denies arthralgias Integumentary Denies rash Neurologic Neurologic: Denies weakness EXAM Physical Exam Const Vital Signs: 01/21/25 16:05 01/21/25 18:05 01/21/25 20:00 Temperature 97.5 F L Temperature Source Temporal Pulse Rate 134 H 99 74 Respiratory Rate 18 18 18 Respiratory Effort Respiratory Depth Respiratory Pattern Blood Pressure 140/83 H 136/88 H 136/76 H Blood Pressure Mean 102 104 96 Blood Pressure Source Blood Pressure Position Blood Pressure Location Pulse Ox 98 95 99 Oxygen Delivery Method Room Air Room Air 01/21/25 21:53 01/21/25 21:53 01/21/25 23:03 Temperature 100 F H 100 F H 98.1 F Temperature Source Oral Temporal Pulse Rate 118 H 118 H 112 H Respiratory Rate 18 18 16 Respiratory Effort Respiratory Depth Respiratory Pattern Blood Pressure 130/83 H 130/83 H 111/70 Blood Pressure Mean 98 98 83 Blood Pressure Source Monitor Blood Pressure Position Semi-Fowlers Blood Pressure Location Left Forearm Pulse Ox 100 100 100 Oxygen Delivery Method Room Air Room Air 01/21/25 23:19 Temperature Temperature Source Pulse Rate Respiratory Rate Respiratory Effort Normal Non-Labored Respiratory Depth Normal Respiratory Pattern Normal Blood Pressure Blood Pressure Mean Blood Pressure Source Blood Pressure Position Blood Pressure Location Pulse Ox Oxygen Delivery Method Room Air MDM MDM MDM Narrative Medical decision making narrative: Patient evaluated for cramps, worsening left lower quadrant abdominal pain. He is initially quite tachycardic on arrival but does improve with IV fluids in theemergency room. He has significant pain in his left lower quadrant. Differential includes abdominal wall trauma, rhabdomyolysis, renal colic, diverticulitis, pyelonephritis. He has a leukocytosis white blood cell count of 17.8. CMP shows a mild elevation of his creatinine 1.22 but this appears to be near his baseline. CPK is normal. Urinalysis is not excess with infection. CT the abdomen pelvis shows acute sigmoid colonic diverticulitis with perforation surrounding inflammation and fluid. No abscess appreciated. Case discussed with general surgery, Dr. Bruno, who recommends IV Rocephin and Flagyl. Will admit to his service. Patient is agreeable with this plan of care. Patient is she was given Tylenol in the emergency room but then is given further pain medication while in the emergency room Lab Data Attestation: I reviewed the patient's lab results. Labs: Laboratory Results - last 24 hr 01/21/25 19:10 WBC 17.8 H RBC 4.82 Hgb 14.5 Hct 42.2 MCV 87.6 MCH 30.1 MCHC 34.4 RDW Std Deviation 39.0 RDW Coeff of Thomas 12.1 Plt Count 193 MPV 10.6 Immature Gran % (Auto) 0.700 Neut % (Auto) 80.6 H Lymph % (Auto) 9.1 L Pitt % (Auto) 9.0 Eos % (Auto) 0.3 Baso % (Auto) 0.3 Absolute Neuts (auto) 14.4 H Absolute Lymphs (auto) 1.62 Nucleated RBC % 0 Platelet Estimate ADEQUATE Sodium 133 Potassium 4.1 Chloride 97 L Carbon Dioxide 24.9 Anion Gap 11 BUN 10 Creatinine 1.22 H Estim Creat Clear Calc 83.71 Est GFR (MDRD) Non-Af 79 BUN/Creatinine Ratio 7.9 L Glucose 104 H Calcium 9.2 Magnesium 2.2 Total Bilirubin 1.40 H AST 13 ALT 13 Alkaline Phosphatase 79 Total Creatine Kinase 82 Total Protein 7.1 Albumin 3.8 Globulin 3.3 Albumin/Globulin Ratio 1.2 Urine Color Yellow Urine Clarity Cloudy Urine pH 6.0 Ur Specific [place] 1.020 Urine Protein 30 H Urine Glucose (UA) Normal Urine Ketones 5 H Urine Occult Blood 10 H Urine Nitrite Negative Urine Bilirubin Negative Urine Urobilinogen 1 H Ur Leukocyte Esterase Negative Urine RBC 0-5 SEEN Urine WBC 0-5 SEEN Ur Squamous Epith Cells 0-5 SEEN Urine Bacteria 0 SEEN Urine Mucus 0 SEEN Radiography Diagnostic Testing: Clinical Impression(s) from Imaging Studies Abdomen/Pelvis CT 01/21/25 19:42 IMPRESSION: Acute sigmoid colon diverticulitis with perforation [...] EST on 01/21/2025. Reading Location: [facility] Rhythm Strip Rhythm Strip: Sinus Tach Rate: 119 Ectopy: None EKG Initial EKG: Attestation: I personally reviewed and interpreted this EKG as follows: Interpretation: Sinus Tachycardia Comments: Sinus tachycardia at a rate of 119 bpm Right axis deviation Normal intervals Normal ST segments Compared to prior EKG patient is not tachycardic Management Discussion w/another healthcare provider: Shift Mechanic Discharge Plan Dx/Rx/DC Orders Clinical Impression: Diverticulitis of colon with perforation, Tachycardia, Leukocytosis Disposition Disposition: Acute Care Hospital [facility] Discharge Date/Time: 01/21/25 22:46 What to do if you have Problems For any increased pain, shortness of breath, bleeding, nausea or vomiting, chestpain, or any unexpected problems, contact your Primary Care Provider. Call [facility] ([phone]) or report tothe closest Emergency Room. Call 911 if necessary. 01/22/25 1430 Cosigner Signature (if applicable): CC: MANAGER GOLF-C Shania Vieira ~ Signed [facility]06-26-2025 Progress note [facility] Medical Records Department [address] [place] [address] Progress Note 01/22/25 1424 MR#: [id number] Acct: [id number] Name: GABRIELA VIDAL Rep #:[id number] : 1990 34 From: Zechariah Bruno MD PCP: ELOISA Braden Status:ADM I N Location: [place] [address] Progress Note Patient seen and examined this afternoon. Patient stating his pain is improving. No fevers or chills this afternoon. Recommend continued IV antibiotics and n.p.o. Will continue to follow closely 01/22/25 1424 Zechariah Bruno MD Cosigner Signature (if applicable): CC: ~ Signed [facility]06-26-2025 History and physical note Author Zechariah Bruno [facility] Note Date/Time January 22, 2025 8:16 am [facility] Medical Records Department [address] [place] [address] History & Physical Exam 01/22/25 0810 MR#: [id number] Acct: [id number] Name: GABRIELA VIDAL Jr. Rep #:[id number] : 1990 34 From: Zechariah Bruno MD PCP: ELOISA Braden Status:ADM I N Location: [place] [address] HPI - General General Date of Admission: 01/21/25 Chief Complaint: Left lower quadrant abdominal pain/diverticulitis HPI Narrative GABRIELA VIDAL, is a 34 M who presented last evening to the emergency department with a several day history of left lower quadrant pain. He has a history of schizophrenia, chronic kidney disease, ADHD, and polysubstance abuse. Patient stated that he purchased a new e-bike recently and was riding quite a bit over the past several days. He initially thought his pain may have been musculoskeletal. 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 He states that this pain has been present over the last several days and has been mostly in the left lower quadrant. He does admit to some cramping. He denies fevers or chills. Due to the fact that this pain persisted, he presented to the emergency room. He was seen evaluate by the ER staff. He was found to have a white blood cell count of17,000. CT scan showed evidence of diverticulitis with microperforation and fairly extensive inflammatory reaction. Clinically he appeared nontoxic and stable and was subsequently admitted for antibiotic treatment. This morning he states that he is actually feeling a little bit better. His white blood cell count has gone down to 12,000. No overnight fevers or tachycardia PFSH Medical History ADHD Schizophrenia Mood disorder Anxiety and depression CKD (chronic kidney disease), stage II Polysubstance abuse Tobacco use Home Medications ?Medication ?Instructions ?Recorded ?Last Taken ?Type NK 01/21/25 Unknown History Allergy/AdvReac Type Severity Reaction Status Date / Time No Known Allergies Allergy Verified 01/21/25 16:10 Family History Mother Kidney disease Father Cancer Surgical History History of dental surgery History of tonsillectomy and adenoidectomy Social History household members: other details: Lives with his uncle. Smoking Status: Current every day smoker tobacco type: cigarettes alcohol intake: never substance use type: former substance user Date of last use: Fentanyl, Methamphetamines per prior records. Vital Signs Vital Signs Vital Signs: 01/21/25 16:05 01/21/25 18:05 01/21/25 20:00 Temperature 97.5 F L Temperature Source Temporal Pulse Rate 134 H 99 74 Respiratory Rate 18 18 18 Respiratory Effort Respiratory Depth Respiratory Pattern Blood Pressure 140/83 H 136/88 H 136/76 H Blood Pressure Mean 102 104 96 Blood Pressure Source Blood Pressure Position Blood Pressure Location Pulse Ox 98 95 99 Oxygen Delivery Method Room Air Room Air 01/21/25 21:53 01/21/25 21:53 01/21/25 23:03 Temperature 100 F H 100 F H 98.1 F Temperature Source Oral Temporal Pulse Rate 118 H 118 H 112 H Respiratory Rate 18 18 16 Respiratory Effort Respiratory Depth Respiratory Pattern Blood Pressure 130/83 H 130/83 H 111/70 Blood Pressure Mean 98 98 83 Blood Pressure Source Monitor Blood Pressure Position Semi-Fowlers Blood Pressure Location Left Forearm Pulse Ox 100 100 100 Oxygen Delivery Method Room Air Room Air 01/21/25 23:19 01/22/25 05:15 Temperature 98 F Temperature Source Temporal Pulse Rate 81 Respiratory Rate 16 Respiratory Effort Normal Non-Labored Respiratory Depth Normal Respiratory Pattern Normal Blood Pressure 134/82 H Blood Pressure Mean 99 Blood Pressure Source Monitor Blood Pressure Position Semi-Fowlers Blood Pressure Location Right Arm Pulse Ox 100 Oxygen Delivery Method Room Air Room Air Weight Weight: 182 lb 12.211 oz Body Mass Index (BMI) 26.2 Physical Exam Narrative He is alert and oriented x 3. He is in no acute distress. Head is normocephalic and atraumatic. Pupils are equal round and reactive to light. Abdomen is soft. Mild distention. He does have moderate tenderness to palpation in the left lower quadrant. No rebound or guarding Results Lab / Micro Data 01/22/25 07:35 01/21/25 19:10 Labs: Laboratory Results - last 24 hr 01/21/25 19:10: WBC 17.8 H, RBC 4.82, Hgb 14.5, Hct 42.2, MCV 87.6, MCH 30.1, MCHC 34.4, RDW Std Deviation 39.0, RDW Coeff of Thomas 12.1, Plt Count 193, MPV 10.6, Immature Gran % (Auto) 0.700, Neut % (Auto) 80.6 H, Lymph % (Auto) 9.1 L, Pitt % (Auto) 9.0, Eos % (Auto) 0.3, Baso % (Auto) 0.3, Absolute Neuts (auto) 14.4 H, Absolute Lymphs (auto) 1.62, Nucleated RBC % 0, Platelet Estimate ADEQUATE, Sodium 133, Potassium 4.1, Chloride 97 L, Carbon Dioxide 24.9, Anion Gap 11, BUN 10, Creatinine 1.22 H, Estim Creat Clear Calc 83.71, Est GFR (MDRD) Non-Af 79, BUN/Creatinine Ratio 7.9 L, Glucose 104 H, Calcium 9.2, Magnesium 2.2, Total Bilirubin 1.40 H, AST 13, ALT 13, Alkaline Phosphatase 79, Total Creatine Kinase 82, Total Protein 7.1, Albumin 3.8, Globulin 3.3, Albumin/Globulin Ratio 1.2, Urine Color Yellow, Urine Clarity Cloudy, Urine pH 6.0, Ur Specific [place] 1.020, Urine Protein 30 H, Urine Glucose (UA) Normal, Urine Ketones 5 H, Urine Occult Blood 10 H, Urine Nitrite Negative, Urine Bilirubin Negative, Urine Urobilinogen 1 H, Ur Leukocyte Esterase Negative, Urine RBC 0-5 SEEN, Urine WBC 0-5 SEEN, Ur Squamous Epith Cells 0-5 SEEN, Urine Bacteria 0 SEEN, Urine Mucus 0 SEEN 01/22/25 07:35: WBC 12.7 H, RBC 4.45 L, Hgb 13.2, Hct 38.8 L, MCV 87.2, MCH 29.7, MCHC 34.0, RDW Std Deviation 39.1, RDW Coeff of Thomas 12.1, Plt Count 185, MPV 10.6, Immature Gran % (Auto) 0.600, Neut % (Auto) 77.9 H, Lymph % (Auto) 9.7L, Pitt % (Auto) 10.2 H, Eos % (Auto) 1.4, Baso % (Auto) 0.2, Absolute Neuts (auto) 9.9 H, Absolute Lymphs (auto) 1.23, Nucleated RBC % 0 Rhythm Strip Rhythm Strip: Sinus Tach Rate: 119 Ectopy: None Imaging Radiology Impression Abdomen/Pelvis CT 01/21/25 19:42 IMPRESSION: Acute sigmoid colon diverticulitis with perforation [...] EST on 01/21/2025. Reading Location: [facility] Assessment & Plan Assessment/Plan (1) Diverticulitis of colon with perforation: PLAN: Plan The patient is a 34-year-old male with sigmoid diverticulitis with microperforation. Clinically he seems to be stable and does not require emergent intervention. I am recommending keeping him n.p.o. He has been placedon IV Rocephin and Flagyl. We did discuss the possibility that his diverticulitis may not improve with antibiotic therapy and surgery might be a possibility. If surgery was performed, this would likely result in a colostomy. He understands this. At the present time he is stable and I feel that initial antibiotic therapy is appropriate. Will continue to watch closely. Patient is agreeable to this plan. Charges/Coding Visit Charges Inpatient E&M: 01652 Init Hosp L3 01/22/25 0816 <Electronically signed by Zechariah Bruno MD> Cosigner Signature (if applicable): CC: ELOISA Vieira; Dr. Zechariah Bruno MD~ Signed [facility] Work Phone: 1(185) 529-705906-26-2025 History and physical note [facility] Medical Records Department [address] [place] [address] History & Physical Exam 01/22/25 0810 MR#: [id number] Acct: [id number] Name: GABRIELA VIDAL Jr. Rep #:[id number] : 1990 34 From: Zechariah Bruno MD PCP: ELOISA Braden Status:ADM I N Location: [place] [address] HPI - General General Date of Admission: 01/21/25 Chief Complaint: Left lower quadrant abdominal pain/diverticulitis HPI Narrative GABRIELA VIDAL, is a 34 M who presented last evening to the emergency department with a several day history of left lower quadrant pain. He has a history of schizophrenia, chronic kidney disease, ADHD,and polysubstance abuse. Patient stated that he purchased a new e-bike recently and was riding quite a bit over the past several days. He initially thought his pain may have been musculoskeletal. 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 He states that this pain has been present over the last several days and hasbeen mostly in the left lower quadrant. He does admit to some cramping. He denies fevers or chills.Due to the fact that this pain persisted, he presented to the emergency room. He was seen evaluate by the ER staff. He was found to have a white blood cell count of17,000. CT scan showed evidence of diverticulitis with microperforation and fairly extensive inflammatory reaction. Clinically he appeared nontoxic and stable and was subsequently admitted for antibiotic treatment. This morning he states that he is actually feeling a little bit better. His white blood cell count has gone down to 12,000. No overnight fevers or tachycardia PFSH Medical History ADHD Schizophrenia Mood disorder Anxiety and depression CKD (chronic kidney disease), stage II Polysubstance abuse Tobacco use Home Medications ?Medication ?Instructions ?Recorded ?Last Taken ?Type NK 01/21/25 Unknown History Allergy/AdvReac Type Severity Reaction Status Date / Time No Known Allergies Allergy Verified 01/21/25 16:10 Family History Mother Kidney disease Father Cancer Surgical History History of dental surgery History of tonsillectomy and adenoidectomy Social History household members: other details: Lives with his uncle. Smoking Status: Current every day smoker tobacco type: cigarettes alcohol intake: never substance use type: former substance user Date of last use: Fentanyl, Methamphetamines per prior records. Vital Signs Vital Signs Vital Signs: 01/21/25 16:05 01/21/25 18:05 01/21/25 20:00 Temperature 97.5 F L Temperature Source Temporal Pulse Rate 134 H 99 74 Respiratory Rate 18 18 18 Respiratory Effort Respiratory Depth Respiratory Pattern Blood Pressure 140/83 H 136/88 H 136/76 H Blood Pressure Mean 102 104 96 Blood Pressure Source Blood Pressure Position Blood Pressure Location Pulse Ox 98 95 99 Oxygen Delivery Method Room Air Room Air 01/21/25 21:53 01/21/25 21:53 01/21/25 23:03 Temperature 100 F H 100 F H 98.1 F Temperature Source Oral Temporal Pulse Rate 118 H 118 H 112 H Respiratory Rate 18 18 16 Respiratory Effort Respiratory Depth Respiratory Pattern Blood Pressure 130/83 H 130/83 H 111/70 Blood Pressure Mean 98 98 83 Blood Pressure Source Monitor Blood Pressure Position Semi-Fowlers Blood Pressure Location Left Forearm Pulse Ox 100 100 100 Oxygen Delivery Method Room Air Room Air 01/21/25 23:19 01/22/25 05:15 Temperature 98 F Temperature Source Temporal Pulse Rate 81 Respiratory Rate 16 Respiratory Effort Normal Non-Labored Respiratory Depth Normal Respiratory Pattern Normal Blood Pressure 134/82 H Blood Pressure Mean 99 Blood Pressure Source Monitor Blood Pressure Position Semi-Fowlers Blood Pressure Location Right Arm Pulse Ox 100 Oxygen Delivery Method Room Air Room Air Weight Weight: 182 lb 12.211 oz Body Mass Index (BMI) 26.2 Physical Exam Narrative He is alert and oriented x 3. He is in no acute distress. Head is normocephalic and atraumatic. Pupils are equal round and reactive to light. Abdomen is soft. Mild distention. He does have moderate tenderness to palpation in the left lower quadrant. No rebound or guarding Results Lab / Micro Data 01/22/25 07:35 01/21/25 19:10 Labs: Laboratory Results - last 24 hr 01/21/25 19:10: WBC 17.8 H, RBC 4.82, Hgb 14.5, Hct 42.2, MCV 87.6, MCH 30.1, MCHC 34.4, RDW Std Deviation 39.0, RDW Coeff of Thomas 12.1, Plt Count 193, MPV 10.6, Immature Gran % (Auto) 0.700, Neut % (Auto) 80.6 H, Lymph % (Auto) 9.1 L, Pitt % (Auto) 9.0, Eos % (Auto) 0.3, Baso % (Auto) 0.3, AbsoluteNeuts (auto) 14.4 H, Absolute Lymphs (auto) 1.62, Nucleated RBC % 0, Platelet Estimate ADEQUATE, Sodium 133, Potassium 4.1, Chloride 97 L, Carbon Dioxide 24.9, Anion Gap 11, BUN 10, Creatinine 1.22 H, Estim Creat Clear Calc 83.71, Est GFR (MDRD) Non-Af 79, BUN/Creatinine Ratio 7.9 L, Glucose 104 H,Calcium 9.2, Magnesium 2.2, Total Bilirubin 1.40 H, AST 13, ALT 13, Alkaline Phosphatase 79, Total Creatine Kinase 82, Total Protein 7.1, Albumin 3.8, Globulin 3.3, Albumin/Globulin Ratio 1.2, Urine Color Yellow, Urine Clarity Cloudy, Urine pH 6.0, Ur Specific [place] 1.020, Urine Protein 30 H, Urine Glucose (UA) Normal, Urine Ketones 5 H, Urine Occult Blood 10 H, Urine Nitrite Negative, Urine Bilirubin Negative, Urine Urobilinogen 1 H, Ur Leukocyte Esterase Negative, Urine RBC 0-5 SEEN, Urine WBC 0-5 SEEN, Ur Squamous Epith Cells 0-5 SEEN, Urine Bacteria 0 SEEN, Urine Mucus 0 SEEN 01/22/25 07:35: WBC 12.7 H, RBC 4.45 L, Hgb 13.2, Hct 38.8 L, MCV 87.2, MCH 29.7, MCHC 34.0, RDW Std Deviation 39.1, RDW Coeff of Thomas 12.1, Plt Count 185, MPV 10.6, Immature Gran % (Auto) 0.600, Neut% (Auto) 77.9 H, Lymph % (Auto) 9.7L, Pitt % (Auto) 10.2 H, Eos % (Auto) 1.4, Baso % (Auto) 0.2, Absolute Neuts (auto) 9.9 H, Absolute Lymphs (auto) 1.23, Nucleated RBC % 0 Rhythm Strip Rhythm Strip: Sinus Tach Rate: 119 Ectopy: None Imaging Radiology Impression Abdomen/Pelvis CT 01/21/25 19:42 IMPRESSION: Acute sigmoid colon diverticulitis with perforation [...] EST on 01/21/2025. Reading Location: [facility] Assessment & Plan Assessment/Plan (1) Diverticulitis of colon with perforation: PLAN: Plan The patient is a 34-year-old male with sigmoid diverticulitis with microperforation. Clinically he seems to be stable and does not require emergent intervention. I am recommending keeping him n.p.o. He has been placedon IV Rocephin and Flagyl. We did discuss the possibility that his diverticulitis may not improve with antibiotic therapy and surgery might be a possibility. If surgery was performed, this would likely result in a colostomy. He understands this. At the present time he is stable Vishal feel that initial antibiotic therapy is appropriate. Will continue to watch closely. Patient is agreeable to this plan. Charges/Coding Visit Charges Inpatient E&M: 10057 Init Hosp L3 01/22/25 0816 Cosigner Signature (if applicable): CC: ELOISA Vieira; Dr. Zechariah Bruno MD~ Signed [facility]06-26-2025 [facility] Medical Records Department [address] [place] [address] History Physical Exam 01/22/25 0810 MR#: [id number] Acct: [id number] Name: GABRIELA VIDAL Jr. Rep #: [id number] : 1990 34 From: Zechariah Bruno MD PCP: ELOISA Braden Status:ADM IN Location: [place] [id number] HPI - General General Date of Admission: 01/21/25 Chief Complaint: Left lower quadrant abdominal pain/diverticulitis HPI Narrative GABRIELA VIDAL, is a 34 M who presented last evening to the emergency department with a several day history of left lower quadrant pain. He has a history of schizophrenia, chronic kidney disease, ADHD, and polysubstance abuse. Patient stated that he purchased a new e-bike recently and was riding quite a bit over the past several days. He initially thought his pain may have been musculoskeletal. 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 He states that this pain has been present over the last several days and has been mostly in the left lower quadrant. He does admit to some cramping. He denies fevers or chills. Due to the fact that this pain persisted, he presented to the emergency room. He was seen evaluate by the ER staff. He was found to have a white blood cell count of 17,000. CT scan showed evidence of diverticulitis with microperforation and fairly extensive inflammatory reaction. Clinically he appeared nontoxic and stable and was subsequently admitted for antibiotic treatment. This morning he states that he is actually feeling a little bit better. His white blood cell count has gone down to 12,000. No overnight fevers or tachycardia PFSH Medical History ADHD Schizophrenia Mood disorder Anxiety and depression CKD (chronic kidney disease), stage II Polysubstance abuse Tobacco use Home Medications ???Medication ???Instructions ???Recorded ???Last Taken ???Type NK 01/21/25 Unknown History Allergy/AdvReac Type Severity Reaction Status Date / Time No Known Allergies Allergy Verified 01/21/25 16:10 Family History Mother Kidney disease Father Cancer Surgical History History of dental surgery History of tonsillectomy and adenoidectomy Social History household members: other details: Lives with his uncle. Smoking Status: Current every day smoker tobacco type: cigarettes alcohol intake: never substance use type: former substance user Date of last use: Fentanyl, Methamphetamines per prior records. Vital Signs Vital Signs Vital Signs: 01/21/25 16:05 01/21/25 18:05 01/21/25 20:00 Temperature 97.5 F L Temperature Source Temporal Pulse Rate 134 H 99 74 Respiratory Rate 18 18 18 Respiratory Effort Respiratory Depth Respiratory Pattern Blood Pressure 140/83 H 136/88 H 136/76 H Blood Pressure Mean 102 104 96 Blood Pressure Source Blood Pressure Position Blood Pressure Location Pulse Ox 98 95 99 Oxygen Delivery Method Room Air Room Air 01/21/25 21:53 01/21/25 21:53 01/21/25 23:03 Temperature 100 F H 100 F H 98.1 F Temperature Source Oral Temporal Pulse Rate 118 H 118 H 112 H Respiratory Rate 18 18 16 Respiratory Effort Respiratory Depth Respiratory Pattern Blood Pressure 130/83 H 130/83 H 111/70 Blood Pressure Mean 98 98 83 Blood Pressure Source Monitor Blood Pressure Position Semi-Fowlers Blood Pressure Location Left Forearm Pulse Ox 100 100 100 Oxygen Delivery Method Room Air Room Air 01/21/25 23:19 01/22/25 05:15 Temperature 98 F Temperature Source Temporal Pulse Rate 81 Respiratory Rate 16 Respiratory Effort Normal Non-Labored Respiratory Depth Normal Respiratory Pattern Normal Blood Pressure 134/82 H Blood Pressure Mean 99 Blood Pressure Source Monitor Blood Pressure Position Semi-Fowlers Blood Pressure Location Right Arm Pulse Ox 100 Oxygen Delivery Method Room Air Room Air Weight Weight: 182 lb 12.211 oz Body Mass Index (BMI) 26.2 Physical Exam Narrative He is alert and oriented x 3. He is in no acute distress. Head is normocephalic and atraumatic. Pupils are equal round and reactive to light. Abdomen is soft. Mild distention. He does have moderate tenderness to palpation in the left lower quadrant. No rebound or guarding Results Lab / Micro Data 01/22/25 07:35 01/21/25 19:10 Labs: Laboratory Results - last 24 hr 01/21/25 19:10: WBC 17.8 H, RBC 4.82, Hgb 14.5, Hct 42.2, MCV 87.6, MCH 30.1, MCHC 34.4, RDW Std Deviation 39.0, RDW Coeff of Thomas 12.1, Plt Count 193, MPV 10.6, Immature Gran % (Auto) 0.700, Neut % (Auto) 80.6 H, Lymph % (Auto) 9.1 L, Pitt % (Auto) 9.0, Eos % ( (more content not included)...[facility]06-25-2025 Evaluation note* Diagnosis Onset Date Resolution Status Admit Date Diverticulitis of colon with perforation acute January 21, 2025 9:42pm [facility] Work Phone: 1(119) 560-768906-25-2025 Radiology Diagnostic study note [facility] [address] [place], [place] [address] Abdomen/Pelvis W IV Cont ONLY MR#: [id number] Acct: [id number] Name: GABRIELA VIDAL Jr. Rep #: [id number] : 1990 M 34 From: Shara Damico MD PCP: KERRY BradenC Status: REG E R Study:Abdomen/Pelvis W IV Cont ONLY Date of E xam: 01/21/25 Exam# [id number] Ordering Dr: Lisa Quinn DO PROCEDURE: ABDOMEN/PELVIS [...] adrenal glands demonstrate no acute findings. Hepatomegaly to21 cm. The gallbladder is unremarkable. The stomach [...] EST on 01/21/2025. Reading Location: [facility] CC: ELOISA Vieira; Dr. Shiela Quinn, DO ~ Substitute Nurse: Signed [facility]06-17-2025 NoteHNO ID: [id number] Author: ESTEPHANIA LEMOS LPN Service: ? Author Type: LICENSED NURSE Type: Progress Notes Filed: 01/13/2025 09:29 Note Text: ED Follow-Up Note Provider Action / FYI: Call completed by: AUGUSTO Patient seen in ED: Out of Network ED Contact made with Patient: No, unable to leave message. No longer working number. Estephania Lemos LPN January 13, 2025 9:29 [facility]06-16-2025 NoteHNO ID: [id number] Author: ESTEPHANIA LEMOS LPN Service: ? Author Type: LICENSED NURSE Type: Progress Notes Filed: 01/12/2025 14:18 Note Text: ED Follow-Up Note Provider Action / FYI: Call completed by: AUGUSTO Patient seen in ED: Out of Network ED Contact made with Patient: No, unable to leave message. Phone number is no longer in service. Estephania Lemos LPN January 12, 2025 2:18 [facility]06-16-2025 History of Present illness Narrative* Estephania Lemos LPN - 01/12/2025 2:17 PM EDT ED Follow-Up Note Provider Action / FYI: Call completed by: AUGUSTO Patient seen in ED: Out of Network ED Contact made with Patient: No, unable to leave message. Phone number is no longer in service. Estephania Lemos LPN January 12, 2025 2:18 PM [facility] NotePatient Outreach (AGFAMPLE) GABRIELA VIDAL JR. ([id number]) 1990 M Date Time Provider Department 01/12/25 [...] Date Reviewed: 01/15/2024 Reviewed by: Shania Vieira APRN.BUSINESS DEVELOPMENT ENGINEER - Fully Assessed Reason for Visit: ED Follow-up [821] Cmt: [facility] 01/07/2025 Prescriptions as of 01/13/2025 - [...] 01/15/2024 Encounter Status:Closed by ESTEPHANIA LEMOS on 01/12/25[facility] 01-07-2025 Discharge summary [facility] Medical Records Department [address] [place] [address] Emergency Department Summary 01/07/25 MR#: [id number] Acct: [id number] Name: GABRIELA VIDAL Jr. Rep #:[id number] : 1990 34 From: Stephan Burk MD PCP: Shania Vieira NP-C Status:REG E R Location: ED HPI History [...] laceration on the medial aspect of his rightPIP. There is no bleeding. It does not [...] for 10 days. Motrin and Tylenol and follow-up. First dose antibiotic will be given here. [...] Provider: Shania Vieira NP Referrals: Shania Vieira MANAGER GOLF, MANAGER GOLF-C [Primary Care Provider] - 3-5 Days if not improving Activity Restrictions/Additional Instructions: Take the antibiotic Augmentin 1 pill twice a day till gone. Motrin for pain and swelling and Tylenol for pain. Ice and elevate. Follow-up or return if getting worse. Are not improving. Print Language: Polish Disposition Disposition: Home, Self Care What to do if you have Problems For any increased pain, shortness of breath, bleeding, nausea or vomiting, chestpain, or any unexpected problems, contact your Primary Care Provider. Call [facility] ([phone]) or report tothe closest Emergency Room. Call 911 if necessary. 01/07/25 0945 Cosigner Signature (if applicable): CC: MANAGER GOLF-C Shania Vieira ~ Signed [facility]09-23-2024 NoteHNO ID: [id number] Author: ESTEPHANIA LEMOS LPN Service: ? Author Type: LICENSED NURSE Type: Progress Notes Filed: 04/23/2024 07:40 Note Text: TRANSITIONAL CARE MANAGEMENT (TCM) COMMUNITY MONITORING PROGRAM - [place]IRENE Provider Action/FYI: SUMMARY: Pt discharged from [facility] on 04/19/2024. Admitted for: ISABELLA, COVID-19 Patient seen Inpatient NURY Visit? No. Patient seen ICARE Program? No. Contact made with patient: No - next outreach attempt will be on next business day No Contact made. Outreach [facility]09-23-2024 History of Present illness Narrative* Estephania Lemos LPN - 04/21/2024 4:51 PM EDT TRANSITIONAL CARE MANAGEMENT (TCM) COMMUNITY MONITORING PROGRAM - [place] Provider Action/FYI: SUMMARY: Pt discharged from [facility] on 04/19/2024. Admitted for: ISABELLA, COVID-19 Patient seen Inpatient NURY Visit? No. Patient seen ICARE Program? No. Contact made with patient: No - next outreach attempt will be on next business day No Contact made. Outreach ended [facility] NotePatient Outreach (AGINTMLW) GABRIELA VIDAL JR. ([id number]) 1990 M Date Time Provider Department 04/21/24 ESTEPHANIA LEMOS During your visit today, we recorded the following information about you: Estephania Lemos LPN 04/23/2024 7:40 AM Signed TRANSITIONAL CARE MANAGEMENT (TCM) COMMUNITY MONITORING PROGRAM - JUDD Provider Action/FYI: SUMMARY: Pt discharged from [facility] on 04/19/2024. Admitted for: ISABELLA, COVID-19 Patient seen Inpatient NURY Visit? No. Patient seen ICARE Program? No. Contact made with patient: No - next outreach attempt will be on next business day No Contact made. Outreach ended Allergies As of Date: 04/21/2024 (No Known Allergies) Date Reviewed: 01/15/2024 Reviewed by: Shania Vieira APRN.BUSINESS DEVELOPMENT ENGINEER - Fully Assessed Reason for Visit: Transition Of Care [4074] Cmt: Pt was admitted to [facility] on 04/18/2024 for ISABELLA, COVID-19. Pt was [...] 01/15/2024 Encounter Status:Closed by ESTEPHANIA LEMOS on 04/23/24[facility] 04-19-2024 [facility] Medical Records Department [address] [place] [address] [id number] Discharge Summary 04/19/24 1215 MR#: [id number] Acct: [id number] Name: GABRIELA VIDAL Jr. 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 Referral was give for Dr De Santiago. Please enter referral to patient chart. Thanks documented in [facility]07[facility] Telephone encounter Note * Telephone Encounter - Gracy Doss - 01/28/2024 11:39 AM EDT Patient came to office because he is still in pain. Referral was give for Dr De Santiago. Please enter referral to patient chart. Thanks [facility]06-18-2024 History of Present illness Narrative* Shania Vieira APRN.CNP - 01/15/2024 2:40 PM EDT Images from the original note were not included. [facility] Shania Vieira APRN-BUSINESS DEVELOPMENT ENGINEER [address] [place] [address] Dept Dept. Visit Date: January 15, 2024 Mr.Robert Larry Vidal Jr. Date of : 1990 MRN/E #: [id number] Chief Complaint: Patient presents with: Establish Care [...] disturbance. Negative for behavioral problems, confusion, self-injury andsuicidal ideas. The patient is nervous/anxious. The patient [...] TABLET - CONSULT TO SOCIAL WORK AG (CORNICE MAKER) 2. Adult ADHD - ICD9: 314.01, ICD10: F90.9 - Under the care of psychiatry. Currently on Intunviv 3. Auditory hallucinations - ICD9: 780.1, ICD10: R44.0 4. Acute psychosis (HCC) - ICD9: 298.9, ICD10: F23 5. Marijuana use - ICD9: 305.20, ICD10: F12.90 6. Financial difficulties - ICD9: V60.2, ICD10: Z59.9 - CONSULT TO SOCIAL WORK AG (CORNICE MAKER) 7. Acute pain of left shoulder - ICD9: 719.41, ICD10: M25.512 - IBUPROFEN 600 MG TABLET 8. Living in temporary quarters - ICD9: V60.89, ICD10: Z59.89 - CONSULT TO SOCIAL WORK AG (CORNICE MAKER) Discussed above plan with patient and/or caregiver. Patient and/or caregiver agreeable with above plan. Follow up visit Return in about 2 months (around 03/16/2024). Shania Vieira APRN.CNP, signed on January 15, 2024 2:40 PM documented in this encounterS[facility]05-[facility] Telephone encounter Note * Telephone Encounter - Shania Vieira APRN.CNP - 12/21/2023 3:06 PM EDT Noted. Thank you. [facility] Work Phone: [phone] Miscellaneous Notes* Telephone Encounter - Shania Vieira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 gonorrhea and jazmine. Feels tight clamminess per. Pt. And itches. X 1 month Reason Comments Results Reason Onset Date Comments ED outreach 04/11/2023 ED outreach [facility] 04/07/2023 Reason Comments Rash Bilateral legs x 1 w eeks. Hurts Leg Pain X 1 week. Bilateral Reason Onset Date Comments ED Outreach 07/03/2023 [facility] 07/01/23 Reason Onset Date Comments ed outreach 10/02/2023 Ed outreach [id number] Reason Comments Appointment Reason Comments Establish Care Reason Comments Consult Reason Comments Radio Gen RMP Specialty Diagnoses / Procedures Referred By Contac t Referred To Contact XR IMAGING Diagnoses Pain Procedures XR SHOULDER GENERAL 3V OR MORE AP/TRUE AP/OTHER LEFT RADEX SHOULDER COMPLETE MINIMUM 2 VIEWS Humera Harper, FITNESS DIRECTOR.BUSINESS DEVELOPMENT ENGINEER [address] [id number] Xr Imaging [id number] Referral ID Status Reason Start Date Expiration Date V isits Requested Visits Authorized [id number] Closed Auto-Generate d Referral 01/18/2023 02/17/2024 1 1 Reason Onset Date Comments Transition Of Care 04/21/2024 Pt was admitt ed to [facility] on 04/18/2024 for ISABELLA, COVID-19. Pt was d/c on 04/19/2024 Reason Onset Date Comments ED Follow-up 01/07/2025 [facility] 2024 Reason Onset Date Comments Transition Of Care 12/21/2024 [facility] 01/21- 01/26/2025 Reason Comments Internal Referrals/resources GI vs Gener al Surgery Reason Comments Consult Diverticulitis ER f/ u Specialty Diagnoses / Procedures Referred By Contac t Referred To Contact General Surgery / [facility] DEPARTMENT Diagnoses Diverticulitis of large intestine with perforation without bleeding Procedures CONSULT TO GENERAL SURGERY OFFICE/OUTPATIENT [facility] MDM 60 MINUTES Shania Vieira, FITNESS DIRECTOR.BUSINESS DEVELOPMENT ENGINEER [address] [place] [address] Phone: tel: fax: Suzi Pappas MD [address] [place] [address] Phone: tel: fax: Referral ID Status Reason Start Date Expiration Date V isits Requested Visits Authorized [id number] Closed PCP Requested Referral 02/16/2025 02/16/2026 1 1 Source Comments (unrecognize d section and content) In the event this informatio n is protected by the Federal Confidentiality of Alcohol and Drug Abuse Patient Records regulations: The Federal rules restrict any use of the information to criminally investigate or prosecute any alcohol or drug abuse patient.[facility] the event this information is protected by the Federal Confidentiality of Alcohol and Drug Abuse Patient Records regulations: The Federal rules restrict any use of the information to criminally investigate or prosecute any alcohol or drug abuse patient.[facility] the event this information is protected by the Federal Confidentiality of Alcohol and Drug Abuse Patient Records regulations: The Federal rules restrict any use of the information to criminally investigate or prosecute any alcohol or drug abuse patient.[facility] the event this information is protected by the Federal Confidentiality of Alcohol and Drug Abuse Patient Records regulations: The Federal rules restrict any use of the information to criminally investigate or prosecute any alcohol or drug abuse patient.[facility] the event this information is protected by the Federal Confidentiality of Alcohol and Drug Abuse Patient Records regulations: The Federal rules restrict any use of the information to criminally investigate or prosecute any alcohol or drug abuse patient.[facility] Hospital[facility] the event this information is protected by the Federal Confidentiality of Alcohol and Drug Abuse Patient Records regulations: The Federal rules restrict any use of the information to criminally investigate or prosecute any alcohol or drug abuse patient.[facility] Hospital[facility] the event this information is protected by the Federal Confidentiality of Alcohol and Drug Abuse Patient Records regulations: The Federal rules restrict any use of the information to criminally investigate or prosecute any alcohol or drug abuse patient.[facility] the event this information is protected by the Federal Confidentiality of Alcohol and Drug Abuse Patient Records regulations: The Federal rules restrict any use of the information to criminally investigate or prosecute any alcohol or drug abuse patient.[facility] Hospital[facility] the event this information is protected by the Federal Confidentiality of Alcohol and Drug Abuse Patient Records regulations: The Federal rules restrict any use of the information to criminally investigate or prosecute any alcohol or drug abuse patient.[facility] Hospital[facility] the event this information is protected by the Federal Confidentiality of Alcohol and Drug Abuse Patient Records regulations: The Federal rules restrict any use of the information to criminally investigate or prosecute any alcohol or drug abuse patient.[facility] the event this information is protected by the Federal Confidentiality of Alcohol and Drug Abuse Patient Records regulations: The Federal rules restrict any use of the information to criminally investigate or prosecute any alcohol or drug abuse patient.[facility] Hospital[facility] the event this information is protected by the Federal Confidentiality of Alcohol and Drug Abuse Patient Records regulations: The Federal rules restrict any use of the information to criminally investigate or prosecute any alcohol or drug abuse patient.[facility] the event this information is protected by the Federal Confidentiality of Alcohol and Drug Abuse Patient Records regulations: The Federal rules restrict any use of the information to criminally investigate or prosecute any alcohol or drug abuse patient.[facility] Hospital[facility] the event this information is protected by the Federal Confidentiality of Alcohol and Drug Abuse Patient Records regulations: The Federal rules restrict any use of the information to criminally investigate or prosecute any alcohol or drug abuse patient.[facility] Hospital[facility] the event this information is protected by the Federal Confidentiality of Alcohol and Drug Abuse Patient Records regulations: The Federal rules restrict any use of the information to criminally investigate or prosecute any alcohol or drug abuse patient.[facility] Hospital[facility] the event this information is protected by the Federal Confidentiality of Alcohol and Drug Abuse Patient Records regulations: The Federal rules restrict any use of the information to criminally investigate or prosecute any alcohol or drug abuse patient.[facility] Hospital[facility] the event this information is protected by the Federal Confidentiality of Alcohol and Drug Abuse Patient Records regulations: The Federal rules restrict any use of the information to criminally investigate or prosecute any alcohol or drug abuse patient.[facility] Hospital[facility] the event this information is protected by the Federal Confidentiality of Alcohol and Drug Abuse Patient Records regulations: The Federal rules restrict any use of the information to criminally investigate or prosecute any alcohol or drug abuse patient.[facility] Hospital[facility] the event this information is protected by the Federal Confidentiality of Alcohol and Drug Abuse Patient Records regulations: The Federal rules restrict any use of the information to criminally investigate or prosecute any alcohol or drug abuse patient.[facility] HospitalIn the event this information is protected by the Federal Confidentiality of Alcohol and Drug Abuse Patient Records regulations: The Federal rules restrict any use of the information to criminally investigate or prosecute any alcohol or drug abuse patient.[facility] HospitalIn the event this information is protected by the Federal Confidentiality of Alcohol and Drug Abuse Patient Records regulations: The Federal rules restrict any use of the information to criminally investigate or prosecute any alcohol or drug abuse patient.[facility] Care Teams (unrecognized sec tion and content) Machine Tool Dresser Relationship Specialty Start Date End Date Shania Vieira APRN.BUSINESS DEVELOPMENT ENGINEER [address] [place] [address] PCP - General Family Practice 05/17/20 Machine Tool Dresser Relationship Specialty Start Date End Date Shania Vieira FITNESS DIRECTOR.BUSINESS DEVELOPMENT ENGINEER [address], [place] [id number] PCP - General Family Medicine 05/17/20 Machine Tool Dresser Relationship Specialty Start Date End Date Shania Vieira, FITNESS DIRECTOR.BUSINESS DEVELOPMENT ENGINEER [address] [place] [address] PCP - General Family Medicine 05/17/20 Machine Tool Dresser Relationship Specialty Start Date End Date Shania Vieira A, FITNESS DIRECTOR.BUSINESS DEVELOPMENT ENGINEER [address] [facility] [place] [address] PCP - General Family Medicine 05/17/20 Machine Tool Dresser Relationship Specialty Start Date End Date Jen Vieirany A, FITNESS DIRECTOR.BUSINESS DEVELOPMENT ENGINEER [address] [facility] [place] [place] [address] PCP - General Family Medicine 05/17/20 Machine Tool Dresser Relationship Specialty Start Date End Date Shania Vieira A, FITNESS DIRECTOR.BUSINESS DEVELOPMENT ENGINEER [address] [place] [address] PCP - General Family Medicine 05/17/20 Machine Tool Dresser Relationship Specialty Start Date End Date Shania Vieira A, FITNESS DIRECTOR.BUSINESS DEVELOPMENT ENGINEER [address] [facility] [place] [address] PCP - General Family Medicine 05/17/20 Machine Tool Dresser Relationship Specialty Start Date End Date Shania Vieira A, FITNESS DIRECTOR.BUSINESS DEVELOPMENT ENGINEER [address] [place] [address] PCP - General Family Medicine 05/17/20 Machine Tool Dresser Relationship Specialty Start Date End Date Shania Vieira A, FITNESS DIRECTOR.BUSINESS DEVELOPMENT ENGINEER [address] [place] [address] PCP - General Family Medicine 05/17/20 Team Status: Active Member Role Status Dates No Primary Care Physician Primary Care Provider Active Team Status: Inactive Member Role Status Dates Dr. Jose E Meier , DO Emergency Provider Active No Primary Care Physician Primary Care Provider Active Machine Tool Dresser Relationship Specialty Start Date End Date Shania Vieira A, FITNESS DIRECTOR.BUSINESS DEVELOPMENT ENGINEER [address] [place] [address] PCP - General Family Medicine 01/15/24 Machine Tool Dresser Relationship Specialty Start Date End Date Shania Vieira, FITNESS DIRECTOR.BUSINESS DEVELOPMENT ENGINEER [address] [facility], [place] [id number] PCP - General Family Medicine 01/15/24 Machine Tool Dresser Relationship Specialty Start Date End Date Shania Vieira, FITNESS DIRECTOR.BUSINESS DEVELOPMENT ENGINEER [address] [facility], [place] [id number] PCP - General Family Medicine 05/17/20 12/16/23 Machine Tool Dresser Relationship Specialty Start Date End Date Shania Vieira FITNESS DIRECTOR.BUSINESS DEVELOPMENT ENGINEER [address] [facility], [place] [id number] PCP - General Family Medicine 01/15/24 Team Status: Active Member Role Status Dates Shania Vieira MANAGER GOLF, MANAGER GOLF-C Primary Care Provider Active Team Status: Inactive Member Role Status Dates Shania Vieira MANAGER GOLF, MANAGER GOLF-C Primary Care Provider Active Start: January 07, 2025 End: January 07, 2025 Dr. Stephan Burk MD Emergency Provider Active S tart: January 07, 2025 End: January 07, 2025 Machine Tool Dresser Relationship Specialty Start Date End Date Shania Vieira FITNESS DIRECTOR.BUSINESS DEVELOPMENT ENGINEER [address] [facility], [place] [id number] PCP - General Family Medicine 01/15/24 Team Status: Inactive Member Role Status Dates Shania Vieira MANAGER GOLF, MANAGER GOLF-C Primary Care Provider Active Start: January 07, 2025 End: January 07, 2025 Dr. Stephan Burk MD Attending Provider Active S tart: January 07, 2025 End: January 07, 2025 Dr. Stephan Burk MD Emergency Provider Active S tart: January 07, 2025 End: January 07, 2025 Team Status: Active Member Role Status Dates Shania Vieira MANAGER GOLF, MANAGER GOLF-C Primary Care Provider Active Start: January 21, 2025 Dr. Shiela Quinn DO Emergency Provider Active Start: January 21, 2025 Dr. Zechariah Bruno MD Admit Provider Active St art: January 21, 2025 Dr. Zechariah Bruno MD Attending Provider Active Start: January 21, 2025 Team Status: Active Member Role/Relationship Status Dates Shania Isha MANAGER GOLF, MANAGER GOLF-C Primary Care Provider Active Team Status: Inactive Member Role/Relationship Status Dates Shania Isha MANAGER GOLF, MANAGER GOLF-C Primary Care Provider Active Start: January 07, 2025 End: January 07, 2025 Dr. Stephan Burk MD Attending Provider Active S tart: January 07, 2025 End: January 07, 2025 Dr. Stephan Burk MD Emergency Provider Active S tart: January 07, 2025 End: January 07, 2025 Team Status: Inactive Member Role/Relationship Status Dates Shania Vieira MANAGER GOLF, MANAGER GOLF-C Primary Care Provider Active Start: January 21, 2025 End: January 26, 2025 Dr. Shiela Quinn DO Emergency Provider Active Start: January 21, 2025 End: January 26, 2025 Dr. Zechariah Bruno MD Admit Provider Active St art: January 21, 2025 End: January 26, 2025 Dr. Zechariah Bruno MD Attending Provider Active Start: January 21, 2025 End: January 26, 2025 Team Status: Active Member Role/Relationship Status Dates Shania Vieira MANAGER GOLF, MANAGER GOLF-C Primary Care Provider Active Start: January 22, 2025 Dr. Shiela Quinn DO Emergency Provider Active Start: January 22, 2025 Dr. Zechariah Bruno MD Admit Provider Active St art: January 22, 2025 Dr. Zechariah Bruno MD Attending Provider Active Start: January 22, 2025 Dr. Zechariah Bruno MD Other Provider Active St art: January 22, 2025 Team Status: Active Member Role/Relationship Status Dates Shania Vieira MANAGER GOLF, MANAGER GOLF-C Primary Care Provider Active Start: January 23, 2025 Dr. Shiela Quinn DO Emergency Provider Active Start: January 23, 2025 Dr. Zechariah Bruno MD Admit Provider Active St art: January 23, 2025 Dr. Zechariah Bruno MD Attending Provider Active Start: January 23, 2025 Dr. Zechariah Bruno MD Other Provider Active St art: January 23, 2025 Team Status: Active Member Role/Relationship Status Dates Shania Vieira MANAGER GOLF, MANAGER GOLF-C Primary Care Provider Active Start: January 24, 2025 Dr. Shiela Quinn DO Emergency Provider Active Start: January 24, 2025 Dr. Zechariah Bruno MD Admit Provider Active St art: January 24, 2025 Dr. Zechariah Bruno MD Attending Provider Active Start: January 24, 2025 Dr. Zechariah Bruno MD Other Provider Active St art: January 24, 2025 Team Status: Active Member Role/Relationship Status Dates Shania Vieira MANAGER GOLF, MANAGER GOLF-C Primary Care Provider Active Start: January 25, 2025 Dr. Shiela Quinn DO Emergency Provider Active Start: January 25, 2025 Dr. Zechariah Bruno MD Admit Provider Active St art: January 25, 2025 Dr. Zechariah Bruno MD Attending Provider Active Start: January 25, 2025 Dr. Zechariah Bruno MD Other Provider Active St art: January 25, 2025 Team Status: Active Member Role/Relationship Status Dates Shania Vieira MANAGER GOLF, MANAGER GOLF-C Primary Care Provider Active Start: January 26, 2025 Dr. Shiela Quinn DO Emergency Provider Active Start: January 26, 2025 Dr. Zechariah Bruno MD Admit Provider Active St art: January 26, 2025 Dr. Zechariah Bruno MD Other Provider Active St art: January 26, 2025 Anabel ADLER PA-C Attending Provider Active Start: January 26, 2025 Machine Tool Dresser Relationship Specialty Start Date End Date Shania Vieira APRN.BUSINESS DEVELOPMENT ENGINEER [address] [place] [address] PCP - General Family Medicine 01/15/24 Machine Tool Dresser Relationship Specialty Start Date End Date Shania Vieira APRN.BUSINESS DEVELOPMENT ENGINEER [address] [place] [address] (work) PCP - General Family Medicine 01/15/24 <item> [...] BE BASED ON THE PRIMARY CLINICAL RECORDS. [employer] provides no warranty or guarantee of the accuracy or completeness of information in this document.
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
[2025-06-26 22:23] LABS: RBC /Synovial Fluid 0.162 10^6/uL (0); Synovial Fld Mononuclear WBC # 0.360 10^3/ul; Synovial Fld Mononuclear WBC % 40.1 %; Synovial Fld Polynuclear WBC # 0.538 10^3/uL; Synovial Fld Polynuclear WBC % 59.9 %
[2025-06-26 22:32] LABS: AUTO B FLUID DILUENT BKGD CT WBC <0.1 RBC <0.01 (W<.1,R<.01); Source / Synovial Fluid LEFT KNEE; Source- Body Fluid SYNOVIAL
[2025-06-26 22:33] LABS: Appearance /Synovial Fluid Turbid (CLEAR); Color / Synovial Fluid Red (Pale Yellow)
[2025-06-26 23:45] LABS: Body Fluid QC Type(s) BF1Q
[2025-06-27 00:42] VITALS: BP 125/80; PULSE 88; RESP 16; O2SAT 98
[2025-06-27 02:23] LABS: Monocyte /Synovial Fluid 9 %
[2025-06-27 02:30] LABS: Other Cell /Synovial Fluid 5 %
[2025-06-27 03:04] VITALS: BP 122/74; PULSE 80; RESP 16; TEMP 36.7; O2SAT 98
[2025-06-30 08:21] LABS: CRYSTALS, BODY FLUID NO CRYSTALS SEEN
== END 2025-06-27 03:07 | disposition home or self-care (01) ==
PROVIDERS: Emergency Provider Emergency Medicine; PCP Nurse Practitioner Family; Visit Provider Emergency Medicine
DX: M70.52 Other bursitis of knee, left knee (principal); S80.212A Abrasion, left knee, initial encounter; F17.210 Nicotine dependence, cigarettes, uncomplicated; N18.2 Chronic kidney disease, stage 2 (mild); M10.9 Gout, unspecified; V18.9XXA Unspecified pedal cyclist injured in noncollision transport accident in traffic accident, initial encounter
CPT/HCPCS: 20610; 73564; 87070; 87075; 87205; 89050; 89051; 89060; 96374; 99282; A4216